=== PATIENT | male | born 1935 | race Caucasian/White ===

== ENCOUNTER → 2018-02-03 08:25 | Outpatient (CLI) | payer MEDICARE, SELFPAY ==
--- NOTE | 2018-02-03 08:25 | DT_ITS ---
This patient was seen during an EMR downtime February 02, 2018 - February 09, 2018. This patient may have a combination of paper and electronic documentation or all paper documentation. All documentation is viewable within the e-chart portion of [facility] for each patient visit.
[2018-02-08 08:50] LABS: Anion Gap 6 (5-15); BUN 14 mg/dL (7-18); BUN/Creat Ratio 16.3 RATIO (10-20); Calcium,Total 8.7 mg/dL (8.5-10.1); Chloride 104 mmol/L (98-107); Cholesterol 94 mg/dL (200); Creatinine, Serum 0.86 mg/dL (0.70-1.30); EST Glomerular Filtration Rate 91 mL/min (>60); Est Glom Filt Rate - Afr Amer 110 mL/min (>60); Glucose 91 mg/dL (74-106); Hemoglobin A1c 6.4 % (4.2-6.3); High Density Lipoprotein 45 mg/dL; Potassium 4.2 mmol/L (3.5-5.1); Sodium Level 137 mmol/L (136-145); Triglycerides 101 mg/dL; Very Low Density Lipoprotein 20 mg/dL (5-40)
== END ==
LOC: MTLAB 02-07 09:17 → MFPLAB 02-07 17:57
PROVIDERS: Family Provider Family Medicine; PCP Family Medicine; Visit Provider Family Medicine
DX: E78.5 Hyperlipidemia, unspecified (principal); I10 Essential (primary) hypertension; E11.9 Type 2 diabetes mellitus without complications
CPT/HCPCS: 80048; 80061; 83036

== ENCOUNTER → 2018-07-21 07:32 | Outpatient (CLI) | payer MEDICARE, SELFPAY ==
[2018-07-21 11:01] LABS: Anion Gap 9 (5-15); BUN 23 mg/dL (7-18); Calcium,Total 8.6 mg/dL (8.5-10.1); Chloride 106 mmol/L (98-107); Cholesterol 93 mg/dL (200); Creatinine, Serum 0.92 mg/dL (0.70-1.30); EST Glomerular Filtration Rate 84 mL/min (>60); Est Glom Filt Rate - Afr Amer 101 mL/min (>60); Glucose 90 mg/dL (74-106); High Density Lipoprotein 41 mg/dL; Potassium 4.4 mmol/L (3.5-5.1); Sodium Level 141 mmol/L (136-145); Triglycerides 85 mg/dL; Very Low Density Lipoprotein 17 mg/dL (5-40)
[2018-07-21 11:08] LABS: Hemoglobin A1c 6.2 % (4.2-6.3)
== END ==
PROVIDERS: Family Provider Family Medicine; PCP Family Medicine; Referring Provider Family Medicine; Visit Provider Family Medicine
DX: I10 Essential (primary) hypertension (principal); E78.5 Hyperlipidemia, unspecified; E11.9 Type 2 diabetes mellitus without complications
CPT/HCPCS: 36415; 80048; 80061; 83036

== ENCOUNTER → 2019-01-27 | Outpatient (CLI) | payer MEDICARE, SELFPAY ==
[2014-03-29 08:07] VITALS: BMI 31.1
[2019-01-27 10:26] LABS: Anion Gap 5 (5-15); BUN 16 mg/dL (7-18); BUN/Creat Ratio 20.8 RATIO (10-20); Calcium,Total 8.8 mg/dL (8.5-10.1); Chloride 105 mmol/L (98-107); Cholesterol 107 mg/dL (200); Creatinine, Serum 0.77 mg/dL (0.70-1.30); EST Glomerular Filtration Rate 103 mL/min (>60); Est Glom Filt Rate - Afr Amer 125 mL/min (>60); Glucose 97 mg/dL (74-106); High Density Lipoprotein 40 mg/dL; Potassium 4.2 mmol/L (3.5-5.1); Sodium Level 139 mmol/L (136-145); Triglycerides 100 mg/dL; Very Low Density Lipoprotein 20 mg/dL (5-40)
[2019-01-27 10:27] LABS: Hemoglobin A1c 6.1 % (4.2-6.3)
== END | disposition home or self-care (01) ==
PROVIDERS: Family Provider Family Medicine; PCP Family Medicine; Referring Provider Family Medicine; Visit Provider Family Medicine
DX: E11.9 Type 2 diabetes mellitus without complications (principal); I10 Essential (primary) hypertension; E78.5 Hyperlipidemia, unspecified
CPT/HCPCS: 36415; 80048; 80061; 83036

== ENCOUNTER → 2020-01-26 08:18 | Outpatient (CLI) | payer MEDICARE, SELFPAY ==
[2020-01-26 10:25] LABS: Anion Gap 7 (5-15); BUN 16 mg/dL (7-18); BUN/Creat Ratio 15.1 RATIO (10-20); Chloride 105 mmol/L (98-107); Cholesterol 96 mg/dL (200); Creatinine, Serum 1.06 mg/dL (0.70-1.30); EST Glomerular Filtration Rate 71 mL/min (>60); Est Glom Filt Rate - Afr Amer 86 mL/min (>60); Glucose 112 mg/dL (74-106); High Density Lipoprotein 44 mg/dL; Potassium 4.4 mmol/L (3.5-5.1); Sodium Level 139 mmol/L (136-145); Triglycerides 74 mg/dL; Very Low Density Lipoprotein 15 mg/dL (5-40)
[2020-01-26 10:33] LABS: Hemoglobin A1c 5.9 % (3.8-5.6)
== END ==
PROVIDERS: PCP Family Medicine; Referring Provider Family Medicine; Visit Provider Family Medicine
DX: I10 Essential (primary) hypertension (principal); R73.03 Prediabetes
CPT/HCPCS: 36415; 80048; 80061; 83036

== ENCOUNTER → 2020-02-08 11:15 | Outpatient (CLI) | payer MEDICARE, SELFPAY ==
[2014-03-29 08:07] VITALS: BMI 31.1
[2020-02-08 15:08] LABS: Absolute Lymphocyte Count 1.47 X10^3/uL (0.83-4.51); Absolute Neutrophil Count 6.9 X10^3/uL (2.0-7.7); Basophil# 0.02 X10^3/uL; Basophil% 0.2 % (0-1); Eosinophils% 2.1 % (0-5); Hematocrit 42.2 % (40-54); Hemoglobin 12.7 g/dL (13.0-16.5); Lymphocyte # 1.47 X10^3/ul (4.0); Lymphocyte % 15.6 % (19-41); Mean Corp Hgb Conc 30.1 g/dL (32-36); Mean Corpuscular Hgb 26.2 pg (27.0-32.0); Mean Platelet Vol. 10.7 fl (6.2-12.0); Monocyte# 0.76 X10^3/uL; Monocyte% 8.1 % (0-10); NRBC Flagged by Analyzer 0 % (0-5); Neutrophil # 6.92 X10^3/uL (2.7-7.7); Neutrophil % 73.6 % (47-70); Platelet Count 291 K/mm3 (150-450); RBC Distribution Width CV 17.2 % (11.6-14.6); RBC Distribution Width SD 54.3 fl (35.1-43.9); Red Blood Count 4.85 M/mm3 (4.6-6.2); White Blood Count 9.4 K/mm3 (4.4-11.0)
[2020-02-08 15:51] LABS: BNP,B-Type NATRIURETIC PEPTIDE 199.9 pg/mL (0-100)
[2020-02-08 15:52] LABS: Thyroid Stim Hormone (TSH) 1.62 uIU/mL (0.358-3.74)
== END ==
PROVIDERS: PCP Family Medicine; Referring Provider Family Medicine; Visit Provider Family Medicine
DX: I48.92 Unspecified atrial flutter (principal)
CPT/HCPCS: 36415; 83880; 84443; 85025

== ENCOUNTER → 2020-03-13 06:43 | Outpatient (CLI) | payer MEDICARE, SELFPAY ==
[2020-03-01 14:37] VITALS: BMI 30.7
--- NOTE | 2020-03-13 06:45 | ECHOCS_ITS ---
Reason For Study: A. fib Procedure This was a 2D Doppler, Color Flow transthoracic echocardiogram. The study was technically difficult. Exam performed in department. Left Ventricle Normal LV size. Left ventricular systolic function is normal. The estimated ejection fraction is 55 %. Diastolic function is indeterminate. Infero-Basal: Hypokinetic. Right Ventricle Normal RV size. Normal systolic function. Atria The left atrium is moderately enlarged. The right atrium is mildly enlarged. Mitral Valve There is mild to moderate mitral annular calcification. Mild (1+) mitral valve insufficiency. Tricuspid Valve Normal tricuspid valve. Aortic Valve Trisinus/trileaflet aortic valve. Mild (1+) aortic valve insufficiency. Pulmonic Valve The pulmonic valve is not well visualized. Great Vessels Normal aortic root. The pulmonary artery is normal size. Normal inferior vena cava. Pericardium/Pleural No pericardial effusion. Medication Diluted definity 1.5ml given slow IV push to enhance endocardial definition. MMode/2D Measurements & Calculations LVIDd: 5.4 cm IVSd: 1.3 cm Ao root diam: 4.1 cm LVIDs: 4.3 cm LVPWd: 1.0 cm RVDd: 3.8 cm FS: 20.3 % LAV(MOD-bp): 114.5 ml LA A4 area: 28.0 cm2 LA dimension(2D): 5.0 cm LAV(MOD-bp) Indexed: 57.2 ml/m2 LAV(MOD-sp2): 129.6 ml LAV(MOD-sp4): 94.1 ml RA A4 area: 24.6 cm2 Doppler Measurements & Calculations MV E max manolo: 123.5 cm/sec Ao V2 max: 166.6 cm/sec LV V1 max: 122.4 cm/sec Ao max P.2 mmHg LV V1 max P.0 mmHg PA V2 max: 108.5 cm/sec Interpretation Summary Normal LV size. Left ventricular systolic function is normal. The estimated ejection fraction is 55 %. Diastolic function is indeterminate. The left atrium is moderately enlarged. Contrast injection was performed. Ordering Physician: Javier Breaux Referring Physician: Javier Breaux Performed By: Yola Ceballos RDCS
--- NOTE | 2020-03-13 11:00 | STRESSREP ---
Stress Test Report Pharmacologic myocardial perfusion stress test. 85-year-old man with a history of coronary artery disease, status post bypass surgery and irregular heartbeat. Stress protocol: Resting EKG demonstrates atrial fibrillation flutter with a rate of 88 bpm. Occasional premature ventricular complexes are noted. Resting blood pressure is 148/72 mmHg. 0.4 mg of regadenoson was infused per usual protocol followed by rapid intravenous saline flush injection continuous EKG monitoring was performed. The maximum heart rate attained was 118 bpm which was 86% of maximum predicted heart rate the maximum workload was 1 metabolic equivalent. At rest there were no ST or T wave changes noted to suggest abnormal flow reserve at peak infusion nonspecific ST-T wave changes were noted to suggest abnormal flow reserve. The resting blood pressure was 148/72 with a final blood pressure 128/62 mmHg. Myocardial perfusion protocol. 14.1 mCi of technetium 99m sestamibi was injected at rest. 0.4 mg of regadenoson was infused per usual protocol. At peak infusion 44.6 mCi of technetium 99m sestamibi was injected stress images were obtained stress and rest images were reconstructed and compared in the short axis vertical long horizontal long axis. Gated images were also obtained Perfusion SPECT analysis: Review of the stress images demonstrate a small defect noted in the apex on the stress images and also on the resting images. The rest of the [place] appear to be fairly well perfused. No obvious areas are noted to suggest ischemia. Gated SPECT analysis: The gated ejection fraction is noted to be 37%. Conclusion: Pharmacologic myocardial perfusion stress test with no evidence of ischemia. Cardiomyopathy present. Atrial fibrillation noted.
== END ==
PROVIDERS: PCP Family Medicine; Referring Provider Internal Medicine Cardiovascular Disease; Visit Provider Internal Medicine Cardiovascular Disease
DX: I48.92 Unspecified atrial flutter (principal); Z95.1 Presence of aortocoronary bypass graft; I25.10 Atherosclerotic heart disease of native coronary artery without angina pectoris
CPT/HCPCS: 78452; 93017; 93306; A9500; Q9957; A4216; C8929; J2785

== ENCOUNTER → 2020-11-13 08:15 | Outpatient (CLI) | payer MEDICARE, SELFPAY ==
[2020-06-05 10:27] VITALS: BMI 30.7
[2020-11-13 09:59] LABS: Absolute Lymphocyte Count 1.58 X10^3/uL (0.83-4.51); Absolute Neutrophil Count 5.7 X10^3/uL (2.0-7.7); Basophil# 0.02 X10^3/uL; Basophil% 0.2 % (0-1); Eosinophil# 0.31 X10^3/uL; Eosinophils% 3.8 % (0-5); Hematocrit 44.6 % (40-54); Hemoglobin 14.1 g/dL (13.0-16.5); Lymphocyte # 1.58 X10^3/ul (4.0); Lymphocyte % 19.2 % (19-41); Mean Corp Hgb Conc 31.6 g/dL (32-36); Mean Corpuscular Hgb 26.8 pg (27.0-32.0); Mean Corpuscular Volume 84.8 fL (80-94); Mean Platelet Vol. 10.6 fl (6.2-12.0); Monocyte# 0.61 X10^3/uL; Monocyte% 7.4 % (0-10); NRBC Flagged by Analyzer 0 % (0-5); Neutrophil # 5.71 X10^3/uL (2.7-7.7); Neutrophil % 69.2 % (47-70); Platelet Count 273 K/mm3 (150-450); RBC Distribution Width SD 52.5 fl (35.1-43.9); Red Blood Count 5.26 M/mm3 (4.6-6.2); White Blood Count 8.3 K/mm3 (4.4-11.0)
[2020-11-13 10:32] LABS: ALB/GLOB Ratio 0.6 RATIO (0.9-2.4); AST(SGOT) 35 U/L (15-37); Alanine Aminotransfer ALT/SGPT 27 U/L (16-61); Albumin, Serum 2.9 g/dL (3.2-5.0); Alkaline Phosphatase 142 U/L (45-117); Anion Gap 6 (5-15); BUN 16 mg/dL (7-18); BUN/Creat Ratio 18.3 RATIO (10-20); Calcium,Total 8.9 mg/dL (8.5-10.1); Chloride 106 mmol/L (98-107); Creatinine, Serum 0.87 mg/dL (0.70-1.30); EST Glomerular Filtration Rate 88 mL/min (>60); Est Glom Filt Rate - Afr Amer 107 mL/min (>60); Globulin 4.9 g/dL (2.2-4.2); Glucose 96 mg/dL (74-106); Potassium 4.1 mmol/L (3.5-5.1); Protein, Total 7.8 g/dL (6.4-8.2); Sodium Level 140 mmol/L (136-145)
== END ==
PROVIDERS: PCP Family Medicine; Referring Provider Family Medicine; Visit Provider Family Medicine
DX: I48.91 Unspecified atrial fibrillation (principal)
CPT/HCPCS: 36415; 80053; 85025

== ENCOUNTER → 2020-12-11 11:55 | Outpatient (CLI) | payer MEDICARE, SELFPAY ==
[2020-06-05 10:27] VITALS: BMI 30.7
[2020-12-11 12:47] LABS: Hematocrit 45.4 % (40-54); Hemoglobin 13.8 g/dL (13.0-16.5); Mean Corp Hgb Conc 30.4 g/dL (32-36); Mean Corpuscular Hgb 26.4 pg (27.0-32.0); Mean Corpuscular Volume 86.8 fL (80-94); Mean Platelet Vol. 9.7 fl (6.2-12.0); Platelet Count 293 K/mm3 (150-450); RBC Distribution Width CV 17.1 % (11.6-14.6); RBC Distribution Width SD 54.8 fl (35.1-43.9); Red Blood Count 5.23 M/mm3 (4.6-6.2); White Blood Count 9.4 K/mm3 (4.4-11.0)
[2020-12-11 13:20] LABS: ALB/GLOB Ratio 0.6 RATIO (0.9-2.4); AST(SGOT) 27 U/L (15-37); Alanine Aminotransfer ALT/SGPT 23 U/L (16-61); Albumin, Serum 2.9 g/dL (3.2-5.0); Alkaline Phosphatase 141 U/L (45-117); Anion Gap 3 (5-15); BUN 24 mg/dL (7-18); Calcium,Total 9.4 mg/dL (8.5-10.1); Chloride 102 mmol/L (98-107); Creatinine, Serum 1.09 mg/dL (0.70-1.30); EST Glomerular Filtration Rate 68 mL/min (>60); Est Glom Filt Rate - Afr Amer 83 mL/min (>60); Globulin 5.1 g/dL (2.2-4.2); Glucose 90 mg/dL (74-106); Potassium 4.6 mmol/L (3.5-5.1); Sodium Level 135 mmol/L (136-145)
== END ==
PROVIDERS: PCP Family Medicine; Referring Provider Urology; Visit Provider Urology
DX: Z01.812 Encounter for preprocedural laboratory examination (principal); E78.5 Hyperlipidemia, unspecified
CPT/HCPCS: 36415; 80053; 85027

== ENCOUNTER → 2020-12-22 14:04 | Outpatient (CLI) | payer MEDICARE, SELFPAY ==
[2020-06-05 10:27] VITALS: BMI 30.7
== END ==
PROVIDERS: PCP Family Medicine; Referring Provider Urology; Visit Provider Urology
DX: Z03.818 Encounter for observation for suspected exposure to other biological agents ruled out (principal)
CPT/HCPCS: 87635; C9803; U0002

== ENCOUNTER → 2021-02-16 07:46 | Outpatient (CLI) | payer MEDICARE, SELFPAY ==
[2021-01-02 07:53] VITALS: BMI 29.3
[2021-02-16 10:11] LABS: Cholesterol 117 mg/dL (200); High Density Lipoprotein 41 mg/dL; Triglycerides 79 mg/dL; Very Low Density Lipoprotein 16 mg/dL (5-40)
== END ==
PROVIDERS: PCP Family Medicine; Referring Provider Family Medicine; Visit Provider Family Medicine
DX: E78.5 Hyperlipidemia, unspecified (principal)
CPT/HCPCS: 36415; 80061

== ENCOUNTER → 2021-07-03 09:50 | Outpatient (CLI) | payer MEDICARE, SELFPAY ==
[2021-07-03 12:56] LABS: ALB/GLOB Ratio 0.6 RATIO (0.9-2.4); AST(SGOT) 37 U/L (15-37); Alanine Aminotransfer ALT/SGPT 29 U/L (16-61); Albumin, Serum 2.9 g/dL (3.2-5.0); Alkaline Phosphatase 127 U/L (45-117); Anion Gap 7 (5-15); BUN 21 mg/dL (7-18); Calcium,Total 9.1 mg/dL (8.5-10.1); Chloride 103 mmol/L (98-107); Creatinine, Serum 0.91 mg/dL (0.70-1.30); EST Glomerular Filtration Rate 84 mL/min (>60); Est Glom Filt Rate - Afr Amer 101 mL/min (>60); Glucose 85 mg/dL (74-106); Protein, Total 7.9 g/dL (6.4-8.2); Sodium Level 137 mmol/L (136-145)
== END ==
PROVIDERS: PCP Family Medicine; Referring Provider Registered Nurse; Visit Provider Registered Nurse
DX: Z00.00 Encounter for general adult medical examination without abnormal findings (principal)
CPT/HCPCS: 36415; 80053

== ENCOUNTER → 2021-07-30 06:26 | Outpatient (CLI) | payer MEDICARE, SELFPAY ==
--- NOTE | 2021-07-30 17:15 | STRESSREP ---
Stress Test Report Pharmacologic myocardial perfusion stress test. 86-year-old man for hip surgery with a history of coronary bypass surgery. Medications aspirin, ramipril, metoprolol, furosemide, rosuvastatin, amlodipine. Stress protocol: Resting EKG demonstrates normal sinus rhythm with a rate of 70 bpm normal intervals are noted. 0.4 mg of regadenoson was infused per usual protocol followed by rapid intravenous saline flush injection continuous EKG monitoring was performed. Patient maintained sinus rhythm throughout the recording with occasional premature ventricular complexes noted. The maximum heart rate attained was 100 bpm which was 74% of max impact at heart rate the maximum workload was 1 metabolic equivalent. At rest there were no ST or T wave changes noted to suggest abnormal flow reserve and at peak infusion nonspecific ST changes were noted no atrial flutter was noted. The peak blood pressure was 154/78 mmHg. Myocardial perfusion protocol. 14.2 mCi of technetium 99m sestamibi was injected at rest. 0.4 mg of regadenoson was infused per usual protocol. At peak infusion 44.6 mCi of technetium 99m sestamibi was injected stress images were obtained stress and rest images were reconstructed and compared in the short axis vertical long horizontal long axis. Gated images were also obtained. Perfusion SPECT analysis: Review of the images demonstrate normal uptake of tracer noted in the basal and mid anterior wall, the septum, the inferior wall, and to the lateral wall. There is a small portion in the distal anterior wall with a mild perfusion defect. The resting images demonstrate a similar pattern with mild improvement in the distal urmila apical wall suggestive of mild apical ischemia. No obvious infarct is noted. Gated SPECT analysis: The gated ejection fraction is 48%. Conclusion: Mildly abnormal pharmacologic with mild distal anteroapical ischemia. Preserved ejection fraction.
== END ==
PROVIDERS: PCP Family Medicine; Referring Provider Nurse Practitioner Family; Visit Provider Nurse Practitioner Family
DX: Z01.810 Encounter for preprocedural cardiovascular examination (principal); I25.10 Atherosclerotic heart disease of native coronary artery without angina pectoris; Z95.1 Presence of aortocoronary bypass graft; I48.92 Unspecified atrial flutter; E78.5 Hyperlipidemia, unspecified; I10 Essential (primary) hypertension
CPT/HCPCS: 78452; 93017; A9500; A4216; J2785

== ENCOUNTER 2021-08-13 07:37 | Day surgery (SDC) | payer MEDICARE, SELFPAY ==
--- NOTE | 2021-08-08 09:45 | RAD_ITS ---
STUDY: XR Chest 2 Views 08/08/2021 9:48 AM REASON FOR EXAM: Male, 86 years old. CHEST PAIN Abnormal nuclear stress COMPARISON: None TECHNIQUE: XR Chest 2 Views FINDINGS: There is no demonstrated pleural abnormality. There are multiple median sternotomy wires. Normal heart size. Normal mediastinum. Normal gloria. Prominent appearing increased interstitial lung markings. Normal visualized pulmonary arteries. There is atherosclerotic calcification of the aortic arch with tortuosity. There are diffuse degenerative changes of the visualized thoracic spine. There is degenerative osteoarthritis of the bilateral shoulders. There is no demonstrated abnormality of the visualized soft tissue structures of the upper abdomen. RAD/Chest PA and Lateral IMPRESSION: There are no acute findings. Electronically Signed: Reji Moreno MD at 17:42 EST , Service support ,
[2021-08-08 09:58] LABS: Absolute Lymphocyte Count 1.53 X10^3/uL (0.83-4.51); Absolute Neutrophil Count 4.3 X10^3/uL (2.0-7.7); Basophil# 0.03 X10^3/uL; Basophil% 0.5 % (0-1); Hematocrit 37.5 % (40-54); Hemoglobin 12.3 g/dL (13.0-16.5); Lymphocyte # 1.53 X10^3/ul (0.83-4.51); Lymphocyte % 24.1 % (19-41); Mean Corp Hgb Conc 32.8 g/dL (32-36); Mean Corpuscular Hgb 28.3 pg (27.0-32.0); Mean Corpuscular Volume 86.4 fL (80-94); Mean Platelet Vol. 10.1 fl (6.2-12.0); Monocyte# 0.48 X10^3/uL; Monocyte% 7.6 % (0-10); NRBC Flagged by Analyzer 0 % (0-5); Neutrophil % 67.6 % (47-70); Platelet Count 207 K/mm3 (150-450); RBC Distribution Width CV 17.2 % (11.6-14.6); RBC Distribution Width SD 55.1 fl (35.1-43.9); Red Blood Count 4.34 M/mm3 (4.6-6.2); White Blood Count 6.4 K/mm3 (4.4-11.0)
[2021-08-08 10:11] LABS: International Normalized Ratio 1.1; Prothrombin Time (Protime)PT. 13.2 SECONDS (11.7-14.9)
[2021-08-08 10:13] LABS: Partial Thromboplast Time 35.1 Seconds (24.1-36.2)
[2021-08-08 10:29] LABS: Anion Gap 7 (5-15); BUN 19 mg/dL (7-18); BUN/Creat Ratio 23.4 RATIO (10-20); Calcium,Total 9.5 mg/dL (8.5-10.1); Chloride 106 mmol/L (98-107); Creatinine, Serum 0.81 mg/dL (0.70-1.30); EST Glomerular Filtration Rate 96 mL/min (>60); Est Glom Filt Rate - Afr Amer 116 mL/min (>60); Glucose 94 mg/dL (74-106); Potassium 4.1 mmol/L (3.5-5.1); Sodium Level 141 mmol/L (136-145)
[2021-08-10 08:00] VITALS: BMI 28.5
--- NOTE | 2021-08-13 10:18 | CL.D_ITS ---
Patient Name: CARIDAD WARD Study Date: 08/13/2021 Performing: Javier Breaux MD Ht: 66.14 inches 168 cm : 1935 Wt: 176.37 lbs 80 kg Age: 86 Gender: male BSA: 1.9 PROCEDURE(S) PERFORMED [id number]-[id number]/COR/CABG [id number]-AO ROOT ANGIO WITH HEART CATH [id number] CLINICAL PROFILE AND INDICATIONS Indications: Stable Known CAD Heart Failure: None Stress/Imaging Date: 08/08/2021 CAD Presentations: No Sxs, no angina. CONCLUSIONS Severe kasaan vessel disease with totally occluded LAD circumflex artery and right coronary artery. Patent left internal mammary artery to the left anterior descending artery Presumed occlusion of the saphenous vein grafts which were not seen on aortogram RECOMMENDATIONS Medical therapy. Patient is at moderate risk for perioperative event with hip surgery. DESCRIPTION OF PROCEDURE The patient arrived to the procedure lab. The risks and benefits of the procedure as well as a full d escription of our services here and current unavailability of surgical backup were fully explained to the patient and/or their significant other prior to the catheterization. The Timeout was completed, verifying the correct patient and procedure. The patient's procedural site was prepped and draped in the usual fashion. Local anesthetic was given subcutaneously to right groin region with Lidocaine 2%. Using a modified Seldinger technique, arterial access was obtained via the right femoral artery, a 5 Fr sheath was inserted. Right Coronary Artery selective angiography was then performed in multiple v iews using a 5 Fr. 3DRC (Dominic) catheter. RCA occluded. Left internal mammary artery graft to the LAD selective angiography was performed in multiple views using a 5 Fr. IM catheter. Left Coronary Ar bere selective angiography was performed in multiple views using a 5 Fr. JL4 catheter. Ascending (root) aorta selective angiography was then performed in single view using 5fr Pigtail cath eter.. Ascending (root) aorta selective angiography was then performed in single view using 5fr Pigta il catheter..The arterial sheath was pulled and manual compression applied until hemostasis is achiev ed. CORONARY ANGIOGRAPHY DOMINANCE: Right Dominant LEFT HEART ASSESSMENT Left Ventricular Ejection Fraction: by Echo 55 % Normal Left Ventricular systolic function LEFT MAIN: Moderate calcification, Distal 80 LEFT ANTERIOR DESCENDING ARTERY: PROX LAD: is occluded CIRCUMFLEX ARTERY: MID CIRC: is occluded RIGHT CORONARY ARTERY: PROX RCA: is occluded GRAFTS: MARTINEZ graft to the Mid LAD is patent AORTIC ROOT: Atherosclerotic No saphenous vein graft bypass grafts are seen COMPLICATIONS No Complications PROCEDURE MEDICATIONS Versed 1 mg IV Fentanyl 50 mcg IV Fentanyl 25 mcg IV Oxygen: 2 L/min via nasal cannula SUMMARY OF HEMODYNAMIC DATA Time AIR REST ECG 08:05:03 AO 142/58 (92) SA 09:46:53 10:11:04 Signed By Javier Breaux MD On 08/13/2021 10:18:09 AM Javier Breaux MD
--- NOTE | 2021-08-13 14:16 | ECHOCS_ITS ---
Reason For Study: s/p CABG Procedure This was a 2D Doppler, Color Flow transthoracic echocardiogram. Technically difficult study, contrast injection performed. Echo done post cath (groin). Exam performed in phlebotomist lab assistant. Left Ventricle Normal LV size. Severe concentric left ventricular hypertrophy. Left ventricular systolic function is normal. The estimated ejection fraction is 60 %. No regional wall motion abnormalities noted. Right Ventricle Normal RV size. Normal systolic function. Atria The left atrium is moderately enlarged. Normal right atrium. Mitral Valve Normal mitral valve. Tricuspid Valve Normal tricuspid valve. Aortic Valve The aortic valve is not well visualized. Pulmonic Valve The pulmonic valve is not well visualized. Great Vessels Normal aortic root. The pulmonary artery is normal size. Normal inferior vena cava. Pericardium/Pleural No pericardial effusion. Medication Diluted definity 2ml given slow IV push to enhance endocardial definition. MMode/2D Measurements & Calculations LVIDd: 5.2 cm IVSd: 1.7 cm LA dimension: 4.5 cm LVIDs: 3.5 cm LVPWd: 1.5 cm FS: 33.8 % LAV(MOD-bp): 88.7 ml LA A4 area: 27.0 cm2 RA A4 area: 22.4 cm2 LAV(MOD-bp) Indexed: 46.7 ml/m2 LAV(MOD-sp2): 80.7 ml LAV(MOD-sp4): 100.1 ml Time Measurements MV dec time: 0.24 sec Doppler Measurements & Calculations MV E max kevin: 94.6 cm/sec Lat Peak E' Kevin: 13.9 cm/sec Med Peak E' Kevin: 7.6 cm/sec MV A max kevin: 92.2 cm/sec E/E' lat: 6.8 E/E' med: 12.5 MV E/A: 1.0 MV V2 max: 104.3 cm/sec MV P1/2t max kevin: 105.9 cm/sec Ao V2 max: 170.8 cm/sec MV max P.4 mmHg MV P1/2t: 130.0 msec Ao max P.7 mmHg MV V2 mean: 63.1 cm/sec MV dec slope: 238.7 cm/sec2 MV mean P.9 mmHg MV V2 VTI: 46.0 cm MVA(P1/2t): 1.7 cm2 LV V1 max: 106.1 cm/sec PA V2 max: 108.1 cm/sec LV V1 max P.5 mmHg ECHO/Echo Complete W/ Contrast Interpretation Summary Normal LV size. Severe concentric left ventricular hypertrophy. Left ventricular systolic function is normal. The estimated ejection fraction is 60 %. Contrast injection was performed. Ordering Physician: Javier Breaux Referring Physician: David Rios Performed By: Edison Waggoner RCS
== END 2021-08-13 15:40 | disposition home or self-care (01) ==
PROVIDERS: PCP Family Medicine; Referring Provider Internal Medicine Cardiovascular Disease; Visit Provider Internal Medicine Cardiovascular Disease
DX: I25.10 Atherosclerotic heart disease of native coronary artery without angina pectoris (principal); I25.82 Chronic total occlusion of coronary artery; Z95.1 Presence of aortocoronary bypass graft; I10 Essential (primary) hypertension; I48.92 Unspecified atrial flutter; E78.5 Hyperlipidemia, unspecified; E66.9 Obesity, unspecified; Z68.28 Body mass index [BMI] 28.0-28.9, adult; I25.2 Old myocardial infarction; M19.90 Unspecified osteoarthritis, unspecified site; I87.2 Venous insufficiency (chronic) (peripheral); Z79.82 Long term (current) use of aspirin; Z79.899 Other long term (current) drug therapy; Z87.891 Personal history of nicotine dependence; R07.9 Chest pain, unspecified; R06.02 Shortness of breath; R93.1 Abnormal findings on diagnostic imaging of heart and coronary circulation
CPT/HCPCS: 36415; 71046; 80048; 85025; 85610; 85730; 93306; 93455; 93567; 99152; 99153; J7040; Q9957; A4216; C1769; C8929; Q9967

== ENCOUNTER 2021-09-08 10:34 | Inpatient (IN) | payer MEDICARE, SELFPAY ==
[2021-09-08] VITALS (11 sets, daily range): BP systolic 114–125; BP diastolic 43–74; PULSE 53–83; RESP 14–20; TEMP 36.1–36.8; O2SAT 92–100; BMI 28.1; BMI 26.7
--- NOTE | 2021-09-08 10:46 | ED.VIS.LOWEX ---
HPI History of Present Illness Chief Complaint: Lower Extremity Injury Detail of Chief Complaint: Fall with left hip injury Informant: patient Narrative Narrative: Patient presents to the emergency department via EMS from home. Patient apparently had a fall where he lost his balance and fell directly onto the left hip. Patient states that he was just discharged from [facility] yesterday after having hip surgery on his left hip. Patient denies striking his head or loss of consciousness. Patient unable to bear weight. Patient states that his son helped get him up yesterday but today unable to walk or bear weight. [facility] Medical History (Updated 09/08/21 @ 12:[address] Rosalino Wetzel, DO) Arthritis Atherosclerosis of coronary artery of [place] heart without angina pectoris Chronic atrial flutter Essential hypertension History of [place] (myocardial infarction) (1983) Hyperlipidemia Left ventricular hypertrophy New onset atrial flutter (02/08/20) Obesity Osteoarthritis Venous insufficiency of both lower extremities Home Medications amlodipine 10 mg PO DAILY 06/23/13 [History Last Taken 08/13/21] pentoxifylline 400 mg PO BID 06/23/13 [History Last Taken 08/13/21] rosuvastatin 20 mg PO QHS 06/23/13 [History Last Taken Unknown] metoprolol tartrate 100 mg-hydrochlorothiazide 25 mg tablet 1 tab PO DAILY 02/24/20 [History Last Taken 08/13/21] multivitamin 1 tab PO DAILY 02/24/20 [History Last Taken Unknown] omega-3 fatty acids-fish oil 360 mg-1,200 mg capsule 1 cap PO DAILY 02/24/20 [History Last Taken Unknown] ramipril 10 mg capsule 10 mg PO DAILY cap 02/24/20 [History Last Taken 08/13/21] aspirin 325 mg tablet 325 mg PO DAILY 06/05/20 [History Last Taken 08/13/21] alfuzosin 10 mg tablet,extended release 24 hr 10 mg PO DAILY 07/19/21 [History Last Taken Unknown] furosemide 20 mg tablet 20 mg PO .COMPLEX PRN tab 07/19/21 [History Last Taken Unknown] doxycycline monohydrate 100 mg PO DAILY 09/08/21 [History Last Taken Unknown] famotidine 20 mg PO DAILY 09/08/21 [History Last Taken Unknown] tramadol 50 mg PO 09/08/21 [History Last Taken Unknown] Allergy/AdvReac Type Severity Reaction Status Date / Time No Known Drug Allergies Allergy NONE Verified 09/08/21 10:35 Family History (Reviewed 07/19/21 @ 10:51 by David Raymundo GOVERNMENT OPERATIONS CONSULTANT, GOVERNMENT OPERATIONS CONSULTANT-C) Mother CAD (coronary artery disease) Sister Cancer lung Surgical History H/O coronary artery bypass surgery (1983) History of carpal tunnel release History of left heart catheterization (08/13/21) History of right hip replacement History of total bilateral knee replacement Social History (Reviewed 07/19/21 @ 10:51 by David Raymundo GOVERNMENT OPERATIONS CONSULTANT, GOVERNMENT OPERATIONS CONSULTANT-C) Smoking Status: Former smoker ROS ROS ED Constitutional Constitutional ED: Reports systems reviewed and no addt'l complaints, except as documented; Denies body ache(s), change in weight or chills Eyes Eyes: Denies acute decrease in peripheral vision, change in vision, double vision or loss of vision ENT ENT ED: Reports none; Denies ear pain, lip swelling, loss taste/smell, neck pain, otalgia or sore throat Cardiovascular Cardiovascular: Reports none; Denies abdominal pain, chest pain with activity, leg edema, lightheadedness, palpitations, rapid heart rate or syncope Respiratory/Chest Respiratory/Chest: Reports none; Denies change in mental status, dry cough, dyspnea, hemoptysis, shortness of breath at rest or shortness of breath with exertion Gastrointestinal Gastrointestinal: Reports none; Denies abdominal pain, change in stool character, diarrhea, hematemesis, hematochezia, melena, rectal bleeding or vomiting Genitourinary Genitourinary ED: Reports none; Denies abdominal discomfort, anuria, dysuria, genital pain or polyuria Musculoskeletal Musculoskeletal: Reports none and other Details: Left hip pain/injury ; Denies arthralgias, back pain, difficulty walking, extremity pain, muscle weakness or myalgias Integumentary Reports none; Denies abscess or rash Neurologic Neurologic: Reports none; Denies abnormal gait, confusion, focal weakness, frequent falls, headache(s), loss of vision, numbness, paresthesias, radicular pain, vertigo or weakness Psychiatric Psychiatric: Reports systems reviewed and no addt'l complaints, except as documented and none; Denies behavioral changes, confusion, difficulty concentrating, hallucinations, suicidal ideation, tactile hallucinations or visual hallucinations Endocrine Endocrinology: Denies none, cold intolerance, excessive sweating, fatigue or heat intolerance Hematologic/Lymphatic Hematologic/Lymphatic: Reports none; Denies anemia, easy bleeding or easy bruising Allergic/Immunologic Allergic/Immunologic ED: Denies as per HPI, none, lip swelling, mouth swelling, throat swelling, tongue swelling or hives EXAM Physical Exam Const Vital Signs: 09/08/21 10:35 09/08/21 11:42 09/08/21 12:11 Temperature 96.9 F L Temperature Source Temporal Pulse Rate 53 L 65 74 Respiratory Rate 14 16 18 Blood Pressure 121/57 H 125/52 H 114/56 L Blood Pressure Mean 78 76 75 Pulse Ox 94 92 97 Oxygen Delivery Method Room Air Room Air Room Air Positive well nourished and well developed General Appearance ED: well developed and NAD HEENT Reports TM's clear and moist mucous membranes normocephalic and atraumatic; Negative for trauma or tenderness Tympanic Membrane ED: Yes TM's clear Eyes PERRL and EOMs intact bilaterally General Eye ED: Negative for pale conjunctiva or scleral icterus Neck no lymphadenopathy, supple and no JVD General: Negative for tenderness Chest Wall inspection of chest normal and palpation of chest normal Chest: Negative for tenderness Resp normal respiratory effort and clear to auscultation bilaterally Effort and Inspection: Negative for respiratory distress or pain with movement Auscultation: Negative for rhonchi, wheezes or diminished lung sounds Cardio S1 normal heart sound, S2 normal heart sound and no murmurs Cardio Narrative: Irregularly irregular Peripheral Pulses: pulses 2+ throughout GI normal to inspection, nondistended, normoactive bowel sounds, soft to palpation, non-tender, non-distended and no masses Back/Spine no CVA tenderness and no thoracic nor lumbar tenderness Extremity Extremity Narrative: Patient with tenderness palpation over left hip with pain with logrolling. The left leg is shortened and externally rotated. Neurovascular intact distally. Patient has surgical wound over the lateral left hip with ecchymosis and bruising around it. General Extremety ED: Negative for edema General Extremity: Negative for edema Neuro oriented x3, CN's II-XII intact bilaterally, no sensory deficits noted and gait normal Sensorium / Orientation: awake, alert, oriented to person, oriented to place and oriented to time Motor Exam: strength 5/5 throughout and strength abnormal Psych mental status grossly normal Skin no rashes or lesions noted and no wounds MDM MDM MDM Narrative Medical decision making narrative: IV line established on arrival. Patient had x-rays of the left hip that did show a periprosthetic fracture. I discussed case with patient's orthopedic doctor Dr. Ashford who asked that we admit to medicine and he will evaluate patient for possible surgical intervention. Lab Data Attestation: I reviewed the patient's lab results. Labs: Laboratory Results - last 24 hr 09/08/21 09/08/21 10:52 10:52 WBC 11.6 H RBC 3.25 L Hgb 9.2 L Hct 28.5 L MCV 87.7 MCH 28.3 MCHC 32.3 RDW Std Deviation 50.0 H RDW Coeff of Denise 15.7 H Plt Count 253 MPV 9.7 Immature Gran % (Auto) 0.800 Neut % (Auto) 82.9 H Lymph % (Auto) 7.4 L [place] % (Auto) 7.8 Eos % (Auto) 0.9 Baso % (Auto) 0.2 Absolute Neuts (auto) 9.6 H Absolute Lymphs (auto) 0.86 Nucleated RBC % 0 Sodium 136 Potassium 3.7 Chloride 98 Carbon Dioxide 30.0 Anion Gap 8 BUN 54 H Creatinine 1.45 H Estim Creat Clear Calc 34.82 Est GFR (MDRD) Af Amer 59 L Est GFR (MDRD) Non-Af 49 L BUN/Creatinine Ratio 37.2 H Glucose 124 H Calcium 8.7 Radiography Diagnostic Testing: Clinical Impression(s) from Imaging Studies Hip/Pelvis X-Ray 09/08/21 11:30 IMPRESSION: Acute appearing bony fracture around the proximal intertrochanteric region of the left hip arthroplasty. Right hip arthroplasty. Electronically Signed: Jazz Diamond MD at 12:28 EST Tel , Service support , Discharge Plan Dx/Rx/DC Orders Clinical Impression: Periprosthetic fracture around internal prosthetic left hip joint Disposition Disposition: Acute Care [facility]
[2021-09-08 11:01] LABS: Absolute Lymphocyte Count 0.86 X10^3/uL (0.83-4.51); Absolute Neutrophil Count 9.6 X10^3/uL (2.0-7.7); Basophil# 0.02 X10^3/uL; Basophil% 0.2 % (0-1); Eosinophils% 0.9 % (0-5); Hematocrit 28.5 % (40-54); Hemoglobin 9.2 g/dL (13.0-16.5); Lymphocyte # 0.86 X10^3/ul (0.83-4.51); Lymphocyte % 7.4 % (19-41); Mean Corp Hgb Conc 32.3 g/dL (32-36); Mean Corpuscular Hgb 28.3 pg (27.0-32.0); Mean Corpuscular Volume 87.7 fL (80-94); Mean Platelet Vol. 9.7 fl (6.2-12.0); Monocyte% 7.8 % (0-10); NRBC Flagged by Analyzer 0 % (0-5); Neutrophil # 9.61 X10^3/uL (2.7-7.7); Neutrophil % 82.9 % (47-70); Platelet Count 253 K/mm3 (150-450); RBC Distribution Width CV 15.7 % (11.6-14.6); Red Blood Count 3.25 M/mm3 (4.6-6.2); White Blood Count 11.6 K/mm3 (4.4-11.0)
[2021-09-08 11:18] LABS: Anion Gap 8 (5-15); BUN 54 mg/dL (7-18); BUN/Creat Ratio 37.2 RATIO (10-20); Calcium,Total 8.7 mg/dL (8.5-10.1); Chloride 98 mmol/L (98-107); Creatinine, Serum 1.45 mg/dL (0.70-1.30); EST Glomerular Filtration Rate 49 mL/min (>60); Est Glom Filt Rate - Afr Amer 59 mL/min (>60); Estimated Creatinine Clearance 34.82 ml/min; Glucose 124 mg/dL (74-106); Potassium 3.7 mmol/L (3.5-5.1); Sodium Level 136 mmol/L (136-145)
--- NOTE | 2021-09-08 11:30 | RAD_ITS ---
STUDY: X-RAY - LEFT FEMUR REASON FOR STUDY: Male, 86 years old. Fall TECHNIQUE: 4 view(s) of the femur. COMPARISON: Left hip x-ray September 08, 2021 FINDINGS: There is an acute fracture of the left proximal femur adjacent to the left medial to the hip arthroplasty with metallic femoral component. There is no significant displacement. The bones are osteopenic. There is partial visualization of the left knee arthroplasty. The proximal tibia appears irregular and is partially visualized on this study. RAD/Femur Min 2 Views IMPRESSION: Acute Fracture line seen adjacent to the left hip arthroplasty femoral metallic components on the medial side of the left femur with possible extension into the left intertrochanteric region. Left knee arthroplasty inhomogeneous appearance of the partially visualized tibia recommend dedicated left knee x-ray. Electronically Signed: Jazz Diamond MD at 12:38 EST Tel , Service support ,
--- NOTE | 2021-09-08 11:30 | RAD_ITS ---
STUDY: X-RAY - PELVIS AND LEFT HIP REASON FOR EXAM: Male, 86 years old. Fall TECHNIQUE: 3 views of the pelvis and hip. COMPARISON: July 06, 2013 right hip x-ray FINDINGS: There is a non-specific bowel gas pattern. No degenerative change of the lumbar spine. There are atherosclerotic vascular calcifications. Normal bilateral iliac wings, sacroiliac joints and visualized sacrum. Normal bilateral superior and inferior pubic rami. Normal pubic symphysis. Normal bilateral ischial tuberosities. There is an acute fracture around the left side hip arthroplasty. There is a visualized fracture of the proximal left femur possibly extending into the greater trochanter. There is a visualized right hip arthroplasty. There is stable heterotopic bone overlying the left inferior pubic ramus. RAD/HIP, UNI W/ Pelvis 2-3 Views IMPRESSION: Acute appearing bony fracture around the proximal intertrochanteric region of the left hip arthroplasty. Right hip arthroplasty. Electronically Signed: Jazz Diamond MD at 12:28 EST Tel , Service support ,
--- NOTE | 2021-09-08 13:00 | EKG12_ITS ---
Test Reason : PREOP Blood Pressure : / mmHG Vent. Rate : 064 BPM Atrial Rate : 064 BPM P-R Int : 264 ms QRS Dur : 172 ms QT Int : 476 ms P-R-T Axes : 083 260 036 degrees QTc Int : 491 ms Sinus rhythm with 1st degree A-V block Right bundle branch block Septal infarct , age undetermined Abnormal ECG No previous ECGs available Confirmed by KELLEE KNOTT, JOHANN ([id number]), international editorial producer KANG HWANG ([id number]) on 09/13/2021 1:51:59 PM Referred By: CARI Confirmed By:STEFAN GOODSON MD
[2021-09-08] MEDS: 0.9% Normal Saline 1,000 ML 75 ML IV (14:38)
[2021-09-08] MEDS: oxyCODONE 5 MG Tablet PO (17:43)
[2021-09-08] MEDS: Tamsulosin HCl 0.4 MG Capsule PO (17:44)
--- NOTE | 2021-09-08 18:16 | HP.PCM.HOS_ITS ---
HPI - General General Date of Admission: 09/08/21 Date of Service: 09/08/21 Chief Complaint: Left hip pain status post fall HPI Narrative CARIDAD WARD, is a 86 M who presented to urgency department at [facility] via EMS from home. The patient had a mechanical fall where he lost his balance and fell directly on his newly operated left hip. The patient was discharged on Friday from [facility] after undergoing a left hip replacement on Friday by Dr. Ashford. The family indicates they have had significant difficulty with him and his mobility, pain control, and ability to be mobile since his discharge from the hospital. It sounds as if he has had more than one fall when talking to the daughter. She states he slid out of his chair yesterday and they had to leave him on the floor as she and her mother whe n unable to get him off the floor at that time and his son had to help get him up into the chair. He is currently complaining of no pain but states he has considerable pain when he tries to ambulate. He had cardiac clearance for his hip replacement by Dr. Breaux on 08/13/2021 where he had a heart catheterization. His vital signs in the emergency department were overall unimpressive. His oxygen saturation was 92 to 100% on room air. His CBC showed mild white count elevation at 11.6, hemoglobin of 9.2 which is below his baseline. His baseline appears to be at 12.3. He has no signs of acute bleeding at this time. Platelet count was normal. His BMP shows normal electrolytes but an elevated BUN and creatinine at 54 and 1.45 respectively. His baseline creatinine appears to be 0.8-1. Of note he is on Lasix and hydrochlorothiazide at home. The rest of his labs were fairly unremarkable. His EKG shows no ST-T wave changes consistent with ischemia but does show a right bundle branch block and a first- degree AV block. Left femoral x-rays show an acute fracture to the left hip arthroplasty femoral metallic components on the medial side of the left femur with possible extension into the intertrochanteric region with pelvic x-rays showing marked proximal intertrochanteric region fracture.The emergency department discussed the case with Dr. Ashford and [facility]. Plan is for [facility] tomorrow. [facility] Medical History Arthritis Atherosclerosis of coronary artery of [place] heart without angina pectoris Chronic atrial flutter Depression Essential hypertension Hearing loss, left Hearing loss, right History of [place] (myocardial infarction) (1983) Hyperlipidemia Left ventricular hypertrophy New onset atrial flutter (02/08/20) Obesity Osteoarthritis Osteoporosis Venous insufficiency of both lower extremities Home Medications amlodipine 10 mg PO DAILY 06/23/13 [History Last Taken 08/13/21] pentoxifylline 400 mg PO BID 06/23/13 [History Last Taken 08/13/21] rosuvastatin 20 mg PO QHS 06/23/13 [History Last Taken Unknown] metoprolol tartrate 100 mg-hydrochlorothiazide 25 mg tablet 1 tab PO DAILY 02/24/20 [History Last Taken 08/13/21] multivitamin 1 tab PO DAILY 02/24/20 [History Last Taken Unknown] omega-3 fatty acids-fish oil 360 mg-1,200 mg capsule 1 cap PO DAILY 02/24/20 [History Last Taken Unknown] ramipril 10 mg capsule 10 mg PO DAILY cap 02/24/20 [History Last Taken ] aspirin 325 mg tablet 325 mg PO BID 06/05/20 [History Last Taken 08/13/21] furosemide 20 mg tablet 20 mg PO DAILY PRN PRN tab 07/19/21 [History Last Taken Unknown] doxycycline monohydrate 100 mg PO BID 09/08/21 [History Last Taken Unknown] famotidine 20 mg PO DAILY 09/08/21 [History Last Taken Unknown] ferrous sulfate [FeroSul] 325 mg PO BID 09/08/21 [History Last Taken Unknown] folic acid 1 mg PO DAILY 09/08/21 [History Last Taken Unknown] sennosides [Senokot] 8.6 mg PO BID PRN 09/08/21 [History Last Taken Unknown] tramadol 50 mg PO Q6H PRN PRN 09/08/21 [History Last Taken Unknown] Allergy/AdvReac Type Severity Reaction Status Date / Time No Known Drug Allergies Allergy NONE Verified 09/08/21 10:35 Family History Mother CAD (coronary artery disease) Sister Cancer lung Surgical History H/O coronary artery bypass surgery (1983) History of appendectomy History of carpal tunnel release History of left heart catheterization (08/13/21) History of right hip replacement History of surgical removal of skin lesion History of total bilateral knee replacement History of total left hip replacement Social History (Updated 09/08/21 @ 18:[address] Shanice Peña DO) Smoking Status: Former smoker alcohol intake: never substance use type: does not use ROS Constitutional Constitutional: Reports weakness; Denies anorexia, change in weight, chills, fatigue, fever(s), malaise, night sweats or other Eyes Eyes: Denies blurry vision, change in eye color, change in vision, discharge from eye(s), double vision, erythema, eye pain, loss of vision or other ENT HEENT: Denies abnormal hearing, dysphagia, ear pain, epistaxis, headache(s), hearing loss, nasal congestion, nasal discharge, post nasal drip, sinus pressure, sore throat or other Cardiovascular Cardiovascular: Denies chest pain, claudication, dyspnea on exertion, edema, lightheadedness, orthopnea, palpitations, paroxysmal nocturnal dyspnea, rapid heart rate, syncope or other Respiratory/Chest Respiratory/Chest: Denies cough, dyspnea, excessive phlegm production, hemoptysis, productive cough, shortness of breath at rest, shortness of breath with exertion, wheezing or other Gastrointestinal Gastrointestinal: Denies abdominal pain, coffee ground emesis, constipation, diarrhea, dyspepsia, hematemesis, hematochezia, loose stools, melena, nausea, vomiting or other Genitourinary Genitourinary: Denies burning urination, difficulty urinating, dysuria, hematuria, nocturia, urinary frequency, urinary hesitancy, urinary incontinence, urinary urgency or other Musculoskeletal Musculoskeletal: Reports joint pain; Denies arthralgias, back pain, joint sti ffness, joint swelling, myalgias, neck pain or other Neurologic Neurologic: Reports abnormal gait; Denies abnormal speech, confusion, disequilibrium, dizziness, focal weakness, headache(s), numbness, paresthesias, seizure-like activity, seizures, syncope, tingling, tremor(s) or other Psychiatric Psychiatric: Denies anxiety, depression, homicidal ideation, suicidal ideation or other Endocrine Endocrinology: Denies change in body appearance, cold intolerance, excessive sweating, heat intolerance, polydipsia, polyuria or other Hematologic/Lymphatic Hematologic/Lymphatic: Denies anemia, easy bleeding, easy bruising, lymphadenopathy or other Allergic/Immunologic Allergic/Immunologic: Denies rhinitis, hives, eczemia, asthma or other Vital Signs Vital Signs Vital Signs: 09/08/21 10:35 09/08/21 11:42 09/08/21 12:11 Temperature 96.9 F L Temperature Source Temporal Pulse Rate 53 L 65 74 Respiratory Rate 14 16 18 Respiratory Effort Respiratory Depth Respiratory Pattern Blood Pressure 121/57 H 125/52 H 114/56 L Blood Pressure Mean 78 76 75 Blood Pressure Source Blood Pressure Position Blood Pressure Location Pulse Ox 94 92 97 Oxygen Delivery Method Room Air Room Air Room Air 09/08/21 13:05 09/08/21 13:49 09/08/21 14:40 Temperature 97.9 F 97.5 F L Temperature Source Temporal Oral Pulse Rate 83 64 Respiratory Rate 20 H 18 Respiratory Effort Normal Respiratory Depth Normal Respiratory Pattern Normal Blood Pressure 116/74 122/44 H Blood Pressure Mean 88 70 Blood Pressure Source Monitor Blood Pressure Position Semi-Fowlers Blood Pressure Location Right Arm Pulse Ox 100 94 Oxygen Delivery Method Room Air Room Air Room Air 09/08/21 16:17 09/08/21 16:46 Temperature Temperature Source Pulse Rate 77 Respiratory Rate Respiratory Effort Respiratory Depth Respiratory Pattern Blood Pressure Blood Pressure Mean Blood Pressure Source Blood Pressure Position Blood Pressure Location Pulse Ox Oxygen Delivery Method Room Air Weight Weight: 77.4 kg Body Mass Index (BMI) 26.7 Physical Exam Const alert, oriented x3 and no apparent distress Constitutional Narrative: Elderly white male lying in bed, appears comfortable at this time, and daughter at bedside, nontoxic General Appearance: cooperative HEENT normocephalic, head/scalp atraumatic and moist oral mucous membranes HEENT Narrative: Mildly hard of hearing, dentures in place, no thrush, Mallampati 2 Eyes PERRL, EOMs intact bilaterally and conjunctivae normal Eyes Narrative: No scleral icterus Neck no lymphadenopathy, supple, no JVD and no carotid bruits Neck Narrative: Trachea midline without thyroid enlargement, no carotid bruits bilaterally Resp normal respiratory effort, no retractions, no use of accessory muscles and clear to auscultation bilaterally Auscultation: Negative for crackles, rales, rhonchi or wheezes Cardio regular rate, regular rhythm, S1 normal heart sound, S2 normal heart sound, no murmurs, no rub, no gallops, no clicks and no JVD GI normal to inspection, nondistended, normoactive bowel sounds, soft to palpation, non-tender and non-distended Extremity Extremity Narrative: Left lower extremity is shortened and externally rotated, site of left hip replacement has dressing in place and is clean dry and intact, ecchymosis surrounding the site, some swelling is present, no cyanosis or clubbing Peripheral Pulses: Yes pulses 2+ throughout Skin no rashes or lesions noted, no wounds, skin turgor normal, no jaundice, no petechiae and no mottling Skin Narrative: See above for surgical incision appearance Neuro oriented x3 and CN's II-XII intact bilaterally Neuro Narrative: Moves all extremities except left lower extremity secondary to pain Sensorium / Orientation: awake and alert Psych affect normal Results Lab / Micro Data Attestation: I reviewed the patient's lab results. Result Diagrams: 09/08/21 10:52 09/08/21 10:52 Labs: Laboratory Results - last 24 hr 09/08/21 10:52: WBC 11.6 H, RBC 3.25 L, Hgb 9.2 L, Hct 28.5 L, MCV 87.7, MCH 28.3, MCHC 32.3, RDW Std Deviation 50.0 H, RDW Coeff of Denise 15.7 H, Plt Count 253, MPV 9.7, Immature Gran % (Auto) 0.800, Neut % (Auto) 82.9 H, Lymph % (Auto) 7.4 L, Gilchrist % (Auto) 7.8, Eos % (Auto) 0.9, Baso % (Auto) 0.2, Absolute Neuts (auto) 9.6 H, Absolute Lymphs (auto) 0.86, Nucleated RBC % 0 09/08/21 10:52: Sodium 136, Potassium 3.7, Chloride 98, Carbon Dioxide 30.0, Anion Gap 8, BUN 54 H, Creatinine 1.45 H, Estim Creat Clear Calc 34.82, Est GFR (MDRD) Af Amer 59 L, Est GFR (MDRD) Non-Af 49 L, BUN/Creatinine Ratio 37.2 H, Glucose 124 H, Calcium 8.7 Radiology Impression Femur X-Ray 09/08/21 11:30 IMPRESSION: Acute Fracture line seen adjacent to the left hip arthroplasty femoral metallic components on the medial side of the left femur with possible extension into the left intertrochanteric region. Left knee arthroplasty inhomogeneous appearance of the partially visualized tibia recommend dedicated left knee x-ray. Electronically Signed: Jazz Diamond MD at 12:38 EST Tel , Service support , Hip/Pelvis X-Ray 09/08/21 11:30 IMPRESSION: Acute appearing bony fracture around the proximal intertrochanteric region of the left hip arthroplasty. Right hip arthroplasty. Electronically Signed: Jazz Diamond MD at 12:28 EST Tel , Service support , Assessment & Plan Assessment/Plan (1) Periprosthetic fracture around internal prosthetic left hip joint: (2) Anemia: (3) ARCHIE (acute kidney injury): PLAN: Acute periprosthetic fracture status post left MERCEDES -Postop day 4 left MERCEDES -Oxycodone for pain management -Bowel regimen -Consult Dr. Ashford from orthopedic surgery--> plan is for OR tomorrow -PT/OT consultations after surgery -Would recommend placement at discharge -Case management is consulted -Weightbearing status per orthopedics -Patient was just cleared by cardiology for his total hip arthroplasty -EKG shows no acute ischemic events or new abnormalities Acute on chronic anemia -Hemoglobin was 9.2 on admission and baseline appears to be in the 12's -Suspect related to recent surgery -We will monitor closely -Repeat CBC in a.m. -Continue home iron supplementation ARCHIE -Baseline serum creatinine 0.8-1 -Current serum creatinine 1.45 -Hold home diuretics -Hold home SALOMÓN inhibitor perioperatively and secondary to ARCHIE -Gentle hydration -Repeat lab in a.m. ? Dysphagia -Patient noted to cough with diet this evening -Patient is n.p.o. after midnight for surgery -We will have speech therapy evaluate -A need to consider modified barium swallow depending on evaluation -Pills with applesauce versus putting at this time Debility/falls -Patient has had issues since discharged after total hip arthroplasty -PT OT consultation for after surgery -Patient will likely need placement at discharge and rehab versus snf facility/TCU CAD/HTN/HPL -Patient underwent cardiac catheterization on 08/13/2021 to clear him for surgery due to an abnormal stress test -This showed severe [place] vessel disease with a totally occluded LAD and circumflex and right coronary artery with a patent MARTINEZ to the LAD and occlusion of the saphenous vein grafts -Medical therapy was recommended at that time and he was considered a moderate risk perioperative event with hip surgery -Has had no changes since that point and risk maintains to be the same -We will hold ramipril until after surgery -Hold HCTZ with mild ARCHIE -Continue metoprolol, amlodipine and statin Paroxysmal atrial flutter -Patient is currently normal sinus rhythm -Continue beta-blanquita -Patient is on aspirin 325 mg twice daily for stroke prevention -Restart tomorrow evening PVD -Continue Trental GERD -Continue famotidine DVT prophylaxis -Start subcu heparin postoperatively CODE STATUS -Full code Charges/Coding Visit Charges Inpatient E&M: 81661 Init Hosp L3
[2021-09-08] MEDS: Metoprolol Tartrate 100 MG Tablet PO (21:11)
[2021-09-08] MEDS: Pentoxifylline 400 MG Tablet PO (21:11)
[2021-09-08] MEDS: Atorvastatin Calcium 40 MG Tablet PO (21:11)
[2021-09-08] MEDS: 0.9% Saline Lock 10 ML Syringe IV ×2 (21:12→22:02)
[2021-09-09] VITALS (25 sets, daily range): BP systolic 94–135; BP diastolic 35–64; PULSE 47–75; RESP 16–18; TEMP 35.8–36.9; O2SAT 93–100; BMI 27.6
[2021-09-09 05:38] LABS: Absolute Lymphocyte Count 0.89 X10^3/uL (0.83-4.51); Absolute Neutrophil Count 7.2 X10^3/uL (2.0-7.7); Basophil# 0.01 X10^3/uL; Basophil% 0.1 % (0-1); Eosinophil# 0.11 X10^3/uL; Eosinophils% 1.2 % (0-5); Hematocrit 26.9 % (40-54); Hemoglobin 8.8 g/dL (13.0-16.5); Lymphocyte # 0.89 X10^3/ul (0.83-4.51); Lymphocyte % 9.8 % (19-41); Mean Corp Hgb Conc 32.7 g/dL (32-36); Mean Corpuscular Hgb 28.7 pg (27.0-32.0); Mean Corpuscular Volume 87.6 fL (80-94); Mean Platelet Vol. 10.1 fl (6.2-12.0); Monocyte% 8.8 % (0-10); NRBC Flagged by Analyzer 0 % (0-5); Neutrophil # 7.24 X10^3/uL (2.7-7.7); Neutrophil % 79.6 % (47-70); Platelet Count 243 K/mm3 (150-450); RBC Distribution Width CV 15.6 % (11.6-14.6); RBC Distribution Width SD 50.1 fl (35.1-43.9); Red Blood Count 3.07 M/mm3 (4.6-6.2); White Blood Count 9.1 K/mm3 (4.4-11.0)
[2021-09-09 06:21] LABS: International Normalized Ratio 1.2; Prothrombin Time (Protime)PT. 14.4 SECONDS (11.7-14.9)
[2021-09-09 06:22] LABS: Partial Thromboplast Time 44.5 Seconds (24.1-36.2)
[2021-09-09 06:30] LABS: ALB/GLOB Ratio 0.4 RATIO (0.9-2.4); AST(SGOT) 79 U/L (15-37); Alanine Aminotransfer ALT/SGPT 39 U/L (16-61); Albumin, Serum 1.8 g/dL (3.2-5.0); Alkaline Phosphatase 122 U/L (45-117); Anion Gap 8 (5-15); BUN 49 mg/dL (7-18); BUN/Creat Ratio 42.6 RATIO (10-20); Calcium,Total 8.2 mg/dL (8.5-10.1); Chloride 99 mmol/L (98-107); Creatinine, Serum 1.15 mg/dL (0.70-1.30); EST Glomerular Filtration Rate 64 mL/min (>60); Est Glom Filt Rate - Afr Amer 78 mL/min (>60); Estimated Creatinine Clearance 43.91 ml/min; Globulin 4.3 g/dL (2.2-4.2); Glucose 116 mg/dL (74-106); Magnesium 2.3 mg/dL (1.6-2.6); Phosphorus 3.2 mg/dL (2.5-4.9); Potassium 3.3 mmol/L (3.5-5.1); Protein, Total 6.1 g/dL (6.4-8.2); Sodium Level 138 mmol/L (136-145)
--- NOTE | 2021-09-09 07:12 | CON.PCM_ITS ---
Assessment & Plan Assessment/Plan (1) ARCHIE (acute kidney injury): (2) Anemia: PLAN: Hemoglobin was 9.2 in the emergency department. This is likely related to blood loss from his surgery earlier this week and internal bleeding from fracture. (3) Periprosthetic fracture around internal prosthetic left hip joint: PLAN: Natural history of the disease process and treatment options were discussed with patient and family. At this time based on the fracture I recommended open reduction internal fixation and revision of the implant to a diaphyseal fitting stem and a dual mobility acetabular component. This should give us good stability. Based on the need for revision and concern for further fracture I recommended a posterior approach for a more extensile option. Risks and benefits of the procedure were discussed including but not limited to blood loss, DVTs, PEs, nervous damage, infection, the risk of anesthesia including loss of life. Also dislocations and leg length discrepancies. Additional fractures were also discussed. At this time patient and family wish to move forward. Patient does show some confusion on examination. For this reason his daughter who is power of ip attorney signed the consent form. Antibiotics on-call to the operating room. Patient is n.p.o. Plan for surgery this morning. [facility] Office: (4) Chronic atrial flutter: (5) Atherosclerosis of coronary artery of [place] heart without angina pectoris: QUALIFIERS: Coronary Disease-Associated Artery/Lesion type: [place] artery Qualified Code(s): I25.10 - Atherosclerotic heart disease of [place] coronary artery without angina pectoris (6) H/O coronary artery bypass surgery: (7) Left ventricular hypertrophy: (8) Essential hypertension: (9) Hyperlipidemia: QUALIFIERS: Hyperlipidemia type: unspecified Qualified Code(s): E78.5 - Hyperlipidemia, unspecified HPI Consult Data Date of Consult: 09/09/21 HPI Narrative HPI Narrative: CARIDAD WARD, is a 86 M with numerous medical comorbidities. He recently had a left total hip replacement on September 04, 2021. Patient met discharge criteria postoperatively and was discharged home the following day. However he has had difficulty with ambulation per reports from the family. Patient does have altered mental status and is poor historian most of the history comes from previous medical reports. Patient's family called me on the phone yesterday noted he had fallen multiple times. They reported he could no longer stand or bear weight. He was directed to go to the emergency department. In the emergency department he was found to have a periprosthetic calcar fracture. He was admitted to medicine in preparation for surgery. He does have recent medical clearance due to his recent surgery. Patient's daughter and are at bedside and give the majority of the recent history today. They note that when he got home he did have lightheadedness when he stood up and needed to gather his bearings. Patient and family note that he had a mechanical fall he states he tripped over a table and fell directly onto his left hip. Since that time he has had increasing difficulty with ambulating and bearing weight. At this time he is unable to bear weight. Pain is worse with weightbearing better with immobilization. Patient denies any associated numbness and tingling at this time. Reports 5 out of 10 pain currently. [facility] Medical History Arthritis Atherosclerosis of coronary artery of [place] heart without angina pectoris Chronic atrial flutter Depression Essential hypertension Hearing loss, left Hearing loss, right History of [place] (myocardial infarction) (1983) Hyperlipidemia Left ventricular hypertrophy New onset atrial flutter (02/08/20) Obesity Osteoarthritis Osteoporosis Venous insufficiency of both lower extremities Home Medications amlodipine 10 mg PO DAILY 06/23/13 [History Last Taken 08/13/21] pentoxifylline 400 mg PO BID 06/23/13 [History Last Taken 08/13/21] rosuvastatin 20 mg PO QHS 06/23/13 [History Last Taken Unknown] metoprolol tartrate 100 mg-hydrochlorothiazide 25 mg tablet 1 tab PO DAILY 02/24/20 [History Last Taken 08/13/21] multivitamin 1 tab PO DAILY 02/24/20 [History Last Taken Unknown] omega-3 fatty acids-fish oil 360 mg-1,200 mg capsule 1 cap PO DAILY 02/24/20 [History Last Taken Unknown] ramipril 10 mg capsule 10 mg PO DAILY cap 02/24/20 [History Last Taken 08/13/21] aspirin 325 mg tablet 325 mg PO BID 06/05/20 [History Last Taken 08/13/21] furosemide 20 mg tablet 20 mg PO DAILY PRN PRN tab 07/19/21 [History Last Taken Unknown] doxycycline monohydrate 100 mg PO BID 09/08/21 [History Last Taken Unknown] famotidine 20 mg PO DAILY 09/08/21 [History Last Taken Unknown] ferrous sulfate [FeroSul] 325 mg PO BID 09/08/21 [History Last Taken Unknown] folic acid 1 mg PO DAILY 09/08/21 [History Last Taken Unknown] sennosides [Senokot] 8.6 mg PO BID PRN 09/08/21 [History Last Taken Unknown] tramadol 50 mg PO Q6H PRN PRN 09/08/21 [History Last Taken Unknown] Allergy/AdvReac Type Severity Reaction Status Date / Time No Known Drug Allergies Allergy NONE Verified 09/08/21 10:35 Family History Mother CAD (coronary artery disease) Sister Cancer lung Surgical History H/O coronary artery bypass surgery (1983) History of appendectomy History of carpal tunnel release History of left heart catheterization (08/13/21) History of right hip replacement History of surgical removal of skin lesion History of total bilateral knee replacement History of total left hip replacement Social History (Updated 09/08/21 @ 18:[address] Shanice Peña DO) Smoking Status: Former smoker alcohol intake: never substance use type: does not use ROS Review of Systems ROS Unobtainable: due to mental status Physical Exam Const alert and average body habitus Constitutional Narrative: Confused General Appearance: cooperative Extremity Extremity Narrative: Left lower extremity: Previous dressing is clean dry and intact. Patient was clean dry and intact. Limb is shortened and externally rotated Motor is intact dorsiflexion, EHL and plantar flexion. Sensation is intact to light touch saphenous, sanaz,l superficial peroneal, deep peroneal and tibial distributions. Calves are soft and supple. Lab / Micro Data Result Diagrams: 09/09/21 04:45 09/09/21 04:45 Labs: Laboratory Results - last 24 hr 09/08/21 10:52: WBC 11.6 H, RBC 3.25 L, Hgb 9.2 L, Hct 28.5 L, MCV 87.7, MCH 28.3, MCHC 32.3, RDW Std Deviation 50.0 H, RDW Coeff of Denise 15.7 H, Plt Count 253, MPV 9.7, Immature Gran % (Auto) 0.800, Neut % (Auto) 82.9 H, Lymph % (Auto) 7.4 L, [place] % (Auto) 7.8, Eos % (Auto) 0.9, Baso % (Auto) 0.2, Absolute Neuts (auto) 9.6 H, Absolute Lymphs (auto) 0.86, Nucleated RBC % 0 09/08/21 10:52: Sodium 136, Potassium 3.7, Chloride 98, Carbon Dioxide 30.0, Anion Gap 8, BUN 54 H, Creatinine 1.45 H, Estim Creat Clear Calc 34.82, Est GFR (MDRD) Af Amer 59 L, Est GFR (MDRD) Non-Af 49 L, BUN/Creatinine Ratio 37.2 H, Glucose 124 H, Calcium 8.7 09/09/21 04:45: WBC 9.1, RBC 3.07 L, Hgb 8.8 L, Hct 26.9 L, MCV 87.6, MCH 28.7, MCHC 32.7, RDW Std Deviation 50.1 H, RDW Coeff of Denise 15.6 H, Plt Count 243, MPV 10.1, Immature Gran % (Auto) 0.500, Neut % (Auto) 79.6 H, Lymph % (Auto) 9.8 L, [place] % (Auto) 8.8, Eos % (Auto) 1.2, Baso % (Auto) 0.1, Absolute Neuts (auto) 7.2, Absolute Lymphs (auto) 0.89, Nucleated RBC % 0 09/09/21 04:45: Sodium 138, Potassium 3.3 L, Chloride 99, Carbon Dioxide 31.0, Anion Gap 8, BUN 49 H, Creatinine 1.15, Estim Creat Clear Calc 43.91, Est GFR (MDRD) Af Amer 78, Est GFR (MDRD) Non-Af 64, BUN/Creatinine Ratio 42.6 H, G lucose 116 H, Calcium 8.2 L, Phosphorus 3.2, Magnesium 2.3, Total Bilirubin 0.90, AST 79 H, ALT 39, Alkaline Phosphatase 122 H, Total Protein 6.1 L, Albumin 1.8 L, Globulin 4.3 H, Albumin/Globulin Ratio 0.4 L 09/09/21 04:45: PT 14.4, INR 1.2, APTT 44.5 H 09/09/21 04:45: Blood Type O POSITIVE, Antibody Screen NEGATIVE Micro: Microbiology 09/08/21 19:00 Nasal Secretion SARS-CoV-2 Antigen (Rapid) - Final Radiology Impression Femur X-Ray 09/08/21 11:30 IMPRESSION: Acute Fracture line seen adjacent to the left hip arthroplasty femoral metallic components on the medial side of the left femur with possible extension into the left intertrochanteric region. Left knee arthroplasty inhomogeneous appearance of the partially visualized tibia recommend dedicated left knee x-ray. Electronically Signed: Jazz Diamond MD at 12:38 EST Tel , Service support , Hip/Pelvis X-Ray 09/08/21 11:30 IMPRESSION: Acute appearing bony fracture around the proximal intertrochanteric region of the left hip arthroplasty. Right hip arthroplasty. Electronically Signed: Jazz Diamond MD at 12:28 EST Tel , Service support ,
--- NOTE | 2021-09-09 07:22 | NURSING ---
verbal report called to Jonelle in OR.
[2021-09-09] MEDS: Lactated Ringers 1,000 ML 50 ML IV (09:30)
--- NOTE | 2021-09-09 09:49 | PCM.OPRPT ---
Report of Operation Date of Procedure: 09/09/21 Pre-Operative Diagnosis: Left hip periprosthetic [place] B2 femur fracture Post-Operative Diagnosis: Left hip periprosthetic [place] B2 femur fracture Surgery/Procedure Performed:: Open reduction internal fixation left proximal femur with revision left total replacement both components Description of Surgical Findings:: Acetabular component was revised to a dual mobility component for increased ability due to the posterior approach and previous anterior approach. Leg lengths were equal. Hips were stable. Significant comminution of the posterior calcar fragment. Surgeon: Fitz Ashford urban and regional planner: Amarjit Cee Type of Anesthesia: General Anesthesiologist: Daini Vasques Special Medications: 2 g Ancef, 2 g TXA in the wound prior to closure for lavage Specimen's removed: Posterior lateral calcar fragments were comminuted and with poor blood supply. These were excised. Estimated Blood Loss (mL): 600 Fluids Replaced: 1200 mL crystalloid Description of Procedure: Components used: 1. Sly 18 mm 195 mm religious modular conical stem 2. [place] religious modular 21 mm cone body 3. [place] X3 polyethylene liner, for dual mobility alpha code E 4. [place] Biolox delta 28 mm, -4 mm neck femoral head 5. Sly MDM cobalt-chromium metal shell alpha code E Brief history operative indications: 86-year-old male who had a left total hip replacement 5 days ago. He was discharged home after surgery and had multiple falls. His first fall involved a fall directly onto his left hip. He had difficulty with weightbearing. Was brought to the emergency department found to have a periprosthetic femur fracture. At this time we elected to proceed with ORIF and revision hip replacement to a diaphyseal fitting stem. Risks and benefits were discussed with the patient which included but were not limited to blood loss, DVTs, PEs, infection, neurovascular damage, and dislocation. In light of all this patient did agree to proceed with a total hip arthroplasty. Procedure: On the date of procedure the patient's L hip was marked in the preoperative area. Patient was then taken back to the operating room where anesthesia assumed control of the C-spine and airway and administered anesthetic. Patient was transferred to the operating table and placed in the lateral decubitus position with the affected hip up. The patient was secured in the bed with the lateral positioners and leg lengths were checked. The L lower extremity was then prepped out in a sterile fashion using chlorhexidine while the surgeon scrubbed. Upon reentering the room the L lower extremity was draped in the standard orthopedic fashion and the incision was marked. A timeout was called and everyone agreed upon the side, the site, the procedure be performed, antibiotics given, and patient's identity. At this time incision was made through skin, subcutaneous tissue, and fat down to fascia. The fascia was then incised and a Charley retractor was placed. The soft tissue was then cleared from the posterior external rotators and the piriformis was identified. Piriformis was taken down and tagged. The remainder of the short external rotators were taken down. Capsulotomy was made and the posterior capsule was tagged. At this time we carefully dissected down to the fracture. The calcar fragment was significantly comminuted and pinned posteriorly. We directed our attention back to the hip or we dislocated the hip and then remove the femoral stem and femoral head. We directed him to the acetabulum where the acetabular liner was removed. The metal shell remained stably fixed. Once this was done we directed our attention again to the fracture. 2 cables were passed around the fracture the lesser trochanter was identified. Initially the 2 cables were placed below the lesser trochanter. After provisional fixation the femur was exposed and we reamed the femur to an 18 mm 195 mm stem. All retractors were removed and the wound was moustapha irrigated out with normal saline. Our attention was then directed to the acetabulum and the anterior retractor was placed and a Zelpi was used to retract the posterior capsule superiorly. All soft tissue debris was was debrided from around the acetabular rim. The 42E acetabular liner was opened and impacted into place. The De La Torre taper was verified and found to be appropriate. The proximal femur was again exposed and the final stem was verified and opened. The wound was copiously irrigated out with normal saline. The acetabulum was checked for any residual debris. The final stem was placed and impacted. At this time we then reamed proximally for the cone body. Initially we wanted to use a 25 mm cone body however after reaming and reduction it was found to have increased leg length. We downsized to a 21 mm cone body based on her increased length with a -4 femoral head. Trial component was placed. Traction and external rotation were again used to reduce the hip. After adequate reduction the hip remained stable with appropriate leg lengths. Hip was once again dislocated with the help of my physician patient care nursing assistant and trial components were removed. Final components opened and assembled on the back table. Cone body was impacted into place De La Torre taper was checked and appropriate. Final screw was placed. Trunnion was cleaned. MDM femoral head was assembled and impacted into place. Once this was done we again reassessed the fracture. With better visualization as well as concerns for the greater trochanteric fracture we did remove one of the lower cables we placed one cable above and one cable below the lesser trochanter carefully tensioned him crimped them and cut them. Once this was done the fracture remained stable. The hip was reduced. We had good leg lengths we had stability to flexion 90 degrees and internal rotation 40 degrees. At this point, the wound was then copiously irrigated with normal saline once more, and hemostasis was obtained. The posterior capsule and piriformis were not repairable. Closure was then done using #1 Vicryl to close the fascia. A 2-0 Vicryl interrupted sutures were used to close the subcutaneous skin. Nylon suture for final skin closure. A sterile dressing was placed. Patient was awakened by anesthesia [facility] Patient was then transferred to the PACU for recovery. Postoperative plan: Patient will get 24 hours postop antibiotics. Patient will get in-house physical therapy strict posterior hip precautions for 6 weeks. Partial weightbearing 50% for 6 weeks. No active abduction for 6 weeks. Due to patient's weightbearing restrictions and concerns for limited activity we will use Eliquis 2.5 mg bid for DVT prophylaxis. Patient will follow up in office in 2 weeks for a wound check and x-rays. 2 weeks of doxycycline due to patient's high risk nature. Patient did have hemoglobin of 8.8 preoperatively. Blood loss was 600 we will check CBC in PACU. During the course of the procedure the physician veterinary laboratory diagnostician (PE) played a vital role. Their intimate knowledge of my steps in the procedure aided in safe and expedient completion of the procedure. The PE played a vital rolls in positioning particularly in obtaining the appropriate lateral decubitus position. The PE was also vital in the retraction of soft tissues during the exposure and especially the femoral work as this is a vital part of the procedure to prevent complications and fractures. The PE was also vital and protecting soft tissues during times of bony cuts and reaming. He also played a vital role in closure with my direct supervision. The PE was also important during reduction and dislocation of the joint and trials intraoperatively. Complications No intraoperative complications were encountered Admit VTE Documentation VTE Present on Admission: No VTE Mechan Device Prophylaxis: SCD's and Thigh High KATHERINE Hose VTE Pharm Prophylaxis ordered?: Yes
--- NOTE | 2021-09-09 11:05 | RAD_ITS ---
STUDY: X-RAY - PELVIS AND LEFT HIP REASON FOR EXAM: Male, 86 years old. Postoperative exam. TECHNIQUE: 3 views of the pelvis and hip. COMPARISON: 09/08/2021. FINDINGS: Status post revision of left hip arthroplasty right hip arthroplasty unchanged. No evidence of fracture. Gas in soft tissues consistent with recent surgery. RAD/Hip Min 2 Views (Portable) IMPRESSION: Status post revision of left hip arthroplasty. Electronically Signed: Saurav Gaston, at 13:16 EST Tel , Service support ,
[2021-09-09 11:18] LABS: Hematocrit 24.3 % (40-54); Hemoglobin 8.2 g/dL (13.0-16.5); Mean Corp Hgb Conc 33.7 g/dL (32-36); Mean Corpuscular Hgb 29.6 pg (27.0-32.0); Mean Corpuscular Volume 87.7 fL (80-94); Mean Platelet Vol. 9.8 fl (6.2-12.0); Platelet Count 235 K/mm3 (150-450); RBC Distribution Width CV 15.6 % (11.6-14.6); RBC Distribution Width SD 49.8 fl (35.1-43.9); Red Blood Count 2.77 M/mm3 (4.6-6.2); White Blood Count 9.7 K/mm3 (4.4-11.0)
[2021-09-09] MEDS: Potassium Chloride 10mEq/100mL 10 MEQ/100 ML IV.SOLN. 100 MEQ IV BOLUS ×4 (12:30→16:41)
[2021-09-09] MEDS: Acetaminophen 500 MG Tablet 1000 MG PO ×2 (14:58→21:22)
--- NOTE | 2021-09-09 16:33 | PN.HOSP_ITS ---
Subjective Subjective Patient states he is feeling well. He is a bit tearful because he misses his . He sitting up in a chair postoperatively. His [id number]-pko is at the bedside visiting. He currently is denying any pain in his left hip. Objective Data Objective Data Vital Signs: Vital Signs Temp Pulse Resp BP Pulse Ox 97.7 F L 62 18 95/63 98 09/09/21 14:09 09/09/21 15:57 09/09/21 14:09 09/09/21 14:09 09/09/21 14:09 Oxygen Flow Rate (L/min) 2 Oxygen Delivery Method Nasal Cannula Weight: 80.1 kg Body Mass Index (BMI) 27.6 Intake & Output: Intake and Output for Last 24 Hours 09/07/21 09/08/21 09/09/21 23:59 23:59 23:59 Intake Total 2542.5 / 2542.5 Output Total 700 / 700 0 / 0 Balance -700 / -600 2542.5 / 2542.5 Lab / Micro Data Result Diagrams: 09/09/21 11:02 09/09/21 04:45 Labs: Laboratory Results - last 24 hr 09/09/21 04:45: WBC 9.1, RBC 3.07 L, Hgb 8.8 L, Hct 26.9 L, MCV 87.6, MCH 28.7, MCHC 32.7, RDW Std Deviation 50.1 H, RDW Coeff of Denise 15.6 H, Plt Count 243, MPV 10.1, Immature Gran % (Auto) 0.500, Neut % (Auto) 79.6 H, Lymph % (Auto) 9.8 L, Merrick % (Auto) 8.8, Eos % (Auto) 1.2, Baso % (Auto) 0.1, Absolute Neuts (auto) 7.2, Absolute Lymphs (auto) 0.89, Nucleated RBC % 0 09/09/21 04:45: Sodium 138, Potassium 3.3 L, Chloride 99, Carbon Dioxide 31.0, Anion Gap 8, BUN 49 H, Creatinine 1.15, Estim Creat Clear Calc 43.91, Est GFR (MDRD) Af Amer 78, Est GFR (MDRD) Non-Af 64, BUN/Creatinine Ratio 42.6 H, Glucose 116 H, Calcium 8.2 L, Phosphorus 3.2, Magnesium 2.3, Total Bilirubin 0.90, AST 79 H, ALT 39, Alkaline Phosphatase 122 H, Total Protein 6.1 L, Albumin 1.8 L, Globulin 4.3 H, Albumin/Globulin Ratio 0.4 L 09/09/21 04:45: PT 14.4, INR 1.2, APTT 44.5 H 09/09/21 04:45: Blood Type O POSITIVE, Antibody Screen NEGATIVE 09/09/21 04:45: Crossmatch See Detail 09/09/21 11:02: WBC 9.7, RBC 2.77 L, Hgb 8.2 L, Hct 24.3 L, MCV 87.7, MCH 29.6, MCHC 33.7, RDW Std Deviation 49.8 H, RDW Coeff of Denise 15.6 H, Plt Count 235, MPV 9.8 Micro: Microbiology 09/08/21 19:00 Nasal Secretion SARS-CoV-2 Antigen (Rapid) - Final Radiography Diagnostic Testing: Radiology Impression Hip X-Ray 09/09/21 11:05 IMPRESSION: Status post revision of left hip arthroplasty. Electronically Signed: Saurav Pearlvenkatesh, at 13:16 EST Tel , Service support , Physical Exam Const alert, oriented x3 and no apparent distress Constitutional Narrative: Elderly white male sitting up in a chair at the bedside, appears comfortable at this time, vvgxyfls-[id number] is at the bedside, nontoxic, patient is very pleasant and appears well General Appearance: cooperative Exam Limitations: no limitations HEENT normocephalic, head/scalp atraumatic and moist oral mucous membranes Head and Scalp: normocephalic Eyes Eyes Narrative: No scleral icterus Resp normal respiratory effort, no retractions, no use of accessory muscles and clear to auscultation bilaterally Auscultation: Negative for crackles, rales, rhonchi or wheezes Cardio regular rate, regular rhythm, S1 normal heart sound, S2 normal heart sound, no rub, no gallops, no clicks and no JVD Cardio Narrative: 2 out of 6 systolic murmur GI normal to inspection, nondistended, normoactive bowel sounds, soft to palpation, non-tender and non-distended Extremity Extremity Narrative: Left lower extremity with [address] both are clean dry and intact, surrounding ecchymosis with no significant tenderness, bilateral KATHERINE hose in place no significant clubbing or cyanosis, trace right lower extremity edema Peripheral Pulses: Yes pulses 2+ throughout Neuro oriented x3, CN's II-XII intact bilaterally, moves all extremities and no focal motor deficits Sensorium / Orientation: awake and alert Speech: speech normal Assessment & Plan Assessment/Plan (1) Periprosthetic fracture around internal prosthetic left hip joint: (2) Anemia: (3) ARCHIE (acute kidney injury): PLAN: Acute periprosthetic fracture status post left MERCEDES -Postop day 5 left MERCEDES -Postop day 0 of ORIF of left proximal femoral fracture with revision of left total replacement of both components -Plan is for 24 hours of postoperative antibiotics -Strict hip precautions for 6 weeks -Partial weightbearing with no active abduction for 6 weeks -Follow-up in the orthopedic office in 2 weeks for wound check and postoperative x-rays -2 weeks of oral doxycycline secondary to high risk -Oxycodone for pain management -Bowel regimen -PT/OT consultations a -Would recommend placement at discharge -Case management is consulted -Weightbearing status per orthopedics -Patient was just cleared by cardiology for his total hip arthroplasty -EKG shows no acute ischemic events or new abnormalities Acute on chronic anemia -Hemoglobin was 9.2 on admission and baseline appears to be in the 12's -Dropped to 8.2 after surgery and blood was transfused by anesthesia postoperatively -Suspect related to recent surgery -We will monitor closely -Repeat CBC in a.m. -Continue home iron supplementation ARCHIE -Baseline serum creatinine 0.8-1 -Serum creatinine 1.54 on admission and now down to 1.15 -Continue to hold home diuretics -Continue to hold home SALOMÓN inhibitor perioperatively and secondary to ARCHIE -Consider restarting tomorrow if remains stable -Gentle hydration with LR at 50 cc/h -Repeat lab in a.m. ? Dysphagia -Patient noted to cough with diet on the evening admission -Patient remains n.p.o. -Beach therapy to see patient tomorrow -May need MBS -Pills with applesauce versus pudding at this time Debility/falls -Patient has had issues since discharged after total hip arthroplasty -PT OT consultation for after surgery -Patient will likely need placement at discharge and rehab versus custodial facility/TCU CAD/HTN/HPL -Patient underwent cardiac catheterization on 08/13/2021 to clear him for pike rgery due to an abnormal stress test -This showed severe salamatof vessel disease with a totally occluded LAD and circumflex and right coronary artery with a patent MARTINEZ to the LAD and occlusion of the saphenous vein grafts -Medical therapy was recommended at that time and he was considered a moderat e risk perioperative event with hip surgery -Has had no changes since that point and risk maintains to be the same -Continue to hold ramipril at this time -Hold HCTZ with mild ARCHIE -Continue metoprolol, amlodipine and statin Paroxysmal atrial flutter -Patient is currently normal sinus rhythm -Continue beta-blanquita -Patient is on aspirin 325 mg twice daily for stroke prevention -Restart this evening PVD -Continue Trental GERD -Continue famotidine DVT prophylaxis -Twice daily Eliquis 2.5 mg per orthopedic surgery for DVT prophylaxis -SCDs CODE STATUS -Full code Charges/Coding Visit Charges Inpatient E&M: 83691 Subs Hosp L2
[2021-09-09] MEDS: Tamsulosin HCl 0.4 MG Capsule PO (16:59)
[2021-09-09] MEDS: Cefazolin 1 GM/50 ML BAG IV (16:59)
[2021-09-09] MEDS: Aspirin 325 MG Tablet PO (16:59)
[2021-09-09] MEDS: Senna/Docusate Sodium 1 Tablet 2 TABLET PO (21:22)
[2021-09-09] MEDS: Metoprolol Tartrate 100 MG Tablet PO (21:22)
[2021-09-09] MEDS: Atorvastatin Calcium 40 MG Tablet PO (21:22)
[2021-09-09] MEDS: Pentoxifylline 400 MG Tablet PO (21:22)
--- NOTE | 2021-09-09 23:17 | NURSING ---
Pt straight cathed per order r/t inability to void q8hrs
[2021-09-10] VITALS (7 sets, daily range): BP systolic 86–107; BP diastolic 36–75; PULSE 48–87; RESP 16; TEMP 36.4–36.8; O2SAT 94–98
[2021-09-10] MEDS: Cefazolin 1 GM/50 ML BAG IV (00:18)
[2021-09-10] MEDS: oxyCODONE 5 MG Tablet PO ×2 (00:18→05:26)
[2021-09-10 06:04] LABS: Hemoglobin 8.2 g/dL (13.0-16.5); Mean Corp Hgb Conc 32.8 g/dL (32-36); Mean Corpuscular Hgb 29.2 pg (27.0-32.0); Mean Platelet Vol. 10.2 fl (6.2-12.0); Platelet Count 199 K/mm3 (150-450); RBC Distribution Width CV 15.4 % (11.6-14.6); Red Blood Count 2.81 M/mm3 (4.6-6.2)
[2021-09-10 06:29] LABS: Anion Gap 6 (5-15); BUN 45 mg/dL (7-18); Calcium,Total 7.8 mg/dL (8.5-10.1); Chloride 103 mmol/L (98-107); Creatinine, Serum 0.96 mg/dL (0.70-1.30); EST Glomerular Filtration Rate 79 mL/min (>60); Est Glom Filt Rate - Afr Amer 96 mL/min (>60); Glucose 101 mg/dL (74-106); Potassium 3.7 mmol/L (3.5-5.1); Sodium Level 138 mmol/L (136-145)
[2021-09-10] MEDS: Acetaminophen 500 MG Tablet 1000 MG PO ×2 (06:32→13:57)
--- NOTE | 2021-09-10 06:54 | PN.ORTHO_ITS ---
Subjective Subjective The patient was sitting in bed upon examination. Patient denies any chest pain, shortness of breath, dizziness, lightheadedness, nausea or vomiting, or calf pain. Pain is controlled on medications. No adverse overnight events. Patient states he did not sleep very well overnight due to the soreness and pain. Me dications are helpful. He also states his heel bothers him how he is laying in the bed. However the eggshell for his foot was not in appropriate position. Nursing states he did require a straight cath. He also had transfusion of 1 unit packed red blood cells postoperatively. Objective Data Objective Data Vital Signs: Vital Signs Temp Pulse Resp BP Pulse Ox 97.9 F 64 16 100/40 L 94 09/10/21 03:00 09/10/21 03:00 09/10/21 03:00 09/10/21 03:00 09/10/21 03:00 Oxygen Flow Rate (L/min) 2 Oxygen Delivery Method Room Air Weight: 78.2 kg Body Mass Index (BMI) 27.6 Intake & Output: Intake and Output for Last 24 Hours 09/08/21 09/09/21 09/10/21 23:59 23:59 23:59 Intake Total 2832.5 / 2832.5 737.5 / 737.5 Output Total 700 / 700 875 / 875 Balance -700 / -600 1957.5 / 1957.5 737.5 / 737.5 Lab / Micro Data Result Diagrams: 09/10/21 05:25 09/10/21 05:25 Labs: Laboratory Results - last 24 hr 09/09/21 04:45: Blood Type O POSITIVE, Antibody Screen NEGATIVE 09/09/21 04:45: Crossmatch See Detail 09/09/21 11:02: WBC 9.7, RBC 2.77 L, Hgb 8.2 L, Hct 24.3 L, MCV 87.7, MCH 29.6, MCHC 33.7, RDW Std Deviation 49.8 H, RDW Coeff of Denise 15.6 H, Plt Count 235, MPV 9.8 09/10/21 05:25: WBC 8.0, RBC 2.81 L, Hgb 8.2 L, Hct 25.0 L, MCV 89.0, MCH 29.2, MCHC 32.8, RDW Std Deviation 49.0 H, RDW Coeff of Denise 15.4 H, Plt Count 199, MPV 10.2 09/10/21 05:25: Sodium 138, Potassium 3.7, Chloride 103, Carbon Dioxide 29.0, Anion Gap 6, BUN 45 H, Creatinine 0.96, Estim Creat Clear Calc 52.60, Est GFR (MDRD) Af Amer 96, Est GFR (MDRD) Non-Af 79, BUN/Creatinine Ratio 47.0 H, Glucose 101, Calcium 7.8 L Micro: Microbiology 09/08/21 19:00 Nasal Secretion SARS-CoV-2 Antigen (Rapid) - Final Radiography Diagnostic Testing: Radiology Impression Hip X-Ray 09/09/21 11:05 IMPRESSION: Status post revision of left hip arthroplasty. Electronically Signed: Saurav Gatson, at 13:16 EST Tel , Service support , Physical Exam Narrative Vital signs stable and afebrile. Patient did have some overnight low blood pressure. He denies any chest pain or shortness of breath or dizziness/feelings of syncope. Patient is able to plantarflex and dorsiflex actively. Sensation is intact to light touch to saphenous, sural, superficial and deep peroneal, and tibial distribution. Both dressings are clean dry and intact. There is minimal drainage appreciated throughout both dressings Negative Homans bilaterally, negative signs and symptoms of DVT. Const alert, oriented x3 and no apparent distress Assessment & Plan Assessment/Plan (1) Periprosthetic fracture around internal prosthetic left hip joint: PLAN: 1. S/P open reduction internal fixation left proximal femur with revision left total replacement both components POD #1 2. Continue Pain Medications: Tylenol and oxycodone 3. DVT Prophylaxis: Recommend Eliquis postoperatively for DVT prophylaxis due to patient's weightbearing restrictions and concerns for limited activity. 4. PT/OT: Patient will be partial weightbearing 50% for 6 weeks postoperatively with no abduction for 6 weeks. Strict posterior hip dislocation precautions for 6 weeks. 5. H & H: 8.2/25.0, asymptomatic. Acute on chronic anemia. Postoperative ane rea secondary to acute blood loss from surgery without any intra operative complications. Patient did require 1 unit of packed red blood cells postoperatively. 6. Encouraged Incentive Spirometry 7. 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 Continue with pillow to offload this area. 8. Continue postoperative medical management per medicine: Patient did require straight cath overnight. Continue to monitor. 9. Disposition: Patient will require appropriate placement for safety so he can appropriately rehab. Patient has significant restrictions. He had couple falls postoperatively after his initial surgery earlier this week when he went home. Case management will be involved with appropriate placement with discussion with family. Patient will require 2-week follow-up with [facility] for removal of sutures and x-rays.
--- NOTE | 2021-09-10 09:25 | CASEMGMT ---
Addendum entered by Jasmina Han 09/10/21 11:28: Social Work SW spoke w/Yuki again from TCU, precert has been waived, but pt does need an OT evaluation prior to discharge. OT plans to see pt today. LOVELY Key Addendum entered by Jasmina Han 09/10/21 10:07: Social Work Daughter Elizabeth here, SW spoke w/her in the room. SW confirmed w/her that the plan will be for pt to go to TCU at discharge. Yuki in TCU aware and starting precert. LOVELY Key Original Note: Social Work SW met w/pt in room to review prior level of function and anticipated discharge. PCP: David Rios listed, pt states he cannot remember his physician's name as it just changed recently. Specialists: [facility] Insurance: [employer] Medicare Pharmacy: [facility] [place] LW/POA: Pt states is planning to change it, at present he has daughter in law Lorelei listed, wants to include his daughter Elizabeth on the document as well. Prior living arrangements/level of function: Pt lives home in one story ranch with a basement, 2 steps into the front door. Pt lives with his , as per pt they help one another out with ADL's. Prior to pt's first fall, he was using a cane for ambulation. Pt had surgery on the 4th initially and has been using a rolling walker since then. Pt's daughter Elizabeth lives nearby and stops in every morning to help pt and . DME/SNF/HHC: Pt states has had outpt PT [facility], (likely [facility]). Pt has not been to rehab in the past. Pt has cane, walker, shower chair, grab bars. SW spoke w/pt in regard to discharge plan. SW provided list of custodial facilities to pt, that takes pt's insurance, complete with quality and resource use data. Pt states he and his family spoke about him staying here. SW called, there is bed availability in TCU, SW let pt know. He would like SW to check in w/his as well. In talking about pt's , he became tearful. SW offered support, offered to call for pt. SW called , daughter answered. SW explained was in the room speaking w/pt about discharge plan and he had said he wants to go to TCU. She asked to speak w/SW when she comes to visit, she states she will be here shortly. SW asked her to ask for SW when she gets here. SW spoke w/Yuki, precert is not waived anymore for [employer], so she will need to start precert. SW will confirm w/daughter TCU is the plan when she gets here. LOVELY Key
[2021-09-10] MEDS: Multivitamins,Therapeutic Tablet 1 TABLET PO (09:46)
[2021-09-10] MEDS: APIXABAN 2.5 MG TABLET PO (09:47)
[2021-09-10] MEDS: Famotidine 20 MG Tablet PO (09:47)
[2021-09-10] MEDS: Senna/Docusate Sodium 1 Tablet 2 TABLET PO (09:47)
[2021-09-10] MEDS: Aspirin 325 MG Tablet PO (09:48)
[2021-09-10] MEDS: Pentoxifylline 400 MG Tablet PO (09:49)
[2021-09-10] MEDS: Ensure Surgery 237 ML LIQUID PO ×2 (09:54→12:26)
[2021-09-10] MEDS: Lactated Ringers 1,000 ML 50 ML IV (12:26)
--- NOTE | 2021-09-10 13:23 | PCM.DC.SUM ---
Providers Date of Admission: 09/08/21 Primary Care Physician: David Rios MD Consultations 09/08/21 14:14 Consult: Orthopedics Routine Consulting Provider: Fitz Ashford Reason for Consult: L Hip Fracture EMERGENT Consult: No MD Notified: Yes Date Notified: 09/08/21 Time Notified: 15:25 Method of Notification: Verbal Reason For Visit: INTERTROCHANTERIC FRACUTRE Diagnosis Discharge Diagnosis (1) Periprosthetic fracture around internal prosthetic left hip joint: Status: Acute Code(s): M97.02XA - Periprosthetic fracture around internal prosthetic left hip joint, initial encounter Medications at Discharge Home Medications amlodipine 10 mg PO DAILY 06/23/13 pentoxifylline 400 mg PO BID 06/23/13 rosuvastatin 20 mg PO QHS 06/23/13 metoprolol tartrate 100 mg-hydrochlorothiazide 25 mg tablet 1 tab PO DAILY 02/24/20 multivitamin 1 tab PO DAILY 02/24/20 omega-3 fatty acids-fish oil 360 mg-1,200 mg capsule 1 cap PO DAILY 02/24/20 ramipril 10 mg capsule 10 mg PO DAILY cap 02/24/20 furosemide 20 mg tablet 20 mg PO DAILY PRN PRN tab 07/19/21 famotidine 20 mg PO DAILY 09/08/21 ferrous sulfate [FeroSul] 325 mg PO BID 09/08/21 folic acid 1 mg PO DAILY 09/08/21 sennosides [Senokot] 8.6 mg PO BID PRN 09/08/21 tramadol 50 mg PO Q6H PRN PRN 09/08/21 apixaban [Eliquis] 2.5 mg PO BID #56 tab 09/10/21 aspirin 325 mg PO BID #0 tab 09/10/21 doxycycline monohydrate 100 mg PO BID #28 cap 09/10/21 Hospital Course Operations total hip replacement and - (ORIF of proximal left femoral fracture) Procedures None Summary of Care Provided Minutes Spent on Discharge: 45 Hospital Course: Patient is an 86-year-old male with a past medical history as outlined who was admitted through the ED on 09/08/2021 from home where he had sustained a mechanical fall after he lost his balance. He fell directly on his newly operated left hip. He had been discharged on the Friday before admission from [facility] after having had a left hip replacement done. Family had had difficulty with him and mobility at home since he had been discharged. Left femoral x-ray showed an acute fracture to the left hip arthroplasty femoral metallic components with possible extension into the intertrochanteric region. He was therefore admitted and managed for acute periprosthetic chills s/p left hip total hemiarthroplasty. Orthopedic surgery was consulted and he had revision of the left hip arthroplasty and also had open reduction and internal fixation of left proximal femoral fracture. Hospital course was complicated by dysphagia and speech therapy was consulted. Speech therapy evaluated patient and recommended regular textures and thin liquids. He was also noted to have ARCHIE which resolved with hydration. Patient remained stable and was discharged to the transitional care unit on 09/10/2021. Per orthopedics, he was to continue with p.o. 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 He was also discharged on p.o. Eliquis for DVT prophylaxis. He is to follow-up with his PCP as well as orthopedic surgery. Of note, patient was on aspirin 325 mg twice daily Patient seen and examined. He had no active complaints and felt well. Review of systems otherwise negative. Labs and vitals reviewed. Home medication reviewed and reconciled. Of note, patient was on aspirin 325 mg twice daily for thromboprophylaxis for A. fib. Since patient was discharged on Eliquis 2.5 mg twice daily for 28 days for DVT prophylaxis in light of hip fracture, plan is for patient to hold off on taking aspirin 325 mg twice daily for the duration he is on Eliquis due to increased bleeding risk. He is to resume aspirin 325 mg twice daily after he is done with a 28-day course of Eliquis. Physical Exam Const alert, oriented x3 and no apparent distress General Appearance: cooperative, comfortable and well kempt Orientation / Consciousness: awake, oriented to person and oriented to place Exam Limitations: no limitations HEENT normocephalic, head/scalp atraumatic, hearing grossly normal bilaterally and moist oral mucous membranes Eyes PERRL, EOMs intact bilaterally and conjunctivae normal Neck no lymphadenopathy and supple Resp normal respiratory effort, no retractions, no use of accessory muscles and clear to auscultation bilaterally Cardio regular rate, regular rhythm, S1 normal heart sound, S2 normal heart sound and no murmurs GI normal to inspection, nondistended, normoactive bowel sounds, soft to palpation and non-tender Extremity normal to inspection and no clubbing, cyanosis or edema Skin no rashes or lesions noted Neuro oriented x3, CN's II-XII intact bilaterally and moves all extremities Sensorium / Orientation: awake and alert Psych affect normal Weight / BMI Weight Weight: 172 lb 6.424 oz Body Mass Index (BMI) 27.6 ABG / Lab / Microbiology Data Result Diagrams: 09/10/21 05:25 09/10/21 05:25 Laboratory: Laboratory Results - last 24 hr 09/09/21 04:45: Crossmatch See Detail 09/10/21 05:25: WBC 8.0, RBC 2.81 L, Hgb 8.2 L, Hct 25.0 L, MCV 89.0, MCH 29.2, MCHC 32.8, RDW Std Deviation 49.0 H, RDW Coeff of Denise 15.4 H, Plt Count 199, MPV 10.2 09/10/21 05:25: Sodium 138, Potassium 3.7, Chloride 103, Carbon Dioxide 29.0, Anion Gap 6, BUN 45 H, Creatinine 0.96, Estim Creat Clear Calc 52.60, Est GFR (MDRD) Af Amer 96, Est GFR (MDRD) Non-Af 79, BUN/Creatinine Ratio 47.0 H, Glucose 101, Calcium 7.8 L Microbiology: Microbiology 09/08/21 19:00 Nasal Secretion SARS-CoV-2 Antigen (Rapid) - Final D/C Instructions Discharge Diet: Low fat / Low cholesterol Discharge Activity: Return to Normal Activity Weight Bearing Status: Weight bearing as tolerated Lifting Restrictions: partial weight bearing x 6 weeks postoperatively with no abduction x 6wks. Call your doctor if your incision/area has: Continuous Slow Oozing, Sudden Increased Bleeding, Increased Pain/ Swelling, Increased Redness, Foul Smelling Discharge and Swelling at the incision site Call your doctor if you observe: Fever of 101 or Higher, Shortness of breath, Increased palpitations (irregular heartbeat) and Uncontrolled pain Meaningful Use Info Meaningful Use Diagnoses (Choose all that apply): None applicable Discharge Plan Admission Admit Date/Time: 09/08/21 12:45 Primary Reason for Your Visit: mechanical fall, periprosthetic hip fracture Attending Provider: Anastacia Jacobs Primary Care Provider: David Rios Consulting Providers: Fitz Ashford Instructions Patient Instructions: Fx Hip Surg Dc Discharge Orders/Prescriptions Prescriptions: New Eliquis 2.5 mg Tablet 2.5 mg PO BID Qty: 56 RF: 0 Continued metoprolol ta-hydrochlorothiaz 100-25 mg tablet 1 tab PO DAILY RF: 0 omega-3 fatty acids-fish oil [Fish Oil] 360-1,200 mg capsule 1 cap PO DAILY RF: 0 multivitamin Tablet 1 tab PO DAILY RF: 0 furosemide [Lasix] 20 mg tablet 20 mg PO DAILY PRN PRN (Reason: swelling) RF: 0 pentoxifylline 400 MG tablet 400 mg PO BID RF: 0 amlodipine 10 MG tablet 10 mg PO DAILY RF: 0 rosuvastatin 20 MG tablet 20 mg PO QHS RF: 0 ramipril 10 mg capsule 10 mg PO DAILY RF: 0 tramadol 50 mg tablet 50 mg PO Q6H PRN PRN (Reason: Pain) RF: 0 famotidine 20 mg tablet 20 mg PO DAILY RF: 0 sennosides [Senokot] 8.6 mg Tablet 8.6 mg PO BID PRN (Reason: Constipation) RF: 0 ferrous sulfate [FeroSul] 325 mg (65 mg iron) tablet 325 mg PO BID RF: 0 folic acid 1 mg tablet 1 mg PO DAILY RF: 0 aspirin 325 mg tablet 325 mg PO BID Qty: 0 RF: 0 doxycycline monohydrate 100 mg capsule 100 mg PO BID Qty: 28 RF: 0 Referrals / Follow Up: Fitz Ashford MD [STAFF PHYSICIAN] - Within 1 Week David Rios MD [Primary Care Provider] - Within 2 Weeks Disposition Disposition (needs filled in before D/C Order can be placed): [facility] Facility Charges/Coding Visit Charges Inpatient E&M: 94351 Disch Hosp
--- NOTE | 2021-09-10 13:37 | PCM.TXEXTCAR ---
Diet 09/10/21 10:15 Diet: Cardiac - Heart Healthy Food consistency:: Easy to Chew Liquid Consistency:: Regular/Thin Is pt able to select menu?: Yes Diet Comments: pills in applesauce Routine Orders/Code Status Enema Type: Fleetz Enema Frequency: Daily PRN Suppository Type: Dulcolax 10mg Suppository Frequency: Daily PRN O2 Frequency: PRN Keep PO Greater than or Equal to (%): 90 Wound(s) left hip: Wound Type: Surgical Incision left thigh: Wound Type: BLISTER left heel: Wound Type: Pressure Injury LEFT HIP, ANTERIOR: Wound Type: Surgical Incision LEFT HIP, POSTERIOR: Wound Type: Surgical Incision Therapies Weight Bearing: Partial weight bearing Physical Therapy: Eval and Treat Occupational Therapy: Eval and Treat Speech Therapy: Eval and Treat Problem/Diagnosis (1) Periprosthetic fracture around internal prosthetic left hip joint: Status: Acute Allergies/Procedures Done in Hospital Allergies No Known Drug Allergies Allergy (Verified 09/08/21 10:35) NONE Procedures: None Type of Care/Length of Stay Estimated LOS: Convalescent Care Less Than 30 days Type of Care Needed: Skilled Rehab Potential: Fair Prognosis: Fair Additional Orders/Day of Discharge Day of Discharge: 09/10/21 Dietary and Speech Recommendations Dietitian Recommendations/Changes: Regular diet with consistency as per NUCLEAR PHYSICIST. ONS/extra protein as diet advanced from NPO. TF support if patient is not safe for PO diet--NUCLEAR PHYSICIST eval pending. Consult RD for TF order and management as indicated. Discharge Plan Admission Admit Date/Time: 09/08/21 12:45 Primary Reason for Your Visit: mechanical fall, periprosthetic hip fracture Attending Provider: Anastacia Jacobs Primary Care Provider: David Rios Consulting Providers: Fitz Ashford Instructions Patient Instructions: Fx Hip Surg Dc Additional Instructions / Restrictions: Hold off on aspirin 325 mg twice daily until patient has completed his 28-day course of Eliquis 2.5 mg twice daily for DVT prophylaxis. Resume aspirin 325 mg twice daily after patient has completed his course of Eliquis due to increased bleeding risk. Discharge Orders/Prescriptions Prescriptions: New Eliquis 2.5 mg Tablet 2.5 mg PO BID Qty: 56 RF: 0 Continued metoprolol ta-hydrochlorothiaz 100-25 mg tablet 1 tab PO DAILY RF: 0 omega-3 fatty acids-fish oil [Fish Oil] 360-1,200 mg capsule 1 cap PO DAILY RF: 0 multivitamin Tablet 1 tab PO DAILY RF: 0 furosemide [Lasix] 20 mg tablet 20 mg PO DAILY PRN PRN (Reason: swelling) RF: 0 pentoxifylline 400 MG tablet 400 mg PO BID RF: 0 amlodipine 10 MG tablet 10 mg PO DAILY RF: 0 rosuvastatin 20 MG tablet 20 mg PO QHS RF: 0 ramipril 10 mg capsule 10 mg PO DAILY RF: 0 tramadol 50 mg tablet 50 mg PO Q6H PRN PRN (Reason: Pain) RF: 0 famotidine 20 mg tablet 20 mg PO DAILY RF: 0 sennosides [Senokot] 8.6 mg Tablet 8.6 mg PO BID PRN (Reason: Constipation) RF: 0 ferrous sulfate [FeroSul] 325 mg (65 mg iron) tablet 325 mg PO BID RF: 0 folic acid 1 mg tablet 1 mg PO DAILY RF: 0 aspirin 325 mg tablet 325 mg PO BID Qty: 0 RF: 0 doxycycline monohydrate 100 mg capsule 100 mg PO BID Qty: 28 RF: 0 Referrals / Follow Up: Fitz Ashford MD [STAFF PHYSICIAN] - Within 1 Week David Rios MD [Primary Care Provider] - Within 2 Weeks Disposition Disposition (needs filled in before D/C Order can be placed): [facility]
--- NOTE | 2021-09-10 14:18 | CASEMGMT ---
Social Work Pt is ready to go to TCU today. MARGOTH faxed all discharge paperwork to TCU. SW let bedside RN know pt can go, she will let pt know as he was sleeping when SW was in room. MARGOTH called daughter Elizabeth, let her know pt can go to TCU today. No further needs, pt to TCU today. LOVELY Key
== END 2021-09-10 14:31 | DRG 467 ==
LOC: ED 12:37 → MS3 13:02
PROVIDERS: Anesthesiology; Specialist; Admitting Provider Internal Medicine; Emergency Provider Emergency Medicine; PCP Family Medicine; Visit Provider Student in an Organized Health Care Education/Training Program
PROC: 0SRB02Z Replacement of Left Hip Joint with Metal on Polyethylene Synthetic Substitute, Open Approach (ICD-10-PCS; CPT 27134; principal; 2021-09-09 07:30)
DX: S72.142A Displaced intertrochanteric fracture of left femur, initial encounter for closed fracture (principal); N17.9 Acute kidney failure, unspecified; I48.92 Unspecified atrial flutter; M97.02XA Periprosthetic fracture around internal prosthetic left hip joint, initial encounter; D62 Acute posthemorrhagic anemia; I25.10 Atherosclerotic heart disease of native coronary artery without angina pectoris; I10 Essential (primary) hypertension; I25.82 Chronic total occlusion of coronary artery; I11.9 Hypertensive heart disease without heart failure; I73.9 Peripheral vascular disease, unspecified; I48.91 Unspecified atrial fibrillation; S91.309A Unspecified open wound, unspecified foot, initial encounter; W01.0XXA Fall on same level from slipping, tripping and stumbling without subsequent striking against object, initial encounter; E78.5 Hyperlipidemia, unspecified; K21.9 Gastro-esophageal reflux disease without esophagitis; I25.2 Old myocardial infarction; Z87.891 Personal history of nicotine dependence; Z79.01 Long term (current) use of anticoagulants; Z79.82 Long term (current) use of aspirin; E66.9 Obesity, unspecified; Z68.26 Body mass index [BMI] 26.0-26.9, adult; Z95.1 Presence of aortocoronary bypass graft; Z96.641 Presence of right artificial hip joint; Z96.653 Presence of artificial knee joint, bilateral; Y93.9 Activity, unspecified; Y99.9 Unspecified external cause status; Y92.9 Unspecified place or not applicable; F32.A Depression, unspecified; H91.93 Unspecified hearing loss, bilateral; R13.10 Dysphagia, unspecified; Z20.822 Contact with and (suspected) exposure to COVID-19; R29.6 Repeated falls
CPT/HCPCS: 36415; 73502; 73552; 80048; 80053; 83735; 84100; 85025; 85027; 85610; 85730; 86850; 86900; 86901; 86920; 87426; 92610; 93005; 97110; 97116; 97162; 97165; 99251; 99285; C1776; J7030; J7040; J7120; P9040; A4216; G0463

== ENCOUNTER 2021-09-10 14:39 | Inpatient (IN) | payer MEDICARE, SELFPAY ==
[2021-09-10 14:45] VITALS: BP 128/66; PULSE 101; RESP 18; RESP 20; TEMP 36.8; O2SAT 100; BMI 27.6
[2021-09-10 17:32] VITALS: BP 128/66; PULSE 101
[2021-09-10] MEDS: Pentoxifylline 400 MG Tablet PO (17:32)
[2021-09-10] MEDS: APIXABAN 2.5 MG TABLET PO (17:32)
[2021-09-10] MEDS: Doxycycline 100 MG CAPSULE PO (17:32)
[2021-09-10] MEDS: Ferrous Sulfate 325 MG Tablet PO (17:32)
[2021-09-10] MEDS: Metoprolol Tartrate 100 MG Tablet PO (17:32)
--- NOTE | 2021-09-10 20:08 | PCM.HP.STD ---
HPI - General General Date of Admission: 09/10/21 HPI Narrative 08/13/2021 Echo Normal left ventricle size. Severe concentric left ventricular hypertrophy. Left ventricular systolic function normal. EF 60%. CARIDAD WARD, is a 86 Male who presents to [facility] Emergency Department with fall, left hip injury. Lost balance, fell on left hip, unable to bear weight. Discharged from [facility] 1 day prior after left total hip replacement. X-ray showed left periproshetic hip fracture. 09/08/2021 Admit to Hospital. Prepare for surgery. PT/OT for debility, planning SNF. Monitor hemoglobin 9.2. IV Fluids, hold ACEI, hold furosemide for acute kidney injury. ST for dysphagia. 09/09/2021 Dr. Ashford performed open reduction internal fixation left proximal femur with revision left total hip replaced both components. Eliquis 2.5mg bid for atrial fibrillation, DVT prophylaxis. 09/10/2021 Admit to TCU with debility, here for rehabilitation, strengthening, prior to discharge home with . [facility] Medical History Arthritis Atherosclerosis of coronary artery of [place] heart without angina pectoris Chronic atrial flutter Depression Essential hypertension Hearing loss, left Hearing loss, right History of VA (myocardial infarction) (1983) Hyperlipidemia Left ventricular hypertrophy New onset atrial flutter (02/08/20) Obesity Osteoarthritis Osteoporosis Venous insufficiency of both lower extremities Home Medications amlodipine 10 mg PO DAILY 06/23/13 [History Last Taken 08/13/21] pentoxifylline 400 mg PO BID 06/23/13 [History Last Taken 08/13/21] rosuvastatin 20 mg PO QHS 06/23/13 [History Last Taken Unknown] metoprolol tartrate 100 mg-hydrochlorothiazide 25 mg tablet 1 tab PO DAILY 02/24/20 [History Last Taken 08/13/21] multivitamin 1 tab PO DAILY 02/24/20 [History Last Taken Unknown] omega-3 fatty acids-fish oil 360 mg-1,200 mg capsule 1 cap PO DAILY 02/24/20 [History Last Taken Unknown] ramipril 10 mg capsule 10 mg PO DAILY cap 02/24/20 [History Last Taken 08/13/21] furosemide 20 mg tablet 20 mg PO DAILY PRN PRN tab 07/19/21 [History Last Taken Unknown] famotidine 20 mg PO DAILY 09/08/21 [History Last Taken Unknown] ferrous sulfate [FeroSul] 325 mg PO BID 09/08/21 [History Last Taken Unknown] folic acid 1 mg PO DAILY 09/08/21 [History Last Taken Unknown] sennosides [Senokot] 8.6 mg PO BID PRN 09/08/21 [History Last Taken Unknown] tramadol 50 mg PO Q6H PRN PRN 09/08/21 [History Last Taken Unknown] apixaban [Eliquis] 2.5 mg PO BID 09/10/21 [History Last Taken Unknown] aspirin 325 mg PO BID #0 tab 09/10/21 [Rx Last Taken 08/13/21] doxycycline monohydrate 100 mg PO BID #28 cap 09/10/21 [Rx Last Taken Unknown] Allergy/AdvReac Type Severity Reaction Status Date / Time No Known Drug Allergies Allergy NONE Verified 09/08/21 10:35 Family History Mother CAD (coronary artery disease) Sister Cancer lung Surgical History H/O coronary artery bypass surgery (1983) History of appendectomy History of carpal tunnel release History of left heart catheterization (08/13/21) History of right hip replacement History of surgical removal of skin lesion History of total bilateral knee replacement History of total left hip replacement Social History (Updated 09/10/21 @ 20:[address] Pipe Damon MD) household members: spouse Smoking Status: Former smoker alcohol intake: never substance use type: does not use ROS Constitutional Constitutional: Denies chills, fever(s) or weight gain ENT HEENT: Denies headache(s), nasal congestion or nasal discharge Cardiovascular Cardiovascular: Denies chest pain or palpitations Respiratory/Chest Respiratory/Chest: Denies cough, excessive phlegm production or shortness of breath with exertion Gastrointestinal Gastrointestinal: Denies abdominal pain, nausea or vomiting Genitourinary Genitourinary: Denies dysuria Musculoskeletal Musculoskeletal: Denies joint pain or joint swelling Integumentary Integumentary: Denies rash or wounds Neurologic Neurologic: Denies focal weakness, numbness or tingling Psychiatric Psychiatric: Denies anxiety, auditory hallucinations, depression, homicidal ideation or suicidal ideation Vital Signs Vital Signs Vital Signs: 09/10/21 14:45 09/10/21 17:32 Temperature 98.2 F Temperature Source Temporal Pulse Rate 101 H 101 H Pulse Rhythm Irregular Pulse Strength Normal (2+) Respiratory Rate 20 H Respiratory Effort Normal Non-Labored Respiratory Depth Normal Respiratory Pattern Normal Blood Pressure 128/66 H 128/66 H Blood Pressure Mean 86 Pulse Ox 100 Oxygen Delivery Method Room Air Weight Weight: 79.889 kg Body Mass Index (BMI) 27.6 Physical Exam Const alert and oriented x3 General Appearance: cooperative HEENT normocephalic Eyes PERRL and EOMs intact bilaterally Neck supple, no JVD and no carotid bruits Resp normal respiratory effort, normal air movement and clear to auscultation bilaterally Cardio regular rate and regular rhythm GI normal to inspection, nondistended, normoactive bowel sounds, non-tender and non-distended Extremity normal capillary refill General Extremity: Negative for edema Skin no rashes or lesions noted General Skin Exam: no breakdown Psych affect normal Appearance: appropriate Assessment & Plan Assessment/Plan (1) Debility: (2) Periprosthetic fracture around internal prosthetic left hip joint: (3) Anemia: (4) ARCHIE (acute kidney injury): (5) Hypertension: (6) Peripheral arterial occlusive disease: (7) Hyperlipidemia: (8) Atrial fibrillation: (9) Benign prostate hyperplasia: (10) Gastroesophageal reflux disease: (11) Coronary artery disease: PLAN: 86 year old male with below past medical history hospitalized for left periprosthetic hip fracture, underwent ORIF left proximal femur with revision left total hip, replaced both components 09/09/[address] Ashford, complicated by acute kidney injury, postoperative anemia, admitted to TCU with debility, here for rehabilitation, strengthening, prior to discharge home with . Debility - PT/OT. Dysphagia - ST. Pain - Tylenol 1000mg q8h, Tramadol 50mg q6h prn pain (1-5), Oxycodone 2.5mg q4h prn pain (6-10). Bowel - Miralax 17gm daily, senna/colace 2 tablets bid, Dulcolax 10mg daily prn. Adult immunization - Administer prevnar 13, pneumovax 23, fluzone, covid19 vaccine as appropriate. DVT prophylaxis - Eliquis 2.5mg bid thru 10/08/2021. Atrial Fibrillation - Metoprolol 100mg bid, Eliquis 2.5mg bid thru 10/08/2021, then Aspirin 325mg bid. Hyperlipidemia - Atorvastatin 40mg qhs. ID - Doxycycline 100mg bid thru 09/24/2021. Edema - Furosemide 20mg daily prn. Iron deficiency anemia - Ferrous sulfate 325mg bid. Folate deficiency - Folic acid 1mg daily. GERD - Famotidine 20mg daily. Hypertension - Metoprolol 100mg bid, Ramipril 10mg daily, HCTZ 25mg daily. PAOD - Trental 400mg bid, Eliquis 2.5mg bid thru 10/08/2021, then aspirin 325mg bid. Coronary artery disease - Metoprolol 100mg bid, Ramipril 10mg daily, Eliquis 2.5mg bid thru 10/08/2021, then aspirin 325mg bid.
[2021-09-10] MEDS: Atorvastatin Calcium 40 MG Tablet PO (20:15)
[2021-09-10] MEDS: traMADol 50 MG Tablet PO (20:15)
[2021-09-10] MEDS: 0.9% Saline Lock 10 ML Syringe IV (20:17)
--- NOTE | 2021-09-10 20:40 | PCA ---
patient did not wish to get washed up but agreed to get brief changed. INTERIOR DESIGN INSTRUCTOR helped patient into bed and washed susan area with bath wipe and changed brief while in bed.
[2021-09-10] MEDS: Acetaminophen 500 MG Tablet 1000 MG PO (20:57)
[2021-09-10] MEDS: Senna/Docusate Sodium 1 Tablet 2 TABLET PO (20:58)
[2021-09-11] MEDS: Polyethylene Glycol 3350 17 GM PACKET PO (04:55)
[2021-09-11] MEDS: Senna/Docusate Sodium 1 Tablet 2 TABLET PO ×2 (04:55→17:02)
[2021-09-11] MEDS: hydroCHLOROthiazide 25 MG Tablet PO (04:57)
[2021-09-11 04:58] VITALS: BP 113/56; PULSE 70
[2021-09-11] MEDS: Folic Acid 1 MG Tablet PO (04:58)
[2021-09-11] MEDS: APIXABAN 2.5 MG TABLET PO ×2 (04:58→17:02)
[2021-09-11] MEDS: Famotidine 20 MG Tablet PO (04:58)
[2021-09-11] MEDS: Ramipril 10 MG Capsule PO (04:58)
[2021-09-11] MEDS: Metoprolol Tartrate 100 MG Tablet PO ×2 (04:58→17:02)
[2021-09-11] MEDS: Pentoxifylline 400 MG Tablet PO ×2 (04:59→17:02)
[2021-09-11] MEDS: Acetaminophen 500 MG Tablet 1000 MG PO ×3 (04:59→20:54)
[2021-09-11] MEDS: amLODIPine 10 MG Tablet PO (04:59)
[2021-09-11] MEDS: Doxycycline 100 MG CAPSULE PO ×2 (04:59→17:02)
[2021-09-11 05:00] VITALS: BP 113/57; PULSE 70
[2021-09-11] MEDS: traMADol 50 MG Tablet PO (05:07)
[2021-09-11 05:53] LABS: Absolute Neutrophil Count 7.1 X10^3/uL (2.0-7.7); Basophil# 0.01 X10^3/uL; Basophil% 0.1 % (0-1); Eosinophil# 0.65 X10^3/uL; Eosinophils% 6.4 % (0-5); Hematocrit 26.4 % (40-54); Hemoglobin 8.5 g/dL (13.0-16.5); Lymphocyte % 14.8 % (19-41); Mean Corp Hgb Conc 32.2 g/dL (32-36); Mean Corpuscular Hgb 29.1 pg (27.0-32.0); Mean Corpuscular Volume 90.4 fL (80-94); Mean Platelet Vol. 9.9 fl (6.2-12.0); Monocyte# 0.82 X10^3/uL; Monocyte% 8.1 % (0-10); NRBC Flagged by Analyzer 0 % (0-5); Neutrophil # 7.08 X10^3/uL (2.7-7.7); Neutrophil % 69.6 % (47-70); Platelet Count 278 K/mm3 (150-450); RBC Distribution Width CV 15.9 % (11.6-14.6); RBC Distribution Width SD 51.2 fl (35.1-43.9); Red Blood Count 2.92 M/mm3 (4.6-6.2); White Blood Count 10.2 K/mm3 (4.4-11.0)
[2021-09-11 06:22] LABS: Anion Gap 5 (5-15); BUN 45 mg/dL (7-18); BUN/Creat Ratio 46.2 RATIO (10-20); Calcium,Total 8.3 mg/dL (8.5-10.1); Chloride 103 mmol/L (98-107); Creatinine, Serum 0.97 mg/dL (0.70-1.30); EST Glomerular Filtration Rate 78 mL/min (>60); Est Glom Filt Rate - Afr Amer 94 mL/min (>60); Estimated Creatinine Clearance 52.05 ml/min; Glucose 115 mg/dL (74-106); Potassium 3.8 mmol/L (3.5-5.1); Sodium Level 139 mmol/L (136-145)
[2021-09-11] MEDS: 0.9% Saline Lock 10 ML Syringe IV (09:59)
--- NOTE | 2021-09-11 11:03 | PHA.CONS1_ITS ---
Progress Note - Pharmacy Subjective: TCU Admission Objective: Allergies No Known Drug Allergies Allergy (Verified 09/08/21 10:35) NONE Current Medications Generic Name Dose Route Start Last Admin Trade Name Ralph PRN Reason Stop Dose Admin Acetaminophen 1,000 mg 09/10/21 22:00 09/11/21 04:59 Acetaminophen 500 Mg Tablet PO 1,000 mg Q8 FAITH Administration Amlodipine Besylate 10 mg 09/11/21 06:00 09/11/21 04:59 Amlodipine 10 Mg Tablet PO 10 mg DAILY FAITH Administration Apixaban 2.5 mg 09/10/21 18:00 09/11/21 04:58 Apixaban 2.5 Mg Tablet PO 10/08/21 18:01 2.5 mg BID FAITH Administration Aspirin 325 mg 10/09/21 06:00 Aspirin 325 Mg Tablet PO BID [facility] Atorvastatin Calcium 40 mg 09/10/21 22:00 09/10/21 20:15 Atorvastatin Calcium 40 Mg Tablet PO 40 mg QHS [facility] Administration Bisacodyl 10 mg 09/10/21 15:20 Bisacodyl 10 Mg Suppository RC DAILY PRN Constipation Doxycycline Monohydrate 100 mg 09/10/21 18:00 09/11/21 04:59 Doxycycline 100 Mg Capsule PO 09/24/21 06:01 100 mg BID [facility] Administration Famotidine 20 mg 09/11/21 06:00 09/11/21 04:58 Famotidine 20 Mg Tablet PO 20 mg DAILY [facility] Administration Ferrous Sulfate 325 mg 09/10/21 17:00 09/10/21 17:32 Ferrous Sulfate 325 Mg Tablet PO 325 mg 1200,1700 [facility] Administration Folic Acid 1 mg 09/11/21 06:00 09/11/21 04:58 Folic Acid 1 Mg Tablet PO 1 mg DAILY [facility] Administration Furosemide 20 mg 09/10/21 14:59 Furosemide 20 Mg Tablet PO DAILY PRN PRN Swelling Hydrochlorothiazide 25 mg 09/11/21 06:00 09/11/21 04:57 Hydrochlorothiazide 25 Mg Tablet PO 25 mg DAILY [facility] Administration Metoprolol Tartrate 100 mg 09/10/21 18:00 09/11/21 04:58 Metoprolol Tartrate 100 Mg Tablet PO 100 mg BID [facility] Administration Oxycodone HCl 2.5 mg 09/10/21 20:23 Oxycodone 5 Mg Tablet PO Q4H PRN PRN Pain Score 6-10 Pentoxifylline 400 mg 09/10/21 18:00 09/11/21 04:59 Pentoxifylline 400 Mg Tablet PO 400 mg BID FAITH Administration Polyethylene Glycol 17 gm 09/11/21 06:00 09/11/21 04:55 Polyethylene Glycol 3350 17 Gm Packet PO 17 gm DAILY FAITH Administration Ramipril 10 mg 09/11/21 06:00 09/11/21 04:58 Ramipril 10 Mg Capsule PO 10 mg DAILY FAITH Administration Senna/Docusate Sodium 2 tablet 09/10/21 20:30 09/11/21 04:55 Senna/Docusate Sodium 1 Tablet PO 2 tablet BID FAITH Administration Sodium Chloride 10 - 40 ml 09/10/21 15:58 09/11/21 09:59 0.9% Saline Lock 10 Ml Syringe IV 10 ml UD PRN Administration SALINE FLUSH Tramadol HCl 50 mg 09/10/21 20:24 09/11/21 05:07 Tramadol 50 Mg Tablet PO 50 mg Q6H PRN PRN Administration Pain Score 1-5 Tuberculin PPD 0.1 ml 09/18/21 10:00 Tuberculin,Purif.Prot.Deriv. 50 Tu/Ml Vial ID 09/18/21 10:01 X1 ONE Problem List (Last Reviewed 09/10/21 @ 20:[address] 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 (Acute) Vital Signs Temp Pulse Resp BP Pulse Ox 98.2 F 70 20 H 113/57 L 100 09/10/21 14:45 09/11/21 05:00 09/10/21 14:45 09/11/21 05:00 09/10/21 14:45 Oxygen Delivery Method Room Air Weight: 79.889 kg Body Mass Index (BMI) 27.6 Sodium 139 mmol/L (136-145) 09/11/21 05:13 Potassium 3.8 mmol/L (3.5-5.1) 09/11/21 05:13 Chloride 103 mmol/L (98-107) 09/11/21 05:13 Carbon Dioxide 31.0 mmol/L (21.0-32.0) 09/11/21 05:13 Anion Gap 5 (5-15) 09/11/21 05:13 BUN 45 mg/dL (7-18) H 09/11/21 05:13 Creatinine 0.97 mg/dL (0.70-1.30) 09/11/21 05:13 Est GFR (MDRD) Af Amer 94 mL/min (>60) 09/11/21 05:13 Est GFR (MDRD) Non-Af 78 mL/min (>60) 09/11/21 05:13 BUN/Creatinine Ratio 46.2 RATIO (10-20) H 09/11/21 05:13 Glucose 115 mg/dL (74-106) H 09/11/21 05:13 Assessment/Plan: 1. Pain: acetaminophen 1000mg PO Q8, tramadol 50mg PO Q6H PRN pain 1-5/10 and oxycodone 2.5mg PO Q4H PRN pain 6-10/10. Please continue to monitor for increased pain, PRN usage, renal function, constipation and respiratory depression. 2. DVT prophylaxis: apixaban 2.5mg PO BID thru 10/08/21 then aspirin 325mg PO BID starting 10/09/21. Please continue to monitor for S/S of bleeding/DVT and hemoglobin (last 8.5g/dL). 3. Post-op ID: doxycycline 100mg PO BID thru 09/24/21. Please continue to monitor for S/S of infection and diarrhea. 4. CAD/atrial fibrillation/hypertension: metoprolol tartrate 100mg PO BID, apixaban 2.5mg PO BID thru 10/08/21 then aspirin 325mg PO BID starting 10/09/21, ramipril 10mg PO daily, hydrochlorothiazide 25mg PO daily. Please continue to monitor for BP (last 113/57), HR (last 70), S/S of bleeding, hemoglobin, potassium (last 3.8mmol/L), sodium (last 139mmol/L), renal function and cough. 5. Edema: furosemide 20mg PO daily PRN edema. Please continue to monitor for S/S of edema, electrolytes and renal function. 6. Hyperlipidemia: atorvastatin 40mg PO QHS. Please continue to monitor lipid panel (last 02/16/21) and muscle pain. 7. PAOD: pentoxifylline 400mg PO BID, apixaban 2.5mg PO BID thru 10/08/21 then aspirin 325mg PO BID starting 10/09/21. Please continue to monitor for GI side effects, dry mouth, constipation and S/S of bleeding. 8. GERD: famotidine 20mg PO daily. Please continue to monitor for S/S of GERD and renal function. 9. Iron deficiency anemia: ferrous sulfate 325mg PO lunch and dinner. Please continue to monitor hemoglobin, constipation and dark stools. 10. Folate deficiency: folic acid 1mg PO DAILY. Please continue to monitor. Psychotropic Medications: None Unnecessary Medications: None Bowel Regimen: Miralax 17gm PO daily, senna/docusate 2T PO BID and bisacodyl 10mg RC daily PRN constipation. Please continue to monitor for constipation and PRN usage. Date of Note:: 09/11/21
[2021-09-11] MEDS: Tuberculin,Purif.prot.deriv. 50 TU/ML Vial 0.1 ML ID (11:27)
[2021-09-11] MEDS: Ferrous Sulfate 325 MG Tablet PO ×2 (11:27→17:02)
--- NOTE | 2021-09-11 12:37 | NURSING ---
Resident and spouse, Natalee, notified of staff member testing positive for COVID.
[2021-09-11 14:11] VITALS: BP 107/48; PULSE 72; RESP 18; TEMP 37.2; O2SAT 95
--- NOTE | 2021-09-11 14:54 | CASEMGMT ---
Social Work Met with patient for initial assessment. Discussed code status and MOLST form. Pt confirms DNR-CCA, no intubation. MOLST form communicated to , placed in chart. Explained [facility] insurance with [employer] 09/12 and continued stay is not guaranteed with each review. The goal is for pt to return home with . However, the pt was helping his some home tasks. The dtr has been assisting while pt is in hospital. Pt would like to complete new advanced directives naming dtr as HCPOA, once consulting with and dtr. SW offered to assist in completing documents during stay. Pt appreciative. SW to follow for discharge planning needs. Vicki Andrew, SALES AND CATERING COORDINATOR RETAIL LEASING AGENT
[2021-09-11 17:02] VITALS: PULSE 72
--- NOTE | 2021-09-11 17:06 | NURSING ---
pt with increased confusion this evening, reoriented well. pt able to state that he is a [facility], knows he broke hip and needed revision. Explained to pt he just had surgery on 09/09 and anesthesic could be affecting his memory. encouraged pt to drink more fluids. pt asked for a sprite and more ice water. pleasant and cooperative. sitting up in chair. pressure sensitive alarm in place on seat of chair. call light in reach.
--- NOTE | 2021-09-11 20:48 | NURSING ---
Presents in recliner, television on. Declined assist to bed x3 attempts despite education/encouragement to promote skin integrity. Patient states I never sleep in bed at home, I always sleep in my chair Presents alert and oriented to person/place/time, disorganized thinking observed at times. Forgetful. Denies pain. Surgical dressings x2 remain in place to left hip per order, old drainage dark red in color remains to dressings, no active drainage or signs of infection observed at this time. Denies requests. Call light in reach.
[2021-09-11] MEDS: Atorvastatin Calcium 40 MG Tablet PO (20:54)
[2021-09-11 20:58] VITALS: PULSE 64; RESP 16; O2SAT 96
[2021-09-12] MEDS: 0.9% Saline Lock 10 ML Syringe IV (04:48)
[2021-09-12] MEDS: Ramipril 10 MG Capsule PO (04:52)
[2021-09-12] MEDS: Polyethylene Glycol 3350 17 GM PACKET PO (04:52)
[2021-09-12] MEDS: Famotidine 20 MG Tablet PO (04:52)
[2021-09-12 04:53] VITALS: BP 119/48; PULSE 70
[2021-09-12] MEDS: Senna/Docusate Sodium 1 Tablet 2 TABLET PO ×2 (04:53→16:48)
[2021-09-12] MEDS: Metoprolol Tartrate 100 MG Tablet PO ×2 (04:53→16:47)
[2021-09-12] MEDS: Acetaminophen 500 MG Tablet 1000 MG PO ×3 (04:53→20:49)
[2021-09-12] MEDS: Doxycycline 100 MG CAPSULE PO ×2 (04:53→16:48)
[2021-09-12] MEDS: Folic Acid 1 MG Tablet PO (04:53)
[2021-09-12] MEDS: Pentoxifylline 400 MG Tablet PO ×2 (04:53→16:48)
[2021-09-12] MEDS: APIXABAN 2.5 MG TABLET PO ×2 (04:53→16:47)
[2021-09-12] MEDS: amLODIPine 10 MG Tablet PO (08:03)
[2021-09-12] MEDS: hydroCHLOROthiazide 25 MG Tablet PO (08:03)
[2021-09-12] MEDS: Ferrous Sulfate 325 MG Tablet PO ×2 (11:25→16:47)
[2021-09-12] MEDS: traMADol 50 MG Tablet PO (11:25)
[2021-09-12 15:34] VITALS: BP 102/48; PULSE 60; RESP 16; TEMP 36.6; O2SAT 90
[2021-09-12 16:47] VITALS: PULSE 60
--- NOTE | 2021-09-12 17:01 | CHAPLAIN ---
Type of Pastoral Visit _x__ Initial Visit ___ Follow-up Visit ___ On-call Visit ___ General Patient Visit ___ Spiritual Assessment ___ Family Conference ___ Bereavement ___ Rapid Response ___ Code Blue ___ Other (describe below) Pastoral Care Referral From _x__ Patient ___ Family ___ Nurse ___ Physician ___ Configurator ___ Facial Operator ___ Other (describe below) Sacrament/Intervention _x__ Active listening ___ Anointing ___ Sabianism ___ Bereavement ___ Communion ___ Stacey exploration ___ _x__ Life review _x__ Prayer ___ Reconciliation ___ Sacrament of Sick _x__ Supportive presence ___ Wedding ___ Other (describe below) Pastoral Comments patient is very talkative and gives much life review and perspective on his own health and living; pt has long marriage of 66 years and is concerned for his ; pt has five children and one in particular is extremely helpful; pt ends a long visit with I've never been church but I think I am getting to realize that I should have been/be; prayer is welcomed
[2021-09-12] MEDS: Atorvastatin Calcium 40 MG Tablet PO (20:49)
[2021-09-13] VITALS (8 sets, daily range): BP systolic 80–133; BP diastolic 48–85; PULSE 55–78; RESP 16; TEMP 36.7–38.3; O2SAT 95–96
[2021-09-13] MEDS: APIXABAN 2.5 MG TABLET PO ×2 (05:15→17:35)
[2021-09-13] MEDS: Metoprolol Tartrate 100 MG Tablet PO (05:15)
[2021-09-13] MEDS: Doxycycline 100 MG CAPSULE PO ×2 (05:15→17:35)
[2021-09-13] MEDS: Ramipril 10 MG Capsule PO (05:15)
[2021-09-13] MEDS: Folic Acid 1 MG Tablet PO (05:15)
[2021-09-13] MEDS: Senna/Docusate Sodium 1 Tablet 2 TABLET PO ×2 (05:16→17:35)
[2021-09-13] MEDS: Acetaminophen 500 MG Tablet 1000 MG PO ×3 (05:16→21:24)
[2021-09-13] MEDS: Famotidine 20 MG Tablet PO (05:16)
[2021-09-13] MEDS: Pentoxifylline 400 MG Tablet PO ×2 (05:16→17:35)
--- NOTE | 2021-09-13 05:20 | NURSING ---
ZACARIAS Kenney stated that when trying to flush peripheral IV in patient's arm, that it appeared to bulge. Will discontinue IV at this time.
[2021-09-13] MEDS: hydroCHLOROthiazide 25 MG Tablet PO (08:27)
[2021-09-13] MEDS: amLODIPine 10 MG Tablet PO (08:27)
[2021-09-13] MEDS: Ferrous Sulfate 325 MG Tablet PO ×2 (11:10→17:35)
[2021-09-13] MEDS: 0.9% Normal Saline 1,000 ML 999 ML IV (19:58)
--- NOTE | 2021-09-13 20:26 | NURSING ---
While transferring patient to bedside commode, patient hot to touch. Obtained temporal of 99.5. Oral reading was 101.0. Patient denies any symptoms at this time. Lungs clear/diminished throughout. RN Vanna aware.
[2021-09-13] MEDS: oxyCODONE 5 MG Tablet 2.5 MG PO (21:23)
[2021-09-13] MEDS: Atorvastatin Calcium 40 MG Tablet PO (21:24)
--- NOTE | 2021-09-13 21:27 | NURSING ---
Updated Dr. Damon on fever, orders for CBC, BMP, blood cultures, UA w/ culture, cxray, CT left hip, and zosyn.
--- NOTE | 2021-09-13 21:30 | RAD_ITS ---
STUDY: XR Chest 1 View 09/13/2021 9:19 PM REASON FOR EXAM: Male, 86 years old. FEVER fever COMPARISON: 12.8.21 TECHNIQUE: XR Chest 1 View FINDINGS: There is no demonstrated pleural abnormality. There are multiple median sternotomy wires. Normal heart size. Normal mediastinum. Normal gloria. Prominent appearing increased interstitial lung markings. Normal visualized pulmonary arteries. There is atherosclerotic calcification of the aortic arch with tortuosity. There are diffuse degenerative changes of the visualized thoracic spine. There is degenerative osteoarthritis of the bilateral shoulders. There is no demonstrated abnormality of the visualized soft tissue structures of the upper abdomen. RAD/Chest 1 View (Portable) IMPRESSION: There are no acute findings. Electronically Signed: Reji Moreno MD at 21:47 EST , Service support ,
[2021-09-13] MEDS: 0.9% Saline Lock 10 ML Syringe IV (21:35)
[2021-09-13] MEDS: Piperacil/Tazobactam 3.375 GM/50 ML ML IV (21:35)
[2021-09-13 22:00] LABS: Absolute Lymphocyte Count 1.39 X10^3/uL (0.83-4.51); Basophil# 0.02 X10^3/uL; Basophil% 0.2 % (0-1); Eosinophil# 0.59 X10^3/uL; Eosinophils% 5.9 % (0-5); Hematocrit 24.1 % (40-54); Hemoglobin 7.7 g/dL (13.0-16.5); Lymphocyte # 1.39 X10^3/ul (0.83-4.51); Lymphocyte % 13.9 % (19-41); Mean Corpuscular Hgb 29.1 pg (27.0-32.0); Mean Corpuscular Volume 90.9 fL (80-94); Mean Platelet Vol. 9.2 fl (6.2-12.0); NRBC Flagged by Analyzer 0 % (0-5); Neutrophil # 7.03 X10^3/uL (2.7-7.7); Neutrophil % 70.5 % (47-70); Platelet Count 353 K/mm3 (150-450); RBC Distribution Width CV 16.5 % (11.6-14.6); RBC Distribution Width SD 53.9 fl (35.1-43.9); Red Blood Count 2.65 M/mm3 (4.6-6.2)
[2021-09-13 22:15] LABS: Anion Gap 5 (5-15); BUN 47 mg/dL (7-18); BUN/Creat Ratio 40.5 RATIO (10-20); Calcium,Total 8.3 mg/dL (8.5-10.1); Chloride 104 mmol/L (98-107); Creatinine, Serum 1.16 mg/dL (0.70-1.30); EST Glomerular Filtration Rate 64 mL/min (>60); Est Glom Filt Rate - Afr Amer 77 mL/min (>60); Estimated Creatinine Clearance 43.53 ml/min; Glucose 97 mg/dL (74-106); Sodium Level 139 mmol/L (136-145)
[2021-09-14] VITALS (7 sets, daily range): BP systolic 105–120; BP diastolic 40–59; PULSE 67–92; RESP 16–18; TEMP 36.2–38.2; O2SAT 93–97
--- NOTE | 2021-09-14 01:50 | NURSING ---
While in repositioning patient, Mepilex to left heel changed d/t saturated from coyle area seeping. Noted the black necrotic area that was previously there Friday (09/10/21) is now gone. Patient states that the Pressure area is several years old. Area is mushy around and about 1.5cm deep. Wound Nurse Lili consulted. Marked LLE d/t increase in redness. Yellow colored drainage seeping from left coyle. Cleaned area with Normal Saline, pat dry and applied ABD and wrapped with Kerlix. Surgical Mepilex x2 also saturated with drainage. Removed Mepilex x2, cleaned around x2 incision sites and sutures. X3 ABD secured with tape. Medial incision with 8 sutures noted to be draining steadily with Serosanguineous drainage. Lateral incision has 17 sutures and also draining Serosanguineous drainage.
[2021-09-14 01:56] LABS: Bacteria 0 SEEN /hpf (None Seen); Mucous, Urine 0 SEEN /hpf (<or=2+); Squamous Epithelial Cells - UA 0 SEEN /hpf (0-5); White Blood Cells 0 SEEN /hpf (0-5)
[2021-09-14 02:25] LABS: Color, Urine Yellow (Yellow); Glucose, Dipstick Normal (Normal); Ketone-Dipstick Negative (Negative); Leukocyte Esterase-Dipstick Negative /ul (Negative); Nitrite-Dipstick Negative (Negative); Occult Blood-Urine 50 /ul (Negative); Protein-Dipstick Negative (Negative); Urine Bilirubin Dipstick Negative (Negative); Urine Clarity Clear (Clear); Urine Urobilinogen Normal (Normal)
[2021-09-14 02:39] LABS: Red Blood Cells-Urine 5-10 SEEN /hpf (0-5)
[2021-09-14] MEDS: Piperacil/Tazobactam 3.375 GM/50 ML ML IV ×3 (05:46→22:50)
[2021-09-14] MEDS: Polyethylene Glycol 3350 17 GM PACKET PO (05:48)
[2021-09-14] MEDS: Senna/Docusate Sodium 1 Tablet 2 TABLET PO ×2 (05:48→17:58)
[2021-09-14] MEDS: Acetaminophen 500 MG Tablet 1000 MG PO ×2 (05:48→14:25)
[2021-09-14] MEDS: Ramipril 10 MG Capsule PO (05:49)
[2021-09-14] MEDS: Folic Acid 1 MG Tablet PO (05:49)
[2021-09-14] MEDS: Metoprolol Tartrate 50 MG Tablet PO (05:49)
[2021-09-14] MEDS: Famotidine 20 MG Tablet PO (05:49)
[2021-09-14] MEDS: APIXABAN 2.5 MG TABLET PO ×2 (05:49→17:58)
[2021-09-14] MEDS: Doxycycline 100 MG CAPSULE PO ×2 (05:49→17:58)
[2021-09-14] MEDS: Pentoxifylline 400 MG Tablet PO ×2 (05:49→17:58)
[2021-09-14] MEDS: Menthol/Lanolin/Calamine/Znox 113 GM Tube 1 APPLIC TOPICAL ×2 (05:51→17:58)
[2021-09-14] MEDS: traMADol 50 MG Tablet PO ×2 (07:42→14:43)
--- NOTE | 2021-09-14 09:16 | NURSING ---
Contacted insurance for precertification, waiting for paperwork to be faxed over.
--- NOTE | 2021-09-14 10:24 | NURSING ---
Clinicals faxed to insurance for precert, per their request.
[2021-09-14] MEDS: oxyCODONE 5 MG Tablet 2.5 MG PO ×2 (10:49→22:35)
--- NOTE | 2021-09-14 11:13 | NURSING ---
updated family in room, still awaiting CT auth. temp is down at this time 98.1 temporal.
--- NOTE | 2021-09-14 13:07 | NURSING ---
Spoke with Amarjit Lara from patient's insurance, received approval for both the CT of the LLE and Pelvis. Auth # [id number]. Order faxed to CT.
[2021-09-14] MEDS: Ferrous Sulfate 325 MG Tablet PO ×2 (14:25→17:58)
--- NOTE | 2021-09-14 20:06 | NURSING ---
Patient alert and oriented x3, answers appropriately when asked person, place, year. However, still having periods of forgetfulness. Patient asking where his is at. This nurse told patient is at home probably. Patient asked again, I don't know where my went? She was just here. Patient reoriented.
--- NOTE | 2021-09-14 20:27 | NURSING ---
Addendum entered by Ivonne Macias 09/14/21 20:46: Add to below note: Per family. Patient is not eating. Patient is throwing his food in the trash can or giving to his Natalee to take home. Advised Daughter Elizabeth to notify nursing if it happens while she is here. Also advised her to bring snacks in that patient likes to eat. Nursing will encourage patient to eat meals in dining room. Original Note: Spoke with Kassy Johnson concerning patient's increased confusion. Patient also has increased edema to both BLLE. Increase in warmth and redness also noted from last nights assessment. Lungs CTA in all buckner.
[2021-09-14] MEDS: 0.9% Saline Lock 10 ML Syringe IV (22:35)
[2021-09-14] MEDS: Atorvastatin Calcium 40 MG Tablet PO (22:35)
--- NOTE | 2021-09-14 22:55 | NURSING ---
Dr. Damon notified of increased edema, warmth and redness on RLE. Patient also has been refusing meals, stating he has no taste for anything. reported that he has been either throwing food away or sending it home with family. Recent temperature 99.9F. Patient has been on Doxy 100mg, with Zosyn added 09/13/2021. HgB 7.7 on 09/13/2021. New orders received for doppler of BLE as well as IV lasix 40mg x 3 days. Labs to be drawn in AM. Will continue to monitor.
[2021-09-14] MEDS: Mirtazapine 15 MG Tablet 7.5 MG PO (23:12)
[2021-09-14] MEDS: Furosemide 40 MG/4 ML Vial IV (23:56)
--- NOTE | 2021-09-14 23:59 | NURSING ---
Patient was administered IV Lasix 40mg over 4 minutes via right peripheral IV. Patient tolerated well. Will continue to monitor
[2021-09-15 02:20] VITALS: BP 109/60; PULSE 110; TEMP 37.7
--- NOTE | 2021-09-15 03:06 | NURSING ---
Pt still has low grade fever and having periods of hypotension. New orders received. DC: Ramipril, Folic Acid, Trental, Ferrous Sulfate and Pepcid. Routine Tylenol changed to q6h PRN. Lopressor 50mg changed to 25mg bid. New order for Lasix 40mg IV push bid, Ferrex 150mg bid, and Remeron 7.5mg at hs.
[2021-09-15] MEDS: Piperacil/Tazobactam 3.375 GM/50 ML ML IV ×3 (05:06→22:15)
[2021-09-15] MEDS: 0.9% Saline Lock 10 ML Syringe IV ×3 (05:07→22:05)
[2021-09-15] MEDS: traMADol 50 MG Tablet PO (05:08)
[2021-09-15] MEDS: Polyethylene Glycol 3350 17 GM PACKET PO (05:08)
[2021-09-15] MEDS: Senna/Docusate Sodium 1 Tablet 2 TABLET PO ×2 (05:08→17:35)
[2021-09-15 05:09] VITALS: BP 131/63; PULSE 78
[2021-09-15] MEDS: Metoprolol Tartrate 25 MG Tablet PO ×2 (05:09→17:36)
[2021-09-15] MEDS: Doxycycline 100 MG CAPSULE PO ×2 (05:09→17:35)
[2021-09-15] MEDS: Pantoprazole Sodium 40 MG Tablet PO (05:09)
[2021-09-15] MEDS: APIXABAN 2.5 MG TABLET PO ×2 (05:09→17:36)
[2021-09-15] MEDS: Menthol/Lanolin/Calamine/Znox 113 GM Tube 1 APPLIC TOPICAL ×2 (05:10→17:36)
[2021-09-15 05:11] VITALS: BP 131/63; PULSE 71; RESP 18; TEMP 37.8; O2SAT 94
[2021-09-15 06:24] LABS: Hematocrit 26.5 % (40-54); Hemoglobin 8.4 g/dL (13.0-16.5); Mean Corp Hgb Conc 31.7 g/dL (32-36); Mean Corpuscular Hgb 29.1 pg (27.0-32.0); Mean Corpuscular Volume 91.7 fL (80-94); Mean Platelet Vol. 9.5 fl (6.2-12.0); Platelet Count 399 K/mm3 (150-450); RBC Distribution Width CV 16.8 % (11.6-14.6); RBC Distribution Width SD 55.4 fl (35.1-43.9); Red Blood Count 2.89 M/mm3 (4.6-6.2); White Blood Count 11.5 K/mm3 (4.4-11.0)
[2021-09-15 06:47] LABS: Anion Gap 7 (5-15); BUN 25 mg/dL (7-18); BUN/Creat Ratio 25.2 RATIO (10-20); Calcium,Total 8.5 mg/dL (8.5-10.1); Chloride 103 mmol/L (98-107); Creatinine, Serum 0.99 mg/dL (0.70-1.30); EST Glomerular Filtration Rate 76 mL/min (>60); Est Glom Filt Rate - Afr Amer 92 mL/min (>60); Glucose 88 mg/dL (74-106); Potassium 3.7 mmol/L (3.5-5.1); Sodium Level 139 mmol/L (136-145)
[2021-09-15] MEDS: Furosemide 40 MG/4 ML Vial IV ×2 (09:45→14:58)
[2021-09-15] MEDS: Iron Polysaccharide Complex 150 MG CAPSULE PO ×2 (09:45→17:36)
[2021-09-15 14:49] VITALS: BP 124/60; PULSE 97; RESP 18; TEMP 36.7; O2SAT 92
[2021-09-15 17:36] VITALS: PULSE 97
[2021-09-15] MEDS: Atorvastatin Calcium 40 MG Tablet PO (22:04)
[2021-09-15] MEDS: Mirtazapine 15 MG Tablet 7.5 MG PO (22:04)
[2021-09-15] MEDS: Acetaminophen 500 MG Tablet 1000 MG PO (22:04)
[2021-09-16] MEDS: 0.9% Saline Lock 10 ML Syringe IV ×5 (03:47→20:34)
[2021-09-16] MEDS: Furosemide 40 MG/4 ML Vial IV ×2 (05:03→13:55)
[2021-09-16 05:05] VITALS: BP 105/54; PULSE 82; RESP 18; TEMP 36.8; O2SAT 97
[2021-09-16] MEDS: Menthol/Lanolin/Calamine/Znox 113 GM Tube 1 APPLIC TOPICAL ×2 (05:08→16:17)
[2021-09-16 05:09] VITALS: BP 105/54; PULSE 82
[2021-09-16] MEDS: APIXABAN 2.5 MG TABLET PO ×2 (05:09→16:16)
[2021-09-16] MEDS: Metoprolol Tartrate 25 MG Tablet PO ×2 (05:09→16:16)
[2021-09-16] MEDS: Doxycycline 100 MG CAPSULE PO ×2 (05:09→16:16)
[2021-09-16] MEDS: Pantoprazole Sodium 40 MG Tablet PO (05:10)
[2021-09-16] MEDS: Senna/Docusate Sodium 1 Tablet 2 TABLET PO ×2 (05:10→16:16)
[2021-09-16] MEDS: Piperacil/Tazobactam 3.375 GM/50 ML ML IV ×3 (05:18→20:32)
[2021-09-16] MEDS: Iron Polysaccharide Complex 150 MG CAPSULE PO ×2 (08:13→16:16)
[2021-09-16 14:38] VITALS: BP 100/61; PULSE 96; RESP 17; TEMP 36.6; O2SAT 92
[2021-09-16 16:16] VITALS: PULSE 96
--- NOTE | 2021-09-16 18:18 | NURSING ---
Son and daughter in law in to visit this evening. pt pleasant and talkative. After family left pt with some confusion, sitting in recliner chair. call light in reach. pressure sensitive alarm in place. dysom placed on chair to prevent sliding down in chair. will continue to monitor. pt did not sleep lastnight, will administer melatonin at HS.
[2021-09-16] MEDS: Atorvastatin Calcium 40 MG Tablet PO (20:28)
[2021-09-16] MEDS: MELATONIN 10 MG TABLET PO (20:28)
[2021-09-16] MEDS: Mirtazapine 15 MG Tablet 7.5 MG PO (20:29)
[2021-09-16] MEDS: Acetaminophen 500 MG Tablet 1000 MG PO (20:30)
--- NOTE | 2021-09-16 21:52 | NURSING ---
contacted via telephone regarding written communication from day nurse requesting clarification if Doxycycline to be continued. Per Dr. Damon continue Doxycycline as ordered.
[2021-09-17] MEDS: traMADol 50 MG Tablet PO ×3 (00:50→21:40)
[2021-09-17] MEDS: oxyCODONE 5 MG Tablet 2.5 MG PO (03:34)
[2021-09-17] MEDS: Furosemide 40 MG/4 ML Vial IV (04:55)
[2021-09-17] MEDS: 0.9% Saline Lock 10 ML Syringe IV ×3 (04:57→18:22)
[2021-09-17 05:22] VITALS: BP 131/84; PULSE 81
[2021-09-17] MEDS: Senna/Docusate Sodium 1 Tablet 2 TABLET PO ×2 (05:22→18:23)
[2021-09-17] MEDS: Pantoprazole Sodium 40 MG Tablet PO (05:22)
[2021-09-17] MEDS: Metoprolol Tartrate 25 MG Tablet PO ×2 (05:22→18:22)
[2021-09-17] MEDS: Doxycycline 100 MG CAPSULE PO ×2 (05:22→18:22)
[2021-09-17] MEDS: APIXABAN 2.5 MG TABLET PO ×2 (05:23→18:22)
[2021-09-17] MEDS: Polyethylene Glycol 3350 17 GM PACKET PO (05:23)
[2021-09-17] MEDS: Menthol/Lanolin/Calamine/Znox 113 GM Tube 1 APPLIC TOPICAL ×2 (06:24→18:23)
[2021-09-17] MEDS: Iron Polysaccharide Complex 150 MG CAPSULE PO ×2 (08:33→18:22)
--- NOTE | 2021-09-17 09:32 | WOUNDNOTE ---
wound photo: left heel
[2021-09-17 13:28] VITALS: BP 118/64; PULSE 81; RESP 16; TEMP 36.6; O2SAT 95
[2021-09-17 18:22] VITALS: PULSE 86
[2021-09-17] MEDS: Mirtazapine 15 MG Tablet 7.5 MG PO (21:32)
[2021-09-17] MEDS: Atorvastatin Calcium 40 MG Tablet PO (21:32)
[2021-09-17] MEDS: MELATONIN 10 MG TABLET PO (21:32)
[2021-09-18 05:41] VITALS: BP 133/59; PULSE 79
[2021-09-18] MEDS: Menthol/Lanolin/Calamine/Znox 113 GM Tube 1 APPLIC TOPICAL ×2 (05:42→21:59)
[2021-09-18 05:43] VITALS: BP 133/59; PULSE 79
[2021-09-18] MEDS: Senna/Docusate Sodium 1 Tablet 2 TABLET PO ×2 (05:43→17:55)
[2021-09-18] MEDS: Metoprolol Tartrate 25 MG Tablet PO ×2 (05:43→17:56)
[2021-09-18] MEDS: Pantoprazole Sodium 40 MG Tablet PO (05:43)
[2021-09-18] MEDS: Polyethylene Glycol 3350 17 GM PACKET PO (05:43)
[2021-09-18] MEDS: APIXABAN 2.5 MG TABLET PO ×2 (05:43→17:54)
[2021-09-18] MEDS: Doxycycline 100 MG CAPSULE PO ×2 (05:43→17:54)
[2021-09-18] MEDS: 0.9% Saline Lock 10 ML Syringe IV (05:47)
[2021-09-18] MEDS: traMADol 50 MG Tablet PO ×2 (05:47→12:20)
[2021-09-18 06:05] LABS: Absolute Lymphocyte Count 1.69 X10^3/uL (0.83-4.51); Absolute Neutrophil Count 7.5 X10^3/uL (2.0-7.7); Basophil# 0.04 X10^3/uL; Basophil% 0.4 % (0-1); Eosinophils% 7.4 % (0-5); Hematocrit 24.6 % (40-54); Hemoglobin 7.8 g/dL (13.0-16.5); Lymphocyte # 1.69 X10^3/ul (0.83-4.51); Lymphocyte % 15.6 % (19-41); Mean Corp Hgb Conc 31.7 g/dL (32-36); Mean Corpuscular Hgb 29.8 pg (27.0-32.0); Mean Corpuscular Volume 93.9 fL (80-94); Mean Platelet Vol. 9.3 fl (6.2-12.0); Monocyte# 0.79 X10^3/uL; Monocyte% 7.3 % (0-10); NRBC Flagged by Analyzer 0 % (0-5); Neutrophil # 7.48 X10^3/uL (2.7-7.7); Neutrophil % 68.8 % (47-70); Platelet Count 446 K/mm3 (150-450); RBC Distribution Width SD 57.5 fl (35.1-43.9); Red Blood Count 2.62 M/mm3 (4.6-6.2); White Blood Count 10.9 K/mm3 (4.4-11.0)
[2021-09-18 06:26] LABS: Anion Gap 5 (5-15); BUN 32 mg/dL (7-18); Calcium,Total 8.2 mg/dL (8.5-10.1); Chloride 102 mmol/L (98-107); Creatinine, Serum 0.97 mg/dL (0.70-1.30); EST Glomerular Filtration Rate 78 mL/min (>60); Est Glom Filt Rate - Afr Amer 94 mL/min (>60); Estimated Creatinine Clearance 52.05 ml/min; Glucose 93 mg/dL (74-106); Potassium 3.8 mmol/L (3.5-5.1); Sodium Level 141 mmol/L (136-145)
[2021-09-18] MEDS: Iron Polysaccharide Complex 150 MG CAPSULE PO ×2 (08:08→17:54)
[2021-09-18] MEDS: Tuberculin,Purif.prot.deriv. 50 TU/ML Vial 0.1 ML ID (11:01)
[2021-09-18] MEDS: COVID-19 VACC, MRNA(PFIZER)/PF 30 MCG/0.3 ML SYRINGE IM (11:06)
[2021-09-18] MEDS: Acetaminophen 500 MG Tablet 1000 MG PO (12:20)
[2021-09-18 14:23] VITALS: BP 116/57; PULSE 63; RESP 16; TEMP 36.7; O2SAT 94
[2021-09-18 17:56] VITALS: BP 108/51; PULSE 68
[2021-09-18 21:49] VITALS: PULSE 67; RESP 16; O2SAT 94
[2021-09-18] MEDS: Atorvastatin Calcium 40 MG Tablet PO (21:58)
[2021-09-18] MEDS: Mirtazapine 15 MG Tablet 7.5 MG PO (21:58)
[2021-09-18] MEDS: MELATONIN 10 MG TABLET PO (21:58)
[2021-09-19 05:06] VITALS: PULSE 75; RESP 16; O2SAT 93
[2021-09-19] MEDS: traMADol 50 MG Tablet PO (05:13)
[2021-09-19] MEDS: Senna/Docusate Sodium 1 Tablet 2 TABLET PO ×2 (05:13→17:44)
[2021-09-19] MEDS: Polyethylene Glycol 3350 17 GM PACKET PO (05:13)
[2021-09-19] MEDS: Doxycycline 100 MG CAPSULE PO ×2 (05:13→17:44)
[2021-09-19 05:14] VITALS: BP 118/58; PULSE 74
[2021-09-19] MEDS: APIXABAN 2.5 MG TABLET PO ×2 (05:14→17:43)
[2021-09-19] MEDS: Pantoprazole Sodium 40 MG Tablet PO (05:14)
[2021-09-19] MEDS: Metoprolol Tartrate 25 MG Tablet PO ×2 (05:14→17:44)
[2021-09-19] MEDS: Menthol/Lanolin/Calamine/Znox 113 GM Tube 1 APPLIC TOPICAL ×2 (05:15→17:45)
[2021-09-19 05:25] VITALS: RESP 16; TEMP 37.2; O2SAT 93
--- NOTE | 2021-09-19 05:29 | NURSING ---
22 gauge IV removed from right forearm. Tip intact. Patient tolerated well.
[2021-09-19] MEDS: Iron Polysaccharide Complex 150 MG CAPSULE PO ×2 (07:58→17:42)
--- NOTE | 2021-09-19 09:57 | NURSING ---
Overall patient cooperative and pleasant this AM, per usual. However was somewhat disoriented when communicating. Unable to understand at times and also rambles about things that are irrelevant almost as if a hallucination of some sort since he describes things that are happening to him but are not presently taking place.
--- NOTE | 2021-09-19 10:04 | CASEMGMT ---
Social Work IDT met with patient, and dtr for care plan meeting. Discussed patient's progress in PT/OT/ST and nursing. Explained [facility] insurance with [employer] 09/20 and continued stay is not guaranteed. Explained and provided insurance care plan with [facility] 09/28. Pt has IV ATB until 09/20, has wounds. Discussed interventions to manage pain. Communication left for Dr. and nursing. The goal is for pt to return home with with 2 steps to enter. Inquired about who can assist pt at home as is unable to assist physically. will be home with him 24/03 to supervision as pt has some forgetfulness. does complete pts meds and finances. Dtr is supportive and stays with pt/ during the day 4-5 days a week and can stay the night to help with the transition at DC. SW to continue to follow for DC Planning. Vicki Andrew, CHASE CANDEL[employer]IAW
--- NOTE | 2021-09-19 11:10 | CASEMGMT ---
Social Work SW assisted pt in completing Healthcare POA and Living Will. Pt listed Natalee as POA, daughter Elizabeth as first alternate and son Rc as second alternate. Pt given originals and copies, and copies placed in chart. LOVELY Key
[2021-09-19 13:26] VITALS: BP 133/66; PULSE 73; RESP 18; TEMP 36.9; O2SAT 92
[2021-09-19 17:44] VITALS: PULSE 88
[2021-09-19] MEDS: Acetaminophen 500 MG Tablet 1000 MG PO ×2 (18:35→23:16)
[2021-09-19] MEDS: Mirtazapine 15 MG Tablet 7.5 MG PO (23:16)
[2021-09-19] MEDS: MELATONIN 10 MG TABLET PO (23:17)
[2021-09-19] MEDS: Atorvastatin Calcium 40 MG Tablet PO (23:17)
[2021-09-20 05:46] VITALS: BP 119/59; PULSE 75; RESP 18; TEMP 36.7; O2SAT 96
[2021-09-20 05:47] VITALS: BP 119/59; PULSE 75
[2021-09-20] MEDS: Metoprolol Tartrate 25 MG Tablet PO ×2 (05:47→17:11)
[2021-09-20] MEDS: Acetaminophen 500 MG Tablet 1000 MG PO ×3 (05:48→21:17)
[2021-09-20] MEDS: Doxycycline 100 MG CAPSULE PO ×2 (05:48→17:12)
[2021-09-20] MEDS: APIXABAN 2.5 MG TABLET PO ×2 (05:48→17:12)
[2021-09-20] MEDS: Pantoprazole Sodium 40 MG Tablet PO (05:48)
[2021-09-20] MEDS: Menthol/Lanolin/Calamine/Znox 113 GM Tube 1 APPLIC TOPICAL ×2 (05:50→17:14)
[2021-09-20] MEDS: Iron Polysaccharide Complex 150 MG CAPSULE PO ×2 (08:24→17:11)
--- NOTE | 2021-09-20 13:03 | MDS.RN ---
Information for the mds was obtained from review of the clinical record, interview of resident, staff, and direct observation of resident's care.
[2021-09-20 13:52] VITALS: BP 135/71; PULSE 84; RESP 24; TEMP 36.6; O2SAT 97
[2021-09-20 17:11] VITALS: PULSE 84
[2021-09-20] MEDS: Senna/Docusate Sodium 1 Tablet 2 TABLET PO (17:11)
[2021-09-20] MEDS: Mirtazapine 15 MG Tablet 7.5 MG PO (21:17)
[2021-09-20] MEDS: MELATONIN 10 MG TABLET PO (21:17)
[2021-09-20] MEDS: Atorvastatin Calcium 40 MG Tablet PO (21:18)
[2021-09-20 21:20] VITALS: PULSE 69; RESP 17
[2021-09-21] MEDS: Menthol/Lanolin/Calamine/Znox 113 GM Tube 1 APPLIC TOPICAL ×2 (05:46→16:57)
[2021-09-21] MEDS: Pantoprazole Sodium 40 MG Tablet PO (05:47)
[2021-09-21] MEDS: Doxycycline 100 MG CAPSULE PO ×2 (05:47→16:55)
[2021-09-21] MEDS: APIXABAN 2.5 MG TABLET PO ×2 (05:47→16:55)
[2021-09-21] MEDS: Acetaminophen 500 MG Tablet 1000 MG PO ×3 (05:47→21:23)
[2021-09-21 06:00] VITALS: BP 143/58; PULSE 80
[2021-09-21] MEDS: Metoprolol Tartrate 25 MG Tablet PO ×2 (06:00→16:55)
[2021-09-21] MEDS: Iron Polysaccharide Complex 150 MG CAPSULE PO ×2 (08:34→16:55)
[2021-09-21 08:35] VITALS: PULSE 46; RESP 18; O2SAT 100
--- NOTE | 2021-09-21 14:40 | NURSING ---
Addendum entered by Julianne Macedo 09/21/21 15:49: was able to update Natalee, regarding pt appt and that she can meet him there. verbalized understanding. Original Note: attempted to notify that transport was set up via WC to his appt on sep 24, physicians transport to [facility], phone busy, will try later.
[2021-09-21 16:54] VITALS: BP 120/46; PULSE 85; RESP 18; TEMP 36.6; O2SAT 94
[2021-09-21 16:55] VITALS: PULSE 85
[2021-09-21] MEDS: Senna/Docusate Sodium 1 Tablet 2 TABLET PO (16:55)
[2021-09-21] MEDS: Mirtazapine 15 MG Tablet 7.5 MG PO (21:22)
[2021-09-21] MEDS: MELATONIN 10 MG TABLET PO (21:22)
[2021-09-21] MEDS: Atorvastatin Calcium 40 MG Tablet PO (21:22)
[2021-09-22] MEDS: Polyethylene Glycol 3350 17 GM PACKET PO (04:59)
[2021-09-22 05:00] VITALS: BP 130/58; PULSE 82
[2021-09-22] MEDS: APIXABAN 2.5 MG TABLET PO ×2 (05:00→17:20)
[2021-09-22] MEDS: Senna/Docusate Sodium 1 Tablet 2 TABLET PO ×2 (05:00→17:21)
[2021-09-22] MEDS: Metoprolol Tartrate 25 MG Tablet PO ×2 (05:00→17:20)
[2021-09-22] MEDS: Doxycycline 100 MG CAPSULE PO ×2 (05:00→17:21)
[2021-09-22] MEDS: Acetaminophen 500 MG Tablet 1000 MG PO ×3 (05:00→19:59)
[2021-09-22] MEDS: Pantoprazole Sodium 40 MG Tablet PO (05:00)
[2021-09-22] MEDS: Menthol/Lanolin/Calamine/Znox 113 GM Tube 1 APPLIC TOPICAL ×2 (05:04→22:10)
[2021-09-22] MEDS: Iron Polysaccharide Complex 150 MG CAPSULE PO ×2 (08:20→17:21)
[2021-09-22 13:40] VITALS: BP 142/56; PULSE 70; RESP 20; TEMP 36.9; O2SAT 94
[2021-09-22 17:20] VITALS: BP 121/55; PULSE 66
[2021-09-22] MEDS: MELATONIN 10 MG TABLET PO (19:59)
[2021-09-22] MEDS: Atorvastatin Calcium 40 MG Tablet PO (20:00)
[2021-09-22] MEDS: Mirtazapine 15 MG Tablet 7.5 MG PO (20:00)
[2021-09-22 20:08] VITALS: PULSE 58; RESP 18; O2SAT 92
[2021-09-23] MEDS: Senna/Docusate Sodium 1 Tablet 2 TABLET PO ×2 (05:18→16:51)
[2021-09-23] MEDS: Acetaminophen 500 MG Tablet 1000 MG PO ×3 (05:18→20:18)
[2021-09-23] MEDS: Pantoprazole Sodium 40 MG Tablet PO (05:18)
[2021-09-23] MEDS: Doxycycline 100 MG CAPSULE PO ×2 (05:18→16:51)
[2021-09-23 05:19] VITALS: BP 128/68; PULSE 84
[2021-09-23] MEDS: Metoprolol Tartrate 25 MG Tablet PO ×2 (05:19→16:50)
[2021-09-23] MEDS: APIXABAN 2.5 MG TABLET PO ×2 (05:19→16:51)
[2021-09-23] MEDS: Menthol/Lanolin/Calamine/Znox 113 GM Tube 1 APPLIC TOPICAL ×2 (05:22→16:51)
[2021-09-23] MEDS: Iron Polysaccharide Complex 150 MG CAPSULE PO ×2 (08:19→16:51)
[2021-09-23 09:53] VITALS: PULSE 59; O2SAT 94
[2021-09-23 15:55] VITALS: BP 117/53; PULSE 69; RESP 16; TEMP 36.4; O2SAT 95
[2021-09-23 16:50] VITALS: BP 117/59; PULSE 66
[2021-09-23] MEDS: MELATONIN 10 MG TABLET PO (20:17)
[2021-09-23] MEDS: Mirtazapine 15 MG Tablet 7.5 MG PO (20:18)
[2021-09-23] MEDS: Atorvastatin Calcium 40 MG Tablet PO (20:18)
[2021-09-24 05:15] VITALS: BP 114/48; PULSE 64
[2021-09-24] MEDS: Senna/Docusate Sodium 1 Tablet 2 TABLET PO ×2 (05:15→17:45)
[2021-09-24] MEDS: Pantoprazole Sodium 40 MG Tablet PO (05:15)
[2021-09-24] MEDS: Polyethylene Glycol 3350 17 GM PACKET PO (05:15)
[2021-09-24] MEDS: Metoprolol Tartrate 25 MG Tablet PO ×2 (05:15→17:45)
[2021-09-24] MEDS: Acetaminophen 500 MG Tablet 1000 MG PO ×3 (05:16→20:43)
[2021-09-24] MEDS: APIXABAN 2.5 MG TABLET PO ×2 (05:16→17:45)
[2021-09-24] MEDS: Doxycycline 100 MG CAPSULE PO (05:16)
[2021-09-24] MEDS: Menthol/Lanolin/Calamine/Znox 113 GM Tube 1 APPLIC TOPICAL ×2 (05:17→17:46)
[2021-09-24] MEDS: Iron Polysaccharide Complex 150 MG CAPSULE PO ×2 (08:07→17:45)
[2021-09-24 08:16] VITALS: PULSE 64; RESP 16; O2SAT 94
--- NOTE | 2021-09-24 08:40 | NURSING ---
pt off unit via WC for appt w/surgeon
--- NOTE | 2021-09-24 10:42 | NURSING ---
son (MARYANN) called and reported that he will be in to see pt tomorrow 09/25/21 at 0900 for a social security phone call. Therapy updated. pt aware.
--- NOTE | 2021-09-24 11:16 | NURSING ---
pt returned from appt, no new orders.
--- NOTE | 2021-09-24 11:59 | NURSING ---
Addendum entered by Julianne Macedo 09/24/21 12:26: continue Wt bearing restriction, PWB 50% LLEx6 wks postop. Posterior hip precautions x3 mo postop. f/u becca in 4 wks. continue with iceas needed Original Note: sutures were removed from LT hip incision at Dr hudson office this AM,
--- NOTE | 2021-09-24 13:24 | NURSING ---
Had wound nurse assess LT heel per welder 2nd shift report stating it looked worse. new order to DC mepilex and place 4x4's and wrap with henry. pt states he has had it for a long time, use to cut at it with his knife. Calloused area.
--- NOTE | 2021-09-24 14:14 | WOUNDNOTE ---
wound photo: left heel
[2021-09-24 15:44] VITALS: BP 111/38; PULSE 79; RESP 18; TEMP 36.9; O2SAT 93
[2021-09-24 17:45] VITALS: PULSE 79
[2021-09-24] MEDS: Mirtazapine 15 MG Tablet 7.5 MG PO (20:42)
[2021-09-24] MEDS: MELATONIN 10 MG TABLET PO (20:43)
[2021-09-24] MEDS: Atorvastatin Calcium 40 MG Tablet PO (20:44)
[2021-09-25] MEDS: Acetaminophen 500 MG Tablet 1000 MG PO ×3 (05:22→20:43)
[2021-09-25] MEDS: Pantoprazole Sodium 40 MG Tablet PO (05:22)
[2021-09-25] MEDS: Senna/Docusate Sodium 1 Tablet 2 TABLET PO ×2 (05:22→17:45)
[2021-09-25] MEDS: Polyethylene Glycol 3350 17 GM PACKET PO (05:22)
[2021-09-25 05:23] VITALS: BP 130/48; PULSE 69
[2021-09-25] MEDS: APIXABAN 2.5 MG TABLET PO ×2 (05:23→17:44)
[2021-09-25] MEDS: Metoprolol Tartrate 25 MG Tablet PO ×2 (05:23→17:44)
[2021-09-25] MEDS: Menthol/Lanolin/Calamine/Znox 113 GM Tube 1 APPLIC TOPICAL ×2 (05:26→17:44)
[2021-09-25 05:56] LABS: Absolute Lymphocyte Count 1.88 X10^3/uL (0.83-4.51); Absolute Neutrophil Count 4.6 X10^3/uL (2.0-7.7); Basophil# 0.04 X10^3/uL; Basophil% 0.5 % (0-1); Eosinophil# 1.07 X10^3/uL; Hematocrit 29.7 % (40-54); Hemoglobin 8.7 g/dL (13.0-16.5); Lymphocyte # 1.88 X10^3/ul (0.83-4.51); Lymphocyte % 22.8 % (19-41); Mean Corp Hgb Conc 29.3 g/dL (32-36); Mean Corpuscular Hgb 28.6 pg (27.0-32.0); Mean Corpuscular Volume 97.7 fL (80-94); Mean Platelet Vol. 9.4 fl (6.2-12.0); Monocyte# 0.61 X10^3/uL; Monocyte% 7.4 % (0-10); NRBC Flagged by Analyzer 0 % (0-5); Neutrophil # 4.63 X10^3/uL (2.7-7.7); Neutrophil % 55.9 % (47-70); Platelet Count 410 K/mm3 (150-450); RBC Distribution Width CV 18.2 % (11.6-14.6); Red Blood Count 3.04 M/mm3 (4.6-6.2); White Blood Count 8.3 K/mm3 (4.4-11.0)
[2021-09-25 06:37] LABS: Anion Gap 3 (5-15); BUN 20 mg/dL (7-18); BUN/Creat Ratio 24.7 RATIO (10-20); Calcium,Total 8.4 mg/dL (8.5-10.1); Chloride 110 mmol/L (98-107); Creatinine, Serum 0.81 mg/dL (0.70-1.30); EST Glomerular Filtration Rate 96 mL/min (>60); Est Glom Filt Rate - Afr Amer 116 mL/min (>60); Estimated Creatinine Clearance 62.34 ml/min; Glucose 85 mg/dL (74-106); Potassium 4.5 mmol/L (3.5-5.1); Sodium Level 142 mmol/L (136-145)
[2021-09-25] MEDS: Iron Polysaccharide Complex 150 MG CAPSULE PO ×2 (07:55→17:44)
--- NOTE | 2021-09-25 11:51 | CASEMGMT ---
Social Work Insurance issued LCD 09/27, DC 09/28. Left message with dtr to return call to discuss DC plans. IDT recommending [facility] PT/OT/SN. No DME needs identified. Will await return phone call. CHASE Colon CERTIFIED HYPERBARIC TECHNOLOGIST
--- NOTE | 2021-09-25 16:41 | CASEMGMT ---
Social Work Spoke with dtr. She is agreeable to DC date. Requesting [facility]. Referral made for PT/OT/SN. No DME needs. Dtr to transport. Plan: DC home 09/28 with , [facility] PT/OT/SN Vicki Andrew, CHASE [employer]DELARIAW
[2021-09-25 16:56] VITALS: BP 122/53; PULSE 58; RESP 18; TEMP 36.8; O2SAT 92
[2021-09-25 17:44] VITALS: PULSE 78
--- NOTE | 2021-09-25 18:41 | DS.PCM_ITS ---
Providers Date of Admission: 09/10/21 Primary Care Physician: David Rios MD Consultations 09/14/21 01:47 Consult: Onc/Wound/personnel quality assurance auditor Routine Comment: Reason for Consult:: Left Heel Reason For Visit: INTER TROCHANTRIC FRACTURE Diagnosis Discharge Diagnosis (1) Debility: Status: Acute Code(s): R53.81 - Other malaise (2) Periprosthetic fracture around internal prosthetic left hip joint: Code(s): M97.02XA - Periprosthetic fracture around internal prosthetic left hip joint, initial encounter (3) Anemia: Status: Resolved Code(s): D64.9 - Anemia, unspecified (4) ARCHIE (acute kidney injury): Status: Resolved Code(s): N17.9 - Acute kidney failure, unspecified (5) Hypertension: Status: Chronic Code(s): I10 - Essential (primary) hypertension (6) Peripheral arterial occlusive disease: Status: Acute Code(s): I77.9 - Disorder of arteries and arterioles, unspecified (7) Hyperlipidemia: Status: Acute Code(s): E78.5 - Hyperlipidemia, unspecified (8) Atrial fibrillation: Status: Acute Code(s): I48.91 - Unspecified atrial fibrillation (9) Benign prostate hyperplasia: Status: Acute Code(s): N40.0 - Benign prostatic hyperplasia without lower urinary tract symptoms (10) Gastroesophageal reflux disease: Status: Acute Code(s): K21.9 - Gastro-esophageal reflux disease without esophagitis (11) Coronary artery disease: Status: Acute Code(s): I25.10 - Atherosclerotic heart disease of [place] coronary artery without angina pectoris Medications at Discharge Home Medications amlodipine 10 mg PO DAILY 06/23/13 pentoxifylline 400 mg PO BID 06/23/13 rosuvastatin 20 mg PO QHS 06/23/13 metoprolol tartrate 100 mg-hydrochlorothiazide 25 mg tablet 1 tab PO DAILY 01/31 01/18 multivitamin 1 tab PO DAILY 02/24/20 omega-3 fatty acids-fish oil 360 mg-1,200 mg capsule 1 cap PO DAILY 02/24/20 ramipril 10 mg capsule 10 mg PO DAILY cap 02/24/20 furosemide 20 mg tablet 20 mg PO DAILY PRN PRN tab 07/19/21 famotidine 20 mg PO DAILY 09/08/21 ferrous sulfate [FeroSul] 325 mg PO BID 09/08/21 folic acid 1 mg PO DAILY 09/08/21 sennosides [Senokot] 8.6 mg PO BID PRN 09/08/21 tramadol 50 mg PO Q6H PRN PRN 09/08/21 doxycycline monohydrate 100 mg PO BID #28 cap 09/10/21 Eliquis 2.5 mg PO BID 10 Days #20 tab 09/25/21 acetaminophen 1,000 mg PO Q8 #0 tab 09/25/21 aspirin 81 mg PO DAILY #0 tab 09/25/21 metoprolol tartrate 25 mg PO BID 30 Days #60 tab 09/25/21 pantoprazole 40 mg PO DAILY 30 Days #30 tab 09/25/21 polysaccharide iron complex [Ferrex 150] 150 mg PO BIDCM 30 Days #60 cap 09/25/21 Hospital Course Operations - (ORIF left proximal femur with revision left total hip, replaced both components) Procedures None Summary of Care Provided Minutes Spent on Discharge: 35 Hospital Course: 86 year old male with below past medical history hospitalized for left periprosthetic hip fracture, underwent ORIF left proximal femur with revision left total hip, replaced both components 09/09/[address] Ashford, complicated by acute kidney injury, postoperative anemia, admitted to TCU with debility, here for rehabilitation, strengthening, prior to discharge home with . Discharge home with 09/28/2021, Home Health Care PT/OT/SN, No durable medical equipment needs. Physical Exam Const alert and oriented x3 General Appearance: cooperative HEENT normocephalic Eyes PERRL and EOMs intact bilaterally Neck supple, no JVD and no carotid bruits Resp normal respiratory effort, normal air movement and clear to auscultation bilaterally Cardio regular rate and regular rhythm GI normal to inspection, nondistended, normoactive bowel sounds, non-tender and non -distended Extremity normal capillary refill General Extremity: Negative for edema Skin no rashes or lesions noted General Skin Exam: no breakdown Psych affect normal Appearance: appropriate Weight / BMI Weight Weight: 79.787 kg Body Mass Index (BMI) 27.6 ABG / Lab / Microbiology Data Result Diagrams: 09/25/21 05:31 09/25/21 05:31 Laboratory: Laboratory Results - last 24 hr 09/25/21 05:31: WBC 8.3, RBC 3.04 L, Hgb 8.7 L, Hct 29.7 L, MCV 97.7 H, MCH 28.6, MCHC 29.3 L, RDW Std Deviation 65.0 H, RDW Coeff of Denise 18.2 H, Plt Count 410, MPV 9.4, Immature Gran % (Auto) 0.400, Neut % (Auto) 55.9, Lymph % (Auto) 22.8, Reeves % (Auto) 7.4, Eos % (Auto) 13.0 H, Baso % (Auto) 0.5, Absolute Neuts (auto) 4.6, Absolute Lymphs (auto) 1.88, Nucleated RBC % 0 09/25/21 05:31: Sodium 142, Potassium 4.5, Chloride 110 H, Carbon Dioxide 29.0, Anion Gap 3 L, BUN 20 H, Creatinine 0.81, Estim Creat Clear Calc 62.34, Est GFR (MDRD) Af Amer 116, Est GFR (MDRD) Non-Af 96, BUN/Creatinine Ratio 24.7 H, Glucose 85, Calcium 8.4 L Microbiology: Microbiology 09/20/21 12:15 Nasal Secretion SARS-CoV-2 Antigen (Rapid) - Final 09/13/21 20:48 Blood Culture (Wb) - Venous Blood Culture - Final No growth in 5 days. 09/13/21 21:50 Blood Culture (Wb) - Venous Blood Culture - Final No growth in 5 days. 09/13/21 01:45 Urine, Clean Catch Urine Culture - Final Culture exhibits no growth. 09/13/21 13:46 Nasal Secretion SARS-CoV-2 Antigen (Rapid) - Final D/C Instructions Discharge Diet: No restrictions Discharge Activity: Return to Normal Activity, May Shower and Use Walker Weight Bearing Status: Weight bearing as tolerated Call your doctor if you observe: Fever of 101 or Higher, Inability to urinate, Inability to have a bowel movement, Shortness of breath, Dizziness, Fainting spells, Swelling in the ankles, Chest pain and Uncontrolled pain Additional Instructions: Discharge home with 09/28/2021, Home Health Care PT/OT/SN, No durable medical equipment needs. Please Follow Up With: Fitz Ashford MD When: As scheduled. Meaningful Use Info Meaningful Use Diagnoses (Choose all that apply): None applicable Discharge Plan Admission Admit Date/Time: 09/10/21 14:39 Primary Reason for Your Visit: Debility. Attending Provider: Pipe Damon Chi Primary Care Provider: David Rios Instructions Additional Instructions / Restrictions: Discharge home with 09/28/2021, Home Health Care PT/OT/SN, No durable medical equipment needs. Discharge Orders/Prescriptions Prescriptions: New aspirin 325 mg Tablet 81 mg PO DAILY Qty: 0 RF: 0 polysaccharide iron complex [Ferrex 150] 150 mg iron Capsule 150 mg PO BIDCM 30 Days Qty: 60 RF: 0 acetaminophen 500 mg Tablet 1,000 mg PO Q8 Qty: 0 RF: 0 pantoprazole 40 mg Tablet,Delayed Release (Dr/Ec) 40 mg PO DAILY 30 Days Qty: 30 RF: 0 metoprolol tartrate 25 mg Tablet 25 mg PO BID 30 Days Qty: 60 RF: 0 Continued furosemide [Lasix] 20 mg tablet 20 mg PO DAILY PRN PRN (Reason: Swelling) RF: 0 rosuvastatin 20 MG tablet 20 mg PO QHS RF: 0 Eliquis 2.5 mg tablet 2.5 mg PO BID 10 Days Qty: 20 RF: 0 Discontinued aspirin 325 mg tablet 325 mg PO BID Qty: 0 RF: 0 No Action metoprolol ta-hydrochlorothiaz 100-25 mg tablet 1 tab PO DAILY RF: 0 omega-3 fatty acids-fish oil [Fish Oil] 360-1,200 mg capsule 1 cap PO DAILY RF: 0 multivitamin Tablet 1 tab PO DAILY RF: 0 pentoxifylline 400 MG tablet 400 mg PO BID RF: 0 amlodipine 10 MG tablet 10 mg PO DAILY RF: 0 ramipril 10 mg capsule 10 mg PO DAILY RF: 0 tramadol 50 mg tablet 50 mg PO Q6H PRN PRN (Reason: Pain) RF: 0 famotidine 20 mg tablet 20 mg PO DAILY RF: 0 sennosides [Senokot] 8.6 mg Tablet 8.6 mg PO BID PRN (Reason: Constipation) RF: 0 ferrous sulfate [FeroSul] 325 mg (65 mg iron) tablet 325 mg PO BID RF: 0 folic acid 1 mg tablet 1 mg PO DAILY RF: 0 doxycycline monohydrate 100 mg capsule 100 mg PO BID Qty: 28 RF: 0 Referrals / Follow Up: Fitz Ashford MD [STAFF PHYSICIAN] - 10/22/21 11:00 am David Rios MD [Primary Care Provider] - Disposition Disposition (needs filled in before D/C Order can be placed): Home Health Service
[2021-09-25] MEDS: MELATONIN 10 MG TABLET PO (20:41)
[2021-09-25] MEDS: Mirtazapine 15 MG Tablet 7.5 MG PO (20:42)
[2021-09-25] MEDS: Atorvastatin Calcium 40 MG Tablet PO (20:43)
[2021-09-25 20:45] VITALS: PULSE 86; RESP 16; O2SAT 95
[2021-09-26] MEDS: Senna/Docusate Sodium 1 Tablet 2 TABLET PO ×2 (04:35→18:02)
[2021-09-26] MEDS: Acetaminophen 500 MG Tablet 1000 MG PO ×3 (04:35→22:54)
[2021-09-26] MEDS: Polyethylene Glycol 3350 17 GM PACKET PO (04:35)
[2021-09-26 04:36] VITALS: BP 124/55; PULSE 86
[2021-09-26] MEDS: Pantoprazole Sodium 40 MG Tablet PO (04:36)
[2021-09-26] MEDS: APIXABAN 2.5 MG TABLET PO ×2 (04:36→18:03)
[2021-09-26] MEDS: Metoprolol Tartrate 25 MG Tablet PO ×2 (04:36→18:03)
[2021-09-26] MEDS: Menthol/Lanolin/Calamine/Znox 113 GM Tube 1 APPLIC TOPICAL ×2 (04:37→18:01)
[2021-09-26] MEDS: Iron Polysaccharide Complex 150 MG CAPSULE PO ×2 (08:30→18:03)
--- NOTE | 2021-09-26 10:38 | NURSING ---
Upon entering pt's room pt was observed on the floor. Resident was sitting up with legs out in front of him. Resident was immediately assessed by this nurse and a small reddened abrasion was found on lower back. No other injuries were noted. No external or internal rotation of Bilateral hips pt denies pain or discomfort. Neuro checks WNP BP 133/77 R 18 Pulse 74 SpO2 98. Pt denies hitting head. Pt was trying to organize his room. Pt unlocks chair to move around room at times Dr. Damon and family updated. No new orders at this time. Neuro Checks in place q2hr. Will continue to monitor.
[2021-09-26 11:01] VITALS: BP 113/51; PULSE 64
[2021-09-26 14:03] VITALS: BP 112/43; PULSE 66; RESP 20; TEMP 37.2; O2SAT 99
[2021-09-26 17:31] LABS: Absolute Lymphocyte Count 1.76 X10^3/uL (0.83-4.51); Absolute Neutrophil Count 4.2 X10^3/uL (2.0-7.7); Basophil# 0.04 X10^3/uL; Basophil% 0.5 % (0-1); Eosinophil# 0.78 X10^3/uL; Eosinophils% 10.6 % (0-5); Hematocrit 29.6 % (40-54); Hemoglobin 8.9 g/dL (13.0-16.5); Lymphocyte # 1.76 X10^3/ul (0.83-4.51); Lymphocyte % 23.8 % (19-41); Mean Corp Hgb Conc 30.1 g/dL (32-36); Mean Corpuscular Hgb 29.5 pg (27.0-32.0); Mean Platelet Vol. 9.2 fl (6.2-12.0); Monocyte# 0.56 X10^3/uL; Monocyte% 7.6 % (0-10); NRBC Flagged by Analyzer 0 % (0-5); Neutrophil # 4.21 X10^3/uL (2.7-7.7); Neutrophil % 57.1 % (47-70); POSITIVE MORPHOLOGY YES; Platelet Count 389 K/mm3 (150-450); RBC Distribution Width CV 18.5 % (11.6-14.6); RBC Distribution Width SD 65.9 fl (35.1-43.9); Red Blood Count 3.02 M/mm3 (4.6-6.2); White Blood Count 7.4 K/mm3 (4.4-11.0)
[2021-09-26 17:35] LABS: Differential Indicated SCAN CRITERIA MET
[2021-09-26 17:45] LABS: Anion Gap 5 (5-15); BUN 20 mg/dL (7-18); BUN/Creat Ratio 21.7 RATIO (10-20); Calcium,Total 8.1 mg/dL (8.5-10.1); Chloride 107 mmol/L (98-107); Creatinine, Serum 0.92 mg/dL (0.70-1.30); EST Glomerular Filtration Rate 83 mL/min (>60); Est Glom Filt Rate - Afr Amer 100 mL/min (>60); Estimated Creatinine Clearance 54.88 ml/min; Glucose 120 mg/dL (74-106); Potassium 4.8 mmol/L (3.5-5.1); Sodium Level 141 mmol/L (136-145)
[2021-09-26 17:57] LABS: Anisocytosis 1+; Differential Comment SCANNED
[2021-09-26 18:03] VITALS: BP 127/66; PULSE 79
--- NOTE | 2021-09-26 19:46 | NURSING ---
Pt refusing CT scan of the Head at this time. Pt's daughter updated on refusal. Family will be in tomorrow to discuss CT with pt. Will continue to monitor pt and neuro checks q2hrs. Call light within reach and alarm on chair.
[2021-09-26] MEDS: Mirtazapine 15 MG Tablet 7.5 MG PO (22:54)
[2021-09-26] MEDS: MELATONIN 10 MG TABLET PO (22:54)
[2021-09-26] MEDS: Atorvastatin Calcium 40 MG Tablet PO (22:54)
[2021-09-26 23:56] LABS: Mucous, Urine 0 SEEN /hpf (<or=2+); Squamous Epithelial Cells - UA 0 SEEN /hpf (0-5)
[2021-09-27 00:15] LABS: Color, Urine Yellow (Yellow); Glucose, Dipstick Normal (Normal); Ketone-Dipstick Negative (Negative); Leukocyte Esterase-Dipstick Negative /ul (Negative); Nitrite-Dipstick Negative (Negative); Occult Blood-Urine 50 /ul (Negative); Protein-Dipstick 15 mg/dl (Negative); Urine Bilirubin Dipstick Negative (Negative); Urine Clarity Clear (Clear); Urine Urobilinogen Normal (Normal); Urine pH 6.5 (5.0 - 8.0)
[2021-09-27 00:26] LABS: Bacteria RARE /hpf (None Seen); Red Blood Cells-Urine 5-10 SEEN /hpf (0-5); White Blood Cells 0-5 SEEN /hpf (0-5)
[2021-09-27] MEDS: oxyCODONE 5 MG Tablet 2.5 MG PO (03:33)
[2021-09-27 04:43] VITALS: BP 115/52; PULSE 71
[2021-09-27 04:44] VITALS: PULSE 71
[2021-09-27] MEDS: Senna/Docusate Sodium 1 Tablet 2 TABLET PO ×2 (04:44→17:40)
[2021-09-27] MEDS: Acetaminophen 500 MG Tablet 1000 MG PO ×3 (04:44→22:39)
[2021-09-27] MEDS: Metoprolol Tartrate 25 MG Tablet PO ×2 (04:44→17:39)
[2021-09-27] MEDS: APIXABAN 2.5 MG TABLET PO ×2 (04:44→17:39)
[2021-09-27] MEDS: Pantoprazole Sodium 40 MG Tablet PO (04:44)
[2021-09-27] MEDS: Menthol/Lanolin/Calamine/Znox 113 GM Tube 1 APPLIC TOPICAL ×2 (04:45→17:41)
[2021-09-27] MEDS: Polyethylene Glycol 3350 17 GM PACKET PO (04:45)
[2021-09-27] MEDS: Iron Polysaccharide Complex 150 MG CAPSULE PO ×2 (08:02→17:40)
--- NOTE | 2021-09-27 11:16 | CASEMGMT ---
Social Work SW was notified pt had a fall, but family still want him home. Updated [facility] and added SW to order to follow for safe transition home. Vicki Andrew, WEB MOBILE DESIGNER CARDIOVASCULAR SURGEON
--- NOTE | 2021-09-27 13:31 | RAD.NOTE ---
pt ready and willing to go down and get CT scan, notified CT and they have order scanned in. pt family here and want him to get it. They will do it in 10 minutes. pt not moving well for therapy, seems more sleepy. leaning to RT side falling asleep in recliner chair with family at side.
[2021-09-27 14:36] VITALS: BP 127/64; PULSE 84; RESP 18; TEMP 36.6; O2SAT 93
--- NOTE | 2021-09-27 14:58 | NURSING ---
updated daughter, Elizabeth that pt CT scan negative. She said she would notify her mother, she was picking meds up at pharmacy.
[2021-09-27 17:39] VITALS: PULSE 84
--- NOTE | 2021-09-27 17:42 | NURSING ---
pt awakened to eat supper, great mood, wide awake. talkative & joking. pt was lethargic early and had trouble with OT & PT today but after a good nap he feeling good.
[2021-09-27] MEDS: Atorvastatin Calcium 40 MG Tablet PO (22:39)
[2021-09-27] MEDS: Mirtazapine 15 MG Tablet 7.5 MG PO (22:39)
[2021-09-27] MEDS: MELATONIN 10 MG TABLET PO (22:39)
[2021-09-27 23:30] VITALS: PULSE 88; RESP 16; O2SAT 91
--- NOTE | 2021-09-28 02:45 | NURSING ---
Addendum entered by Nori Yu 09/28/21 07:09: Patient continues to have nausea and vomiting, updated MD this AM. Verbal orders for KUB, labs, zofran, and to start antibiotic for positive urine culture. Zofran given, patient vomited large amount 15 minutes after given. Updated daughter Elizabeth @[id number] on patient status and pending tests. She asked to be updated with an important test results. Original Note: Patient feeling nauseated, vomited small amount yellowish fluid. Nausea much better afterwards. Offered umm ruddy or crackers, patient wanted ice chips. Ice chips provided.
--- NOTE | 2021-09-28 05:57 | RAD_ITS ---
EXAM: XR ABDOMEN, 1 VIEW : 1935 CLINICAL INDICATION: Nausea/vomiting/abdominal pain TECHNIQUE: Frontal supine view of the abdomen/pelvis. This report was created using [employer] report generation technology. COMPARISON: None. FINDINGS: LOWER THORAX: No acute pathology. GASTROINTESTINAL TRACT: Dilated small bowel loops measuring up to 5 cm. ORGANS: Unremarkable as visualized. No organomegaly. No abnormal calcifications. BONES/JOINTS: No acute pathology. Bilateral total hip arthroplasties. SOFT TISSUES: No acute pathology. RAD/Abdomen Single View IMPRESSION: Dilated small bowel loops measuring up to 5 cm. Findings likely indicate bowel obstruction. at 0719 Reported and signed by: Reji Cruz MD Electronically Signed: Reji Cruz MD at 7:19 EST ,
[2021-09-28 06:39] LABS: Absolute Neutrophil Count 6.7 X10^3/uL (2.0-7.7); Basophil# 0.02 X10^3/uL; Basophil% 0.3 % (0-1); Eosinophil# 0.11 X10^3/uL; Eosinophils% 1.4 % (0-5); Hematocrit 31.4 % (40-54); Hemoglobin 9.6 g/dL (13.0-16.5); Lymphocyte % 8.8 % (19-41); Mean Corp Hgb Conc 30.6 g/dL (32-36); Mean Corpuscular Hgb 29.9 pg (27.0-32.0); Mean Corpuscular Volume 97.8 fL (80-94); Mean Platelet Vol. 9.4 fl (6.2-12.0); Monocyte# 0.39 X10^3/uL; Monocyte% 4.9 % (0-10); NRBC Flagged by Analyzer 0 % (0-5); Neutrophil # 6.74 X10^3/uL (2.7-7.7); Neutrophil % 84.2 % (47-70); POSITIVE MORPHOLOGY YES; Platelet Count 393 K/mm3 (150-450); RBC Distribution Width CV 18.5 % (11.6-14.6); RBC Distribution Width SD 65.6 fl (35.1-43.9); Red Blood Count 3.21 M/mm3 (4.6-6.2)
[2021-09-28] MEDS: Ondansetron ODT 4 MG Tablet PO (06:39)
[2021-09-28 06:53] LABS: Anion Gap 5 (5-15); BUN 19 mg/dL (7-18); BUN/Creat Ratio 18.4 RATIO (10-20); Calcium,Total 8.8 mg/dL (8.5-10.1); Chloride 107 mmol/L (98-107); Creatinine, Serum 1.03 mg/dL (0.70-1.30); EST Glomerular Filtration Rate 73 mL/min (>60); Est Glom Filt Rate - Afr Amer 88 mL/min (>60); Estimated Creatinine Clearance 49.02 ml/min; Glucose 137 mg/dL (74-106); Potassium 4.7 mmol/L (3.5-5.1); Sodium Level 140 mmol/L (136-145)
[2021-09-28 07:02] LABS: Differential Indicated SCAN CRITERIA MET
[2021-09-28 07:20] LABS: Anisocytosis 1+
--- NOTE | 2021-09-28 07:46 | NURSING ---
Updated Family on patient being sent down to the Emergency Room.
== END 2021-09-28 08:00 | disposition short-term general hospital (02) | DRG 560 ==
PROVIDERS: Admitting Provider Family Medicine Geriatric Medicine; PCP Family Medicine; Visit Provider Family Medicine Geriatric Medicine
DX: S72.002D Fracture of unspecified part of neck of left femur, subsequent encounter for closed fracture with routine healing (principal); K56.609 Unspecified intestinal obstruction, unspecified as to partial versus complete obstruction; I73.9 Peripheral vascular disease, unspecified; I48.91 Unspecified atrial fibrillation; D50.9 Iron deficiency anemia, unspecified; N40.0 Benign prostatic hyperplasia without lower urinary tract symptoms; K21.9 Gastro-esophageal reflux disease without esophagitis; I10 Essential (primary) hypertension; E78.5 Hyperlipidemia, unspecified; E53.8 Deficiency of other specified B group vitamins; I25.10 Atherosclerotic heart disease of native coronary artery without angina pectoris; W19.XXXD Unspecified fall, subsequent encounter; M19.90 Unspecified osteoarthritis, unspecified site; Z23 Encounter for immunization; M97.02XD Periprosthetic fracture around internal prosthetic left hip joint, subsequent encounter; Z96.643 Presence of artificial hip joint, bilateral; R13.10 Dysphagia, unspecified; Z87.891 Personal history of nicotine dependence; H91.93 Unspecified hearing loss, bilateral; Z79.899 Other long term (current) drug therapy; Z79.01 Long term (current) use of anticoagulants; Z79.82 Long term (current) use of aspirin
CPT/HCPCS: 0004A; 36415; 71045; 74018; 80048; 81001; 85025; 85027; 87040; 87077; 87086; 87088; 87186; 87426; 91300; 92507; 92523; 92526; 92610; 97110; 97116; 97162; 97166; 97530; 97535; 97802; J7030; J7050; A4216; J1940

== ENCOUNTER 2021-09-14 06:47 | Outpatient (CLI) | payer MEDICARE, SELFPAY ==
--- NOTE | 2021-09-14 13:26 | CT_ITS ---
STUDY: CT SCAN LOWER EXTREMITY LEFT hip. REASON FOR EXAM: Male, 86 years old. Post op left hip, fever RADIATION DOSAGE (If Supplied By Facility): CTDIvol = ( 19.13 ) mGy, DLP = ( 734.00 ) mGycm. Individualized dose optimization techniques were used for this CT.? TECHNIQUE: Multiple axial tomographic images were obtained without intravenous contrast administration. Coronal and sagittal reconstruction were obtained as well. COMPARISON: None. FINDINGS: The patient is status post right total hip replacement. There is evidence of a thickening of the left iliopsoas muscle as well as the gluteus bebo muscle in keeping with a postoperative hematoma. There is overlying skin thickening and subcutaneous edema at the operative site. CT/Extremity Lower WITH Contrast IMPRESSION: Status post left total hip replacement with postoperative swelling and hematoma involving the left iliopsoas muscle as well as the left bebo gluteus muscle with overlying skin thickening and subcutaneous edema. Electronically Signed: Porter Singh MD at 15:01 EST , Service support ,
== END 2021-09-14 23:59 | disposition short-term general hospital (02) ==
PROVIDERS: PCP Family Medicine; Referring Provider Family Medicine Geriatric Medicine; Visit Provider Family Medicine Geriatric Medicine
DX: R50.82 Postprocedural fever (principal)
CPT/HCPCS: 73701; Q9967

== ENCOUNTER 2021-09-17 09:18 | Outpatient (CLI) | payer MEDICARE, SELFPAY ==
--- NOTE | 2021-09-17 09:22 | VDLE_ITS ---
Reason For Study: Swelling RIGHT LEFT CFV is compressible, spontaneous, phasic, GSV is normal. competent and demonstrates normal CFV is compressible, spontaneous, phasic, augmentation. competent, and demonstrates normal FV is compressible, spontaneous, phasic, augmentation. competent and demonstrates normal FV is compressible, spontaneous, phasic, augmentation. competent and demonstrates normal POP V is compressible, spontaneous, phasic, augmentation. competent and demonstrates normal POP V is compressible, spontaneous, phasic, augmentation. competent and demonstrates normal T/P Trunk is compressible. augmentation. PTV is compressible. T/P Trunk is compressible. RT PerV is compressible. PTV is compressible. GSV previously harvested. LT PerV is compressible. Procedure This is a venous duplex using B-mode, color flow and spectral Doppler. Exam performed portable in patient room. A preliminary report was called and/or faxed to [facility]. VL/Venous Duplex US - Marvel Extrem Interpretation Summary No evidence for acute deep venous thrombosis bilateral lower extremities Surgically harvested right great saphenous vein Patent and compressible left great saphenous vein Ordering Physician: Pipe Damon Referring Physician: David Rios Performed By: Shayy Bojorquez RVT
== END 2021-09-17 23:59 | disposition short-term general hospital (02) ==
LOC: CVS 09:19
PROVIDERS: PCP Family Medicine; Referring Provider Family Medicine Geriatric Medicine; Visit Provider Family Medicine Geriatric Medicine
DX: M79.89 Other specified soft tissue disorders (principal)
CPT/HCPCS: 93970

== ENCOUNTER 2021-09-26 18:29 | Outpatient (CLI) | payer MEDICARE, SELFPAY | END 2021-09-26 23:59 | disposition short-term general hospital (02) | LOC: CT 18:30 | PROVIDERS: PCP Family Medicine; Visit Provider Family Medicine Geriatric Medicine | DX: S09.90XA Unspecified injury of head, initial encounter (principal) ==

== ENCOUNTER 2021-09-27 13:36 | Outpatient (CLI) | payer MEDICARE, SELFPAY ==
--- NOTE | 2021-09-27 13:39 | CT_ITS ---
STUDY: CT BRAIN WITHOUT CONTRAST REASON FOR EXAM: Male, 86 years old. HEAD INJURY RADIATION DOSAGE (If Supplied By Facility): CTDIvol = ( 44.99 ) mGy, DLP = ( 880.47 ) mGycm TECHNIQUE: Transaxial CT imaging of the brain was performed without administration of intravenous contrast material. Individualized dose optimization techniques were used for this CT. COMPARISON: No relevant priors. FINDINGS: Normal soft tissue structures. Normal calvarium. There is mild cerebral atrophy with widening of the extra-axial spaces and ventricular dilatation. There are areas of decreased attenuation within the white matter tracts of the supratentorial brain, consistent with microvascular disease changes. Normal basal ganglia and thalami. Normal brainstem. Normal cerebellum. There is no intracranial hemorrhage. There are no findings of an acute ischemic infarction. Atherosclerotic plaque formation of the vertebral arteries and cavernous portions of the internal carotid arteries bilaterally Normal visualized paranasal sinuses. CT/Brain/Head without Contrast IMPRESSION: Chronic involutional changes of the brain. Electronically Signed: Porter Singh MD at 13:56 EST ,
== END 2021-09-27 23:59 | disposition short-term general hospital (02) ==
LOC: CT 13:37
PROVIDERS: PCP Family Medicine; Referring Provider Family Medicine Geriatric Medicine; Visit Provider Family Medicine Geriatric Medicine
DX: S09.90XA Unspecified injury of head, initial encounter (principal)
CPT/HCPCS: 70450

== ENCOUNTER 2021-09-28 08:15 | Inpatient (IN) | payer MEDICARE, SELFPAY ==
[2021-09-28] VITALS (9 sets, daily range): BP systolic 130–147; BP diastolic 54–71; PULSE 56–92; RESP 16–20; TEMP 36.6–36.8; O2SAT 94–97; BMI 28.7; BMI 26.8
--- NOTE | 2021-09-28 08:42 | CT_ITS ---
STUDY: CT ABDOMEN AND PELVIS WITH CONTRAST REASON FOR EXAM: Male, 86 years old. Abdominal Pain. Vomiting since last night. RADIATION DOSAGE (If Supplied By Facility): CTDIvol = ( 22.28 ) mGy, DLP = ( 1014.41 ) mGycm TECHNIQUE: Transaxial images were obtained from the dome of the diaphragm to the symphysis pubis without oral contrast. IV 100mL Isovue-300 was administered. Sagittal and coronal images were reconstructed. Individualized dose optimization techniques were used for this CT. COMPARISON: None. FINDINGS: Tiny left pleural effusion with bibasilar atelectasis slightly more prominent on the left side. Mildly calcified pleural plaques at the left lung base. A dual-chamber pacemaker is seen. Evidence of coronary artery calcification. Normal liver. Normal gallbladder and extrahepatic biliary system. Normal spleen. Normal pancreas. Normal bilateral adrenal glands. There is a 3.8 cm x 2.6 cm cyst in the anterior upper pole of the left kidney. 1.2 cm cyst in the lower pole of the right kidney. There is a 8.6 mm calculus in the upper pole calyx of the left kidney. Adjacent to this, there is a 2 mm calculus. There is a small hiatal hernia. There are dilated loops of the small intestine with a non-distended colon consistent with a small bowel obstruction. The transition point appears to be in the distal portion of the small bowel. There are multiple colonic diverticula consistent with diverticulosis. The appendix is visualized and appears normal. There is diffuse atherosclerotic calcification of the abdominal aorta and its major visceral branches. There is dense atherosclerotic plaque involving the origin and proximal portion of the superior mesenteric artery., without a demonstrated aneurysm. Normal inferior vena cava. Normal retroperitoneum. Normal urinary bladder. Normal abdominal wall. There are diffuse degenerative changes of the visualized lumbar spine. There is evidence of bilateral total hip replacements causing beam hardening artifacts in the pelvis limiting the assessment. CT/Abdomen/Pelvis W IV Cont ONLY IMPRESSION: Findings in keeping with a small bowel obstruction with the transition point in the distal small bowel. Marked degree of atherosclerotic calcification of the abdominal aorta and major visceral branches including the superior mesenteric artery. Right renal cysts. Nonobstructive left intrarenal calculus. Small left pleural effusion with bibasilar atelectasis and focal calcific plaques on the left side. Electronically Signed: Porter Singh MD at 9:43 EST ,
--- NOTE | 2021-09-28 08:43 | EDS_ITS ---
HPI HPI - GI History of Present Illness Chief Complaint: Abd Pain Narrative Narrative: Patient presents from TCU with abdominal pain and distention, nausea and vomiting. He states that he has been admitted there status post hip surgery. Beginning last evening he began having nausea and vomiting and vomited 5 times. He did have a bowel movement yesterday, and states he is still having flatulence but he is not going as much. He complains of diffuse abdominal pain and mild distention. He denies fevers or chills. No other symptoms. He states he had an x-ray performed this morning. He presents today with results of the single view abdomen with dilated small bowel loops measuring up to 5 cm. [facility] Medical History Arthritis Atherosclerosis of coronary artery of [place] without angina pectoris Chronic atrial flutter Depression Essential hypertension Hearing loss, left Hearing loss, right History of [place] (myocardial infarction) (1983) Hyperlipidemia Left ventricular hypertrophy New onset atrial flutter (02/08/20) Obesity Osteoarthritis Osteoporosis Periprosthetic fracture around internal prosthetic left hip joint Venous insufficiency of both lower extremities Home Medications amlodipine 10 mg PO DAILY 06/23/13 [History Last Taken 08/13/21] pentoxifylline 400 mg PO BID 06/23/13 [History Last Taken 08/13/21] rosuvastatin 20 mg PO QHS 06/23/13 [History Last Taken Unknown] metoprolol tartrate 100 mg-hydrochlorothiazide 25 mg tablet 1 tab PO DAILY 02/24/20 [History Last Taken 08/13/21] multivitamin 1 tab PO DAILY 02/24/20 [History Last Taken Unknown] omega-3 fatty acids-fish oil 360 mg-1,200 mg capsule 1 cap PO DAILY 02/24/20 [History Last Taken Unknown] ramipril 10 mg capsule 10 mg PO DAILY cap 02/24/20 [History Last Taken 08/13/21] furosemide 20 mg tablet 20 mg PO DAILY PRN PRN tab 07/19/21 [History Last Taken Unknown] famotidine 20 mg PO DAILY 09/08/21 [History Last Taken Unknown] ferrous sulfate [FeroSul] 325 mg PO BID 09/08/21 [History Last Taken Unknown] folic acid 1 mg PO DAILY 09/08/21 [History Last Taken Unknown] sennosides [Senokot] 8.6 mg PO BID PRN 09/08/21 [History Last Taken Unknown] tramadol 50 mg PO Q6H PRN PRN 09/08/21 [History Last Taken Unknown] doxycycline monohydrate 100 mg PO BID #28 cap 09/10/21 [Rx Last Taken Unknown] Eliquis 2.5 mg PO BID 10 Days #20 tab 09/25/21 [Rx Last Taken Unknown] acetaminophen 1,000 mg PO Q8 #0 tab 09/25/21 [Rx Last Taken Unknown] aspirin 81 mg PO DAILY #0 tab 09/25/21 [Rx Last Taken Unknown] metoprolol tartrate 25 mg PO BID 30 Days #60 tab 09/25/21 [Rx Last Taken Unknown] pantoprazole 40 mg PO DAILY 30 Days #30 tab 09/25/21 [Rx Last Taken Unknown] polysaccharide iron complex [Ferrex 150] 150 mg PO BIDCM 30 Days #60 cap 09/25/21 [Rx Last Taken Unknown] Allergy/AdvReac Type Severity Reaction Status Date / Time No Known Drug Allergies Allergy NONE Verified 09/28/21 08:22 Family History Mother CAD (coronary artery disease) Sister Cancer lung Surgical History H/O coronary artery bypass surgery (1983) History of appendectomy History of carpal tunnel release History of left heart catheterization (08/13/21) History of right hip replacement History of surgical removal of skin lesion History of total bilateral knee replacement History of total left hip replacement Social History household members: spouse Smoking Status: Former smoker alcohol intake: never substance use type: does not use ROS ROS ED ROS Narrative Constitutional: No fever, no chills. HEENT: No sore throat. No neck pain. No loss of vision. No rhinorrhea. Cardiovascular: No chest pain. No palpitations. No pedal edema. Respiratory: No cough, no shortness of breath. Abdominal: Diffuse abdominal pain. Positive nausea. 5 episodes of vomiting. No hematemesis. Decreased bowel movements. Positive flatulence. Genitourinary: No dysuria. No hematuria. Musculoskeletal: No myalgias. No arthralgias. Neurologic: No headaches. No dizziness. No lightheadedness. Skin: No rash. No change in color. Psychiatric: No depression. No anxiety. EXAM Physical Exam Narrative Exam Narrative: Afebrile. Vital signs noted. HEENT: Normocephalic. Atraumatic. PERRL, EOMI. Neck soft and supple. No point tenderness or step off. Cardiovascular: Irregularly irregular rhythm with occasional extrasystoles, no murmurs, rubs, or gallops appreciated. Respiratory: No tachypnea. Lungs clear to auscultation bilaterally. Gastrointestinal: Abdomen soft, nontender, with decreased bowel sounds. Mild distention. No rebound or guarding. Neurological: Awake. Alert. Nonfocal, nonlateralizing. Skin: No rash. Normal color. No pallor. Musculoskeletal: No pedal edema. Full range of motion extremities. Const Vital Signs: 09/28/21 08:16 09/28/21 08:19 09/28/21 10:27 Temperature 98.2 F 98.2 F Temperature Source Oral Oral Pulse Rate 64 64 56 L Respiratory Rate 19 H 19 H 18 Blood Pressure 147/71 H 147/71 H 132/66 H Blood Pressure Mean 96 96 88 Pulse Ox 96 96 97 Oxygen Delivery Method Room Air Room Air MDM MDM MDM Narrative Medical decision making narrative: I reviewed his x-ray results. Comprehensive work-up was pursued. I will obtain laboratory work and CT with IV contrast. Patient has a normal white count of 7.9, hemoglobin stable at 9.9, platelet count normal at 394. Electrolyte panel is grossly unremarkable with the exception of BUN of 20 with a normal creatinine of 0.9. Lipase normal at 84. CT of the abdomen and pelvis with IV contrast are consistent with small bowel obstruction with a transition point in the distal small bowel. NG tube will be placed. I discussed the patient with general surgery, Dr. Pearson who will be on consult but suggested medicine admit given his multiple medical problems. I then discussed the patient with Dr. Feliciano for admission. Patient is in stable condition. Lab Data Attestation: I reviewed the patient's lab results. Labs: Laboratory Results - last 24 hr 09/28/21 09/28/21 08:25 08:25 WBC 7.9 RBC 3.35 L Hgb 9.9 L Hct 32.7 L MCV 97.6 H MCH 29.6 MCHC 30.3 L RDW Std Deviation 64.9 H RDW Coeff of Denise 18.4 H Plt Count 394 MPV 9.8 Immature Gran % (Auto) 0.600 Neut % (Auto) 87.9 H Lymph % (Auto) 6.7 L [place] % (Auto) 4.3 Eos % (Auto) 0.4 Baso % (Auto) 0.1 Absolute Neuts (auto) 7.0 Absolute Lymphs (auto) 0.53 L Nucleated RBC % 0 Differential Comment COMMENT Sodium 140 Potassium 4.5 Chloride 106 Carbon Dioxide 30.0 Anion Gap 4 L BUN 20 H Creatinine 0.96 Estim Creat Clear Calc 52.60 Est GFR (MDRD) Af Amer 96 Est GFR (MDRD) Non-Af 80 BUN/Creatinine Ratio 20.9 H Glucose 128 H Calcium 8.8 Total Bilirubin 0.50 AST 38 H ALT 30 Alkaline Phosphatase 306 H Total Protein 7.7 Albumin 2.6 L Globulin 5.1 H Albumin/Globulin Ratio 0.5 L Lipase 84 Radiography Diagnostic Testing: Clinical Impression(s) from Imaging Studies Abdomen/Pelvis CT 09/28/21 08:42 IMPRESSION: Findings in keeping with a small bowel obstruction with the transition point in the distal small bowel. Marked degree of atherosclerotic calcification of the abdominal aorta and major visceral branches including the superior mesenteric artery. Right renal cysts. Nonobstructive left intrarenal calculus. Small left pleural effusion with bibasilar atelectasis and focal calcific plaques on the left side. Electronically Signed: Porter Singh MD at 9:43 EST , Discharge Plan Dx/Rx/DC Orders Clinical Impression: Atrial fibrillation, Debility, Small bowel obstruction Disposition Disposition: Acute Care Hospital [facility]
[2021-09-28 08:51] LABS: Absolute Lymphocyte Count 0.53 X10^3/uL (0.83-4.51); Basophil# 0.01 X10^3/uL; Basophil% 0.1 % (0-1); Eosinophil# 0.03 X10^3/uL; Eosinophils% 0.4 % (0-5); Hematocrit 32.7 % (40-54); Hemoglobin 9.9 g/dL (13.0-16.5); Lymphocyte # 0.53 X10^3/ul (0.83-4.51); Lymphocyte % 6.7 % (19-41); Mean Corp Hgb Conc 30.3 g/dL (32-36); Mean Corpuscular Hgb 29.6 pg (27.0-32.0); Mean Corpuscular Volume 97.6 fL (80-94); Mean Platelet Vol. 9.8 fl (6.2-12.0); Monocyte# 0.34 X10^3/uL; Monocyte% 4.3 % (0-10); NRBC Flagged by Analyzer 0 % (0-5); Neutrophil # 6.97 X10^3/uL (2.7-7.7); Neutrophil % 87.9 % (47-70); POSITIVE DIFFERENTIAL YES; Platelet Count 394 K/mm3 (150-450); RBC Distribution Width CV 18.4 % (11.6-14.6); RBC Distribution Width SD 64.9 fl (35.1-43.9); Red Blood Count 3.35 M/mm3 (4.6-6.2); White Blood Count 7.9 K/mm3 (4.4-11.0)
[2021-09-28 08:53] LABS: Differential Indicated SCAN CRITERIA MET
[2021-09-28 09:15] LABS: ALB/GLOB Ratio 0.5 RATIO (0.9-2.4); AST(SGOT) 38 U/L (15-37); Alanine Aminotransfer ALT/SGPT 30 U/L (16-61); Albumin, Serum 2.6 g/dL (3.2-5.0); Alkaline Phosphatase 306 U/L (45-117); Anion Gap 4 (5-15); BUN 20 mg/dL (7-18); BUN/Creat Ratio 20.9 RATIO (10-20); Calcium,Total 8.8 mg/dL (8.5-10.1); Chloride 106 mmol/L (98-107); Creatinine, Serum 0.96 mg/dL (0.70-1.30); EST Glomerular Filtration Rate 80 mL/min (>60); Est Glom Filt Rate - Afr Amer 96 mL/min (>60); Globulin 5.1 g/dL (2.2-4.2); Glucose 128 mg/dL (74-106); Lipase 84 U/L (73-393); Potassium 4.5 mmol/L (3.5-5.1); Protein, Total 7.7 g/dL (6.4-8.2); Sodium Level 140 mmol/L (136-145)
--- NOTE | 2021-09-28 10:31 | NURSING ---
DR MANCILLA IN ER
--- NOTE | 2021-09-28 10:49 | PCM.HP.STD ---
HPI - General General Date of Admission: 09/28/21 Date of Service: 09/28/21 Chief Complaint: Nausea, vomiting, not passing adequate flatus and mild abdominal pain. HPI Narrative CARIDAD WARD, is a 86 M was sent to ER from TCU after he started having abdominal pain, distention nausea vomiting. Patient has been in TCU for rehab after left hip ORIF left proximal femur with revision of left THR both components. Patient had periprosthetic [place] B2 femur fracture and was admitted on 09/08/21. Patient started having nausea and vomiting for 1 day about 4-5 times. Patient is not a good historian and could not tell exact content but was not blood. Currently, patient denies any abdominal pain and he states it has resolved. He could not tell me clearly whether he had abdominal pain in the last 2 to 3 days or 1 week but might be discomfort or mild abdominal pain. It seems patient did not had severe abdominal pain. He had small bowel movement yesterday which was not good or adequate not passing gas adequately for 2 to 3 days. He had appendectomy through midline incision in the past. In ED CT abdomen was done individually reviewed and findings consistent with small bowel obstruction with transition point in distal small bowel. Also noticed mild degree of atherosclerotic calcification of abdominal aorta and major visceral arteries. Patient does not have leukocytosis. [facility] Medical History Arthritis Atherosclerosis of coronary artery of [place] heart without angina pectoris Chronic atrial flutter Depression Essential hypertension Hearing loss, left Hearing loss, right History of [place] (myocardial infarction) (1983) Hyperlipidemia Left ventricular hypertrophy New onset atrial flutter (02/08/20) Obesity Osteoarthritis Osteoporosis Periprosthetic fracture around internal prosthetic left hip joint Venous insufficiency of both lower extremities Home Medications amlodipine 10 mg PO DAILY 06/23/13 [History Last Taken 08/13/21] pentoxifylline 400 mg PO BID 06/23/13 [History Last Taken 08/13/21] rosuvastatin 20 mg PO QHS 06/23/13 [History Last Taken Unknown] metoprolol tartrate 100 mg-hydrochlorothiazide 25 mg tablet 1 tab PO DAILY 02/24/20 [History Last Taken 08/13/21] multivitamin 1 tab PO DAILY 02/24/20 [History Last Taken Unknown] omega-3 fatty acids-fish oil 360 mg-1,200 mg capsule 1 cap PO DAILY 02/24/20 [History Last Taken Unknown] ramipril 10 mg capsule 10 mg PO DAILY cap 02/24/20 [History Last Taken 08/13/21] furosemide 20 mg tablet 20 mg PO DAILY PRN PRN tab 07/19/21 [History Last Taken Unknown] famotidine 20 mg PO DAILY 09/08/21 [History Last Taken Unknown] ferrous sulfate [FeroSul] 325 mg PO BID 09/08/21 [History Last Taken Unknown] folic acid 1 mg PO DAILY 09/08/21 [History Last Taken Unknown] sennosides [Senokot] 8.6 mg PO BID PRN 09/08/21 [History Last Taken Unknown] tramadol 50 mg PO Q6H PRN PRN 09/08/21 [History Last Taken Unknown] doxycycline monohydrate 100 mg PO BID #28 cap 09/10/21 [Rx Last Taken Unknown] Eliquis 2.5 mg PO BID 10 Days #20 tab 09/25/21 [Rx Last Taken Unknown] acetaminophen 1,000 mg PO Q8 09/28/21 [History Last Taken Unknown] aspirin 81 mg PO DAILY 09/28/21 [History Last Taken Unknown] metoprolol tartrate 25 mg PO BID 09/28/21 [History Last Taken Unknown] pantoprazole 40 mg PO DAILY 09/28/21 [History Last Taken Unknown] polysaccharide iron complex [Ferrex 150] 150 mg PO BIDCM 09/28/21 [History Last Taken Unknown] Allergy/AdvReac Type Severity Reaction Status Date / Time No Known Drug Allergies Allergy NONE Verified 09/28/21 08:22 Family History Mother CAD (coronary artery disease) Sister Cancer lung Surgical History H/O coronary artery bypass surgery (1983) History of appendectomy History of carpal tunnel release History of left heart catheterization (08/13/21) History of right hip replacement History of surgical removal of skin lesion History of total bilateral knee replacement History of total left hip replacement Social History household members: spouse Smoking Status: Former smoker alcohol intake: never substance use type: does not use ROS ROS Narrative Constitutional: Reports fatigue and weakness. No fever or chills HEENT: Reports systems reviewed and no addt'l complaints, except as documented Respiratory/Chest: CABG scar. Denies chest pain, shortness of breath at rest or with exertion Gastrointestinal: As mentioned in HPI. Genitourinary: Denies burning urination or new urinary tract symptoms Musculoskeletal: Reports joint pain and limited range of motion. Patient recuperating from recent left hip periprosthetic fracture Neurologic: Denies seizure-like activity skin: Chronic skin depigmentation in both lower legs. Left heel ulcer. Endocrinology: Reports systems reviewed and no addt'l complaints, except as documented Hematologic/Lymphatic: Reports systems reviewed and no addt'l complaints, except as documented Rest 14 ROS are negative except as mentioned in HPI Vital Signs Vital Signs Vital Signs: 09/28/21 08:16 09/28/21 08:19 09/28/21 10:27 Temperature 98.2 F 98.2 F Temperature Source Oral Oral Pulse Rate 64 64 56 L Respiratory Rate 19 H 19 H 18 Blood Pressure 147/71 H 147/71 H 132/66 H Blood Pressure Mean 96 96 88 Pulse Ox 96 96 97 Oxygen Delivery Method Room Air Room Air Weight Weight: 183 lb 3.266 oz Body Mass Index (BMI) 28.7 Physical Exam Narrative General: Alert, Oriented x3, Cooperative HEENT: Atraumatic, PERRLA, EOMI, Normocephalic Oral: Edentulous Neck: Supple, No JVD, Negative Carotid Bruits Lungs: Air entry diminished in bilateral lung bases. No crepitation/rhonchi Cardiovascular: Irregular rate and rhythm, A. fib, normal S1, Normal S2, CABG scar, systolic murmur LLSB Abdomen: . NG tube. Gastric aspirate. Bowel Sounds sluggish, Soft, mild tenderness over left and right lower quadrants. Mild distention upper abdomen. : No renal angle tenderness. No suprapubic tenderness. Extremities: Bilateral ankle edema, Capillary Refill Less than 3 Seconds Skin: Left heel ulcer, decubitus ulcer, since admission. Venous hypertensive changes. Musculoskeletal: No Tenderness to Palpation of Joints or Extremities Neurological: Cranial nerves II-XII grossly intact, DTR 2+/4 and Symmetrical, Neuro grossly intact Psych/Mental Status: Normal Affect, Appropriate. Results Lab / Micro Data Result Diagrams: 09/28/21 08:25 09/28/21 08:25 Labs: Laboratory Results - last 24 hr 09/28/21 08:25: WBC 7.9, RBC 3.35 L, Hgb 9.9 L, Hct 32.7 L, MCV 97.6 H, MCH 29.6, MCHC 30.3 L, RDW Std Deviation 64.9 H, RDW Coeff of Denise 18.4 H, Plt Count 394, MPV 9.8, Immature Gran % (Auto) 0.600, Neut % (Auto) 87.9 H, Lymph % (Auto) 6.7 L, [place] % (Auto) 4.3, Eos % (Auto) 0.4, Baso % (Auto) 0.1, Absolute Neuts (auto) 7.0, Absolute Lymphs (auto) 0.53 L, Nucleated RBC % 0, Differential Comment COMMENT 09/28/21 08:25: Sodium 140, Potassium 4.5, Chloride 106, Carbon Dioxide 30.0, Anion Gap 4 L, BUN 20 H, Creatinine 0.96, Estim Creat Clear Calc 52.60, Est GFR (MDRD) Af Amer 96, Est GFR (MDRD) Non-Af 80, BUN/Creatinine Ratio 20.9 H, Glucose 128 H, Calcium 8.8, Total Bilirubin 0.50, AST 38 H, ALT 30, Alkaline Phosphatase 306 H, Total Protein 7.7, Albumin 2.6 L, Globulin 5.1 H, Albumin/Globulin Ratio 0.5 L, Lipase 84 Radiology Impression Abdomen/Pelvis CT 09/28/21 08:42 IMPRESSION: Findings in keeping with a small bowel obstruction with the transition point in the distal small bowel. Marked degree of atherosclerotic calcification of the abdominal aorta and major visceral branches including the superior mesenteric artery. Right renal cysts. Nonobstructive left intrarenal calculus. Small left pleural effusion with bibasilar atelectasis and focal calcific plaques on the left side. Electronically Signed: Porter Singh MD at 9:43 EST , Assessment & Plan Assessment/Plan (1) Small bowel obstruction: PLAN: 1. Distal small bowel obstruction: Exact etiology unclear possible adhesions: Patient is being admitted in PCU. NG tube aspirate to wall suction. IV fluid, n.p.o. Patient seen by surgeon Dr Pearson. Eliquis is on hold in case if patient needs surgery. Pain controlled. Surgeon to [facility] surgery tomorrow to see the contrast flow through the bowel. 2. Acute periprosthetic fracture of left proximal femur status post total hip replacement on 09/09. DVT prophylaxis to continue. PT and OT ordered. 3. Paroxysmal A. fib, chronic anemia: Twelve-lead EKG ordered. Patient heart rate is around 60/min, regular. Hemoglobin 9.9/32.7%. Platelet count is 3 94,000. 4. CKD stage IIIa: Patient had ARCHIE during previous hospitalization. Current BUN/creatinine 20/0.96. ARCHIE resolved. 5. Possible history of dysphagia: There was suspicion of dysphagia during previous hospitalization as patient was coughing on diet. No modified barium swallow on imaging. Speech therapist recommended. 6. Coronary artery disease status post CABG, hypertension, dyslipidemia, peripheral arterial disease: CT abdomen also showed atherosclerotic calcification of major visceral arteries. Patient underwent cardiac cath on 08/13/2021 for abnormal stress has perioperative risk stratification. Patent MARTINEZ to LAD but occlusion of saphenous vein graft. Medical therapy. Oral medications on hold. Continue IV replacement as needed to control heart rate and blood pressure. 7. GERD: On IV PPI 8. DVT prophylaxis: Eliquis on hold. Heparin 5000 units subcutaneous every 8 hourly for prophylaxis and anticoagulation effect can easily be reversed if patient needs surgery. SCD Living will/advanced directive/end of life care: Patient does have living will or advanced directive. His daughter is power of highway worker for health. After discussion of benefits/risks procedures involved with full code, DNR CC arrest and DNR CC, the patient said he does not want to be on life support machines. He does not want intubation, ventilator or CPR. Patient doesn't want artificial life support including intubation, tube feed, ventilator and/chest compression, central venous catheter, vasopressor and DC shock if needed Total time spent in [id number] encounter in discussion of advanced directive 16 minutes. Charges/Coding Visit Charges Inpatient E&M: 28992 Init Hosp L3 Procedures Hospitalists Procedures: 06905 Advncd Care Plan 30 Min
--- NOTE | 2021-09-28 10:51 | NURSING ---
103 [facility]OV[facility] SMALL BOWEL OBSTRUCTION
--- NOTE | 2021-09-28 10:52 | CM.ED ---
MARGOTH Note MARGOTH received update voice mail from TCU MARGOTH Brown. Patient was from TCU. She reports that patient has been cut off from insurance and the plan is for discharge home. Patient can not return to TCU if he is discharged. MARGOTH spoke to Adelaide Harris RN . She advised that patient will be admitted for small bowel obstruction. MARGOTH called Vicki Brown and updated her that patient will be admitted. MARGOTH called Vicki later with room assignment for patient. MARGOTH remains available if needs arise. Plan: Admit Lisa MORALES
[2021-09-28 10:59] LABS: Magnesium 2.6 mg/dL (1.6-2.6)
--- NOTE | 2021-09-28 11:05 | CON.PCM.SX_ITS ---
Assessment & Plan Assessment/Plan (1) Small bowel obstruction: PLAN: The patient was transferred from the TCU with nausea and vomiting. CT scan revealed small bowel stricture with transition zone in the right lower quadrant. Patient has had open appendectomy in the past. Patient is not having any abdominal pain unless you press on his abdomen and he only reports to be mild. His white count is normal. At this time I recommend NG decompression for 24 hours. Tomorrow I will order a contrast study to see if the contrast flows through. Recommend holding Eliquis if possible for possible surgery. Alvin Pearson MD Pager: [facility] [address] [place] [address], [address] [place] [address] Office: HPI Consult Data Date of Consult: 09/28/21 HPI Narrative HPI Narrative: CARIDAD WARD, is a 86 M who presents to the [facility] the transitional care unit with abdominal pain and nausea vomiting. Patient developed nausea and vomiting and he has not passed gas since yesterday. He is not complaining of abdominal pain but is distended. Patient was in TCU for hip surgery which occurred on September 09. Patient is never had a bowel obstruction that he knows about but he has had open appendectomy in the past. [facility] Medical History Arthritis Atherosclerosis of coronary artery of [place] heart without angina pectoris Chronic atrial flutter Depression Essential hypertension Hearing loss, left Hearing loss, right History of [place] (myocardial infarction) (1983) Hyperlipidemia Left ventricular hypertrophy New onset atrial flutter (02/08/20) Obesity Osteoarthritis Osteoporosis Periprosthetic fracture around internal prosthetic left hip joint Venous insufficiency of both lower extremities Home Medications amlodipine 10 mg PO DAILY 06/23/13 [History Last Taken 08/13/21] pentoxifylline 400 mg PO BID 06/23/13 [History Last Taken 08/13/21] rosuvastatin 20 mg PO QHS 06/23/13 [History Last Taken Unknown] metoprolol tartrate 100 mg-hydrochlorothiazide 25 mg tablet 1 tab PO DAILY 02/24/20 [History Last Taken 08/13/21] multivitamin 1 tab PO DAILY 02/24/20 [History Last Taken Unknown] omega-3 fatty acids-fish oil 360 mg-1,200 mg capsule 1 cap PO DAILY 02/24/20 [History Last Taken Unknown] ramipril 10 mg capsule 10 mg PO DAILY cap 02/24/20 [History Last Taken 08/13/21] furosemide 20 mg tablet 20 mg PO DAILY PRN PRN tab 07/19/21 [History Last Taken Unknown] famotidine 20 mg PO DAILY 09/08/21 [History Last Taken Unknown] ferrous sulfate [FeroSul] 325 mg PO BID 09/08/21 [History Last Taken Unknown] folic acid 1 mg PO DAILY 09/08/21 [History Last Taken Unknown] sennosides [Senokot] 8.6 mg PO BID PRN 09/08/21 [History Last Taken Unknown] tramadol 50 mg PO Q6H PRN PRN 09/08/21 [History Last Taken Unknown] doxycycline monohydrate 100 mg PO BID #28 cap 09/10/21 [Rx Last Taken Unknown] Eliquis 2.5 mg PO BID 10 Days #20 tab 09/25/21 [Rx Last Taken Unknown] acetaminophen 1,000 mg PO Q8 #0 tab 09/25/21 [Rx Last Taken Unknown] aspirin 81 mg PO DAILY #0 tab 09/25/21 [Rx Last Taken Unknown] metoprolol tartrate 25 mg PO BID 30 Days #60 tab 09/25/21 [Rx Last Taken Unknown] pantoprazole 40 mg PO DAILY 30 Days #30 tab 09/25/21 [Rx Last Taken Unknown] polysaccharide iron complex [Ferrex 150] 150 mg PO BIDCM 30 Days #60 cap 09/25/21 [Rx Last Taken Unknown] Allergy/AdvReac Type Severity Reaction Status Date / Time No Known Drug Allergies Allergy NONE Verified 09/28/21 08:22 Family History Mother CAD (coronary artery disease) Sister Cancer lung Surgical History H/O coronary artery bypass surgery (1983) History of appendectomy History of carpal tunnel release History of left heart catheterization (08/13/21) History of right hip replacement History of surgical removal of skin lesion History of total bilateral knee replacement History of total left hip replacement Social History household members: spouse Smoking Status: Former smoker alcohol intake: never substance use type: does not use ROS Constitutional Constitutional: Denies anorexia or fever(s) ENT HEENT: Denies abnormal hearing Cardiovascular Cardiovascular: Denies chest pain Respiratory/Chest Respiratory/Chest: Denies cough Gastrointestinal Gastrointestinal: Reports abdominal pain, nausea and vomiting Musculoskeletal Musculoskeletal: Denies back pain Integumentary Integumentary: Denies new lesions Neurologic Neurologic: Denies abnormal gait Psychiatric Psychiatric: Denies anxiety Endocrine Endocrinology: Denies flushing Physical Exam Const alert and oriented x3 Eyes PERRL Resp normal respiratory effort and normal air movement Cardio regular rate and regular rhythm Rate: regular rate Rhythm: regular rhythm GI soft to palpation Inspection: abdominal distention Palpation: tender Lab / Micro Data Result Diagrams: 09/28/21 08:25 09/28/21 08:25 Labs: Laboratory Results - last 24 hr 09/28/21 08:25: WBC 7.9, RBC 3.35 L, Hgb 9.9 L, Hct 32.7 L, MCV 97.6 H, MCH 29.6, MCHC 30.3 L, RDW Std Deviation 64.9 H, RDW Coeff of Denise 18.4 H, Plt Count 394, MPV 9.8, Immature Gran % (Auto) 0.600, Neut % (Auto) 87.9 H, Lymph % (Auto) 6.7 L, [place] % (Auto) 4.3, Eos % (Auto) 0.4, Baso % (Auto) 0.1, Absolute Neuts (auto) 7.0, Absolute Lymphs (auto) 0.53 L, Nucleated RBC % 0, Differential Comment COMMENT 09/28/21 08:25: Sodium 140, Potassium 4.5, Chloride 106, Carbon Dioxide 30.0, Anion Gap 4 L, BUN 20 H, Creatinine 0.96, Estim Creat Clear Calc 52.60, Est GFR (MDRD) Af Amer 96, Est GFR (MDRD) Non-Af 80, BUN/Creatinine Ratio 20.9 H, Glucose 128 H, Calcium 8.8, Total Bilirubin 0.50, AST 38 H, ALT 30, Alkaline Phosphatase 306 H, Total Protein 7.7, Albumin 2.6 L, Globulin 5.1 H, Albumin/Globulin Ratio 0.5 L, Lipase 84 09/28/21 08:25: Magnesium 2.6 Radiology Impression Abdomen/Pelvis CT 09/28/21 08:42 IMPRESSION: Findings in keeping with a small bowel obstruction with the transition point in the distal small bowel. Marked degree of atherosclerotic calcification of the abdominal aorta and major visceral branches including the superior mesenteric artery. Right renal cysts. Nonobstructive left intrarenal calculus. Small left pleural effusion with bibasilar atelectasis and focal calcific plaques on the left side. Electronically Signed: Porter Singh MD at 9:43 EST ,
[2021-09-28 11:06] LABS: Phosphorus 3.2 mg/dL (2.5-4.9)
[2021-09-28] MEDS: Lidocaine 4% 5 ML Ampul 2 ML INHALATION (11:38)
[2021-09-28] MEDS: Oxymetazoline 0.05% 1 SPRAY SPRAY.BTL 2 SPRAY NASAL (11:45)
--- NOTE | 2021-09-28 11:57 | RAD_ITS ---
STUDY: X-RAY - ABDOMEN/PELVIS REASON FOR EXAM: Male, 86 years old. NG Insertion TECHNIQUE: AP supine and decubitus views of the abdomen and pelvis. COMPARISON: Comparison is made with prior study done earlier today. FINDINGS: A nasogastric tube has been placed. The tip is in the fundal portion of the stomach. There are dilated loops of the small intestine with a non-distended colon consistent with a small bowel obstruction. The visualized liver, spleen and kidneys are grossly normal in size and morphology. Normal soft tissue structures. There are diffuse degenerative changes of the visualized lumbar spine. RAD/Abdomen Single View (Portable) IMPRESSION: The tip of the nasogastric tube is in the fundal portion of the stomach. Electronically Signed: Porter Singh MD at 12:25 EST ,
[2021-09-28] MEDS: Lactated Ringers 1,000 ML 75 ML IV ×2 (13:55→23:46)
[2021-09-28] MEDS: Heparin Injection (Vial) 5,000 UNIT/ML VIAL 5000 UNIT SC ×2 (13:55→21:56)
--- NOTE | 2021-09-28 13:55 | PCS.PANDOC ---
PANDEMIC DOCUMENTATION INITIATED: Date: 04/16/2021 Time: 190
--- NOTE | 2021-09-28 14:07 | EKG12_ITS ---
Test Reason : AFIB Blood Pressure : / mmHG Vent. Rate : 058 BPM Atrial Rate : 058 BPM P-R Int : 248 ms QRS Dur : 146 ms QT Int : 476 ms P-R-T Axes : 090 258 051 degrees QTc Int : 467 ms Suspect arm lead reversal, interpretation assumes no reversal Sinus bradycardia with 1st degree A-V block with Blocked Premature atrial complexes Right bundle branch block Abnormal ECG When compared with ECG of 08-SEP-2021 14:34, Premature atrial complexes are now Present Criteria for Septal infarct are no longer Present Confirmed by VIOLA KNOTT, ANI ([id number]), story editor KANG HWANG ([id number]) on 10/02/2021 8:48:00 AM Referred By: GEOVANY Confirmed By:ANI ROD MD
--- NOTE | 2021-09-28 15:30 | CASEMGMT ---
ANÍBAL CM readmission note: Prior admission: Pt admitted 09/08/21 for Lt intertrochanteric fracture. Pt lived @ home w/his who is supportive and they helped each other out w/ADL's. Daughter, Elizabeth, lives nearby. Pt had mechanical fall @ home and landed on his newly operated left hip. (Pt had just been discharged home from [facility] after having left hip replacement done). While hospitalized pt had revision of left hip arthroplasty and had ORIF of lt femoral fx. Pt discharged to TCU 09/10/21 on Eliquis for DVT prophylaxis. Current admission: Pt admitted from TCU 09/28/21 for SBO. Prior to this admission, plan on TCU was for pt to d/c home today 09/28 w/[facility]. Per Annmarie @ [facility], if pt discharges home, he will need new referral for C. Cesar RUELAS RN CM
[2021-09-28] MEDS: Menthol/Lanolin/Calamine/Znox 113 GM Tube 1 APPLIC TOPICAL (21:56)
[2021-09-29] MEDS: Heparin Injection (Vial) 5,000 UNIT/ML VIAL 5000 UNIT SC (06:00)
[2021-09-29] MEDS: Menthol/Lanolin/Calamine/Znox 113 GM Tube 1 APPLIC TOPICAL ×3 (06:00→22:00)
--- NOTE | 2021-09-29 06:00 | RAD_ITS ---
STUDY: X-RAY - ABDOMEN/PELVIS REASON FOR EXAM: Male, 86 years old. Shortness of breath TECHNIQUE: Single AP view of the abdomen / pelvis. COMPARISON: None. FINDINGS: Nasogastric tube coiled in the gastric fundus region. Dilated gaseous small bowel loops. The colon is not definitely distended. Contrast in the bladder from previous contrast study. Degenerative changes in the lumbar spine. Bilateral hip arthroplasty. RAD/Abdomen Single View (Portable) IMPRESSION: Dilated gaseous small bowel loops concerning for small bowel obstruction. Electronically Signed: Saurav Gaston, at 8:18 EST ,
--- NOTE | 2021-09-29 09:00 | RAD_ITS ---
STUDY: SMALL BOWEL FOLLOW-THROUGH REASON FOR EXAM: Male, 86 years old. SBO -- LIMITED RADIATION DOSAGE (If Supplied By Facility): CTDIvol = ( ) mGy, DLP = ( ) mGycm. Individualized dose optimization techniques were used for this CT.? FLUOROSCOPY TIME (if supplied): ( 1 ) seconds TECHNIQUE: 6 AP portable supine abdominal studies after contrast was injected through the NG tube. COMPARISON: Previous plain film of the abdomen FINDINGS: The initial 80 minute films show distended air-filled loops of small and large bowel in all 4 quadrants of the abdomen consistent with developing obstruction. Oral contrast is noted within the normally distended stomach and multiple proximal small bowel loops. The next 2 studies at 260 minutes show some progression of contrast within small bowel loops but there is still persistent oral contrast noted within the stomach. Last 2 films at 20 hours show no residual oral contrast within any bowel loop. However, the overall bowel gas pattern is unchanged with abnormally distended air-filled loops of small and large bowel all 4 quadrants of the abdomen. NG tube is noted within the stomach. EKG leads overlie the upper abdomen Bilateral replaced hips show anatomic alignment, and no complications. Degenerative changes noted in the lumbar spine and pelvis RAD/Small Bowel Series Only IMPRESSION: Over the course of 20 hours, eventually the oral contrast administered through the NG tube has worked its way through the intestines. There is no residual contrast remaining. However, there is a persistence of an abnormal bowel gas pattern with abnormally distended air-filled loops of small and large bowel in all 4 quadrants of the abdomen. Electronically Signed: Mushtaq Mireles MD at 8:15 EST ,
[2021-09-29] MEDS: Ondansetron 4 MG/2 ML Vial (11:05)
[2021-09-29] MEDS: 0.9% Saline Lock 10 ML Syringe IV (11:05)
--- NOTE | 2021-09-29 17:00 | PN_ITS ---
DATE OF SERVICE 09/29/2021 SUBJECTIVE Patient is still having abdominal distention. Denies abdominal pain. Did not pass any gas or bowel movement. Patient threw up couple times gastric content. Patient going for barium follow-through x-ray. OBJECTIVE General: Alert, Oriented x3, Cooperative HEENT: Atraumatic, PERRLA, EOMI, Normocephalic Oral: Edentulous. Neck: Supple, No JVD, Negative Carotid Bruits Lungs: Air entry diminished in bilateral lung bases. No crepitation/rhonchi Cardiovascular: Irregular rate and rhythm, A. fib, normal S1, Normal S2, CABG scar, systolic murmur LLSB Abdomen: . NG tube bilious aspirateBowel Sounds hyperactive, Soft, no tenderness. Upper abdomen distended. : No renal angle tenderness. No suprapubic tenderness. Extremities: Bilateral ankle edema, Capillary Refill Less than 3 Seconds Skin: Left heel ulcer, decubitus ulcer, since admission. Grayish discoloration. Musculoskeletal: No Tenderness to Palpation of Joints or Extremities Neurological: Cranial nerves II-XII grossly intact, DTR 2+/4 and Symmetrical, Neuro grossly intact Psych/Mental Status: Normal Affect, Appropriate. ASSESSMENT/PLAN 1. Distal small bowel obstruction: Exact etiology unclear possible adhesions: Patient is being admitted in PCU. NG tube aspirate to wall suction. IV fluid, n.p.o. Patient seen by surgeon Dr Pearson. Eliquis is on hold in case if patient needs surgery. Pain controlled. Surgeon to [facility] surgery tomorrow to see the contrast flow through the bowel. 09/29: Patient going for barium follow-through x-ray. Patient still has abdominal distention. Labs reviewed. Potassium 4.2. BUN/creatinine normal. Sodium 143. CBC with differential. No leukocytosis. H&H 14.. Platelet count 280,000. 2. Acute periprosthetic fracture of left proximal femur status post total hip replacement on 09/09. DVT prophylaxis to continue. PT and OT follow-up 3. Paroxysmal A. fib, chronic anemiaPatient heart rate is around 60/min, regular. Hemoglobin 9.9/32.7%. Platelet count is 3 94,000. 09/29: Twelve-lead EKG sinus bradycardia with multiple PVCs, first-degree AV block. Right bundle branch block. Rate 58 bpm 4. CKD stage IIIa: Patient had ARCHIE during previous hospitalization. Current BUN/creatinine 20/0.96. ARCHIE resolved. 09/29: BUN/creatinine normal range 5. Possible history of dysphagia: There was suspicion of dysphagia during previous hospitalization as patient was coughing on diet. No modified barium swallow on imaging. Speech therapist recommended. 6. Coronary artery disease status post CABG, hypertension, dyslipidemia, peripheral arterial disease: CT abdomen also showed atherosclerotic calcification of major visceral arteries. Patient underwent cardiac cath on 08/13/2021 for abnormal stress has perioperative risk stratification. Patent MARTINEZ to LAD but occlusion of saphenous vein graft. Medical therapy. Oral medications on hold. Continue IV replacement as needed to control heart rate and blood pressure. 7. GERD: On IV PPI 8. DVT prophylaxis: Eliquis on hold. Heparin 5000 units subcutaneous every 8 hourly for prophylaxis and anticoagulation effect can easily be reversed if patient needs surgery. SCD 09/29: Hold heparin after night dose for possible surgery tomorrow
[2021-09-29 18:58] LABS: Anion Gap 6 (5-15); BUN 15 mg/dL (7-18); BUN/Creat Ratio 21.5 RATIO (10-20); Calcium,Total 8.3 mg/dL (8.5-10.1); Chloride 109 mmol/L (98-107); EST Glomerular Filtration Rate 114 mL/min (>60); Est Glom Filt Rate - Afr Amer 138 mL/min (>60); Estimated Creatinine Clearance 50.49 ml/min; Glucose 105 mg/dL (74-106); Potassium 4.2 mmol/L (3.5-5.1); Sodium Level 143 mmol/L (136-145)
[2021-09-29 22:18] LABS: Basophil# 0.01 X10^3/uL; Basophil% 0.3 % (0-1); Differential Indicated SCAN CRITERIA MET; Eosinophil# 0.03 X10^3/uL; Eosinophils% 0.8 % (0-5); Hematocrit 46.3 % (40-54); Hemoglobin 14.1 g/dL (13.0-16.5); Lymphocyte % 10.6 % (19-41); Mean Corp Hgb Conc 30.5 g/dL (32-36); Mean Corpuscular Hgb 29.6 pg (27.0-32.0); Mean Corpuscular Volume 97.1 fL (80-94); Mean Platelet Vol. 9.8 fl (6.2-12.0); Monocyte# 0.29 X10^3/uL; Monocyte% 7.7 % (0-10); NRBC Flagged by Analyzer 0 % (0-5); Neutrophil # 3.03 X10^3/uL (2.7-7.7); Neutrophil % 80.6 % (47-70); POSITIVE DIFFERENTIAL YES; POSITIVE MORPHOLOGY YES; Platelet Count 218 K/mm3 (150-450); RBC Distribution Width CV 18.6 % (11.6-14.6); RBC Distribution Width SD 65.8 fl (35.1-43.9); Red Blood Count 4.77 M/mm3 (4.6-6.2); White Blood Count 3.8 K/mm3 (4.4-11.0)
[2021-09-29 22:19] LABS: Anisocytosis 1+; Differential Comment SCANNED; Macrocytosis 1+; Microcytosis 1+; Stomatocyte 1+
[2021-09-30] VITALS (10 sets, daily range): BP systolic 118–150; BP diastolic 63–88; PULSE 72–98; RESP 18–20; TEMP 36.4–37.2; O2SAT 79–97
[2021-09-30] MEDS: Lactated Ringers 1,000 ML 75 ML IV ×2 (00:49→11:17)
[2021-09-30 05:52] LABS: Absolute Lymphocyte Count 0.83 X10^3/uL (0.83-4.51); Absolute Neutrophil Count 3.2 X10^3/uL (2.0-7.7); Basophil# 0.02 X10^3/uL; Basophil% 0.4 % (0-1); Eosinophil# 0.11 X10^3/uL; Eosinophils% 2.3 % (0-5); Hematocrit 31.1 % (40-54); Hemoglobin 9.2 g/dL (13.0-16.5); Lymphocyte # 0.83 X10^3/ul (0.83-4.51); Lymphocyte % 17.2 % (19-41); Mean Corp Hgb Conc 29.6 g/dL (32-36); Mean Corpuscular Hgb 29.5 pg (27.0-32.0); Mean Corpuscular Volume 99.7 fL (80-94); Mean Platelet Vol. 10.3 fl (6.2-12.0); Monocyte# 0.64 X10^3/uL; Monocyte% 13.3 % (0-10); NRBC Flagged by Analyzer 0 % (0-5); Neutrophil # 3.21 X10^3/uL (2.7-7.7); Neutrophil % 66.6 % (47-70); POSITIVE MORPHOLOGY YES; Platelet Count 344 K/mm3 (150-450); RBC Distribution Width CV 18.6 % (11.6-14.6); RBC Distribution Width SD 67.5 fl (35.1-43.9); Red Blood Count 3.12 M/mm3 (4.6-6.2); White Blood Count 4.8 K/mm3 (4.4-11.0)
[2021-09-30] MEDS: Menthol/Lanolin/Calamine/Znox 113 GM Tube 1 APPLIC TOPICAL ×3 (06:53→22:16)
[2021-09-30 07:00] LABS: Differential Indicated SCAN CRITERIA MET
[2021-09-30 07:24] LABS: Anion Gap 5 (5-15); BUN 15 mg/dL (7-18); BUN/Creat Ratio 17.7 RATIO (10-20); Calcium,Total 8.3 mg/dL (8.5-10.1); Chloride 110 mmol/L (98-107); Creatinine, Serum 0.85 mg/dL (0.70-1.30); EST Glomerular Filtration Rate 91 mL/min (>60); Est Glom Filt Rate - Afr Amer 111 mL/min (>60); Glucose 84 mg/dL (74-106); Magnesium 2.3 mg/dL (1.6-2.6); Phosphorus 2.8 mg/dL (2.5-4.9); Potassium 4.3 mmol/L (3.5-5.1); Sodium Level 144 mmol/L (136-145)
[2021-09-30 07:33] LABS: Anisocytosis 1+
--- NOTE | 2021-09-30 07:53 | PN.SURG_ITS ---
Subjective Subjective Patient reports no flatus Objective Data Objective Data Vital Signs: Vital Signs Temp Pulse Resp BP Pulse Ox 97.5 F L 72 18 118/75 93 09/30/21 03:26 09/30/21 06:57 09/30/21 03:26 09/30/21 03:26 09/30/21 03:29 Oxygen Delivery Method Room Air Weight: 170 lb 13.732 oz Body Mass Index (BMI) 26.8 Intake & Output: Intake and Output for Last 24 Hours 09/28/21 09/29/21 09/30/21 23:59 23:59 23:59 Intake Total 1098.75 / 1098.75 1140 / 1140 50 / 50 Output Total 400 / 400 200 / 200 750 / 750 Balance 698.75 / 698.75 940 / 940 -700 / -700 Lab / Micro Data Result Diagrams: 09/30/21 04:10 09/30/21 04:10 Labs: Laboratory Results - last 24 hr 09/29/21 04:00: WBC 3.8 L, RBC 4.77, Hgb 14.1, Hct 46.3, MCV 97.1 H, MCH 29.6, MCHC 30.5 L, RDW Std Deviation 65.8 H, RDW Coeff of Denise 18.6 H, Plt Count 218, MPV 9.8, Immature Gran % (Auto) 0.000, Neut % (Auto) 80.6 H, Lymph % (Auto) 10.6 L, Trinity % (Auto) 7.7, Eos % (Auto) 0.8, Baso % (Auto) 0.3, Absolute Neuts (auto) 3.0, Absolute Lymphs (auto) 0.40 L, Nucleated RBC % 0, Differential Comment SCANNED, Diff Path Review May foll, Anisocytosis 1+, Microcytosis 1+, Macrocytosis 1+, Stomatocytes 1+ 09/29/21 04:00: Sodium 143, Potassium 4.2, Chloride 109 H, Carbon Dioxide 28.0, Anion Gap 6, BUN 15, Creatinine 0.70, Estim Creat Clear Calc 50.49, Est GFR (MDRD) Af Amer 138, Est GFR (MDRD) Non-Af 114, BUN/Creatinine Ratio 21.5 H, Glucose 105, Calcium 8.3 L 09/30/21 04:10: WBC 4.8, RBC 3.12 L, Hgb 9.2 L, Hct 31.1 L, MCV 99.7 H, MCH 29.5, MCHC 29.6 L, RDW Std Deviation 67.5 H, RDW Coeff of Denise 18.6 H, Plt Count 344, MPV 10.3, Immature Gran % (Auto) 0.200, Neut % (Auto) 66.6, Lymph % (Auto) 17.2 L, Trinity % (Auto) 13.3 H, Eos % (Auto) 2.3, Baso % (Auto) 0.4, Absolute Neuts (auto) 3.2, Absolute Lymphs (auto) 0.83, Nucleated RBC % 0, Anisocytosis 1+ 09/30/21 04:10: Sodium 144, Potassium 4.3, Chloride 110 H, Carbon Dioxide 29.0, Anion Gap 5, BUN 15, Creatinine 0.85, Estim Creat Clear Calc 59.40, Est GFR (MDRD) Af Amer 111, Est GFR (MDRD) Non-Af 91, BUN/Creatinine Ratio 17.7, Glucose 84, Calcium 8.3 L, Phosphorus 2.8, Magnesium 2.3 Radiography Diagnostic Testing: Radiology Impression KUB X-Ray 09/29/21 06:00 IMPRESSION: Dilated gaseous small bowel loops concerning for small bowel obstruction. Electronically Signed: Saurav Alek, at 8:18 EST , Physical Exam Const no apparent distress Cardio regular rate and regular rhythm GI soft to palpation Inspection: abdominal distention Palpation: tender Assessment & Plan Assessment/Plan (1) Small bowel obstruction: PLAN: Patient is small bowel obstruction which does not appear to be resolving. He had a KUB and contrast study yesterday which did not show any advancement of contrast and KUB this morning shows persistent small bowel obstruction with no movement of any gas into the colon. I recommend surgery for the patient but due to the patient's comorbidities and age I recommend this be performed tomorrow with full staff. I discussed this with the patient's daughter and the patient. I discussed the risks including modality to bleeding, infection, injury other organ such as bowel bladder or ureter. I discussed possibility of converting to open procedure as well as possibility of bowel resection. Patient's daughter understands the risks as the patient is mildly confused. She does agree for surgery and the patient agrees to proceed with surgery as well. Plan for surgery tomorrow afternoon. I have ordered a Covid swab and hold his heparin tomorrow morning. Continue fluids and NG drainage. Alvin Pearson MD Pager: [facility] [address] [place] [address] [address] [place] [address] Office:
--- NOTE | 2021-09-30 08:40 | CPS ---
Oxygen desaturation noted when patient asleep. Oxygen 2L NC placed for this reason.
--- NOTE | 2021-09-30 09:09 | PCM.PN.HOSP ---
Subjective Subjective Afebrile. NG tube shows bilious aspirate. No flatus or bowel movement. Objective Data Objective Data Vital Signs: Vital Signs Temp Pulse Resp BP Pulse Ox 97.5 F L 72 18 118/75 79 09/30/21 03:26 09/30/21 06:57 09/30/21 03:26 09/30/21 03:26 09/30/21 08:06 Oxygen Flow Rate (L/min) 2 Oxygen Delivery Method Nasal Cannula Weight: 170 lb 13.732 oz Body Mass Index (BMI) 26.8 Intake & Output: Intake and Output for Last 24 Hours 09/28/21 09/29/21 09/30/21 23:59 23:59 23:59 Intake Total 1098.75 / 1098.75 1610 / 1610 100 / 100 Output Total 400 / 400 3000 / 3000 750 / 750 Balance 698.75 / 698.75 -1390 / -1390 -650 / -650 Lab / Micro Data Result Diagrams: 09/30/21 04:10 09/30/21 04:10 Labs: Laboratory Results - last 24 hr 09/29/21 04:00: WBC 3.8 L, RBC 4.77, Hgb 14.1, Hct 46.3, MCV 97.1 H, MCH 29.6, MCHC 30.5 L, RDW Std Deviation 65.8 H, RDW Coeff of Denise 18.6 H, Plt Count 218, MPV 9.8, Immature Gran % (Auto) 0.000, Neut % (Auto) 80.6 H, Lymph % (Auto) 10.6 L, Towner % (Auto) 7.7, Eos % (Auto) 0.8, Baso % (Auto) 0.3, Absolute Neuts (auto) 3.0, Absolute Lymphs (auto) 0.40 L, Nucleated RBC % 0, Differential Comment SCANNED, Diff Path Review May foll, Anisocytosis 1+, Microcytosis 1+, Macrocytosis 1+, Stomatocytes 1+ 09/29/21 04:00: Sodium 143, Potassium 4.2, Chloride 109 H, Carbon Dioxide 28.0, Anion Gap 6, BUN 15, Creatinine 0.70, Estim Creat Clear Calc 50.49, Est GFR (MDRD) Af Amer 138, Est GFR (MDRD) Non-Af 114, BUN/Creatinine Ratio 21.5 H, Glucose 105, Calcium 8.3 L 09/30/21 04:10: WBC 4.8, RBC 3.12 L, Hgb 9.2 L, Hct 31.1 L, MCV 99.7 H, MCH 29.5, MCHC 29.6 L, RDW Std Deviation 67.5 H, RDW Coeff of Denise 18.6 H, Plt Count 344, MPV 10.3, Immature Gran % (Auto) 0.200, Neut % (Auto) 66.6, Lymph % (Auto) 17.2 L, Towner % (Auto) 13.3 H, Eos % (Auto) 2.3, Baso % (Auto) 0.4, Absolute Neuts (auto) 3.2, Absolute Lymphs (auto) 0.83, Nucleated RBC % 0, Anisocytosis 1+ 09/30/21 04:10: Sodium 144, Potassium 4.3, Chloride 110 H, Carbon Dioxide 29.0, Anion Gap 5, BUN 15, Creatinine 0.85, Estim Creat Clear Calc 59.40, Est GFR (MDRD) Af Amer 111, Est GFR (MDRD) Non-Af 91, BUN/Creatinine Ratio 17.7, Glucose 84, Calcium 8.3 L, Phosphorus 2.8, Magnesium 2.3 Radiography Diagnostic Testing: Radiology Impression KUB X-Ray 09/29/21 06:00 IMPRESSION: Dilated gaseous small bowel loops concerning for small bowel obstruction. Electronically Signed: Saurav Gaston at 8:18 EST , Small Bowel X-Ray 09/29/21 09:00 IMPRESSION: Over the course of 20 hours, eventually the oral contrast administered through the NG tube has worked its way through the intestines. There is no residual contrast remaining. However, there is a persistence of an abnormal bowel gas pattern with abnormally distended air-filled loops of small and large bowel in all 4 quadrants of the abdomen. Electronically Signed: Mushtaq Mireles MD at 8:15 EST , Physical Exam Narrative General: Alert, Oriented x3, Cooperative HEENT: Atraumatic, PERRLA, EOMI, Normocephalic Oral: Edentulous. Neck: Supple, No JVD, Negative Carotid Bruits Lungs: Air entry diminished in bilateral lung bases. No crepitation/rhonchi Cardiovascular: Irregular rate and rhythm, A. fib, normal S1, Normal S2, CABG scar, systolic murmur LLSB Abdomen: NG tube bilious aspirate. Bowel Sounds high-pitched, very sluggish, Soft, no tenderness. Upper abdomen distended. : No renal angle tenderness. No suprapubic tenderness. Extremities: Bilateral ankle edema, Capillary Refill Less than 3 Seconds Skin: Left heel ulcer, decubitus ulcer, since admission. Grayish discoloration. Musculoskeletal: No Tenderness to Palpation of Joints or Extremities Neurological: Cranial nerves II-XII grossly intact, DTR 2+/4 and Symmetrical, Neuro grossly intact Psych/Mental Status: Normal Affect, Appropriate. Assessment & Plan Assessment/Plan (1) Small bowel obstruction: PLAN: 1. Distal small bowel obstruction: Exact etiology unclear possible adhesions: Patient is being admitted in PCU. NG tube aspirate to wall suction. IV fluid, n.p.o. Patient seen by surgeon Dr Pearson. Eliquis is on hold in case if patient needs surgery. Pain controlled. Surgeon to [facility] surgery tomorrow to see the contrast flow through the bowel. 09/30: Surgical follow-up reviewed. Barium contrast study was done yesterday in follow-up. Did not show advancement of contrast or bowel gas today in the morning with suggestions of abdominal distention. Surgery recommended by the surgeon but planned for tomorrow afternoon with staff tomorrow.Perioperative surgical risk calculated. Serious complication, any complication at average risk. UTI, surgical site infection, readmission, discharged to SNF and sepsis above average. Cardiac complication and pneumonia below-average. Overall, patient is moderate perioperative risk for exploratory laparoscopy/laparotomy. 2. Chronic periprosthetic fracture of left proximal femur status post total hip replacement on 09/09. DVT prophylaxis to continue. Being followed by PT and OT 09/30: Surgical site does not show any signs of infection. 3. Paroxysmal A. fib, chronic anemia: Twelve-lead EKG ordered. Patient heart rate is around 60/min, regular. Hemoglobin 9.9/32.7%. Platelet count is 3 94,000. 4. CKD stage IIIa: Patient had ARCHIE during previous hospitalization. Current BUN/creatinine 20/0.96. ARCHIE resolved. 09/30: BUN/creatinine normal. 5. Possible history of dysphagia: There was suspicion of dysphagia during previous hospitalization as patient was coughing on diet. No modified barium swallow on imaging. Speech therapist recommended. 6. Coronary artery disease status post CABG, hypertension, dyslipidemia, peripheral arterial disease: CT abdomen also showed atherosclerotic calcification of major visceral arteries. Patient underwent cardiac cath on 08/13/2021 for abnormal stress has perioperative risk stratification. Patent MARTINEZ to LAD but occlusion of saphenous vein graft. Medical therapy. Oral medications on hold. Continue IV replacement as needed to control heart rate and blood pressure. 7. GERD: On IV PPI 8. DVT prophylaxis: Eliquis on hold. Heparin 5000 units subcutaneous every 8 hourly for prophylaxis and anticoagulation effect can easily be reversed if patient needs surgery. SCD Living will/advanced directive/end of life care: Patient does have living will or advanced directive. His daughter is power of radial drill press operator for health. After discussion of benefits/risks procedures involved with full code, DNR CC arrest and DNR CC, the patient said he does not want to be on life support machines. He does not want intubation, ventilator or CPR. Patient doesn't want artificial life support including intubation, tube feed, ventilator and/chest compression, central venous catheter, vasopressor and DC shock if needed Total time spent in [id number] encounter in discussion of advanced directive 16 minutes. Charges/Coding Visit Charges Inpatient E&M: 21507 Subs Hosp L2
[2021-09-30] MEDS: Heparin Injection (Vial) 5,000 UNIT/ML VIAL 5000 UNIT SC ×3 (09:17→22:16)
[2021-10-01] VITALS (14 sets, daily range): BP systolic 129–159; BP diastolic 55–76; PULSE 63–93; RESP 14–17; TEMP 36.5–37.7; O2SAT 87–100; BMI 26.7
[2021-10-01] MEDS: Lactated Ringers 1,000 ML 75 ML IV (01:47)
[2021-10-01 05:55] LABS: Absolute Lymphocyte Count 0.75 X10^3/uL (0.83-4.51); Absolute Neutrophil Count 2.3 X10^3/uL (2.0-7.7); Basophil# 0.02 X10^3/uL; Basophil% 0.5 % (0-1); Eosinophil# 0.26 X10^3/uL; Eosinophils% 6.5 % (0-5); Hematocrit 32.5 % (40-54); Hemoglobin 9.5 g/dL (13.0-16.5); Lymphocyte # 0.75 X10^3/ul (0.83-4.51); Lymphocyte % 18.8 % (19-41); Mean Corp Hgb Conc 29.2 g/dL (32-36); Mean Corpuscular Hgb 29.2 pg (27.0-32.0); Mean Platelet Vol. 10.5 fl (6.2-12.0); Monocyte# 0.61 X10^3/uL; Monocyte% 15.3 % (0-10); NRBC Flagged by Analyzer 0.5 % (0-5); Neutrophil # 2.33 X10^3/uL (2.7-7.7); Neutrophil % 58.6 % (47-70); POSITIVE MORPHOLOGY YES; Platelet Count 323 K/mm3 (150-450); RBC Distribution Width CV 17.8 % (11.6-14.6); RBC Distribution Width SD 65.8 fl (35.1-43.9); Red Blood Count 3.25 M/mm3 (4.6-6.2)
--- NOTE | 2021-10-01 05:55 | RAD_ITS ---
STUDY: X-RAY - ABDOMEN/PELVIS REASON FOR EXAM: Male, 86 years old. sbo TECHNIQUE: Single AP view of the abdomen / pelvis. COMPARISON: 09/29/2021 FINDINGS: Esophagogastric tube extends to the stomach. There are dilated loops of the small intestine with a non-distended colon consistent with a small bowel obstruction. There is no demonstrated free abdominal air. The visualized liver, spleen and kidneys are grossly normal in size and morphology. Normal soft tissue structures. Bilateral hip replacements. Degenerative changes of the lumbar spine. RAD/Abdomen Single View (Portable) IMPRESSION: Stable small bowel obstruction. Electronically Signed: Daniel Charles MD ([place]) at 7:58 EST ,
[2021-10-01 06:03] LABS: Partial Thromboplast Time 41.9 Seconds (24.1-36.2)
[2021-10-01 06:09] LABS: Differential Indicated SCAN CRITERIA MET
[2021-10-01 06:10] LABS: Anion Gap 7 (5-15); BUN 16 mg/dL (7-18); BUN/Creat Ratio 22.8 RATIO (10-20); Calcium,Total 8.1 mg/dL (8.5-10.1); Chloride 110 mmol/L (98-107); EST Glomerular Filtration Rate 113 mL/min (>60); Est Glom Filt Rate - Afr Amer 137 mL/min (>60); Estimated Creatinine Clearance 50.49 ml/min; Glucose 62 mg/dL (74-106); Magnesium 2.4 mg/dL (1.6-2.6); Potassium 3.9 mmol/L (3.5-5.1); Sodium Level 145 mmol/L (136-145)
[2021-10-01 06:25] LABS: Phosphorus 2.8 mg/dL (2.5-4.9)
[2021-10-01 06:35] LABS: Anisocytosis 2+
[2021-10-01 06:50] LABS: Bedside Glucose 70 mg/dL (70-110)
[2021-10-01] MEDS: Dextrose 10%-Water 250 ML 999 ML IV (07:04)
--- NOTE | 2021-10-01 07:47 | PN.SURG_ITS ---
Subjective Subjective No address change clerk night. No flatus or bowel movement. Objective Data Objective Data Vital Signs: Vital Signs Temp Pulse Resp BP Pulse Ox 97.9 F 82 16 129/55 H 94 10/01/21 04:11 10/01/21 04:11 10/01/21 04:11 10/01/21 04:11 10/01/21 04:11 Oxygen Flow Rate (L/min) 1 Oxygen Delivery Method Nasal Cannula Weight: 170 lb 6.677 oz Body Mass Index (BMI) 26.7 Intake & Output: Intake and Output for Last 24 Hours 09/29/21 09/30/21 10/01/21 23:59 23:59 23:59 Intake Total 1720 / 1720 1105 / 1105 1395 / 1395 Output Total 3000 / 3000 2050 / 2350 500 / 500 Balance -1280 / -1280 -945 / -1245 895 / 895 Medical Nutrition Assessment Dietitian: Malnutrition Criteria Met Start: 09/30/21 12:13 Freq: Status: Active Protocol: Document 09/30/21 12:13 AG (Rec: 09/30/21 12:14 AG [id number]) Nutrition Malnutrition Evidence of Malnutrition Exists Yes Malnutrition (severe): Acute Illness/Injury Evidenced By Suboptimal Energy Intake ( Severe),Weight Loss (Severe) Intake Problem Inadequate Oral Intake Etiology related to SBO, decreased appetite, nausea, emesis Signs/Symptoms as evidenced by 2kg/2.5% wt loss x 1 week STUDENT OUTREACH COORDINATOR, estimated PO intake meeting <50% of estimated energy needs >5 days Status Active Problem Clinical Problem Acute Disease or Injury Related Malnutrition Etiology severe, acute malnutrition r/t inadequate energy intake d/t GI dysfunction Signs/Symptoms as evidenced by 2kg/2.5% wt loss x 1 week STUDENT OUTREACH COORDINATOR, 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 If unable to tolerate PO diet advancement in next 48-72 hours, recommend initiation of nutrition support. Lab / Micro Data Result Diagrams: 10/01/21 04:31 10/01/21 04:31 Labs: Laboratory Results - last 24 hr 10/01/21 04:31: WBC 4.0 L, RBC 3.25 L, Hgb 9.5 L, Hct 32.5 L, MCV 100.0 H, MCH 29.2, MCHC 29.2 L, RDW Std Deviation 65.8 H, RDW Coeff of Denise 17.8 H, Plt Count 323, MPV 10.5, Immature Gran % (Auto) 0.300, Neut % (Auto) 58.6, Lymph % (Auto) 18.8 L, Pershing % (Auto) 15.3 H, Eos % (Auto) 6.5 H, Baso % (Auto) 0.5, Absolute Neuts (auto) 2.3, Absolute Lymphs (auto) 0.75 L, Nucleated RBC % 0.5, Anisocytosis 2+ 10/01/21 04:31: Sodium 145, Potassium 3.9, Chloride 110 H, Carbon Dioxide 28.0, Anion Gap 7, BUN 16, Creatinine 0.70, Estim Creat Clear Calc 50.49, Est GFR (MDRD) Af Amer 137, Est GFR (MDRD) Non-Af 113, BUN/Creatinine Ratio 22.8 H, Glucose 62 L, Calcium 8.1 L, Magnesium 2.4 10/01/21 04:31: Phosphorus 2.8 10/01/21 04:31: APTT 41.9 H 10/01/21 06:44: POC Glucose 70 Micro: Microbiology 09/30/21 11:15 Interface Orders SARS-CoV-2 Antigen (Rapid) - Final Radiography Diagnostic Testing: Radiology Impression Small Bowel X-Ray 09/29/21 09:00 IMPRESSION: Over the course of 20 hours, eventually the oral contrast administered through the NG tube has worked its way through the intestines. There is no residual contrast remaining. However, there is a persistence of an abnormal bowel gas pattern with abnormally distended air-filled loops of small and large bowel in all 4 quadrants of the abdomen. Electronically Signed: Mushtaq Mireles MD at 8:15 EST , Physical Exam Const no apparent distress Resp normal respiratory effort GI soft to palpation Inspection: abdominal distention Assessment & Plan Assessment/Plan (1) Small bowel obstruction: PLAN: Patient has small bowel obstruction that has not resolved. I discussed surgery with him yesterday. I discussed surgery with his daughter as well. I plan taking him for surgery today for exploratory laparoscopy with possible conversion open and possible bowel resection depending on findings. Alvin Pearson MD Pager: [facility] [address] [place] [address] Office:
[2021-10-01] MEDS: Dextrose 5%-Lactated Ringers 1,000 ML 75 ML IV ×2 (08:57→18:36)
--- NOTE | 2021-10-01 10:52 | NURSING ---
called and let her know time of surgery she gave verbal consnet
[2021-10-01] MEDS: Lactated Ringers 1,000 ML 15 ML IV ×2 (11:30→15:00)
--- NOTE | 2021-10-01 12:00 | CASEMGMT ---
MARGOTH was informed patient would like to return to TCU as long as insurance approves him. MARGOTH spoke with [facility] in TCU and they will have a bed for patient. Plan: d/c back to TCU pending insurance approval. Kimberly BARBOUR
[2021-10-01 12:46] LABS: Pathologist Review Reviewed
[2021-10-01] MEDS: Bupivacaine Mpf 0.5% 30 ML VIAL (13:45)
--- NOTE | 2021-10-01 13:56 | OP.PCM_ITS ---
Problems Associated Problem List Diagnoses (1) Small bowel obstruction: Report of Operation Date of Procedure: 10/01/21 Pre-Operative Diagnosis: Small bowel obstruction Post-Operative Diagnosis: Same Surgery/Procedure Performed:: Exploratory laparoscopy with takedown adhesions and release of small bowel obstruction Description of Procedure: Patient was brought back to the operating room and general anesthesia was induced. The abdomen was prepped and draped in usual sterile fashion and a Mahan catheter was placed. A midline incision was made superior to the umbilicus and deepened to the fascia which was elevated and incised. If port was placed in the abdomen it was insufflated 15 mmHg. Patient was placed in steep Trendelenburg position. Next under direct visualization a r ight lateral 5 mm port was placed as well as a left lateral 5 mm port. Using scissors the dense adhesions to the anterior abdominal wall and prior incision were taken down. There did not appear to be any injury to the bowel. Once all of the anterior adhesions were taken down which took considerable time the ileocecal valve was identified and the bowel was run backwards toward the dilated segment. There were several areas of tight adhesions which were freed including one tight band likely causing the obstruction. There appeared to be bowel contents flowing distally by the end of the procedure. Next the ports were removed and the abdomen was locked desufflate. The fascia was closed with an 0 Vicryl suture. The incisions were injected with local anesthetic and closed with interrupted Monocryl suture. Steri-Strips and bandages were applied. Mahan was removed at the end the case. Patient was awoken and taken to PACU in stable condition. Admit VTE Documentation VTE Mechan Device Prophylaxis: SCD's
--- NOTE | 2021-10-01 15:02 | PN.HOSP_ITS ---
Subjective Subjective Patient with persistent small bowel obstruction and taken to the OR this afternoon for ex lap. Upon my evaluation this morning prior to surgery had no complaints but persistently had no flatus or bowel movement. NG tube remains in place. He remains confused. He states that his hip however is feeling well. Objective Data Objective Data Vital Signs: Vital Signs Temp Pulse Resp BP Pulse Ox 99.0 F 93 16 154/76 H 94 10/01/21 14:30 10/01/21 14:30 10/01/21 14:30 10/01/21 14:30 10/01/21 14:30 Oxygen Flow Rate (L/min) 2 Oxygen Delivery Method Room Air Weight: 77.3 kg Body Mass Index (BMI) 26.7 Intake & Output: Intake and Output for Last 24 Hours 09/29/21 09/30/21 10/01/21 23:59 23:59 23:59 Intake Total 1720 / 1720 1105 / 1105 2855 / 2855 Output Total 3000 / 3000 2050 / 2350 830 / 830 Balance -1280 / -1280 -945 / -1245 2024 Medical Nutrition Assessment Dietitian: Malnutrition Criteria Met Start: 09/30/21 12:13 Freq: Status: Active Protocol: Document 09/30/21 12:13 AG (Rec: 09/30/21 12:14 AG [id number]) Nutrition Malnutrition Evidence of Malnutrition Exists Yes Malnutrition (severe): Acute Illness/Injury Evidenced By Suboptimal Energy Intake ( Severe),Weight Loss (Severe) Intake Problem Inadequate Oral Intake Etiology related to SBO, decreased appetite, nausea, emesis Signs/Symptoms as evidenced by 2kg/2.5% wt loss x 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 If unable to tolerate PO diet advancement in next 48-72 hours, recommend initiation of nutrition support. Lab / Micro Data Result Diagrams: 10/01/21 04:31 10/01/21 04:31 Labs: Laboratory Results - last 24 hr 09/29/21 04:00: Diff Path Review Reviewed 10/01/21 04:31: WBC 4.0 L, RBC 3.25 L, Hgb 9.5 L, Hct 32.5 L, MCV 100.0 H, MCH 29.2, MCHC 29.2 L, RDW Std Deviation 65.8 H, RDW Coeff of Denise 17.8 H, Plt Count 323, MPV 10.5, Immature Gran % (Auto) 0.300, Neut % (Auto) 58.6, Lymph % (Auto) 18.8 L, [place] % (Auto) 15.3 H, Eos % (Auto) 6.5 H, Baso % (Auto) 0.5, Absolute Neuts (auto) 2.3, Absolute Lymphs (auto) 0.75 L, Nucleated RBC % 0.5, Anisocytosis 2+ 10/01/21 04:31: Sodium 145, Potassium 3.9, Chloride 110 H, Carbon Dioxide 28.0, Anion Gap 7, BUN 16, Creatinine 0.70, Estim Creat Clear Calc 50.49, Est GFR (MDRD) Af Amer 137, Est GFR (MDRD) Non-Af 113, BUN/Creatinine Ratio 22.8 H, Glucose 62 L, Calcium 8.1 L, Magnesium 2.4 10/01/21 04:31: Phosphorus 2.8 10/01/21 04:31: APTT 41.9 H 10/01/21 06:44: POC Glucose 70 Micro: Microbiology 09/30/21 11:15 Interface Orders SARS-CoV-2 Antigen (Rapid) - Final Radiography Diagnostic Testing: Radiology Impression KUB X-Ray 10/01/21 05:55 IMPRESSION: Stable small bowel obstruction. Electronically Signed: Daniel Charles MD (Brooks) at 7:58 EST Reading Location ID and State: / [place] , Service support , Physical Exam Const alert and average body habitus Constitutional Narrative: Elderly white male lying in bed with NG tube in place, appears comfortable and nontoxic patient is oriented to self and location but not month year or present of the [facility] Orientation / Consciousness: confused Exam Limitations: no limitations Nutritional Appearance: overweight HEENT head/scalp atraumatic HEENT Narrative: Edentulous, mucous membranes are slightly dry, NG tube is in right nares putting out bilious looking fluid Head and Scalp: normocephalic Resp normal respiratory effort, no retractions, no use of accessory muscles and clear to auscultation bilaterally Auscultation: Negative for crackles, rales, rhonchi or wheezes Cardio regular rate, regular rhythm, S1 normal heart sound, S2 normal heart sound, no rub, no gallops, no clicks and no JVD; Negative for no murmurs Cardio Narrative: 2 out of 6 systolic murmur GI normal to inspection, nondistended, normoactive bowel sounds, soft to palpation, non-tender and non-distended Extremity no clubbing, cyanosis or edema Peripheral Pulses: Yes pulses 2+ throughout Neuro CN's II-XII intact bilaterally, moves all extremities and no focal motor deficits Neuro Narrative: Generalized weakness Sensorium / Orientation: awake and alert Assessment & Plan Assessment/Plan (1) Small bowel obstruction: PLAN: Distal small bowel obstruction -OR for ex lap today -Continue NG -Request is on hold -N.p.o. 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 Stahl -Currently in normal sinus rhythm -Metoprolol is on hold CKD stage IIIa -Current serum creatinine is 0.7 -Monitor CAD status post CABG/hypertension/hyperlipidemia/PAD -Home oral medications are currently on hold given small bowel obstruction -Blood pressure has been slightly elevated but no systolic pressures greater than 160 -Monitor and if having pressures greater than 160 will start IV as needed medication -Restart home medications once obstruction has resolved GERD -Continue IV PPI -Condition to oral once able Macrocytic anemia -Hemoglobin at baseline appears to be between 8 and 10 -Current hemoglobin is 9.5 -Suspect slight drop after surgery -Is on oral iron at baseline--> currently on hold with bowel obstruction DVT prophylaxis -Restart prophylactic heparin tomorrow afternoon per discussion with surgery CODE STATUS -DNR CCA per documentation from previous physician Charges/Coding Visit Charges Inpatient E&M: 66482 Subs Hosp L2
[2021-10-01] MEDS: Menthol/Lanolin/Calamine/Znox 113 GM Tube 1 APPLIC TOPICAL (20:57)
[2021-10-02] VITALS (13 sets, daily range): BP systolic 126–149; BP diastolic 62–78; PULSE 52–87; RESP 14–16; TEMP 36.3–36.9; O2SAT 90–98
[2021-10-02 04:06] LABS: Absolute Lymphocyte Count 0.21 X10^3/uL (0.83-4.51); Absolute Neutrophil Count 3.1 X10^3/uL (2.0-7.7); Hematocrit 30.1 % (40-54); Lymphocyte # 0.21 X10^3/ul (0.83-4.51); Lymphocyte % 5.7 % (19-41); Mean Corp Hgb Conc 29.9 g/dL (32-36); Mean Corpuscular Hgb 29.7 pg (27.0-32.0); Mean Corpuscular Volume 99.3 fL (80-94); Mean Platelet Vol. 9.8 fl (6.2-12.0); Monocyte# 0.32 X10^3/uL; Monocyte% 8.7 % (0-10); NRBC Flagged by Analyzer 0 % (0-5); Neutrophil # 3.12 X10^3/uL (2.7-7.7); Neutrophil % 85.3 % (47-70); POSITIVE DIFFERENTIAL YES; Platelet Count 301 K/mm3 (150-450); RBC Distribution Width CV 17.4 % (11.6-14.6); RBC Distribution Width SD 64.9 fl (35.1-43.9); Red Blood Count 3.03 M/mm3 (4.6-6.2); White Blood Count 3.7 K/mm3 (4.4-11.0)
[2021-10-02 04:12] LABS: Differential Indicated SCAN CRITERIA MET
[2021-10-02 04:26] LABS: Anion Gap 4 (5-15); BUN 14 mg/dL (7-18); BUN/Creat Ratio 16.7 RATIO (10-20); Calcium,Total 7.8 mg/dL (8.5-10.1); Chloride 111 mmol/L (98-107); Creatinine, Serum 0.84 mg/dL (0.70-1.30); EST Glomerular Filtration Rate 93 mL/min (>60); Est Glom Filt Rate - Afr Amer 112 mL/min (>60); Estimated Creatinine Clearance 60.11 ml/min; Glucose 204 mg/dL (74-106); Potassium 4.5 mmol/L (3.5-5.1); Sodium Level 145 mmol/L (136-145)
[2021-10-02 04:38] LABS: Differential Comment SCANNED
[2021-10-02] MEDS: Menthol/Lanolin/Calamine/Znox 113 GM Tube 1 APPLIC TOPICAL ×3 (06:49→21:03)
--- NOTE | 2021-10-02 07:40 | PCM.PN.SRG ---
Subjective Subjective Patient reports feeling better than before surgery and passing some flatus. Objective Data Objective Data Vital Signs: Vital Signs Temp Pulse Resp BP Pulse Ox 97.8 F 87 14 126/67 H 96 10/02/21 03:10 10/02/21 07:15 10/02/21 03:10 10/02/21 03:10 10/02/21 03:10 Oxygen Flow Rate (L/min) 4 Oxygen Delivery Method Nasal Cannula Weight: 180 lb 1.883 oz Body Mass Index (BMI) 26.7 Intake & Output: Intake and Output for Last 24 Hours 09/30/21 10/01/21 10/02/21 23:59 23:59 23:59 Intake Total 1105 / 1105 3653.75 / 3653.75 Output Total 0 / 0 1130 / 1180 50 / 50 Balance -945 / -1245 2523.75 / 2473.75 -50 / -50 Medical Nutrition Assessment Dietitian: Malnutrition Criteria Met Start: 09/30/21 12:13 Freq: Status: Active Protocol: Document 09/30/21 12:13 AG (Rec: 09/30/21 12:14 [id number]) Nutrition Malnutrition Evidence of Malnutrition Exists Yes Malnutrition (severe): Acute Illness/Injury Evidenced By Suboptimal Energy Intake ( Severe),Weight Loss (Severe) Intake Problem Inadequate Oral Intake Etiology related to SBO, decreased appetite, nausea, emesis Signs/Symptoms as evidenced by 2kg/2.5% wt loss x 1 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 If unable to tolerate PO diet advancement in next 48-72 hours, recommend initiation of nutrition support. Lab / Micro Data Result Diagrams: 10/02/21 03:15 10/02/21 03:15 Labs: Laboratory Results - last 24 hr 09/29/21 04:00: Diff Path Review Reviewed 10/02/21 03:15: WBC 3.7 L, RBC 3.03 L, Hgb 9.0 L, Hct 30.1 L, MCV 99.3 H, MCH 29.7, MCHC 29.9 L, RDW Std Deviation 64.9 H, RDW Coeff of Denise 17.4 H, Plt Count 301, MPV 9.8, Immature Gran % (Auto) 0.300, Neut % (Auto) 85.3 H, Lymph % (Auto) 5.7 L, [place] % (Auto) 8.7, Eos % (Auto) 0.0, Baso % (Auto) 0.0, Absolute Neuts (auto) 3.1, Absolute Lymphs (auto) 0.21 L, Nucleated RBC % 0, Differential Comment SCANNED, Diff Path Review December10/02/21 03:15: Sodium 145, Potassium 4.5, Chloride 111 H, Carbon Dioxide 30.0, Anion Gap 4 L, BUN 14, Creatinine 0.84, Estim Creat Clear Calc 60.11, Est GFR (MDRD) Af Amer 112, Est GFR (MDRD) Non-Af 93, BUN/Creatinine Ratio 16.7, Glucose 204 H, Calcium 7.8 L Micro: Microbiology 09/30/21 11:15 Interface Orders SARS-CoV-2 Antigen (Rapid) - Final Radiography Diagnostic Testing: Radiology Impression KUB X-Ray 10/01/21 05:55 IMPRESSION: Stable small bowel obstruction. Electronically Signed: Daniel Charles MD (Brooks) at 7:58 EST Reading Location ID and State: [address] [place] [address] , Service support , Physical Exam Const no apparent distress Resp normal respiratory effort Cardio regular rate and regular rhythm GI soft to palpation Inspection: abdominal distention Assessment & Plan Assessment/Plan (1) Small bowel obstruction: PLAN: Patient had laparoscopy with takedown of adhesions yesterday. His NG had minimal output overnight. His abdomen is soft but still distended and you does report a little bit of flatus but feeling things growling like things are moving through. He is in less pain than before surgery. His vital signs are stable. I will remove his NG but continue sips and ice chips until he has more significant bowel function and then advance diet as tolerated. Alvin Pearson MD Pager: [facility] [address] [place] [address], [facility] [address] [place] [address] Office:
[2021-10-02] MEDS: Dextrose 5%-Lactated Ringers 1,000 ML 75 ML IV ×2 (08:01→21:00)
[2021-10-02] MEDS: Heparin Injection (Vial) 5,000 UNIT/ML VIAL 5000 UNIT SC ×2 (14:16→20:59)
--- NOTE | 2021-10-02 14:39 | PN.HOSP_ITS ---
Subjective Subjective Patient less confused today. Currently alert and oriented to self place month and year. Had some flatus but no bowel movement as of yet. NG tube removed this morning. Objective Data Objective Data Vital Signs: Vital Signs Temp Pulse Resp BP Pulse Ox 97.6 F L 77 16 135/62 H 91 10/02/21 13:03 10/02/21 13:03 10/02/21 13:03 10/02/21 13:03 10/02/21 13:03 Oxygen Flow Rate (L/min) 2 Oxygen Delivery Method Nasal Cannula Weight: 81.7 kg Body Mass Index (BMI) 26.7 Intake & Output: Intake and Output for Last 24 Hours 09/30/21 10/01/21 10/02/21 23:59 23:59 23:59 Intake Total 1105 / 1105 3653.75 / 3653.75 1230 / 1230 Output Total 2050 / 2350 1130 / 1180 50 / 50 Balance -945 / -1245 2523.75 / 2473.75 1180 / 1180 Medical Nutrition Assessment Dietitian: Malnutrition Criteria Met Start: 09/30/21 12:13 Freq: Status: Active Protocol: Document 10/02/21 13:07 AG (Rec: 10/02/21 13:07 [id number]) Nutrition Malnutrition Evidence of Malnutrition Exists Yes Malnutrition (severe): Acute Illness/Injury Evidenced By Suboptimal Energy Intake ( Severe),Weight Loss (Severe) Intake Problem Inadequate Oral Intake Etiology related to SBO, decreased appetite, nausea, emesis Signs/Symptoms as evidenced by 2kg/2.5% wt loss x 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 If unable to tolerate PO diet advancement in next 48-72 hours, recommend initiation of nutrition support. Lab / Micro Data Result Diagrams: 10/02/21 03:15 10/02/21 03:15 Labs: Laboratory Results - last 24 hr 10/02/21 03:15: WBC 3.7 L, RBC 3.03 L, Hgb 9.0 L, Hct 30.1 L, MCV 99.3 H, MCH 29.7, MCHC 29.9 L, RDW Std Deviation 64.9 H, RDW Coeff of Denise 17.4 H, Plt Count 301, MPV 9.8, Immature Gran % (Auto) 0.300, Neut % (Auto) 85.3 H, Lymph % (Auto) 5.7 L, [place] % (Auto) 8.7, Eos % (Auto) 0.0, Baso % (Auto) 0.0, Absolute Neuts (auto) 3.1, Absolute Lymphs (auto) 0.21 L, Nucleated RBC % 0, Differential Comment SCANNED, Diff Path Review December10/02/21 03:15: Sodium 145, Potassium 4.5, Chloride 111 H, Carbon Dioxide 30.0, Anion Gap 4 L, BUN 14, Creatinine 0.84, Estim Creat Clear Calc 60.11, Est GFR (MDRD) Af Amer 112, Est GFR (MDRD) Non-Af 93, BUN/Creatinine Ratio 16.7, Glucose 204 H, Calcium 7.8 L Micro: Microbiology 09/30/21 11:15 Interface Orders SARS-CoV-2 Antigen (Rapid) - Final Physical Exam Const alert and average body habitus Constitutional Narrative: Elderly white male lying in bed,m Alert to place, self, month and year, Appears comfortable and nontoxic Orientation / Consciousness: confused Exam Limitations: no limitations Nutritional Appearance: overweight HEENT head/scalp atraumatic and moist oral mucous membranes HEENT Narrative: NG tube has been removed, Patient is edentulous, Mallampati 2 Head and Scalp: normocephalic Resp normal respiratory effort, no retractions, no use of accessory muscles and clear to auscultation bilaterally Auscultation: Negative for crackles, rales, rhonchi or wheezes Cardio regular rate, regular rhythm, S1 normal heart sound, S2 normal heart sound, no rub, no gallops, no clicks and no JVD; Negative for no murmurs Cardio Narrative: 2 out of 6 systolic murmur GI normal to inspection, nondistended, normoactive bowel sounds, soft to palpation and non-distended GI Narrative: Mild tenderness around laparoscopic port sites, bowel sounds are present Extremity no clubbing, cyanosis or edema Peripheral Pulses: Yes pulses 2+ throughout Neuro CN's II-XII intact bilaterally, moves all extremities and no focal motor deficits Neuro Narrative: Generalized weakness Sensorium / Orientation: awake and alert Assessment & Plan Assessment/Plan (1) Small bowel obstruction: PLAN: Distal small bowel obstruction -Ex lap with HAYDEN performed yesterday -NG tube removed today -Eliquis remains on hold-->Restart when okay with general surgery -N.p.o.Except for ice chips -Diet to be advanced by general surgery -No current pain 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 Stahl -Currently in normal sinus rhythm -Metoprolol is on hold CKD stage IIIa -Current serum creatinine is 0.7 -Monitor CAD status post CABG/hypertension/hyperlipidemia/PAD -Home oral medications are currently on hold given small bowel obstruction -Blood pressure has been slightly elevated but no systolic pressures greater than 160 -Monitor and if having pressures greater than 160 will start IV as needed medication -Restart home medications once obstruction has resolved GERD -Continue IV PPI -Restart oral once able Macrocytic anemia -Hemoglobin at baseline appears to be between 8 and 10 -Current hemoglobin is 9.0 -Suspect slight drop after surgery -Is on oral iron at baseline--> currently on hold with bowel obstruction DVT prophylaxis -Prophylactic subcu heparin for now CODE STATUS -DNR CCA per documentation from previous physician Charges/Coding Visit Charges Inpatient E&M: 30551 Subs Hosp L2
[2021-10-03] VITALS (12 sets, daily range): BP systolic 134–146; BP diastolic 63–88; PULSE 68–88; RESP 16–18; TEMP 36.5–36.8; O2SAT 91–94
[2021-10-03 04:52] LABS: Absolute Lymphocyte Count 0.91 X10^3/uL (0.83-4.51); Absolute Neutrophil Count 2.2 X10^3/uL (2.0-7.7); Eosinophil# 0.01 X10^3/uL; Eosinophils% 0.3 % (0-5); Hematocrit 29.8 % (40-54); Hemoglobin 9.1 g/dL (13.0-16.5); Lymphocyte # 0.91 X10^3/ul (0.83-4.51); Lymphocyte % 24.9 % (19-41); Mean Corp Hgb Conc 30.5 g/dL (32-36); Mean Corpuscular Hgb 30.2 pg (27.0-32.0); Mean Platelet Vol. 10.2 fl (6.2-12.0); Monocyte# 0.48 X10^3/uL; Monocyte% 13.2 % (0-10); NRBC Flagged by Analyzer 0 % (0-5); Neutrophil # 2.24 X10^3/uL (2.7-7.7); Neutrophil % 61.3 % (47-70); Platelet Count 293 K/mm3 (150-450); RBC Distribution Width CV 17.2 % (11.6-14.6); RBC Distribution Width SD 62.4 fl (35.1-43.9); Red Blood Count 3.01 M/mm3 (4.6-6.2); White Blood Count 3.7 K/mm3 (4.4-11.0)
[2021-10-03 05:06] LABS: Anion Gap 3 (5-15); BUN 15 mg/dL (7-18); BUN/Creat Ratio 21.6 RATIO (10-20); Calcium,Total 7.9 mg/dL (8.5-10.1); Chloride 110 mmol/L (98-107); Creatinine, Serum 0.69 mg/dL (0.70-1.30); EST Glomerular Filtration Rate 115 mL/min (>60); Est Glom Filt Rate - Afr Amer 139 mL/min (>60); Estimated Creatinine Clearance 50.49 ml/min; Glucose 105 mg/dL (74-106); Potassium 3.6 mmol/L (3.5-5.1); Sodium Level 143 mmol/L (136-145)
[2021-10-03] MEDS: Heparin Injection (Vial) 5,000 UNIT/ML VIAL 5000 UNIT SC ×3 (05:48→21:53)
[2021-10-03] MEDS: Menthol/Lanolin/Calamine/Znox 113 GM Tube 1 APPLIC TOPICAL ×3 (05:48→21:52)
--- NOTE | 2021-10-03 07:48 | PN.SURG_ITS ---
Subjective Subjective Patient reports he is passing flatus this morning. Objective Data Objective Data Vital Signs: Vital Signs Temp Pulse Resp BP Pulse Ox 98.1 F 80 16 145/88 H 94 10/03/21 03:30 10/03/21 06:00 10/03/21 03:30 10/03/21 03:30 10/03/21 03:30 Oxygen Flow Rate (L/min) 2 Oxygen Delivery Method Room Air Weight: 183 lb 3.266 oz Body Mass Index (BMI) 26.7 Intake & Output: Intake and Output for Last 24 Hours 10/01/21 10/02/21 10/03/21 23:59 23:59 23:59 Intake Total 3653.75 / 3653.75 2303.75 / 2303.75 Output Total 1130 / 1180 450 / 700 400 / 400 Balance 2523.75 / 2473.75 1853.75 / 1603.75 -400 / -400 Medical Nutrition Assessment Dietitian: Malnutrition Criteria Met Start: 09/30/21 12:13 Freq: Status: Active Protocol: Document 10/02/21 13:07 (Rec: 10/02/21 13:07 [id number]) Nutrition Malnutrition Evidence of Malnutrition Exists Yes Malnutrition (severe): Acute Illness/Injury Evidenced By Suboptimal Energy Intake ( Severe),Weight Loss (Severe) Intake Problem Inadequate Oral Intake Etiology related to SBO, decreased appetite, nausea, emesis Signs/Symptoms as evidenced by 2kg/2.5% wt loss 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 If unable to tolerate PO diet advancement in next 48-72 hours, recommend initiation of nutrition support. Lab / Micro Data Result Diagrams: 10/03/21 03:53 10/03/21 03:53 Labs: Laboratory Results - last 24 hr 10/03/21 03:53: WBC 3.7 L, RBC 3.01 L, Hgb 9.1 L, Hct 29.8 L, MCV 99.0 H, MCH 30.2, MCHC 30.5 L, RDW Std Deviation 62.4 H, RDW Coeff of Denise 17.2 H, Plt Count 293, MPV 10.2, Immature Gran % (Auto) 0.300, Neut % (Auto) 61.3, Lymph % (Auto) 24.9, [place] % (Auto) 13.2 H, Eos % (Auto) 0.3, Baso % (Auto) 0.0, Absolute Neuts (auto) 2.2, Absolute Lymphs (auto) 0.91, Nucleated RBC % 0 10/03/21 03:53: Sodium 143, Potassium 3.6, Chloride 110 H, Carbon Dioxide 30.0, Anion Gap 3 L, BUN 15, Creatinine 0.69 L, Estim Creat Clear Calc 50.49, Est GFR (MDRD) Af Amer 139, Est GFR (MDRD) Non-Af 115, BUN/Creatinine Ratio 21.6 H, Glucose 105, Calcium 7.9 L Micro: Microbiology 09/30/21 11:15 Interface Orders SARS-CoV-2 Antigen (Rapid) - Final Physical Exam Const no apparent distress Resp normal respiratory effort GI soft to palpation Inspection: abdominal distention Assessment & Plan Assessment/Plan (1) Small bowel obstruction: PLAN: Patient's vitals remained stable and he has not had any nausea or vomiting. The patient does have bowel sounds and is passing some flatus this morning although he is still distended. I would like to wait till his distention decreases before starting a diet. I will check back on him later today and possibly start a diet if distention is decreased. Patient's white count remains normal. Hemoglobin is stable. Alvin Pearson MD Pager: [facility] [address] [place] [address], [address] [place] [address] Office:
[2021-10-03] MEDS: Dextrose 5%-Lactated Ringers 1,000 ML 75 ML IV ×2 (08:41→22:02)
[2021-10-03 09:31] LABS: Pathologist Review Reviewed
--- NOTE | 2021-10-03 12:00 | CASEMGMT ---
Plan is for patient to return to TCU when medically ready. Green sheet on patient's chart. Plan: d/c back to [facility] TCU under skilled level of care when medically ready. Kimberly BARBOUR
--- NOTE | 2021-10-03 12:40 | PN.HOSP_ITS ---
Subjective Subjective Doing well, denies any abdominal pain or nausea. He denies any bowel movement but he is passing flatus Objective Data Objective Data Vital Signs: Vital Signs Temp Pulse Resp BP Pulse Ox 98.3 F 79 18 134/63 H 92 10/03/21 09:30 10/03/21 11:00 10/03/21 09:30 10/03/21 09:30 10/03/21 09:30 Oxygen Flow Rate (L/min) 2 Oxygen Delivery Method Room Air Weight: 183 lb 3.266 oz Body Mass Index (BMI) 26.7 Intake & Output: Intake and Output for Last 24 Hours 10/02/21 10/03/21 10/04/21 03:59 03:59 03:59 Intake Total 2653.75 / 2653.75 2303.75 / 2303.75 988.75 / 988.75 Output Total 880 / 880 650 / 650 150 / 150 Balance 1773.75 / 1773.75 1653.75 / 1653.75 838.75 / 838.75 Medical Nutrition Assessment Dietitian: Malnutrition Criteria Met Start: 09/30/21 12:13 Freq: Status: Active Protocol: Document 10/02/21 13:07 (Rec: 10/02/21 13:07 [id number]) Nutrition Malnutrition Evidence of Malnutrition Exists Yes Malnutrition (severe): Acute Illness/Injury Evidenced By Suboptimal Energy Intake ( Severe),Weight Loss (Severe) Intake Problem Inadequate Oral Intake Etiology related to SBO, decreased appetite, nausea, emesis Signs/Symptoms as evidenced by 2kg/2.5% wt loss x 1 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 If unable to tolerate PO diet advancement in next 48-72 hours, recommend initiation of nutrition support. Lab / Micro Data Result Diagrams: 10/03/21 03:53 10/03/21 03:53 Labs: Laboratory Results - last 24 hr 10/02/21 03:15: Diff Path Review Reviewed 10/03/21 03:53: WBC 3.7 L, RBC 3.01 L, Hgb 9.1 L, Hct 29.8 L, MCV 99.0 H, MCH 30.2, MCHC 30.5 L, RDW Std Deviation 62.4 H, RDW Coeff of Denise 17.2 H, Plt Count 293, MPV 10.2, Immature Gran % (Auto) 0.300, Neut % (Auto) 61.3, Lymph % (Auto) 24.9, [place] % (Auto) 13.2 H, Eos % (Auto) 0.3, Baso % (Auto) 0.0, Absolute Neuts (auto) 2.2, Absolute Lymphs (auto) 0.91, Nucleated RBC % 0 10/03/21 03:53: Sodium 143, Potassium 3.6, Chloride 110 H, Carbon Dioxide 30.0, Anion Gap 3 L, BUN 15, Creatinine 0.69 L, Estim Creat Clear Calc 50.49, Est GFR (MDRD) Af Amer 139, Est GFR (MDRD) Non-Af 115, BUN/Creatinine Ratio 21.6 H, Glucose 105, Calcium 7.9 L Micro: Microbiology 09/30/21 11:15 Interface Orders SARS-CoV-2 Antigen (Rapid) - Final Physical Exam Const alert, oriented x3 and no apparent distress General Appearance: cooperative HEENT normocephalic and moist oral mucous membranes Eyes PERRL, EOMs intact bilaterally and conjunctivae normal Neck supple and no JVD Resp normal respiratory effort, no retractions, no use of accessory muscles and clear to auscultation bilaterally Auscultation: Negative for crackles, rales, rhonchi or wheezes Cardio regular rate, regular rhythm, S1 normal heart sound, S2 normal heart sound and no murmurs GI soft to palpation and non-tender; Negative for hepatosplenomegaly Inspection: abdominal distention Extremity no clubbing, cyanosis or edema Skin no rashes or lesions noted Neuro no focal motor deficits and no sensory deficits noted Psych affect normal Appearance: appropriate Assessment & Plan Assessment/Plan (1) Small bowel obstruction: PLAN: 1. Distal small bowel obstruction -Ex lap with HAYDEN performed 10/01/2021 -NG tube removed 10/02/2021 -Eliquis remains on hold-->Restart when okay with general surgery -N.p.o.Except for ice chips, he is passing gas and does not have any nausea but he does still remain somewhat distended in his abdomen -No current pain 2. 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 Paroxysmal A. fib/CAD status post CABG/HTN/HLD/PAD ?Continue with his home blood pressure medications as able ?We will resume Eliquis when able to per general surgery 4. CKD 3 a ?Creatinine stable 5. GERD ?Stable ?Continue with PPI DVT: Heparin Charges/Coding Visit Charges Inpatient E&M: 04921 Subs Hosp L2
[2021-10-03] MEDS: 0.9% Saline Lock 10 ML Syringe IV (21:59)
[2021-10-04] VITALS (11 sets, daily range): BP systolic 123–143; BP diastolic 60–90; PULSE 58–86; RESP 18; TEMP 36.3–36.7; O2SAT 93–96
[2021-10-04 06:05] LABS: Absolute Lymphocyte Count 1.19 X10^3/uL (0.83-4.51); Basophil# 0.01 X10^3/uL; Basophil% 0.2 % (0-1); Eosinophil# 0.19 X10^3/uL; Eosinophils% 4.7 % (0-5); Hemoglobin 9.6 g/dL (13.0-16.5); Lymphocyte # 1.19 X10^3/ul (0.83-4.51); Lymphocyte % 29.6 % (19-41); Mean Corpuscular Hgb 30.1 pg (27.0-32.0); Mean Corpuscular Volume 97.2 fL (80-94); Mean Platelet Vol. 10.5 fl (6.2-12.0); Monocyte# 0.62 X10^3/uL; Monocyte% 15.4 % (0-10); NRBC Flagged by Analyzer 0 % (0-5); Neutrophil # 1.99 X10^3/uL (2.7-7.7); Neutrophil % 49.6 % (47-70); Platelet Count 284 K/mm3 (150-450); RBC Distribution Width CV 16.8 % (11.6-14.6); RBC Distribution Width SD 60.2 fl (35.1-43.9); Red Blood Count 3.19 M/mm3 (4.6-6.2)
[2021-10-04] MEDS: Heparin Injection (Vial) 5,000 UNIT/ML VIAL 5000 UNIT SC (06:35)
[2021-10-04 06:36] LABS: Anion Gap 3 (5-15); BUN 11 mg/dL (7-18); BUN/Creat Ratio 15.8 RATIO (10-20); Calcium,Total 7.8 mg/dL (8.5-10.1); Chloride 109 mmol/L (98-107); EST Glomerular Filtration Rate 114 mL/min (>60); Est Glom Filt Rate - Afr Amer 138 mL/min (>60); Estimated Creatinine Clearance 50.49 ml/min; Glucose 98 mg/dL (74-106); Potassium 3.4 mmol/L (3.5-5.1); Sodium Level 142 mmol/L (136-145)
[2021-10-04] MEDS: Menthol/Lanolin/Calamine/Znox 113 GM Tube 1 APPLIC TOPICAL ×3 (06:36→21:41)
[2021-10-04] MEDS: Ramipril 10 MG Capsule PO (08:54)
[2021-10-04] MEDS: Pantoprazole Sodium 40 MG Tablet PO (08:54)
[2021-10-04] MEDS: hydroCHLOROthiazide 25 MG Tablet PO (08:54)
[2021-10-04] MEDS: Metoprolol Tartrate 100 MG Tablet PO (08:54)
[2021-10-04] MEDS: amLODIPine 10 MG Tablet PO (08:55)
[2021-10-04] MEDS: Pentoxifylline 400 MG Tablet PO ×2 (08:55→21:43)
[2021-10-04] MEDS: Senna Tablet 1 TABLET PO (08:55)
[2021-10-04] MEDS: APIXABAN 2.5 MG TABLET PO ×2 (09:26→21:43)
[2021-10-04] MEDS: Dextrose 5%-Lactated Ringers 1,000 ML 75 ML IV ×2 (11:01→22:57)
--- NOTE | 2021-10-04 14:42 | PN.HOSP_ITS ---
Subjective Subjective Doing well, denies any abdominal pain or nausea. He had a small bowel movement and continues to have flatus Objective Data Objective Data Vital Signs: Vital Signs Temp Pulse Resp BP Pulse Ox 97.7 F L 58 L 18 143/90 H 96 10/04/21 08:50 10/04/21 11:00 10/04/21 08:50 10/04/21 08:54 10/04/21 13:25 Oxygen Flow Rate (L/min) 2 Oxygen Delivery Method Room Air Weight: 184 lb 4.903 oz Body Mass Index (BMI) 26.7 Intake & Output: Intake and Output for Last 24 Hours 10/03/21 10/04/21 10/05/21 03:59 03:59 03:59 Intake Total 2303.75 / 2303.75 2106.25 / 2106.25 2473.75 / 2473.75 Output Total 650 / 650 700 / 700 925 / 925 Balance 1653.75 / 1653.75 1406.25 / 1406.25 1548.75 / 1548.75 Medical Nutrition Assessment Dietitian: Malnutrition Criteria Met Start: 09/30/21 12:13 Freq: Status: Active Protocol: Document 10/02/21 13:07 AG (Rec: 10/02/21 13:07 [id number]) Nutrition Malnutrition Evidence of Malnutrition Exists Yes Malnutrition (severe): Acute Illness/Injury Evidenced By Suboptimal Energy Intake ( Severe),Weight Loss (Severe) Intake Problem Inadequate Oral Intake Etiology related to SBO, decreased appetite, nausea, emesis Signs/Symptoms as evidenced by 2kg/2.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 If unable to tolerate PO diet advancement in next 48-72 hours, recommend initiation of nutrition support. Lab / Micro Data Result Diagrams: 10/04/21 04:32 10/04/21 04:22 Labs: Laboratory Results - last 24 hr 10/04/21 04:22: Sodium 142, Potassium 3.4 L, Chloride 109 H, Carbon Dioxide 30.0, Anion Gap 3 L, BUN 11, Creatinine 0.70, Estim Creat Clear Calc 50.49, Est GFR (MDRD) Af Amer 138, Est GFR (MDRD) Non-Af 114, BUN/Creatinine Ratio 15.8, Glucose 98, Calcium 7.8 L 10/04/21 04:32: WBC 4.0 L, RBC 3.19 L, Hgb 9.6 L, Hct 31.0 L, MCV 97.2 H, MCH 30.1, MCHC 31.0 L, RDW Std Deviation 60.2 H, RDW Coeff of Denise 16.8 H, Plt Count 284, MPV 10.5, Immature Gran % (Auto) 0.500, Neut % (Auto) 49.6, Lymph % (Auto) 29.6, Reynolds % (Auto) 15.4 H, Eos % (Auto) 4.7, Baso % (Auto) 0.2, Absolute Neuts (auto) 2.0, Absolute Lymphs (auto) 1.19, Nucleated RBC % 0 Micro: Microbiology 09/30/21 11:15 Interface Orders SARS-CoV-2 Antigen (Rapid) - Final Physical Exam Narrative Const alert, oriented x3 and no apparent distress General Appearance: cooperative HEENT normocephalic and moist oral mucous membranes Eyes PERRL, EOMs intact bilaterally and conjunctivae normal Neck supple and no JVD Resp normal respiratory effort, no retractions, no use of accessory muscles and clear to auscultation bilaterally Auscultation: Negative for crackles, rales, rhonchi or wheezes Cardio regular rate, regular rhythm, S1 normal heart sound, S2 normal heart sound and no murmurs GI soft to palpation and non-tender; Negative for hepatosplenomegaly Inspection: abdominal distention?improving Extremity no clubbing, cyanosis or edema Skin no rashes or lesions noted Neuro no focal motor deficits and no sensory deficits noted Psych affect normal Appearance: appropriate Assessment & Plan Assessment/Plan (1) Small bowel obstruction: PLAN: 1. Distal small bowel obstruction -Ex lap with HAYDEN performed 10/01/2021 -NG tube removed 10/02/2021 -Eliquis remains on hold-->Restart when okay with general surgery -Continue with clear liquid diet, he is passing gas and does not have any nausea but he does still remain somewhat distended in his abdomen -No current pain 2. 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 Paroxysmal A. fib/CAD status post CABG/HTN/HLD/PAD ?Continue with his home blood pressure medications as able ?We will resume Eliquis when able to per general surgery 4. CKD 3 a ?Creatinine stable 5. GERD ?Stable ?Continue with PPI Disposition: TCU DVT: Heparin Charges/Coding Visit Charges Inpatient E&M: 57396 Subs Hosp L2
[2021-10-04] MEDS: Potassium Chloride Oral Tablet 20 MEQ 40 MEQ PO (15:45)
[2021-10-04] MEDS: Atorvastatin Calcium 40 MG Tablet PO (21:43)
[2021-10-05] VITALS (8 sets, daily range): BP systolic 95–140; BP diastolic 57–62; PULSE 68–77; RESP 18; TEMP 36.6; O2SAT 92–95
[2021-10-05] MEDS: Menthol/Lanolin/Calamine/Znox 113 GM Tube 1 APPLIC TOPICAL ×2 (06:11→14:14)
[2021-10-05 06:39] LABS: Anion Gap 4 (5-15); BUN 8 mg/dL (7-18); BUN/Creat Ratio 11.7 RATIO (10-20); Calcium,Total 7.9 mg/dL (8.5-10.1); Chloride 104 mmol/L (98-107); Creatinine, Serum 0.68 mg/dL (0.70-1.30); EST Glomerular Filtration Rate 117 mL/min (>60); Est Glom Filt Rate - Afr Amer 142 mL/min (>60); Estimated Creatinine Clearance 50.49 ml/min; Glucose 109 mg/dL (74-106); Potassium 3.7 mmol/L (3.5-5.1); Sodium Level 137 mmol/L (136-145)
--- NOTE | 2021-10-05 06:47 | PN.SURG_ITS ---
Subjective Subjective The patient reports copious gas with no abdominal pain. He tolerated clears with no nausea or vomiting. Objective Data Objective Data Vital Signs: Vital Signs Temp Pulse Resp BP Pulse Ox 97.8 F 73 18 129/62 H 95 10/05/21 02:55 10/05/21 03:04 10/05/21 02:55 10/05/21 02:55 10/05/21 02:55 Oxygen Flow Rate (L/min) 2 Oxygen Delivery Method Room Air Weight: 184 lb 8.43 oz Body Mass Index (BMI) 26.7 Intake & Output: Intake and Output for Last 24 Hours 10/03/21 10/04/21 10/05/21 23:59 23:59 23:59 Intake Total 2106.25 / 2106.25 3713.75 / 3713.75 Output Total 850 / 950 1175 / 1475 650 / 650 Balance 1256.25 / 1156.25 2538.75 / 2238.75 -650 / -650 Medical Nutrition Assessment Dietitian: Malnutrition Criteria Met Start: 09/30/21 12:13 Freq: Status: Active Protocol: Document 10/02/21 13:07 (Rec: 10/02/21 13:07 [id number]) Nutrition Malnutrition Evidence of Malnutrition Exists Yes Malnutrition (severe): Acute Illness/Injury Evidenced By Suboptimal Energy Intake ( Severe),Weight Loss (Severe) Intake Problem Inadequate Oral Intake Etiology related to SBO, decreased appetite, nausea, emesis Signs/Symptoms as evidenced by 2kg/2.5% 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 If unable to tolerate PO diet advancement in next 48-72 hours, recommend initiation of nutrition support. Lab / Micro Data Result Diagrams: 10/04/21 04:32 10/05/21 05:31 Labs: Laboratory Results - last 24 hr 10/05/21 05:31: Sodium 137, Potassium 3.7, Chloride 104, Carbon Dioxide 29.0, Anion Gap 4 L, BUN 8, Creatinine 0.68 L, Estim Creat Clear Calc 50.49, Est GFR (MDRD) Af Amer 142, Est GFR (MDRD) Non-Af 117, BUN/Creatinine Ratio 11.7, Glucose 109 H, Calcium 7.9 L Micro: Microbiology 09/30/21 11:15 Interface Orders SARS-CoV-2 Antigen (Rapid) - Final Physical Exam Const oriented x3 and no apparent distress Resp normal respiratory effort Cardio regular rate GI soft to palpation and non-tender Assessment & Plan Assessment/Plan (1) Small bowel obstruction: PLAN: Patient reports copious amount of flatus. No bowel movement yet. I will give him a Dulcolax suppository and start a regular diet. If he tolerates regular diet he may be discharged back to the TCU. Alvin Pearson MD Pager: [facility] [address] [place] [address], [address] [place] [address] Office:
[2021-10-05] MEDS: Bisacodyl 10 MG Suppository RC (07:07)
[2021-10-05] MEDS: amLODIPine 10 MG Tablet PO (09:36)
[2021-10-05] MEDS: Pantoprazole Sodium 40 MG Tablet PO (09:36)
[2021-10-05] MEDS: Pentoxifylline 400 MG Tablet PO (09:36)
[2021-10-05] MEDS: APIXABAN 2.5 MG TABLET PO (09:36)
[2021-10-05] MEDS: hydroCHLOROthiazide 25 MG Tablet PO (09:37)
[2021-10-05] MEDS: Ramipril 10 MG Capsule PO (09:37)
--- NOTE | 2021-10-05 10:32 | PCM.TXEXTCAR ---
Diet 10/05/21 06:47 Diet: Regular - General Is pt able to select menu?: No Routine Orders/Code Status Routine Lab Work: CBC and BMP Code Status: DNRCC-A Wound(s) LT HIP: Wound Type: Surgical Incision RT INNER BUTTOCKS: Wound Type: Pressure Injury L HEEL: Wound Type: Pressure Injury ABD: Wound Type: Surgical Incision Therapies Physical Therapy: Eval and Treat Occupational Therapy: Eval and Treat Problem/Diagnosis (1) Small bowel obstruction: Status: Acute Allergies/Procedures Done in Hospital Allergies No Known Drug Allergies Allergy (Verified 09/28/21 08:22) NONE Procedures: - (Exploratory laparoscopy with lysis of adhesions and release of small bowel obstruction) Type of Care/Length of Stay Estimated LOS: Convalescent Care Less Than 30 days Type of Care Needed: Skilled Rehab Potential: Good Prognosis: Good Additional Orders/Day of Discharge Day of Discharge: 10/05/21 Dietary and Speech Recommendations Dietitian Recommendations/Changes: recommend advance diet as tolerated to transitional; ensure w/ medpass when PO diet advanced. If unable to tolerate PO diet advancement in next 48-72 hours, recommend initiation of nutrition support. Discharge Plan Admission Admit Date/Time: 09/28/21 10:40 Attending Provider: Luís Rae Primary Care Provider: David Rios Consulting Providers: Alvin Pearson Discharge Orders/Prescriptions Prescriptions: Continued metoprolol ta-hydrochlorothiaz 100-25 mg tablet 1 tab PO DAILY RF: 0 omega-3 fatty acids-fish oil [Fish Oil] 360-1,200 mg capsule 1 cap PO DAILY RF: 0 multivitamin Tablet 1 tab PO DAILY RF: 0 furosemide [Lasix] 20 mg tablet 20 mg PO DAILY PRN PRN (Reason: Swelling) RF: 0 pentoxifylline 400 MG tablet 400 mg PO BID RF: 0 amlodipine 10 MG tablet 10 mg PO DAILY RF: 0 rosuvastatin 20 MG tablet 20 mg PO QHS RF: 0 ramipril 10 mg capsule 10 mg PO DAILY RF: 0 tramadol 50 mg tablet 50 mg PO Q6H PRN PRN (Reason: Pain) RF: 0 famotidine 20 mg tablet 20 mg PO DAILY RF: 0 sennosides [Senokot] 8.6 mg Tablet 8.6 mg PO BID PRN (Reason: Constipation) RF: 0 ferrous sulfate [FeroSul] 325 mg (65 mg iron) tablet 325 mg PO BID RF: 0 folic acid 1 mg tablet 1 mg PO DAILY RF: 0 Eliquis 2.5 mg tablet 2.5 mg PO BID 10 Days Qty: 20 RF: 0 aspirin 325 mg tablet 81 mg PO DAILY RF: 0 polysaccharide iron complex [Ferrex 150] 150 mg iron capsule 150 mg PO BIDCM RF: 0 acetaminophen 500 mg tablet 1,000 mg PO Q8 RF: 0 pantoprazole 40 mg tablet,delayed release (DR/EC) 40 mg PO DAILY RF: 0 Discontinued doxycycline monohydrate 100 mg capsule 100 mg PO BID Qty: 28 RF: 0 metoprolol tartrate 25 mg tablet 25 mg PO BID RF: 0 Referrals / Follow Up: David Rios MD [Primary Care Provider] - Disposition Disposition (needs filled in before D/C Order can be placed): Nursing Home Facility
--- NOTE | 2021-10-05 14:59 | NURSING ---
Report called to [place] at [facility]
--- NOTE | 2021-10-05 15:14 | PCM.DC.SUM ---
Providers Date of Admission: 09/28/21 Primary Care Physician: David Rios MD Consultations 09/28/21 12:48 Consult: General Surgery Routine Consulting Provider: Alvin Pearson Reason for Consult: sbo EMERGENT Consult: No MD Notified: Yes Date Notified: 09/28/21 Time Notified: 10:48 Method of Notification: Verbal Comments:: Notified by ED, Dr Conner Reason For Visit: SBO Diagnosis Discharge Diagnosis (1) Small bowel obstruction: Status: Acute Code(s): K56.609 - Unspecified intestinal obstruction, unspecified as to partial versus complete obstruction Medications at Discharge Home Medications amlodipine 10 mg PO DAILY 06/23/13 pentoxifylline 400 mg PO BID 06/23/13 rosuvastatin 20 mg PO QHS 06/23/13 metoprolol tartrate 100 mg-hydrochlorothiazide 25 mg tablet 1 tab PO DAILY 02/24/20 multivitamin 1 tab PO DAILY 02/24/20 omega-3 fatty acids-fish oil 360 mg-1,200 mg capsule 1 cap PO DAILY 02/24/20 ramipril 10 mg capsule 10 mg PO DAILY cap 02/24/20 furosemide 20 mg tablet 20 mg PO DAILY PRN PRN tab 07/19/21 famotidine 20 mg PO DAILY 09/08/21 ferrous sulfate [FeroSul] 325 mg PO BID 09/08/21 folic acid 1 mg PO DAILY 09/08/21 sennosides [Senokot] 8.6 mg PO BID PRN 09/08/21 tramadol 50 mg PO Q6H PRN PRN 09/08/21 Eliquis 2.5 mg PO BID 10 Days #20 tab 09/25/21 acetaminophen 1,000 mg PO Q8 09/28/21 aspirin 81 mg PO DAILY 09/28/21 pantoprazole 40 mg PO DAILY 09/28/21 polysaccharide iron complex [Ferrex 150] 150 mg PO BIDCM 09/28/21 Hospital Course Operations - (Exploratory laparoscopy with takedown adhesions and release of small bowel obstruction) Procedures None Summary of Care Provided Minutes Spent on Discharge: 35 Hospital Course: Per HPI: CARIDAD WARD indigo a 86 M was sent to ER from TCU after he started having abdominal pain, distention nausea vomiting. Patient has been in TCU for rehab after left hip ORIF left proximal femur with revision of left THR both components. Patient had periprosthetic Sundown B2 femur fracture and was admitted on 09/08/21. Patient started having nausea and vomiting for 1 day about 4-5 times. Patient is not a good historian and could not tell exact content but was not blood. Currently, patient denies any abdominal pain and he states it has resolved. He could not tell me clearly whether he had abdominal pain in the last 2 to 3 days or 1 week but might be discomfort or mild abdominal pain. It seems patient did not had severe abdominal pain. He had small bowel movement yesterday which was not good or adequate not passing gas adequately for 2 to 3 days. He had appendectomy through midline incision in the past. In ED CT abdomen was done individually reviewed and findings consistent with small bowel obstruction with transition point in distal small bowel. Also noticed mild degree of atherosclerotic calcification of abdominal aorta and major visceral arteries. Patient does not have leukocytosis. Hospital Course: 1. Distal small bowel obstruction?86-year-old male who recently underwent repair for periprosthetic fracture of his left proximal femur on 09/09/2021. He presented with a distal small bowel obstruction and underwent an ex lap with lysis of adhesions. He had fairly quick recovery of bowel function and was able to tolerate a regular diet without any nausea or abdominal pain. He has continued to have gas and has had intermittent small bowel movements. I discussed with him the possibility of discharge today and he expressed understanding of the risk and benefits of discharge and would like to go to the transitional care unit today to start his rehab. Of note he had been not discharged on 28 days of Eliquis which will be completed in 4 days and then he was to return to his 325 mg of aspirin twice daily for his thromboprophylaxis for A. fib. 2. Paroxysmal A. fib, Nigel artery disease status post CABG, hypertension, hyperlipidemia, peripheral artery disease, CKD 3 a, GERD all chronic medical conditions which complicate his care. His home medications were continued where appropriate Physical Exam Narrative Const alert, oriented x3 and no apparent distress General Appearance: cooperative HEENT normocephalic and moist oral mucous membranes Eyes PERRL, EOMs intact bilaterally and conjunctivae normal Neck supple and no JVD Resp normal respiratory effort, no retractions, no use of accessory muscles and clear to auscultation bilaterally Auscultation: Negative for crackles, rales, rhonchi or wheezes Cardio regular rate, regular rhythm, S1 normal heart sound, S2 normal heart sound and no murmurs GI soft to palpation and non-tender; Negative for hepatosplenomegaly Inspection: abdominal distention?improving Extremity no clubbing, cyanosis or edema Skin no rashes or lesions noted Neuro no focal motor deficits and no sensory deficits noted Psych affect normal Appearance: appropriate Medical Records Data Medical Nutrition Assessment Dietitian: Malnutrition Criteria Met Start: 09/30/21 12:13 Freq: Status: Active Protocol: Document 10/02/21 13:07 (Rec: 10/02/21 13:07 [id number]) Nutrition Malnutrition Evidence of Malnutrition Exists Yes Malnutrition (severe): Acute Illness/Injury Evidenced By Suboptimal Energy Intake ( Severe),Weight Loss (Severe) Intake Problem Inadequate Oral Intake Etiology related to SBO, decreased appetite, nausea, emesis Signs/Symptoms as evidenced by 2kg/2.5% 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 If unable to tolerate PO diet advancement in next 48-72 hours, recommend initiation of nutrition support. Weight / BMI Weight Weight: 184 lb 8.43 oz Body Mass Index (BMI) 26.7 ABG / Lab / Microbiology Data Result Diagrams: 10/04/21 04:32 10/05/21 05:31 Laboratory: Laboratory Results - last 24 hr 10/05/21 05:31: Sodium 137, Potassium 3.7, Chloride 104, Carbon Dioxide 29.0, Anion Gap 4 L, BUN 8, Creatinine 0.68 L, Estim Creat Clear Calc 50.49, Est GFR (MDRD) Af Amer 142, Est GFR (MDRD) Non-Af 117, BUN/Creatinine Ratio 11.7, Glucose 109 H, Calcium 7.9 L Microbiology: Microbiology 09/30/21 11:15 Interface Orders SARS-CoV-2 Antigen (Rapid) - Final Meaningful Use Info Meaningful Use Diagnoses (Choose all that apply): None applicable Discharge Plan Admission Admit Date/Time: 09/28/21 10:40 Attending Provider: Luís Rae Primary Care Provider: David Rios Consulting Providers: Alvin Pearson Discharge Orders/Prescriptions Prescriptions: Continued metoprolol ta-hydrochlorothiaz 100-25 mg tablet 1 tab PO DAILY RF: 0 omega-3 fatty acids-fish oil [Fish Oil] 360-1,200 mg capsule 1 cap PO DAILY RF: 0 multivitamin Tablet 1 tab PO DAILY RF: 0 furosemide [Lasix] 20 mg tablet 20 mg PO DAILY PRN PRN (Reason: Swelling) RF: 0 pentoxifylline 400 MG tablet 400 mg PO BID RF: 0 amlodipine 10 MG tablet 10 mg PO DAILY RF: 0 rosuvastatin 20 MG tablet 20 mg PO QHS RF: 0 ramipril 10 mg capsule 10 mg PO DAILY RF: 0 tramadol 50 mg tablet 50 mg PO Q6H PRN PRN (Reason: Pain) RF: 0 famotidine 20 mg tablet 20 mg PO DAILY RF: 0 sennosides [Senokot] 8.6 mg Tablet 8.6 mg PO BID PRN (Reason: Constipation) RF: 0 ferrous sulfate [FeroSul] 325 mg (65 mg iron) tablet 325 mg PO BID RF: 0 folic acid 1 mg tablet 1 mg PO DAILY RF: 0 Eliquis 2.5 mg tablet 2.5 mg PO BID 10 Days Qty: 20 RF: 0 aspirin 325 mg tablet 81 mg PO DAILY RF: 0 polysaccharide iron complex [Ferrex 150] 150 mg iron capsule 150 mg PO BIDCM RF: 0 acetaminophen 500 mg tablet 1,000 mg PO Q8 RF: 0 pantoprazole 40 mg tablet,delayed release (DR/EC) 40 mg PO DAILY RF: 0 Discontinued doxycycline monohydrate 100 mg capsule 100 mg PO BID Qty: 28 RF: 0 metoprolol tartrate 25 mg tablet 25 mg PO BID RF: 0 Referrals / Follow Up: David Rios MD [Primary Care Provider] - Disposition Disposition (needs filled in before D/C Order can be placed): Alf Facility Charges/Coding Visit Charges Inpatient E&M: 59895 Disch Hosp
== END 2021-10-05 15:15 | disposition skilled nursing facility (03) | DRG 337 ==
LOC: ED 10:46 → PCU 10:54
PROVIDERS: Anesthesiology; Internal Medicine; Surgery; Admitting Provider Internal Medicine; Emergency Provider Emergency Medicine; PCP Family Medicine; Visit Provider Family Medicine
PROC: 0DN84ZZ Release Small Intestine, Percutaneous Endoscopic Approach (ICD-10-PCS; CPT 49320; principal; 2021-10-01 12:15)
DX: K56.609 Unspecified intestinal obstruction, unspecified as to partial versus complete obstruction (principal); L89.622 Pressure ulcer of left heel, stage 2; S09.90XA Unspecified injury of head, initial encounter; I48.0 Paroxysmal atrial fibrillation; I73.9 Peripheral vascular disease, unspecified; N18.31 Chronic kidney disease, stage 3a; E78.5 Hyperlipidemia, unspecified; I25.10 Atherosclerotic heart disease of native coronary artery without angina pectoris; M19.90 Unspecified osteoarthritis, unspecified site; I25.2 Old myocardial infarction; N40.0 Benign prostatic hyperplasia without lower urinary tract symptoms; I12.9 Hypertensive chronic kidney disease with stage 1 through stage 4 chronic kidney disease, or unspecified chronic kidney disease; K21.9 Gastro-esophageal reflux disease without esophagitis; I44.0 Atrioventricular block, first degree; I45.10 Unspecified right bundle-branch block; D64.9 Anemia, unspecified; K66.0 Peritoneal adhesions (postprocedural) (postinfection); E66.9 Obesity, unspecified; F32.A Depression, unspecified; H91.93 Unspecified hearing loss, bilateral; M81.0 Age-related osteoporosis without current pathological fracture; Z79.899 Other long term (current) drug therapy; Z79.82 Long term (current) use of aspirin; Z95.1 Presence of aortocoronary bypass graft; Z87.891 Personal history of nicotine dependence; Z90.49 Acquired absence of other specified parts of digestive tract; Z96.642 Presence of left artificial hip joint; I49.1 Atrial premature depolarization; R13.10 Dysphagia, unspecified; Z68.26 Body mass index [BMI] 26.0-26.9, adult
CPT/HCPCS: 36415; 70450; 74018; 74177; 74250; 80048; 80053; 82962; 83690; 83735; 84100; 85025; 85730; 87426; 93005; 94640; 97110; 97162; 97166; 97530; 97535; 97802; 97803; 99251; 99285; J7120; Q9967; A4216; G0463; J0330; J2405

== ENCOUNTER 2021-10-05 15:40 | Inpatient (IN) | payer MEDICARE, SELFPAY ==
[2021-10-05 15:46] VITALS: BMI 27.7
[2021-10-05 15:48] VITALS: BP 142/50; PULSE 63; RESP 18; TEMP 36.7; O2SAT 97
[2021-10-05 16:18] VITALS: PULSE 63; RESP 18
[2021-10-05] MEDS: APIXABAN 2.5 MG TABLET PO (18:32)
[2021-10-05] MEDS: Pentoxifylline 400 MG Tablet PO (18:32)
--- NOTE | 2021-10-05 18:40 | HP.PCM_ITS ---
HPI - General General Date of Admission: 10/05/21 HPI Narrative CARIDAD WARD, is a 86 Male TCU resident after ORIF left proximal femur fracture with revision of left total hip arthroplasty, both components. 09/28/2021 Presented to [facility] Emergency Department with small bowel obstruction on X-ray. CT abdomen/pelvis shows small bowel obstruction with transition point in distal small bowel. NG tube placed. 09/28/2021 Admit to Hospital. NPO, IVF, NG suction, consult General Surgery for small bowel obstruction. 09/29/2021 Abdominal distention, vomited x 2. Barium swallow today. Hold Eliquis in case of surgery. 09/30/2021 NG bilious aspirate, no flatus or bowel movement. Barium contrast showed no advancement of contrast. Acute kidney injury resolved. 10/01/2021 Dr. Pearson performed exploratory laparotomy with takedown of adhesions and release of small bowel obstruction. 10/01/2021 Confused, NG in place. PT/OT for TCU. 10/02/2021 Less confused, passed flatus, NG removed. NPO except for ice chips. 10/03/2021 No abdominal pain, passing gas, no bowel movement. Eliquis on hold. 10/04/2021 Small bowel movement, passing gas. Resume Eliquis when okay with general surgery. 10/05/2021 Admit to TCU with debility, here for rehabilitation, strengthening, prior to discharge home with . [facility] Medical History (Updated 10/05/21 @ 18:[address] 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 Venous insufficiency of both lower extremities Home Medications amlodipine 10 mg PO DAILY 06/23/13 [History Last Taken 10/05/21 10:00] pentoxifylline 400 mg PO BID 06/23/13 [History Last Taken 10/05/21 10:00] rosuvastatin 20 mg PO QHS 06/23/13 [History Last Taken 10/04/21 22:00] metoprolol tartrate 100 mg-hydrochlorothiazide 25 mg tablet 1 tab PO DAILY 02/24/20 [History Last Taken 08/13/21] multivitamin 1 tab PO DAILY 02/24/20 [History Last Taken Unknown] omega-3 fatty acids-fish oil 360 mg-1,200 mg capsule 1 cap PO DAILY 02/24/20 [History Last Taken Unknown] ramipril 10 mg capsule 10 mg PO DAILY cap 02/24/20 [History Last Taken 10/05/21 10:00] furosemide 20 mg tablet 20 mg PO DAILY PRN PRN tab 07/19/21 [History Last Taken Unknown] famotidine 20 mg PO DAILY 09/08/21 [History Last Taken Unknown] ferrous sulfate [FeroSul] 325 mg PO BID 09/08/21 [History Last Taken Unknown] folic acid 1 mg PO DAILY 09/08/21 [History Last Taken Unknown] sennosides [Senokot] 8.6 mg PO BID PRN 09/08/21 [History Last Taken 10/04/21 09:00] tramadol 50 mg PO Q6H PRN PRN 09/08/21 [History Last Taken Unknown] Eliquis 2.5 mg PO BID 10 Days #20 tab 09/25/21 [Rx Last Taken 10/05/21 10:00] acetaminophen 1,000 mg PO Q8 09/28/21 [History Last Taken 10/05/21 10:00] aspirin 325 mg PO DAILY 09/28/21 [History Last Taken Unknown] pantoprazole 40 mg PO DAILY 09/28/21 [History Last Taken 10/05/21 10:00] polysaccharide iron complex [Ferrex 150] 150 mg PO BIDCM 09/28/21 [History Last Taken Unknown] Allergy/AdvReac Type Severity Reaction Status Date / Time No Known Drug Allergies Allergy NONE Verified 09/28/21 08:22 Family History Mother CAD (coronary artery disease) Sister Cancer lung Surgical History (Updated 10/05/21 @ 18:[address] Pipe Damon MD) H/O coronary artery bypass surgery (1983) History of appendectomy History of carpal tunnel release History of exploratory laparotomy History of left heart catheterization (08/13/21) History of right hip replacement History of surgical removal of skin lesion History of total bilateral knee replacement History of total left hip replacement Social History household members: spouse Smoking Status: Former smoker alcohol intake: never substance use type: does not use ROS Constitutional Constitutional: Denies chills, fever(s) or weight gain ENT HEENT: Denies headache(s), nasal congestion or nasal discharge Cardiovascular Cardiovascular: Denies chest pain or palpitations Respiratory/Chest Respiratory/Chest: Denies cough, excessive phlegm production or shortness of breath with exertion Gastrointestinal Gastrointestinal: Denies abdominal pain, nausea or vomiting Genitourinary Genitourinary: Denies dysuria Musculoskeletal Musculoskeletal: Denies joint pain or joint swelling Integumentary Integumentary: Denies rash or wounds Neurologic Neurologic: Denies focal weakness, numbness or tingling Psychiatric Psychiatric: Denies anxiety, auditory hallucinations, depression, homicidal ideation or suicidal ideation Vital Signs Vital Signs Vital Signs: 10/05/21 15:48 10/05/21 16:18 Temperature 98.1 F Temperature Source Oral Pulse Rate 63 63 Pulse Rhythm Irregular Pulse Strength Normal (2+) Respiratory Rate 18 18 Respiratory Effort Normal Non-Labored Respiratory Depth Normal Respiratory Pattern Normal Blood Pressure 142/50 H Blood Pressure Mean 80 Blood Pressure Source Monitor Blood Pressure Position Semi-Fowlers Blood Pressure Location Right Arm Pulse Ox 97 Oxygen Delivery Method Room Air Room Air Weight Weight: 80.377 kg Body Mass Index (BMI) 27.7 Physical Exam Const alert and oriented x3 General Appearance: cooperative HEENT normocephalic Eyes PERRL and EOMs intact bilaterally Neck supple, no JVD and no carotid bruits Resp normal respiratory effort, normal air movement and clear to auscultation bilaterally Cardio regular rate and regular rhythm GI normal to inspection, nondistended, normoactive bowel sounds, non-tender and non-distended Extremity normal capillary refill General Extremity: Negative for edema Skin no rashes or lesions noted General Skin Exam: no breakdown Psych affect normal Appearance: appropriate Assessment & Plan Assessment/Plan (1) Debility: (2) Small bowel obstruction: (3) Acute kidney injury: (4) 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 Pearson, admitted to TCU with debility, here for rehabilitation, strengthening, prior to discharge home with . * Debility - PT/OT. * Pain - Tylenol 1000mg q8, Tramadol 50mg q6h prn pain (1-10). * Bowel - Miralax 17gm daily, Senna/colace 1 tablet bid, Dulcolax 10mg daily prn. * Adult immunization - Administer prevnar 13, pneumovax 23, fluzone, covid19 vaccine as appropriate. * DVT prophylaxis - Eliquis 2.5mg bid thru 10/08/2021, then aspirin 81mg daily. * Hypertension - Metoprolol 100mg daily, Ramipril 10mg daily, Amlodipine 10mg da lisa, HCTZ 25mg daily. * Coronary artery disease - Metoprolol 100mg daily, Ramipril 10mg daily, Aspirin 81mg daily. * Hyperlipidemia - Atorvastatin 40mg qhs, [place] 3 1gm daily. * Folate deficiency - Folic acid 1mg daily. * Edema - Lasix 20mg daily prn. * Iron deficiency anemia - Ferrex 150mg bid. * Nutrition - MVI daily. * GERD - Pantoprazole 40mg daily. * PAOD - Trental 400mg bid, Aspirin 81mg daily. * Small bowel obstruction status exploratory laparotomy with take adhesions, release small bowel obstruction - Consult Dr. Pearson to follow.
[2021-10-06] MEDS: Polyethylene Glycol 3350 17 GM PACKET PO (05:06)
[2021-10-06] MEDS: Senna/Docusate Sodium 1 Tablet PO (05:06)
[2021-10-06] MEDS: Omega-3 Acid Ethyl Esters 1 GM Capsule PO (05:06)
[2021-10-06] MEDS: Pantoprazole Sodium 40 MG Tablet PO (05:06)
[2021-10-06] MEDS: hydroCHLOROthiazide 25 MG Tablet PO (05:06)
[2021-10-06] MEDS: APIXABAN 2.5 MG TABLET PO ×2 (05:06→17:38)
[2021-10-06] MEDS: Ramipril 10 MG Capsule PO (05:06)
[2021-10-06] MEDS: Pentoxifylline 400 MG Tablet PO ×2 (05:06→17:39)
[2021-10-06] MEDS: amLODIPine 10 MG Tablet PO (05:06)
[2021-10-06 05:07] VITALS: BP 136/68; PULSE 90
[2021-10-06] MEDS: Acetaminophen 500 MG Tablet 1000 MG PO ×3 (05:07→20:51)
[2021-10-06] MEDS: Folic Acid 1 MG Tablet PO (05:07)
[2021-10-06] MEDS: Metoprolol Tartrate 100 MG Tablet PO (05:07)
--- NOTE | 2021-10-06 06:44 | NURSING ---
Pt had emesis x 1 shortly after shift change. Refused HS lipitor. Meds taken whole with applesauce in AM. Checked with patient an hours later and stated no emesis and only a little stomach discomfort. Advised pt to take med with applesauce or some type of food.
[2021-10-06 06:47] LABS: Absolute Lymphocyte Count 1.23 X10^3/uL (0.83-4.51); Absolute Neutrophil Count 6.8 X10^3/uL (2.0-7.7); Basophil# 0.02 X10^3/uL; Basophil% 0.2 % (0-1); Eosinophil# 0.65 X10^3/uL; Eosinophils% 6.7 % (0-5); Hematocrit 28.9 % (40-54); Hemoglobin 9.1 g/dL (13.0-16.5); Lymphocyte # 1.23 X10^3/ul (0.83-4.51); Lymphocyte % 12.7 % (19-41); Mean Corp Hgb Conc 31.5 g/dL (32-36); Mean Corpuscular Hgb 29.8 pg (27.0-32.0); Mean Corpuscular Volume 94.8 fL (80-94); Mean Platelet Vol. 9.8 fl (6.2-12.0); Monocyte# 0.91 X10^3/uL; Monocyte% 9.4 % (0-10); NRBC Flagged by Analyzer 0 % (0-5); Neutrophil # 6.83 X10^3/uL (2.7-7.7); Neutrophil % 70.5 % (47-70); Platelet Count 258 K/mm3 (150-450); RBC Distribution Width CV 16.3 % (11.6-14.6); RBC Distribution Width SD 56.8 fl (35.1-43.9); Red Blood Count 3.05 M/mm3 (4.6-6.2); White Blood Count 9.7 K/mm3 (4.4-11.0)
[2021-10-06 07:07] LABS: Anion Gap 4 (5-15); BUN 10 mg/dL (7-18); BUN/Creat Ratio 15.3 RATIO (10-20); Calcium,Total 7.8 mg/dL (8.5-10.1); Chloride 103 mmol/L (98-107); Creatinine, Serum 0.65 mg/dL (0.70-1.30); EST Glomerular Filtration Rate 123 mL/min (>60); Est Glom Filt Rate - Afr Amer 149 mL/min (>60); Estimated Creatinine Clearance 50.49 ml/min; Glucose 92 mg/dL (74-106); Potassium 3.7 mmol/L (3.5-5.1); Sodium Level 136 mmol/L (136-145)
[2021-10-06] MEDS: Multivitamins,Therapeutic Tablet 1 TABLET PO (08:52)
[2021-10-06] MEDS: Iron Polysaccharide Complex 150 MG CAPSULE PO ×2 (08:52→17:37)
[2021-10-06 16:00] VITALS: BP 94/45; PULSE 63; RESP 16; TEMP 36.4; O2SAT 92
[2021-10-06 17:36] VITALS: BP 113/55; PULSE 59
[2021-10-06 20:22] VITALS: PULSE 74; RESP 14; O2SAT 90
[2021-10-06] MEDS: 0.9% Saline Lock 10 ML Syringe IV (20:51)
[2021-10-06] MEDS: Atorvastatin Calcium 40 MG Tablet PO (20:51)
[2021-10-06 23:38] VITALS: PULSE 73; RESP 16; O2SAT 92
[2021-10-07] MEDS: APIXABAN 2.5 MG TABLET PO ×2 (06:10→16:28)
[2021-10-07] MEDS: Pantoprazole Sodium 40 MG Tablet PO (06:10)
[2021-10-07] MEDS: Acetaminophen 500 MG Tablet 1000 MG PO ×3 (06:10→22:58)
[2021-10-07 06:11] VITALS: BP 115/50; PULSE 66
[2021-10-07] MEDS: Metoprolol Tartrate 100 MG Tablet PO (06:11)
[2021-10-07] MEDS: Pentoxifylline 400 MG Tablet PO ×2 (06:11→16:29)
[2021-10-07] MEDS: Omega-3 Acid Ethyl Esters 1 GM Capsule PO (06:12)
[2021-10-07] MEDS: Ramipril 10 MG Capsule PO (06:12)
[2021-10-07] MEDS: hydroCHLOROthiazide 25 MG Tablet PO (06:12)
[2021-10-07] MEDS: Folic Acid 1 MG Tablet PO (06:14)
[2021-10-07 07:44] VITALS: O2SAT 96
[2021-10-07 08:46] VITALS: BP 95/40; PULSE 48; RESP 18
[2021-10-07] MEDS: Iron Polysaccharide Complex 150 MG CAPSULE PO ×2 (08:50→16:28)
[2021-10-07] MEDS: Multivitamins,Therapeutic Tablet 1 TABLET PO (08:50)
[2021-10-07 16:00] VITALS: BP 115/53; PULSE 58; RESP 16; TEMP 36.4; O2SAT 96
[2021-10-07] MEDS: Atorvastatin Calcium 40 MG Tablet PO (22:58)
[2021-10-08 05:00] VITALS: BP 123/50; PULSE 72
[2021-10-08] MEDS: APIXABAN 2.5 MG TABLET PO ×2 (05:00→17:02)
[2021-10-08] MEDS: Metoprolol Tartrate 100 MG Tablet PO (05:00)
[2021-10-08] MEDS: Pantoprazole Sodium 40 MG Tablet PO (05:00)
[2021-10-08] MEDS: Acetaminophen 500 MG Tablet 1000 MG PO ×3 (05:00→21:03)
[2021-10-08] MEDS: Folic Acid 1 MG Tablet PO (05:01)
[2021-10-08] MEDS: hydroCHLOROthiazide 25 MG Tablet PO (05:01)
[2021-10-08] MEDS: Ramipril 10 MG Capsule PO (05:01)
[2021-10-08] MEDS: Pentoxifylline 400 MG Tablet PO ×2 (05:01→17:03)
[2021-10-08] MEDS: Omega-3 Acid Ethyl Esters 1 GM Capsule PO (05:01)
--- NOTE | 2021-10-08 09:14 | CASEMGMT ---
Social Work Completed initial assessment. Explained [facility] insurance with NRD 10/09 and continued stay is not guaranteed with each review. Pt confirms DNR-CCA, no intubation and no changes to MOLST. The goal is for pt to return home with and dtr assistance. [facility] [place]. to continue to follow. Vicki Andrew, [employer] DISHCLOTH FOLDER
[2021-10-08] MEDS: Multivitamins,Therapeutic Tablet 1 TABLET PO (09:27)
[2021-10-08] MEDS: Iron Polysaccharide Complex 150 MG CAPSULE PO ×2 (09:27→17:02)
[2021-10-08] MEDS: amLODIPine 10 MG Tablet PO (09:28)
--- NOTE | 2021-10-08 10:53 | PN.SURG_ITS ---
Subjective Subjective I saw the patient today and he reports that he is tolerating a diet and having bowel movements and flatus Objective Data Objective Data Vital Signs: Vital Signs Temp Pulse Resp BP Pulse Ox 97.5 F L 72 16 123/50 H 96 10/07/21 16:00 10/08/21 05:00 10/07/21 16:00 10/08/21 05:00 10/07/21 16:00 Oxygen Flow Rate (L/min) 1 Oxygen Delivery Method Room Air Weight: 177 lb 3.2 oz Body Mass Index (BMI) 27.7 Intake & Output: Intake and Output for Last 24 Hours 10/06/21 10/07/21 10/08/21 23:59 23:59 23:59 Intake Total 480 / 480 480 / 480 120 / 120 Balance 480 / 480 480 / 480 120 / 120 Lab / Micro Data Result Diagrams: 10/06/21 06:35 10/06/21 06:35 Physical Exam Const oriented x3 and no apparent distress GI soft to palpation and non-tender Assessment & Plan Assessment/Plan (1) Small bowel obstruction: PLAN: Patient seems to doing well. I informed the nurse that he may remove his bandages and shower. He can follow-up as needed with me. Diet and activity as tolerated. Alvin Pearson MD Pager: [facility] [address] [place] [address], [address] [place] [address] Office:
[2021-10-08 13:15] VITALS: O2SAT 97
[2021-10-08 14:12] VITALS: BP 105/50; PULSE 54; RESP 16; TEMP 36.4; O2SAT 98
[2021-10-08] MEDS: Atorvastatin Calcium 40 MG Tablet PO (21:04)
[2021-10-09] MEDS: Acetaminophen 500 MG Tablet 1000 MG PO ×3 (06:11→21:08)
[2021-10-09] MEDS: Pentoxifylline 400 MG Tablet PO ×2 (06:11→16:58)
[2021-10-09] MEDS: Omega-3 Acid Ethyl Esters 1 GM Capsule PO (06:11)
[2021-10-09] MEDS: Pantoprazole Sodium 40 MG Tablet PO (06:11)
[2021-10-09] MEDS: Polyethylene Glycol 3350 17 GM PACKET PO (06:12)
[2021-10-09] MEDS: hydroCHLOROthiazide 25 MG Tablet PO (06:12)
[2021-10-09] MEDS: Ramipril 10 MG Capsule PO (06:12)
[2021-10-09] MEDS: Folic Acid 1 MG Tablet PO (06:12)
[2021-10-09 06:18] VITALS: BP 126/68; PULSE 87
[2021-10-09] MEDS: Metoprolol Tartrate 100 MG Tablet PO (06:18)
[2021-10-09 07:29] VITALS: O2SAT 98
[2021-10-09] MEDS: Multivitamins,Therapeutic Tablet 1 TABLET PO (08:19)
[2021-10-09] MEDS: Aspirin 81 MG TAB.CHEW PO (08:19)
[2021-10-09 08:24] VITALS: BP 98/43
--- NOTE | 2021-10-09 11:13 | PCM.PN.RX ---
Progress Note - Pharmacy Subjective: TCU ADMISSION Objective: Allergies No Known Drug Allergies Allergy (Verified 09/28/21 08:22) NONE Current Medications Generic Name Dose Route Start Last Admin Trade Name Ralph PRN Reason Stop Dose Admin Acetaminophen 1,000 mg 10/05/21 22:00 10/09/21 06:11 Acetaminophen 500 Mg Tablet PO 1,000 mg Q8 FAITH Administration Amlodipine Besylate 10 mg 10/07/21 08:00 10/09/21 08:22 Amlodipine 10 Mg Tablet PO Not Given 0800 FAITH Aspirin 81 mg 10/09/21 08:00 10/09/21 08:19 Aspirin 81 Mg Tab.Chew PO 81 mg BREAKFAST FAITH Administration Atorvastatin Calcium 40 mg 10/05/21 22:00 10/08/21 21:04 Atorvastatin Calcium 40 Mg Tablet PO 40 mg QHS FAITH Administration Bisacodyl 10 mg 10/05/21 19:00 Bisacodyl 5 Mg Tablet PO DAILY PRN Constipation Folic Acid 1 mg 10/06/21 06:00 10/09/21 06:12 Folic Acid 1 Mg Tablet PO 1 mg DAILY FAITH Administration Furosemide 20 mg 10/05/21 17:06 Furosemide 20 Mg Tablet PO DAILY PRN PRN Swelling Hydrochlorothiazide 25 mg 10/06/21 06:00 10/09/21 06:12 Hydrochlorothiazide 25 Mg Tablet PO 25 mg DAILY FAITH Administration Metoprolol Tartrate 100 mg 10/06/21 06:00 10/09/21 06:18 Metoprolol Tartrate 100 Mg Tablet PO 100 mg DAILY FAITH Administration Multivitamins 1 tablet 10/06/21 08:00 10/09/21 08:19 Multivitamins,Therapeutic Tablet PO 1 tablet BREAKFAST FAITH Administration Nutritional Formula (Lactose Free) 118 ml 10/06/21 12:45 10/09/21 08:18 Ensure Compact 118 Ml Liquid PO 118 ml TIDCM FAITH Administration Emtfi-0-Ylyg Ethyl Esters 1 gm 10/06/21 06:00 10/09/21 06:11 [place]-3 Acid Ethyl Esters 1 Gm Capsule PO 1 gm DAILY FAITH Administration Pantoprazole Sodium 40 mg 10/06/21 06:00 10/09/21 06:11 Pantoprazole Sodium 40 Mg Tablet PO 40 mg DAILY FAITH Administration Pentoxifylline 400 mg 10/05/21 18:00 10/09/21 06:11 Pentoxifylline 400 Mg Tablet PO 400 mg BID FAITH Administration Polyethylene Glycol 17 gm 10/06/21 06:00 10/09/21 06:12 Polyethylene Glycol 3350 17 Gm Packet PO 17 gm DAILY FAITH Administration Polysaccharide Iron Complex 150 mg 10/06/21 08:00 10/09/21 08:15 Iron Polysaccharide Complex 150 Mg Capsule PO Not Given BIDCM FAITH Ramipril 10 mg 10/06/21 06:00 10/09/21 06:12 Ramipril 10 Mg Capsule PO 10 mg DAILY FAITH Administration Senna/Docusate Sodium 1 tablet 10/06/21 06:00 10/09/21 06:15 Senna/Docusate Sodium 1 Tablet PO Not Given BID FAITH Sodium Chloride 10 - 40 ml 10/05/21 15:58 10/06/21 20:51 0.9% Saline Lock 10 Ml Syringe IV 10 ml UD PRN Administration SALINE FLUSH Tramadol HCl 50 mg 10/05/21 17:06 Tramadol 50 Mg Tablet PO Q6H PRN PRN Pain Score 1-10 Problem List (Last Reviewed 10/05/21 @ 18:[address] Pipe Damon MD) Iron deficiency anemia (Acute) Edema (Acute) Periprosthetic fracture around internal prosthetic left hip joint (Acute) Acute kidney injury (Acute) Debility (Acute) Small bowel obstruction (Acute) Coronary artery disease (Acute) Gastroesophageal reflux disease (Acute) Atrial fibrillation (Acute) Hyperlipidemia (Acute) Peripheral arterial occlusive disease (Acute) Hypertension (Chronic) Vital Signs Temp Pulse Resp BP Pulse Ox 97.5 F L 87 16 98/43 L 98 10/08/21 14:12 10/09/21 06:18 10/08/21 14:12 10/09/21 08:24 10/09/21 07:29 Oxygen Flow Rate (L/min) 2 Oxygen Delivery Method Room Air Weight: 80.377 kg Body Mass Index (BMI) 27.7 Sodium 136 mmol/L (136-145) 10/06/21 06:35 Potassium 3.7 mmol/L (3.5-5.1) 10/06/21 06:35 Chloride 103 mmol/L (98-107) 10/06/21 06:35 Carbon Dioxide 29.0 mmol/L (21.0-32.0) 10/06/21 06:35 Anion Gap 4 (5-15) L 10/06/21 06:35 BUN 10 mg/dL (7-18) 10/06/21 06:35 Creatinine 0.65 mg/dL (0.70-1.30) L 10/06/21 06:35 Est GFR (MDRD) Af Amer 149 mL/min (>60) 10/06/21 06:35 Est GFR (MDRD) Non-Af 123 mL/min (>60) 10/06/21 06:35 BUN/Creatinine Ratio 15.3 RATIO (10-20) 10/06/21 06:35 Glucose 92 mg/dL (74-106) 10/06/21 06:35 Assessment/Plan: 1. Pain: Tylenol 1000mg PO Q8h, Tramadol 50mg PO Q6h PRN Pain 1-10. Please continue to monitor for increased/decreased S/S pain, PRN medication usage, oversedation. 2. HTN/CAD: Norvasc 10mg PO Daily, Lopressor 100mg PO Daily, HCTZ 25mg PO Daily, Ramipril 10mg PO Daily. Please continue to monitor Bp (last 98/43), pulse (last 87), electrolytes, S/S hypotension. 3. HLD/CAD: Lipitor 40mg PO QHS, [place] 1g PO Daily. Please continue to monitor lipid panel at least annually or sooner if clinically indicated (last lipid panel done 02/16/21 per [facility] system). 4. PAOD: Trental 400mg PO BID, Aspirin 81mg PO Daily. Please continue to monitor for GI side effects (nausea/vomiting), S/S bleeding/bruising. 5. Edema: Lasix 20mg PO Daily PRN. Please continue to monitor I/O status, electrolytes, S/S edema. 6. GERD: Protonix 40mg PO Daily. Please continue to monitor for S/S GERD flare-ups, magnesium levels (last WNL 09/22). Please also encourage non-pharmacologic treatments to help minimize GERD flare-ups. 7. GI Prophylaxis: Aspirin 81mg PO Daily. Please continue to monitor H/H, S/S bleeding/bruising. 8. General Wellness: Folic acid 1mg PO Daily, MVI 1 tab PO Daily, Ferrex 150mg PO Daily. Please continue to monitor labs as clinically indicated. Psychotropic Medications: None Unnecessary Medications: None Bowel Regimen: Miralax 17g PO Daily, Senna/Docusate 1 tab PO BID, Dulcolax 10mg PO Daily PRN. Please continue to monitor for increased/decreased constipation and/or diarrhea. Patient has had reported loose stools preventing scheduled administration, as well as the patient refusing doses. Please consider changing to PRN status if this continues, thank you. Date of Note:: 10/09/21
[2021-10-09 13:46] VITALS: BP 104/56; PULSE 63; RESP 16; TEMP 36.5; O2SAT 96
--- NOTE | 2021-10-09 15:33 | CHAPLAIN ---
Type of Pastoral Visit ___ Initial Visit _x__ Follow-up Visit ___ On-call Visit ___ General Patient Visit ___ Spiritual Assessment ___ Family Conference ___ Bereavement ___ Rapid Response ___ Code Blue ___ Other (describe below) Pastoral Care Referral From _x_ Patient ___ Family ___ Nurse ___ Physician ___ Human Capital Consultant ___ Public Relations Officer ___ Other (describe below) Sacrament/Intervention _x__ Active listening ___ Anointing ___ Jewish ___ Bereavement ___ Communion ___ Stacey exploration ___ _x__ Life review _x__ Prayer ___ Reconciliation ___ Sacrament of Sick _x__ Supportive presence ___ Wedding ___ Other (describe below) Pastoral Comments patient gives review of his health history and more recent health concerns; pt states that can hardly believe I'm still here after all I've gone through; pt acknowledges great help from one daughter; pt states that I've not been very anglican in my life but you can pray for me; after prayer the pt is tearful and expresses thanks for the visit, support, and prayer
[2021-10-09 16:22] VITALS: PULSE 59; O2SAT 98
[2021-10-09] MEDS: Iron Polysaccharide Complex 150 MG CAPSULE PO (16:58)
[2021-10-09] MEDS: Atorvastatin Calcium 40 MG Tablet PO (21:09)
[2021-10-10] MEDS: Pantoprazole Sodium 40 MG Tablet PO (04:42)
[2021-10-10] MEDS: Ramipril 10 MG Capsule PO (04:42)
[2021-10-10] MEDS: Acetaminophen 500 MG Tablet 1000 MG PO ×3 (04:42→21:25)
[2021-10-10] MEDS: Folic Acid 1 MG Tablet PO (04:42)
[2021-10-10] MEDS: Omega-3 Acid Ethyl Esters 1 GM Capsule PO (04:42)
[2021-10-10] MEDS: hydroCHLOROthiazide 25 MG Tablet PO (04:42)
[2021-10-10 04:43] VITALS: BP 125/60; PULSE 70
[2021-10-10] MEDS: Pentoxifylline 400 MG Tablet PO ×2 (04:43→17:04)
[2021-10-10] MEDS: Metoprolol Tartrate 100 MG Tablet PO (04:43)
[2021-10-10] MEDS: Aspirin 81 MG TAB.CHEW PO (08:06)
[2021-10-10] MEDS: Iron Polysaccharide Complex 150 MG CAPSULE PO ×2 (08:06→17:04)
[2021-10-10] MEDS: Multivitamins,Therapeutic Tablet 1 TABLET PO (08:07)
[2021-10-10 08:08] VITALS: BP 97/46; PULSE 57
--- NOTE | 2021-10-10 10:05 | CASEMGMT ---
Social Work IDT met with patient, and son for care plan meeting. Discussed patient's progress in PT/OT/ST and nursing. Explained [employer] insurance with NRD 10/09 and continued stay is not guaranteed. Confirmed the goal is for pt to return home with and dtr assistance. SW to order HHC and DME as indicated. SW to continue to follow. Vicki Andrew, AUTO BODY REPAIR TECHNICIAN PRODUCT DEVELOPMENT CONSULTANT
[2021-10-10 15:41] VITALS: BP 112/57; PULSE 54; RESP 18; TEMP 36.8; O2SAT 94
[2021-10-10 20:37] VITALS: PULSE 69; RESP 14; O2SAT 93
[2021-10-10] MEDS: Atorvastatin Calcium 40 MG Tablet PO (21:25)
[2021-10-11 06:08] VITALS: BP 141/56; PULSE 84
[2021-10-11] MEDS: Pentoxifylline 400 MG Tablet PO ×2 (06:08→16:31)
[2021-10-11] MEDS: Pantoprazole Sodium 40 MG Tablet PO (06:08)
[2021-10-11] MEDS: Metoprolol Tartrate 100 MG Tablet PO (06:08)
[2021-10-11] MEDS: Ramipril 10 MG Capsule PO (06:08)
[2021-10-11] MEDS: Omega-3 Acid Ethyl Esters 1 GM Capsule PO (06:08)
[2021-10-11] MEDS: hydroCHLOROthiazide 25 MG Tablet PO (06:08)
[2021-10-11] MEDS: Folic Acid 1 MG Tablet PO (06:09)
[2021-10-11] MEDS: Acetaminophen 500 MG Tablet 1000 MG PO ×3 (06:12→22:13)
[2021-10-11 06:39] VITALS: O2SAT 94
[2021-10-11] MEDS: Iron Polysaccharide Complex 150 MG CAPSULE PO ×2 (08:27→16:31)
[2021-10-11] MEDS: Aspirin 81 MG TAB.CHEW PO (08:27)
[2021-10-11] MEDS: Multivitamins,Therapeutic Tablet 1 TABLET PO (08:28)
[2021-10-11 08:29] VITALS: BP 100/51; PULSE 60
[2021-10-11 13:39] VITALS: BP 119/57; PULSE 58; RESP 16; TEMP 36.6; O2SAT 98
--- NOTE | 2021-10-11 14:33 | MDS.RN ---
Pain assessment and preferences for customary routine and activities assessments for the mds completed on this day for MARIA GUADALUPE 10/12/21
[2021-10-11] MEDS: Atorvastatin Calcium 40 MG Tablet PO (22:13)
[2021-10-11] MEDS: MELATONIN 10 MG TABLET PO (22:13)
[2021-10-12] MEDS: hydroCHLOROthiazide 25 MG Tablet PO (07:09)
[2021-10-12] MEDS: Omega-3 Acid Ethyl Esters 1 GM Capsule PO (07:09)
[2021-10-12] MEDS: Folic Acid 1 MG Tablet PO (07:09)
[2021-10-12] MEDS: Pantoprazole Sodium 40 MG Tablet PO (07:09)
[2021-10-12] MEDS: Ramipril 10 MG Capsule PO (07:09)
[2021-10-12] MEDS: Pentoxifylline 400 MG Tablet PO ×2 (07:09→16:52)
[2021-10-12 07:11] VITALS: BP 108/55; PULSE 79
[2021-10-12] MEDS: Metoprolol Tartrate 100 MG Tablet PO (07:11)
[2021-10-12] MEDS: amLODIPine 10 MG Tablet PO (08:00)
[2021-10-12] MEDS: Multivitamins,Therapeutic Tablet 1 TABLET PO (08:00)
[2021-10-12] MEDS: Iron Polysaccharide Complex 150 MG CAPSULE PO ×2 (08:00→16:52)
[2021-10-12] MEDS: Aspirin 81 MG TAB.CHEW PO (08:00)
[2021-10-12 10:47] VITALS: PULSE 50; RESP 18; O2SAT 98
[2021-10-12 16:00] VITALS: BP 102/64; PULSE 61; RESP 12; TEMP 36.8; O2SAT 96
[2021-10-12] MEDS: Acetaminophen 500 MG Tablet 1000 MG PO (20:26)
[2021-10-12] MEDS: MELATONIN 10 MG TABLET PO (20:26)
[2021-10-12] MEDS: Atorvastatin Calcium 40 MG Tablet PO (20:26)
[2021-10-13] MEDS: traMADol 50 MG Tablet PO (01:48)
[2021-10-13 06:07] LABS: Absolute Lymphocyte Count 0.63 X10^3/uL (0.83-4.51); Absolute Neutrophil Count 14.6 X10^3/uL (2.0-7.7); Basophil# 0.01 X10^3/uL; Basophil% 0.1 % (0-1); Hematocrit 32.1 % (40-54); Hemoglobin 10.5 g/dL (13.0-16.5); Lymphocyte # 0.63 X10^3/ul (0.83-4.51); Mean Corp Hgb Conc 32.7 g/dL (32-36); Mean Corpuscular Hgb 30.3 pg (27.0-32.0); Mean Corpuscular Volume 92.5 fL (80-94); Mean Platelet Vol. 10.3 fl (6.2-12.0); Monocyte# 0.51 X10^3/uL; Monocyte% 3.2 % (0-10); NRBC Flagged by Analyzer 0 % (0-5); Neutrophil # 14.57 X10^3/uL (2.7-7.7); Platelet Count 347 K/mm3 (150-450); RBC Distribution Width SD 54.3 fl (35.1-43.9); Red Blood Count 3.47 M/mm3 (4.6-6.2); White Blood Count 15.8 K/mm3 (4.4-11.0)
[2021-10-13 06:41] VITALS: PULSE 78
[2021-10-13] MEDS: Omega-3 Acid Ethyl Esters 1 GM Capsule PO (06:41)
[2021-10-13] MEDS: Ramipril 10 MG Capsule PO (06:41)
[2021-10-13] MEDS: hydroCHLOROthiazide 25 MG Tablet PO (06:41)
[2021-10-13] MEDS: Metoprolol Tartrate 100 MG Tablet PO (06:41)
[2021-10-13] MEDS: Pentoxifylline 400 MG Tablet PO (06:41)
[2021-10-13] MEDS: Folic Acid 1 MG Tablet PO (06:41)
[2021-10-13] MEDS: Pantoprazole Sodium 40 MG Tablet PO (06:41)
[2021-10-13] MEDS: Acetaminophen 500 MG Tablet 1000 MG PO (06:48)
[2021-10-13 06:52] VITALS: O2SAT 94
[2021-10-13 06:55] LABS: Anion Gap 10 (5-15); BUN 27 mg/dL (7-18); BUN/Creat Ratio 33.6 RATIO (10-20); Chloride 103 mmol/L (98-107); EST Glomerular Filtration Rate 97 mL/min (>60); Est Glom Filt Rate - Afr Amer 118 mL/min (>60); Estimated Creatinine Clearance 63.12 ml/min; Glucose 167 mg/dL (74-106); Potassium 2.7 mmol/L (3.5-5.1); Sodium Level 137 mmol/L (136-145)
--- NOTE | 2021-10-13 07:15 | NURSING ---
Pt sent to Emergency room per order from Dr. Damon this morning d/t increased abdominal pain and elevated WBC. Family was updated by previous shift.
--- NOTE | 2021-10-14 10:42 | PCM.DC.SUM ---
Providers Date of Admission: 10/05/21 Primary Care Physician: David Rios MD Consultations 10/05/21 19:00 Consult: General Surgery Routine Consulting Provider: Alvin Pearson Reason for Consult: Small bowel obstruction s/p exp lap. EMERGENT Consult: No MD Notified: Yes Date Notified: 10/05/21 Time Notified: 19:01 Method of Notification: Verbal Method of Consult:: In-Person Reason For Visit: SBO Diagnosis Discharge Diagnosis (1) Small bowel obstruction: Status: Acute Code(s): K56.609 - Unspecified intestinal obstruction, unspecified as to partial versus complete obstruction Medications at Discharge Home Medications amlodipine 10 mg PO DAILY 06/23/13 pentoxifylline 400 mg PO BID 06/23/13 rosuvastatin 20 mg PO QHS 06/23/13 metoprolol tartrate 100 mg-hydrochlorothiazide 25 mg tablet 1 tab PO DAILY 02/24/20 multivitamin 1 tab PO DAILY 02/24/20 omega-3 fatty acids-fish oil 360 mg-1,200 mg capsule 1 cap PO DAILY 02/24/20 ramipril 10 mg capsule 10 mg PO DAILY cap 02/24/20 furosemide 20 mg tablet 20 mg PO DAILY PRN PRN tab 07/19/21 famotidine 20 mg PO DAILY 09/08/21 ferrous sulfate [FeroSul] 325 mg PO BID 09/08/21 folic acid 1 mg PO DAILY 09/08/21 sennosides [Senokot] 8.6 mg PO BID PRN 09/08/21 tramadol 50 mg PO Q6H PRN PRN 09/08/21 Eliquis 2.5 mg PO BID 10 Days #20 tab 09/25/21 acetaminophen 1,000 mg PO Q8 09/28/21 aspirin 325 mg PO DAILY 09/28/21 pantoprazole 40 mg PO DAILY 09/28/21 polysaccharide iron complex [Ferrex 150] 150 mg PO BIDCM 09/28/21 Hospital Course Operations None Procedures None Summary of Care Provided Minutes Spent on Discharge: 30 Hospital Course: 86 year old male with below past medical history hospitalized for small bowel obstruction, underwent exploratory laparotomy with takedown of adhesions, release of small bowel obstruction 10/01/[address] Pearson, admitted to TCU with debility, here for rehabilitation, strengthening, prior to discharge home with . 10/13/2021 Resident complained of abdominal pain, diarrhea, WBC 15.8, recent small bowel obstruction with surgical correction. C. diff negative, Enteric panel negative, concern with recurrent underlying abdominal process. Due to insurance stipulations, CT scan abdomen/pelvis requires precertification, and would not be done for 2 days. Discharge to [facility] evaluation, urgent CT abdomen/pelvis, possible admission to hospital. Physical Exam Narrative No physical exam, resident not seen. Weight / BMI Weight Weight: 74.389 kg Body Mass Index (BMI) 27.7 ABG / Lab / Microbiology Data Result Diagrams: 10/13/21 05:41 10/13/21 05:41 Microbiology: Microbiology 10/11/21 17:15 Stool Enteric Bacteriology - Final 10/11/21 17:15 Stool C. difficile DNA Amplification - Final 10/11/21 12:13 Nasal Secretion SARS-CoV-2 Antigen (Rapid) - Final D/C Instructions Discharge Diet: - (NPO.) Discharge Activity: Use Walker Weight Bearing Status: Weight bearing as tolerated Call your doctor if you observe: Fever of 101 or Higher, Inability to urinate, Inability to have a bowel movement, Shortness of breath, Dizziness, Fainting spells, Swelling in the ankles, Chest pain and Uncontrolled pain Additional Instructions: Discharge to [facility] evaluation, urgent CT abdomen/pelvis, possible admission to hospital. Meaningful Use Info Meaningful Use Diagnoses (Choose all that apply): None applicable Discharge Plan Admission Admit Date/Time: 10/05/21 15:40 Primary Reason for Your Visit: Debility. Attending Provider: Pipe Damon Chi Primary Care Provider: David Rios Consulting Providers: Alvin Pearson Instructions Additional Instructions / Restrictions: Discharge to [facility] evaluation, urgent CT abdomen/pelvis, possible admission to hospital. Discharge Orders/Prescriptions Prescriptions: No Action metoprolol ta-hydrochlorothiaz 100-25 mg tablet 1 tab PO DAILY RF: 0 omega-3 fatty acids-fish oil [Fish Oil] 360-1,200 mg capsule 1 cap PO DAILY RF: 0 multivitamin Tablet 1 tab PO DAILY RF: 0 furosemide [Lasix] 20 mg tablet 20 mg PO DAILY PRN PRN (Reason: Swelling) RF: 0 pentoxifylline 400 MG tablet 400 mg PO BID RF: 0 amlodipine 10 MG tablet 10 mg PO DAILY RF: 0 rosuvastatin 20 MG tablet 20 mg PO QHS RF: 0 ramipril 10 mg capsule 10 mg PO DAILY RF: 0 tramadol 50 mg tablet 50 mg PO Q6H PRN PRN (Reason: Pain) RF: 0 famotidine 20 mg tablet 20 mg PO DAILY RF: 0 sennosides [Senokot] 8.6 mg Tablet 8.6 mg PO BID PRN (Reason: Constipation) RF: 0 ferrous sulfate [FeroSul] 325 mg (65 mg iron) tablet 325 mg PO BID RF: 0 folic acid 1 mg tablet 1 mg PO DAILY RF: 0 Eliquis 2.5 mg tablet 2.5 mg PO BID 10 Days Qty: 20 RF: 0 aspirin 325 mg tablet 325 mg PO DAILY RF: 0 polysaccharide iron complex [Ferrex 150] 150 mg iron capsule 150 mg PO BIDCM RF: 0 acetaminophen 500 mg tablet 1,000 mg PO Q8 RF: 0 pantoprazole 40 mg tablet,delayed release (DR/EC) 40 mg PO DAILY RF: 0 Disposition Disposition (needs filled in before D/C Order can be placed): Acute Care Hospital
--- NOTE | 2021-10-17 12:02 | MDS.RN ---
Information for the mds was obtained from review of the clinical record, interview of resident, staff, and direct observation of resident's care.
== END 2021-10-14 00:16 | disposition short-term general hospital (02) | DRG 949 ==
LOC: TCU 15:40
PROVIDERS: Admitting Provider Family Medicine Geriatric Medicine; PCP Family Medicine; Visit Provider Family Medicine Geriatric Medicine
DX: Z48.815 Encounter for surgical aftercare following surgery on the digestive system (principal); K56.609 Unspecified intestinal obstruction, unspecified as to partial versus complete obstruction; I48.91 Unspecified atrial fibrillation; I73.9 Peripheral vascular disease, unspecified; D50.9 Iron deficiency anemia, unspecified; I25.10 Atherosclerotic heart disease of native coronary artery without angina pectoris; I10 Essential (primary) hypertension; K21.9 Gastro-esophageal reflux disease without esophagitis; E78.5 Hyperlipidemia, unspecified; E53.8 Deficiency of other specified B group vitamins; M19.90 Unspecified osteoarthritis, unspecified site; I25.2 Old myocardial infarction; Z87.891 Personal history of nicotine dependence; Z96.643 Presence of artificial hip joint, bilateral; Z79.01 Long term (current) use of anticoagulants; Z79.82 Long term (current) use of aspirin; Z79.899 Other long term (current) drug therapy
CPT/HCPCS: 36415; 80048; 85025; 87426; 87493; 87506; 92507; 92523; 92526; 92610; 97110; 97116; 97162; 97166; 97530; 97535; 97802; A4216

== ENCOUNTER 2021-10-13 07:12 | Inpatient (IN) | payer MEDICARE, SELFPAY ==
[2021-10-13] VITALS (11 sets, daily range): BP systolic 117–140; BP diastolic 59–81; PULSE 55–101; RESP 18–22; TEMP 36.5–37.2; O2SAT 93–98; BMI 25.2; BMI 25.0
--- NOTE | 2021-10-13 07:39 | CT_ITS ---
STUDY: CT ABDOMEN AND PELVIS WITH CONTRAST REASON FOR EXAM: Male, 86 years old. Abd pain RADIATION DOSAGE (If Supplied By Facility): CTDIvol = ( 17.86 ) mGy, DLP = ( 979.61 ) mGycm TECHNIQUE: Transaxial images were obtained from the dome of the diaphragm to the symphysis pubis without oral contrast. IV 100mL Isovue-300 was administered. Sagittal and coronal images were reconstructed. Individualized dose optimization techniques were used for this CT. COMPARISON: None. FINDINGS: The visualized lung bases are unremarkable. The visualized portions of the heart are within normal limits. Normal liver. Normal gallbladder and extrahepatic biliary system. Normal spleen. Normal pancreas. Normal bilateral adrenal glands. 3.5 cm cyst in the upper pole the right kidney. Multiple nonobstructing stones the left kidney. No hydronephrosis, ureteral stone or ureteral dilatation. Normal visualized stomach. Multiple loops of mildly dilated air-filled small bowel and transverse colon likely consistent with an adynamic ileus. No definite transition point to suggest obstruction. Normal colon. There is non-visualization of the appendix. There is diffuse atherosclerotic calcification of the abdominal aorta, without a demonstrated aneurysm. Normal inferior vena cava. Normal retroperitoneum. Normal urinary bladder. Normal abdominal wall. There are diffuse degenerative changes of the visualized lumbar spine. Bilateral hip arthroplasty which produces streak artifact and obscures the pelvis. CT/Abdomen/Pelvis W IV Cont ONLY IMPRESSION: Suspect adynamic ileus. Electronically Signed: Harvey Easley MD at 9:10 EST ,
--- NOTE | 2021-10-13 07:41 | ED.VIS.GI ---
HPI HPI - GI History of Present Illness Chief Complaint: Abd Pain Informant: patient Abdominal Pain/Flank Pain Onset: Yesterday Context: Gradual Onset Timing: Continuous Quality: Aching Location: Diffuse Current Severity: Mild Maximum Severity: Moderate Nausea/Vomiting/Emesis GI Symptom: Negative for Nausea and Vomiting Diarrhea/Melena/Hematochezia GI Symptom: Positive for Diarrhea Onset: Yesterday Stool Quality: Positive for Loose Severity: Mild Associated Symptoms Associated Symptoms: Negative for Dysuria, Frequency, Hematuria and Urgency Narrative Narrative: 86-year-old male significant past medical history of CAD, BPH, A. fib on Eliquis and aspirin and peripheral arterial disease. Recently hospitalized for small bowel obstruction and I think he needed surgery to relieve that and adhesions. Patient is currently in a transitional care unit and last night started having recurrent abdominal pain with an elevated white count so he was sent down the emergency department for further evaluation. He denies nausea or vomiting. He did have a loose bowel movement yesterday. He denies any dysuria but states has been urinating less but also drinking less fluids. He denies any fever. Prior similar symptoms: Yes Recent Illness/Hospitalization: Yes PFSH PFSH Medical History Arthritis Atherosclerosis of coronary artery of [place] heart without angina pectoris Chronic atrial flutter Depression Essential hypertension Hearing loss, left Hearing loss, right History of [place] (myocardial infarction) (1983) Hyperlipidemia Left ventricular hypertrophy New onset atrial flutter (02/08/20) Obesity Osteoarthritis Osteoporosis Periprosthetic fracture around internal prosthetic left hip joint Venous insufficiency of both lower extremities Home Medications amlodipine 10 mg PO DAILY 06/23/13 [History Last Taken 10/05/21 10:00] pentoxifylline 400 mg PO BID 06/23/13 [History Last Taken 10/05/21 10:00] rosuvastatin 20 mg PO QHS 06/23/13 [History Last Taken 10/04/21 22:00] metoprolol tartrate 100 mg-hydrochlorothiazide 25 mg tablet 1 tab PO DAILY 02/24/20 [History Last Taken 08/13/21] multivitamin 1 tab PO DAILY 02/24/20 [History Last Taken Unknown] omega-3 fatty acids-fish oil 360 mg-1,200 mg capsule 1 cap PO DAILY 02/24/20 [History Last Taken Unknown] ramipril 10 mg capsule 10 mg PO DAILY cap 02/24/20 [History Last Taken 10/05/21 10:00] furosemide 20 mg tablet 20 mg PO DAILY PRN PRN tab 07/19/21 [History Last Taken Unknown] famotidine 20 mg PO DAILY 09/08/21 [History Last Taken Unknown] ferrous sulfate [FeroSul] 325 mg PO BID 09/08/21 [History Last Taken Unknown] folic acid 1 mg PO DAILY 09/08/21 [History Last Taken Unknown] sennosides [Senokot] 8.6 mg PO BID PRN 09/08/21 [History Last Taken 10/04/21 09:00] tramadol 50 mg PO Q6H PRN PRN 09/08/21 [History Last Taken Unknown] Eliquis 2.5 mg PO BID 10 Days #20 tab 09/25/21 [Rx Last Taken 10/05/21 10:00] acetaminophen 1,000 mg PO Q8 09/28/21 [History Last Taken 10/05/21 10:00] aspirin 325 mg PO DAILY 09/28/21 [History Last Taken Unknown] pantoprazole 40 mg PO DAILY 09/28/21 [History Last Taken 10/05/21 10:00] polysaccharide iron complex [Ferrex 150] 150 mg PO BIDCM 09/28/21 [History Last Taken Unknown] Allergy/AdvReac Type Severity Reaction Status Date / Time No Known Drug Allergies Allergy NONE Verified 10/13/21 07:24 Family History Mother CAD (coronary artery disease) Sister Cancer lung Surgical History H/O coronary artery bypass surgery (1983) History of appendectomy History of carpal tunnel release History of exploratory laparotomy History of left heart catheterization (08/13/21) History of right hip replacement History of surgical removal of skin lesion History of total bilateral knee replacement History of total left hip replacement Social History household members: spouse Smoking Status: Former smoker alcohol intake: never substance use type: does not use ROS ROS ED ROS Narrative Abdominal pain Review of Systems ROS Unobtainable: Denies due to encephalopathy Constitutional Constitutional ED: Denies fever(s) or subjective ENT ENT ED: Denies ear pain or sore throat Cardiovascular Cardiovascular: Denies chest pain or palpitations Respiratory/Chest Respiratory/Chest: Denies cough, dyspnea or sputum Gastrointestinal Gastrointestinal: Reports abdominal pain and diarrhea; Denies constipation, melena, nausea or vomiting Genitourinary Genitourinary ED: Denies dysuria or hematuria Musculoskeletal Musculoskeletal: Denies myalgias Integumentary Denies rash Neurologic Neurologic: Denies headache(s) Psychiatric Psychiatric: Denies depression Endocrine Endocrinology: Denies polyuria Hematologic/Lymphatic Hematologic/Lymphatic: Denies easy bruising Allergic/Immunologic Allergic/Immunologic ED: Denies urticaria EXAM Physical Exam Narrative Exam Narrative: 86-year-old male vital signs stable afebrile does not look septic toxic. No acute distress. HEENT exam unremarkable. Moist mucous memories. Neck nontender. No JVD. Lungs clear to auscultation bilaterally. Heart regular rhythm rate about 100 no murmur. Abdomen distended. Diffusely tender. Positive bowel sounds. Prior surgery well-healed. Moving all 4 extremities. Nontender no edema. Neurologically is awake and alert. Answering questions and no focal motor deficits. Const Vital Signs: 10/13/21 07:13 10/13/21 07:22 10/13/21 08:00 Temperature 98.6 F 98.6 F Temperature Source Temporal Temporal Pulse Rate 101 H 99 82 Respiratory Rate 22 H 22 H 19 H Blood Pressure 118/68 118/68 140/65 H Blood Pressure Mean 84 84 90 Pulse Ox 98 95 97 Oxygen Delivery Method Room Air Room Air Room Air Positive well nourished and well developed; Negative for obese, cachectic, contractures or unkempt General Appearance ED: well developed and NAD; Negative for unkempt, cachectic, contractures or pallor Nutritional Appearance: Negative for cachectic or obese HEENT Reports moist mucous membranes normocephalic and atraumatic; Negative for trauma or tenderness Eyes PERRL and EOMs intact bilaterally Neck no lymphadenopathy, supple and no JVD General: Negative for tenderness Resp normal respiratory effort and clear to auscultation bilaterally Auscultation: Negative for rales, rhonchi or wheezes Cardio regular rate, regular rhythm, S1 normal heart sound, S2 normal heart sound and no murmurs GI no masses; Negative for non-tender or non-distended Inspection: abdominal distention Auscultation: hypoactive bowel sounds; Negative for normoactive bowel sounds Palpation: soft and tender; Negative for guarding or rigid Back/Spine no CVA tenderness Extremity full ROM General Extremety ED: Negative for edema or tenderness General Extremity: Negative for edema Neuro moves all extremities Sensorium / Orientation: alert, oriented to person, oriented to place and oriented to time; Negative for orientation impaired, confused, lethargic or stuporous Motor Exam: strength 5/5 throughout Psych mental status grossly normal and thought process normal Appearance: Negative for unkempt Mood & Affect: Negative for depressed or tearful Skin no wounds General Skin Exam: Negative for jaundice or pallor Lesions: no lesions Rashes: no rashes MDM MDM MDM Narrative Medical decision making narrative: 86-year-old male status post recent surgery for bowel obstruction. History of A. fib on Eliquis. With abdominal pain and distention. CAT scan and labs are pending. He will also have a bladder scan due to decreased urination and history of BPH. Be treated with IV fluids, morphine and Zofran. Repeat exam at 10 AM patient is doing much better. Pain is improved after the morphine. CAT scan shows an adynamic ileus. I spoke to general surgery on-call and they requested an NG be placed. We do not have a specific source for his white count. Were holding off on antibiotics at this time. Have also spoken to the hospitalist about admission. Lab Data Attestation: I reviewed the patient's lab results. Lab results narrative: CBC shows a white count of 19.2. H&H of 12 and 37. Platelets of 411. Reviewing recent labs his white count is gone from 9-15,000 and now 19,000. Bladder scan showed only 65 cc per nursing. Electrolytes show potassium of 2.9 gap of 10 BUN of 26 creatinine of 1 consistent with mild dehydration. Glucose 154 liver enzymes unremarkable alk phos of 223. Lipase at 46. Urinalysis negative. Labs: Laboratory Results - last 24 hr 10/13/21 10/13/21 10/13/21 07:35 07:35 09:02 WBC 19.2 H RBC 3.97 L Hgb 12.0 L Hct 37.8 L MCV 95.2 H MCH 30.2 MCHC 31.7 L RDW Std Deviation 57.4 H RDW Coeff of Denise 16.2 H Plt Count 411 MPV 9.9 Immature Gran % (Auto) 0.500 Neut % (Auto) 94.0 H Lymph % (Auto) 3.1 L [place] % (Auto) 2.2 Eos % (Auto) 0.0 Baso % (Auto) 0.2 Absolute Neuts (auto) 18.1 H Absolute Lymphs (auto) 0.60 L Nucleated RBC % 0 Platelet Estimate ADEQUATE RBC Morphology NORM C+C Sodium 137 Potassium 2.9 L Chloride 102 Carbon Dioxide 25.0 Anion Gap 10 BUN 26 H Creatinine 1.05 Estim Creat Clear Calc 48.09 Est GFR (MDRD) Af Amer 86 Est GFR (MDRD) Non-Af 71 BUN/Creatinine Ratio 24.8 H Glucose 154 H Calcium 8.3 L Total Bilirubin 0.50 AST 23 ALT 22 Alkaline Phosphatase 223 H Total Protein 8.1 Albumin 2.7 L Globulin 5.4 H Albumin/Globulin Ratio 0.5 L Lipase 46 L Urine Color Yellow Urine Clarity Clear Urine pH 5.0 Ur Specific [place] 1.015 Urine Protein 15 H Urine Glucose (UA) Normal Urine Ketones Negative Urine Occult Blood Negative Urine Nitrite Negative Urine Bilirubin Negative Urine Urobilinogen Normal Ur Leukocyte Esterase Negative Urine RBC 0 SEEN Urine WBC 0 SEEN Ur Squamous Epith Cells 0-5 SEEN Urine Bacteria 0 SEEN Hyaline Casts 0-5 SEEN Urine Mucus 0 SEEN Radiography Diagnostic Testing: Clinical Impression(s) from Imaging Studies Abdomen/Pelvis CT 10/13/21 07:39 IMPRESSION: Suspect adynamic ileus. Electronically Signed: Harvey Easley MD at 9:10 EST , CAT scan read and radiologist and reviewed by me. Chest x-ray, portable, single view interpreted myself shows chronic changes no acute process. No infiltrate. Discharge Plan Triage Chief Complaint: Abd Pain ED Provider: Rajendra Bonner Dx/Rx/DC Orders Clinical Impression: Adynamic ileus, History of small bowel obstruction, Acute hypokalemia, History of atrial fibrillation, Chronic anticoagulation Prescriptions: No Action metoprolol ta-hydrochlorothiaz 100-25 mg tablet 1 tab PO DAILY RF: 0 omega-3 fatty acids-fish oil [Fish Oil] 360-1,200 mg capsule 1 cap PO DAILY RF: 0 multivitamin Tablet 1 tab PO DAILY RF: 0 furosemide [Lasix] 20 mg tablet 20 mg PO DAILY PRN PRN (Reason: Swelling) RF: 0 pentoxifylline 400 MG tablet 400 mg PO BID RF: 0 amlodipine 10 MG tablet 10 mg PO DAILY RF: 0 rosuvastatin 20 MG tablet 20 mg PO QHS RF: 0 ramipril 10 mg capsule 10 mg PO DAILY RF: 0 tramadol 50 mg tablet 50 mg PO Q6H PRN PRN (Reason: Pain) RF: 0 famotidine 20 mg tablet 20 mg PO DAILY RF: 0 sennosides [Senokot] 8.6 mg Tablet 8.6 mg PO BID PRN (Reason: Constipation) RF: 0 ferrous sulfate [FeroSul] 325 mg (65 mg iron) tablet 325 mg PO BID RF: 0 folic acid 1 mg tablet 1 mg PO DAILY RF: 0 Eliquis 2.5 mg tablet 2.5 mg PO BID 10 Days Qty: 20 RF: 0 aspirin 325 mg tablet 325 mg PO DAILY RF: 0 polysaccharide iron complex [Ferrex 150] 150 mg iron capsule 150 mg PO BIDCM RF: 0 acetaminophen 500 mg tablet 1,000 mg PO Q8 RF: 0 pantoprazole 40 mg tablet,delayed release (DR/EC) 40 mg PO DAILY RF: 0 Primary Care Provider: David Rios Referrals: David Rios MD [Primary Care Provider] - Disposition Disposition: Acute Care [facility]
[2021-10-13 07:52] LABS: Absolute Neutrophil Count 18.1 X10^3/uL (2.0-7.7); Basophil# 0.03 X10^3/uL; Basophil% 0.2 % (0-1); Hematocrit 37.8 % (40-54); Lymphocyte % 3.1 % (19-41); Mean Corp Hgb Conc 31.7 g/dL (32-36); Mean Corpuscular Hgb 30.2 pg (27.0-32.0); Mean Corpuscular Volume 95.2 fL (80-94); Mean Platelet Vol. 9.9 fl (6.2-12.0); Monocyte# 0.42 X10^3/uL; Monocyte% 2.2 % (0-10); NRBC Flagged by Analyzer 0 % (0-5); Neutrophil # 18.09 X10^3/uL (2.7-7.7); POSITIVE DIFFERENTIAL YES; Platelet Count 411 K/mm3 (150-450); RBC Distribution Width CV 16.2 % (11.6-14.6); RBC Distribution Width SD 57.4 fl (35.1-43.9); Red Blood Count 3.97 M/mm3 (4.6-6.2); White Blood Count 19.2 K/mm3 (4.4-11.0)
[2021-10-13 07:53] LABS: Differential Indicated SCAN CRITERIA MET
[2021-10-13] MEDS: 0.9% Normal Saline 1,000 ML 1000 ML IV (08:04)
[2021-10-13] MEDS: Morphine 4 MG/ML Syringe IV (08:05)
[2021-10-13] MEDS: Ondansetron 4 MG/2 ML Vial IV (08:05)
[2021-10-13 08:09] LABS: ALB/GLOB Ratio 0.5 RATIO (0.9-2.4); AST(SGOT) 23 U/L (15-37); Alanine Aminotransfer ALT/SGPT 22 U/L (16-61); Albumin, Serum 2.7 g/dL (3.2-5.0); Alkaline Phosphatase 223 U/L (45-117); Anion Gap 10 (5-15); BUN 26 mg/dL (7-18); BUN/Creat Ratio 24.8 RATIO (10-20); Calcium,Total 8.3 mg/dL (8.5-10.1); Chloride 102 mmol/L (98-107); Creatinine, Serum 1.05 mg/dL (0.70-1.30); EST Glomerular Filtration Rate 71 mL/min (>60); Est Glom Filt Rate - Afr Amer 86 mL/min (>60); Estimated Creatinine Clearance 48.09 ml/min; Globulin 5.4 g/dL (2.2-4.2); Glucose 154 mg/dL (74-106); Lipase 46 U/L (73-393); Potassium 2.9 mmol/L (3.5-5.1); Protein, Total 8.1 g/dL (6.4-8.2); Sodium Level 137 mmol/L (136-145)
[2021-10-13 08:17] LABS: Platelet Estimate ADEQUATE (ADEQ); Red Cell Morphology NORM C+C NORMAL (NORM C&C)
[2021-10-13 09:05] LABS: Bacteria 0 SEEN /hpf (None Seen); Mucous, Urine 0 SEEN /hpf (<or=2+); Red Blood Cells-Urine 0 SEEN /hpf (0-5); White Blood Cells 0 SEEN /hpf (0-5)
[2021-10-13 09:15] LABS: Color, Urine Yellow (Yellow); Glucose, Dipstick Normal (Normal); Ketone-Dipstick Negative (Negative); Leukocyte Esterase-Dipstick Negative /ul (Negative); Nitrite-Dipstick Negative (Negative); Occult Blood-Urine Negative /ul (Negative); Protein-Dipstick 15 mg/dl (Negative); Specific Gravity, Urine 1.015 (1.002-1.030); Urine Bilirubin Dipstick Negative (Negative); Urine Clarity Clear (Clear); Urine Urobilinogen Normal (Normal)
[2021-10-13 09:28] LABS: Hyaline Cast 0-5 SEEN /lpf (0-5); Squamous Epithelial Cells - UA 0-5 SEEN /hpf (0-5)
--- NOTE | 2021-10-13 10:02 | RAD_ITS ---
STUDY: X-RAY CHEST REASON FOR EXAM: Male, 86 years old. leukocytosis TECHNIQUE: Single AP portable view of the chest. COMPARISON: 09/13/2021 FINDINGS: Status post median sternotomy. The lungs are clear and expanded. There is no demonstrated pleural abnormality. There is moderate cardiac enlargement. Normal mediastinum and gloria. Normal visualized pulmonary arteries. Normal visualized aortic arch and descending thoracic aorta. Normal visualized thoracic spine. There is degenerative osteoarthritis of the bilateral shoulders. There is no demonstrated abnormality of the visualized soft tissue structures of the upper abdomen. RAD/Chest 1 View (Portable) IMPRESSION: No active disease. Electronically Signed: Harvey Easley MD at 10:37 EST ,
--- NOTE | 2021-10-13 10:30 | HP.PCM.HOS_ITS ---
HPI - General General Date of Admission: 10/13/21 Date of Service: 10/13/21 Chief Complaint: Abdominal pain HPI Narrative CARIDAD WARD, is a 86 M who presented to the emergency department was [facility] on 10/13/2021 with chief complaint abdominal pain. Patient has had several admissions here starting on September 08, 2021 at which time he presented after a fall on his newly operated on left hip and was found to have a proximal intertrochanteric fracture. At that time he was discharged to TCU on 09/10/2021. He remained at TCU until 09/28/2021 at which time he developed nausea and vomiting with abdominal pain and lack of flatus. He was admitted at that time and found to have a small bowel obstruction which required an ex lap and lysis of adhesions performed on 10/01/2021. He was able to be discharged back to TCU on 10/05/2021 but unfortunately last evening he developed increasing abdominal pain and was found to have an elevated white count and therefore was sent back to the emergency department from the TCU. He currently is comfortable however he has been given morphine. He indicates he had some diarrhea but currently is not passing any flatus. He is somewhat of a poor historian and is difficult to ascertain specifically what his symptoms have been. He denies any nausea or vomiting at this time. He has had no fever or chills but p.o. intake has been poor. In the emergency department his vital signs were stable and he was afebrile. His oxygen saturation was 97% on room air. His CBC shows a leukocytosis at 19.2 hemoglobin of 12.0 and a platelet count of 411,000 all which are markedly higher than he was on his last assessment leading me to suspect he is somewhat hemoconcentrated at this time. His CMP shows hypokalemia with potassium of 2.9 mildly elevated BUN at 26 and serum creatinine of 1.05 both of which are elevated from where he was on his most recent lab at discharge 10/06/2021 which time he had a serum creatinine of 0.65. His LFTs are overall unremarkable other than a mildly elevated alk phos at 223 his lipase was 46. A UA was performed and was unremarkable. Given his abdominal pain a CT of his abdomen pelvis was performed and showed an adynamic ileus with multiple loops of mildly dilated air-filled small bowel and transverse colon. No definitive transition point was noted to suggest obstruction at this time. His chest x-ray was unremarkable. In the emergency department he was given morphine for pain and the case was discussed with Dr. Denney who requested an NG tube be placed but to hold off on any IV antibiotics unless a source was obtained. [facility] Medical History Arthritis Atherosclerosis of coronary artery of [place] heart without angina pectoris Chronic atrial flutter Depression Essential hypertension Hearing loss, left Hearing loss, right History of NV (myocardial infarction) (1983) Hyperlipidemia Left ventricular hypertrophy New onset atrial flutter (02/08/20) Obesity Osteoarthritis Osteoporosis Periprosthetic fracture around internal prosthetic left hip joint Venous insufficiency of both lower extremities Home Medications amlodipine 10 mg PO DAILY 06/23/13 [History Last Taken 10/05/21 10:00] pentoxifylline 400 mg PO BID 06/23/13 [History Last Taken 10/05/21 10:00] rosuvastatin 20 mg PO QHS 06/23/13 [History Last Taken 10/04/21 22:00] metoprolol tartrate 100 mg-hydrochlorothiazide 25 mg tablet 1 tab PO DAILY 02/24/20 [History Last Taken 08/13/21] multivitamin 1 tab PO DAILY 02/24/20 [History Last Taken Unknown] omega-3 fatty acids-fish oil 360 mg-1,200 mg capsule 1 cap PO DAILY 02/24/20 [History Last Taken Unknown] ramipril 10 mg capsule 10 mg PO DAILY cap 02/24/20 [History Last Taken 10/05/21 10:00] furosemide 20 mg tablet 20 mg PO DAILY PRN PRN tab 07/19/21 [History Last Taken Unknown] famotidine 20 mg PO DAILY 09/08/21 [History Last Taken Unknown] ferrous sulfate [FeroSul] 325 mg PO BID 09/08/21 [History Last Taken Unknown] folic acid 1 mg PO DAILY 09/08/21 [History Last Taken Unknown] sennosides [Senokot] 8.6 mg PO BID PRN 09/08/21 [History Last Taken 10/04/21 09:00] tramadol 50 mg PO Q6H PRN PRN 09/08/21 [History Last Taken Unknown] Eliquis 2.5 mg PO BID 10 Days #20 tab 09/25/21 [Rx Last Taken 10/05/21 10:00] acetaminophen 1,000 mg PO Q8 09/28/21 [History Last Taken 10/05/21 10:00] aspirin 325 mg PO DAILY 09/28/21 [History Last Taken Unknown] pantoprazole 40 mg PO DAILY 09/28/21 [History Last Taken 10/05/21 10:00] polysaccharide iron complex [Ferrex 150] 150 mg PO BIDCM 09/28/21 [History Last Taken Unknown] Allergy/AdvReac Type Severity Reaction Status Date / Time No Known Drug Allergies Allergy NONE Verified 10/13/21 07:24 Family History Mother CAD (coronary artery disease) Sister Cancer lung Surgical History H/O coronary artery bypass surgery (1983) History of appendectomy History of carpal tunnel release History of exploratory laparotomy History of left heart catheterization (08/13/21) History of right hip replacement History of surgical removal of skin lesion History of total bilateral knee replacement History of total left hip replacement Social History household members: spouse Smoking Status: Former smoker alcohol intake: never substance use type: does not use ROS Constitutional Constitutional: Reports anorexia; Denies change in weight, chills, fatigue, fever(s), malaise, night sweats, weakness or other Eyes Eyes: Denies blurry vision, change in eye color, change in vision, discharge from eye(s), double vision, erythema, eye pain, loss of vision or other ENT HEENT: Reports abnormal hearing and hearing loss; Denies dysphagia, ear pain, epistaxis, headache(s), nasal congestion, nasal discharge, post nasal drip, sinus pressure, sore throat or other Cardiovascular Cardiovascular: Denies chest pain, claudication, dyspnea on exertion, edema, lightheadedness, orthopnea, palpitations, paroxysmal nocturnal dyspnea, rapid heart rate, syncope or other Respiratory/Chest Respiratory/Chest: Denies cough, dyspnea, excessive phlegm production, hemoptysis, productive cough, shortness of breath at rest, shortness of breath with exertion, wheezing or other Gastrointestinal Gastrointestinal: Reports abdominal pain and diarrhea; Denies coffee ground emesis, constipation, dyspepsia, hematemesis, hematochezia, loose stools, melena, nausea, vomiting or other Genitourinary Genitourinary: Denies burning urination, difficulty urinating, dysuria, hematuria, nocturia, urinary frequency, urinary hesitancy, urinary incontinence, urinary urgency or other Musculoskeletal Musculoskeletal: Reports back pain; Denies arthralgias, joint pain, joint stiffness, joint swelling, myalgias, neck pain or other Neurologic Neurologic: Denies abnormal gait, abnormal speech, confusion, disequilibrium, dizziness, focal weakness, headache(s), numbness, paresthesias, seizure-like activity, seizures, syncope, tingling, tremor(s) or other Psychiatric Psychiatric: Denies anxiety, depression, homicidal ideation, suicidal ideation or other Endocrine Endocrinology: Denies change in body appearance, cold intolerance, excessive sweating, heat intolerance, polydipsia, polyuria or other Hematologic/Lymphatic Hematologic/Lymphatic: Denies anemia, easy bleeding, easy bruising, lymphadenopathy or other Allergic/Immunologic Allergic/Immunologic: Denies rhinitis, hives, eczemia, asthma or other Vital Signs Vital Signs Vital Signs: 10/13/21 07:13 10/13/21 07:22 10/13/21 08:00 Temperature 98.6 F 98.6 F Temperature Source Temporal Temporal Pulse Rate 101 H 99 82 Respiratory Rate 22 H 22 H 19 H Blood Pressure 118/68 118/68 140/65 H Blood Pressure Mean 84 84 90 Pulse Ox 98 95 97 Oxygen Delivery Method Room Air Room Air Room Air Weight Weight: 73.028 kg Body Mass Index (BMI) 25.2 Physical Exam Const alert, no apparent distress and average body habitus Constitutional Narrative: Patient is an elderly white male lying in bed, currently appears comfortable, nontoxic, patient is oriented to self place month and year and this is his baseline however he does have some intermittent confusion General Appearance: cooperative HEENT normocephalic and head/scalp atraumatic; Negative for hearing grossly normal bilaterally HEENT Narrative: Hard of hearing, edentulous, Mallampati 2, mucous membranes are dry Eyes PERRL, EOMs intact bilaterally and conjunctivae normal Eyes Narrative: No scleral icterus Neck no lymphadenopathy, supple, no JVD and no carotid bruits Neck Narrative: Trachea midline, no thyroid enlargement Resp normal respiratory effort, no retractions, no use of accessory muscles and clear to auscultation bilaterally Resp Narrative: Diminished but clear Auscultation: Negative for crackles, rales, rhonchi or wheezes Cardio regular rate, regular rhythm, S1 normal heart sound, S2 normal heart sound, no murmurs, no rub, no gallops, no clicks and no JVD GI GI Narrative: Abdomen is distended with hypoactive bowel sounds and diffuse mild tenderness at this time however the patient has recently received morphine for pain, postoperative incisions are well-healed without any signs of infection Extremity Extremity Narrative: Trace bilateral lower extremity edema, no cyanosis or clubbing, pedal pulses are 1+ bilateral Skin no rashes or lesions noted, skin turgor normal, no jaundice, no petechiae and no mottling Skin Narrative: Well-healing incision left hip, bilateral lower extremity skin changes consistent with venous stasis that is chronic Neuro CN's II-XII intact bilaterally, moves all extremities and no focal motor deficits Neuro Narrative: Generalized weakness Sensorium / Orientation: awake, alert, oriented to person, oriented to place and oriented to time Speech: speech normal Psych affect normal Psych Narrative: Very pleasant Results Lab / Micro Data Attestation: I reviewed the patient's lab results. Result Diagrams: 10/13/21 07:35 10/13/21 07:35 Labs: Laboratory Results - last 24 hr 10/13/21 07:35: WBC 19.2 H, RBC 3.97 L, Hgb 12.0 L, Hct 37.8 L, MCV 95.2 H, MCH 30.2, MCHC 31.7 L, RDW Std Deviation 57.4 H, RDW Coeff of Denise 16.2 H, Plt Count 411, MPV 9.9, Immature Gran % (Auto) 0.500, Neut % (Auto) 94.0 H, Lymph % (Auto) 3.1 L, [place] % (Auto) 2.2, Eos % (Auto) 0.0, Baso % (Auto) 0.2, Absolute Neuts (auto) 18.1 H, Absolute Lymphs (auto) 0.60 L, Nucleated RBC % 0, Platelet Estimate ADEQUATE, RBC Morphology NORM C+C 10/13/21 07:35: Sodium 137, Potassium 2.9 L, Chloride 102, Carbon Dioxide 25.0, Anion Gap 10, BUN 26 H, Creatinine 1.05, Estim Creat Clear Calc 48.09, Est GFR (MDRD) Af Amer 86, Est GFR (MDRD) Non-Af 71, BUN/Creatinine Ratio 24.8 H, Glucose 154 H, Calcium 8.3 L, Total Bilirubin 0.50, AST 23, ALT 22, Alkaline Phosphatase 223 H, Total Protein 8.1, Albumin 2.7 L, Globulin 5.4 H, Albumin/Globulin Ratio 0.5 L, Lipase 46 L 10/13/21 09:02: Urine Color Yellow, Urine Clarity Clear, Urine pH 5.0, Ur Specific [place] 1.015, Urine Protein 15 H, Urine Glucose (UA) Normal, Urine Ketones Negative, Urine Occult Blood Negative, Urine Nitrite Negative, Urine Bilirubin Negative, Urine Urobilinogen Normal, Ur Leukocyte Esterase Negative, Urine RBC 0 SEEN, Urine WBC 0 SEEN, Ur Squamous Epith Cells 0-5 SEEN, Urine Bacteria 0 SEEN, Hyaline Casts 0-5 SEEN, Urine Mucus 0 SEEN Radiology Impression Abdomen/Pelvis CT 10/13/21 07:39 IMPRESSION: Suspect adynamic ileus. Electronically Signed: Harvey Easley MD at 9:10 EST , Assessment & Plan Assessment/Plan (1) Adynamic ileus: (2) History of small bowel obstruction: (3) Acute hypokalemia: (4) Leukocytosis: PLAN: Adynamic ileus -New finding on CT -NG tube to be placed as stomach appears distended on CT -N.p.o. -IV fluids with LR at 100 cc/h -Morphine for pain -Dr. Denney was consulted and case was discussed with her by the emergency department Acute hypokalemia -Potassium levels 2.9 -40 mEq was ordered in the emergency department -Repeat BMP in the a.m. and if remains low we will replace magnesium as well as we currently are not able to obtain magnesium levels with short turnaround Leukocytosis -No current signs of infection -Also appears hemoconcentrated -UA unremarkable and no abscess on CT -Patient without fever -Check procalcitonin -We will hold on empiric antibiotics at this time Recent Distal small bowel obstruction -Ex lap with HAYDEN performed 10/01/2021 -now with adynamic Chronic periprosthetic fracture of left proximal femur status post total hip replacement 09/09/2021 -Continue PT/OT -Surgical site appears benign -Probable discharge back to the TCU when ileus has resolved PAF -Oral anticoagulation with Eliquis while n.p.o. -Currently in normal sinus rhythm -Hold oral metoprolol and start IV at 5 mg every 6 hours CKD stage IIIa -Current serum creatinine is 0.7 -Monitor CAD status post CABG/hypertension/hyperlipidemia/PAD -Hold Home oral medications given ileus -IV metoprolol has been ordered -As needed hydralazine for systolic pressure greater than 160 is available -Restart home medications once obstruction has resolved GERD -Continue IV PPI -Restart oral once able Macrocytic anemia -Hemoglobin at baseline appears to be between 8 and 10 -Current hemoglobin is 12.0 however I do suspect upon reviewing his labs he is somewhat hemoconcentrated at this time -Suspect slight drop after surgery -Is on oral iron at baseline--> currently on hold with bowel obstruction At risk for malnutrition -P.o. intake has been poor as he has a small bowel obstruction -Ice chips initiated today and if patient continues to improve expect p.o. diet to be started slowly -No TPN required at this time DVT prophylaxis -Prophylactic subcu heparin for now CODE STATUS -DNR CCA with no intubation as per discussion upon admission emergency department Charges/Coding Visit Charges Inpatient E&M: 57772 Init Hosp L3
[2021-10-13] MEDS: Potassium Chloride 10mEq/100mL 10 MEQ/100 ML IV.SOLN. 100 MEQ IV BOLUS ×6 (10:46→19:54)
--- NOTE | 2021-10-13 11:09 | RAD_ITS ---
STUDY: X-RAY - ABDOMEN/PELVIS REASON FOR EXAM: Male, 86 years old. NG PLACEMENT TECHNIQUE: Single AP view of the abdomen / pelvis. COMPARISON: 10/01/2021 FINDINGS: Nasogastric tube: Left upper quadrant likely in the fundus of the stomach. Multiple loops of moderately dilated small bowel worrisome for small bowel obstruction. The visualized liver, spleen and kidneys are grossly normal in size and morphology. Normal soft tissue structures. Normal visualized osseous structures. RAD/Abdomen Single View IMPRESSION: Nasogastric tube coiled in the left upper quadrant likely in the fundus the stomach. Moderate small bowel obstruction. Electronically Signed: Harvey Easley MD at 11:29 EST ,
[2021-10-13 12:46] LABS: Procalcitonin 0.34 ng/mL (0.00-0.09)
[2021-10-13] MEDS: Lactated Ringers 1,000 ML 100 ML IV ×2 (13:24→22:05)
[2021-10-13] MEDS: 0.9% Saline Lock 10 ML Syringe IV ×2 (13:26→17:40)
--- NOTE | 2021-10-13 14:00 | CASEMGMT ---
Readmission chart review: 09/08-09/10/21 Hip fracture-discharged to TCU 09/28- SBO-discharged back to TCU 10/13/21-current Ileus Pt was initially admitted for intertrochanteric fracture and discharged to TCU s/p repair on 09/10/21. Pt returned to [facility] ED from TCU for vomiting since meal the night before. Pt admitted for SBO. SBO did not resolve with NG so pt was taken to OR by Dr. Pearson for exploratory lap with takedown adhesions and release of SBO. Pt had been planning to discharge from TCU prior to SBO as his insurance was cutting him and he was to be set up with [facility]. Pt preferred to return to TCU on discharge s/p SBO and his insurance did approve for him to return on 10/05/21. Pt then returned to [facility] ED on 10/13/21 from TCU for abd pain and increased WBC's. Per CT abd/pel, pt with suspected adynamic ileus and NG placed again at this time. Surgical c/s made. CM to follow for any further discharge planning/needs. Marciano SPANGLER CM
--- NOTE | 2021-10-13 15:01 | HP.PCM.SX_ITS ---
HPI - General General Date of Admission: 10/13/21 Chief Complaint: Abdominal pain HPI Narrative CARIDAD WARD, is a 86 M who presented to the ER due to abdominal pain from TCU. Patient did recently have surgery with Dr. Pearson on 10/01 for a bowel obstruction with lysis of adhesion. Patient states he had some abdominal pain last night and this morning which the TCU nurses also collaborated. TCU nurses also said he had diarrhea starting on Friday and he did have an extra large amount recently and did have some this morning as well. Patient denies diarrhea if asked but does state that if he goes to the toilet he does have some flatus he is passing some gas but also burping--patient is not the best historian. Patient CT abdomen pelvis in the ER which showed an adynamic ileus with some distention of small bowel as well as to the transverse colon. Patient labs showed hypokalemia. 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 Venous insufficiency of both lower extremities Home Medications amlodipine 10 mg PO DAILY 06/23/13 [History Last Taken 10/05/21 10:00] pentoxifylline 400 mg PO BID 06/23/13 [History Last Taken 10/05/21 10:00] rosuvastatin 20 mg PO QHS 06/23/13 [History Last Taken 10/04/21 22:00] metoprolol tartrate 100 mg-hydrochlorothiazide 25 mg tablet 1 tab PO DAILY 02/24/20 [History Last Taken 08/13/21] multivitamin 1 tab PO DAILY 02/24/20 [History Last Taken Unknown] omega-3 fatty acids-fish oil 360 mg-1,200 mg capsule 1 cap PO DAILY 02/24/20 [History Last Taken Unknown] ramipril 10 mg capsule 10 mg PO DAILY cap 02/24/20 [History Last Taken 10/05/21 10:00] furosemide 20 mg tablet 20 mg PO DAILY PRN PRN tab 07/19/21 [History Last Taken Unknown] famotidine 20 mg PO DAILY 09/08/21 [History Last Taken Unknown] ferrous sulfate [FeroSul] 325 mg PO BID 09/08/21 [History Last Taken Unknown] folic acid 1 mg PO DAILY 09/08/21 [History Last Taken Unknown] sennosides [Senokot] 8.6 mg PO BID PRN 09/08/21 [History Last Taken 10/04/21 09:00] tramadol 50 mg PO Q6H PRN PRN 09/08/21 [History Last Taken Unknown] Eliquis 2.5 mg PO BID 10 Days #20 tab 09/25/21 [Rx Last Taken 10/05/21 10:00] acetaminophen 1,000 mg PO Q8 09/28/21 [History Last Taken 10/05/21 10:00] aspirin 325 mg PO DAILY 09/28/21 [History Last Taken Unknown] pantoprazole 40 mg PO DAILY 09/28/21 [History Last Taken 10/05/21 10:00] polysaccharide iron complex [Ferrex 150] 150 mg PO BIDCM 09/28/21 [History Last Taken Unknown] Allergy/AdvReac Type Severity Reaction Status Date / Time No Known Drug Allergies Allergy NONE Verified 10/13/21 07:24 Family History Mother CAD (coronary artery disease) Sister Cancer lung Surgical History H/O coronary artery bypass surgery (1983) History of appendectomy History of carpal tunnel release History of exploratory laparotomy History of left heart catheterization (08/13/21) History of right hip replacement History of surgical removal of skin lesion History of total bilateral knee replacement History of total left hip replacement Social History household members: spouse Smoking Status: Former smoker alcohol intake: never substance use type: does not use ROS Constitutional Constitutional: Denies anorexia or chills ENT HEENT: Denies dizziness Cardiovascular Cardiovascular: Denies chest pain Respiratory/Chest Respiratory/Chest: Denies shortness of breath at rest Gastrointestinal Gastrointestinal: Reports abdominal pain, belching, bloating and diarrhea; Denie s constipation, heartburn, hematemesis, melena or vomiting Genitourinary Genitourinary: Denies burning urination Musculoskeletal Musculoskeletal: Denies joint swelling Integumentary Integumentary: Denies rash Neurologic Neurologic: Denies abnormal speech, focal weakness, paresthesias or sensory deficit Endocrine Endocrinology: Denies palpitations Hematologic/Lymphatic Hematologic/Lymphatic: Denies easy bleeding or easy bruising Vital Signs Vital Signs Vital Signs: 10/13/21 07:13 10/13/21 07:22 10/13/21 08:00 Temperature 98.6 F 98.6 F Temperature Source Temporal Temporal Pulse Rate 101 H 99 82 Respiratory Rate 22 H 22 H 19 H Respiratory Effort Respiratory Depth Respiratory Pattern Blood Pressure 118/68 118/68 140/65 H Blood Pressure Mean 84 84 90 Blood Pressure Source Blood Pressure Position Blood Pressure Location Pulse Ox 98 95 97 Oxygen Delivery Method Room Air Room Air Room Air 10/13/21 11:13 10/13/21 11:48 10/13/21 12:40 Temperature 98.0 F 98.2 F Temperature Source Oral Oral Pulse Rate 58 L 55 L Respiratory Rate 20 H 18 Respiratory Effort Normal Respiratory Depth Normal Respiratory Pattern Normal Blood Pressure 137/76 H 120/72 Blood Pressure Mean 96 88 Blood Pressure Source Monitor Blood Pressure Position Semi-Fowlers Blood Pressure Location Right Arm Pulse Ox 94 96 Oxygen Delivery Method Room Air Room Air Room Air 10/13/21 14:25 Temperature Temperature Source Pulse Rate Respiratory Rate Respiratory Effort Respiratory Depth Respiratory Pattern Blood Pressure Blood Pressure Mean Blood Pressure Source Blood Pressure Position Blood Pressure Location Pulse Ox 93 Oxygen Delivery Method Room Air Weight Weight: 160 lb 0.889 oz Body Mass Index (BMI) 25.0 Physical Exam Const alert and no apparent distress HEENT normocephalic and head/scalp atraumatic Resp normal respiratory effort Cardio regular rate GI soft to palpation; Negative for non-distended Palpation: tender other (Diffuse mainly mid abdomen, no guarding-equivocal rebound) and other Other Details: Incisions healing well clean dry intact no sign of infection ; Negative for guarding Extremity no clubbing, cyanosis or edema Neuro CN's II-XII intact bilaterally Psych mental status grossly normal Results Medical Records Data Medical Nutrition Assessment Dietitian: Malnutrition Criteria Met Start: 10/13/21 14:59 Freq: Status: Active Protocol: Document 10/13/21 14:59 AG (Rec: 10/13/21 14:59 AG [id number]) Nutrition Malnutrition Evidence of Malnutrition Exists Yes Malnutrition (moderate): Acute Illness/Injury Evidenced By Suboptimal Energy Intake ( Moderate),Weight Loss (Severe) ,Physical Changes (Mild) Clinical Problem Acute Disease or Injury Related Malnutrition Etiology moderate, acute malnutrition r /t inadequate energy intake d/ t recent hospitalizations, SBO , GI dysfunction Signs/Symptoms as evidenced by unintentional 22.9#/12.5% wt loss x 2 months ; 3.9#/2.4% wt loss over last 4 days; estimated PO intake meeting <75% of estimated energy needs >1 month; mild muscle wasting/fat loss in temporal, acromion, and clavicle region Status Active Problem Recommendation Dietitian Recommendations/Changes Recommend advance diet as tolerated to transitional diet ; ensure w/ medpass as diet advanced. If unable to advance PO diet over next 72 hours, recommend nutrition support Lab / Micro Data Result Diagrams: 10/14/21 05:45 10/14/21 05:45 Labs: Laboratory Results - last 24 hr 10/13/21 07:35: WBC 19.2 H, RBC 3.97 L, Hgb 12.0 L, Hct 37.8 L, MCV 95.2 H, MCH 30.2, MCHC 31.7 L, RDW Std Deviation 57.4 H, RDW Coeff of Denise 16.2 H, Plt Count 411, MPV 9.9, Immature Gran % (Auto) 0.500, Neut % (Auto) 94.0 H, Lymph % (Auto) 3.1 L, [place] % (Auto) 2.2, Eos % (Auto) 0.0, Baso % (Auto) 0.2, Absolute Neuts (auto) 18.1 H, Absolute Lymphs (auto) 0.60 L, Nucleated RBC % 0, Platelet Estimate ADEQUATE, RBC Morphology NORM C+C 10/13/21 07:35: Sodium 137, Potassium 2.9 L, Chloride 102, Carbon Dioxide 25.0, Anion Gap 10, BUN 26 H, Creatinine 1.05, Estim Creat Clear Calc 48.09, Est GFR (MDRD) Af Amer 86, Est GFR (MDRD) Non-Af 71, BUN/Creatinine Ratio 24.8 H, Glucose 154 H, Calcium 8.3 L, Total Bilirubin 0.50, AST 23, ALT 22, Alkaline Phosphatase 223 H, Total Protein 8.1, Albumin 2.7 L, Globulin 5.4 H, Albumin/Globulin Ratio 0.5 L, Lipase 46 L 10/13/21 09:02: Urine Color Yellow, Urine Clarity Clear, Urine pH 5.0, Ur Specific [place] 1.015, Urine Protein 15 H, Urine Glucose (UA) Normal, Urine Ketones Negative, Urine Occult Blood Negative, Urine Nitrite Negative, Urine Bilirubin Negative, Urine Urobilinogen Normal, Ur Leukocyte Esterase Negative, Urine RBC 0 SEEN, Urine WBC 0 SEEN, Ur Squamous Epith Cells 0-5 SEEN, Urine Bacteria 0 SEEN, Hyaline Casts 0-5 SEEN, Urine Mucus 0 SEEN 10/13/21 12:12: Procalcitonin 0.34 H Radiology Impression Abdomen/Pelvis CT 10/13/21 07:39 IMPRESSION: Suspect adynamic ileus. Electronically Signed: Harvey Easley MD at 9:10 EST Reading Location ID and State: [employer] / [employer] , Service support , Chest X-Ray 10/13/21 10:02 IMPRESSION: No active disease. Electronically Signed: Harvey Easley MD at 10:37 EST Reading Location ID and State: [employer] / [employer] , Service support , KUB X-Ray 10/13/21 11:09 IMPRESSION: Nasogastric tube coiled in the left upper quadrant likely in the fundus the stomach. Moderate small bowel obstruction. Electronically Signed: Harvey Easley MD at 11:29 EST Reading Location ID and State: [id number] / [employer] , Service support , Assessment & Plan Assessment/Plan (1) Adynamic ileus: (2) Leukocytosis: (3) Hypokalemia: (4) History of small bowel obstruction: PLAN: Due to patient having diarrhea since Friday we will plan to check stool studies including C. difficile and enteric pathogens. Continue NG/IV fluids, will check KUB in a.m. Hypokalemia?replace we will give an additional 40 KCl IV and recheck potassium in 4 hours as patient has only gotten 20 mg and his potassium was 2.9. Unsure of the source of patient's white blood cell count question if it could be related to diarrhea as this UA was clean nothing obvious on CT Did review CT abdomen pelvis not seeing obvious transition suggest a small bowel obstruction patient did have distended small bowel as well as right/transverse colon with decompressed left colon which could be likely due to patient's previous diarrhea. Justyna Denney M.D. Pager: [phone] [facility] [address] [place] [address], [address] [address], [address] [place] [address] Office: [phone] Charges/Coding Visit Charges Inpatient E&M: 34257 Init Hosp L2
[2021-10-13] MEDS: Metoprolol Tartrate 5 MG/5 ML Vial IV (17:40)
[2021-10-13] MEDS: Menthol/Lanolin/Calamine/Znox 113 GM Tube 1 APPLIC TOPICAL (22:06)
[2021-10-14] VITALS (15 sets, daily range): BP systolic 106–133; BP diastolic 40–82; PULSE 60–103; RESP 16–20; TEMP 36.6–37.4; O2SAT 93–95
[2021-10-14] MEDS: Metoprolol Tartrate 5 MG/5 ML Vial IV ×4 (00:14→17:14)
[2021-10-14 01:41] LABS: Potassium 3.9 mmol/L (3.5-5.1)
--- NOTE | 2021-10-14 05:55 | RAD_ITS ---
STUDY: X-RAY - ABDOMEN/PELVIS REASON FOR EXAM: Male, 86 years old. ileus TECHNIQUE: Single AP view of the abdomen / pelvis. COMPARISON: 10/13/2021 FINDINGS: Interval removal nasogastric tube. No change in the dilatation of multiple small bowel and colon consistent with adynamic ileus. The visualized liver, spleen and kidneys are grossly normal in size and morphology. Normal soft tissue structures. Status post bilateral hip arthroplasty RAD/Abdomen Single View (Portable) IMPRESSION: 1. Interval removal nasogastric tube. 2. No change in a dynamic ileus. Electronically Signed: Harvey Easley MD at 8:33 EST ,
[2021-10-14 06:17] LABS: Absolute Lymphocyte Count 0.71 X10^3/uL (0.83-4.51); Basophil# 0.02 X10^3/uL; Basophil% 0.1 % (0-1); Hematocrit 30.9 % (40-54); Hemoglobin 9.8 g/dL (13.0-16.5); Lymphocyte # 0.71 X10^3/ul (0.83-4.51); Lymphocyte % 5.3 % (19-41); Mean Corp Hgb Conc 31.7 g/dL (32-36); Mean Corpuscular Hgb 29.8 pg (27.0-32.0); Mean Corpuscular Volume 93.9 fL (80-94); Mean Platelet Vol. 10.4 fl (6.2-12.0); Monocyte# 0.58 X10^3/uL; Monocyte% 4.3 % (0-10); NRBC Flagged by Analyzer 0 % (0-5); Neutrophil # 12.04 X10^3/uL (2.7-7.7); Neutrophil % 89.9 % (47-70); POSITIVE MORPHOLOGY YES; Platelet Count 318 K/mm3 (150-450); RBC Distribution Width CV 16.4 % (11.6-14.6); RBC Distribution Width SD 56.6 fl (35.1-43.9); Red Blood Count 3.29 M/mm3 (4.6-6.2); White Blood Count 13.4 K/mm3 (4.4-11.0)
[2021-10-14 06:18] LABS: Differential Indicated SCAN CRITERIA MET
[2021-10-14] MEDS: Lactated Ringers 1,000 ML 100 ML IV ×2 (06:50→17:15)
[2021-10-14 06:58] LABS: ALB/GLOB Ratio 0.5 RATIO (0.9-2.4); AST(SGOT) 26 U/L (15-37); Alanine Aminotransfer ALT/SGPT 16 U/L (16-61); Albumin, Serum 1.9 g/dL (3.2-5.0); Alkaline Phosphatase 156 U/L (45-117); Anion Gap 5 (5-15); BUN 20 mg/dL (7-18); BUN/Creat Ratio 21.8 RATIO (10-20); Calcium,Total 7.4 mg/dL (8.5-10.1); Chloride 106 mmol/L (98-107); Creatinine, Serum 0.92 mg/dL (0.70-1.30); EST Glomerular Filtration Rate 83 mL/min (>60); Est Glom Filt Rate - Afr Amer 101 mL/min (>60); Estimated Creatinine Clearance 54.88 ml/min; Glucose 90 mg/dL (74-106); Phosphorus 2.7 mg/dL (2.5-4.9); Potassium 3.8 mmol/L (3.5-5.1); Protein, Total 5.9 g/dL (6.4-8.2); Sodium Level 139 mmol/L (136-145)
[2021-10-14 07:08] LABS: Anisocytosis 1+
--- NOTE | 2021-10-14 08:01 | PN.SURG_ITS ---
Subjective Subjective Patient states abdominal pain has improved. Patient did accidentally remove his NG yesterday. Was not replaced initially. KUB this morning does still show dilated small bowel. Patient's white blood count has decreased from 19-13 patient is not on any antibiotics Objective Data Objective Data Vital Signs: Vital Signs Temp Pulse Resp BP Pulse Ox 98.2 F 73 20 H 128/82 H 95 10/14/21 07:55 10/14/21 07:55 10/14/21 07:55 10/14/21 07:55 10/14/21 07:55 Oxygen Delivery Method Room Air Weight: 161 lb 2.526 oz Body Mass Index (BMI) 25.0 Intake & Output: Intake and Output for Last 24 Hours 10/12/21 10/13/21 10/14/21 23:59 23:59 23:59 Intake Total 2611.66 / 2611.66 875 / 875 Output Total 475 / 575 250 / 250 Balance 2136.66 / 2036.66 625 / 625 Medical Nutrition Assessment Dietitian: Malnutrition Criteria Met Start: 10/13/21 14:5 9 Freq: Status: Active Protocol: Document 10/13/21 14:59 AG (Rec: 10/13/21 14:59 AG [id number]) Nutrition Malnutrition Evidence of Malnutrition Exists Yes Malnutrition (moderate): Acute Illness/Injury Evidenced By Suboptimal Energy Intake ( Moderate),Weight Loss (Severe) ,Physical Changes (Mild) Clinical Problem Acute Disease or Injury Related Malnutrition Etiology moderate, acute malnutrition r /t inadequate energy intake d/ t recent hospitalizations, SBO , GI dysfunction Signs/Symptoms as evidenced by unintentional 22.9#/12.5% wt loss x 2 months ; 3.9#/2.4% wt loss over last 4 days; estimated PO intake meeting <75% of estimated energy needs >1 month; mild muscle wasting/fat loss in temporal, acromion, and clavicle region Status Active Problem Recommendation Dietitian Recommendations/Changes Recommend advance diet as tolerated to transitional diet ; ensure w/ medpass as diet advanced. If unable to advance PO diet over next 72 hours, recommend nutrition support Lab / Micro Data Result Diagrams: 10/14/21 05:45 10/14/21 05:45 Labs: Laboratory Results - last 24 hr 10/13/21 07:35: Platelet Estimate ADEQUATE, RBC Morphology NORM C+C 10/13/21 07:35: Sodium 137, Potassium 2.9 L, Chloride 102, Carbon Dioxide 25.0, Anion Gap 10, BUN 26 H, Creatinine 1.05, Estim Creat Clear Calc 48.09, Est GFR (MDRD) Af Amer 86, Est GFR (MDRD) Non-Af 71, BUN/Creatinine Ratio 24.8 H, Glucose 154 H, Calcium 8.3 L, Total Bilirubin 0.50, AST 23, ALT 22, Alkaline Phosphatase 223 H, Total Protein 8.1, Albumin 2.7 L, Globulin 5.4 H, Albumin/Globulin Ratio 0.5 L, Lipase 46 L 10/13/21 09:02: Urine Color Yellow, Urine Clarity Clear, Urine pH 5.0, Ur Specific [place] 1.015, Urine Protein 15 H, Urine Glucose (UA) Normal, Urine Ketones Negative, Urine Occult Blood Negative, Urine Nitrite Negative, Urine Bilirubin Negative, Urine Urobilinogen Normal, Ur Leukocyte Esterase Negative, Urine RBC 0 SEEN, Urine WBC 0 SEEN, Ur Squamous Epith Cells 0-5 SEEN, Urine Bacteria 0 SEEN, Hyaline Casts 0-5 SEEN, Urine Mucus 0 SEEN 10/13/21 12:12: Procalcitonin 0.34 H 10/14/21 01:02: Potassium 3.9 10/14/21 05:45: WBC 13.4 H, RBC 3.29 L, Hgb 9.8 L, Hct 30.9 L, MCV 93.9, MCH 29.8, MCHC 31.7 L, RDW Std Deviation 56.6 H, RDW Coeff of Denise 16.4 H, Plt Count 318, MPV 10.4, Immature Gran % (Auto) 0.400, Neut % (Auto) 89.9 H, Lymph % (Auto) 5.3 L, [place] % (Auto) 4.3, Eos % (Auto) 0.0, Baso % (Auto) 0.1, Absolute Neuts (auto) 12.0 H, Absolute Lymphs (auto) 0.71 L, Nucleated RBC % 0, Anisocytosis 1+ 10/14/21 05:45: Sodium 139, Potassium 3.8, Chloride 106, Carbon Dioxide 28.0, Anion Gap 5, BUN 20 H, Creatinine 0.92, Estim Creat Clear Calc 54.88, Est GFR (MDRD) Af Amer 101, Est GFR (MDRD) Non-Af 83, BUN/Creatinine Ratio 21.8 H, Glucose 90, Calcium 7.4 L, Phosphorus 2.7, Total Bilirubin 0.60, AST 26, ALT 16, Alkaline Phosphatase 156 H, Total Protein 5.9 L, Albumin 1.9 L, Globulin 4.0, Albumin/Globulin Ratio 0.5 L Radiography Diagnostic Testing: Radiology Impression Abdomen/Pelvis CT 10/13/21 07:39 IMPRESSION: Suspect adynamic ileus. Electronically Signed: Harvey Easley MD at 9:10 EST Reading Location ID and State: [employer] / [employer] , Service support , Chest X-Ray 10/13/21 10:02 IMPRESSION: No active disease. Electronically Signed: Harvey Easley MD at 10:37 EST Reading Location ID and State: [employer] / [employer] , Service support , KUB X-Ray 10/13/21 11:09 IMPRESSION: Nasogastric tube coiled in the left upper quadrant likely in the fundus the stomach. Moderate small bowel obstruction. Electronically Signed: Harvey Easley MD at 11:29 EST Reading Location ID and State: [employer] / [employer] , Service support , Physical Exam Const alert and no apparent distress HEENT normocephalic and head/scalp atraumatic Resp normal respiratory effort Cardio regular rate GI soft to palpation; Negative for non-distended Palpation: tender other (Mild diffuse, no guarding or rebound) and other Other Details: Incisions healing well clean dry intact no sign of infection ; Negative for guarding Extremity no clubbing, cyanosis or edema Neuro CN's II-XII intact bilaterally Psych mental status grossly normal Assessment & Plan Assessment/Plan (1) Adynamic ileus: (2) Leukocytosis: (3) Hypokalemia: (4) History of small bowel obstruction: PLAN: Patient has not had any bowel movements since admitted?stool studies ordered Continue IV fluids, KUB does show some distended small bowel again will replace NG Hypokalemia?resolved Leukocytosis improved to 13 from 19. Unknown etiology. Justyna Denney M.D. Pager: [phone] [facility] [address] [place] [address], [facility], [address] [place] [address] Office: [phone] Charges/Coding Visit Charges Inpatient E&M: 63729 Subs Hosp L2
[2021-10-14] MEDS: Menthol/Lanolin/Calamine/Znox 113 GM Tube 1 APPLIC TOPICAL ×2 (09:38→21:00)
[2021-10-14] MEDS: Enoxaparin 40 MG/0.4 ML Syringe SC (09:38)
--- NOTE | 2021-10-14 09:50 | RAD_ITS ---
STUDY: X-RAY - ABDOMEN/PELVIS REASON FOR EXAM: Male, 86 years old. ng placement TECHNIQUE: Single AP view of the abdomen / pelvis. COMPARISON: 10/14/2021 at 06 27 FINDINGS: Interval placement of nasogastric tube with the tip in the left upper quadrant likely in the fundus the stomach. No change in the dilatation of multiple loops of small bowel and colon suggestive of an adynamic ileus. Graft The visualized liver, spleen and kidneys are grossly normal in size and morphology. Normal soft tissue structures. Normal visualized osseous structures. RAD/Abdomen Single View (Portable) IMPRESSION: 1. Interval placement of nasogastric tube with the tip in the left upper quadrant likely in the fundus the stomach. 2. No change in suspected adynamic ileus. Electronically Signed: Harvey Easley MD at 10:04 [facility] ,
--- NOTE | 2021-10-14 12:01 | PCM.PN.HOSP ---
Subjective Subjective Patient pulled out his NG but tried to replace himself. Currently, nursing is at the bedside replacing his NG. He denies any current abdominal pain and per nursing report he had not had significant issues with pain overnight. He still remains without flatus or bowel movement. He has no significant complaints at this time. He states he is excited about watching the [employer] tonight and is cheering for the [employer]. Objective Data Objective Data Vital Signs: Vital Signs Temp Pulse Resp BP Pulse Ox 98.2 F 73 20 H 128/82 H 95 10/14/21 07:55 10/14/21 07:55 10/14/21 07:55 10/14/21 07:55 10/14/21 07:55 Oxygen Delivery Method Room Air Weight: 73.1 kg Body Mass Index (BMI) 25.0 Intake & Output: Intake and Output for Last 24 Hours 10/12/21 10/13/21 10/14/21 23:59 23:59 23:59 Intake Total 2611.66 / 2611.66 1266.67 / 1266.67 Output Total 475 / 575 250 / 250 Balance 2136.66 / 2036.66 1016.67 / 1016.67 Medical Nutrition Assessment Dietitian: Malnutrition Criteria Met Start: 10/13/21 14:59 Freq: Status: Active Protocol: Document 10/13/21 14:59 (Rec: 10/13/21 14:59 [id number]) Nutrition Malnutrition Evidence of Malnutrition Exists Yes Malnutrition (moderate): Acute Illness/Injury Evidenced By Suboptimal Energy Intake ( Moderate),Weight Loss (Severe) ,Physical Changes (Mild) Clinical Problem Acute Disease or Injury Related Malnutrition Etiology moderate, acute malnutrition r /t inadequate energy intake d/ t recent hospitalizations, SBO , GI dysfunction Signs/Symptoms as evidenced by unintentional 22.9#/12.5% wt loss x 2 months ; 3.9#/2.4% wt loss over last 4 days; estimated PO intake meeting <75% of estimated energy needs >1 month; mild muscle wasting/fat loss in temporal, acromion, and clavicle region Status Active Problem Recommendation Dietitian Recommendations/Changes Recommend advance diet as tolerated to transitional diet ; ensure w/ medpass as diet advanced. If unable to advance PO diet over next 72 hours, recommend nutrition support Lab / Micro Data Result Diagrams: 10/14/21 05:45 10/14/21 05:45 Labs: Laboratory Results - last 24 hr 10/13/21 12:12: Procalcitonin 0.34 H 10/14/21 01:02: Potassium 3.9 10/14/21 05:45: WBC 13.4 H, RBC 3.29 L, Hgb 9.8 L, Hct 30.9 L, MCV 93.9, MCH 29.8, MCHC 31.7 L, RDW Std Deviation 56.6 H, RDW Coeff of Denise 16.4 H, Plt Count 318, MPV 10.4, Immature Gran % (Auto) 0.400, Neut % (Auto) 89.9 H, Lymph % (Auto) 5.3 L, Rains % (Auto) 4.3, Eos % (Auto) 0.0, Baso % (Auto) 0.1, Absolute Neuts (auto) 12.0 H, Absolute Lymphs (auto) 0.71 L, Nucleated RBC % 0, Anisocytosis 1+ 10/14/21 05:45: Sodium 139, Potassium 3.8, Chloride 106, Carbon Dioxide 28.0, Anion Gap 5, BUN 20 H, Creatinine 0.92, Estim Creat Clear Calc 54.88, Est GFR (MDRD) Af Amer 101, Est GFR (MDRD) Non-Af 83, BUN/Creatinine Ratio 21.8 H, Glucose 90, Calcium 7.4 L, Phosphorus 2.7, Total Bilirubin 0.60, AST 26, ALT 16, Alkaline Phosphatase 156 H, Total Protein 5.9 L, Albumin 1.9 L, Globulin 4.0, Albumin/Globulin Ratio 0.5 L Radiography Diagnostic Testing: Radiology Impression KUB X-Ray 10/14/21 05:55 IMPRESSION: 1. Interval removal nasogastric tube. 2. No change in a dynamic ileus. Electronically Signed: Harvey Easley MD at 8:33 EST , KUB X-Ray 10/14/21 09:50 IMPRESSION: 1. Interval placement of nasogastric tube with the tip in the left upper quadrant likely in the fundus the stomach. 2. No change in suspected adynamic ileus. Electronically Signed: Harvey Easley MD at 10:04 EST , Physical Exam Const alert, oriented x3, no apparent distress and average body habitus Constitutional Narrative: Patient is an elderly white male lying in bed, currently appears comfortable, nontoxic, nursing is at the bedside, patient does have periodic episodes of confusion but is at baseline alert and oriented x3 General Appearance: cooperative Exam Limitations: no limitations HEENT normocephalic, head/scalp atraumatic and moist oral mucous membranes; Negative for hearing grossly normal bilaterally HEENT Narrative: Dentition is poor, Mallampati is 2 Head and Scalp: normocephalic Neck Neck Narrative: Trachea midline, no thyroid enlargement Resp normal respiratory effort, no retractions, no use of accessory muscles and clear to auscultation bilaterally Resp Narrative: Diminished but clear Auscultation: Negative for crackles, rales, rhonchi or wheezes Cardio regular rate, regular rhythm, S1 normal heart sound, S2 normal heart sound, no murmurs, no rub, no gallops, no clicks and no JVD GI GI Narrative: Abdomen is distended with hypoactive bowel sounds and diffuse mild tenderness, Extremity Extremity Narrative: Trace bilateral lower extremity edema, no cyanosis or clubbing, pedal pulses are 1+ bilateral Skin no rashes or lesions noted, skin turgor normal, no jaundice, no petechiae and no mottling Skin Narrative: Well-healing incision left hip, bilateral lower extremity skin changes consistent with venous stasis that is chronic Neuro moves all extremities and no focal motor deficits Neuro Narrative: Generalized weakness Sensorium / Orientation: awake and alert Speech: speech normal Assessment & Plan Assessment/Plan (1) Adynamic ileus: (2) History of small bowel obstruction: (3) Acute hypokalemia: (4) Leukocytosis: PLAN: Adynamic ileus -Patient remains without flatus or bowel movement -NG tube in place -175 cc of fluid out the NG in the last 24 hours -Continue n.p.o. -Continue to IV fluids with LR at 100 cc/h -Morphine for pain -Enteric panel and C. difficile are negative -Dr. 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 -Currently in rate controlled atrial fibrillation -Hold oral metoprolol -Continue metoprolol IV at 5 mg every 6 hours CKD stage IIIa -Current serum creatinine is 0.7 -Monitor CAD status post CABG/hypertension/hyperlipidemia/PAD -Hold Home oral medications given ileus -IV metoprolol has been ordered -As needed hydralazine for systolic pressure greater than 160 is available -Restart home medications once obstruction has resolved GERD -Continue IV PPI -Restart oral once able Macrocytic anemia -Hemoglobin at baseline appears to be between 8 and 10 -Hemoglobin is closer to his baseline today at 9.8 -Is on oral iron at baseline--> currently on hold with bowel obstruction At risk for malnutrition -P.o. intake has been poor as he is n.p.o. secondary to ileus DVT prophylaxis -Prophylactic subcu heparin for now CODE STATUS -DNR CCA with no intubation as per discussion upon admission emergency department Charges/Coding Visit Charges Inpatient E&M: 81735 Subs Hosp L2
[2021-10-14] MEDS: 0.9% Saline Lock 10 ML Syringe IV ×2 (12:25→17:14)
[2021-10-15] VITALS (20 sets, daily range): BP systolic 103–140; BP diastolic 51–68; PULSE 83–100; RESP 18–22; TEMP 36.5–37.6; O2SAT 90–98; BMI 24.2
[2021-10-15] MEDS: Metoprolol Tartrate 5 MG/5 ML Vial IV ×4 (00:09→19:48)
[2021-10-15] MEDS: Lactated Ringers 1,000 ML 100 ML IV ×2 (02:39→11:35)
[2021-10-15 06:12] LABS: Absolute Lymphocyte Count 0.83 X10^3/uL (0.83-4.51); Absolute Neutrophil Count 10.1 X10^3/uL (2.0-7.7); Basophil# 0.02 X10^3/uL; Basophil% 0.2 % (0-1); Eosinophil# 0.01 X10^3/uL; Eosinophils% 0.1 % (0-5); Hematocrit 29.9 % (40-54); Hemoglobin 9.4 g/dL (13.0-16.5); Lymphocyte # 0.83 X10^3/ul (0.83-4.51); Lymphocyte % 7.2 % (19-41); Mean Corp Hgb Conc 31.4 g/dL (32-36); Mean Corpuscular Hgb 29.3 pg (27.0-32.0); Mean Corpuscular Volume 93.1 fL (80-94); Mean Platelet Vol. 10.2 fl (6.2-12.0); Monocyte# 0.53 X10^3/uL; Monocyte% 4.6 % (0-10); NRBC Flagged by Analyzer 0 % (0-5); Neutrophil # 10.09 X10^3/uL (2.7-7.7); Neutrophil % 87.6 % (47-70); POSITIVE MORPHOLOGY YES; Platelet Count 299 K/mm3 (150-450); RBC Distribution Width CV 16.5 % (11.6-14.6); RBC Distribution Width SD 55.8 fl (35.1-43.9); Red Blood Count 3.21 M/mm3 (4.6-6.2); White Blood Count 11.5 K/mm3 (4.4-11.0)
[2021-10-15 06:22] LABS: Differential Indicated SCAN CRITERIA MET
[2021-10-15 06:37] LABS: ALB/GLOB Ratio 0.4 RATIO (0.9-2.4); AST(SGOT) 30 U/L (15-37); Alanine Aminotransfer ALT/SGPT 17 U/L (16-61); Albumin, Serum 1.8 g/dL (3.2-5.0); Alkaline Phosphatase 147 U/L (45-117); Anion Gap 5 (5-15); BUN 28 mg/dL (7-18); BUN/Creat Ratio 30.8 RATIO (10-20); Calcium,Total 7.6 mg/dL (8.5-10.1); Chloride 106 mmol/L (98-107); Creatinine, Serum 0.91 mg/dL (0.70-1.30); EST Glomerular Filtration Rate 84 mL/min (>60); Est Glom Filt Rate - Afr Amer 102 mL/min (>60); Estimated Creatinine Clearance 55.49 ml/min; Glucose 73 mg/dL (74-106); Potassium 3.4 mmol/L (3.5-5.1); Protein, Total 5.8 g/dL (6.4-8.2); Sodium Level 140 mmol/L (136-145)
[2021-10-15 06:51] LABS: Differential Comment SCANNED
--- NOTE | 2021-10-15 06:51 | RAD_ITS ---
STUDY: X-RAY - ABDOMEN/PELVIS REASON FOR EXAM: Male, 86 years old. Ileus -- portable TECHNIQUE: Single AP view of the abdomen / pelvis. COMPARISON: Comparison is made with prior examination dated 10/14/2021. FINDINGS: An NG tube is seen with the tip in the fundal portion of the stomach. There are dilated loops of the small intestine with a non-distended colon consistent with a small bowel obstruction. The visualized liver, spleen and kidneys are grossly normal in size and morphology. Normal soft tissue structures. There are diffuse degenerative changes of the visualized lumbar spine. RAD/Abdomen Single View (Portable) IMPRESSION: Findings suggestive of a small bowel obstruction. Small amount of gas is seen in the colon. Electronically Signed: Porter Singh MD at 12:41 EST ,
--- NOTE | 2021-10-15 07:50 | PN.SURG_ITS ---
Subjective Subjective Patient had increased output from NG overnight per nursing liter plus what was in the canister which was 600 patient additional about 200 and the tubing. Patient denies any bowel movement or flatus. Objective Data Objective Data Vital Signs: Vital Signs Temp Pulse Resp BP Pulse Ox 98.4 F 90 18 122/52 H 92 10/15/21 02:22 10/15/21 05:26 10/15/21 02:22 10/15/21 05:26 10/15/21 02:22 Oxygen Delivery Method Room Air Weight: 154 lb 12.232 oz Body Mass Index (BMI) 25.0 Intake & Output: Intake and Output for Last 24 Hours 10/13/21 10/14/21 10/15/21 23:59 23:59 23:59 Intake Total 2611.66 / 2611.66 2135.00 / 2165.00 1060 / 1060 Output Total 475 / 575 1000 / 1550 1300 / 1300 Balance 2136.66 / 2036.66 1135.00 / 615.00 -240 / -240 Medical Nutrition Assessment Dietitian: Malnutrition Criteria Met Start: 10/13/21 14:59 Freq: Status: Active Protocol: Document 10/13/21 14:59 AG (Rec: 10/13/21 14:59 AG [id number]) Nutrition Malnutrition Evidence of Malnutrition Exists Yes Malnutrition (moderate): Acute Illness/Injury Evidenced By Suboptimal Energy Intake ( Moderate),Weight Loss (Severe) ,Physical Changes (Mild) Clinical Problem Acute Disease or Injury Related Malnutrition Etiology moderate, acute malnutrition r /t inadequate energy intake d/ t recent hospitalizations, SBO , GI dysfunction Signs/Symptoms as evidenced by unintentional 22.9#/12.5% wt loss x 2 months ; 3.9#/2.4% wt loss over last 4 days; estimated PO intake meeting <75% of estimated energy needs >1 month; mild muscle wasting/fat loss in temporal, acromion, and clavicle region Status Active Problem Recommendation Dietitian Recommendations/Changes Recommend advance diet as tolerated to transitional diet ; ensure w/ medpass as diet advanced. If unable to advance PO diet over next 72 hours, recommend nutrition support Lab / Micro Data Result Diagrams: 10/15/21 05:28 10/15/21 05:28 Labs: Laboratory Results - last 24 hr 10/15/21 05:28: WBC 11.5 H, RBC 3.21 L, Hgb 9.4 L, Hct 29.9 L, MCV 93.1, MCH 29.3, MCHC 31.4 L, RDW Std Deviation 55.8 H, RDW Coeff of Denise 16.5 H, Plt Count 299, MPV 10.2, Immature Gran % (Auto) 0.300, Neut % (Auto) 87.6 H, Lymph % (Auto) 7.2 L, Nobles % (Auto) 4.6, Eos % (Auto) 0.1, Baso % (Auto) 0.2, Absolute Neuts (auto) 10.1 H, Absolute Lymphs (auto) 0.83, Nucleated RBC % 0, Differential Comment SCANNED 10/15/21 05:28: Sodium 140, Potassium 3.4 L, Chloride 106, Carbon Dioxide 29.0, Anion Gap 5, BUN 28 H, Creatinine 0.91, Estim Creat Clear Calc 55.49, Est GFR (MDRD) Af Amer 102, Est GFR (MDRD) Non-Af 84, BUN/Creatinine Ratio 30.8 H, Glucose 73 L, Calcium 7.6 L, Total Bilirubin 0.80, AST 30, ALT 17, Alkaline Phosphatase 147 H, Total Protein 5.8 L, Albumin 1.8 L, Globulin 4.0, Albumin/Globulin Ratio 0.4 L Radiography Diagnostic Testing: Radiology Impression KUB X-Ray 10/14/21 05:55 IMPRESSION: 1. Interval removal nasogastric tube. 2. No change in a dynamic ileus. Electronically Signed: Harvey Easley MD at 8:33 EST Reading Location ID and State: [email or web address] / [employer] , Service support , KUB X-Ray 10/14/21 09:50 IMPRESSION: 1. Interval placement of nasogastric tube with the tip in the left upper quadrant likely in the fundus the stomach. 2. No change in suspected adynamic ileus. Electronically Signed: Harvey Easley MD at 10:04 EST Reading Location ID and State: [employer] / [employer] , Service support , Physical Exam Const no apparent distress Resp normal respiratory effort Cardio regular rate GI Inspection: abdominal distention Palpation: tender other (Mainly in the mid abdomen) Assessment & Plan Assessment/Plan (1) Small bowel obstruction: (2) Adynamic ileus: (3) History of small bowel obstruction: PLAN: Patient having increased output overnight from his NG previously had minimal output. We will plan to check a Gastrografin small bowel follow-through today. Patient may need a diagnostic laparoscopy. Patient did recently have a surgery with Dr. Pearson on 10/01 for lysis of adhesions for small bowel obstruction. Patient's white blood cell count has continued to improve its at 11.5 down from 13 patient is not on any antibiotics. Hypokalemia?replace Justyna Denney M.D. Pager: [phone] [facility] [address] [place] [address], [facility], [address] [place] [id number] Office: [phone]
--- NOTE | 2021-10-15 07:52 | NURSING ---
spoke w/x-ray about port abd film needing done BLAZE
--- NOTE | 2021-10-15 08:48 | RAD_ITS ---
CLINICAL HISTORY: Male, 86 years old. GASTROGRAFIN small bowel follow-through examination. PROCEDURE: Dilute GASTROGRAFIN was introduced through the indwelling nasogastric tube. The examination was followed for 130 minutes. There is evidence of a small bowel dilatation with small bowel obstruction. The transition point was not seen on this examination. RAD/Small Bowel Series Only IMPRESSION: Findings in keeping with a small bowel obstruction the definite transition point cannot be determined at this point. Electronically Signed: Porter Singh MD at 13:40 EST ,
--- NOTE | 2021-10-15 10:19 | CASEMGMT ---
Social Work Note SW reviewed chart. Pt admitted to [facility] from [facility]. SW placed a call to Yuki with TCU. Pt can return to TCU pending pre-cert. SW in to speak with pt. SW introduced self and role at [facility]. SW discussed discharge plans with pt. Pt states he would like to return home if possibly. SW discussed with pt that he may need to return to TCU for continued therapy and informed pt that his bed on TCU will remain on hold. Pt states understanding, agreeable to home or TCU whichever is recommended. SW to continue to follow. Plan: TBD, Likely back to TCU pending pre-cert Shayy Bowman [employer]AYER HELPER, LACE INSPECTOR
[2021-10-15] MEDS: Potassium Chloride 10mEq/100mL 10 MEQ/100 ML IV.SOLN. 100 MEQ IV BOLUS ×4 (11:34→21:15)
[2021-10-15] MEDS: Menthol/Lanolin/Calamine/Znox 113 GM Tube 1 APPLIC TOPICAL ×2 (11:35→21:53)
--- NOTE | 2021-10-15 13:20 | COL_PTH ---
PATIENT: CARIDAD WARD LOC: [facility] U#:[id number] AGE/SX: 86/M ROOM: [facility] RE10/13/[address]: Dr. Mirlande Trevino MD : [id number] BED: 1 DIS: 11/02/2021 SPEC #: [id number] RECD: 10/16/21 08:04 STATUS: ROHAN JETER #: [id number] PRASHANT: 10/15/21 13:[address]: Justyna Denney DEPT: SURGICAL PATHOLOGY RECD BY: Alison Avelar ENTERED: 10/16/21 10:02 SP TYPE: COLON OTHR DR: DO Dr. Justyna Bucio MD John Schinner, MD Tissues: Colon, NOS Procedures: Surgery Specimen Level V Comments: @ Ordering doctor for SUV edited from to @ by RGOOD at 10/16/211601 @ Submitting doctor edited from to @ by RGOOD at 10/16/211601 HEADER OPERATION: Diagnostic laparoscopy, laparotomy, small bowel resection PRE-OP DIAGNOSIS: Small bowel obstruction, adynamic ileus, history small bowel obstruction TISSUE SUBMITTED: Distal jejunum MICROSCOPIC DIAGNOSIS Distal jejunum, segmental resection: Segment of small bowel with focal ulceration, necrosis and transmural acute inflammation. A small benign mesenteric lymph node. Mesenteric tissue with acute inflammation. SJ:vasiliy 10/18/2021 MICROSCOPIC DESCRIPTION Slides are reviewed. GROSS DESCRIPTION Received in fixative is one container labeled with the patient's name and designated distal jejunum. The specimen consists of a segment of small bowel measuring 45 cm in length and 3-6 cm in diameter. Both resection margins are stapled. The serosal surface shows markedly congested area with boswell, purulent exudate. The mucosa is congested and shows grayish-white exudate focally. No mucosal lesion is identified. The lumen contains small amount of liquified fecal material. Also present in the container are three pieces of bowel tissue, most likely donut pieces, measuring in aggregate 3.5 x 2 x 1 cm. Sections will be submitted after fixation. / SJ:vasiliy 10/16/2021 Sections of mesenteric tissue do not reveal any obvious lymph node. [employer] sections are submitted in six cassettes as follows: 1 - detached pieces of tissue, possible donuts, 2 - resection margin, 3 & 4 - lead generation representative sections of small bowel, 5 & 6 - mesenteric tissue. / SJ:vasiliy 10/17/2021 TC:2 CPT: 97478
--- NOTE | 2021-10-15 13:22 | PN.HOSP_ITS ---
Subjective Subjective Patient with increased output from OG over the last 24 hours with about 800 out. No flatus or bowel movement. Abdomen is slightly more tender today than it has been. Objective Data Objective Data Vital Signs: Vital Signs Temp Pulse Resp BP Pulse Ox 98.6 F 88 18 117/66 93 10/15/21 12:22 10/15/21 12:56 10/15/21 12:22 10/15/21 12:22 10/15/21 12:22 Oxygen Delivery Method Room Air Weight: 70.2 kg Body Mass Index (BMI) 25.0 Intake & Output: Intake and Output for Last 24 Hours 10/13/21 10/14/21 10/15/21 23:59 23:59 23:59 Intake Total 2611.66 / 2611.66 2135.00 / 2165.00 2979.33 / 2979.33 Output Total 475 / 575 1000 / 1550 1999 / 1999 Balance 2136.66 / 2036.66 1135.00 / 615.00 979.33 / 979.33 Medical Nutrition Assessment Dietitian: Malnutrition Criteria Met Start: 10/13/21 14:59 Freq: Status: Active Protocol: Document 10/13/21 14:59 AG (Rec: 10/13/21 14:59 AG [id number]) Nutrition Malnutrition Evidence of Malnutrition Exists Yes Malnutrition (moderate): Acute Illness/Injury Evidenced By Suboptimal Energy Intake ( Moderate),Weight Loss (Severe) ,Physical Changes (Mild) Clinical Problem Acute Disease or Injury Related Malnutrition Etiology moderate, acute malnutrition r /t inadequate energy intake d/ t recent hospitalizations, SBO , GI dysfunction Signs/Symptoms as evidenced by unintentional 22.9#/12.5% wt loss x 2 months ; 3.9#/2.4% wt loss over last 4 days; estimated PO intake meeting <75% of estimated energy needs >1 month; mild muscle wasting/fat loss in temporal, acromion, and clavicle region Status Active Problem Recommendation Dietitian Recommendations/Changes Recommend advance diet as tolerated to transitional diet ; ensure w/ medpass as diet advanced. If unable to advance PO diet over next 72 hours, recommend nutrition support Lab / Micro Data Result Diagrams: 10/15/21 05:28 10/15/21 05:28 Labs: Laboratory Results - last 24 hr 10/15/21 05:28: WBC 11.5 H, RBC 3.21 L, Hgb 9.4 L, Hct 29.9 L, MCV 93.1, MCH 29.3, MCHC 31.4 L, RDW Std Deviation 55.8 H, RDW Coeff of Denise 16.5 H, Plt Count 299, MPV 10.2, Immature Gran % (Auto) 0.300, Neut % (Auto) 87.6 H, Lymph % (Auto) 7.2 L, Zavala % (Auto) 4.6, Eos % (Auto) 0.1, Baso % (Auto) 0.2, Absolute Neuts (auto) 10.1 H, Absolute Lymphs (auto) 0.83, Nucleated RBC % 0, Differential Comment SCANNED 10/15/21 05:28: Sodium 140, Potassium 3.4 L, Chloride 106, Carbon Dioxide 29.0, Anion Gap 5, BUN 28 H, Creatinine 0.91, Estim Creat Clear Calc 55.49, Est GFR (MDRD) Af Amer 102, Est GFR (MDRD) Non-Af 84, BUN/Creatinine Ratio 30.8 H, Glucose 73 L, Calcium 7.6 L, Total Bilirubin 0.80, AST 30, ALT 17, Alkaline Phosphatase 147 H, Total Protein 5.8 L, Albumin 1.8 L, Globulin 4.0, Albumin/[place] bulin Ratio 0.4 L Radiography Diagnostic Testing: Radiology Impression KUB X-Ray 10/15/21 06:51 IMPRESSION: Findings suggestive of a small bowel obstruction. Small amount of gas is seen in the colon. Electronically Signed: Porter Singh MD at 12:41 EST , Physical Exam Const alert, oriented x3, no apparent distress and average body habitus Constitutional Narrative: Patient is an elderly white male lying in bed, currently appears comfortable, nontoxic, General Appearance: cooperative Exam Limitations: no limitations HEENT normocephalic, head/scalp atraumatic and moist oral mucous membranes; Negative for hearing grossly normal bilaterally Head and Scalp: normocephalic Resp normal respiratory effort, no retractions, no use of accessory muscles and clear to auscultation bilaterally Resp Narrative: Diminished but clear Auscultation: Negative for crackles, rales, rhonchi or wheezes Cardio regular rate, regular rhythm, S1 normal heart sound, S2 normal heart sound, no murmurs, no rub, no gallops, no clicks and no JVD GI GI Narrative: Abdomen remains distended with hypoactive bowel sounds and diffuse mild tenderness that seems slightly worse today, Extremity Extremity Narrative: Trace bilateral lower extremity edema, no cyanosis or clubbing, pedal pulses are 1+ bilateral Neuro oriented x3, moves all extremities and no focal motor deficits Neuro Narrative: Generalized weakness Sensorium / Orientation: awake and alert Speech: speech normal Assessment & Plan Assessment/Plan (1) Adynamic ileus: (2) History of small bowel obstruction: (3) Acute hypokalemia: (4) Leukocytosis: PLAN: Adynamic ileus -Patient remains without flatus or bowel movement -NG tube in place -800 cc of fluid out the NG in the last 24 hours -Gastrografin small bowel follow-through planned for today -Per general surgery notes patient may need diagnostic lap -Continue n.p.o. -Decrease fluid rate to 50 cc/h as patient is positive about 4 L for his stay -Will give a one-time dose of Lasix to help balance out his fluid status and make him more euvolemic -Morphine for pain -Enteric panel and C. difficile are negative -Dr. Denney following Acute hypokalemia -Potassium back down to 3.4 today likely related to NG output -IV potassium replacement 40 mEq -Repeat in a.m. Leukocytosis -No current signs of infection -Appeared hemoconcentrated on admission -White count continues to improve and down to 11.5 today -UA unremarkable and no abscess on CT -Patient remains afebrile -Procalcitonin was not overtly suggestive of infection -Continue to monitor and hold empiric antibiotics Recent Distal small bowel obstruction -Ex lap with HAYDEN performed 10/01/2021 -now with adynamic ileus Chronic periprosthetic fracture of left proximal femur status post total hip replacement 09/09/2021 -Continue PT/OT -Surgical site appears benign -Probable discharge back to the TCU when ileus has resolved PAF -Oral anticoagulation with Eliquis while n.p.o. -Currently in rate controlled atrial fibrillation -Hold oral metoprolol -Continue metoprolol IV at 5 mg every 6 hours CKD stage IIIa -Current serum creatinine is 0.7 -Monitor CAD status post CABG/hypertension/hyperlipidemia/PAD -Hold Home oral medications given ileus -IV metoprolol has been ordered -As needed hydralazine for systolic pressure greater than 160 is available -Restart home medications once obstruction has resolved GERD -Continue IV PPI -Restart oral once able Macrocytic anemia -Hemoglobin at baseline appears to be between 8 and 10 -Hemoglobin is closer to his baseline today at 9.8 -Is on oral iron at baseline--> currently on hold with bowel obstruction At risk for malnutrition -P.o. intake has been poor as he is n.p.o. secondary to ileus DVT prophylaxis -Prophylactic subcu heparin for now CODE STATUS -DNR CCA with no intubation as per discussion upon admission emergency department Charges/Coding Visit Charges Inpatient E&M: 67913 Subs Hosp L2
[2021-10-15 13:23] LABS: International Normalized Ratio 1.3; Prothrombin Time (Protime)PT. 15.5 SECONDS (11.7-14.9)
[2021-10-15 13:24] LABS: Partial Thromboplast Time 40.4 Seconds (24.1-36.2)
--- NOTE | 2021-10-15 13:39 | NURSING ---
pt to or
--- NOTE | 2021-10-15 13:59 | EKG12_ITS ---
Test Reason : PRE OP Blood Pressure : / mmHG Vent. Rate : 085 BPM Atrial Rate : 085 BPM P-R Int : 224 ms QRS Dur : 152 ms QT Int : 418 ms P-R-T Axes : 027 -76 032 degrees QTc Int : 497 ms Sinus rhythm with 1st degree A-V block Left axis deviation Right bundle branch block Abnormal ECG Confirmed by SAM KNOTT, ANDRES ([id number]), mapping editor AKNG HWANG ([id number]) on 10/18/2021 9:21:49 AM Referred By: CARI Confirmed By:ANDRES VARGAS MD
[2021-10-15] MEDS: Bupivacaine Mpf 0.5% 30 ML VIAL (16:30)
--- NOTE | 2021-10-15 16:59 | OP.PCM_ITS ---
Report of Operation Date of Procedure: 10/15/21 Pre-Operative Diagnosis: Small bowel obstruction Post-Operative Diagnosis: Small bowel obstruction, gangrenous small bowel?jejunum Surgery/Procedure Performed:: Diagnostic laparoscopy converted to laparotomy, resection of small bowel and anastomosis Description of Surgical Findings:: About 60 cm of small bowel was gangrenous and resected at the distal jejunum, 70 cm of the ileum remains. Surgeon: Justyna Denney director hydrogen storage engineering: Sarah Mandujano Type of Anesthesia: General/Supplemental Anesthesiologist: Lonnie Arreaga Special Medications: Cefotetan 2 g IV x1 Specimen's removed: Distal jejunum Drains: Mahan Estimated Blood Loss (mL): 40 cc Description of Procedure: Description procedure: The patient was placed on operating table in supine position. General Anesthesia was induced. A timeout was completed verifying correct patient, procedure, site, position, social, and special equipment prior to beginning procedure. The abdomen was prepped and draped in usual sterile fashion. An incision was made in the natural skin line above the umbilicus at the location of the previous incision. The fascia was elevated and incised. The peritoneum was elevated and incised. Entry into the peritoneum was confirmed visually and no bowel was noted in the vicinity of the incision. Oliveira trocar was placed. The abdomen was insufflated with carbon dioxide to a pressure of 12-15 mmHg. Patient tolerated insufflation well. The laparoscope was then inserted and abdomen inspected. No injuries from initial trocar placement were noted. There was noted to be distended small bowel with adhesions to the abdominal wall. An additional 5 mm trocar was placed at the previous port site under direct visualization. Some of the loose adhesions to the abdominal wall was able to be removed with gentle traction. And there was noted to be an area of gangrenous small bowel. Case was converted to a laparotomy-10 blade scalpel was used along electrocautery to dissect down to the fascia fascia was elevated and incised. Large wound protector was placed. There is noted to be segment of gangrenous small bowel. Small bowel was ran found to be about 70 cm from the ileocecal valve and it was about 60 cm in length. This segment was resected with MORIS 75 stapler and the LigaSure impact was used to divide the mesentery. The 2 antimesenteric borders were brought together and 75 MORIS stapler was used. The enterotomy was closed using the TL 60. Crotch stitch of 3-0 silk was used. The mesenteric defect was closed using 3-0 Vicryl suture was irrigated with 3 L of saline and fluid was suctioned. 2 retention sutures were placed with 2 Ethilon. Wound was closed with 1 PDS suture. The skin was left open and packed with Kerlix soaked in Betadine. Patient was extubated. Mahan was placed in the end of the case Patient tolerated procedure well was taken to the postanesthesia care in stable condition. Complications none
--- NOTE | 2021-10-15 21:40 | RAD_ITS ---
HISTORY: SOB EXAMINATION/TECHNIQUE: XR Chest 1 View: COMPARISON: 10/13/2021 chest radiograph, 10/15/2021 small bowel series FINDINGS: LINES/DEVICES: Enteric tube is subdiaphragmatic within the stomach. LUNGS: No airspace consolidation. Unremarkable interstitium. No effusion. No pneumothorax. MEDIASTINUM: No cardiomegaly. Aortic atherosclersosis. MUSCULOSKELETAL: No acute osseous finding. 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 Sternotomy wires are midline and intact. ABDOMEN: Persistent diffuse upper abdominal bowel gas. RAD/Chest 1 View (Portable) IMPRESSION: No evidence of acute cardiopulmonary process. at 0408 Reported and signed by: Ismael Ramirez MD Electronically Signed: Ismael Ramirez MD at 4:07 EST ,
[2021-10-15] MEDS: Furosemide 40 MG/4 ML Vial IV (21:52)
[2021-10-16] VITALS (15 sets, daily range): BP systolic 103–125; BP diastolic 40–61; PULSE 67–88; RESP 16–22; TEMP 35.9–36.7; O2SAT 92–98; BMI 24.2
[2021-10-16] MEDS: Metoprolol Tartrate 5 MG/5 ML Vial IV ×4 (00:50→17:51)
[2021-10-16 05:02] LABS: Absolute Lymphocyte Count 0.37 X10^3/uL (0.83-4.51); Absolute Neutrophil Count 7.7 X10^3/uL (2.0-7.7); Basophil# 0.05 X10^3/uL; Basophil% 0.6 % (0-1); Eosinophil# 0.03 X10^3/uL; Eosinophils% 0.4 % (0-5); Hematocrit 31.8 % (40-54); Hemoglobin 10.3 g/dL (13.0-16.5); Lymphocyte # 0.37 X10^3/ul (0.83-4.51); Lymphocyte % 4.3 % (19-41); Mean Corp Hgb Conc 32.4 g/dL (32-36); Mean Corpuscular Hgb 29.5 pg (27.0-32.0); Mean Corpuscular Volume 91.1 fL (80-94); Mean Platelet Vol. 10.3 fl (6.2-12.0); Monocyte# 0.36 X10^3/uL; Monocyte% 4.2 % (0-10); NRBC Flagged by Analyzer 0 % (0-5); Neutrophil # 7.69 X10^3/uL (2.7-7.7); Neutrophil % 90.1 % (47-70); POSITIVE DIFFERENTIAL YES; POSITIVE MORPHOLOGY YES; Platelet Count 293 K/mm3 (150-450); RBC Distribution Width CV 16.6 % (11.6-14.6); RBC Distribution Width SD 55.5 fl (35.1-43.9); Red Blood Count 3.49 M/mm3 (4.6-6.2); White Blood Count 8.5 K/mm3 (4.4-11.0)
[2021-10-16 05:03] LABS: Differential Indicated SCAN CRITERIA MET
[2021-10-16 05:27] LABS: Anion Gap 8 (5-15); BUN 28 mg/dL (7-18); BUN/Creat Ratio 27.2 RATIO (10-20); Calcium,Total 7.3 mg/dL (8.5-10.1); Chloride 108 mmol/L (98-107); Creatinine, Serum 1.03 mg/dL (0.70-1.30); EST Glomerular Filtration Rate 73 mL/min (>60); Est Glom Filt Rate - Afr Amer 88 mL/min (>60); Estimated Creatinine Clearance 49.02 ml/min; Glucose 79 mg/dL (74-106); Potassium 3.8 mmol/L (3.5-5.1); Sodium Level 143 mmol/L (136-145)
[2021-10-16 06:34] LABS: Differential Comment SCANNED
--- NOTE | 2021-10-16 08:40 | PCM.PN.SRG ---
Subjective Subjective pt denies abd pain, no flatus, NG in place Objective Data Objective Data Vital Signs: Vital Signs Temp Pulse Resp BP Pulse Ox 98.0 F 67 18 108/48 L 94 10/16/21 04:32 10/16/21 07:00 10/16/21 04:32 10/16/21 05:20 10/16/21 04:32 Oxygen Flow Rate (L/min) 3 Oxygen Delivery Method Nasal Cannula Weight: 150 lb 2.157 oz Body Mass Index (BMI) 25.0 Intake & Output: Intake and Output for Last 24 Hours 10/14/21 10/15/21 10/16/21 23:59 23:59 23:59 Intake Total 2135.00 / 2165.00 4121.25 / 4121.25 70 / 70 Output Total 1000 / 1550 2385 / 2935 1200 / 1200 Balance 1135.00 / 615.00 1736.25 / 1186.25 -1130 / -1130 Medical Nutrition Assessment Dietitian: Malnutrition Criteria Met Start: 10/13/21 14:59 Freq: Status: Active Protocol: Document 10/13/21 14:59 AG (Rec: 10/13/21 14:59 [id number]) Nutrition Malnutrition Evidence of Malnutrition Exists Yes Malnutrition (moderate): Acute Illness/Injury Evidenced By Suboptimal Energy Intake ( Moderate),Weight Loss (Severe) ,Physical Changes (Mild) Clinical Problem Acute Disease or Injury Related Malnutrition Etiology moderate, acute malnutrition r /t inadequate energy intake d/ t recent hospitalizations, SBO , GI dysfunction Signs/Symptoms as evidenced by unintentional 22.9#/12.5% wt loss x 2 months ; 3.9#/2.4% wt loss over last 4 days; estimated PO intake meeting <75% of estimated energy needs >1 month; mild muscle wasting/fat loss in temporal, acromion, and clavicle region Status Active Problem Recommendation Dietitian Recommendations/Changes Recommend advance diet as tolerated to transitional diet ; ensure w/ medpass as diet advanced. If unable to advance PO diet over next 72 hours, recommend nutrition support Lab / Micro Data Result Diagrams: 10/16/21 04:25 10/16/21 04:25 Labs: Laboratory Results - last 24 hr 10/15/21 13:00: PT 15.5 H, INR 1.3, APTT 40.4 H 10/16/21 04:25: WBC 8.5, RBC 3.49 L, Hgb 10.3 L, Hct 31.8 L, MCV 91.1, MCH 29.5, MCHC 32.4, RDW Std Deviation 55.5 H, RDW Coeff of Denise 16.6 H, Plt Count 293, MPV 10.3, Immature Gran % (Auto) 0.400, Neut % (Auto) 90.1 H, Lymph % (Auto) 4.3 L, Potter % (Auto) 4.2, Eos % (Auto) 0.4, Baso % (Auto) 0.6, Absolute Neuts (auto) 7.7, Absolute Lymphs (auto) 0.37 L, Nucleated RBC % 0, Differential Comment SCANNED 10/16/21 04:25: Sodium 143, Potassium 3.8, Chloride 108 H, Carbon Dioxide 27.0, Anion Gap 8, BUN 28 H, Creatinine 1.03, Estim Creat Clear Calc 49.02, Est GFR (MDRD) Af Amer 88, Est GFR (MDRD) Non-Af 73, BUN/Creatinine Ratio 27.2 H, Glucose 79, Calcium 7.3 L Radiography Diagnostic Testing: Radiology Impression KUB X-Ray 10/15/21 06:51 IMPRESSION: Findings suggestive of a small bowel obstruction. Small amount of gas is seen in the colon. Electronically Signed: Porter Singh MD at 12:41 EST , Small Bowel X-Ray 10/15/21 08:48 IMPRESSION: Findings in keeping with a small bowel obstruction the definite transition point cannot be determined at this point. Electronically Signed: Porter Singh MD at 13:40 EST , Chest X-Ray 10/15/21 21:40 IMPRESSION: No evidence of acute cardiopulmonary process. at 0408 Reported and signed by: Ismael Ramirez MD Electronically Signed: Ismael Ramirez MD at 4:07 EST , Physical Exam Narrative Ng in place Resp normal respiratory effort Cardio regular rate GI GI Narrative: Abdomen: Soft, nondistended, mild tender near incision's dressed with w-d dressing/retention sutures in place x 2, no peritoneal signs Assessment & Plan Assessment/Plan (1) S/P small bowel resection: (2) History of small bowel obstruction: PLAN: continue NPO/NG/IVF until +BF zosyn IV due to gangrenous small bowel. Pt may benefit from TPN as he has had multiple procedures over a short period of time. d/w Dr. Peña
[2021-10-16] MEDS: Menthol/Lanolin/Calamine/Znox 113 GM Tube 1 APPLIC TOPICAL ×2 (10:16→20:58)
[2021-10-16] MEDS: Enoxaparin 40 MG/0.4 ML Syringe SC (10:16)
--- NOTE | 2021-10-16 10:20 | WOUNDNOTE ---
wound photo: abdomen
--- NOTE | 2021-10-16 10:21 | WOUNDNOTE ---
wound photo: left heel
--- NOTE | 2021-10-16 13:12 | PCM.PN.HOSP ---
Subjective Subjective Patient ended up going to the OR last evening for small bowel resection due to necrotic bowel. Obstruction shown on the small bowel series yesterday. 60 cm of jejunum were removed. The patient states that his pain is better than it was yesterday despite having a postoperative abdomen at this point. NG tube output was 450 in the last 24 hours Objective Data Objective Data Vital Signs: Vital Signs Temp Pulse Resp BP Pulse Ox 97.3 F L 82 22 H 113/53 L 95 10/16/21 09:25 10/16/21 13:08 10/16/21 09:25 10/16/21 13:08 10/16/21 09:25 Oxygen Flow Rate (L/min) 3 Oxygen Delivery Method Nasal Cannula Weight: 68.1 kg Body Mass Index (BMI) 25.0 Intake & Output: Intake and Output for Last 24 Hours 10/14/21 10/15/21 10/16/21 23:59 23:59 23:59 Intake Total 2135.00 / 2165.00 4121.25 / 4121.25 260 / 260 Output Total 1000 / 1550 2385 / 2935 1500 / 1500 Balance 1135.00 / 615.00 1736.25 / 1186.25 -1240 / -1240 Medical Nutrition Assessment Dietitian: Malnutrition Criteria Met Start: 10/13/21 14:59 Freq: Status: Active Protocol: Document 10/13/21 14:59 (Rec: 10/13/21 14:59 [id number]) Nutrition Malnutrition Evidence of Malnutrition Exists Yes Malnutrition (moderate): Acute Illness/Injury Evidenced By Suboptimal Energy Intake ( Moderate),Weight Loss (Severe) ,Physical Changes (Mild) Clinical Problem Acute Disease or Injury Related Malnutrition Etiology moderate, acute malnutrition r /t inadequate energy intake d/ t recent hospitalizations, SBO , GI dysfunction Signs/Symptoms as evidenced by unintentional 22.9#/12.5% wt loss x 2 months ; 3.9#/2.4% wt loss over last 4 days; estimated PO intake meeting <75% of estimated energy needs >1 month; mild muscle wasting/fat loss in temporal, acromion, and clavicle region Status Active Problem Recommendation Dietitian Recommendations/Changes Recommend advance diet as tolerated to transitional diet ; ensure w/ medpass as diet advanced. If unable to advance PO diet over next 72 hours, recommend nutrition support Lab / Micro Data Result Diagrams: 10/16/21 04:25 10/16/21 04:25 Labs: Laboratory Results - last 24 hr 10/15/21 13:00: PT 15.5 H, INR 1.3, APTT 40.4 H 10/16/21 04:25: WBC 8.5, RBC 3.49 L, Hgb 10.3 L, Hct 31.8 L, MCV 91.1, MCH 29.5, MCHC 32.4, RDW Std Deviation 55.5 H, RDW Coeff of Denise 16.6 H, Plt Count 293, MPV 10.3, Immature Gran % (Auto) 0.400, Neut % (Auto) 90.1 H, Lymph % (Auto) 4.3 L, [place] % (Auto) 4.2, Eos % (Auto) 0.4, Baso % (Auto) 0.6, Absolute Neuts (auto) 7.7, Absolute Lymphs (auto) 0.37 L, Nucleated RBC % 0, Differential Comment SCANNED 10/16/21 04:25: Sodium 143, Potassium 3.8, Chloride 108 H, Carbon Dioxide 27.0, Anion Gap 8, BUN 28 H, Creatinine 1.03, Estim Creat Clear Calc 49.02, Est GFR (MDRD) Af Amer 88, Est GFR (MDRD) Non-Af 73, BUN/Creatinine Ratio 27.2 H, Glucose 79, Calcium 7.3 L Radiography Diagnostic Testing: Radiology Impression Small Bowel X-Ray 10/15/21 08:48 IMPRESSION: Findings in keeping with a small bowel obstruction the definite transition point cannot be determined at this point. Electronically Signed: Porter Singh MD at 13:40 EST , Chest X-Ray 10/15/21 21:40 IMPRESSION: No evidence of acute cardiopulmonary process. at 0408 Reported and signed by: Ismael Ramirez MD Electronically Signed: Ismael Ramirez MD at 4:07 EST , Physical Exam Const alert, oriented x3, no apparent distress and average body habitus Constitutional Narrative: Patient is an elderly white male lying in bed, currently appears comfortable, nontoxic, very pleasant General Appearance: cooperative Exam Limitations: no limitations HEENT normocephalic, head/scalp atraumatic and moist oral mucous membranes; Negative for hearing grossly normal bilaterally Head and Scalp: normocephalic Resp normal respiratory effort, no retractions, no use of accessory muscles and clear to auscultation bilaterally Resp Narrative: Diminished but clear, breath are somewhat shallow at times secondary to postoperative abdomen Auscultation: Negative for crackles, rales, rhonchi or wheezes Cardio regular rate, regular rhythm, S1 normal heart sound, S2 normal heart sound, no murmurs, no rub, no gallops, no clicks and no JVD GI GI Narrative: Absent bowel sounds, midline incision with retention sutures in place, clean dry and intact without any signs of infection or erythema, tender at the surgical site but no significant distention at this time Extremity no clubbing, cyanosis or edema Extremity Narrative: 1+ bilateral pedal pulses Neuro oriented x3, moves all extremities and no focal motor deficits Neuro Narrative: Generalized weakness Sensorium / Orientation: awake and alert Speech: speech normal Assessment & Plan Assessment/Plan (1) Adynamic ileus: (2) History of small bowel obstruction: (3) Acute hypokalemia: (4) Leukocytosis: PLAN: Distraction secondary to gangrenous small bowel-jejunum -OR yesterday for small bowel resection with anastomosis -60 cm of jejunum were removed and patient has 70 cm of small bowel remaining in the ileum -PICC to be placed today with TPN initiation as patient has been n.p.o. quite frequently lately with his 2 small bowel obstructions and ileus -Continue n.p.o. but okay for ice chips -We will continue IV fluids at 50 cc/h -Morphine for pain -Enteric panel and C. difficile are negative -Dr. Denney following Acute hypoxic respiratory failure -Patient is on 3 L -Suspect related to postoperative issues and atelectasis plus volume overload -Patient was given Lasix overnight however my Lasix dose was held by nursing yesterday -Continue incentive spirometry -As needed aerosols -We will monitor on a daily basis for diuresis needs Acute hypokalemia -Resolved -Repeat in a.m. Leukocytosis -Resolved 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 09/09/2021 -Continue PT/OT -Surgical site appears benign -Probable discharge back to the TCU when ileus has resolved PAF -Hold oral anticoagulation with Eliquis while n.p.o. -Will restart when bowel function returns and okay with general surgery -Currently in rate controlled atrial fibrillation -Hold oral metoprolol -Continue metoprolol IV at 5 mg every 6 hours CKD stage IIIa -Current serum creatinine is 0.7 -Monitor CAD status post CABG/hypertension/hyperlipidemia/PAD -Hold Home oral medications given ileus -IV metoprolol has been ordered -As needed hydralazine for systolic pressure greater than 160 is available -Restart home medications once obstruction has resolved GERD -Continue IV PPI -Restart oral once able Macrocytic anemia -Hemoglobin at baseline appears to be between 8 and 10 -Hemoglobin is closer to his baseline today at 10.3 -Is on oral iron at baseline--> currently on hold with bowel obstruction At risk for malnutrition -P.o. intake has been poor as he is n.p.o. secondary to ileus DVT prophylaxis -Prophylactic subcu heparin for now CODE STATUS -DNR CCA with no intubation as per discussion upon admission emergency department Charges/Coding Visit Charges Inpatient E&M: 34255 Subs Hosp L2
[2021-10-16 13:58] LABS: MG Sendout 1.4 mg/dL (1.6-2.3)
--- NOTE | 2021-10-16 14:38 | CASEMGMT ---
Pt screened with [facility] Palliative Care Screening Tool, pt met criteria. No order received at this time.
--- NOTE | 2021-10-16 15:12 | NURSING ---
student charting reviewed by ANÍBAL Peraza, instructor
--- NOTE | 2021-10-16 15:14 | CASEMGMT ---
Social Work Note Pt started TPN. MARGOTH asked Yuki with TCU if pt can return with TPN. TCU can take pt with TPN, just not on Fridays. SW to continue to follow. Shayy Bowman ASSORTER LAUNDRY, MATERIAL ATTENDANT
[2021-10-16] MEDS: Lactated Ringers 1,000 ML 50 ML IV (15:28)
[2021-10-16] MEDS: Fat Emulsions 20% 250 ML IV (16:23)
[2021-10-16 17:51] LABS: Bedside Glucose 129 mg/dL (70-110)
[2021-10-17] VITALS (19 sets, daily range): BP systolic 96–112; BP diastolic 51–71; PULSE 57–112; RESP 16–18; TEMP 36.3–36.9; O2SAT 92–98
[2021-10-17] MEDS: Metoprolol Tartrate 5 MG/5 ML Vial IV ×4 (04:56→23:48)
[2021-10-17 05:53] LABS: Absolute Lymphocyte Count 1.06 X10^3/uL (0.83-4.51); Absolute Neutrophil Count 10.9 X10^3/uL (2.0-7.7); Basophil# 0.03 X10^3/uL; Basophil% 0.2 % (0-1); Eosinophil# 0.07 X10^3/uL; Eosinophils% 0.6 % (0-5); Hematocrit 30.2 % (40-54); Hemoglobin 9.5 g/dL (13.0-16.5); Lymphocyte # 1.06 X10^3/ul (0.83-4.51); Lymphocyte % 8.4 % (19-41); Mean Corp Hgb Conc 31.5 g/dL (32-36); Mean Corpuscular Hgb 29.6 pg (27.0-32.0); Mean Corpuscular Volume 94.1 fL (80-94); Mean Platelet Vol. 10.1 fl (6.2-12.0); Monocyte# 0.52 X10^3/uL; Monocyte% 4.1 % (0-10); NRBC Flagged by Analyzer 0 % (0-5); Neutrophil # 10.91 X10^3/uL (2.7-7.7); Neutrophil % 86.1 % (47-70); Platelet Count 253 K/mm3 (150-450); RBC Distribution Width CV 16.7 % (11.6-14.6); RBC Distribution Width SD 57.3 fl (35.1-43.9); Red Blood Count 3.21 M/mm3 (4.6-6.2); White Blood Count 12.7 K/mm3 (4.4-11.0)
[2021-10-17 06:05] LABS: International Normalized Ratio 1.2; Prothrombin Time (Protime)PT. 14.9 SECONDS (11.7-14.9)
[2021-10-17 06:16] LABS: Bedside Glucose 196 mg/dL (70-110)
[2021-10-17 06:21] LABS: Anion Gap 6 (5-15); BUN 41 mg/dL (7-18); BUN/Creat Ratio 34.5 RATIO (10-20); Calcium,Total 7.5 mg/dL (8.5-10.1); Chloride 106 mmol/L (98-107); Creatinine, Serum 1.19 mg/dL (0.70-1.30); EST Glomerular Filtration Rate 62 mL/min (>60); Est Glom Filt Rate - Afr Amer 75 mL/min (>60); Estimated Creatinine Clearance 42.43 ml/min; Glucose 187 mg/dL (74-106); Potassium 4.1 mmol/L (3.5-5.1); Sodium Level 138 mmol/L (136-145); Triglycerides 91 mg/dL
[2021-10-17 06:24] LABS: Bilirubin, Direct 0.24 mg/dL (0.00-0.30); Phosphorus 2.5 mg/dL (2.5-4.9)
--- NOTE | 2021-10-17 08:12 | NURSING ---
This RN flushing patients NG tube with 30 ML Sterile Saline, pt tolerated well.
--- NOTE | 2021-10-17 08:57 | PCM.PN.SRG ---
Subjective Subjective Patient denies any abdominal pain also denies any flatus. NG in place a bit of drainage but patient is also taking sips and chips. Patient did get started on TPN. Objective Data Objective Data Vital Signs: Vital Signs Temp Pulse Resp BP Pulse Ox 97.5 F L 102 H 16 99/71 96 10/17/21 08:34 10/17/21 08:40 10/17/21 08:34 10/17/21 08:34 10/17/21 08:34 Oxygen Flow Rate (L/min) 3 Oxygen Delivery Method Room Air Weight: 150 lb 2.157 oz Body Mass Index (BMI) 25.0 Intake & Output: Intake and Output for Last 24 Hours 10/15/21 10/16/21 10/17/21 23:59 23:59 23:59 Intake Total 4121.25 / 4121.25 898.33 / 1048.33 1434.17 / 1434.17 Output Total 2385 / 2935 2150 / 2250 275 / 275 Balance 1736.25 / 1186.25 -1251.67 / -1201.67 1159.17 / 1159.17 Medical Nutrition Assessment Dietitian: Malnutrition Criteria Met Start: 10/13/21 14:59 Freq: Status: Active Protocol: Document 10/16/21 15:52 (Rec: 10/16/21 15:52 [id number]) Nutrition Malnutrition Evidence of Malnutrition Exists Yes Malnutrition (moderate): Acute Illness/Injury Evidenced By Suboptimal Energy Intake ( Moderate),Weight Loss (Severe) ,Physical Changes (Mild) Clinical Problem Acute Disease or Injury Related Malnutrition Etiology moderate, acute malnutrition r /t inadequate energy intake d/ t recent hospitalizations, SBO , GI dysfunction Signs/Symptoms as evidenced by unintentional 22.9#/12.5% wt loss x 2 months ; 3.9#/2.4% wt loss over last 4 days; estimated PO intake meeting <75% of estimated energy needs >1 month; mild muscle wasting/fat loss in temporal, acromion, and clavicle region Status Active Problem Recommendation Dietitian Recommendations/Changes 1) For day #1 TPN- 2L 4.25% AA /10% dextrose at 84mL/hour w/ 250mL lipid solution to provide 1520 calories, 84 g protein, 200 g dextrose. No additives today to TPN per policy. 2) Recommend advance diet as tolerated to transitional diet ; ensure w/ medpass as diet advanced. 3) Daily wts. Close monitoring of electrolytes. Lab / Micro Data Result Diagrams: 10/17/21 05:40 10/17/21 05:40 Labs: Laboratory Results - last 24 hr 10/14/21 05:45: Magnesium 1.4 L 10/16/21 17:46: POC Glucose 129 H 10/17/21 05:09: POC Glucose 196 H 10/17/21 05:40: WBC 12.7 H, RBC 3.21 L, Hgb 9.5 L, Hct 30.2 L, MCV 94.1 H, MCH 29.6, MCHC 31.5 L, RDW Std Deviation 57.3 H, RDW Coeff of Denise 16.7 H, Plt Count 253, MPV 10.1, Immature Gran % (Auto) 0.600, Neut % (Auto) 86.1 H, Lymph % (Auto) 8.4 L, [place] % (Auto) 4.1, Eos % (Auto) 0.6, Baso % (Auto) 0.2, Absolute Neuts (auto) 10.9 H, Absolute Lymphs (auto) 1.06, Nucleated RBC % 0 10/17/21 05:40: Sodium 138, Potassium 4.1, Chloride 106, Carbon Dioxide 26.0, Anion Gap 6, BUN 41 H, Creatinine 1.19, Estim Creat Clear Calc 42.43, Est GFR (MDRD) Af Amer 75, Est GFR (MDRD) Non-Af 62, BUN/Creatinine Ratio 34.5 H, Glucose 187 H, Calcium 7.5 L, Magnesium 2.0, Triglycerides 91 10/17/21 05:40: PT 14.9, INR 1.2 10/17/21 05:40: Phosphorus 2.5, Total Bilirubin 0.40, Direct Bilirubin 0.24, Indirect Bilirubin 0.20 Physical Exam Narrative Ng in place Resp normal respiratory effort Cardio regular rate GI GI Narrative: Abdomen: Soft, nondistended, mild tender near incision's dressed with w-d dressing/retention sutures in place x 2, no peritoneal signs Assessment & Plan Assessment/Plan (1) S/P small bowel resection: (2) History of small bowel obstruction: PLAN: continue NPO/NG/TPN until +BF as albumin on admission was 1.8?Severe malnutrition Continue zosyn IV-- current white blood count 13.7 we will continue to monitor. Out of bed to chair, Yossi, Protonix OVI Denney M.D. Pager: [phone] [facility] [address] [place] [address], [facility], [address] [place] [address] Office: [phone]
[2021-10-17] MEDS: Enoxaparin 40 MG/0.4 ML Syringe SC (09:50)
[2021-10-17] MEDS: Menthol/Lanolin/Calamine/Znox 113 GM Tube 1 APPLIC TOPICAL ×2 (09:56→20:29)
[2021-10-17 11:00] LABS: Bedside Glucose 174 mg/dL (70-110)
--- NOTE | 2021-10-17 11:13 | WOUNDNOTE ---
Pt up working with therapy at this time. abdominal dressing is D&I. nursing had changed dressing at 1000 today. left dressing in place. film processing shift supervisor RN had also changed dressing around 0200. will monitor.
--- NOTE | 2021-10-17 13:47 | CHAPLAIN ---
Type of Pastoral Visit ___ Initial Visit _x__ Follow-up Visit ___ On-call Visit ___ General Patient Visit ___ Spiritual Assessment ___ Family Conference ___ Bereavement ___ Rapid Response ___ Code Blue ___ Other (describe below) Pastoral Care Referral From _x__ Patient ___ Family ___ Nurse ___ Physician ___ Law Instructor ___ Insurance Loss Assessor ___ Other (describe below) Sacrament/Intervention _x__ Active listening ___ Anointing ___ Yarsanism ___ Bereavement ___ Communion ___ Stacey exploration ___ ___ Life review _x__ Prayer ___ Reconciliation ___ Sacrament of Sick _x_ Supportive presence ___ Wedding ___ Other (describe below) Pastoral Comments review by patient of his recent treatments and surgeries; pt was seen before in TCU; pt states that he never thought I would be in the hospital this long and I just want to get better and go home again; pt welcomes presence and prayer for support
--- NOTE | 2021-10-17 16:10 | PCM.PN.HOSP ---
Subjective Subjective Still no flatus or bowel movement. Patient states his abdominal pain is slightly more than yesterday but no where near where it was previously. He has no significant complaints at this time. Objective Data Objective Data Vital Signs: Vital Signs Temp Pulse Resp BP Pulse Ox 98.1 F 86 16 112/52 L 95 10/17/21 14:20 10/17/21 14:20 10/17/21 14:20 10/17/21 14:20 10/17/21 14:20 Oxygen Flow Rate (L/min) 3 Oxygen Delivery Method Room Air Weight: 68.1 kg Body Mass Index (BMI) 25.0 Intake & Output: Intake and Output for Last 24 Hours 10/15/21 10/16/21 10/17/21 23:59 23:59 23:59 Intake Total 4121.25 / 4121.25 898.33 / 1048.33 3709.80 / 3709.80 Output Total 2385 / 2935 2150 / 2250 1240 / 1240 Balance 1736.25 / 1186.25 -1251.67 / -1201.67 2469.80 / 2469.80 Medical Nutrition Assessment Dietitian: Malnutrition Criteria Met Start: 10/13/21 14:59 Freq: Status: Active Protocol: Document 10/17/21 11:53 (Rec: 10/17/21 11:53 [id number]) Nutrition Malnutrition Evidence of Malnutrition Exists Yes Malnutrition (moderate): Acute Illness/Injury Evidenced By Suboptimal Energy Intake ( Moderate),Weight Loss (Severe) ,Physical Changes (Mild) Clinical Problem Acute Disease or Injury Related Malnutrition Etiology moderate, acute malnutrition r /t inadequate energy intake d/ t recent hospitalizations, SBO , GI dysfunction Signs/Symptoms as evidenced by unintentional 22.9#/12.5% wt loss x 2 months ; 3.9#/2.4% wt loss over last 4 days; estimated PO intake meeting <75% of estimated energy needs >1 month; mild muscle wasting/fat loss in temporal, acromion, and clavicle region Status Active Problem Recommendation Dietitian Recommendations/Changes 1) For day #2 TPN- 2L 4.25% AA /10% dextrose at 84mL/hour to provide 1020 calories, 84 g protein, 200 g dextrose. No additives today to TPN per policy. 2) Recommend advance diet as tolerated to transitional diet ; ensure w/ medpass as diet advanced. 3) Daily wts. Close monitoring of electrolytes. Lab / Micro Data Result Diagrams: 10/17/21 05:40 10/17/21 05:40 Labs: Laboratory Results - last 24 hr 10/16/21 17:46: POC Glucose 129 H 10/17/21 05:09: POC Glucose 196 H 10/17/21 05:40: WBC 12.7 H, RBC 3.21 L, Hgb 9.5 L, Hct 30.2 L, MCV 94.1 H, MCH 29.6, MCHC 31.5 L, RDW Std Deviation 57.3 H, RDW Coeff of Denise 16.7 H, Plt Count 253, MPV 10.1, Immature Gran % (Auto) 0.600, Neut % (Auto) 86.1 H, Lymph % (Auto) 8.4 L, [place] % (Auto) 4.1, Eos % (Auto) 0.6, Baso % (Auto) 0.2, Absolute Neuts (auto) 10.9 H, Absolute Lymphs (auto) 1.06, Nucleated RBC % 0 10/17/21 05:40: Sodium 138, Potassium 4.1, Chloride 106, Carbon Dioxide 26.0, Anion Gap 6, BUN 41 H, Creatinine 1.19, Estim Creat Clear Calc 42.43, Est GFR (MDRD) Af Amer 75, Est GFR (MDRD) Non-Af 62, BUN/Creatinine Ratio 34.5 H, Glucose 187 H, Calcium 7.5 L, Magnesium 2.0, Triglycerides 91 10/17/21 05:40: PT 14.9, INR 1.2 10/17/21 05:40: Phosphorus 2.5, Total Bilirubin 0.40, Direct Bilirubin 0.24, Indirect Bilirubin 0.20 10/17/21 10:55: POC Glucose 174 H Physical Exam Const alert, oriented x3, no apparent distress and average body habitus Constitutional Narrative: Patient is an elderly white male sitting up in a chair at the bedside, currently appears comfortable, nontoxic, very pleasant, watching television General Appearance: cooperative Exam Limitations: no limitations HEENT normocephalic, head/scalp atraumatic and moist oral mucous membranes; Negative for hearing grossly normal bilaterally Head and Scalp: normocephalic Resp normal respiratory effort, no retractions, no use of accessory muscles and clear to auscultation bilaterally Resp Narrative: Diminished but clear Auscultation: Negative for crackles, rales, rhonchi or wheezes Cardio regular rate, regular rhythm, S1 normal heart sound, S2 normal heart sound, no murmurs, no rub, no gallops, no clicks and no JVD GI GI Narrative: Hypoactive bowel sounds, midline incision with retention sutures in place, clean dry and intact without any signs of infection or erythema, tender at the surgical site but no significant distention at this time Extremity no clubbing, cyanosis or edema Extremity Narrative: 1+ bilateral pedal pulses, trace bilateral lower extremity edema, no cyanosis or clubbing Neuro oriented x3, moves all extremities and no focal motor deficits Neuro Narrative: Generalized weakness Sensorium / Orientation: awake and alert Speech: speech normal Assessment & Plan Assessment/Plan (1) Adynamic ileus: (2) History of small bowel obstruction: (3) Acute hypokalemia: (4) Leukocytosis: PLAN: Distraction secondary to gangrenous small bowel-jejunum -Postop day 2 small bowel resection with anastomosis -60 cm of jejunum were removed and patient has 70 cm of small bowel remaining in the ileum -Continue TPN -Continue n.p.o. but okay for ice chips -Discontinue IV fluids as patient currently is getting 2 L daily with TPN -Morphine for pain -Enteric panel and C. difficile are negative -Continue Zosyn--> suspect 4 days of treatment after source control -Dr. Denney following Acute hypoxic respiratory failure -Patient on 3 L this morning but trialed off at bedside and patient was maintaining oxygen saturations while awake -Suspect related to postoperative issues and atelectasis plus volume overload -No further diuresis needed at this time resolved -Continue incentive spirometry -As needed aerosols -We will monitor on a daily basis for diuresis needs Acute hypokalemia -Resolved -Repeat in a.m. 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 09/09/2021 -Continue PT/OT -Surgical site appears benign -Probable discharge back to the TCU when ileus has resolved PAF -Hold oral anticoagulation with Eliquis while n.p.o. -Will restart when bowel function returns and okay with general surgery -Currently in rate controlled atrial fibrillation -Hold oral metoprolol -Continue metoprolol IV at 5 mg every 6 hours CKD stage IIIa -Current serum creatinine is 0.7 -Monitor CAD status post CABG/hypertension/hyperlipidemia/PAD -Hold Home oral medications given ileus -IV metoprolol has been ordered -As needed hydralazine for systolic pressure greater than 160 is available -Restart home medications once obstruction has resolved GERD -Continue IV PPI -Restart oral once able Macrocytic anemia -Hemoglobin at baseline appears to be between 8 and 10 -Hemoglobin is closer to his baseline today at 10.3 -Is on oral iron at baseline--> currently on hold with bowel obstruction Severe malnutrition -P.o. intake has been poor as he is n.p.o. secondary to ileus -Continue TPN until p.o. intake is an option DVT prophylaxis -Prophylactic subcu heparin for now -SCDs while in bed CODE STATUS -DNR CCA with no intubation as per discussion upon admission emergency department Charges/Coding Visit Charges Inpatient E&M: 69748 Subs Hosp L2
[2021-10-17 18:01] LABS: Bedside Glucose 143 mg/dL (70-110)
[2021-10-18] VITALS (14 sets, daily range): BP systolic 116–126; BP diastolic 56–90; PULSE 83–100; RESP 16–18; TEMP 36.3–37.1; O2SAT 91–96
[2021-10-18] LABS: Bedside Glucose 147 mg/dL (70-110)
[2021-10-18] MEDS: Metoprolol Tartrate 5 MG/5 ML Vial IV ×4 (05:23→23:56)
[2021-10-18 06:15] LABS: Bedside Glucose 125 mg/dL (70-110)
[2021-10-18 06:37] LABS: Absolute Lymphocyte Count 0.93 X10^3/uL (0.83-4.51); Absolute Neutrophil Count 5.5 X10^3/uL (2.0-7.7); Basophil# 0.01 X10^3/uL; Basophil% 0.1 % (0-1); Eosinophil# 0.16 X10^3/uL; Eosinophils% 2.3 % (0-5); Hematocrit 25.9 % (40-54); Hemoglobin 8.4 g/dL (13.0-16.5); Lymphocyte # 0.93 X10^3/ul (0.83-4.51); Lymphocyte % 13.3 % (19-41); Mean Corp Hgb Conc 32.4 g/dL (32-36); Mean Corpuscular Hgb 29.1 pg (27.0-32.0); Mean Corpuscular Volume 89.6 fL (80-94); Mean Platelet Vol. 10.1 fl (6.2-12.0); Monocyte% 5.7 % (0-10); NRBC Flagged by Analyzer 0 % (0-5); Neutrophil # 5.47 X10^3/uL (2.7-7.7); Platelet Count 198 K/mm3 (150-450); RBC Distribution Width CV 16.1 % (11.6-14.6); Red Blood Count 2.89 M/mm3 (4.6-6.2)
[2021-10-18 07:08] LABS: Anion Gap 6 (5-15); BUN 34 mg/dL (7-18); BUN/Creat Ratio 50.1 RATIO (10-20); Calcium,Total 7.4 mg/dL (8.5-10.1); Chloride 107 mmol/L (98-107); Creatinine, Serum 0.68 mg/dL (0.70-1.30); EST Glomerular Filtration Rate 118 mL/min (>60); Est Glom Filt Rate - Afr Amer 143 mL/min (>60); Estimated Creatinine Clearance 50.49 ml/min; Glucose 115 mg/dL (74-106); Magnesium 1.9 mg/dL (1.6-2.6); Potassium 3.2 mmol/L (3.5-5.1); Sodium Level 141 mmol/L (136-145)
[2021-10-18 07:09] LABS: Phosphorus 2.4 mg/dL (2.5-4.9)
--- NOTE | 2021-10-18 07:24 | PN.SURG_ITS ---
Subjective Subjective NG in place drained about 1200 overnight patient is taking ice chips and sips. Patient states he is having flatus but does state that he feels gas in his belly as well, denies bowel movements Objective Data Objective Data Vital Signs: Vital Signs Temp Pulse Resp BP Pulse Ox 98.8 F 84 16 126/56 H 96 10/18/21 02:00 10/18/21 05:23 10/18/21 02:00 10/18/21 02:00 10/18/21 02:00 Oxygen Flow Rate (L/min) 3 Oxygen Delivery Method Room Air Weight: 147 lb 14.883 oz Body Mass Index (BMI) 25.0 Intake & Output: Intake and Output for Last 24 Hours 10/16/21 10/17/21 10/18/21 23:59 23:59 23:59 Intake Total 898.33 / 1048.33 4099.80 / 4099.80 80 / 80 Output Total 2150 / 2250 2065 / 2065 300 / 300 Balance -1251.67 / -1201.67 2034.80 / 2034.80 -220 / -220 Medical Nutrition Assessment Dietitian: Malnutrition Criteria Met Start: 10/13/21 14:59 Freq: Status: Active Protocol: Document 10/17/21 11:53 (Rec: 10/17/21 11:53 [id number]) Nutrition Malnutrition Evidence of Malnutrition Exists Yes Malnutrition (moderate): Acute Illness/Injury Evidenced By Suboptimal Energy Intake ( Moderate),Weight Loss (Severe) ,Physical Changes (Mild) Clinical Problem Acute Disease or Injury Related Malnutrition Etiology moderate, acute malnutrition r /t inadequate energy intake d/ t recent hospitalizations, SBO , GI dysfunction Signs/Symptoms as evidenced by unintentional 22.9#/12.5% wt loss x 2 months ; 3.9#/2.4% wt loss over last 4 days; estimated PO intake meeting <75% of estimated energy needs >1 month; mild muscle wasting/fat loss in temporal, acromion, and clavicle region Status Active Problem Recommendation Dietitian Recommendations/Changes 1) For day #2 TPN- 2L 4.25% AA /10% dextrose at 84mL/hour to provide 1020 calories, 84 g protein, 200 g dextrose. No additives today to TPN per policy. 2) Recommend advance diet as tolerated to transitional diet ; ensure w/ medpass as diet advanced. 3) Daily wts. Close monitoring of electrolytes. Lab / Micro Data Result Diagrams: 10/18/21 05:30 10/18/21 05:30 Labs: Laboratory Results - last 24 hr 10/17/21 10:55: POC Glucose 174 H 10/17/21 17:52: POC Glucose 143 H 10/17/21 23:54: POC Glucose 147 H 10/18/21 05:27: POC Glucose 125 H 10/18/21 05:30: WBC 7.0, RBC 2.89 L, Hgb 8.4 L, Hct 25.9 L, MCV 89.6, MCH 29.1, MCHC 32.4, RDW Std Deviation 53.0 H, RDW Coeff of Denise 16.1 H, Plt Count 198, MPV 10.1, Immature Gran % (Auto) 0.600, Neut % (Auto) 78.0 H, Lymph % (Auto) 13.3 L, [place] % (Auto) 5.7, Eos % (Auto) 2.3, Baso % (Auto) 0.1, Absolute Neuts (auto) 5.5, Absolute Lymphs (auto) 0.93, Nucleated RBC % 0 10/18/21 05:30: Sodium 141, Potassium 3.2 L, Chloride 107, Carbon Dioxide 28.0, Anion Gap 6, BUN 34 H, Creatinine 0.68 L, Estim Creat Clear Calc 50.49, Est GFR (MDRD) Af Amer 143, Est GFR (MDRD) Non-Af 118, BUN/Creatinine Ratio 50.1 H, Glucose 115 H, Calcium 7.4 L, Magnesium 1.9 10/18/21 05:30: Phosphorus 2.4 L Physical Exam Narrative Ng in place Resp normal respiratory effort Cardio regular rate GI GI Narrative: Abdomen: Soft, nondistended, mild tender near incision's dressed with w-d dressing/retention sutures in place x 2, no peritoneal signs Assessment & Plan Assessment/Plan (1) S/P small bowel resection: (2) History of small bowel obstruction: PLAN: continue NPO/NG/TPN until bowel movement. Continue zosyn IV--improved to 7 from 13.7 Out of bed to chair, Lovenox, Protonix IV Justyna Denney M.D. Pager: [phone] [facility] [address] [place] [address], [facility], [address] [place] [address] Office: [phone]
[2021-10-18] MEDS: Menthol/Lanolin/Calamine/Znox 113 GM Tube 1 APPLIC TOPICAL ×2 (08:54→21:05)
[2021-10-18] MEDS: Enoxaparin 40 MG/0.4 ML Syringe SC (08:54)
[2021-10-18] MEDS: 0.9% Saline Lock 10 ML Syringe IV (09:03)
[2021-10-18 12:46] LABS: Bedside Glucose 125 mg/dL (70-110)
[2021-10-18] MEDS: Fat Emulsions 20% 250 ML IV (15:51)
--- NOTE | 2021-10-18 16:20 | PCM.PN.HOSP ---
Subjective Subjective Patient reports that he did have some flatus overnight but no bowel movement yet. Doing okay with ice chips but no p.o. diet until he has a bowel movement per discussion with general surgery. Patient indicates he is having some pain but overall feeling much better. Objective Data Objective Data Vital Signs: Vital Signs Temp Pulse Resp BP Pulse Ox 97.3 F L 93 16 122/65 H 91 10/18/21 11:50 10/18/21 12:27 10/18/21 11:50 10/18/21 12:27 10/18/21 11:50 Oxygen Flow Rate (L/min) 3 Oxygen Delivery Method Room Air Weight: 67.1 kg Body Mass Index (BMI) 25.0 Intake & Output: Intake and Output for Last 24 Hours 10/16/21 10/17/21 10/18/21 23:59 23:59 23:59 Intake Total 898.33 / 1048.33 4099.80 / 4099.80 2570.70 / 2570.70 Output Total 2150 / 2250 2065 / 2065 900 / 900 Balance -1251.67 / -1201.67 2034.80 / 2034.80 1670.70 / 1670.70 Medical Nutrition Assessment Dietitian: Malnutrition Criteria Met Start: 10/13/21 14:59 Freq: Status: Active Protocol: Document 10/18/21 12:06 (Rec: 10/18/21 12:06 [id number]) Nutrition Malnutrition Evidence of Malnutrition Exists Yes Malnutrition (severe): Acute Illness/Injury Evidenced By Suboptimal Energy Intake ( Severe),Weight Loss (Severe), Physical Changes (Mild) Clinical Problem Acute Disease or Injury Related Malnutrition Etiology severe, acute malnutrition r/t inadequate energy intake d/t recent hospitalizations, SBO, GI dysfunction Signs/Symptoms as evidenced by unintentional 22.9#/12.5% wt loss x 2 months ; 5.5kg/8% wt loss since 10/13; estimated PO intake meeting < 75% of estimated energy needs >1 month; mild muscle wasting/ fat loss in temporal, acromion , and clavicle region Status Active Problem Recommendation Dietitian Recommendations/Changes 1) For day #3 TPN recommend 2L 4.25% AA/10% dextrose at 84mL /hour w/ 250mL 20% lipid solution to provide 1520 calories, 84 g protein, 200 g dextrose. Famotidine per provider order. 2) Recommend advance diet as tolerated to transitional diet ; ensure w/ medpass as diet advanced. 3) Daily wts. Close monitoring of electrolytes. Lab / Micro Data Result Diagrams: 10/18/21 05:30 10/18/21 05:30 Labs: Laboratory Results - last 24 hr 10/17/21 17:52: POC Glucose 143 H 10/17/21 23:54: POC Glucose 147 H 10/18/21 05:27: POC Glucose 125 H 10/18/21 05:30: WBC 7.0, RBC 2.89 L, Hgb 8.4 L, Hct 25.9 L, MCV 89.6, MCH 29.1, MCHC 32.4, RDW Std Deviation 53.0 H, RDW Coeff of Denise 16.1 H, Plt Count 198, MPV 10.1, Immature Gran % (Auto) 0.600, Neut % (Auto) 78.0 H, Lymph % (Auto) 13.3 L, [place] % (Auto) 5.7, Eos % (Auto) 2.3, Baso % (Auto) 0.1, Absolute Neuts (auto) 5.5, Absolute Lymphs (auto) 0.93, Nucleated RBC % 0 10/18/21 05:30: Sodium 141, Potassium 3.2 L, Chloride 107, Carbon Dioxide 28.0, Anion Gap 6, BUN 34 H, Creatinine 0.68 L, Estim Creat Clear Calc 50.49, Est GFR (MDRD) Af Amer 143, Est GFR (MDRD) Non-Af 118, BUN/Creatinine Ratio 50.1 H, Glucose 115 H, Calcium 7.4 L, Magnesium 1.9 10/18/21 05:30: Phosphorus 2.4 L 10/18/21 12:40: POC Glucose 125 H Physical Exam Const alert, oriented x3, no apparent distress and average body habitus Constitutional Narrative: Patient is an elderly white male sitting up in bed, currently appears comfortable, nontoxic, very pleasant, watching television General Appearance: cooperative Exam Limitations: no limitations HEENT normocephalic, head/scalp atraumatic and moist oral mucous membranes; Negative for hearing grossly normal bilaterally Head and Scalp: normocephalic Resp normal respiratory effort, no retractions, no use of accessory muscles and clear to auscultation bilaterally Resp Narrative: Diminished but clear Auscultation: Negative for crackles, rales, rhonchi or wheezes Cardio regular rate, regular rhythm, S1 normal heart sound, S2 normal heart sound, no murmurs, no rub, no gallops, no clicks and no JVD GI soft to palpation and non-distended GI Narrative: Normal active, midline incision with retention sutures in place, clean dry and intact without any signs of infection or erythema, mildly tender at the surgical site Extremity no clubbing, cyanosis or edema Extremity Narrative: 1+ bilateral pedal pulses, trace bilateral lower extremity edema, no cyanosis or clubbing Neuro oriented x3, moves all extremities and no focal motor deficits Neuro Narrative: Generalized weakness Sensorium / Orientation: awake and alert Speech: speech normal Assessment & Plan Assessment/Plan (1) Adynamic ileus: (2) History of small bowel obstruction: (3) Acute hypokalemia: (4) Leukocytosis: (5) Hypokalemia: (6) Hypophosphatemia: PLAN: Distraction secondary to gangrenous small bowel-jejunum -Postop day 2 small bowel resection with anastomosis -60 cm of jejunum were removed and patient has 70 cm of small bowel remaining in the ileum -Continue TPN -Continue n.p.o. but okay for ice chips -Morphine for pain--> patient is using very little as needed pain medication -Enteric panel and C. difficile are negative -Continue Zosyn--> suspect 4 days of treatment after source control -Dr. Denney following Acute hypoxic respiratory failure -Resolved -Patient is now on room air Acute hypokalemia -3.2 this morning -IV K-Phos replacement -Repeat in a.m. Hypophosphatemia -Phos level 2.4 -IV K-Phos replacement -Repeat lab in a.m. 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 09/09/2021 -Continue PT/OT -Surgical site appears benign -Probable discharge back to the TCU when ileus has resolved PAF -Hold oral anticoagulation with Eliquis while n.p.o. -Will restart when bowel function returns and okay with general surgery -Currently in rate controlled atrial fibrillation -Hold oral metoprolol -Continue metoprolol IV at 5 mg every 6 hours CKD stage IIIa -Current serum creatinine is 0.7 -Monitor CAD status post CABG/hypertension/hyperlipidemia/PAD -Hold Home oral medications given ileus -IV metoprolol has been ordered -As needed hydralazine for systolic pressure greater than 160 is available -Restart home medications once obstruction has resolved GERD -Continue IV PPI -Restart oral once able Macrocytic anemia -Hemoglobin at baseline appears to be between 8 and 10 -Hemoglobin is closer to his baseline today at 10.3 -Is on oral iron at baseline--> currently on hold with bowel obstruction Severe malnutrition -P.o. intake has been poor as he is n.p.o. secondary to ileus -Continue TPN until p.o. intake is an option DVT prophylaxis -Prophylactic subcu heparin for now -SCDs while in bed CODE STATUS -DNR CCA with no intubation as per discussion upon admission emergency department Charges/Coding Visit Charges Inpatient E&M: 78661 Subs Hosp L2
[2021-10-18 18:05] LABS: Bedside Glucose 117 mg/dL (70-110)
[2021-10-19] VITALS (12 sets, daily range): BP systolic 126–145; BP diastolic 64–89; PULSE 72–96; RESP 18–20; TEMP 36.4–36.7; O2SAT 93–96
[2021-10-19] MEDS: 0.9% Saline Lock 10 ML Syringe IV ×2 (00:07→05:41)
[2021-10-19 00:21] LABS: Bedside Glucose 131 mg/dL (70-110)
[2021-10-19] MEDS: Metoprolol Tartrate 5 MG/5 ML Vial IV (05:41)
[2021-10-19 06:05] LABS: Bedside Glucose 137 mg/dL (70-110)
--- NOTE | 2021-10-19 06:09 | RAD_ITS ---
STUDY: X-RAY - ABDOMEN/PELVIS REASON FOR EXAM: Male, 86 years old. Ileus TECHNIQUE: Single AP view of the abdomen / pelvis. COMPARISON: Comparison is made with prior study dated 10/15/2021. FINDINGS: Mild increased markings at the left lung base. There is an unremarkable bowel gas pattern. The visualized liver, spleen and kidneys are grossly normal in size and morphology. Normal soft tissue structures. There are diffuse degenerative changes of the visualized lumbar spine. RAD/Abdomen Single View (Portable) IMPRESSION: Nonspecific bowel gas pattern. Gas is seen throughout the colon. Electronically Signed: Porter Singh MD at 10:28 EST ,
[2021-10-19 06:25] LABS: Absolute Lymphocyte Count 1.09 X10^3/uL (0.83-4.51); Basophil# 0.01 X10^3/uL; Basophil% 0.1 % (0-1); Eosinophil# 0.25 X10^3/uL; Eosinophils% 3.6 % (0-5); Hematocrit 27.8 % (40-54); Hemoglobin 8.8 g/dL (13.0-16.5); Lymphocyte # 1.09 X10^3/ul (0.83-4.51); Lymphocyte % 15.8 % (19-41); Mean Corp Hgb Conc 31.7 g/dL (32-36); Mean Corpuscular Hgb 29.5 pg (27.0-32.0); Mean Corpuscular Volume 93.3 fL (80-94); Mean Platelet Vol. 9.7 fl (6.2-12.0); Monocyte# 0.52 X10^3/uL; Monocyte% 7.5 % (0-10); NRBC Flagged by Analyzer 0 % (0-5); Neutrophil # 4.97 X10^3/uL (2.7-7.7); Platelet Count 190 K/mm3 (150-450); RBC Distribution Width CV 16.2 % (11.6-14.6); RBC Distribution Width SD 55.7 fl (35.1-43.9); Red Blood Count 2.98 M/mm3 (4.6-6.2); White Blood Count 6.9 K/mm3 (4.4-11.0)
--- NOTE | 2021-10-19 06:26 | PN.SURG_ITS ---
Subjective Subjective +flatus and BM, pt pulled NG- still draining couple 100 over night-pt also taking ice chips. Objective Data Objective Data Vital Signs: Vital Signs Temp Pulse Resp BP Pulse Ox 97.8 F 80 18 133/89 H 93 10/19/21 05:38 10/19/21 05:41 10/19/21 05:38 10/19/21 05:41 10/19/21 05:38 Oxygen Flow Rate (L/min) 92 Oxygen Delivery Method Room Air Weight: 155 lb 3.287 oz Body Mass Index (BMI) 25.0 Intake & Output: Intake and Output for Last 24 Hours 10/17/21 10/18/21 10/19/21 23:59 23:59 23:59 Intake Total 4099.80 / 4099.80 3434.0333 / 3434.0333 473.25 / 473.25 Output Total 2065 / 2065 1600 / 2275 675 / 675 Balance 2034.80 / 2034.80 1834.0333 / 1159.0333 -201.75 / -201.75 Medical Nutrition Assessment Dietitian: Malnutrition Criteria Met Start: 10/13/21 14:59 Freq: Status: Active Protocol: Document 10/18/21 12:06 (Rec: 10/18/21 12:06 [id number]) Nutrition Malnutrition Evidence of Malnutrition Exists Yes Malnutrition (severe): Acute Illness/Injury Evidenced By Suboptimal Energy Intake ( Severe),Weight Loss (Severe), Physical Changes (Mild) Clinical Problem Acute Disease or Injury Related Malnutrition Etiology severe, acute malnutrition r/t inadequate energy intake d/t recent hospitalizations, SBO, GI dysfunction Signs/Symptoms as evidenced by unintentional 22.9#/12.5% wt loss x 2 months ; 5.5kg/8% wt loss since 10/13; estimated PO intake meeting < 75% of estimated energy needs >1 month; mild muscle wasting/ fat loss in temporal, acromion , and clavicle region Status Active Problem Recommendation Dietitian Recommendations/Changes 1) For day #3 TPN recommend 2L 4.25% AA/10% dextrose at 84mL /hour w/ 250mL 20% lipid solution to provide 1520 calories, 84 g protein, 200 g dextrose. Famotidine per provider order. 2) Recommend advance diet as tolerated to transitional diet ; ensure w/ medpass as diet advanced. 3) Daily wts. Close monitoring of electrolytes. Lab / Micro Data Result Diagrams: 10/19/21 06:05 10/19/21 06:05 Labs: Laboratory Results - last 24 hr 10/18/21 05:30: WBC 7.0, RBC 2.89 L, Hgb 8.4 L, Hct 25.9 L, MCV 89.6, MCH 29.1, MCHC 32.4, RDW Std Deviation 53.0 H, RDW Coeff of Denise 16.1 H, Plt Count 198, MPV 10.1, Immature Gran % (Auto) 0.600, Neut % (Auto) 78.0 H, Lymph % (Auto) 13.3 L, [place] % (Auto) 5.7, Eos % (Auto) 2.3, Baso % (Auto) 0.1, Absolute Neuts (auto) 5.5, Absolute Lymphs (auto) 0.93, Nucleated RBC % 0 10/18/21 05:30: Sodium 141, Potassium 3.2 L, Chloride 107, Carbon Dioxide 28.0, Anion Gap 6, BUN 34 H, Creatinine 0.68 L, Estim Creat Clear Calc 50.49, Est GFR (MDRD) Af Amer 143, Est GFR (MDRD) Non-Af 118, BUN/Creatinine Ratio 50.1 H, Glucose 115 H, Calcium 7.4 L, Magnesium 1.9 10/18/21 05:30: Phosphorus 2.4 L 10/18/21 12:40: POC Glucose 125 H 10/18/21 17:58: POC Glucose 117 H 10/18/21 23:49: POC Glucose 131 H 10/19/21 05:59: POC Glucose 137 H 10/19/21 06:05: WBC 6.9, RBC 2.98 L, Hgb 8.8 L, Hct 27.8 L, MCV 93.3, MCH 29.5, MCHC 31.7 L, RDW Std Deviation 55.7 H, RDW Coeff of Denise 16.2 H, Plt Count 190, MPV 9.7, Immature Gran % (Auto) 1.000 H, Neut % (Auto) 72.0 H, Lymph % (Auto) 15.8 L, [place] % (Auto) 7.5, Eos % (Auto) 3.6, Baso % (Auto) 0.1, Absolute Neuts (auto) 5.0, Absolute Lymphs (auto) 1.09, Nucleated RBC % 0 Physical Exam Narrative Ng in place Resp normal respiratory effort Cardio regular rate GI GI Narrative: Abdomen: Soft, nondistended, mild tender near incision's dressed with w-d dressing/retention sutures in place x 2, no peritoneal signs Assessment & Plan Assessment/Plan (1) S/P small bowel resection: (2) History of small bowel obstruction: PLAN: continue NPO/TPN--will check KUB and hold off on ice chips until evaluated. Addendum: KUB looks to mostly have gas in the colon no obviously small dilated small bowel. However patient's only had 1 bowel movement. Continue patient on sips and chips until increased bowel movements then will transition to clears. Continue patient on his TPN probably even in the TCU as his nutrition is quite poor. Continue zosyn IV--within normal limits we will stop Zosyn after today Out of bed to chair, Lovenox, Protonix IV Justyna Denney M.D. Pager: [phone] [facility] [address] [place] [address], [facility], [address] [place] [address] Office: [phone]
[2021-10-19 06:54] LABS: Anion Gap 3 (5-15); BUN 23 mg/dL (7-18); Calcium,Total 7.4 mg/dL (8.5-10.1); Chloride 109 mmol/L (98-107); Creatinine, Serum 0.58 mg/dL (0.70-1.30); EST Glomerular Filtration Rate 143 mL/min (>60); Est Glom Filt Rate - Afr Amer 173 mL/min (>60); Estimated Creatinine Clearance 50.49 ml/min; Glucose 128 mg/dL (74-106); Magnesium 1.9 mg/dL (1.6-2.6); Phosphorus 2.7 mg/dL (2.5-4.9); Potassium 3.8 mmol/L (3.5-5.1); Sodium Level 140 mmol/L (136-145)
--- NOTE | 2021-10-19 09:17 | CASEMGMT ---
Social Work Note SW updated that pt will be at [facility] through the weekend and will likely need to return to TCU with TPN. SW placed a call to Yuki with TCU and updated her. Plan: Likely return to TCU when medically cleared Shayy Bowman MSW, REPRODUCTION SPECIALIST
[2021-10-19] MEDS: Menthol/Lanolin/Calamine/Znox 113 GM Tube 1 APPLIC TOPICAL ×2 (10:46→22:01)
[2021-10-19] MEDS: Enoxaparin 40 MG/0.4 ML Syringe SC (10:46)
--- NOTE | 2021-10-19 11:37 | PCM.PN.HOSP ---
Subjective Subjective Patient pulled his NG tube out overnight as he stated he was starting to have significant pain in the back of his throat is hurting to swallow. He did have a bowel movement last evening that was small however nothing since. He continues to pass flatus. He is thirsty and would like something to eat. Objective Data Objective Data Vital Signs: Vital Signs Temp Pulse Resp BP Pulse Ox 97.5 F L 94 20 H 145/83 H 96 10/19/21 08:31 10/19/21 08:31 10/19/21 08:31 10/19/21 08:31 10/19/21 08:31 Oxygen Flow Rate (L/min) 92 Oxygen Delivery Method Room Air Weight: 70.4 kg Body Mass Index (BMI) 25.0 Intake & Output: Intake and Output for Last 24 Hours 10/17/21 10/18/21 10/19/21 23:59 23:59 23:59 Intake Total 4099.80 / 4099.80 3434.0333 / 3434.0333 523.25 / 523.25 Output Total 2065 / 2065 1600 / 2275 1075 / 1075 Balance 2034.80 / 2034.80 1834.0333 / 1159.0333 -551.75 / -551.75 Medical Nutrition Assessment Dietitian: Malnutrition Criteria Met Start: 10/13/21 14:59 Freq: Status: Active Protocol: Document 10/19/21 11:16 ARETHA (Rec: 10/19/21 11:16 [email or web address] [id number]) Nutrition Malnutrition Evidence of Malnutrition Exists Yes Malnutrition (severe): Acute Illness/Injury Evidenced By Suboptimal Energy Intake ( Severe),Weight Loss (Severe), Physical Changes (Mild) Clinical Problem Acute Disease or Injury Related Malnutrition Etiology severe, acute malnutrition r/t inadequate energy intake d/t recent hospitalizations, SBO, GI dysfunction Signs/Symptoms as evidenced by unintentional wt loss x 2 months (15.4%); 3. 1% wt loss since 10/13; estimated PO intake meeting < 75% of estimated energy needs >1 month; mild muscle wasting/ fat loss in temporal, acromion , and clavicle region Status Active Problem Recommendation Dietitian Recommendations/Changes 1) For day #4 TPN recommend 2L 4.25% AA/10% dextrose at 84mL /hour to provide 1020 calories , 84 g protein, 200 g dextrose . Famotidine per provider order. 2) Recommend advance diet as tolerated to transitional diet ; ensure w/ medpass as diet advanced. 3) Daily wts. Close monitoring of electrolytes. Lab / Micro Data Result Diagrams: 10/19/21 06:05 10/19/21 06:05 Labs: Laboratory Results - last 24 hr 10/18/21 12:40: POC Glucose 125 H 10/18/21 17:58: POC Glucose 117 H 10/18/21 23:49: POC Glucose 131 H 10/19/21 05:59: POC Glucose 137 H 10/19/21 06:05: Sodium 140, Potassium 3.8, Chloride 109 H, Carbon Dioxide 28.0, Anion Gap 3 L, BUN 23 H, Creatinine 0.58 L, Estim Creat Clear Calc 50.49, Est GFR (MDRD) Af Amer 173, Est GFR (MDRD) Non-Af 143, BUN/Creatinine Ratio 40.0 H, Glucose 128 H, Calcium 7.4 L, Phosphorus 2.7, Magnesium 1.9 10/19/21 06:05: WBC 6.9, RBC 2.98 L, Hgb 8.8 L, Hct 27.8 L, MCV 93.3, MCH 29.5, MCHC 31.7 L, RDW Std Deviation 55.7 H, RDW Coeff of Denise 16.2 H, Plt Count 190, MPV 9.7, Immature Gran % (Auto) 1.000 H, Neut % (Auto) 72.0 H, Lymph % (Auto) 15.8 L, [place] % (Auto) 7.5, Eos % (Auto) 3.6, Baso % (Auto) 0.1, Absolute Neuts (auto) 5.0, Absolute Lymphs (auto) 1.09, Nucleated RBC % 0 Radiography Diagnostic Testing: Radiology Impression KUB X-Ray 10/19/21 06:09 IMPRESSION: Nonspecific bowel gas pattern. Gas is seen throughout the colon. Electronically Signed: Porter Singh MD at 10:28 EST , Physical Exam Const alert, oriented x3, no apparent distress and average body habitus Constitutional Narrative: Patient is an elderly white male sitting up in a chair at the bedside, currently appears comfortable, nontoxic, very pleasant, watching television General Appearance: cooperative Exam Limitations: no limitations HEENT normocephalic, head/scalp atraumatic and moist oral mucous membranes; Negative for hearing grossly normal bilaterally Head and Scalp: normocephalic Resp normal respiratory effort, no retractions, no use of accessory muscles and clear to auscultation bilaterally Resp Narrative: Diminished but clear Auscultation: Negative for crackles, rales, rhonchi or wheezes Cardio regular rate, regular rhythm, S1 normal heart sound, S2 normal heart sound, no murmurs, no rub, no gallops, no clicks and no JVD GI soft to palpation, non-tender and non-distended GI Narrative: Midline incision covered with a clean bandage, bowel sounds are normal Extremity no clubbing, cyanosis or edema Extremity Narrative: 1+ bilateral pedal pulses, trace bilateral lower extremity edema, no cyanosis or clubbing Neuro oriented x3, moves all extremities and no focal motor deficits Neuro Narrative: Generalized weakness Sensorium / Orientation: awake and alert Speech: speech normal Psych Psych Narrative: Very pleasant Assessment & Plan Assessment/Plan (1) History of small bowel obstruction: (2) Acute hypokalemia: (3) Ischemic necrosis of small bowel: (4) S/P small bowel resection: PLAN: Distraction secondary to gangrenous small bowel-jejunum -Postop day 2 small bowel resection with anastomosis -60 cm of jejunum were removed and patient has 70 cm of small bowel remaining in the ileum -Continue TPN--> I do anticipate him being discharged on TPN for a period of time until his p.o. intake has improved as he has been malnourished for some time now -Continue n.p.o. but okay for ice chips--> discussed with Dr. Denney and she would like him to have more extensive bowel movements before initiating a p.o. diet -Morphine for pain--> patient is using very little as needed pain medication -Enteric panel and C. difficile are negative -Continue Zosyn--> to be completed today -Dr. Denney following Acute hypokalemia - resolved -Repeat in a.m. Hypophosphatemia -Resolved -Repeat in a.m. 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 09/09/2021 -Continue PT/OT -Surgical site appears benign -Probable discharge back to the TCU when ileus has resolved PAF -Restart home Eliquis 5 mg daily -Currently in rate controlled atrial fibrillation -Restart home oral metoprolol -Discontinue metoprolol IV at 5 mg every 6 hours CKD stage IIIa -Current serum creatinine is 0.58 -Monitor CAD status post CABG/hypertension/hyperlipidemia/PAD -Restart home oral medications today -As needed hydralazine for systolic pressure greater than 160 is available GERD -Restart home oral PPI Macrocytic anemia -Hemoglobin at baseline appears to be between 8 and 10 -Hemoglobin is closer to his baseline today at 10.3 -Restart home iron Severe malnutrition -P.o. intake has been poor as he is n.p.o. secondary to ileus -Continue TPN until p.o. intake is an option and optimal -Dissipate discharge to TCU on TPN DVT prophylaxis -Prophylactic subcu heparin for now -SCDs while in bed CODE STATUS -DNR CCA with no intubation as per discussion upon admission emergency department Charges/Coding Visit Charges Inpatient E&M: 80887 Subs Hosp L2
[2021-10-19 12:25] LABS: Prealbumin 5.4 mg/dL (20.0-40.0)
[2021-10-19 12:30] LABS: Bedside Glucose 138 mg/dL (70-110)
[2021-10-19 17:46] LABS: Bedside Glucose 126 mg/dL (70-110)
[2021-10-19] MEDS: Iron Polysaccharide Complex 150 MG CAPSULE PO (21:56)
[2021-10-19] MEDS: Atorvastatin Calcium 40 MG Tablet PO (21:59)
[2021-10-19] MEDS: APIXABAN 5 MG TABLET PO (21:59)
[2021-10-19] MEDS: Pentoxifylline 400 MG Tablet PO (23:12)
[2021-10-20] VITALS (12 sets, daily range): BP systolic 101–134; BP diastolic 50–84; PULSE 66–96; RESP 16–18; TEMP 36.6–36.9; O2SAT 94–96
[2021-10-20 00:46] LABS: Bedside Glucose 118 mg/dL (70-110)
[2021-10-20 05:41] LABS: Bedside Glucose 115 mg/dL (70-110)
[2021-10-20 06:18] LABS: Absolute Lymphocyte Count 1.23 X10^3/uL (0.83-4.51); Absolute Neutrophil Count 5.7 X10^3/uL (2.0-7.7); Basophil# 0.02 X10^3/uL; Basophil% 0.3 % (0-1); Eosinophil# 0.36 X10^3/uL; Eosinophils% 4.5 % (0-5); Hematocrit 28.4 % (40-54); Hemoglobin 9.1 g/dL (13.0-16.5); Lymphocyte # 1.23 X10^3/ul (0.83-4.51); Lymphocyte % 15.5 % (19-41); Mean Corpuscular Hgb 29.4 pg (27.0-32.0); Mean Corpuscular Volume 91.9 fL (80-94); Mean Platelet Vol. 10.4 fl (6.2-12.0); Monocyte# 0.54 X10^3/uL; Monocyte% 6.8 % (0-10); NRBC Flagged by Analyzer 0 % (0-5); Neutrophil # 5.72 X10^3/uL (2.7-7.7); Platelet Count 198 K/mm3 (150-450); RBC Distribution Width CV 16.2 % (11.6-14.6); RBC Distribution Width SD 53.7 fl (35.1-43.9); Red Blood Count 3.09 M/mm3 (4.6-6.2); White Blood Count 7.9 K/mm3 (4.4-11.0)
[2021-10-20 06:47] LABS: Anion Gap 3 (5-15); BUN 19 mg/dL (7-18); BUN/Creat Ratio 40.3 RATIO (10-20); Calcium,Total 7.6 mg/dL (8.5-10.1); Chloride 107 mmol/L (98-107); Creatinine, Serum 0.47 mg/dL (0.70-1.30); EST Glomerular Filtration Rate 179 mL/min (>60); Est Glom Filt Rate - Afr Amer 217 mL/min (>60); Estimated Creatinine Clearance 53.78 ml/min; Glucose 98 mg/dL (74-106); Potassium 4.3 mmol/L (3.5-5.1); Sodium Level 138 mmol/L (136-145)
--- NOTE | 2021-10-20 10:46 | PN.SURG_ITS ---
Subjective Subjective Patient was seen and examined during AM rounds. He is found sitting out of bed in a chair. He stated that he was feeling much better and was enjoying the sun coming through the window. He reported bowel movement overnight as well as this morning with very liquid consistency. Happy to report that he has much less abdominal discomfort. Objective Data Objective Data Vital Signs: Vital Signs Temp Pulse Resp BP Pulse Ox 98.2 F 85 16 126/84 H 95 10/20/21 03:10 10/20/21 03:10 10/20/21 03:10 10/20/21 03:10 10/20/21 03:10 Oxygen Flow Rate (L/min) 92 Oxygen Delivery Method Room Air Weight: 156 lb 15.506 oz Body Mass Index (BMI) 25.0 Intake & Output: Intake and Output for Last 24 Hours 10/18/21 10/19/21 10/20/21 23:59 23:59 23:59 Intake Total 3434.0333 / 3434.0333 2990.35 / 2990.35 50 / 50 Output Total 1600 / 2275 1675 / 1675 Balance 1834.0333 / 1159.0333 1315.35 / 1315.35 50 / 50 Medical Nutrition Assessment Dietitian: Malnutrition Criteria Met Start: 10/13/21 14:59 Freq: Status: Active Protocol: Document 10/20/21 10:37 RMA (Rec: 10/20/21 10:38 RMA [id number]) Nutrition Malnutrition Evidence of Malnutrition Exists Yes Malnutrition (severe): Acute Illness/Injury Evidenced By Suboptimal Energy Intake ( Severe),Weight Loss (Severe), Physical Changes (Mild) Clinical Problem Acute Disease or Injury Related Malnutrition Etiology severe, acute malnutrition r/t inadequate energy intake d/t recent hospitalizations, SBO, GI dysfunction Signs/Symptoms as evidenced by unintentional wt loss x 2 months (15.4%); 3. 1% wt loss since 10/13; estimated PO intake meeting < 75% of estimated energy needs >1 month; mild muscle wasting/ fat loss in temporal, acromion , and clavicle region Status Active Problem Recommendation Dietitian Recommendations/Changes TPN Day #5 ordered today: will continue 2L 4.25% AA/10% Dextrose at 84mL/hour to provide 1020 calories, 84 g protein, 200 g dextrose with electrolytes, MVI, folic acid, trace elements. Famotidine added per provider order. Will continue TPN as ordered with lipid infusion friday, friday, friday. Advance PO nutrition as medically able to Transitional Diet as tolerated. Lab / Micro Data Result Diagrams: 10/20/21 04:54 10/21/21 05:32 Labs: Laboratory Results - last 24 hr 10/19/21 06:05: Prealbumin 5.4 L 10/19/21 12:22: POC Glucose 138 H 10/19/21 17:38: POC Glucose 126 H 10/20/21 00:43: POC Glucose 118 H 10/20/21 04:54: WBC 7.9, RBC 3.09 L, Hgb 9.1 L, Hct 28.4 L, MCV 91.9, MCH 29.4, MCHC 32.0, RDW Std Deviation 53.7 H, RDW Coeff of Denise 16.2 H, Plt Count 198, MPV 10.4, Immature Gran % (Auto) 0.900, Neut % (Auto) 72.0 H, Lymph % (Auto) 15.5 L, [place] % (Auto) 6.8, Eos % (Auto) 4.5, Baso % (Auto) 0.3, Absolute Neuts (auto) 5 .7, Absolute Lymphs (auto) 1.23, Nucleated RBC % 0 10/20/21 04:54: Sodium 138, Potassium 4.3, Chloride 107, Carbon Dioxide 28.0, Anion Gap 3 L, BUN 19 H, Creatinine 0.47 L, Estim Creat Clear Calc 53.78, Est G FR (MDRD) Af Amer 217, Est GFR (MDRD) Non-Af 179, BUN/Creatinine Ratio 40.3 H, Glucose 98, Calcium 7.6 L 10/20/21 05:33: POC Glucose 115 H Physical Exam Const no apparent distress Resp normal respiratory effort GI GI Narrative: Midline laparotomy incision covered with clean, dry dressing. Retention sutures in place. No surrounding erythema or drainage from midline laparotomy wound but remains open at the skin. Patient with minimal tenderness to palpation the right lower quadrant Assessment & Plan Assessment/Plan (1) S/P small bowel resection: (2) History of small bowel obstruction: PLAN: Advance to clear liquid diet given evidence of return of bowel f unction and KUB officially reported as demonstrating colonic gas. Patient's abdominal exam continues to improve. Given severe malnutrition, also adding Ensure clears. Continue patient on his TPN probably even in the TCU as his nutrition is quite poor. Out of bed to chair, Yossi, Harshix IV Jagdeep Courtney MD General Surgery Endocrine Surgery Pager: [facility] [address] [place] [address], [facility], [address] [place] [address] Office: [phone] Charges/Coding Visit Charges Inpatient E&M: 93350 Subs Hosp L2
[2021-10-20] MEDS: APIXABAN 5 MG TABLET PO ×2 (10:48→21:45)
[2021-10-20] MEDS: hydroCHLOROthiazide 25 MG Tablet PO (10:48)
[2021-10-20] MEDS: Menthol/Lanolin/Calamine/Znox 113 GM Tube 1 APPLIC TOPICAL ×2 (10:48→21:45)
[2021-10-20] MEDS: Iron Polysaccharide Complex 150 MG CAPSULE PO ×2 (10:48→17:31)
[2021-10-20] MEDS: amLODIPine 10 MG Tablet PO (10:48)
[2021-10-20] MEDS: Pantoprazole Sodium 40 MG Tablet PO (10:48)
[2021-10-20] MEDS: Metoprolol Tartrate 100 MG Tablet PO (10:49)
[2021-10-20] MEDS: Pentoxifylline 400 MG Tablet PO ×2 (10:49→21:44)
[2021-10-20] MEDS: Ramipril 10 MG Capsule PO (10:53)
[2021-10-20] MEDS: Ensure Clear 120 ML Liquid PO ×2 (12:04→17:31)
[2021-10-20 12:26] LABS: Bedside Glucose 121 mg/dL (70-110)
--- NOTE | 2021-10-20 13:28 | PN.HOSP_ITS ---
Subjective Subjective No issues overnight. Patient states he had a large bowel movement this morning. Is anxious to start an oral diet. Had a short run of what appeared to be A. fib with aberrancy. He was asymptomatic during that time and has had no further telemetry issues. Objective Data Objective Data Vital Signs: Vital Signs Temp Pulse Resp BP Pulse Ox 98.1 F 87 18 134/60 H 95 10/20/21 08:00 10/20/21 11:00 10/20/21 08:00 10/20/21 10:49 10/20/21 08:00 Oxygen Flow Rate (L/min) 92 Oxygen Delivery Method Room Air Weight: 71.2 kg Body Mass Index (BMI) 25.0 Intake & Output: Intake and Output for Last 24 Hours 10/18/21 10/19/21 10/20/21 23:59 23:59 23:59 Intake Total 3434.0333 / 3434.0333 2990.35 / 2990.35 50 / 50 Output Total 1600 / 2275 1675 / 1675 700 / 700 Balance 1834.0333 / 1159.0333 1315.35 / 1315.35 -650 / -650 Medical Nutrition Assessment Dietitian: Malnutrition Criteria Met Start: 10/13/21 1 4:59 Freq: Status: Active Protocol: Document 10/20/21 10:37 RMA (Rec: 10/20/21 10:38 RMA [id number]) Nutrition Malnutrition Evidence of Malnutrition Exists Yes Malnutrition (severe): Acute Illness/Injury Evidenced By Suboptimal Energy Intake ( Severe),Weight Loss (Severe), Physical Changes (Mild) Clinical Problem Acute Disease or Injury Related Malnutrition Etiology severe, acute malnutrition r/t inadequate energy intake d/t recent hospitalizations, SBO, GI dysfunction Signs/Symptoms as evidenced by unintentional wt loss x 2 months (15.4%); 3. 1% wt loss since 10/13; estimated PO intake meeting < 75% of estimated energy needs >1 month; mild muscle wasting/ fat loss in temporal, acromion , and clavicle region Status Active Problem Recommendation Dietitian Recommendations/Changes TPN Day #5 ordered today: will continue 2L 4.25% AA/10% Dextrose at 84mL/hour to provide 1020 calories, 84 g protein, 200 g dextrose with electrolytes, MVI, folic acid, trace elements. Famotidine added per provider order. Will continue TPN as ordered with lipid infusion friday, friday, friday. Advance PO nutrition as medically able to Transitional Diet as tolerated. Lab / Micro Data Result Diagrams: 10/20/21 04:54 10/20/21 04:54 Labs: Laboratory Results - last 24 hr 10/19/21 17:38: POC Glucose 126 H 10/20/21 00:43: POC Glucose 118 H 10/20/21 04:54: WBC 7.9, RBC 3.09 L, Hgb 9.1 L, Hct 28.4 L, MCV 91.9, MCH 29.4, MCHC 32.0, RDW Std Deviation 53.7 H, RDW Coeff of Denise 16.2 H, Plt Count 198, MPV 10.4, Immature Gran % (Auto) 0.900, Neut % (Auto) 72.0 H, Lymph % (Auto) 15.5 L, [place] % (Auto) 6.8, Eos % (Auto) 4.5, Baso % (Auto) 0.3, Absolute Neuts (auto) 5.7, Absolute Lymphs (auto) 1.23, Nucleated RBC % 0 10/20/21 04:54: Sodium 138, Potassium 4.3, Chloride 107, Carbon Dioxide 28.0, Anion Gap 3 L, BUN 19 H, Creatinine 0.47 L, Estim Creat Clear Calc 53.78, Est GFR (MDRD) Af Amer 217, Est GFR (MDRD) Non-Af 179, BUN/Creatinine Ratio 40.3 H, Glucose 98, Calcium 7.6 L 10/20/21 05:33: POC Glucose 115 H 10/20/21 12:07: POC Glucose 121 H Physical Exam Const alert, oriented x3, no apparent distress and average body habitus Constitutional Narrative: Patient is an elderly white male sitting up in a chair at the bedside, currently appears comfortable, nontoxic, very pleasant, watching a [place] movie General Appearance: cooperative Exam Limitations: no limitations HEENT normocephalic, head/scalp atraumatic and moist oral mucous membranes; Negative for hearing grossly normal bilaterally Head and Scalp: normocephalic Resp normal respiratory effort, no retractions, no use of accessory muscles and clear to auscultation bilaterally Resp Narrative: Diminished but clear Auscultation: Negative for crackles, rales, rhonchi or wheezes Cardio regular rate, regular rhythm, S1 normal heart sound, S2 normal heart sound, no murmurs, no rub, no gallops, no clicks and no JVD GI soft to palpation and non-distended GI Narrative: Midline incision covered with a clean bandage, bowel sounds are normal, mild tenderness around surgical incision Extremity no clubbing, cyanosis or edema Extremity Narrative: 1+ bilateral pedal pulses, trace bilateral lower extremity edema, no cyanosis or clubbing Neuro oriented x3, moves all extremities and no focal motor deficits Neuro Narrative: Generalized weakness Sensorium / Orientation: awake and alert Speech: speech normal Assessment & Plan Assessment/Plan (1) History of small bowel obstruction: (2) Acute hypokalemia: (3) Ischemic necrosis of small bowel: (4) S/P small bowel resection: PLAN: Distraction secondary to gangrenous small bowel-jejunum -Postop day 2 small bowel resection with anastomosis -60 cm of jejunum were removed and patient has 70 cm of small bowel remaining in the ileum -Continue TPN--> I do anticipate him being discharged on TPN for a period of time until his p.o. intake has improved as he has been malnourished for some ti me now -Clear liquid diet initiated today -Morphine for pain--> patient is using very little as needed pain medication -Completed course of IV Zosyn -Dr. 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 09/09/2021 -Continue PT/OT -Surgical site appears benign -Probable discharge back to the TCU when ileus has resolved PAF -conthome Eliquis 5 mg daily -Currently in rate controlled atrial fibrillation -Restart home oral metoprolol -Discontinue metoprolol IV at 5 mg every 6 hours CKD stage IIIa -Current serum creatinine is 0.47 -Monitor -lasix today CAD status post CABG/hypertension/hyperlipidemia/PAD -Restart home oral medications today -As needed hydralazine for systolic pressure greater than 160 is available GERD -Continue home oral PPI Macrocytic anemia -Hemoglobin at baseline appears to be between 8 and 10 -Hemoglobin is closer to his baseline today at 10.3 -Restart home iron Severe malnutrition -P.o. intake has been poor -Clear liquid diet initiated today -Continue TPN until p.o. intake is an option and optimal -Dissipate discharge to TCU on TPN DVT prophylaxis -Prophylactic subcu heparin for now -SCDs while in bed CODE STATUS -DNR CCA with no intubation as per discussion upon admission emergency department
[2021-10-20] MEDS: Furosemide 40 MG/4 ML Vial IV (14:20)
[2021-10-20] MEDS: 0.9% Saline Lock 10 ML Syringe IV (14:21)
[2021-10-20 18:21] LABS: Bedside Glucose 110 mg/dL (70-110)
[2021-10-20] MEDS: Atorvastatin Calcium 40 MG Tablet PO (21:44)
[2021-10-21] VITALS (10 sets, daily range): BP systolic 111–134; BP diastolic 57–81; PULSE 76–87; RESP 18; TEMP 36.3–36.8; O2SAT 93–99
[2021-10-21 00:41] LABS: Bedside Glucose 104 mg/dL (70-110)
[2021-10-21 06:21] LABS: Bedside Glucose 115 mg/dL (70-110)
[2021-10-21 07:09] LABS: Anion Gap 4 (5-15); BUN 22 mg/dL (7-18); BUN/Creat Ratio 35.8 RATIO (10-20); Calcium,Total 7.7 mg/dL (8.5-10.1); Chloride 103 mmol/L (98-107); Creatinine, Serum 0.61 mg/dL (0.70-1.30); EST Glomerular Filtration Rate 132 mL/min (>60); Est Glom Filt Rate - Afr Amer 160 mL/min (>60); Estimated Creatinine Clearance 52.94 ml/min; Glucose 104 mg/dL (74-106); Magnesium 2.1 mg/dL (1.6-2.6); Phosphorus 2.7 mg/dL (2.5-4.9); Sodium Level 136 mmol/L (136-145)
[2021-10-21] MEDS: Ensure Clear 120 ML Liquid PO (09:29)
[2021-10-21] MEDS: Ramipril 10 MG Capsule PO (09:30)
[2021-10-21] MEDS: Pentoxifylline 400 MG Tablet PO ×2 (09:30→21:03)
[2021-10-21] MEDS: amLODIPine 10 MG Tablet PO (09:30)
[2021-10-21] MEDS: Pantoprazole Sodium 40 MG Tablet PO (09:30)
[2021-10-21] MEDS: hydroCHLOROthiazide 25 MG Tablet PO (09:30)
[2021-10-21] MEDS: Iron Polysaccharide Complex 150 MG CAPSULE PO ×2 (09:31→16:05)
[2021-10-21] MEDS: Furosemide 40 MG/4 ML Vial IV (09:31)
[2021-10-21] MEDS: APIXABAN 5 MG TABLET PO ×2 (09:31→21:04)
[2021-10-21] MEDS: 0.9% Saline Lock 10 ML Syringe IV (09:32)
[2021-10-21] MEDS: Metoprolol Tartrate 100 MG Tablet PO (09:36)
[2021-10-21] MEDS: Menthol/Lanolin/Calamine/Znox 113 GM Tube 1 APPLIC TOPICAL ×2 (09:41→21:07)
--- NOTE | 2021-10-21 10:08 | PN.SURG_ITS ---
Subjective Subjective Patient was seen and examined during AM rounds. He is found sitting out of bed in a chair, but appears to be dozing. He states that he is feeling really well and has been exercising. He continues to have bowel movements and states he finds the broth associated with his clear liquid diet unappetizing, but denies any response of nausea or vomiting when he takes the other components of this diet. He seems to enjoy the Ensure clears. Objective Data Objective Data Vital Signs: Vital Signs Temp Pulse Resp BP Pulse Ox 97.4 F L 76 18 134/81 H 99 10/21/21 09:39 10/21/21 09:39 10/21/21 09:39 10/21/21 09:39 10/21/21 09:39 Oxygen Flow Rate (L/min) 92 Oxygen Delivery Method Room Air Weight: 152 lb 12.485 oz Body Mass Index (BMI) 25.0 Intake & Output: Intake and Output for Last 24 Hours 10/19/21 10/20/21 10/21/21 23:59 23:59 23:59 Intake Total 2990.35 / 2990.35 2194 / 2194 200 / 200 Output Total 1675 / 1675 700 / 1300 1000 / 1000 Balance 1315.35 / 1315.35 1494 / 894 -800 / -800 Medical Nutrition Assessment Dietitian: Malnutrition Criteria Met Start: 10/13/21 14:59 Freq: Status: Active Protocol: Document 10/20/21 10:37 RMA (Rec: 10/20/21 10:38 RMA [id number]) Nutrition Malnutrition Evidence of Malnutrition Exists Yes Malnutrition (severe): Acute Illness/Injury Evidenced By Suboptimal Energy Intake ( Severe),Weight Loss (Severe), Physical Changes (Mild) Clinical Problem Acute Disease or Injury Related Malnutrition Etiology severe, acute malnutrition r/t inadequate energy intake d/t recent hospitalizations, SBO, GI dysfunction Signs/Symptoms as evidenced by unintentional wt loss x 2 months (15.4%); 3. 1% wt loss since 10/13; estimated PO intake meeting < 75% of estimated energy needs >1 month; mild muscle wasting/ fat loss in temporal, acromion , and clavicle region Status Active Problem Recommendation Dietitian Recommendations/Changes TPN Day #5 ordered today: will continue 2L 4.25% AA/10% Dextrose at 84mL/hour to provide 1020 calories, 84 g protein, 200 g dextrose with electrolytes, MVI, folic acid, trace elements. Famotidine added per provider order. Will continue TPN as ordered with lipid infusion friday, friday, friday. Advance PO nutrition as medically able to Transitional Diet as tolerated. Lab / Micro Data Result Diagrams: 10/20/21 04:54 10/21/21 05:32 Labs: Laboratory Results - last 24 hr 10/20/21 12:07: POC Glucose 121 H 10/20/21 18:17: POC Glucose 110 10/21/21 00:25: POC Glucose 104 10/21/21 05:32: Sodium 136, Potassium 4.0, Chloride 103, Carbon Dioxide 29.0, Anion Gap 4 L, BUN 22 H, Creatinine 0.61 L, Estim Creat Clear Calc 52.94, Est GFR (MDRD) Af Amer 160, Est GFR (MDRD) Non-Af 132, BUN/Creatinine Ratio 35.8 H, Glucose 104, Calcium 7.7 L, Phosphorus 2.7, Magnesium 2.1 10/21/21 06:11: POC Glucose 115 H Physical Exam Const oriented x3 and no apparent distress Resp normal respiratory effort GI GI Narrative: Nondistended, midline dressing in place without evidence of drainage. Periincisional tissues without erythema. Retention sutures in place. Abdomen relatively nontender to palpation x4 quadrants. Assessment & Plan Assessment/Plan (1) S/P small bowel resection: (2) History of small bowel obstruction: PLAN: Patient tolerated advance to clear liquid diet with Ensure clears yesterday. Continues to have bowel function. Abdominal exam very assuring. We will plan to advance to full liquid diet today with regular Ensure supplements. Did work with patient on incentive spirometer and he is pulling only 750 mL in vital capacity, instructed him to increase the frequency here. We will continue TPN given patient's protein calorie malnutrition. Out of bed to chair, Lovenox, Protonix IV Jagdeep Courtney MD General Surgery Endocrine Surgery Pager: [facility] [address] [place] [address], Outpatient [place], [address] [place] [address] Office: [phone] Charges/Coding Visit Charges Inpatient E&M: 50157 Subs Hosp L2
--- NOTE | 2021-10-21 10:27 | PCM.PN.HOSP ---
Subjective Subjective Patient continues to have bowel movements and reports that his pain is well controlled. Abdominal pain is reducing overall. No emesis or nausea. Objective Data Objective Data Vital Signs: Vital Signs Temp Pulse Resp BP Pulse Ox 97.4 F L 76 18 134/81 H 99 10/21/21 09:39 10/21/21 09:39 10/21/21 09:39 10/21/21 09:39 10/21/21 09:39 Oxygen Flow Rate (L/min) 92 Oxygen Delivery Method Room Air Weight: 69.3 kg Body Mass Index (BMI) 25.0 Intake & Output: Intake and Output for Last 24 Hours 10/19/21 10/20/21 10/21/21 23:59 23:59 23:59 Intake Total 2990.35 / 2990.35 2194 / 2194 200 / 200 Output Total 1675 / 1675 700 / 1300 1000 / 1000 Balance 1315.35 / 1315.35 1494 / 894 -800 / -800 Medical Nutrition Assessment Dietitian: Malnutrition Criteria Met Start: 10/13/21 14:59 Freq: Status: Active Protocol: Document 10/20/21 10:37 RMA (Rec: 10/20/21 10:38 RMA [id number]) Nutrition Malnutrition Evidence of Malnutrition Exists Yes Malnutrition (severe): Acute Illness/Injury Evidenced By Suboptimal Energy Intake ( Severe),Weight Loss (Severe), Physical Changes (Mild) Clinical Problem Acute Disease or Injury Related Malnutrition Etiology severe, acute malnutrition r/t inadequate energy intake d/t recent hospitalizations, SBO, GI dysfunction Signs/Symptoms as evidenced by unintentional wt loss x 2 months (15.4%); 3. 1% wt loss since 10/13; estimated PO intake meeting < 75% of estimated energy needs >1 month; mild muscle wasting/ fat loss in temporal, acromion , and clavicle region Status Active Problem Recommendation Dietitian Recommendations/Changes TPN Day #5 ordered today: will continue 2L 4.25% AA/10% Dextrose at 84mL/hour to provide 1020 calories, 84 g protein, 200 g dextrose with electrolytes, MVI, folic acid, trace elements. Famotidine added per provider order. Will continue TPN as ordered with lipid infusion friday, friday, friday. Advance PO nutrition as medically able to Transitional Diet as tolerated. Lab / Micro Data Result Diagrams: 10/20/21 04:54 10/21/21 05:32 Labs: Laboratory Results - last 24 hr 10/20/21 12:07: POC Glucose 121 H 10/20/21 18:17: POC Glucose 110 10/21/21 00:25: POC Glucose 104 10/21/21 05:32: Sodium 136, Potassium 4.0, Chloride 103, Carbon Dioxide 29.0, Anion Gap 4 L, BUN 22 H, Creatinine 0.61 L, Estim Creat Clear Calc 52.94, Est GFR (MDRD) Af Amer 160, Est GFR (MDRD) Non-Af 132, BUN/Creatinine Ratio 35.8 H, Glucose 104, Calcium 7.7 L, Phosphorus 2.7, Magnesium 2.1 10/21/21 06:11: POC Glucose 115 H Physical Exam Const alert, oriented x3, no apparent distress and average body habitus Constitutional Narrative: Patient is an elderly white male sitting up in a chair at the bedside, currently appears comfortable, nontoxic, very pleasant, watching fishing show General Appearance: cooperative Exam Limitations: no limitations HEENT normocephalic, head/scalp atraumatic and moist oral mucous membranes; Negative for hearing grossly normal bilaterally Head and Scalp: normocephalic Resp normal respiratory effort, no retractions, no use of accessory muscles and clear to auscultation bilaterally Resp Narrative: Diminished but clear Auscultation: Negative for crackles, rales, rhonchi or wheezes Cardio regular rate, regular rhythm, S1 normal heart sound, S2 normal heart sound, no murmurs, no rub, no gallops, no clicks and no JVD GI soft to palpation, non-tender and non-distended GI Narrative: Midline incision covered with a clean bandage, bowel sounds are normal Extremity no clubbing, cyanosis or edema Extremity Narrative: 1+ bilateral pedal pulses, trace bilateral lower extremity edema, no cyanosis or clubbing Neuro oriented x3, moves all extremities and no focal motor deficits Neuro Narrative: Generalized weakness Sensorium / Orientation: awake and alert Speech: speech normal Assessment & Plan Assessment/Plan (1) History of small bowel obstruction: (2) Acute hypokalemia: (3) Ischemic necrosis of small bowel: (4) S/P small bowel resection: PLAN: Distraction secondary to gangrenous small bowel-jejunum -Postop day 7 small bowel resection with anastomosis -60 cm of jejunum were removed and patient has 70 cm of small bowel remaining in the ileum -Continue TPN--> I do anticipate him being discharged on TPN for a period of time until his p.o. intake has improved as he has been malnourished for some time now -TPN reordered for today -Diet advanced to full liquid diet today with no carbonation -Morphine for pain--> patient is using very little as needed pain medication -Completed course of IV Zosyn -Dr. 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 intake CAD status post CABG/hypertension/hyperlipidemia/PAD -Home antihypertensives have been been resumed -As needed hydralazine for systolic pressure greater than 160 is available -Statin reinitiated GERD -Continue home oral PPI Macrocytic anemia -Hemoglobin at baseline appears to be between 8 and 10 -Hemoglobin is closer to his baseline today at 10.3 -Continue home oral iron supplements Severe malnutrition -P.o. intake has been poor -Clear liquid diet initiated today -Continue TPN until p.o. intake is an option and optimal -Anticipate discharge to TCU on TPN DVT prophylaxis -Prophylactic subcu heparin for now -SCDs while in bed CODE STATUS -DNR CCA with no intubation as per discussion upon admission emergency department Charges/Coding Visit Charges Inpatient E&M: 46036 Subs Hosp L2
[2021-10-21 12:01] LABS: Bedside Glucose 150 mg/dL (70-110)
[2021-10-21 17:56] LABS: Bedside Glucose 123 mg/dL (70-110)
[2021-10-21] MEDS: Atorvastatin Calcium 40 MG Tablet PO (21:03)
[2021-10-22] VITALS (12 sets, daily range): BP systolic 86–125; BP diastolic 45–74; PULSE 53–73; RESP 16–18; TEMP 36.4–36.7; O2SAT 94–96
[2021-10-22 00:41] LABS: Bedside Glucose 126 mg/dL (70-110)
[2021-10-22 06:10] LABS: Absolute Lymphocyte Count 1.34 X10^3/uL (0.83-4.51); Absolute Neutrophil Count 7.9 X10^3/uL (2.0-7.7); Basophil# 0.02 X10^3/uL; Basophil% 0.2 % (0-1); Eosinophil# 0.37 X10^3/uL; Eosinophils% 3.6 % (0-5); Hematocrit 29.9 % (40-54); Hemoglobin 9.5 g/dL (13.0-16.5); Lymphocyte # 1.34 X10^3/ul (0.83-4.51); Lymphocyte % 12.9 % (19-41); Mean Corp Hgb Conc 31.8 g/dL (32-36); Mean Corpuscular Hgb 29.2 pg (27.0-32.0); Mean Platelet Vol. 10.8 fl (6.2-12.0); Monocyte# 0.66 X10^3/uL; Monocyte% 6.4 % (0-10); NRBC Flagged by Analyzer 0 % (0-5); Neutrophil # 7.87 X10^3/uL (2.7-7.7); Platelet Count 252 K/mm3 (150-450); RBC Distribution Width CV 16.4 % (11.6-14.6); RBC Distribution Width SD 54.2 fl (35.1-43.9); Red Blood Count 3.25 M/mm3 (4.6-6.2); White Blood Count 10.4 K/mm3 (4.4-11.0)
[2021-10-22 06:26] LABS: Bedside Glucose 117 mg/dL (70-110)
[2021-10-22 06:42] LABS: ALB/GLOB Ratio 0.4 RATIO (0.9-2.4); AST(SGOT) 40 U/L (15-37); Alanine Aminotransfer ALT/SGPT 35 U/L (16-61); Albumin, Serum 1.6 g/dL (3.2-5.0); Alkaline Phosphatase 156 U/L (45-117); Anion Gap 3 (5-15); BUN 25 mg/dL (7-18); BUN/Creat Ratio 43.2 RATIO (10-20); Calcium,Total 7.6 mg/dL (8.5-10.1); Chloride 104 mmol/L (98-107); Creatinine, Serum 0.58 mg/dL (0.70-1.30); EST Glomerular Filtration Rate 142 mL/min (>60); Est Glom Filt Rate - Afr Amer 171 mL/min (>60); Estimated Creatinine Clearance 51.56 ml/min; Globulin 4.4 g/dL (2.2-4.2); Glucose 109 mg/dL (74-106); Magnesium 2.2 mg/dL (1.6-2.6); Potassium 4.1 mmol/L (3.5-5.1); Sodium Level 135 mmol/L (136-145)
[2021-10-22] MEDS: Iron Polysaccharide Complex 150 MG CAPSULE PO ×2 (07:46→16:20)
[2021-10-22] MEDS: Pentoxifylline 400 MG Tablet PO ×2 (07:47→21:52)
[2021-10-22] MEDS: Ramipril 10 MG Capsule PO (07:47)
[2021-10-22] MEDS: Metoprolol Tartrate 100 MG Tablet PO (07:49)
[2021-10-22] MEDS: hydroCHLOROthiazide 25 MG Tablet PO (07:50)
[2021-10-22] MEDS: APIXABAN 5 MG TABLET PO ×2 (07:50→21:52)
[2021-10-22] MEDS: Menthol/Lanolin/Calamine/Znox 113 GM Tube 1 APPLIC TOPICAL ×2 (07:50→21:53)
[2021-10-22] MEDS: Pantoprazole Sodium 40 MG Tablet PO (07:50)
[2021-10-22] MEDS: amLODIPine 10 MG Tablet PO (07:50)
--- NOTE | 2021-10-22 09:20 | PCM.PN.SRG ---
Subjective Subjective Tolerated full liquids, denies any abdominal pain, having bowel movements/flatus Objective Data Objective Data Vital Signs: Vital Signs Temp Pulse Resp BP Pulse Ox 97.9 F 63 16 100/74 94 10/22/21 08:16 10/22/21 09:09 10/22/21 08:16 10/22/21 08:16 10/22/21 08:16 Oxygen Flow Rate (L/min) 92 Oxygen Delivery Method Room Air Weight: 148 lb 12.992 oz Body Mass Index (BMI) 25.0 Intake & Output: Intake and Output for Last 24 Hours 10/20/21 10/21/21 10/22/21 23:59 23:59 23:59 Intake Total 2194 / 2194 2215.2 / 2465.2 400 / 400 Output Total 700 / 1300 1850 / 1850 Balance 1494 / 894 365.2 / 615.2 400 / 400 Medical Nutrition Assessment Dietitian: Malnutrition Criteria Met Start: 10/13/21 14:59 Freq: Status: Active Protocol: Document 10/21/21 11:40 ARETHA (Rec: 10/21/21 11:41 ARETHA [id number]) Nutrition Malnutrition Evidence of Malnutrition Exists Yes Malnutrition (severe): Acute Illness/Injury Evidenced By Suboptimal Energy Intake ( Severe),Weight Loss (Severe), Physical Changes (Mild) Clinical Problem Acute Disease or Injury Related Malnutrition Etiology severe, acute malnutrition r/t inadequate energy intake d/t recent hospitalizations, SBO, GI dysfunction Signs/Symptoms as evidenced by 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 Famotidine added per provider order. Will continue TPN as ordered with lipid infusion friday, friday, friday. Advance PO nutrition as medically able to Transitional Diet as tolerated. Lab / Micro Data Result Diagrams: 10/22/21 05:35 10/22/21 05:35 Labs: Laboratory Results - last 24 hr 10/21/21 11:54: POC Glucose 150 H 10/21/21 17:52: POC Glucose 123 H 10/22/21 00:19: POC Glucose 126 H 10/22/21 05:35: WBC 10.4, RBC 3.25 L, Hgb 9.5 L, Hct 29.9 L, MCV 92.0, MCH 29.2, MCHC 31.8 L, RDW Std Deviation 54.2 H, RDW Coeff of Denise 16.4 H, Plt Count 252, MPV 10.8, Immature Gran % (Auto) 0.900, Neut % (Auto) 76.0 H, Lymph % (Auto) 12.9 L, [place] % (Auto) 6.4, Eos % (Auto) 3.6, Baso % (Auto) 0.2, Absolute Neuts (auto) 7.9 H, Absolute Lymphs (auto) 1.34, Nucleated RBC % 0 10/22/21 05:35: Sodium 135 L, Potassium 4.1, Chloride 104, Carbon Dioxide 28.0, Anion Gap 3 L, BUN 25 H, Creatinine 0.58 L, Estim Creat Clear Calc 51.56, Est GFR (MDRD) Af Amer 171, Est GFR (MDRD) Non-Af 142, BUN/Creatinine Ratio 43.2 H, Glucose 109 H, Calcium 7.6 L, Magnesium 2.2, Total Bilirubin 0.30, AST 40 H, ALT 35, Alkaline Phosphatase 156 H, Total Protein 6.0 L, Albumin 1.6 L, Globulin 4.4 H, Albumin/Globulin Ratio 0.4 L 10/22/21 06:20: POC Glucose 117 H Physical Exam Narrative Ng in place Resp normal respiratory effort Cardio regular rate GI GI Narrative: Abdomen: Soft, nondistended, mild tender near incision's dressed with w-d dressing?good granulation tissue/retention sutures in place x 2, no peritoneal signs Assessment & Plan Assessment/Plan (1) S/P small bowel resection: (2) History of small bowel obstruction: PLAN: gurpreet full liquid- will advance to regular diet--continue TPN, severe malnutrition- prealb 5.4, alb 1.6 Patient needs a pre-CERT for discharge to TCU Addendum: Patient did eat well for breakfast and had no issues. Out of bed to chair, Marshall Sy IV, M.D. Pager: [phone] [facility] [address] [place] [address], [facility], [address] [place] [id number] Office: [phone]
--- NOTE | 2021-10-22 10:02 | CASEMGMT ---
Social Work Note SW in to speak with pt. SW spoke with pt about discharge plans. Pt agreeable to returning to TCU. Pt will need pre-cert. SW to update TCU. Plan: Return to TCU pending pre-cert Shayy Bowman INSULATION BOARD BACK TENDER, [employer] WORKER
--- NOTE | 2021-10-22 10:05 | WOUNDNOTE ---
wound photo: abdomen
--- NOTE | 2021-10-22 10:40 | PN.HOSP_ITS ---
Subjective Subjective Patient seen and examined. He was lying comfortably in bed and had no active complaints. Review of systems otherwise negative. He has remained hemodynamically stable. Objective Data Objective Data Vital Signs: Vital Signs Temp Pulse Resp BP Pulse Ox 97.9 F 63 16 100/74 94 10/22/21 08:16 10/22/21 09:09 10/22/21 08:16 10/22/21 08:16 10/22/21 08:16 Oxygen Flow Rate (L/min) 92 Oxygen Delivery Method Room Air Weight: 148 lb 12.992 oz Body Mass Index (BMI) 25.0 Intake & Output: Intake and Output for Last 24 Hours 10/20/21 10/21/21 10/22/21 23:59 23:59 23:59 Intake Total 2194 / 2194 2215.2 / 2465.2 400 / 400 Output Total 700 / 1300 1850 / 1850 Balance 1494 / 894 365.2 / 615.2 400 / 400 Medical Nutrition Assessment Dietitian: Malnutrition Criteria Met Start: 10/13/21 14:59 Freq: Status: Active Protocol: Document 10/21/21 11:40 SLA (Rec: 10/21/21 11:41 [facility] [id number]) Nutrition Malnutrition Evidence of Malnutrition Exists Yes Malnutrition (severe): Acute Illness/Injury Evidenced By Suboptimal Energy Intake ( Severe),Weight Loss (Severe), Physical Changes (Mild) Clinical Problem Acute Disease or Injury Related Malnutrition Etiology severe, acute malnutrition r/t inadequate energy intake d/t recent hospitalizations, SBO, GI dysfunction Signs/Symptoms as evidenced by 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 Famotidine added per provider order. Will continue TPN as ordered with lipid infusion friday, friday, friday. Advance PO nutrition as medically able to Transitional Diet as tolerated. Lab / Micro Data Result Diagrams: 10/22/21 05:35 10/22/21 05:35 Labs: Laboratory Results - last 24 hr 10/21/21 11:54: POC Glucose 150 H 10/21/21 17:52: POC Glucose 123 H 10/22/21 00:19: POC Glucose 126 H 10/22/21 05:35: WBC 10.4, RBC 3.25 L, Hgb 9.5 L, Hct 29.9 L, MCV 92.0, MCH 29.2, MCHC 31.8 L, RDW Std Deviation 54.2 H, RDW Coeff of Denise 16.4 H, Plt Count 252, MPV 10.8, Immature Gran % (Auto) 0.900, Neut % (Auto) 76.0 H, Lymph % (Auto) 12.9 L, [place] % (Auto) 6.4, Eos % (Auto) 3.6, Baso % (Auto) 0.2, Absolute Neuts (auto) 7.9 H, Absolute Lymphs (auto) 1.34, Nucleated RBC % 0 10/22/21 05:35: Sodium 135 L, Potassium 4.1, Chloride 104, Carbon Dioxide 28.0, Anion Gap 3 L, BUN 25 H, Creatinine 0.58 L, Estim Creat Clear Calc 51.56, Est GFR (MDRD) Af Amer 171, Est GFR (MDRD) Non-Af 142, BUN/Creatinine Ratio 43.2 H, Glucose 109 H, Calcium 7.6 L, Magnesium 2.2, Total Bilirubin 0.30, AST 40 H, ALT 35, Alkaline Phosphatase 156 H, Total Protein 6.0 L, Albumin 1.6 L, Globulin 4.4 H, Albumin/Globulin Ratio 0.4 L 10/22/21 06:20: POC Glucose 117 H Physical Exam Const alert, oriented x3 and no apparent distress Exam Limitations: no limitations HEENT head/scalp atraumatic and moist oral mucous membranes Head and Scalp: normocephalic Eyes PERRL, EOMs intact bilaterally and conjunctivae normal Neck no lymphadenopathy, supple and no JVD Resp normal respiratory effort, no retractions, no use of accessory muscles and clear to auscultation bilaterally Cardio regular rate, regular rhythm, S1 normal heart sound, S2 normal heart sound and no murmurs GI normal to inspection, nondistended, normoactive bowel sounds and soft to palpation GI Narrative: Intact dressing over surgical site. Extremity normal to inspection, full ROM and no clubbing, cyanosis or edema Peripheral Pulses: Yes pulses 2+ throughout Skin no rashes or lesions noted Neuro oriented x3, CN's II-XII intact bilaterally and moves all extremities Sensorium / Orientation: awake and alert Psych affect normal Assessment & Plan Assessment/Plan (1) Ischemic necrosis of small bowel: (2) S/P small bowel resection: (3) Adynamic ileus: (4) History of small bowel obstruction: PLAN: #Acute small bowel obstruction with gangrene of the jejenum * s/p small bowel resection with anastomosis * he had 60cm of jejunum removed * diet advanced per general surgery to regular today. * on TPN; will renew * on IV morphine prn for pain * completed a course of IV zosyn. * General surgery on board. * #Chronic periprosthetic fracture of left proximal femur s/p total hip replacement * PT/PT on board. * fall precautions * to follow up with orthopedic surgery on outpatient basis * #Paroxysmal afib * on eliquis and metoprolol * * # #CKD stage IIIa: stable. Positive balance by 11.2 L. Will give a dose of IV lasix. On room air. #CAD s/p CABG: Blood pressure medications. On statin #Hyper lipidemia: On statin #Hypertension: On metoprolol and hydrochlorothiazide as well as amlodipine and ramipril #GERD: On PPI #Severe protein calorie malnutrition: Diet now advanced to regular diet. On TPN as well. Dietitian on board. DVT prophylaxis: Lovenox Charges/Coding Visit Charges Inpatient E&M: 77723 Subs Hosp L2
[2021-10-22 11:11] LABS: Bedside Glucose 136 mg/dL (70-110)
[2021-10-22] MEDS: Furosemide 40 MG/4 ML Vial IV (11:59)
[2021-10-22] MEDS: 0.9% Saline Lock 10 ML Syringe IV (11:59)
--- NOTE | 2021-10-22 13:14 | CASEMGMT ---
Social Work Note SW spoke with Binta with TCU, pre-cert to be submitted. Plan: Return to TCU pending pre-cert Shayy Bowman STITCH BONDING MACHINE TENDER HELPER, [employer]ICE FARMER
[2021-10-22] MEDS: Fat Emulsions 20% 250 ML IV (15:22)
[2021-10-22 16:16] LABS: Bedside Glucose 156 mg/dL (70-110)
[2021-10-22] MEDS: Atorvastatin Calcium 40 MG Tablet PO (21:52)
[2021-10-23] VITALS (10 sets, daily range): BP systolic 100–118; BP diastolic 43–75; PULSE 56–91; RESP 16–18; TEMP 36.4–37; O2SAT 92–97
[2021-10-23 01:25] LABS: Bedside Glucose 115 mg/dL (70-110)
[2021-10-23 05:51] LABS: Absolute Lymphocyte Count 1.38 X10^3/uL (0.83-4.51); Absolute Neutrophil Count 8.2 X10^3/uL (2.0-7.7); Basophil# 0.03 X10^3/uL; Basophil% 0.3 % (0-1); Eosinophils% 3.7 % (0-5); Hematocrit 26.2 % (40-54); Hemoglobin 8.4 g/dL (13.0-16.5); Lymphocyte # 1.38 X10^3/ul (0.83-4.51); Lymphocyte % 12.8 % (19-41); Mean Corp Hgb Conc 32.1 g/dL (32-36); Mean Corpuscular Hgb 29.3 pg (27.0-32.0); Mean Corpuscular Volume 91.3 fL (80-94); Mean Platelet Vol. 10.7 fl (6.2-12.0); Monocyte# 0.66 X10^3/uL; Monocyte% 6.1 % (0-10); NRBC Flagged by Analyzer 0 % (0-5); Neutrophil # 8.23 X10^3/uL (2.7-7.7); Neutrophil % 76.3 % (47-70); Platelet Count 250 K/mm3 (150-450); RBC Distribution Width CV 16.4 % (11.6-14.6); Red Blood Count 2.87 M/mm3 (4.6-6.2); White Blood Count 10.8 K/mm3 (4.4-11.0)
[2021-10-23 06:32] LABS: ALB/GLOB Ratio 0.4 RATIO (0.9-2.4); AST(SGOT) 35 U/L (15-37); Alanine Aminotransfer ALT/SGPT 35 U/L (16-61); Albumin, Serum 1.6 g/dL (3.2-5.0); Alkaline Phosphatase 145 U/L (45-117); Anion Gap 5 (5-15); BUN 27 mg/dL (7-18); BUN/Creat Ratio 42.1 RATIO (10-20); Calcium,Total 7.7 mg/dL (8.5-10.1); Chloride 103 mmol/L (98-107); Creatinine, Serum 0.64 mg/dL (0.70-1.30); EST Glomerular Filtration Rate 126 mL/min (>60); Est Glom Filt Rate - Afr Amer 152 mL/min (>60); Estimated Creatinine Clearance 51.56 ml/min; Globulin 4.4 g/dL (2.2-4.2); Glucose 112 mg/dL (74-106); Sodium Level 137 mmol/L (136-145)
[2021-10-23 06:45] LABS: Bedside Glucose 109 mg/dL (70-110)
--- NOTE | 2021-10-23 08:17 | PCM.PN.SRG ---
Subjective Subjective Patient tolerating a regular diet but states he gets full easily. Patient denies any abdominal pain Objective Data Objective Data Vital Signs: Vital Signs Temp Pulse Resp BP Pulse Ox 98.2 F 58 L 18 115/53 L 93 10/23/21 03:06 10/23/21 03:06 10/23/21 03:06 10/23/21 03:06 10/23/21 03:06 Oxygen Flow Rate (L/min) 92 Oxygen Delivery Method Room Air Weight: 149 lb 0.52 oz Body Mass Index (BMI) 25.0 Intake & Output: Intake and Output for Last 24 Hours 10/21/21 10/22/21 10/23/21 23:59 23:59 23:59 Intake Total 2215.2 / 2465.2 2878.2 / 3078.2 650 / 650 Output Total 1850 / 1850 600 / 800 200 / 200 Balance 365.2 / 615.2 2278.2 / 2278.2 450 / 450 Medical Nutrition Assessment Dietitian: Malnutrition Criteria Met Start: 10/13/21 14:59 Freq: Status: Active Protocol: Document 10/22/21 12:04 ARETHA (Rec: 10/22/21 12:04 ARETHA [id number]) Nutrition Malnutrition Evidence of Malnutrition Exists Yes Malnutrition (severe): Acute Illness/Injury Evidenced By Suboptimal Energy Intake ( Severe),Weight Loss (Severe), Physical Changes (Mild) Clinical Problem Acute Disease or Injury Related Malnutrition Etiology severe, acute malnutrition r/t inadequate energy intake d/t recent hospitalizations, SBO, GI dysfunction Signs/Symptoms as evidenced by 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 Famotidine added per provider order. Will continue TPN as ordered with lipid infusion friday, friday, friday. Change diet PO nutrition as medically able to Transitional Diet as tolerated. Lab / Micro Data Result Diagrams: 10/23/21 05:30 10/23/21 05:30 Labs: Laboratory Results - last 24 hr 10/22/21 10:50: POC Glucose 136 H 10/22/21 16:11: POC Glucose 156 H 10/23/21 00:53: POC Glucose 115 H 10/23/21 05:30: WBC 10.8, RBC 2.87 L, Hgb 8.4 L, Hct 26.2 L, MCV 91.3, MCH 29.3, MCHC 32.1, RDW Std Deviation 54.0 H, RDW Coeff of Denise 16.4 H, Plt Count 250, MPV 10.7, Immature Gran % (Auto) 0.800, Neut % (Auto) 76.3 H, Lymph % (Auto) 12.8 L, [place] % (Auto) 6.1, Eos % (Auto) 3.7, Baso % (Auto) 0.3, Absolute Neuts (auto) 8.2 H, Absolute Lymphs (auto) 1.38, Nucleated RBC % 0 10/23/21 05:30: Sodium 137, Potassium 4.0, Chloride 103, Carbon Dioxide 29.0, Anion Gap 5, BUN 27 H, Creatinine 0.64 L, Estim Creat Clear Calc 51.56, Est GFR (MDRD) Af Amer 152, Est GFR (MDRD) Non-Af 126, BUN/Creatinine Ratio 42.1 H, Glucose 112 H, Calcium 7.7 L, Total Bilirubin 0.20, AST 35, ALT 35, Alkaline Phosphatase 145 H, Total Protein 6.0 L, Albumin 1.6 L, Globulin 4.4 H, Albumin/Globulin Ratio 0.4 L 10/23/21 06:31: POC Glucose 109 Physical Exam Narrative Ng in place Resp normal respiratory effort Cardio regular rate GI GI Narrative: Abdomen: Soft, nondistended, mild tender near incision's dressed with w-d dressing?good granulation tissue/retention sutures in place x 2, no peritoneal signs Assessment & Plan Assessment/Plan (1) S/P small bowel resection: (2) History of small bowel obstruction: PLAN: tolregular diet--continue TPN, severe malnutrition- prealb 5.4, alb 1.6 Patient needs a pre-CERT for discharge to TCU Out of bed to chair, eliquis, Protonix Patient did have a small left shift with a normal white blood cell count, continue to monitor. Justyna Denney M.D. Pager: [phone] [facility] [address] [place] [address], [address] [place] [address] Office: [phone]
[2021-10-23] MEDS: Iron Polysaccharide Complex 150 MG CAPSULE PO ×2 (08:33→15:59)
[2021-10-23] MEDS: hydroCHLOROthiazide 25 MG Tablet PO (10:17)
[2021-10-23] MEDS: Metoprolol Tartrate 100 MG Tablet PO (10:17)
[2021-10-23] MEDS: amLODIPine 10 MG Tablet PO (10:17)
[2021-10-23] MEDS: Pantoprazole Sodium 40 MG Tablet PO (10:20)
[2021-10-23] MEDS: Ramipril 10 MG Capsule PO (10:20)
[2021-10-23] MEDS: APIXABAN 5 MG TABLET PO ×2 (10:20→22:37)
[2021-10-23] MEDS: Menthol/Lanolin/Calamine/Znox 113 GM Tube 1 APPLIC TOPICAL (10:30)
[2021-10-23] MEDS: Pentoxifylline 400 MG Tablet PO ×2 (10:36→22:37)
--- NOTE | 2021-10-23 10:42 | NS ---
Calorie Count started 10/23/[address] Denney. Please keep purple patient menus in room for dietitian to collect. Please indicate percentage of foods consumed on each menu. Call inpatient dietitian at [phone] with questions. Leighann Riddle MS, RDN, LD
--- NOTE | 2021-10-23 10:53 | CASEMGMT ---
Social Work Phone call to Yuki in TCU to check on precert. Precert was submitted yesterday but has not yet been obtained. Will continue to await insurance preauthorization. Plan: [facility], pending JOSE Mejia
[2021-10-23 11:55] LABS: Bedside Glucose 159 mg/dL (70-110)
--- NOTE | 2021-10-23 13:54 | PN.HOSP_ITS ---
Subjective Subjective Patient seen and examined. He had no active complaints and had an uneventful night. REview of systems is otherwise negative. He remains on TPN, and is awaiting placement. Objective Data Objective Data Vital Signs: Vital Signs Temp Pulse Resp BP Pulse Ox 97.6 F L 71 16 118/75 96 10/23/21 08:25 10/23/21 10:17 10/23/21 08:25 10/23/21 10:17 10/23/21 10:49 Oxygen Flow Rate (L/min) 92 Oxygen Delivery Method Room Air Weight: 149 lb 0.52 oz Body Mass Index (BMI) 25.0 Intake & Output: Intake and Output for Last 24 Hours 10/21/21 10/22/21 10/23/21 23:59 23:59 23:59 Intake Total 2215.2 / 2465.2 2878.2 / 3078.2 900 / 900 Output Total 1850 / 1850 600 / 800 200 / 200 Balance 365.2 / 615.2 2278.2 / 2278.2 700 / 700 Medical Nutrition Assessment Dietitian: Malnutrition Criteria Met Start: 10/13/21 14:59 Freq: Status: Active Protocol: Document 10/23/21 10:45 AG (Rec: 10/23/21 13:40 AG [id number]) Nutrition Malnutrition Evidence of Malnutrition Exists Yes Malnutrition (severe): Acute Illness/Injury Evidenced By Suboptimal Energy Intake ( Severe),Weight Loss (Severe), Physical Changes (Mild) Clinical Problem Acute Disease or Injury Related Malnutrition Etiology severe, acute malnutrition r/t inadequate energy intake d/t recent hospitalizations, SBO, GI dysfunction Signs/Symptoms as evidenced by unintentional 22.9#/12.5% wt loss x 2 months [employer]; 5kg/6.9% wt loss since ; 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 Calorie count started 10/23/21, will have results in tomorrow's documentation. 2) Recommend continue TPN until adequate PO intake is confirmed. For Day #8 TPN, recommend 1L 8%AA/14% dextrose solution to provide 798 calories, 80 g protein. 3) Continue Ensure Enlive 120mL 4x/day w/ medpass. 4) Continue daily wts. Lab / Micro Data Result Diagrams: 10/23/21 05:30 10/23/21 05:30 Labs: Laboratory Results - last 24 hr 10/22/21 16:11: POC Glucose 156 H 10/23/21 00:53: POC Glucose 115 H 10/23/21 05:30: WBC 10.8, RBC 2.87 L, Hgb 8.4 L, Hct 26.2 L, MCV 91.3, MCH 29.3, MCHC 32.1, RDW Std Deviation 54.0 H, RDW Coeff of Denise 16.4 H, Plt Count 250, MPV 10.7, Immature Gran % (Auto) 0.800, Neut % (Auto) 76.3 H, Lymph % (Auto) 12.8 L, [place] % (Auto) 6.1, Eos % (Auto) 3.7, Baso % (Auto) 0.3, Absolute Neuts (auto) 8.2 H, Absolute Lymphs (auto) 1.38, Nucleated RBC % 0 10/23/21 05:30: Sodium 137, Potassium 4.0, Chloride 103, Carbon Dioxide 29.0, An ion Gap 5, BUN 27 H, Creatinine 0.64 L, Estim Creat Clear Calc 51.56, Est GFR (MDRD) Af Amer 152, Est GFR (MDRD) Non-Af 126, BUN/Creatinine Ratio 42.1 H, Glucose 112 H, Calcium 7.7 L, Total Bilirubin 0.20, AST 35, ALT 35, Alkaline Phosphatase 145 H, Total Protein 6.0 L, Albumin 1.6 L, Globulin 4.4 H, Albumin/Globulin Ratio 0.4 L 10/23/21 06:31: POC Glucose 109 10/23/21 11:44: POC Glucose 159 H Physical Exam Const alert, oriented x3 and no apparent distress General Appearance: cooperative Exam Limitations: no limitations HEENT normocephalic, head/scalp atraumatic and moist oral mucous membranes; Negative for hearing grossly normal bilaterally Head and Scalp: normocephalic Eyes PERRL, EOMs intact bilaterally and conjunctivae normal Eyes Narrative: No scleral icterus Neck no lymphadenopathy, supple, no JVD and no carotid bruits Resp normal respiratory effort, no retractions, no use of accessory muscles and clear to auscultation bilaterally Auscultation: Negative for crackles, rales, rhonchi or wheezes Cardio regular rate, regular rhythm, S1 normal heart sound, S2 normal heart sound, no murmurs, no rub, no gallops, no clicks and no JVD GI normal to inspection, nondistended, normoactive bowel sounds, soft to palpation, non-tender and non-distended GI Narrative: Intact dressing over surgical site. 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 * General surgery on board. 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 * fall precautions * to follow up with orthopedic surgery on outpatient basis * #Paroxysmal afib * on eliquis and metoprolol * * # #CKD stage IIIa: stable. Positive balance by 13.77 L. Patient doesnt look clinically overloaded at all and is stable on room air. #CAD s/p CABG: Blood pressure medications. On statin #Hyper lipidemia: On statin #Hypertension: On metoprolol and hydrochlorothiazide as well as amlodipine and ramipril #GERD: On PPI #Severe protein calorie malnutrition: On regular diet. calorie count being done today. On TPN as well. Dietitian on board. DVT prophylaxis: Lovenox Disposition: awaiting placement Charges/Coding Visit Charges Inpatient E&M: 36725 Subs Hosp L2
--- NOTE | 2021-10-23 14:54 | CASEMGMT ---
Social Work Note MARGOTH received message from Yuki with TCU stating pre-cert has been obtained. Pt can return to TCU tomorrow. MARGOTH updated physician. Plan: TCU skilled tomorrow Shayy Bowman MSW, MECHATRONICS TECHNICIAN
[2021-10-23] MEDS: 0.9% Saline Lock 10 ML Syringe IV (15:45)
[2021-10-23] MEDS: TPN - Clinimix E 8%-14% Soln 2,000 ML with Multivitamins 10 ML, Trace Elements 1 ML, Fo... 42 ML IV (15:47)
[2021-10-23] MEDS: Acetaminophen 325 MG Tablet 650 MG PO (17:34)
[2021-10-23 18:11] LABS: Bedside Glucose 119 mg/dL (70-110)
[2021-10-23] MEDS: Atorvastatin Calcium 40 MG Tablet PO (22:37)
[2021-10-24] VITALS (10 sets, daily range): BP systolic 98–134; BP diastolic 44–67; PULSE 56–79; RESP 16–18; TEMP 36.6–37.3; O2SAT 92–96
[2021-10-24 02:23] LABS: Bedside Glucose 135 mg/dL (70-110)
[2021-10-24 06:01] LABS: Absolute Lymphocyte Count 1.21 X10^3/uL (0.83-4.51); Absolute Neutrophil Count 12.6 X10^3/uL (2.0-7.7); Basophil# 0.05 X10^3/uL; Basophil% 0.3 % (0-1); Eosinophil# 0.33 X10^3/uL; Eosinophils% 2.2 % (0-5); Hematocrit 31.1 % (40-54); Hemoglobin 9.9 g/dL (13.0-16.5); Lymphocyte # 1.21 X10^3/ul (0.83-4.51); Lymphocyte % 7.9 % (19-41); Mean Corp Hgb Conc 31.8 g/dL (32-36); Mean Corpuscular Hgb 29.1 pg (27.0-32.0); Mean Corpuscular Volume 91.5 fL (80-94); Mean Platelet Vol. 11.2 fl (6.2-12.0); Monocyte# 0.94 X10^3/uL; Monocyte% 6.2 % (0-10); NRBC Flagged by Analyzer 0 % (0-5); Neutrophil # 12.58 X10^3/uL (2.7-7.7); Neutrophil % 82.6 % (47-70); Platelet Count 333 K/mm3 (150-450); RBC Distribution Width CV 16.6 % (11.6-14.6); RBC Distribution Width SD 55.3 fl (35.1-43.9); White Blood Count 15.2 K/mm3 (4.4-11.0)
[2021-10-24 06:33] LABS: ALB/GLOB Ratio 0.4 RATIO (0.9-2.4); AST(SGOT) 29 U/L (15-37); Alanine Aminotransfer ALT/SGPT 33 U/L (16-61); Albumin, Serum 1.8 g/dL (3.2-5.0); Alkaline Phosphatase 154 U/L (45-117); Anion Gap 5 (5-15); BUN 29 mg/dL (7-18); Calcium,Total 8.4 mg/dL (8.5-10.1); Chloride 105 mmol/L (98-107); Creatinine, Serum 0.71 mg/dL (0.70-1.30); EST Glomerular Filtration Rate 112 mL/min (>60); Est Glom Filt Rate - Afr Amer 136 mL/min (>60); Estimated Creatinine Clearance 54.01 ml/min; Globulin 4.6 g/dL (2.2-4.2); Glucose 103 mg/dL (74-106); Potassium 4.1 mmol/L (3.5-5.1); Protein, Total 6.4 g/dL (6.4-8.2); Sodium Level 137 mmol/L (136-145)
[2021-10-24 06:51] LABS: Bedside Glucose 115 mg/dL (70-110)
[2021-10-24] MEDS: amLODIPine 10 MG Tablet PO (08:16)
[2021-10-24] MEDS: Metoprolol Tartrate 100 MG Tablet PO (08:16)
[2021-10-24] MEDS: Pantoprazole Sodium 40 MG Tablet PO (08:16)
[2021-10-24] MEDS: Pentoxifylline 400 MG Tablet PO ×2 (08:16→21:13)
[2021-10-24] MEDS: Menthol/Lanolin/Calamine/Znox 113 GM Tube 1 APPLIC TOPICAL ×2 (08:17→21:13)
[2021-10-24] MEDS: APIXABAN 5 MG TABLET PO ×2 (08:17→21:13)
[2021-10-24] MEDS: Ramipril 10 MG Capsule PO (08:17)
[2021-10-24] MEDS: hydroCHLOROthiazide 25 MG Tablet PO (08:17)
[2021-10-24] MEDS: Iron Polysaccharide Complex 150 MG CAPSULE PO ×2 (08:17→17:28)
[2021-10-24] MEDS: Furosemide 40 MG/4 ML Vial IV (09:25)
--- NOTE | 2021-10-24 09:50 | PN.SURG_ITS ---
Subjective Subjective Increased leukocytosis to 15. Patient did complain of some burning UA was sent?initial UA looks clean. Patient did eat all of his breakfast this morning. Patient also had diarrhea today. Objective Data Objective Data Vital Signs: Vital Signs Temp Pulse Resp BP Pulse Ox 98.5 F 69 16 134/51 H 93 10/24/21 08:08 10/24/21 08:16 10/24/21 08:08 10/24/21 08:16 10/24/21 08:08 Oxygen Flow Rate (L/min) 92 Oxygen Delivery Method Room Air Weight: 155 lb 13.869 oz Body Mass Index (BMI) 25.0 Intake & Output: Intake and Output for Last 24 Hours 10/22/21 10/23/21 10/24/21 23:59 23:59 23:59 Intake Total 2878.2 / 3078.2 3165.2 / 3365.2 500 / 500 Output Total 600 / 800 200 / 650 650 / 650 Balance 2278.2 / 2278.2 2965.2 / 2715.2 -150 / -150 Medical Nutrition Assessment Dietitian: Malnutrition Criteria Met Start: 10/13/21 14:59 Freq: Status: Active Protocol: Document 10/24/21 08:45 AG (Rec: 10/24/21 08:45 AG [id number]) Nutrition Malnutrition Evidence of Malnutrition Exists Yes Malnutrition (severe): Acute Illness/Injury Evidenced By Suboptimal Energy Intake ( Severe),Weight Loss (Severe), Physical Changes (Mild) Clinical Problem Acute Disease or Injury Related Malnutrition Etiology severe, acute malnutrition r/t inadequate energy intake d/t recent hospitalizations, SBO, GI dysfunction Signs/Symptoms as evidenced by unintentional 22.9#/12.5% wt loss x 2 months [employer]; 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 Calorie count started 10/23/21, will continue per physician order. 2) Recommend continue TPN until adequate PO intake is confirmed. For Day #9 TPN, recommend 1L 8%AA/14% dextrose solution to provide 798 calories, 80 g protein. 3) Continue Ensure Enlive 120mL 4x/day w/ medpass. 4) Continue daily wts. Lab / Micro Data Result Diagrams: 10/24/21 04:25 10/24/21 04:25 Labs: Laboratory Results - last 24 hr 10/23/21 11:44: POC Glucose 159 H 10/23/21 17:50: POC Glucose 119 H 10/24/21 00:49: POC Glucose 135 H 10/24/21 04:25: WBC 15.2 H, RBC 3.40 L, Hgb 9.9 L, Hct 31.1 L, MCV 91.5, MCH 29.1, MCHC 31.8 L, RDW Std Deviation 55.3 H, RDW Coeff of Denise 16.6 H, Plt Count 333, MPV 11.2, Immature Gran % (Auto) 0.800, Neut % (Auto) 82.6 H, Lymph % (Au to) 7.9 L, [place] % (Auto) 6.2, Eos % (Auto) 2.2, Baso % (Auto) 0.3, Absolute N euts (auto) 12.6 H, Absolute Lymphs (auto) 1.21, Nucleated RBC % 0 10/24/21 04:25: Sodium 137, Potassium 4.1, Chloride 105, Carbon Dioxide 27.0, Anion Gap 5, BUN 29 H, Creatinine 0.71, Estim Creat Clear Calc 54.01, Est GFR (MDRD) Af Amer 136, Est GFR (MDRD) Non-Af 112, BUN/Creatinine Ratio 41.0 H, Glucose 103, Calcium 8.4 L, Total Bilirubin 0.40, AST 29, ALT 33, Alkaline Phosphatase 154 H, Total Protein 6.4, Albumin 1.8 L, Globulin 4.6 H, Albumin/Globulin Ratio 0.4 L 10/24/21 06:40: POC Glucose 115 H Physical Exam Narrative Ng in place Resp normal respiratory effort Cardio regular rate GI GI Narrative: Abdomen: Soft, nondistended, mild tender near incision's dressed with w-d dressing?good granulation tissue/retention sutures in place x 2, no peritoneal signs Assessment & Plan Assessment/Plan (1) S/P small bowel resection: (2) History of small bowel obstruction: PLAN: gurpreet regular diet--continue TPN, severe malnutrition- prealb 5.4, alb 1.6 Increased leukocytosis to 15 UA has been checked also order CT abdomen pelvis with p.o. and IV contrast and started Zosyn. Patient does not complain of much abdominal pain however prior to surgery with necrotic bowel he also did not complain of a lot of abdominal pain. Out of bed to chair, Marshall matthews M.D. Pager: [phone] [facility] [address] [place] [address], [facility], [address] [place] [address] Office: [phone]
--- NOTE | 2021-10-24 09:51 | CT_ITS ---
STUDY: CT ABDOMEN AND PELVIS WITH CONTRAST REASON FOR EXAM: Male, 86 years old. Leukocytosis, abd pain -- po-gastrografin and IV RADIATION DOSAGE (If Supplied By Facility): CTDIvol = ( 17.56 ) mGy, DLP = ( 1066.73 ) mGycm TECHNIQUE: Transaxial images were obtained from the dome of the diaphragm to the symphysis pubis with oral contrast. Oral and amp; IV Gastrografin and amp; 100mL Isovue-300 was administered. Sagittal and coronal images were reconstructed. Individualized dose optimization techniques were used for this CT. COMPARISON: Comparison is made with prior examination dated 10/13/2021. FINDINGS: New small left pleural effusion with left basilar infiltrate. Minimal right pleural effusion with increased markings at the right lung base. Coronary artery calcification. Normal liver. Mild distention of the gallbladder. Increased density at the base of the gallbladder suggestive of either sludge or tiny gallstones. Normal spleen. Normal pancreas. Normal bilateral adrenal glands. There is a 3.2 cm x 3.2 cm cyst in the anterior upper pole of the right kidney. There is a 1.1 cm cyst in the posterior medial aspect of the right kidney. There is a 9.4 mm nonobstructive calculus in the upper pole calyx of the left kidney. A 3 mm calculus is also seen in the lower pole calyx of the left kidney. Normal visualized stomach. Normal small intestine. There is diffuse circumferential wall thickening of the rectosigmoid colon with increased markings in the surrounding peritoneal fat. This is suggestive of a colitis. There is a 3.5 cm x 5.3 cm fluid collection the cul-de-sac. The appendix is visualized and appears normal. There is diffuse atherosclerotic calcification of the abdominal aorta and its major visceral branches, without a demonstrated aneurysm. Normal inferior vena cava. Normal retroperitoneum. An air-fluid level is seen within the bladder. If there has been catheterization with a GARCIA catheter and this is a normal finding otherwise a colovesical fistula should be ruled out. Normal abdominal wall. There are diffuse degenerative changes of the visualized lumbar spine. Status post bilateral hip replacement. CT/Abdomen/Pelvis WITH Contrast IMPRESSION: Findings suggestive of colitis involving the rectosigmoid colon with a well circumscribed fluid collection in the cul-de-sac as described. Distended gallbladder with findings suggestive of a tiny gallstones or sludge in the gallbladder lumen at the level of the neck of the gallbladder. Bilateral pleural effusions with bibasilar atelectasis and/or infiltrate worse on the left side. Stable bilateral renal cysts. Electronically Signed: Porter Singh MD at 13:43 EST ,
[2021-10-24 09:58] LABS: Bacteria 0 SEEN /hpf (None Seen); Mucous, Urine 0 SEEN /hpf (<or=2+); Red Blood Cells-Urine 0 SEEN /hpf (0-5)
[2021-10-24 09:59] LABS: White Blood Cells 0 SEEN /hpf (0-5)
[2021-10-24 10:01] LABS: Color, Urine Yellow (Yellow); Glucose, Dipstick Normal (Normal); Ketone-Dipstick Negative (Negative); Leukocyte Esterase-Dipstick Negative /ul (Negative); Nitrite-Dipstick Negative (Negative); Occult Blood-Urine Negative /ul (Negative); Protein-Dipstick Negative (Negative); Urine Bilirubin Dipstick Negative (Negative); Urine Clarity Clear (Clear); Urine Urobilinogen Normal (Normal); Urine pH 6.5 (5.0 - 8.0)
--- NOTE | 2021-10-24 10:05 | CASEMGMT ---
Social Work Note Pt to discharge to TCU today. MARGOTH spoke with Yuki with TCU and updated her. Pt will need COVID test. Plan: TCU today Shayy Bowman RN REHAB, DIRECTOR OF BANDS
[2021-10-24 10:09] LABS: Squamous Epithelial Cells - UA 0-5 SEEN /hpf (0-5)
--- NOTE | 2021-10-24 10:36 | PN.HOSP_ITS ---
Subjective Subjective Patient seen and examined. He complains of burning with urination. He also complained of some pain with having a bowel movement. He denied any chest pain, palpitations, dizziness, nausea or vomiting. Review of systems is otherwise negative. Objective Data Objective Data Vital Signs: Vital Signs Temp Pulse Resp BP Pulse Ox 98.5 F 69 16 134/51 H 93 10/24/21 08:08 10/24/21 08:16 10/24/21 08:08 10/24/21 08:16 10/24/21 08:08 Oxygen Flow Rate (L/min) 92 Oxygen Delivery Method Room Air Weight: 155 lb 13.869 oz Body Mass Index (BMI) 25.0 Intake & Output: Intake and Output for Last 24 Hours 10/22/21 10/23/21 10/24/21 23:59 23:59 23:59 Intake Total 2878.2 / 3078.2 3165.2 / 3365.2 500 / 500 Output Total 600 / 800 200 / 650 900 / 900 Balance 2278.2 / 2278.2 2965.2 / 2715.2 -400 / -400 Medical Nutrition Assessment Dietitian: Malnutrition Criteria Met Start: 10/13/21 14:59 Freq: Status: Active Protocol: Document 10/24/21 08:45 AG (Rec: 10/24/21 08:45 [id number]) Nutrition Malnutrition Evidence of Malnutrition Exists Yes Malnutrition (severe): Acute Illness/Injury Evidenced By Suboptimal Energy Intake ( Severe),Weight Loss (Severe), Physical Changes (Mild) Clinical Problem Acute Disease or Injury Related Malnutrition Etiology severe, acute malnutrition r/t inadequate energy intake d/t recent hospitalizations, SBO, GI dysfunction Signs/Symptoms as evidenced by unintentional 22.9#/12.5% wt loss x 2 months [employer]; 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 Calorie count started 10/23/21, will continue per physician order. 2) Recommend continue TPN until adequate PO intake is confirmed. For Day #9 TPN, recommend 1L 8%AA/14% dextrose solution to provide 798 calories, 80 g protein. 3) Continue Ensure Enlive 120mL 4x/day w/ medpass. 4) Continue daily wts. Lab / Micro Data Result Diagrams: 10/24/21 04:25 10/24/21 04:25 Labs: Laboratory Results - last 24 hr 10/23/21 11:44: POC Glucose 159 H 10/23/21 17:50: POC Glucose 119 H 10/24/21 00:49: POC Glucose 135 H 10/24/21 04:25: WBC 15.2 H, RBC 3.40 L, Hgb 9.9 L, Hct 31.1 L, MCV 91.5, MCH 29.1, MCHC 31.8 L, RDW Std Deviation 55.3 H, RDW Coeff of Denise 16.6 H, Plt Count 333, MPV 11.2, Immature Gran % (Auto) 0.800, Neut % (Auto) 82.6 H, Lymph % (Auto) 7.9 L, [place] % (Auto) 6.2, Eos % (Auto) 2.2, Baso % (Auto) 0.3, Absolute Neuts (auto) 12.6 H, Absolute Lymphs (auto) 1.21, Nucleated RBC % 0 10/24/21 04:25: Sodium 137, Potassium 4.1, Chloride 105, Carbon Dioxide 27.0, Anion Gap 5, BUN 29 H, Creatinine 0.71, Estim Creat Clear Calc 54.01, Est GFR (MDRD) Af Amer 136, Est GFR (MDRD) Non-Af 112, BUN/Creatinine Ratio 41.0 H, Glucose 103, Calcium 8.4 L, Total Bilirubin 0.40, AST 29, ALT 33, Alkaline Phosphatase 154 H, Total Protein 6.4, Albumin 1.8 L, Globulin 4.6 H, Albumin/Globulin Ratio 0.4 L 10/24/21 06:40: POC Glucose 115 H 10/24/21 09:58: Urine Color Yellow, Urine Clarity Clear, Urine pH 6.5, Ur Spec ific [place] 1.010, Urine Protein Negative, Urine Glucose (UA) Normal, Urine Ketones Negative, Urine Occult Blood Negative, Urine Nitrite Negative, Urine Bilirubin Negative, Urine Urobilinogen Normal, Ur Leukocyte Esterase Negative, Urine RBC 0 SEEN, Urine WBC 0 SEEN, Ur Squamous Epith Cells 0-5 SEEN, Urine Bacteria 0 SEEN, Urine Mucus 0 SEEN Physical Exam Const alert, oriented x3 and no apparent distress General Appearance: cooperative Exam Limitations: no limitations HEENT normocephalic, head/scalp atraumatic and moist oral mucous membranes; Negative for hearing grossly normal bilaterally Head and Scalp: normocephalic Eyes PERRL, EOMs intact bilaterally and conjunctivae normal Eyes Narrative: No scleral icterus Neck no lymphadenopathy, supple, no JVD and no carotid bruits Resp normal respiratory effort, no retractions, no use of accessory muscles and clear to auscultation bilaterally Auscultation: Negative for crackles, rales, rhonchi or wheezes Cardio regular rate, regular rhythm, S1 normal heart sound, S2 normal heart sound, no murmurs, no rub, no gallops, no clicks and no JVD GI normal to inspection, nondistended, normoactive bowel sounds, soft to palpation, non-tender and non-distended GI Narrative: Intact dressing over surgical site. 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 Will need to continue TPN in TCU after discharge * on IV morphine prn for pain * completed a course of IV zosyn. * General surgery on board. * on oral diet as well * #Dysuria * wbc is up to 15 toay. patient also complaining of dysuria * UA ordered; general surgery added on IV zosyn * await UA results * #Chronic periprosthetic fracture of left proximal femur s/p total hip rep lacement * PT/PT on board. * fall precautions * to follow up with orthopedic surgery on outpatient basis * #Paroxysmal afib * on eliquis and metoprolol * * # #CKD stage IIIa: * stable. Positive balance by 15.6L today * Patient doesnt look clinically overloaded at all and is stable on room air. * I'lll give a dose of lasix today as he has a few crackles bibasally. #CAD s/p CABG: Blood pressure medications. On statin #Hyper lipidemia: On statin #Hypertension: On metoprolol and hydrochlorothiazide as well as amlodipine and ramipril #GERD: On PPI #Severe protein calorie malnutrition: On regular diet. On TPN as well. Dietitian on board. DVT prophylaxis: Lovenox Disposition: awaiting placement Charges/Coding Visit Charges Inpatient E&M: 45883 Subs Hosp L2
[2021-10-24] MEDS: Piperacil/Tazobactam 3.375 GM Q8 PREMIX IV ×2 (11:24→17:28)
[2021-10-24 11:41] LABS: Bedside Glucose 160 mg/dL (70-110)
--- NOTE | 2021-10-24 13:57 | CASEMGMT ---
Social Work Note SW updated that pt will not be discharged to TCU today now. MARGOTH updated Yuki with TCU. Pt can still discharge to TCU tomorrow and pre-cert will still be good. Plan: TCU when medically cleared Shayy Bowman MSW, DIRECTOR CAREER SERVICES
[2021-10-24] MEDS: TPN - Clinimix E 8%-14% Soln 2,000 ML with Multivitamins 10 ML, Trace Elements 1 ML, Fo... 42 ML IV (16:12)
[2021-10-24 17:46] LABS: Bedside Glucose 118 mg/dL (70-110)
[2021-10-24] MEDS: Atorvastatin Calcium 40 MG Tablet PO (21:13)
[2021-10-24 23:31] LABS: Bedside Glucose 138 mg/dL (70-110)
[2021-10-25] VITALS (21 sets, daily range): BP systolic 98–155; BP diastolic 34–97; PULSE 28–122; RESP 16–31; TEMP 36.6–37.4; O2SAT 88–98; BMI 21.9
[2021-10-25] MEDS: Piperacil/Tazobactam 3.375 GM Q8 PREMIX IV ×3 (01:29→18:15)
[2021-10-25 05:41] LABS: Bedside Glucose 136 mg/dL (70-110)
[2021-10-25 06:30] LABS: Absolute Lymphocyte Count 0.87 X10^3/uL (0.83-4.51); Absolute Neutrophil Count 16.2 X10^3/uL (2.0-7.7); Basophil# 0.05 X10^3/uL; Basophil% 0.3 % (0-1); Eosinophil# 0.22 X10^3/uL; Eosinophils% 1.2 % (0-5); Hematocrit 27.9 % (40-54); Hemoglobin 8.8 g/dL (13.0-16.5); Lymphocyte # 0.87 X10^3/ul (0.83-4.51); Lymphocyte % 4.7 % (19-41); Mean Corp Hgb Conc 31.5 g/dL (32-36); Mean Corpuscular Hgb 28.4 pg (27.0-32.0); Mean Platelet Vol. 10.6 fl (6.2-12.0); Monocyte# 1.06 X10^3/uL; Monocyte% 5.7 % (0-10); NRBC Flagged by Analyzer 0 % (0-5); Neutrophil # 16.22 X10^3/uL (2.7-7.7); Neutrophil % 87.5 % (47-70); Platelet Count 320 K/mm3 (150-450); RBC Distribution Width CV 16.6 % (11.6-14.6); RBC Distribution Width SD 54.6 fl (35.1-43.9); White Blood Count 18.5 K/mm3 (4.4-11.0)
[2021-10-25 06:57] LABS: ALB/GLOB Ratio 0.4 RATIO (0.9-2.4); AST(SGOT) 24 U/L (15-37); Alanine Aminotransfer ALT/SGPT 25 U/L (16-61); Albumin, Serum 1.7 g/dL (3.2-5.0); Alkaline Phosphatase 143 U/L (45-117); Anion Gap 4 (5-15); BUN 32 mg/dL (7-18); BUN/Creat Ratio 40.4 RATIO (10-20); Calcium,Total 7.7 mg/dL (8.5-10.1); Chloride 102 mmol/L (98-107); Creatinine, Serum 0.79 mg/dL (0.70-1.30); EST Glomerular Filtration Rate 99 mL/min (>60); Est Glom Filt Rate - Afr Amer 119 mL/min (>60); Estimated Creatinine Clearance 52.94 ml/min; Globulin 4.7 g/dL (2.2-4.2); Glucose 124 mg/dL (74-106); Potassium 3.5 mmol/L (3.5-5.1); Protein, Total 6.4 g/dL (6.4-8.2); Sodium Level 133 mmol/L (136-145)
--- NOTE | 2021-10-25 07:57 | PCM.PN.SRG ---
Subjective Subjective Patient is an 86 y/o M I am following in conjunction with Dr. Denney. Patient has been having diarrhea. Stool has been sent for culture. Patient's WBC went up yesterday to 15.2. Patient was started on Zosyn yesterday at 0900. Patient also had a CT scan of the abdomen/pelvis which demonstrated 3.5 cm x 5.3 cm fluid collection in the cul-de-sac. Circumferential wall thickening of the rectosigmoid colon with increased markings in surrounding peritoneal fat. Bilateral pleural effusions with bibasilar atelectasis and/or infiltrate worse on the left side. Patient denies nausea, vomiting, abdominal pain. He denies shortness of breath and chest pain. His main complaint is that he is unable to sleep at night. He notes he tosses and turns. He does still note some burning with either urination or BM's, unsure which causes the burning. Urinalysis was performed on 10/24 which was unremarkable. Objective Data Objective Data Vital Signs: Vital Signs Temp Pulse Resp BP Pulse Ox 99.1 F 75 16 110/88 H 94 10/25/21 02:10 10/25/21 07:37 10/25/21 02:10 10/25/21 02:10 10/25/21 02:10 Oxygen Flow Rate (L/min) 92 Oxygen Delivery Method Room Air Weight: 152 lb 12.485 oz Body Mass Index (BMI) 25.0 Intake & Output: Intake and Output for Last 24 Hours 10/23/21 10/24/21 10/25/21 23:59 23:59 23:59 Intake Total 3165.2 / 3365.2 1631.8 / 1631.8 50 / 50 Output Total 200 / 650 1575 / 1575 600 / 600 Balance 2965.2 / 2715.2 56.8 / 56.8 -550 / -550 Medical Nutrition Assessment Dietitian: Malnutrition Criteria Met Start: 10/13/21 14:59 Freq: Status: Active Protocol: Document 10/24/21 08:45 AG (Rec: 10/24/21 08:45 AG [id number]) Nutrition Malnutrition Evidence of Malnutrition Exists Yes Malnutrition (severe): Acute Illness/Injury Evidenced By Suboptimal Energy Intake ( Severe),Weight Loss (Severe), Physical Changes (Mild) Clinical Problem Acute Disease or Injury Related Malnutrition Etiology severe, acute malnutrition r/t inadequate energy intake d/t recent hospitalizations, SBO, GI dysfunction Signs/Symptoms as evidenced by unintentional 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 Calorie count started 10/23/21, will continue per physician order. 2) Recommend continue TPN until adequate PO intake is confirmed. For Day #9 TPN, recommend 1L 8%AA/14% dextrose solution to provide 798 calories, 80 g protein. 3) Continue Ensure Enlive 120mL 4x/day w/ medpass. 4) Continue daily wts. Lab / Micro Data Result Diagrams: 10/25/21 06:20 10/25/21 06:20 Labs: Laboratory Results - last 24 hr 10/24/21 09:58: Urine Color Yellow, Urine Clarity Clear, Urine pH 6.5, Ur Specific [place] 1.010, Urine Protein Negative, Urine Glucose (UA) Normal, Urine Ketones Negative, Urine Occult Blood Negative, Urine Nitrite Negative, Urine Bilirubin Negative, Urine Urobilinogen Normal, Ur Leukocyte Esterase Negative, Urine RBC 0 SEEN, Urine WBC 0 SEEN, Ur Squamous Epith Cells 0-5 SEEN, Urine Bacteria 0 SEEN, Urine Mucus 0 SEEN 10/24/21 11:38: POC Glucose 160 H 10/24/21 17:38: POC Glucose 118 H 10/24/21 23:24: POC Glucose 138 H 10/25/21 05:32: POC Glucose 136 H 10/25/21 06:20: WBC 18.5 H, RBC 3.10 L, Hgb 8.8 L, Hct 27.9 L, MCV 90.0, MCH 28.4, MCHC 31.5 L, RDW Std Deviation 54.6 H, RDW Coeff of Denise 16.6 H, Plt Count 320, MPV 10.6, Immature Gran % (Auto) 0.600, Neut % (Auto) 87.5 H, Lymph % (Auto) 4.7 L, Patrick % (Auto) 5.7, Eos % (Auto) 1.2, Baso % (Auto) 0.3, Absolute Neuts (auto) 16.2 H, Absolute Lymphs (auto) 0.87, Nucleated RBC % 0 10/25/21 06:20: Sodium 133 L, Potassium 3.5, Chloride 102, Carbon Dioxide 27.0, Anion Gap 4 L, BUN 32 H, Creatinine 0.79, Estim Creat Clear Calc 52.94, Est GFR (MDRD) Af Amer 119, Est GFR (MDRD) Non-Af 99, BUN/Creatinine Ratio 40.4 H, Glucose 124 H, Calcium 7.7 L, Total Bilirubin 0.40, AST 24, ALT 25, Alkaline Phosphatase 143 H, Total Protein 6.4, Albumin 1.7 L, Globulin 4.7 H, Albumin/Globulin Ratio 0.4 L Micro: Microbiology 10/25/21 05:32 Stool Stool Lactoferrin - Final Radiography Diagnostic Testing: Radiology Impression Abdomen/Pelvis CT 10/24/21 09:51 IMPRESSION: Findings suggestive of colitis involving the rectosigmoid colon with a well circumscribed fluid collection in the cul-de-sac as described. Distended gallbladder with findings suggestive of a tiny gallstones or sludge in the gallbladder lumen at the level of the neck of the gallbladder. Bilateral pleural effusions with bibasilar atelectasis and/or infiltrate worse on the left side. Stable bilateral renal cysts. Electronically Signed: Porter Singh MD at 13:43 EST Reading Location ID and State: [facility] / [place] , Service support , Physical Exam Const alert, oriented x3 and no apparent distress Resp normal respiratory effort Auscultation: wheezes inspiratory wheezes and upper bilaterally and diminished lung sounds bilateral lower Cardio regular rate and regular rhythm GI soft to palpation, non-tender and non-distended GI Narrative: Open incision midline abdomen- no erythema or infection noted. Retention sutures intact. Dry gauze dressing packed in between. No drainage noted. ABD pad applied overtop of the entire open wound. Auscultation: normoactive bowel sounds Extremity normal to inspection and no pedal edema Assessment & Plan Assessment/Plan (1) S/P small bowel resection: PLAN: Continue TPN and regular diet Increased leukocytosis to 18.5 today Continue Zosyn Out of bed to chair today Difficulty sleeping- Recommend a sleep aid per medicine Appreciate medicine input and recommendations Continue hospitalization today We will continue to closely monitor this patient Patient discussed with Dr. Denney. she will independently evaluate this patient. Charges/Coding Visit Charges Inpatient E&M: 69858 Subs Hosp L1 (post-op)
[2021-10-25] MEDS: APIXABAN 5 MG TABLET PO (10:31)
[2021-10-25] MEDS: Iron Polysaccharide Complex 150 MG CAPSULE PO ×2 (10:31→16:29)
[2021-10-25] MEDS: Pentoxifylline 400 MG Tablet PO (10:31)
[2021-10-25] MEDS: Pantoprazole Sodium 40 MG Tablet PO (10:32)
[2021-10-25] MEDS: Menthol/Lanolin/Calamine/Znox 113 GM Tube 1 APPLIC TOPICAL ×2 (10:32→21:05)
--- NOTE | 2021-10-25 10:35 | CASEMGMT ---
Social Work Note SW updated that pt is still not medically ready for discharge. SW updated Yuki with TCU. Pre-cert approval has been extended until 10/28/2021 at 11:59pm. Plan: TCU when medically cleared. Pre-cert is good until Friday10/28/2021 at 11:59pm. Pt will need COVID test on day of discharge. Shayy Bowman FLOTATION TENDER, ELECTRON BEAM WELDER SETTER
--- NOTE | 2021-10-25 10:50 | PN.HOSP_ITS ---
Subjective Subjective Patient seen and examined. He feels well today and has no active complaints. Review of systems otherwise negative. WBC has trended up some more today. States his diarrhea is improving. He had a CT of the abdomen and pelvis yesterday which showed a 3.5 x 5.3 cm fluid collection in the cul-de-sac area. Review of systems otherwise negative. Objective Data Objective Data Vital Signs: Vital Signs Temp Pulse Resp BP Pulse Ox 98.0 F 81 16 98/39 L 94 10/25/21 10:28 10/25/21 10:28 10/25/21 10:28 10/25/21 10:28 10/25/21 10:28 Oxygen Flow Rate (L/min) 92 Oxygen Delivery Method Room Air Weight: 152 lb 12.485 oz Body Mass Index (BMI) 25.0 Intake & Output: Intake and Output for Last 24 Hours 10/23/21 10/24/21 10/25/21 23:59 23:59 23:59 Intake Total 3165.2 / 3365.2 1631.8 / 1631.8 50 / 50 Output Total 200 / 650 1575 / 1575 600 / 600 Balance 2965.2 / 2715.2 56.8 / 56.8 -550 / -550 Medical Nutrition Assessment Dietitian: Malnutrition Criteria Met Start: 10/13/21 14:59 Freq: Status: Active Protocol: Document 10/25/21 09:01 (Rec: 10/25/21 09:01 [id number]) Nutrition Malnutrition Evidence of Malnutrition Exists Yes Malnutrition (severe): Acute Illness/Injury Evidenced By Suboptimal Energy Intake ( Severe),Weight Loss (Severe), Physical Changes (Mild) Clinical Problem Acute Disease or Injury Related Malnutrition Etiology severe, acute malnutrition r/t inadequate energy intake d/t recent hospitalizations, SBO, GI dysfunction Signs/Symptoms as evidenced by 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 Calorie count started 10/23/21, will continue per physician order. 2) Recommend continue TPN until adequate PO intake is confirmed. For Day #10 TPN, recommend 1L 8%AA/14% dextrose solution to provide 798 calories, 80 g protein. 3) Continue Ensure Enlive 120mL 4x/day w/ medpass. Will try magic cup w/ lunch today. 4) Continue daily wts. Lab / Micro Data Result Diagrams: 10/25/21 06:20 10/25/21 06:20 Labs: Laboratory Results - last 24 hr 10/24/21 11:38: POC Glucose 160 H 10/24/21 17:38: POC Glucose 118 H 10/24/21 23:24: POC Glucose 138 H 10/25/21 05:32: POC Glucose 136 H 10/25/21 06:20: WBC 18.5 H, RBC 3.10 L, Hgb 8.8 L, Hct 27.9 L, MCV 90.0, MCH 28.4, MCHC 31.5 L, RDW Std Deviation 54.6 H, RDW Coeff of Denise 16.6 H, Plt Count 320, MPV 10.6, Immature Gran % (Auto) 0.600, Neut % (Auto) 87.5 H, Lymph % (Auto) 4.7 L, [place] % (Auto) 5.7, Eos % (Auto) 1.2, Baso % (Auto) 0.3, Absolute Neuts (auto) 16.2 H, Absolute Lymphs (auto) 0.87, Nucleated RBC % 0 10/25/21 06:20: Sodium 133 L, Potassium 3.5, Chloride 102, Carbon Dioxide 27.0, Anion Gap 4 L, BUN 32 H, Creatinine 0.79, Estim Creat Clear Calc 52.94, Est GFR (MDRD) Af Amer 119, Est GFR (MDRD) Non-Af 99, BUN/Creatinine Ratio 40.4 H, Glucose 124 H, Calcium 7.7 L, Total Bilirubin 0.40, AST 24, ALT 25, Alkaline Phosphatase 143 H, Total Protein 6.4, Albumin 1.7 L, Globulin 4.7 H, Albumin/Globulin Ratio 0.4 L Micro: Microbiology 10/25/21 05:32 Stool Stool Lactoferrin - Final Radiography Diagnostic Testing: Radiology Impression Abdomen/Pelvis CT 10/24/21 09:51 IMPRESSION: Findings suggestive of colitis involving the rectosigmoid colon with a well circumscribed fluid collection in the cul-de-sac as described. Distended gallbladder with findings suggestive of a tiny gallstones or sludge in the gallbladder lumen at the level of the neck of the gallbladder. Bilateral pleural effusions with bibasilar atelectasis and/or infiltrate worse on the left side. Stable bilateral renal cysts. Electronically Signed: Porter Singh MD at 13:43 EST , Physical Exam Const alert, oriented x3 and no apparent distress General Appearance: cooperative Exam Limitations: no limitations HEENT normocephalic, head/scalp atraumatic and moist oral mucous membranes; Negative for hearing grossly normal bilaterally Head and Scalp: normocephalic Eyes PERRL, EOMs intact bilaterally and conjunctivae normal Neck no lymphadenopathy, supple, no JVD and no carotid bruits Resp normal respiratory effort, no retractions, no use of accessory muscles and clear to auscultation bilaterally Resp Narrative: Diminished but clear Auscultation: Negative for crackles, rales, rhonchi or wheezes Cardio regular rate, regular rhythm, S1 normal heart sound, S2 normal heart sound, no murmurs, no rub, no gallops, no clicks and no JVD GI normal to inspection, nondistended, normoactive bowel sounds, soft to palpation, non-tender and non-distended GI Narrative: Intact dressing over surgical site. soft, non tender Extremity normal to inspection, full ROM and no clubbing, cyanosis or edema Skin no rashes or lesions noted Neuro oriented x3, CN's II-XII intact bilaterally, moves all extremities and no focal motor deficits Sensorium / Orientation: awake and alert Speech: speech normal Psych affect normal Psych Narrative: Very pleasant Assessment & Plan Assessment/Plan (1) Ischemic necrosis of small bowel: (2) S/P small bowel resection: (3) Adynamic ileus: (4) History of small bowel obstruction: PLAN: #Acute small bowel obstruction with gangrene of the jejenum * s/p small bowel resection with anastomosis * he had 60cm of jejunum removed * on TPN; will renew * Will need to continue TPN in TCU after discharge * on IV morphine prn for pain * completed a course of IV zosyn. IV zosyn started again yesterday due to elevated wbc. WBC today has increased further to 18.5. * CT abdomen and pelvis done showed colitis involving the rectosigmoid colon with a well-circumscribed fluid collection measuring 3.5 x 5.3 cm in the cul-de-sac and distended gallbladder with findings suggestive of tiny gallstones or sludge in the gallbladder lumen at the level of the neck of the gallbladder and bilateral pleural effusions with bibasilar atelectasis worse on the left side * General surgery on board. * on oral diet as well * Per general surgery note from yesterday, the fluid collection would be a hard spot to get to with the percutaneous drain and it is also a small size. * will discuss with general surgery about if the gallbladder pathology could be contributing to his elevated wbc * Consider ID consult if WBC remains elevated * stool studies pending, though diarrhea has improved. * #Dysuria * urinalysis was negative for evidence of UTI * dysuria has resolved. 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 * fall precautions * to follow up with orthopedic surgery on outpatient basis * #Paroxysmal afib * on eliquis and metoprolol * #CAD s/p CABG: Blood pressure medications. On statin #Hyper lipidemia: On statin #Hypertension: On metoprolol and hydrochlorothiazide as well as amlodipine and ramipril #GERD: On PPI #Severe protein calorie malnutrition: On regular diet. On TPN as well. D ietitian on board. DVT prophylaxis: Lovenox Disposition: awaiting placement Charges/Coding Visit Charges Inpatient E&M: 69376 Subs Hosp L2
[2021-10-25 11:55] LABS: Bedside Glucose 144 mg/dL (70-110)
--- NOTE | 2021-10-25 12:09 | US_ITS ---
STUDY: ABDOMINAL ULTRASOUND - RIGHT UPPER QUADRANT REASON FOR VISIT: Male, 86 years old gallstones and sludge on CT abdomen TECHNIQUE: Ultrasound evaluation of the right upper quadrant was performed with real-time and static boswell-scale imaging. TECHNICAL QUALITY: Adequate. COMPARISON: CT abdomen October 24, 2021 FINDINGS: Liver: The liver measures 151 cm. There is a somewhat coarse appearance of the echotexture of the liver. The bile ducts are within normal limits. There is hepatic color flow. The direction of portal flow is hepatopetal. There is no demonstrated mass lesion. Gallbladder: Normal distended gallbladder. The gallbladder wall measures 3 mm. There is a negative sonographic Martinez''s sign. There is no pericholecystic fluid. There is sludge and/or tiny stones in the gallbladder. Common Bile Duct (C.B.D.): The common bile duct measures 8 mm. Pancreas: Normal size of the head, body and tail of the pancreas. There is normal echogenicity of the pancreas. There is no demonstrated pancreatic mass or cyst. Right Kidney: Normal size of the right kidney. The right kidney measures 12.6 x 5.5 x 5.7 cm. Normal renal cortex. The right cortex measures 2 cm. There is small right-sided renal cysts stable since prior study one measuring 1.7 x 1.2 x 1.3 cm the other measuring 2.4 x 2.3 x 2.0 cm. There is no right hydronephrosis. US/Gallbladder IMPRESSION: Minimal cholelithiasis and/or sludge. No ultrasound evidence of cholecystitis. Electronically Signed: Jazz Diamond MD at 7:54 EST ,
--- NOTE | 2021-10-25 12:09 | EKG12_ITS ---
Test Reason : VTACH Blood Pressure : / mmHG Vent. Rate : 083 BPM Atrial Rate : 083 BPM P-R Int : 000 ms QRS Dur : 150 ms QT Int : 418 ms P-R-T Axes : 000 245 041 degrees QTc Int : 491 ms Atrial fibrillation with premature ventricular or aberrantly conducted complexes Right bundle branch block Abnormal ECG When compared with ECG of 15-OCT-2021 14:09, Atrial fibrillation has replaced Sinus rhythm Confirmed by VIOLA KNOTT, ANI ([id number]), video tape editor KANG HWANG ([id number]) on 10/30/2021 11:22:48 AM Referred By: OPHELIA Confirmed By:ANI ROD MD
--- NOTE | 2021-10-25 14:24 | CT_ITS ---
PROCEDURE: CT DIRECTED ABSCESS DRAINAGE, PERITONEAL DATE OF EXAMINATION: 10/25/2021. INDICATION: Male, 86 years old. Pelvic abscess. PHYSICIAN: Porter Singh M.D. CONSENT: Written informed consent was obtained having explained the risks, benefits and alternatives in detail with the patient who accepted the risks and agreed to proceed. Laboratory review and clinical assessment was performed. CONSCIOUS SEDATION PROTOCOL: The Drugs used were: 2 mg Versed, IV., and 50 mcg Fentanyl, IV. The sedation time was: 21 minutes. Conscious sedation was started at 2:36 PM and terminated at 2:57 PM. The conscious sedation protocol was independently monitored. RADIATION DOSAGE (If Supplied By Facility): CTDIvol = ( 26 ) mGy, DLP = ( 800.38 ) mGycm. Individualized dose optimization techniques were utilized. TECHNIQUE: CT sections were made through the abdomen and pelvis revealing an abscess pelvis. The skin surface was prepped and draped in a sterile fashion. Puncture of this collection was performed with an 18-gauge biopsy needle and fluid was aspirated. 25 cc of cloudy red fluid. CT/Abscess/Fistula/Sinus Tract IMPRESSION: 1. CT directed drainage of a fluid collection using CT image guidance and image documentation as described. 2. Conscious Sedation protocol utilized with independent monitoring Electronically Signed: Porter Singh MD at 15:37 EST ,
[2021-10-25] MEDS: Midazolam 2 MG/2 ML Syringe IV ×2 (14:35→14:51)
[2021-10-25] MEDS: fentaNYL 100 MCG/2 ML Ampul IV ×2 (14:36→14:51)
[2021-10-25] MEDS: Lidocaine 2% (20 ml mdv) 20 ML Vial INFILT (14:45)
--- NOTE | 2021-10-25 15:15 | NURSING ---
IMMEDIATELY ON RETURN TO [facility] PT HAD LARGE EMESIS. SOFT FOOD/MUCUS. PT ABLE TO CLEAR THROAT WITH COUGH AND MOUTH WITH ASSISTANCE OF MARY. PT GOWN AND BLANKET CHANGED. 95% SP02 RA IMMEDIATLEY FOLLOWING. DR SMITH MADE AWARE.
[2021-10-25] MEDS: TPN - Clinimix E 8%-14% Soln 2,000 ML with Multivitamins 10 ML, Trace Elements 1 ML, Fo... 42 ML IV (15:56)
[2021-10-25] MEDS: 0.9% Saline Lock 10 ML Syringe IV ×4 (15:56→20:34)
[2021-10-25] MEDS: Acetaminophen 325 MG Tablet 650 MG PO ×2 (16:28→23:47)
--- NOTE | 2021-10-25 16:45 | RAD_ITS ---
INDICATION: VOMITED AFTER PROCEDURE. CT DRAINAGE. EXAMINATION/TECHNIQUE: X-RAY - XR Abdomen 1 View COMPARISON: 10/19/2021 FINDINGS: BOWEL GAS PATTERN: Multiple dilated loops of small and large bowel. FREE AIR: Not assessed on a single supine view. ORGANOMEGALY: Not seen. CALCIFICATIONS: No abnormal calcifications observed. LOWER CHEST: No acute pathology. BONES AND SOFT TISSUES: No acute pathology. RAD/Abdomen Single View (Portable) IMPRESSION: Multiple dilated loops of small and large bowel may represent ileus. Electronically Signed: Wiley De Leon MD at 18:51 EST ,
[2021-10-25] MEDS: Morphine 2 MG/ML Syringe IV ×2 (18:12→22:38)
[2021-10-25 18:46] LABS: Bedside Glucose 240 mg/dL (70-110)
--- NOTE | 2021-10-25 19:00 | NURSING ---
assisted primary RN with NGT placement in rt nares. pt tolerated well. aware radiology notified for placement varification
[2021-10-25 19:13] LABS: Hematocrit 28.8 % (40-54); Hemoglobin 9.5 g/dL (13.0-16.5); Mean Corpuscular Hgb 29.9 pg (27.0-32.0); Mean Corpuscular Volume 90.6 fL (80-94); Mean Platelet Vol. 10.9 fl (6.2-12.0); Platelet Count 388 K/mm3 (150-450); RBC Distribution Width CV 16.3 % (11.6-14.6); RBC Distribution Width SD 54.1 fl (35.1-43.9); Red Blood Count 3.18 M/mm3 (4.6-6.2)
--- NOTE | 2021-10-25 19:25 | RAD_ITS ---
STUDY: X-RAY - ABDOMEN/PELVIS REASON FOR EXAM: Male, 86 years old. NG PLACEMENT TECHNIQUE: KUB COMPARISON: KUB 10/25/2021 4:40 PM FINDINGS: Normal visualized lung bases. Postop change status post median sternotomy and CABG Diffuse small bowel distention within the upper and mid abdomen. There is no demonstrated free abdominal air. The visualized liver, spleen and kidneys are grossly normal in size and morphology. NG tube has been placed with tip in the proximal to mid gastric fundus Normal soft tissue structures. Lumbar spine demonstrates degenerative change. RAD/Abdomen Single View (Portable) IMPRESSION: NG tube placement within the mid gastric fundus Electronically Signed: Jose Enrique Holly MD at 20:54 EST ,
[2021-10-25 19:39] LABS: Potassium 3.3 mmol/L (3.5-5.1)
[2021-10-25] MEDS: Potassium Chloride 10mEq/100mL 10 MEQ/100 ML IV.SOLN. 100 MEQ IV BOLUS ×4 (20:35→23:48)
[2021-10-25] MEDS: DiphenhydrAMINE 25 MG Capsule PO (21:05)
[2021-10-25] MEDS: Atorvastatin Calcium 40 MG Tablet PO (21:05)
[2021-10-26] VITALS (32 sets, daily range): BP systolic 73–158; BP diastolic 42–125; PULSE 65–125; RESP 16–32; TEMP 36.5–39.2; O2SAT 90–98; BMI 20.7
--- NOTE | 2021-10-26 | COLBX_PTH ---
PATIENT: CARIDAD WARD LOC: [facility] U#:[id number] AGE/SX: 86/M ROOM: [facility] RE10/13/[address]: Dr. Mirlande Trevino MD : [id number] BED: 1 DIS: 11/02/2021 SPEC #: [id number] RECD: 10/26/21 15:36 STATUS: ROHAN REShaun #: [id number] PRASHANT: 10/26/21 00:[address]: Justyna Denney DEPT: SURGICAL PATHOLOGY RECD BY: Fili Dasilva ENTERED: 10/29/21 08:44 SP TYPE: COLON BX OTHR DR: Oneida Virk, INSERTER PROMOTIONAL ITEM-C MD Dr. Willi Roth MD Dr. Derek Brown, DO Dr. Moustapha Posada, MD Dr. Shanice Yeung Dr., DO MD Dr. Justyna Coats MD Carolyn Graham, INSERTER PROMOTIONAL ITEM-C Anna Valles, INSERTER PROMOTIONAL ITEM-C Olga Ferrer, INSERTER PROMOTIONAL ITEM-C Renu Balbuena, INSERTER PROMOTIONAL ITEM-C David Rios MD Tissues: Ileum, NOS Procedures: Surgery Specimen Level V Comments: @ Ordering doctor for SUIV edited from to @ by LIU at 10/29/21 1420 @ Submitting doctor edited from to @ by LIU at 10/29/21 1420 HEADER OPERATION: Exploratory laparotomy, bowel resection, ileocecectomy PRE-OP DIAGNOSIS: Leukocytosis, status post small bowel resection, ischemic necrosis of small bowel, history of small bowel obstruction TISSUE SUBMITTED: Ileocecectomy with terminal ileum MICROSCOPIC DIAGNOSIS Small and large bowel, ileocecectomy: Acute ileitis with gangrenous necrosis and associated acute serositis. Mucosal margins of excision with no pathologic change. Serosal fibrinoid material and fibrosis consistent with adhesion. AM:vasiliy 10/31/2021 COMMENT Sections of the large bowel/cecum show focal acute colitis; however, transmural inflammation of gangrenous necrosis is not present in this area. Reference is made to the patient's previous distal jejunum, segmental resection ([id number]) in which ulceration, necrosis and transmural acute inflammation was identified. Case has been reviewed in consultation with Dr. Urena who concurs with the above diagnosis. IDC:[email or web address] MICROSCOPIC DESCRIPTION Slides are reviewed. GROSS DESCRIPTION Received in fixative is one container labeled with the patient's name and designated ileocecectomy with terminal ileum. The specimen consists of an ileocecectomy specimen consisting of large segment of small bowel and cecum. The segment of small bowel measures 72 cm in length. 23 cm away from the proximal resection margin, an area of end-to-end anastomosis is noted. The cecum measures 9 cm in length. Appendix is not identified. Attached omentum and pericolonic adipose tissue is also noted. Small intestine segment is markedly tortuous and also focally adherent to one portion of ileum to another portion. The serosal surface is congested and focally covered with scant purulent exudate. No mucosal lesion is identified. Contains fecal material. Sections will be submitted after fixation. / SJ:vasiliy 10/29/2021 Sections of the mesenteric tissue and pericolonic adipose tissue do not reveal any obviously enlarged lymph node. Janitor Supervisor sections are submitted in nine cassettes as follows: 1 - resection margins, 2?& 3 - area of anastomosis, 4 - small bowel proximal to anastomosis, 5-7 - small bowel distal to anastomosis, 8 - ileocecal valve and cecum, 9 - pericolonic adipose tissue and mesenteric tissue. / SJ:vasiliy 10/30/2021 TC:2 [facility]: [id number]
[2021-10-26 00:06] LABS: Bedside Glucose 168 mg/dL (70-110)
[2021-10-26] MEDS: Piperacil/Tazobactam 3.375 GM Q8 PREMIX IV (02:42)
[2021-10-26 05:31] LABS: Absolute Lymphocyte Count 0.25 X10^3/uL (0.83-4.51); Absolute Neutrophil Count 28.6 X10^3/uL (2.0-7.7); Basophil# 0.03 X10^3/uL; Basophil% 0.1 % (0-1); Hematocrit 28.6 % (40-54); Hemoglobin 9.2 g/dL (13.0-16.5); Lymphocyte # 0.25 X10^3/ul (0.83-4.51); Lymphocyte % 0.8 % (19-41); Mean Corp Hgb Conc 32.2 g/dL (32-36); Mean Corpuscular Volume 90.2 fL (80-94); Mean Platelet Vol. 10.7 fl (6.2-12.0); Monocyte# 0.95 X10^3/uL; Monocyte% 3.2 % (0-10); NRBC Flagged by Analyzer 0 % (0-5); POSITIVE COUNT YES; POSITIVE DIFFERENTIAL YES; Platelet Count 373 K/mm3 (150-450); RBC Distribution Width CV 16.4 % (11.6-14.6); Red Blood Count 3.17 M/mm3 (4.6-6.2); White Blood Count 30.1 K/mm3 (4.4-11.0)
[2021-10-26 05:34] LABS: Differential Indicated SCAN CRITERIA MET
[2021-10-26 05:36] LABS: Bedside Glucose 131 mg/dL (70-110)
[2021-10-26 05:49] LABS: Anisocytosis 1+
--- NOTE | 2021-10-26 05:55 | PCM.PN.BLA ---
Progress Note Patient with abdominal abscess noted for fever and increasing white counts. We will get blood cultures. Patient already on Zosyn. Will give a one-time dose of fluconazole IV. Per attending MDs notes considering ID consult. Will consult ID. Also patient in A. fib RVR with rate of 120. Reportedly metoprolol p.o. was held secondary to hypotension also patient is n.p.o. and has NG tube. Will order metoprolol IV as needed.
[2021-10-26 05:56] LABS: ALB/GLOB Ratio 0.3 RATIO (0.9-2.4); AST(SGOT) 28 U/L (15-37); Alanine Aminotransfer ALT/SGPT 22 U/L (16-61); Albumin, Serum 1.6 g/dL (3.2-5.0); Alkaline Phosphatase 175 U/L (45-117); Anion Gap 6 (5-15); BUN 38 mg/dL (7-18); BUN/Creat Ratio 44.3 RATIO (10-20); Chloride 103 mmol/L (98-107); Creatinine, Serum 0.86 mg/dL (0.70-1.30); EST Glomerular Filtration Rate 90 mL/min (>60); Est Glom Filt Rate - Afr Amer 109 mL/min (>60); Estimated Creatinine Clearance 58.36 ml/min; Glucose 131 mg/dL (74-106); Potassium 4.4 mmol/L (3.5-5.1); Protein, Total 6.6 g/dL (6.4-8.2); Sodium Level 133 mmol/L (136-145)
[2021-10-26] MEDS: 0.9% Saline Lock 10 ML Syringe IV ×5 (05:59→21:31)
[2021-10-26] MEDS: Metoprolol Tartrate 5 MG/5 ML Vial IV (05:59)
[2021-10-26] MEDS: Acetaminophen 325 MG Tablet 650 MG PO ×2 (06:04→21:30)
--- NOTE | 2021-10-26 07:58 | PN.SURG_ITS ---
Subjective Subjective Patient did have the abscess aspirated in IR yesterday got 25 cc of. Material/blood growing gram-negative rods on Gram stain. Patient has been on Zosyn White blood count increased 18 yesterday morning to 30 this morning patient has been changed to meropenem and ID consult placed. NG was placed yesterday due to patient throwing up while getting the abscess aspirated KUB appeared to have an ileus. Ultrasound the gallbladder was done yesterday no pericholecystic fluid no Martinez's sign has some sludge official read pending. Patient did have tachycardia yesterday and this morning as well as a low-grade fever this morning. Objective Data Objective Data Vital Signs: Vital Signs Temp Pulse Resp BP Pulse Ox 100.6 F H 84 16 110/99 H 94 10/26/21 05:30 10/26/21 07:36 10/26/21 02:00 10/26/21 05:59 10/26/21 07:44 Oxygen Flow Rate (L/min) 2 Oxygen Delivery Method [5] Room Air Oxygen Delivery Method [4] Room Air Oxygen Delivery Method [3] Room Air Oxygen Delivery Method [2] Room Air Oxygen Delivery Method [1 ( Room Air Initial Baseline)] Oxygen Delivery Method Nasal Cannula Weight: 144 lb 13.499 oz Body Mass Index (BMI) 21.9 Intake & Output: Intake and Output for Last 24 Hours 10/24/21 10/25/21 10/26/21 23:59 23:59 23:59 Intake Total 1631.8 / 1631.8 2230.1 / 2350.1 270 / 270 Output Total 1575 / 1575 925 / 1175 800 / 800 Balance 56.8 / 56.8 1305.1 / 1175.1 -530 / -530 Medical Nutrition Assessment Dietitian: Malnutrition Criteria Met Start: 10/13/21 14:59 Freq: Status: Active Protocol: Document 10/25/21 09:01 (Rec: 10/25/21 09:01 [id number]) Nutrition Malnutrition Evidence of Malnutrition Exists Yes Malnutrition (severe): Acute Illness/Injury Evidenced By Suboptimal Energy Intake ( Severe),Weight Loss (Severe), Physical Changes (Mild) Clinical Problem Acute Disease or Injury Related Malnutrition Etiology severe, acute malnutrition r/t inadequate energy intake d/t recent hospitalizations, SBO, GI dysfunction Signs/Symptoms as evidenced by unintentional 22.9#/12.5% wt loss x 2 months [employer]; 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 Calorie count started 10/23/21, will continue per physician order. 2) Recommend continue TPN until adequate PO intake is confirmed. For Day #10 TPN, recommend 1L 8%AA/14% dextrose solution to provide 798 calories, 80 g protein. 3) Continue Ensure Enlive 120mL 4x/day w/ medpass. Will try magic cup w/ lunch today. 4) Continue daily wts. Lab / Micro Data Result Diagrams: 10/26/21 05:16 10/26/21 05:16 Labs: Laboratory Results - last 24 hr 10/25/21 06:20: Magnesium 2.0 10/25/21 11:43: POC Glucose 144 H 10/25/21 18:28: POC Glucose 240 H 10/25/21 18:45: WBC 24.0 H, RBC 3.18 L, Hgb 9.5 L, Hct 28.8 L, MCV 90.6, MCH 29.9, MCHC 33.0, RDW Std Deviation 54.1 H, RDW Coeff of Denise 16.3 H, Plt Count 388, MPV 10.9 10/25/21 18:45: Potassium 3.3 L 10/25/21 23:55: POC Glucose 168 H 10/26/21 05:16: WBC 30.1 H*, RBC 3.17 L, Hgb 9.2 L, Hct 28.6 L, MCV 90.2, MCH 29.0, MCHC 32.2, RDW Std Deviation 53.0 H, RDW Coeff of Denise 16.4 H, Plt Count 373, MPV 10.7, Immature Gran % (Auto) 0.900, Neut % (Auto) 95.0 H, Lymph % (Auto) 0.8 L, [place] % (Auto) 3.2, Eos % (Auto) 0.0, Baso % (Auto) 0.1, Absolute Neuts (auto) 28.6 H, Absolute Lymphs (auto) 0.25 L, Nucleated RBC % 0, Diff Path Review May foll, Anisocytosis 1+ 10/26/21 05:16: Sodium 133 L, Potassium 4.4, Chloride 103, Carbon Dioxide 24.0, Anion Gap 6, BUN 38 H, Creatinine 0.86, Estim Creat Clear Calc 58.36, Est GFR (MDRD) Af Amer 109, Est GFR (MDRD) Non-Af 90, BUN/Creatinine Ratio 44.3 H, Glucose 131 H, Calcium 8.0 L, Total Bilirubin 0.50, AST 28, ALT 22, Alkaline Phosphatase 175 H, Total Protein 6.6, Albumin 1.6 L, Globulin 5.0 H, Albumin/Gl obulin Ratio 0.3 L 10/26/21 05:18: POC Glucose 131 H Micro: Microbiology 10/25/21 Unknown Aspirate - Abdominal Gram Stain - Preliminary 10/25/21 05:32 Stool Enteric Bacteriology - Final 10/25/21 05:32 Stool C. difficile DNA Amplification - Final 10/25/21 05:32 Stool Stool Lactoferrin - Final Radiography Diagnostic Testing: Radiology Impression Gallbladder Ultrasound 10/25/21 12:09 IMPRESSION: Minimal cholelithiasis and/or sludge. No ultrasound evidence of cholecystitis. Electronically Signed: Jazz Diamond MD at 7:54 EST , Abscess Drainage 10/25/21 14:24 IMPRESSION: 1. CT directed drainage of a fluid collection using CT image guidance and image documentation as described. 2. Conscious Sedation protocol utilized with independent monitoring Electronically Signed: Porter Singh MD at 15:37 EST , KUB X-Ray 10/25/21 16:45 IMPRESSION: Multiple dilated loops of small and large bowel may represent ileus. Electronically Signed: Wiley De Leon MD at 18:51 EST , KUB X-Ray 10/25/21 19:25 IMPRESSION: NG tube placement within the mid gastric fundus Electronically Signed: Jose Enrique Holly MD at 20:54 EST Reading Location ID and State: [facility] / [place] , Service support , Physical Exam Const alert, oriented x3 and no apparent distress Resp normal respiratory effort Cardio Rate: tachycardic GI soft to palpation and non-distended GI Narrative: Open skin incision midline abdomen- no erythema or infection noted. Retention sutures intact. Wet-to-dry's and wound good granulation tissue no signs of infection Right buttocks dressed site of IR aspiration Auscultation: normoactive bowel sounds Palpation: tender other (Mild near incision) Extremity normal to inspection and no pedal edema Assessment & Plan Assessment & Plan (1) Leukocytosis: (2) S/P small bowel resection: (3) Ischemic necrosis of small bowel: (4) History of small bowel obstruction: (5) History of atrial fibrillation: (6) Chronic anticoagulation: Plan: Patient NG placed yesterday does have brownish drainage about 300 canister currently. Patient does have mild abdominal pain, points mostly near incision however he does have a high pain tolerance. With a white blood count of 30 lawrence g with some tachycardia/fever did call and discussed with the plan for exploratory laparotomy possible bowel resection with drain placement. Discussed the risk benefits of procedure with the including but not limited to bleeding, injury to another organ, planning to drain abscess, possibility of going to ICU after surgery. Scheduled for about 130 today. Continue meropenem, ID consulted Justyna Denney M.D. Pager: [phone] [facility] [address] [place] [address], [facility], [address] [place] [address] Office: [phone]
[2021-10-26] MEDS: Menthol/Lanolin/Calamine/Znox 113 GM Tube 1 APPLIC TOPICAL ×2 (09:13→20:59)
--- NOTE | 2021-10-26 09:50 | PN.HOSP_ITS ---
Subjective Subjective Patient seen and examined. He had no acute complaints. He was noted to be more febrile and tachycardic overnight. He had drainage of the intra abdominal abscess yesterday. He is for exploratory laparotomy today in light of his elevated wbc of 30. He had an NG tube in place. Objective Data Objective Data Vital Signs: Vital Signs Temp Pulse Resp BP Pulse Ox 97.7 F L 87 20 H 116/104 H 92 10/26/21 09:18 10/26/21 09:18 10/26/21 09:18 10/26/21 09:18 10/26/21 09:18 Oxygen Flow Rate (L/min) 3 Oxygen Delivery Method [5] Room Air Oxygen Delivery Method [4] Room Air Oxygen Delivery Method [3] Room Air Oxygen Delivery Method [2] Room Air Oxygen Delivery Method [1 ( Room Air Initial Baseline)] Oxygen Delivery Method Nasal Cannula Weight: 144 lb 13.499 oz Body Mass Index (BMI) 20.7 Intake & Output: Intake and Output for Last 24 Hours 10/24/21 10/25/21 10/26/21 23:59 23:59 23:59 Intake Total 1631.8 / 1631.8 2230.1 / 2350.1 270 / 270 Output Total 1575 / 1575 925 / 1175 800 / 800 Balance 56.8 / 56.8 1305.1 / 1175.1 -530 / -530 Medical Nutrition Assessment Dietitian: Malnutrition Criteria Met Start: 10/13/21 14:59 Freq: Status: Active Protocol: Document 10/25/21 09:01 (Rec: 10/25/21 09:01 [id number]) Nutrition Malnutrition Evidence of Malnutrition Exists Yes Malnutrition (severe): Acute Illness/Injury Evidenced By Suboptimal Energy Intake ( Severe),Weight Loss (Severe), Physical Changes (Mild) Clinical Problem Acute Disease or Injury Related Malnutrition Etiology severe, acute malnutrition r/t inadequate energy intake d/t recent hospitalizations, SBO, GI dysfunction Signs/Symptoms as evidenced by unintentional 22.9#/12.5% wt loss x 2 months [employer]; 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 Calorie count started 10/23/21, will continue per physician order. 2) Recommend continue TPN until adequate PO intake is confirmed. For Day #10 TPN, recommend 1L 8%AA/14% dextrose solution to provide 798 calories, 80 g protein. 3) Continue Ensure Enlive 120mL 4x/day w/ medpass. Will try magic cup w/ lunch today. 4) Continue daily wts. Lab / Micro Data Result Diagrams: 10/26/21 05:16 10/26/21 05:16 Labs: Laboratory Results - last 24 hr 10/25/21 06:20: Magnesium 2.0 10/25/21 11:43: POC Glucose 144 H 10/25/21 18:28: POC Glucose 240 H 10/25/21 18:45: WBC 24.0 H, RBC 3.18 L, Hgb 9.5 L, Hct 28.8 L, MCV 90.6, MCH 29.9, MCHC 33.0, RDW Std Deviation 54.1 H, RDW Coeff of Denise 16.3 H, Plt Count 388, MPV 10.9 10/25/21 18:45: Potassium 3.3 L 10/25/21 23:55: POC Glucose 168 H 10/26/21 05:16: WBC 30.1 H*, RBC 3.17 L, Hgb 9.2 L, Hct 28.6 L, MCV 90.2, MCH 29.0, MCHC 32.2, RDW Std Deviation 53.0 H, RDW Coeff of Denise 16.4 H, Plt Count 373, MPV 10.7, Immature Gran % (Auto) 0.900, Neut % (Auto) 95.0 H, Lymph % (Auto) 0.8 L, [place] % (Auto) 3.2, Eos % (Auto) 0.0, Baso % (Auto) 0.1, Absolute Neuts (auto) 28.6 H, Absolute Lymphs (auto) 0.25 L, Nucleated RBC % 0, Diff Path Review May foll, Anisocytosis 1+ 10/26/21 05:16: Sodium 133 L, Potassium 4.4, Chloride 103, Carbon Dioxide 24.0, Anion Gap 6, BUN 38 H, Creatinine 0.86, Estim Creat Clear Calc 58.36, Est GFR (MDRD) Af Amer 109, Est GFR (MDRD) Non-Af 90, BUN/Creatinine Ratio 44.3 H, Glucose 131 H, Calcium 8.0 L, Total Bilirubin 0.50, AST 28, ALT 22, Alkaline P hosphatase 175 H, Total Protein 6.6, Albumin 1.6 L, Globulin 5.0 H, Albumin/Globulin Ratio 0.3 L 10/26/21 05:18: POC Glucose 131 H Micro: Microbiology 10/25/21 Unknown Aspirate - Abdominal Gram Stain - Final 10/25/21 05:32 Stool Enteric Bacteriology - Final 10/25/21 05:32 Stool C. difficile DNA Amplification - Final 10/25/21 05:32 Stool Stool Lactoferrin - Final Radiography Diagnostic Testing: Radiology Impression Gallbladder Ultrasound 10/25/21 12:09 IMPRESSION: Minimal cholelithiasis and/or sludge. No ultrasound evidence of cholecystitis. Electronically Signed: Jazz Diamond MD at 7:54 EST , Abscess Drainage 10/25/21 14:24 IMPRESSION: 1. CT directed drainage of a fluid collection using CT image guidance and image documentation as described. 2. Conscious Sedation protocol utilized with independent monitoring Electronically Signed: Porter Singh MD at 15:37 EST , KUB X-Ray 10/25/21 16:45 IMPRESSION: Multiple dilated loops of small and large bowel may represent ileus. Electronically Signed: Wiley De Leon MD at 18:51 EST , KUB X-Ray 10/25/21 19:25 IMPRESSION: NG tube placement within the mid gastric fundus Electronically Signed: Jose Enrique Holly MD at 20:54 EST , Physical Exam Const alert, oriented x3 and no apparent distress General Appearance: cooperative Exam Limitations: no limitations HEENT normocephalic, head/scalp atraumatic and moist oral mucous membranes; Negative for hearing grossly normal bilaterally Head and Scalp: normocephalic Eyes PERRL, EOMs intact bilaterally and conjunctivae normal Eyes Narrative: No scleral icterus Neck no lymphadenopathy, supple, no JVD and no carotid bruits Neck Narrative: Resp normal respiratory effort, no retractions, no use of accessory muscles and clear to auscultation bilaterally Resp Narrative: Diminished but clear Auscultation: Negative for crackles, rales, rhonchi or wheezes Cardio regular rate, regular rhythm, S1 normal heart sound, S2 normal heart sound, no murmurs, no rub, no gallops, no clicks and no JVD GI normal to inspection, nondistended, normoactive bowel sounds, soft to palpation and non-tender GI Narrative: Intact dressing over surgical site. soft, non tender, NG tube in situ. Mild abdominal distension Extremity normal to inspection, full ROM and no clubbing, cyanosis or edema Extremity Narrative: 1+ bilateral pedal pulses, trace bilateral lower extremity edema, no cyanosis or clubbing Peripheral Pulses: Yes pulses 2+ throughout Skin no rashes or lesions noted Neuro oriented x3, CN's II-XII intact bilaterally, moves all extremities and no focal motor deficits Neuro Narrative: Generalized weakness Sensorium / Orientation: awake and alert Speech: speech normal Psych affect normal Assessment & Plan Assessment/Plan (1) Ischemic necrosis of small bowel: (2) S/P small bowel resection: (3) Adynamic ileus: (4) History of small bowel obstruction: PLAN: #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 * CT abdomen and pelvis done showed colitis involving the rectosigmoid colon with a well-circumscribed fluid collection measuring 3.5 x 5.3 cm in the cul-de-sac and distended gallbladder with findings suggestive of tiny gallstones or sludge in the gallbladder lumen at the level of the neck of the gallbladder and bilateral pleural effusions with bibasilar atelectasis worse on the left side * had drainage of the fluid collection by radiology yesterday * received a dose of fluconazole yesterday o/a of elevated wbc, fever and tachycardia. * Dc zosyn and start IV meropenem. * ID consulted * general surgery on board; to have exploratory laparotomy today in light of worsening leucocytosis. * stool studies negative. * * * #Dysuria * urinalysis was negative for evidence of UTI * dysuria has resolved. 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 * fall precautions * to follow up with orthopedic surgery on outpatient basis * #Paroxysmal afib * on eliquis and metoprolol * has been tachycardic; will put on IV metoprolol 5mg every 6 hours as needed for HR >120 * currently NPO, so cant take his oral meds, hence the poorly controlled herat rate. #CAD s/p CABG: Blood pressure medications. On statin #Hyper lipidemia: On statin #Hypertension: On metoprolol and hydrochlorothiazide as well as amlodipine and ramipril #GERD: On PPI #Severe protein calorie malnutrition: On regular diet. On TPN as well. Mihai barrios on board. DVT prophylaxis: Lovenox Charges/Coding Visit Charges Inpatient E&M: [id number] [facility] Hosp L3
--- NOTE | 2021-10-26 11:30 | CASEMGMT ---
Social Work Note SW spoke with Yuki with TCU, confirmed that pt cannot admit to TCU over the weekend with TPN. Plan: TCU when medically cleared. Pt cannot return to TCU with TPN over the weekends. Shayy Bowman MACHINE PACKER, TAX MANAGER
[2021-10-26 12:16] LABS: Bedside Glucose 131 mg/dL (70-110)
[2021-10-26 12:45] LABS: Pathologist Review Reviewed
[2021-10-26] MEDS: 0.9% Normal Saline 1,000 ML 15 ML IV ×2 (13:00→16:52)
--- NOTE | 2021-10-26 14:06 | PCM.PN.ID ---
ID ID: Route of nutrition/ use of supplements: [] Nutritional Intake: [] IV Site: [] Mahan Catheter: [] Assessment & Plan Assessment/Plan (1) Leukocytosis: PLAN: Pt has been gone to OR this afternoon. Reviewed chart, agree with meropenem as empiric therapy. Cdiff neg, GNR on cxs so far. Will do full consult 10/29/21, please call with any issues in the meantime, thank you
--- NOTE | 2021-10-26 15:01 | OP.PCM_ITS ---
Report of Operation Date of Procedure: 10/26/21 Pre-Operative Diagnosis: Leukocytosis, tachycardia, abdominal pain, pelvic absc ess Post-Operative Diagnosis: Patches of necrotic ileum--at previous anastomosis and distal to cecum Surgery/Procedure Performed:: Ileocecectomy, placement of THEA drain Description of Surgical Findings:: Patient was found to have multiple ischemic patches of his ileum at the anastomosis as well as distal until the cecum. Patient's previous anastomosis was 70 cm from the cecum all of this ileum was removed with an additional 10 cm proximal. Patient does not have any ileum left. Surgeon: Justyna Denney education courses sales representative: Alvin Pearson education courses sales representative: Lorelei Pritchett Type of Anesthesia: General/Supplemental Anesthesiologist: Lonnie Arreaga Special Medications: Patient is on meropenem for leukocytosis/abdominal abscess Specimen's removed: Ileocecectomy with terminal ileum Estimated Blood Loss (mL): 40 cc Description of Procedure: Patient is brought to the operating placed supine on operating table. Timeout was completed verifying correct patient, procedure, position, special, prior beginning procedure. General anesthesia was induced. Previous retention sutures were removed and abdomen was prepped in normal sterile fashion with Betadine. Previous incision was opened after cutting previous suture and a large wound protector was placed. There was noted to be patches of bowel at the anastomosis as well as in the ileum up until the cecum--about 80 cm total (including all the ileum). During the procedure there was some leakage of stool from the anastomosis initially during mobilization. MORIS 75 stapler was used to divide just proximal to the previous anastomosis and the mid ascending colon. Impact LigaSure was used to divide the mesentery. Jejunocolic anastomosis was performed between the distal jejunum and mid ascending colon. Enterotomies were made in the jejunum as well as the ascending colon MORIS 75 stapler again was used. Enterotomy was closed with a TL 60. Patient did not have good blood supply to the anastomosis time. The remaining small bowel is also viable. The abdomen was irrigated with copious amounts of saline 4 L along with the pelvic abscess. A 15 Turkish THEA was placed exiting the right lower quadrant and placed in the pelvis- secured with a 3-0 nylon. Gowns and gloves were changed. Additional retention sutures 2 Ethilon were placed x2. Incision was closed with a running suture of 1 PDS. Skin was left open and Betadine soaked gauze was placed. Patient did need occasional jv gtt due to hypotension during surgery however currently is off post surgery. Mahan catheter was placed. Patient was taken to the PACU in stable condition with plans to go to the ICU after. Complications none
--- NOTE | 2021-10-26 15:17 | NURSING ---
transfer to icu after surgery
[2021-10-26] MEDS: fentaNYL 100 MCG/2 ML Ampul 25 MCG IV (16:00)
[2021-10-26 18:21] LABS: Bedside Glucose 74 mg/dL (70-110)
[2021-10-26] MEDS: Atorvastatin Calcium 40 MG Tablet PO (20:59)
[2021-10-26] MEDS: DiphenhydrAMINE 25 MG Capsule PO (21:30)
--- NOTE | 2021-10-26 22:26 | CPS ---
PATIENT FOUND ON 6 LPM NC AT TIME OF VISIT. RT ADDED OXYGEN HUMIDITY.
[2021-10-27] VITALS (28 sets, daily range): BP systolic 77–107; BP diastolic 49–69; PULSE 86–135; RESP 17–26; TEMP 36.7–37.2; O2SAT 86–96
[2021-10-27 00:31] LABS: Bedside Glucose 86 mg/dL (70-110)
[2021-10-27] MEDS: Morphine 2 MG/ML Syringe IV (03:23)
[2021-10-27] MEDS: 0.9% Saline Lock 10 ML Syringe IV ×2 (03:23→20:21)
[2021-10-27 03:38] LABS: Basophil# 0.03 X10^3/uL; Hematocrit 27.5 % (40-54); Hemoglobin 8.9 g/dL (13.0-16.5); Mean Corp Hgb Conc 32.4 g/dL (32-36); Mean Corpuscular Hgb 29.8 pg (27.0-32.0); Mean Platelet Vol. 10.7 fl (6.2-12.0); Monocyte# 0.55 X10^3/uL; NRBC Flagged by Analyzer 0 % (0-5); POSITIVE MORPHOLOGY YES; Platelet Count 382 K/mm3 (150-450); RBC Distribution Width CV 17.2 % (11.6-14.6); RBC Distribution Width SD 58.1 fl (35.1-43.9); Red Blood Count 2.99 M/mm3 (4.6-6.2); White Blood Count 18.2 K/mm3 (4.4-11.0)
[2021-10-27 03:39] LABS: Differential Indicated SCAN CRITERIA MET
[2021-10-27] MEDS: CHLORHEXIDINE GLUC 2% CLOTH 1 EACH TOWELETTE TOPICAL (03:54)
[2021-10-27 04:07] LABS: ALB/GLOB Ratio 0.3 RATIO (0.9-2.4); AST(SGOT) 1172 U/L (15-37); Alanine Aminotransfer ALT/SGPT 573 U/L (16-61); Albumin, Serum 1.5 g/dL (3.2-5.0); Alkaline Phosphatase 142 U/L (45-117); Anion Gap 7 (5-15); BUN 64 mg/dL (7-18); BUN/Creat Ratio 36.6 RATIO (10-20); Calcium,Total 7.3 mg/dL (8.5-10.1); Chloride 108 mmol/L (98-107); Creatinine, Serum 1.75 mg/dL (0.70-1.30); EST Glomerular Filtration Rate 40 mL/min (>60); Est Glom Filt Rate - Afr Amer 48 mL/min (>60); Estimated Creatinine Clearance 28.68 ml/min; Globulin 4.3 g/dL (2.2-4.2); Glucose 82 mg/dL (74-106); Potassium 5.3 mmol/L (3.5-5.1); Protein, Total 5.8 g/dL (6.4-8.2); Sodium Level 138 mmol/L (136-145); Triglycerides 48 mg/dL
[2021-10-27 04:10] LABS: Scan Smear per Review Criteria MANUAL DIFF
[2021-10-27 04:16] LABS: Lymphocyte 9 % (19-41); Metamyelocyte 4 % (0-1); Monocyte 3 % (0-10); Neutrophil-Band 20 % (0-5); Neutrophil-Segmented 64 % (47-70); Total Cells Counted 100 (MANUAL DIFF)
[2021-10-27 04:17] LABS: Platelet Estimate ADEQUATE (ADEQ)
[2021-10-27 04:19] LABS: Red Cell Morphology NORM C+C NORMAL (NORM C&C)
[2021-10-27 04:34] LABS: Neutrophil # 15.99 X10^3/uL (2.7-7.7)
[2021-10-27 04:35] LABS: Lymphocyte # 1.55 X10^3/ul (0.83-4.51)
[2021-10-27 04:36] LABS: Absolute Lymphocyte Count 1.55 X10^3/uL (0.83-4.51)
--- NOTE | 2021-10-27 05:46 | EX.PCM.CONCC ---
Assessment & Plan Assessment/Plan (1) Sepsis: PLAN: RECOMMENDATIONS: 1. Continue antimicrobials per ID recommendations. 2. Vasopressors can be utilized, if needed, to maintain a mean arterial pressure at or above 65 mmHg. 3. Wean supplemental oxygen to maintain saturations at or above 90%. 4. Encourage incentive spirometer use while in bed. 5. Resume TPN. 6. Continue to hold antihypertensives. 7. Goals of care discussion with the patient and family. IMPRESSIONS: 1. Sepsis The patient has sepsis due to gram-negative intra-abdominal abscess in the setting of necrotic bowel requiring surgical intervention with acute sepsis related organ dysfunction as evidenced by acute kidney injury, acute liver injury, and systolic blood pressure less than 90 mmHg. The patient remains on broad-spectrum antimicrobials per ID recommendations. The patient never required vasopressor support overnight as he has maintained systolic pressures greater than 90 and a mean arterial pressure greater than 65. Plan to continue current supportive measures. 2. Ischemic bowel, now postop day #1 status post ileocecectomy and THEA drain placement Continue routine postoperative care per general surgery recommendations. The patient will likely need to be resumed on TPN for nutritional support. 3. Acute kidney injury/acute liver injury Appears to be secondary to #1. No acute intervention is warranted at this time. Continue to trend renal and liver function for now. Vasopressor support can be utilized if needed to maintain hemodynamic stability. 4. Acute hypoxemic respiratory failure The patient is currently documented to be overall net +18.6 L for the hospitalization. In addition, he has had extensive abdominal surgery and likely has a significant amount of atelectasis. Plan to continue supplemental oxygen to maintain saturations at or above 90%. Encourage incentive spirometer use. Hemodynamic instability would preclude the use of diuretics at the present time. 4. Periprosthetic fracture of left femur status post hip replacement Continue work with PT and follow-up with orthopedic surgery on outpatient basis. 5. History of paroxysmal atrial fibrillation/coronary artery disease/hypertension/GERD Complicates care, management, recovery and prognosis. Continue to hold home antihypertensives. Continue PPI therapy. This note was generated with MYFLYation software. It may contain incorrect words, spelling, and punctuation that were not noted in checking the note before signing. HPI Consult Data Date of Consult: 10/27/21 HPI Narrative HPI Narrative: The patient is an 86-year-old male, with a history as outlined below, who initially presented to the emergency department on October 13 with abdominal pain. The patient has a complex medical history dating back to September 2021 when he was admitted after a fall on his left hip which had recently been operated on and was subsequently found to have a proximal intertrochanteric fracture. The patient was discharged to the TCU where he later developed abdominal pain, nausea and vomiting secondary to a small bowel obstruction which required surgical intervention in the form of an ex lap and lysis of adhesions, which was completed at the end of September 2021. Again, he was discharged to the TCU only to again develop abdominal pain, prompting return to the emergency department for reevaluation. The patient was ultimately reevaluated by general surgery and found to have a small bowel obstruction with gangrenous small bowel and jejunum. He was taken to the OR on October 15 and underwent diagnostic laparoscopy with resection of small bowel and anastomosis. More recently his hospital course has been complicated by the development of an intra-abdominal abscess, which required CT-guided drainage on October 25. Despite this, the patient continued to decompensate from a clinical perspective. Accordingly, the patient was once again taken back to the OR on October 26 where areas of necrotic ileum were found. An ileocecectomy was performed and a THEA drain was placed. Overnight, the patient's blood pressures have been somewhat labile, but he has never required vasopressor support. The patient is alert this morning but is difficult to understand at times with garbled speech. He did deny the presence of abdominal pain. He is requesting to be allowed to have some ice chips. [facility] Medical History (Updated 10/27/21 @ 07:[address] Patrice Hyman, ) Arthritis Atherosclerosis of coronary artery of [place] heart without angina pectoris Chronic atrial flutter Depression Essential hypertension Hearing loss, left Hearing loss, right History of [place] (myocardial infarction) (1983) Hyperlipidemia Left ventricular hypertrophy New onset atrial flutter (02/08/20) Obesity Osteoarthritis Osteoporosis Periprosthetic fracture around internal prosthetic left hip joint Venous insufficiency of both lower extremities Home Medications amlodipine 10 mg PO DAILY 06/23/13 [History Last Taken 10/05/21 10:00] pentoxifylline 400 mg PO BID 06/23/13 [History Last Taken 10/05/21 10:00] rosuvastatin 20 mg PO QHS 06/23/13 [History Last Taken 10/04/21 22:00] metoprolol tartrate 100 mg-hydrochlorothiazide 25 mg tablet 1 tab PO DAILY 02/24/20 [History Last Taken 08/13/21] multivitamin 1 tab PO DAILY 02/24/20 [History Last Taken Unknown] omega-3 fatty acids-fish oil 360 mg-1,200 mg capsule 1 cap PO DAILY 02/24/20 [History Last Taken Unknown] ramipril 10 mg capsule 10 mg PO DAILY cap 02/24/20 [History Last Taken 10/05/21 10:00] furosemide 20 mg tablet 20 mg PO DAILY PRN PRN tab 07/19/21 [History Last Taken Unknown] famotidine 20 mg PO DAILY 09/08/21 [History Last Taken Unknown] ferrous sulfate [FeroSul] 325 mg PO BID 09/08/21 [History Last Taken Unknown] folic acid 1 mg PO DAILY 09/08/21 [History Last Taken Unknown] sennosides [Senokot] 8.6 mg PO BID PRN 09/08/21 [History Last Taken 10/04/21 09:00] tramadol 50 mg PO Q6H PRN PRN 09/08/21 [History Last Taken Unknown] Eliquis 2.5 mg PO BID 10 Days #20 tab 09/25/21 [Rx Last Taken 10/05/21 10:00] acetaminophen 1,000 mg PO Q8 09/28/21 [History Last Taken 10/05/21 10:00] aspirin 325 mg PO DAILY 09/28/21 [History Last Taken Unknown] pantoprazole 40 mg PO DAILY 09/28/21 [History Last Taken 10/05/21 10:00] polysaccharide iron complex [Ferrex 150] 150 mg PO BIDCM 09/28/21 [History Last Taken Unknown] Allergy/AdvReac Type Severity Reaction Status Date / Time No Known Drug Allergies Allergy NONE Verified 10/13/21 07:24 Family History Mother CAD (coronary artery disease) Sister Cancer lung Surgical History (Updated 10/16/21 @ 14:[address] Justyna Denney MD) H/O coronary artery bypass surgery (1983) History of appendectomy History of carpal tunnel release History of exploratory laparotomy History of left heart catheterization (08/13/21) History of right hip replacement History of surgical removal of skin lesion History of total bilateral knee replacement History of total left hip replacement S/P small bowel resection Social History household members: spouse Smoking Status: Former smoker alcohol intake: never substance use type: does not use ROS Constitutional Constitutional: Denies chills or fever(s) Eyes Eyes: Denies blurry vision or change in vision ENT HEENT: Denies dysphagia, epistaxis or headache(s) Cardiovascular Cardiovascular: Reports irregular heart rhythm; Denies chest pain Respiratory/Chest Respiratory/Chest: Denies cough or dyspnea Gastrointestinal Gastrointestinal: Reports abdominal pain Genitourinary Genitourinary: Reports difficulty urinating; Denies urinary frequency Musculoskeletal Musculoskeletal: Denies arthralgias or joint pain Integumentary Integumentary: Denies lesions or skin ulcer Neurologic Neurologic: Reports abnormal speech and confusion Psychiatric Psychiatric: Denies anxiety or depression Endocrine Endocrinology: Denies fatigue or polydipsia Hematologic/Lymphatic Hematologic/Lymphatic: Denies easy bleeding or easy bruising Physical Exam Const alert Constitutional Narrative: Appears quite uncomfortable in bed. General Appearance: ill appearing and frail HEENT normocephalic and head/scalp atraumatic Mouth: dry mucous membranes Eyes PERRL, EOMs intact bilaterally and conjunctivae normal Neck supple General: trachea midline Chest inspection of chest normal Resp Resp Narrative: Poor patient dependent inspiratory effort. Effort and Inspection: tachypneic Auscultation: diminished lung sounds Cardio regular rate and regular rhythm Heart Sounds: murmur GI soft to palpation GI Narrative: Wound is dressed with THEA drain in place. Extremity no clubbing, cyanosis or edema Skin no rashes or lesions noted Neuro moves all extremities and no focal motor deficits Psych cooperative Medical Records Data Medical Nutrition Assessment Dietitian: Malnutrition Criteria Met Start: 10/13/21 14:59 Freq: Status: Active Protocol: Document 10/26/21 10:52 AG (Rec: 10/26/21 10:52 [id number]) Nutrition Malnutrition Evidence of Malnutrition Exists Yes Malnutrition (severe): Acute Illness/Injury Evidenced By Suboptimal Energy Intake ( Severe),Weight Loss (Severe), Physical Changes (Mild) Clinical Problem Acute Disease or Injury Related Malnutrition Etiology severe, acute malnutrition r/t inadequate energy intake d/t recent hospitalizations, SBO, GI dysfunction Signs/Symptoms as evidenced by unintentional 22.9#/12.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 2) Recommend advance PO diet as tolerated to transitional. Resume Ensure w/ medpass when PO diet advanced- will d/c ONS at this time d/t NPO status. 3) Continue daily wts. Close monitoring of electrolytes. Lab / Micro Data Result Diagrams: 10/27/21 03:25 10/27/21 03:25 Labs: Laboratory Results - last 24 hr 10/26/21 05:16: Diff Path Review Reviewed, Anisocytosis 1+ 10/26/21 05:16: Sodium 133 L, Potassium 4.4, Chloride 103, Carbon Dioxide 24.0, Anion Gap 6, BUN 38 H, Creatinine 0.86, Estim Creat Clear Calc 58.36, Est GFR (MDRD) Af Amer 109, Est GFR (MDRD) Non-Af 90, BUN/Creatinine Ratio 44.3 H, Glucose 131 H, Calcium 8.0 L, Total Bilirubin 0.50, AST 28, ALT 22, Alkaline Phosphatase 175 H, Total Protein 6.6, Albumin 1.6 L, Globulin 5.0 H, Albumin/Globulin Ratio 0.3 L 10/26/21 12:05: POC Glucose 131 H 10/26/21 18:11: POC Glucose 74 10/27/21 00:13: POC Glucose 86 10/27/21 03:25: WBC 18.2 H, RBC 2.99 L, Hgb 8.9 L, Hct 27.5 L, MCV 92.0, MCH 29.8, MCHC 32.4, RDW Std Deviation 58.1 H, RDW Coeff of Denise 17.2 H, Plt Count 382, MPV 10.7, Immature Gran % (Auto) FURNACE COMBINATION ANALYST, Neut % (Auto) FURNACE COMBINATION ANALYST, Lymph % (Auto) FURNACE COMBINATION ANALYST, [place] % (Auto) FURNACE COMBINATION ANALYST, Eos % (Auto) FURNACE COMBINATION ANALYST, Baso % (Auto) FURNACE COMBINATION ANALYST, Absolute Neuts (auto) 16.0 H, Absolute Lymphs (auto) 1.55, Total Counted 100, Neutrophils % (Manual) 64, Band Neutrophils % 20 H, Lymphocytes % (Manual) 9 L, Monocytes % (Manual) 3, Metamyelocytes % 4 H, Nucleated RBC % 0, Diff Path Review May foll, Platelet Estimate ADEQUATE, RBC Morphology NORM C+C 10/27/21 03:25: Sodium 138, Potassium 5.3 H, Chloride 108 H, Carbon Dioxide 23.0, Anion Gap 7, BUN 64 H, Creatinine 1.75 H, Estim Creat Clear Calc 28.68, Est GFR (MDRD) Af Amer 48 L, Est GFR (MDRD) Non-Af 40 L, BUN/Creatinine Ratio 36.6 H, Glucose 82, Calcium 7.3 L, Total Bilirubin 0.50, AST 1172 H, ALT 573 H, Alkaline Phosphatase 142 H, Total Protein 5.8 L, Albumin 1.5 L, Globulin 4.3 H, Albumin/Globulin Ratio 0.3 L, Triglycerides 48 Micro: Microbiology 10/25/21 Unknown Aspirate - Abdominal Gram Stain - Final 10/25/21 Unknown Aspirate - Abdominal Wound Culture - Preliminary Gram negative saranya Radiology Impression Gallbladder Ultrasound 10/25/21 12:09 IMPRESSION: Minimal cholelithiasis and/or sludge. No ultrasound evidence of cholecystitis. Electronically Signed: Jazz Diamond MD at 7:54 EST Reading Location ID and State: [facility] / [place] Tel , Service support , Charges/Coding Visit Charges Inpatient E&M: 47585 Init Hosp L3
--- NOTE | 2021-10-27 07:29 | PN.SURG_ITS ---
Subjective Subjective Patient has been maintaining blood pressure and heart rate but on the lower side low 100s. Patient's urine output has been borderline. Patient's white blood count is improved to 18 from 30 does have bands currently. Patient's LFTs are also elevated likely some shock liver. THEA serosanguineous Objective Data Objective Data Vital Signs: Vital Signs Temp Pulse Resp BP Pulse Ox 98.6 F 98 23 H 98/61 92 10/27/21 04:00 10/27/21 07:00 10/27/21 07:00 10/27/21 07:00 10/27/21 07:00 Oxygen Flow Rate (L/min) 6 Oxygen Delivery Method [5] Room Air Oxygen Delivery Method [4] Room Air Oxygen Delivery Method [3] Room Air Oxygen Delivery Method [2] Room Air Oxygen Delivery Method [1 ( Room Air Initial Baseline)] Oxygen Delivery Method Nasal Cannula Weight: 151 lb Body Mass Index (BMI) 20.7 Intake & Output: Intake and Output for Last 24 Hours 10/25/21 10/26/21 10/27/21 23:59 23:59 23:59 Intake Total 2230.1 / 2350.1 3063.25 / 3123.25 333.75 / 333.75 Output Total 925 / 1175 1380 / 1480 800 / 800 Balance 1305.1 / 1175.1 1683.25 / 1643.25 -466.25 / -466.25 Medical Nutrition Assessment Dietitian: Malnutrition Criteria Met Start: 10/13/21 14:59 Freq: Status: Active Protocol: Document 10/26/21 10:52 (Rec: 10/26/21 10:52 [id number]) Nutrition Malnutrition Evidence of Malnutrition Exists Yes Malnutrition (severe): Acute Illness/Injury Evidenced By Suboptimal Energy Intake ( Severe),Weight Loss (Severe), Physical Changes (Mild) Clinical Problem Acute Disease or Injury Related Malnutrition Etiology severe, acute malnutrition r/t inadequate energy intake d/t recent hospitalizations, SBO, GI dysfunction Signs/Symptoms as evidenced by unintentional 22.9#/12.5% 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 2) Recommend advance PO diet as tolerated to transitional. Resume Ensure w/ medpass when PO diet advanced- will d/c ONS at this time d/t NPO status. 3) Continue daily wts. Close monitoring of electrolytes. Lab / Micro Data Result Diagrams: 10/27/21 03:25 10/27/21 03:25 Labs: Laboratory Results - last 24 hr 10/26/21 05:16: Diff Path Review Reviewed 10/26/21 12:05: POC Glucose 131 H 10/26/21 18:11: POC Glucose 74 10/27/21 00:13: POC Glucose 86 10/27/21 03:25: WBC 18.2 H, RBC 2.99 L, Hgb 8.9 L, Hct 27.5 L, MCV 92.0, MCH 29.8, MCHC 32.4, RDW Std Deviation 58.1 H, RDW Coeff of Denise 17.2 H, Plt Count 382, MPV 10.7, Immature Gran % (Auto) JEWEL BEARING BROACHER, Neut % (Auto) JEWEL BEARING BROACHER, Lymph % (Auto) JEWEL BEARING BROACHER, Crisp % (Auto) JEWEL BEARING BROACHER, Eos % (Auto) JEWEL BEARING BROACHER, Baso % (Auto) JEWEL BEARING BROACHER, Absolute Neuts (auto) 16.0 H, Absolute Lymphs (auto) 1.55, Total Counted 100, Neutrophils % (Manual) 64, Band Neutrophils % 20 H, Lymphocytes % (Manual) 9 L, Monocytes % (Manual) 3, Metamyelocytes % 4 H, Nucleated RBC % 0, Diff Path Review May foll, Platelet E stimate ADEQUATE, RBC Morphology NORM C+C 10/27/21 03:25: Sodium 138, Potassium 5.3 H, Chloride 108 H, Carbon Dioxide 23.0, Anion Gap 7, BUN 64 H, Creatinine 1.75 H, Estim Creat Clear Calc 28.68, Est GFR (MDRD) Af Amer 48 L, Est GFR (MDRD) Non-Af 40 L, BUN/Creatinine Ratio 36.6 H, Glucose 82, Calcium 7.3 L, Total Bilirubin 0.50, AST 1172 H, ALT 573 H, Alkaline Phosphatase 142 H, Total Protein 5.8 L, Albumin 1.5 L, Globulin 4.3 H, Albumin/Globulin Ratio 0.3 L, Triglycerides 48 Micro: Microbiology 02/24/22 Unknown Aspirate - Abdominal Gram Stain - Final 10/25/21 Unknown Aspirate - Abdominal Wound Culture - Preliminary Escherichia coli 10/25/21 05:32 Stool Enteric Bacteriology - Final 10/25/21 05:32 Stool C. difficile DNA Amplification - Final 10/25/21 05:32 Stool Stool Lactoferrin - Final Radiography Diagnostic Testing: Radiology Impression Gallbladder Ultrasound 10/25/21 12:09 IMPRESSION: Minimal cholelithiasis and/or sludge. No ultrasound evidence of cholecystitis. Electronically Signed: Jazz Diamond MD at 7:54 EST , Physical Exam Const alert and oriented x3 Resp Effort and Inspection: tachypneic Cardio Rate: tachycardic GI GI Narrative: Soft, nondistended, tender near incision, incision packed with Betadine soaked 4 x 4. THEA serosanguineous Extremity no clubbing, cyanosis or edema Neuro oriented x3 Psych affect normal Assessment & Plan Assessment/Plan (1) S/P small bowel resection: (2) Ischemic necrosis of small bowel: (3) Sepsis: (4) Leukocytosis: (5) History of atrial fibrillation: PLAN: Patient is continue to be able to maintain blood pressures in the low 100s not on any pressors. Patient's output is minimal for urine. Patient's prognosis is guarded. Patient did have additional necrotic bowel during surgery would not plan for more surgical intervention for this. Today patient's white blood count is improved on meropenem however he does have bands and he does have shock liver. IV fluids at 100 cc total currently on normal saline will restart TPN later today and drop fluids down to 60 cc. Appreciate hospitalist/ICU's assistance Addendum: Did update as well as [id number] with patient's guarded prognosis. Currently patient is a full code discussed with patient he stated he would not want to be intubated but would be okay with CPR. We will plan to change CODE STATUS as patient is ANO x3 currently. Justyna Denney M.D. Pager: [phone] [facility] [address] [place] [address], [address] [place] [address] Office: [phone]
[2021-10-27] MEDS: 0.9% Normal Saline 1,000 ML 100 ML IV ×2 (08:02→12:48)
[2021-10-27] MEDS: fentaNYL 100 MCG/2 ML Ampul 25 MCG IV ×5 (09:03→23:16)
--- NOTE | 2021-10-27 09:10 | RAD_ITS ---
STUDY: X-RAY CHEST REASON FOR EXAM: Male, 86 years old. Hypoxia TECHNIQUE: Single AP portable view of the chest. COMPARISON: 10/25/2021. FINDINGS: Nasogastric tube extends below the level of the diaphragm. Right-sided PICC line with its tip in the superior vena cava. Hypoventilatory and atelectatic changes in right lung base. There is no demonstrated pleural abnormality. Sternal cerclage wires and vascular clips are present from a prior sternotomy and coronary artery bypass graft procedure (CABG). Normal mediastinum and gloria. Normal visualized pulmonary arteries. There is atherosclerotic calcification of the aortic arch with tortuosity. There is demineralization of the osseous structures. There is degenerative osteoarthritis of the bilateral shoulders. Air under the right hemidiaphragm concerning for pneumoperitoneum. RAD/Chest 1 View (Portable) IMPRESSION: Pneumoperitoneum. Mild atelectatic changes in left lung base.. N.B. : The above Results were Read Back by Saurav Gaston to Marbella Myers;[phone], and understanding confirmed on 10/27/2021 10:03:53 (ET). Electronically Signed: Saurav Gaston, at 9:43 EST ,
[2021-10-27] MEDS: Menthol/Lanolin/Calamine/Znox 113 GM Tube 1 APPLIC TOPICAL ×2 (10:12→22:28)
[2021-10-27] MEDS: Enoxaparin 40 MG/0.4 ML Syringe SC (10:12)
[2021-10-27] MEDS: Ramipril 10 MG Capsule PO (10:12)
--- NOTE | 2021-10-27 10:15 | PN.HOSP_ITS ---
Subjective Subjective Patient seen and examined. He had exploratory laparotomy yesterday due to his persistent leucocytosis and tachycardia. He was found to have patches of necrotic ileum at previous anastomosis and distal to the cecum, and he had an ileocecectomy and placement of THEA drain. He was drowsy but arousable today. He denied any pain or shortness of breath, chest pain, nausea vomiting. Patient noted to be on about 8 L of oxygen though he denied any shortness of breath. He is not coughing. He has an NG tube in place. Review of systems otherwise negative. Objective Data Objective Data Vital Signs: Vital Signs Temp Pulse Resp BP Pulse Ox 98.5 F 111 H 22 H 96/49 L 91 10/27/21 08:00 10/27/21 09:00 10/27/21 09:00 10/27/21 09:00 10/27/21 09:00 Oxygen Flow Rate (L/min) 8 Oxygen Delivery Method [5] Room Air Oxygen Delivery Method [4] Room Air Oxygen Delivery Method [3] Room Air Oxygen Delivery Method [2] Room Air Oxygen Delivery Method [1 ( Room Air Initial Baseline)] Oxygen Delivery Method Nasal Cannula Weight: 151 lb Body Mass Index (BMI) 20.7 Intake & Output: Intake and Output for Last 24 Hours 10/25/21 10/26/21 10/27/21 23:59 23:59 23:59 Intake Total 2230.1 / 2350.1 3063.25 / 3123.25 953.75 / 953.75 Output Total 925 / 1175 1380 / 1480 800 / 800 Balance 1305.1 / 1175.1 1683.25 / 1643.25 153.75 / 153.75 Medical Nutrition Assessment Dietitian: Malnutrition Criteria Met Start: 10/13/21 14:59 Freq: Status: Active Protocol: Document 10/27/21 09:01 [facility] (Rec: 10/27/21 09:01 [facility] [id number]) Nutrition Malnutrition Evidence of Malnutrition Exists Yes Malnutrition (moderate): Acute Illness/Injury Malnutrition (severe): Acute Illness/Injury Evidenced By Suboptimal Energy Intake ( Severe),Weight Loss (Severe), Physical Changes (Mild) Clinical Problem Acute Disease or Injury Related Malnutrition Etiology severe, acute malnutrition r/t inadequate energy intake d/t recent hospitalizations, SBO, GI dysfunction Signs/Symptoms as evidenced by unintentional 22.9#/12.5% wt loss x 2 months [employer];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 2) Continue daily weights and monitoring of electrolytes. 3.) NPO at this time. Lab / Micro Data Result Diagrams: 10/27/21 03:25 10/27/21 03:25 Labs: Laboratory Results - last 24 hr 10/26/21 05:16: Diff Path Review Reviewed 10/26/21 12:05: POC Glucose 131 H 10/26/21 18:11: POC Glucose 74 10/27/21 00:13: POC Glucose 86 10/27/21 03:25: WBC 18.2 H, RBC 2.99 L, Hgb 8.9 L, Hct 27.5 L, MCV 92.0, MCH 29.8, MCHC 32.4, RDW Std Deviation 58.1 H, RDW Coeff of Denise 17.2 H, Plt Count 382, MPV 10.7, Immature Gran % (Auto) [employer]IL [employer] OPERATOR, Neut % (Auto) WASH OIL COOLER OPERATOR, Lymph % (Auto) WASH OIL COOLER OPERATOR, [place] % (Auto) WASH OIL COOLER OPERATOR, Eos % (Auto) WASH OIL COOLER OPERATOR, Baso % (Auto) WASH OIL COOLER OPERATOR, Absolute Neuts (auto) 16.0 H, Absolute Lymphs (auto) 1.55, Total Counted 100, Neutrophils % (Manual) 64, Band Neutrophils % 20 H, Lymphocytes % (Manual) 9 L, Monocytes % (Manual) 3, Metamyelocytes % 4 H, Nucleated RBC % 0, Diff Path Review May foll, Platelet Estimate ADEQUATE, RBC Morphology NORM C+C 10/27/21 03:25: Sodium 138, Potassium 5.3 H, Chloride 108 H, Carbon Dioxide 23.0, Anion Gap 7, BUN 64 H, Creatinine 1.75 H, Estim Creat Clear Calc 28.68, Est GFR (MDRD) Af Amer 48 L, Est GFR (MDRD) Non-Af 40 L, BUN/Creatinine Ratio 36.6 H, Glucose 82, Calcium 7.3 L, Total Bilirubin 0.50, AST 1172 H, ALT 573 H, Alkaline Phosphatase 142 H, Total Protein 5.8 L, Albumin 1.5 L, Globulin 4.3 H, Albumin/Globulin Ratio 0.3 L, Triglycerides 48 Micro: Microbiology 10/25/21 Unknown Aspirate - Abdominal Gram Stain - Final 10/25/21 Unknown Aspirate - Abdominal Wound Culture - Preliminary Escherichia coli 10/25/21 05:32 Stool Enteric Bacteriology - Final 10/25/21 05:32 Stool C. difficile DNA Amplification - Final 10/25/21 05:32 Stool Stool Lactoferrin - Final Physical Exam Const alert, oriented x3 and no apparent distress General Appearance: cooperative Exam Limitations: no limitations HEENT normocephalic, head/scalp atraumatic and moist oral mucous membranes; Negative for hearing grossly normal bilaterally Head and Scalp: normocephalic Eyes PERRL, EOMs intact bilaterally and conjunctivae normal Neck no lymphadenopathy, supple, no JVD and no carotid bruits Neck Narrative: Resp Resp Narrative: mildly diminished breath sounds bibasally, no wheezes or crackles. On 10L of oxygen by nasal canula Auscultation: Negative for crackles, rales, rhonchi or wheezes Cardio regular rate, regular rhythm, S1 normal heart sound, S2 normal heart sound, no murmurs, no rub, no gallops, no clicks and no JVD GI normal to inspection, nondistended, normoactive bowel sounds, soft to palpation and non-tender GI Narrative: Intact dressing over surgical site. soft, non tender, NG tube in situ. Mild abdominal distension Extremity normal to inspection, full ROM and no clubbing, cyanosis or edema Extremity Narrative: 1+ bilateral pedal pulses, trace bilateral lower extremity edema, no cyanosis or clubbing Peripheral Pulses: Yes pulses 2+ throughout Skin no rashes or lesions noted Skin Narrative: Well-healing incision left hip, bilateral lower extremity skin changes consistent with venous stasis that is chronic Neuro oriented x3, CN's II-XII intact bilaterally, moves all extremities and no focal motor deficits Neuro Narrative: Generalized weakness Sensorium / Orientation: awake and alert Speech: speech normal Psych Psych Narrative: drowsy Assessment & Plan Assessment/Plan (1) Ischemic necrosis of small bowel: (2) S/P small bowel resection: (3) Adynamic ileus: (4) History of small bowel obstruction: PLAN: #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 He therefore had Ileocecectomy and placement of THEA drain * on TPN; * wbc trended down to 18.2 today * CT abdomen and pelvis done showed colitis involving the rectosigmoid colon with a well-circumscribed fluid collection measuring 3.5 x 5.3 cm in the cul-de-sac and distended gallbladder with findings suggestive of tiny gallstones or sludge in the gallbladder lumen at the level of the neck of the gallbladder and bilateral pleural effusions with bibasilar atelectasis worse on the left side * had drainage of the fluid collection by radiology * on IV meropenem * general surgery on board * #Sepsis due to gangrenous bowel * WBC has now trended down to 18. * On IV meropenem. Repeat blood cultures are pending. * ID and critical care on board. Patient was hypotensive yesterday but did not require initiation of vasopressors. * Continue gentle hydration. * #Acute hypoxic respiratory failure * Patient currently on 8 L of oxygen. Unclear why. Chest x-ray done and read is pending. * Titrate oxygen to maintain saturation above 90%. Breathing treatments bronchodilators. * #Dysuria * urinalysis was negative for evidence of UTI * dysuria has resolved. 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 * fall precautions * to follow up with orthopedic surgery on outpatient basis * #Paroxysmal afib * on eliquis and metoprolol * has been tachycardic; will put on IV metoprolol 5mg every 6 hours as needed for HR >120 * currently NPO, so cant take his oral meds, hence the poorly controlled herat rate. #CAD s/p CABG: Blood pressure medications. On statin #Hyper lipidemia: On statin #Hypertension: On metoprolol and hydrochlorothiazide as well as amlodipine and ramipril #GERD: On PPI #Severe protein calorie malnutrition: On regular diet. On TPN as well. Dietitian on board. DVT prophylaxis: Lovenox Disposition: * Hospice and palliative care consulted due to poor prognosis. * Patient's family to come in today to decide about goals of care. Per general surgery, patient and family have already been informed about poor prognosis if he deteriorates any further. CODE STATUS: DNR CCA no intubation Charges/Coding Visit Charges Inpatient E&M: 23377 Subs Hosp L3
[2021-10-27 12:15] LABS: Bedside Glucose 86 mg/dL (70-110)
[2021-10-27 13:28] LABS: Anion Gap 6 (5-15); BUN 57 mg/dL (7-18); BUN/Creat Ratio 39.6 RATIO (10-20); Calcium,Total 5.9 mg/dL (8.5-10.1); Chloride 117 mmol/L (98-107); Creatinine, Serum 1.44 mg/dL (0.70-1.30); EST Glomerular Filtration Rate 50 mL/min (>60); Est Glom Filt Rate - Afr Amer 60 mL/min (>60); Estimated Creatinine Clearance 36.33 ml/min; Glucose 64 mg/dL (74-106); Potassium 4.3 mmol/L (3.5-5.1); Sodium Level 142 mmol/L (136-145)
--- NOTE | 2021-10-27 13:32 | NURSING ---
Call from lab , calcium 5.9.
[2021-10-27 14:41] LABS: Bedside Glucose 117 mg/dL (70-110)
[2021-10-27] MEDS: TPN - Clinimix E 8%-14% Soln 2,000 ML with Multivitamins 10 ML, Trace Elements 1 ML, Fo... 42 ML IV (15:50)
[2021-10-27 19:15] LABS: Bedside Glucose 124 mg/dL (70-110)
[2021-10-27] MEDS: Atorvastatin Calcium 40 MG Tablet PO (22:27)
[2021-10-28] VITALS (27 sets, daily range): BP systolic 85–113; BP diastolic 50–74; PULSE 73–117; RESP 15–23; TEMP 36.3–37.2; O2SAT 90–99
[2021-10-28 02:16] LABS: Bedside Glucose 89 mg/dL (70-110)
[2021-10-28 02:21] LABS: Bedside Glucose 123 mg/dL (70-110)
[2021-10-28] MEDS: 0.9% Normal Saline 1,000 ML 60 ML IV ×2 (03:35→21:29)
[2021-10-28] MEDS: fentaNYL 100 MCG/2 ML Ampul 25 MCG IV ×3 (04:29→23:20)
[2021-10-28 05:16] LABS: Absolute Lymphocyte Count 0.81 X10^3/uL (0.83-4.51); Absolute Neutrophil Count 12.5 X10^3/uL (2.0-7.7); Basophil# 0.01 X10^3/uL; Basophil% 0.1 % (0-1); Eosinophil# 0.01 X10^3/uL; Eosinophils% 0.1 % (0-5); Hematocrit 24.8 % (40-54); Hemoglobin 7.9 g/dL (13.0-16.5); Lymphocyte # 0.81 X10^3/ul (0.83-4.51); Lymphocyte % 5.9 % (19-41); Mean Corp Hgb Conc 31.9 g/dL (32-36); Mean Corpuscular Hgb 29.7 pg (27.0-32.0); Mean Corpuscular Volume 93.2 fL (80-94); Mean Platelet Vol. 10.5 fl (6.2-12.0); Monocyte# 0.35 X10^3/uL; Monocyte% 2.5 % (0-10); NRBC Flagged by Analyzer 0 % (0-5); Neutrophil # 12.48 X10^3/uL (2.7-7.7); Neutrophil % 90.7 % (47-70); POSITIVE MORPHOLOGY YES; Platelet Count 338 K/mm3 (150-450); RBC Distribution Width CV 17.4 % (11.6-14.6); Red Blood Count 2.66 M/mm3 (4.6-6.2); White Blood Count 13.8 K/mm3 (4.4-11.0)
[2021-10-28 05:25] LABS: Differential Indicated SCAN CRITERIA MET
[2021-10-28 05:40] LABS: Anion Gap 5 (5-15); BUN 61 mg/dL (7-18); BUN/Creat Ratio 58.7 RATIO (10-20); Calcium,Total 7.3 mg/dL (8.5-10.1); Chloride 112 mmol/L (98-107); Creatinine, Serum 1.04 mg/dL (0.70-1.30); EST Glomerular Filtration Rate 72 mL/min (>60); Est Glom Filt Rate - Afr Amer 87 mL/min (>60); Estimated Creatinine Clearance 51.64 ml/min; Glucose 116 mg/dL (74-106); Potassium 4.3 mmol/L (3.5-5.1); Sodium Level 140 mmol/L (136-145)
--- NOTE | 2021-10-28 05:45 | PCM.PN.INT ---
Assessment & Plan Assessment/Plan (1) Sepsis: PLAN: RECOMMENDATIONS: 1. Continue antimicrobials per ID recommendations. 2. Vasopressors can be utilized, if needed, to maintain a mean arterial pressure at or above 65 mmHg. 3. Wean supplemental oxygen to maintain saturations at or above 90%. 4. Encourage incentive spirometer use while in bed. 5. Continue TPN. 6. Continue to hold antihypertensives. 7. Continue to monitor H&H and transfuse if hemoglobin drops below 7 g/dL. IMPRESSIONS: 1. Sepsis The patient has sepsis due to ESBL E. coli intra-abdominal abscess in the setting of necrotic bowel requiring surgical intervention with acute sepsis related organ dysfunction as evidenced by acute kidney injury, acute liver injury, and systolic blood pressure less than 90 mmHg. The patient remains on broad-spectrum antimicrobials per ID recommendations. The patient has yet to require vasopressor support. Plan to continue current supportive measures. 2. Ischemic bowel, now postop day #2 status post ileocecectomy and THEA drain placement Continue routine postoperative care per general surgery recommendations. Continue TPN for nutritional support. 3. Acute kidney injury/acute liver injury Improving. Appears to be secondary to #1. No acute intervention is warranted at this time. Continue to trend renal and liver function for now. Vasopressor support can be utilized if needed to maintain hemodynamic stability. 4. Acute hypoxemic respiratory failure The patient is currently documented to be overall net +18.6 L for the hospitalization. In addition, he has had extensive abdominal surgery and likely has a significant amount of atelectasis. Plan to continue supplemental oxygen to maintain saturations at or above 90%. Encourage incentive spirometer use. Hemodynamic instability would preclude the use of diuretics at the present time. 5. Anemia Hemoglobin was noted to be down to 7.9 g/dL this morning. There is likely a dilutional component to this. Recommend continuing to monitor H&H daily. Transfuse if hemoglobin drops below 7 g/dL. Continue PPI therapy as ordered. 6. Periprosthetic fracture of left femur status post hip replacement Continue work with PT and follow-up with orthopedic surgery on outpatient basis. 7. History of paroxysmal atrial fibrillation/coronary artery disease/hypertension/GERD Complicates care, management, recovery and prognosis. Continue to hold home antihypertensives. Continue PPI therapy. This note was generated with [employer]ation software. It may contain incorrect words, spelling, and punctuation that were not noted in checking the note before signing. Subjective Subjective The patient was seen and examined at the bedside this morning. Events from the last 24 hours have been reviewed. The patient is currently afebrile, hemodynamically stable and maintaining appropriate oxygen saturations on 6 L/min. The patient is now documented to be overall net +20 L for the hospitalization. Hemoglobin is down to 7.9 g/dL this morning. White blood cell count has improved. Creatinine has normalized. Overnight, the patient's blood pressures were somewhat labile. He was given a small fluid bolus. He never required initiation of vasopressor support. Objective Data Objective Data The patient's most recent lab work, culture data and imaging studies have all been personally reviewed. Abdominal aspirate cultures were positive for ESBL E. coli. Vital Signs: Vital Signs Temp Pulse Resp BP Pulse Ox 98.7 F 102 H 16 100/69 95 10/28/21 00:00 10/28/21 04:00 10/28/21 02:00 10/28/21 02:00 10/28/21 02:00 Oxygen Flow Rate (L/min) 6 Oxygen Delivery Method [5] Room Air Oxygen Delivery Method [4] Room Air Oxygen Delivery Method [3] Room Air Oxygen Delivery Method [2] Room Air Oxygen Delivery Method [1 ( Room Air Initial Baseline)] Oxygen Delivery Method Simple Mask Weight: 70.307 kg Body Mass Index (BMI) 20.7 Intake & Output: Intake and Output for Last 24 Hours 10/26/21 10/27/21 10/28/21 23:59 23:59 23:59 Intake Total 3063.25 / 3123.25 2078.75 / 2078.75 1436.67 / 1436.67 Output Total 1380 / 1480 1295 / 1295 1235 / 1235 Balance 1683.25 / 1643.25 783.75 / 783.75 201.67 / 201.67 Medical Nutrition Assessment Dietitian: Malnutrition Criteria Met Start: 10/13/21 14:59 Freq: Status: Active Protocol: Document 10/27/21 09:01 RMA (Rec: 10/27/21 09:01 RMA [id number]) Nutrition Malnutrition Evidence of Malnutrition Exists Yes Malnutrition (moderate): Acute Illness/Injury Malnutrition (severe): Acute Illness/Injury Evidenced By Suboptimal Energy Intake ( Severe),Weight Loss (Severe), Physical Changes (Mild) Clinical Problem Acute Disease or Injury Related Malnutrition Etiology severe, acute malnutrition r/t inadequate energy intake d/t recent hospitalizations, SBO, GI dysfunction Signs/Symptoms as evidenced by unintentional 22.9#/12.5% wt loss x 2 months [employer];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 2) Continue daily weights and monitoring of electrolytes. 3.) NPO at this time. Lab / Micro Data Attestation: I reviewed the patient's lab results. Result Diagrams: 10/28/21 05:05 10/28/21 05:05 Labs: Laboratory Results - last 24 hr 10/27/21 06:22: POC Glucose 89 10/27/21 12:09: POC Glucose 86 10/27/21 13:00: Sodium 142, Potassium 4.3, Chloride 117 H, Carbon Dioxide 19.0 L, Anion Gap 6, BUN 57 H, Creatinine 1.44 H, Estim Creat Clear Calc 36.33, Est GFR (MDRD) Af Amer 60, Est GFR (MDRD) Non-Af 50 L, BUN/Creatinine Ratio 39.6 H, Glucose 64 L, Calcium 5.9 L* 10/27/21 14:32: POC Glucose 117 H 10/27/21 19:11: POC Glucose 124 H 10/28/21 02:12: POC Glucose 123 H 10/28/21 04:15: Sodium Cancelled, Potassium Cancelled, Chloride Cancelled, Carbon Dioxide Cancelled, Anion Gap Cancelled, BUN Cancelled, Creatinine Cancelled, Estim Creat Clear Calc Cancelled, Est GFR (MDRD) Af Amer Cancelled, Est GFR (MDRD) Non-Af Cancelled, BUN/Creatinine Ratio Cancelled, Glucose Cancelled, Calcium Cancelled, Total Bilirubin Cancelled, Direct Bilirubin Cancelled, AST Cancelled, ALT Cancelled, Alkaline Phosphatase Cancelled, Total Protein Cancelled, Albumin Cancelled, Globulin Cancelled 10/28/21 05:05: WBC 13.8 H, RBC 2.66 L, Hgb 7.9 L, Hct 24.8 L, MCV 93.2, MCH 29.7, MCHC 31.9 L, RDW Std Deviation 59.0 H, RDW Coeff of Denise 17.4 H, Plt Count 338, MPV 10.5, Immature Gran % (Auto) 0.700, Neut % (Auto) 90.7 H, Lymph % (Auto) 5.9 L, [place] % (Auto) 2.5, Eos % (Auto) 0.1, Baso % (Auto) 0.1, Absolute Neuts (auto) 12.5 H, Absolute Lymphs (auto) 0.81 L, Nucleated RBC % 0 10/28/21 05:05: Sodium 140, Potassium 4.3, Chloride 112 H, Carbon Dioxide 23.0, Anion Gap 5, BUN 61 H, Creatinine 1.04, Estim Creat Clear Calc 51.64, Est GFR (MDRD) Af Amer 87, Est GFR (MDRD) Non-Af 72, BUN/Creatinine Ratio 58.7 H, Glucose 116 H, Calcium 7.3 L Micro: Microbiology 10/25/21 Unknown Aspirate - Abdominal Gram Stain - Final 10/25/21 Unknown Aspirate - Abdominal Wound Culture - Preliminary Escherichia coli 10/25/21 05:32 Stool Enteric Bacteriology - Final 10/25/21 05:32 Stool C. difficile DNA Amplification - Final 10/25/21 05:32 Stool Stool Lactoferrin - Final Radiography Diagnostic Testing: Radiology Impression Chest X-Ray 10/27/21 09:10 IMPRESSION: Pneumoperitoneum. Mild atelectatic changes in left lung base.. N.B. : The above Results were Read Back by Saurav Gaston to Marbella Myers;[phone], and understanding confirmed on 10/27/2021 10:03:53 (ET). Electronically Signed: Saurav Gaston, at 9:43 EST , Physical Exam Const alert General Appearance: ill appearing and frail HEENT normocephalic and head/scalp atraumatic Eyes PERRL, EOMs intact bilaterally and conjunctivae normal Neck supple General: trachea midline Chest inspection of chest normal Resp Resp Narrative: Poor patient dependent inspiratory effort. Effort and Inspection: tachypneic Auscultation: diminished lung sounds Cardio S1 normal heart sound and S2 normal heart sound Rate: tachycardic Heart Sounds: murmur GI soft to palpation GI Narrative: Wound is dressed with THEA drain in place. Extremity no clubbing, cyanosis or edema Skin no rashes or lesions noted Neuro moves all extremities and no focal motor deficits Psych cooperative Charges/Coding Visit Charges Inpatient E&M: 54317 Subs Hosp L3
[2021-10-28 06:05] LABS: Differential Comment SCANNED
[2021-10-28 06:13] LABS: AST(SGOT) 468 U/L (15-37); Alanine Aminotransfer ALT/SGPT 412 U/L (16-61); Albumin, Serum 1.3 g/dL (3.2-5.0); Alkaline Phosphatase 137 U/L (45-117); Bilirubin, Direct 0.22 mg/dL (0.00-0.30); Globulin 4.4 g/dL (2.2-4.2); Protein, Total 5.7 g/dL (6.4-8.2)
--- NOTE | 2021-10-28 08:09 | PN.SURG_ITS ---
Subjective Subjective Patient's family did decide about doing hospice sometime this week. Patient's white blood count is improved still on meropenem, blood pressure still borderline, patient still ANO x3, no flatus, liver functions improving Objective Data Objective Data Vital Signs: Vital Signs Temp Pulse Resp BP Pulse Ox 98.7 F 107 H 16 89/67 L 95 10/28/21 04:00 10/28/21 06:00 10/28/21 06:00 10/28/21 06:00 10/28/21 07:00 Oxygen Flow Rate (L/min) 6 Oxygen Delivery Method [5] Room Air Oxygen Delivery Method [4] Room Air Oxygen Delivery Method [3] Room Air Oxygen Delivery Method [2] Room Air Oxygen Delivery Method [1 ( Room Air Initial Baseline)] Oxygen Delivery Method Simple Mask Weight: 155 lb Body Mass Index (BMI) 20.7 Intake & Output: Intake and Output for Last 24 Hours 10/26/21 10/27/21 10/28/21 23:59 23:59 23:59 Intake Total 3063.25 / 3123.25 2078.75 / 2078.75 1436.67 / 1436.67 Output Total 1380 / 1480 1295 / 1295 1235 / 1235 Balance 1683.25 / 1643.25 783.75 / 783.75 201.67 / 201.67 Medical Nutrition Assessment Dietitian: Malnutrition Criteria Met Start: 10/13/21 14:59 Freq: Status: Active Protocol: Document 10/27/21 09:01 RMA (Rec: 10/27/21 09:01 RMA [id number]) Nutrition Malnutrition Evidence of Malnutrition Exists Yes Malnutrition (moderate): Acute Illness/Injury Malnutrition (severe): Acute Illness/Injury Evidenced By Suboptimal Energy Intake ( Severe),Weight Loss (Severe), Physical Changes (Mild) Clinical Problem Acute Disease or Injury Related Malnutrition Etiology severe, acute malnutrition r/t inadequate energy intake d/t recent hospitalizations, SBO, GI dysfunction Signs/Symptoms as evidenced by unintentional 22.9#/12.5% wt loss x 2 months [employer]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 2) Continue daily weights and monitoring of electrolytes. 3.) NPO at this time. Lab / Micro Data Result Diagrams: 10/28/21 05:05 10/28/21 05:05 Labs: Laboratory Results - last 24 hr 10/27/21 06:22: POC Glucose 89 10/27/21 12:09: POC Glucose 86 10/27/21 13:00: Sodium 142, Potassium 4.3, Chloride 117 H, Carbon Dioxide 19.0 L , Anion Gap 6, BUN 57 H, Creatinine 1.44 H, Estim Creat Clear Calc 36.33, Est GFR (MDRD) Af Amer 60, Est GFR (MDRD) Non-Af 50 L, BUN/Creatinine Ratio 39.6 H, Glucose 64 L, Calcium 5.9 L* 10/27/21 14:32: POC Glucose 117 H 10/27/21 19:11: POC Glucose 124 H 10/28/21 02:12: POC Glucose 123 H 10/28/21 04:15: Sodium Cancelled, Potassium Cancelled, Chloride Cancelled, Carbon Dioxide Cancelled, Anion Gap Cancelled, BUN Cancelled, Creatinine Cancelled, Estim Creat Clear Calc Cancelled, Est GFR (MDRD) Af Amer Cancelled, Est GFR (MDRD) Non-Af Cancelled, BUN/Creatinine Ratio Cancelled, Glucose Cancelled, Calcium Cancelled, Total Bilirubin Cancelled, Direct Bilirubin Cancelled, AST Cancelled, ALT Cancelled, Alkaline Phosphatase Cancelled, Total Protein Cancelled, Albumin Cancelled, Globulin Cancelled 10/28/21 05:05: WBC 13.8 H, RBC 2.66 L, Hgb 7.9 L, Hct 24.8 L, MCV 93.2, MCH 29.7, MCHC 31.9 L, RDW Std Deviation 59.0 H, RDW Coeff of Denise 17.4 H, Plt Count 338, MPV 10.5, Immature Gran % (Auto) 0.700, Neut % (Auto) 90.7 H, Lymph % (Auto) 5.9 L, [place] % (Auto) 2.5, Eos % (Auto) 0.1, Baso % (Auto) 0.1, Absolute Neuts (auto) 12.5 H, Absolute Lymphs (auto) 0.81 L, Nucleated RBC % 0, Differential Comment SCANNED 10/28/21 05:05: Sodium 140, Potassium 4.3, Chloride 112 H, Carbon Dioxide 23.0, Anion Gap 5, BUN 61 H, Creatinine 1.04, Estim Creat Clear Calc 51.64, Est GFR (MDRD) Af Amer 87, Est GFR (MDRD) Non-Af 72, BUN/Creatinine Ratio 58.7 H, Glucose 116 H, Calcium 7.3 L 10/28/21 05:05: Total Bilirubin 0.30, Direct Bilirubin 0.22, AST 468 H, ALT 412 H, Alkaline Phosphatase 137 H, Total Protein 5.7 L, Albumin 1.3 L, Globulin 4.4 H Micro: Microbiology 10/25/21 Unknown Aspirate - Abdominal Gram Stain - Final 10/25/21 Unknown Aspirate - Abdominal Wound Culture - Preliminary Escherichia coli 10/25/21 05:32 Stool Enteric Bacteriology - Final 10/25/21 05:32 Stool C. difficile DNA Amplification - Final 10/25/21 05:32 Stool Stool Lactoferrin - Final Radiography Diagnostic Testing: Radiology Impression Chest X-Ray 10/27/21 09:10 IMPRESSION: Pneumoperitoneum. Mild atelectatic changes in left lung base.. N.B. : The above Results were Read Back by Saurav Gaston to Marbella Myers;[phone], and understanding confirmed on 10/27/2021 10:03:53 (ET). Electronically Signed: Saurav Gaston, at 9:43 EST , Physical Exam Const alert and oriented x3 Resp Effort and Inspection: tachypneic Cardio Rate: tachycardic GI GI Narrative: Soft, nondistended, tender near incision, incision packed with wet-to-dry, good granulation tissue. THEA serosanguineous Extremity no clubbing, cyanosis or edema Neuro oriented x3 Psych affect normal Assessment & Plan Assessment/Plan (1) S/P small bowel resection: (2) Ischemic necrosis of small bowel: (3) Sepsis: (4) Leukocytosis: (5) History of atrial fibrillation: PLAN: Patient still have systolic blood pressures in the mid to high 90s/low 100s. Also still tachycardic low 100s mostly. Patient is ANO x3. Leukocytosis improving with meropenem Liver function improving TPN and IV fluids about 100 cc an hour total urine output improved. Discussed with [id number] Lorelei as well as his would not plan for hospice tomorrow or Friday would see how he he is doing as he may be more stable to go home later in the week. Currently he is improving. However if he does stop improving would recommend hospice sooner. Appreciate hospitalist/ICU's assistance Justyna Denney M.D. Pager: [phone] [facility] [address] [place] [address], [address] [place] [address] Office: [phone]
[2021-10-28] MEDS: Menthol/Lanolin/Calamine/Znox 113 GM Tube 1 APPLIC TOPICAL ×2 (09:27→21:29)
[2021-10-28] MEDS: CHLORHEXIDINE GLUC 2% CLOTH 1 EACH TOWELETTE TOPICAL (09:27)
[2021-10-28] MEDS: Enoxaparin 40 MG/0.4 ML Syringe SC (09:27)
--- NOTE | 2021-10-28 09:54 | PN.HOSP_ITS ---
Subjective Subjective Patient seen and examined. He was drowsy but arousable. His blood pressure is noted to be running in the 90s systolic. He is tachycardic and had a short beat run of V. tach today. Family met with hospice and palliative care yesterday and have decided to take him home with hospice. WBC is down to 13.8 and hemoglobin is 7.9. Potassium is 4.3 and magnesium is pending. Objective Data Objective Data Vital Signs: Vital Signs Temp Pulse Resp BP Pulse Ox 98.9 F 108 H 19 H 92/59 L 92 10/28/21 08:00 10/28/21 08:00 10/28/21 08:00 10/28/21 08:00 10/28/21 08:00 Oxygen Flow Rate (L/min) 5 Oxygen Delivery Method [5] Room Air Oxygen Delivery Method [4] Room Air Oxygen Delivery Method [3] Room Air Oxygen Delivery Method [2] Room Air Oxygen Delivery Method [1 ( Room Air Initial Baseline)] Oxygen Delivery Method Nasal Cannula Weight: 155 lb Body Mass Index (BMI) 20.7 Intake & Output: Intake and Output for Last 24 Hours 10/26/21 10/27/21 10/28/21 23:59 23:59 23:59 Intake Total 3063.25 / 3123.25 2078.75 / 2078.75 1546.67 / 1546.67 Output Total 1380 / 1480 1295 / 1295 1235 / 1235 Balance 1683.25 / 1643.25 783.75 / 783.75 311.67 / 311.67 Medical Nutrition Assessment Dietitian: Malnutrition Criteria Met Start: 10/13/21 14:59 Freq: Status: Active Protocol: Document 10/27/21 09:01 RMA (Rec: 10/27/21 09:01 RMA [id number]) Nutrition Malnutrition Evidence of Malnutrition Exists Yes Malnutrition (moderate): Acute Illness/Injury Malnutrition (severe): Acute Illness/Injury Evidenced By Suboptimal Energy Intake ( Severe),Weight Loss (Severe), Physical Changes (Mild) Clinical Problem Acute Disease or Injury Related Malnutrition Etiology severe, acute malnutrition r/t inadequate energy intake d/t recent hospitalizations, SBO, GI dysfunction Signs/Symptoms as evidenced by unintentional 22.9#/12.5% wt loss x 2 months [employer];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 2) Continue daily weights and monitoring of electrolytes. 3.) NPO at this time. Lab / Micro Data Result Diagrams: 10/28/21 05:05 10/28/21 05:05 Labs: Laboratory Results - last 24 hr 10/27/21 06:22: POC Glucose 89 10/27/21 12:09: POC Glucose 86 10/27/21 13:00: Sodium 142, Potassium 4.3, Chloride 117 H, Carbon Dioxide 19.0 L , Anion Gap 6, BUN 57 H, Creatinine 1.44 H, Estim Creat Clear Calc 36.33, Est GFR (MDRD) Af Amer 60, Est GFR (MDRD) Non-Af 50 L, BUN/Creatinine Ratio 39.6 H, Glucose 64 L, Calcium 5.9 L* 10/27/21 14:32: POC Glucose 117 H 10/27/21 19:11: POC Glucose 124 H 10/28/21 02:12: POC Glucose 123 H 10/28/21 04:15: Sodium Cancelled, Potassium Cancelled, Chloride Cancelled, Carbon Dioxide Cancelled, Anion Gap Cancelled, BUN Cancelled, Creatinine Cancell ed, Estim Creat Clear Calc Cancelled, Est GFR (MDRD) Af Amer Cancelled, Est GFR (MDRD) Non-Af Cancelled, BUN/Creatinine Ratio Cancelled, Glucose Cancelled, Calcium Cancelled, Total Bilirubin Cancelled, Direct Bilirubin Cancelled, AST Cancelled, ALT Cancelled, Alkaline Phosphatase Cancelled, Total Protein Cancelled, Albumin Cancelled, Globulin Cancelled 10/28/21 05:05: WBC 13.8 H, RBC 2.66 L, Hgb 7.9 L, Hct 24.8 L, MCV 93.2, MCH 29.7, MCHC 31.9 L, RDW Std Deviation 59.0 H, RDW Coeff of Denise 17.4 H, Plt Count 338, MPV 10.5, Immature Gran % (Auto) 0.700, Neut % (Auto) 90.7 H, Lymph % (Auto) 5.9 L, [place] % (Auto) 2.5, Eos % (Auto) 0.1, Baso % (Auto) 0.1, Absolute Neuts (auto) 12.5 H, Absolute Lymphs (auto) 0.81 L, Nucleated RBC % 0, Differential Comment SCANNED 10/28/21 05:05: Sodium 140, Potassium 4.3, Chloride 112 H, Carbon Dioxide 23.0, Anion Gap 5, BUN 61 H, Creatinine 1.04, Estim Creat Clear Calc 51.64, Est GFR (MDRD) Af Amer 87, Est GFR (MDRD) Non-Af 72, BUN/Creatinine Ratio 58.7 H, Glucose 116 H, Calcium 7.3 L 10/28/21 05:05: Total Bilirubin 0.30, Direct Bilirubin 0.22, AST 468 H, ALT 412 H, Alkaline Phosphatase 137 H, Total Protein 5.7 L, Albumin 1.3 L, Globulin 4.4 H 10/28/21 05:05: Magnesium 2.0 Micro: Microbiology 10/25/21 Unknown Aspirate - Abdominal Gram Stain - Final 10/25/21 Unknown Aspirate - Abdominal Wound Culture - Preliminary Escherichia coli 10/25/21 05:32 Stool Enteric Bacteriology - Final 10/25/21 05:32 Stool C. difficile DNA Amplification - Final 10/25/21 05:32 Stool Stool Lactoferrin - Final Radiography Diagnostic Testing: Radiology Impression Chest X-Ray 10/27/21 09:10 IMPRESSION: Pneumoperitoneum. Mild atelectatic changes in left lung base.. N.B. : The above Results were Read Back by Saurav Gaston to Marbella Myers;[phone], and understanding confirmed on 10/27/2021 10:03:53 (ET). Electronically Signed: Saurav Gaston, at 9:43 EST , Physical Exam Const Constitutional Narrative: drowsy but arousable General Appearance: cooperative HEENT normocephalic and head/scalp atraumatic; Negative for hearing grossly normal bilaterally Head and Scalp: normocephalic Mouth: dry mucous membranes Eyes PERRL, EOMs intact bilaterally and conjunctivae normal Neck no lymphadenopathy, supple, no JVD and no carotid bruits Neck Narrative: Resp normal respiratory effort, no retractions, no use of accessory muscles and clear to auscultation bilaterally Resp Narrative: mildly diminished breath sounds bibasally, no wheezes or crackles. On 5L of oxygen by nasal canula Auscultation: Negative for crackles, rales, rhonchi or wheezes Cardio regular rate, regular rhythm, S1 normal heart sound, S2 normal heart sound, no murmurs, no rub, no gallops, no clicks and no JVD GI normal to inspection, nondistended, normoactive bowel sounds, soft to palpation and non-tender GI Narrative: Intact dressing over surgical site. soft, non tender, NG tube in situ. Mild abdominal distension, THEA drain in place Extremity normal to inspection, full ROM and no clubbing, cyanosis or edema Peripheral Pulses: Yes pulses 2+ throughout Skin no rashes or lesions noted Neuro no focal motor deficits Neuro Narrative: drowsy but arousable, Generalized weakness Speech: speech normal Psych Psych Narrative: drowsy Assessment & Plan Assessment/Plan (1) Ischemic necrosis of small bowel: (2) S/P small bowel resection: (3) Adynamic ileus: (4) History of small bowel obstruction: PLAN: #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 He therefore had Ileocecectomy and placement of THEA drain * on TPN; * wbc trended down to 13.8 today * CT abdomen and pelvis done showed colitis involving the rectosigmoid colon with a well-circumscribed fluid collection measuring 3.5 x 5.3 cm in the cul-de-sac and distended gallbladder with findings suggestive of tiny gallstones or sludge in the gallbladder lumen at the level of the neck of the gallbladder and bilateral pleural effusions with bibasilar atelectasis worse on the left side * had drainage of the fluid collection by radiology * on IV meropenem * general surgery on board * #Sepsis due to gangrenous bowel * WBC has now trended down to 13 * On IV meropenem. Repeat blood cultures are pending. * ID and critical care on board. * patient still remains hypotensive today. BP meds on hold and he is being hydrated with IVF * * #Acute hypoxic respiratory failure * Patient currently on 5 L of oxygen. Unclear why. * CXR done yesterday showed pneumoperitoneum which was likely due to recent surgery and mild atelectatic changes in the left lung base. * Oxygen requirements are down to 5 L of oxygen. Titrate oxygen to maintain saturation above 90%. Breathing treatments with bronchodilators. 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 * fall precautions * to follow up with orthopedic surgery on outpatient basis * #Paroxysmal afib * on eliquis and metoprolol * has been tachycardic; will put on IV metoprolol 5mg every 6 hours as needed for HR >120 * currently NPO, so cant take his oral meds, hence the poorly controlled herat rate. * had a brief run of Vtach today. Potassium is 4.3. Will check magnesium levels. #CAD s/p CABG: Blood pressure medications. On statin #Hyper lipidemia: On statin #Hypertension: On metoprolol and hydrochlorothiazide as well as amlodipine and ramipril #GERD: On PPI #Severe protein calorie malnutrition: On regular diet. On TPN as well. Dietitian on board. DVT prophylaxis: Lovenox Disposition: * Hospice and palliative care consulted due to poor prognosis. family has decided to take patient home with hospice. Want to get everything set up at home so anticipates discharge on Friday or Friday. * * CODE STATUS: DNR CCA no intubation Charges/Coding Visit Charges Inpatient E&M: 57715 Subs Hosp L3
[2021-10-28 11:50] LABS: Bedside Glucose 128 mg/dL (70-110)
[2021-10-28] MEDS: 0.9% Saline Lock 10 ML Syringe IV ×2 (16:35→23:20)
[2021-10-28] MEDS: TPN - Clinimix E 8%-14% Soln 2,000 ML with Multivitamins 10 ML, Trace Elements 1 ML, Fo... 42 ML IV (16:35)
[2021-10-28 17:41] LABS: Bedside Glucose 151 mg/dL (70-110)
[2021-10-28] MEDS: Atorvastatin Calcium 40 MG Tablet NG (21:30)
[2021-10-28 23:26] LABS: Bedside Glucose 105 mg/dL (70-110)
[2021-10-29] VITALS (19 sets, daily range): BP systolic 98–136; BP diastolic 53–88; PULSE 69–101; RESP 16–20; TEMP 36.2–37.1; O2SAT 89–98
[2021-10-29 04:58] LABS: Absolute Lymphocyte Count 0.85 X10^3/uL (0.83-4.51); Absolute Neutrophil Count 8.6 X10^3/uL (2.0-7.7); Basophil# 0.01 X10^3/uL; Basophil% 0.1 % (0-1); Eosinophil# 0.05 X10^3/uL; Eosinophils% 0.5 % (0-5); Hematocrit 23.5 % (40-54); Hemoglobin 7.4 g/dL (13.0-16.5); Lymphocyte # 0.85 X10^3/ul (0.83-4.51); Lymphocyte % 8.5 % (19-41); Mean Corp Hgb Conc 31.5 g/dL (32-36); Mean Corpuscular Hgb 29.5 pg (27.0-32.0); Mean Corpuscular Volume 93.6 fL (80-94); Mean Platelet Vol. 10.3 fl (6.2-12.0); Monocyte# 0.41 X10^3/uL; Monocyte% 4.1 % (0-10); NRBC Flagged by Analyzer 0 % (0-5); Neutrophil # 8.61 X10^3/uL (2.7-7.7); Neutrophil % 86.2 % (47-70); Platelet Count 293 K/mm3 (150-450); RBC Distribution Width CV 17.2 % (11.6-14.6); RBC Distribution Width SD 57.6 fl (35.1-43.9); Red Blood Count 2.51 M/mm3 (4.6-6.2)
[2021-10-29 05:28] LABS: Anion Gap 5 (5-15); BUN 49 mg/dL (7-18); Calcium,Total 7.5 mg/dL (8.5-10.1); Chloride 116 mmol/L (98-107); Creatinine, Serum 0.66 mg/dL (0.70-1.30); EST Glomerular Filtration Rate 121 mL/min (>60); Est Glom Filt Rate - Afr Amer 147 mL/min (>60); Estimated Creatinine Clearance 53.71 ml/min; Glucose 111 mg/dL (74-106); Sodium Level 143 mmol/L (136-145)
--- NOTE | 2021-10-29 06:40 | PN.CC_ITS ---
Assessment & Plan Assessment/Plan (1) Sepsis: PLAN: RECOMMENDATIONS: 1. Continue antimicrobials per ID recommendations. 2. Vasopressors can be utilized, if needed, to maintain a mean arterial pressure at or above 65 mmHg. 3. Wean supplemental oxygen to maintain saturations at or above 90%. 4. Encourage incentive spirometer use while in bed. 5. Continue TPN. 6. Continue to hold antihypertensives. 7. Continue to monitor H&H and transfuse if hemoglobin drops below 7 g/dL. IMPRESSIONS: 1. Sepsis The patient has sepsis due to ESBL E. coli intra-abdominal abscess in the setting of necrotic bowel requiring surgical intervention with acute sepsis related organ dysfunction as evidenced by acute kidney injury, acute liver injury, and systolic blood pressure less than 90 mmHg. The patient remains on broad-spectrum antimicrobials per ID recommendations. The patient has yet to require vasopressor support, but blood pressures appear to be slowly improving with antibiotics. Plan to continue current supportive measures. 2. Ischemic bowel, now postop day #3 status post ileocecectomy and THEA drain placement Continue routine postoperative care per general surgery recommendations. Patient is reporting passing gas, but still has significant NG output. Continue TPN for nutritional support. 3. Acute kidney injury/acute liver injury Improving. Appears to be secondary to #1. No acute intervention is warranted at this time. Continue to trend renal and liver function for now. Vasopressor support can be utilized if needed to maintain hemodynamic stability. 4. Acute hypoxemic respiratory failure The patient is currently documented to be overall net +20.8 L for the hospitalization. In addition, he has had extensive abdominal surgery and likely has a significant amount of atelectasis. Patient also noted to have some pos sible obstructive sleep apnea, which may be adding to nocturnal hypoxia. Plan to continue supplemental oxygen to maintain saturations at or above 90%. Encourage incentive spirometer use. Hemodynamic instability would preclude the use of diuretics at the present time. 5. Anemia Hemoglobin was noted to be down to 7.4 g/dL this morning. There is likely a dilutional component to this. Recommend continuing to monitor H&H daily. Transfuse if hemoglobin drops below 7 g/dL. Continue PPI therapy as ordered. 6. Periprosthetic fracture of left femur status post hip replacement Continue work with PT and follow-up with orthopedic surgery on outpatient basis. 7. History of paroxysmal atrial fibrillation/coronary artery disease/hypertension/GERD Complicates care, management, recovery and prognosis. Continue to hold home antihypertensives. Continue PPI therapy. This note was generated with [employer] dictation software. It may contain incorrect words, spelling, and punctuation that were not noted in checking the note before signing. Subjective Subjective Patient did okay overnight. No acute issues were reported. Patient has gone back and forth from A. fib to normal sinus rhythm with sinus ectopy. Patient difficult to understand, but does not appear to have any complaints. Patient has reported passing gas and is still requesting significant ice chips. Objective Data Objective Data Vital Signs: Vital Signs Temp Pulse Resp BP Pulse Ox 36.2 C L 88 18 112/57 L 95 10/29/21 04:00 10/29/21 05:00 10/29/21 05:00 10/29/21 05:00 10/29/21 05:00 Oxygen Flow Rate (L/min) 2 Oxygen Delivery Method [5] Room Air Oxygen Delivery Method [4] Room Air Oxygen Delivery Method [3] Room Air Oxygen Delivery Method [2] Room Air Oxygen Delivery Method [1 ( Room Air Initial Baseline)] Oxygen Delivery Method Nasal Cannula Weight: 69.989 kg Body Mass Index (BMI) 20.7 Intake & Output: Intake and Output for Last 24 Hours 10/27/21 10/28/21 10/29/21 23:59 23:59 23:59 Intake Total 2078.75 / 2078.75 4611.12 / 5211.12 720 / 720 Output Total 1295 / 1295 2895 / 3270 1475 / 1475 Balance 783.75 / 783.75 1716.12 / 1941.12 -755 / -755 Medical Nutrition Assessment Dietitian: Malnutrition Criteria Met Start: 10/13/21 14:59 Freq: Status: Active Protocol: Document 10/28/21 11:27 AG (Rec: 10/28/21 11:27 AG [id number]) Nutrition Malnutrition Evidence of Malnutrition Exists Yes Malnutrition (moderate): Acute Illness/Injury Malnutrition (severe): Acute Illness/Injury Evidenced By Suboptimal Energy Intake ( Severe),Weight Loss (Severe), Physical Changes (Mild) Clinical Problem Acute Disease or Injury Related Malnutrition Etiology severe, acute malnutrition r/t inadequate energy intake d/t recent hospitalizations, SBO, GI dysfunction Signs/Symptoms as evidenced by unintentional 22.9#/12.5% wt loss x 2 months [employer];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 Will monitor plan of care and adjust TPN recommendations as appropriate . 2) Continue daily weights and monitoring of electrolytes. 3.) NPO at this time. Recommend advance diet as tolerated to transitional. Lab / Micro Data Result Diagrams: 10/29/21 04:40 10/29/21 04:40 Labs: Laboratory Results - last 24 hr 10/28/21 05:05: Magnesium 2.0 10/28/21 11:41: POC Glucose 128 H 10/28/21 17:36: POC Glucose 151 H 10/28/21 23:23: POC Glucose 105 10/29/21 04:40: WBC 10.0, RBC 2.51 L, Hgb 7.4 L, Hct 23.5 L, MCV 93.6, MCH 29.5, MCHC 31.5 L, RDW Std Deviation 57.6 H, RDW Coeff of Denise 17.2 H, Plt Count 293, MPV 10.3, Immature Gran % (Auto) 0.600, Neut % (Auto) 86.2 H, Lymph % (Auto) 8.5 L, [place] % (Auto) 4.1, Eos % (Auto) 0.5, Baso % (Auto) 0.1, Absolute Neuts (auto) 8.6 H, Absolute Lymphs (auto) 0.85, Nucleated RBC % 0 10/29/21 04:40: Sodium 143, Potassium 4.0, Chloride 116 H, Carbon Dioxide 22.0, Anion Gap 5, BUN 49 H, Creatinine 0.66 L, Estim Creat Clear Calc 53.71, Est GFR (MDRD) Af Amer 147, Est GFR (MDRD) Non-Af 121, BUN/Creatinine Ratio 74.0 H, Glucose 111 H, Calcium 7.5 L Micro: Microbiology 10/25/21 Unknown Aspirate - Abdominal Gram Stain - Final 10/25/21 Unknown Aspirate - Abdominal Wound Culture - Final Escherichia coli 10/26/21 06:10 Blood Culture (Wb) - Left Hand Blood Culture - Preliminary No growth in 48 hours. 10/26/21 06:14 Blood Culture (Wb) - Left Forearm Blood Culture - Preliminary No growth in 48 hours. 10/25/21 05:32 Stool Enteric Bacteriology - Final 10/25/21 05:32 Stool C. difficile DNA Amplification - Final 10/25/21 05:32 Stool Stool Lactoferrin - Final Physical Exam Const alert General Appearance: ill appearing and frail HEENT normocephalic and head/scalp atraumatic Eyes PERRL, EOMs intact bilaterally and conjunctivae normal Neck supple General: trachea midline Chest inspection of chest normal Resp Resp Narrative: Poor patient dependent inspiratory effort. Some obstructive apneic events noted with sleeping Effort and Inspection: tachypneic Auscultation: diminished lung sounds Cardio S1 normal heart sound and S2 normal heart sound Rate: tachycardic Heart Sounds: murmur GI soft to palpation GI Narrative: Wound is dressed with THEA drain in place. Extremity no clubbing, cyanosis or edema Skin no rashes or lesions noted Neuro moves all extremities and no focal motor deficits Psych cooperative Charges/Coding Visit Charges Inpatient E&M: 23825 [facility] Hosp L3
[2021-10-29 08:34] LABS: AST(SGOT) 278 U/L (15-37); Alanine Aminotransfer ALT/SGPT 323 U/L (16-61); Albumin, Serum 1.3 g/dL (3.2-5.0); Alkaline Phosphatase 137 U/L (45-117); Bilirubin, Direct 0.25 mg/dL (0.00-0.30); Globulin 4.3 g/dL (2.2-4.2); Protein, Total 5.6 g/dL (6.4-8.2)
--- NOTE | 2021-10-29 08:40 | PCM.PN.SRG ---
Subjective Subjective Patient is a chair, and states he does have a little abdominal pain but does not need pain meds currently. Patient is enjoying his ice chips with NG in place, liver functions are improving, white blood cell count within normal limits still with a left shift on meropenem Objective Data Objective Data Vital Signs: Vital Signs Temp Pulse Resp BP Pulse Ox 98.8 F 96 19 H 111/85 H 95 10/29/21 08:00 10/29/21 08:00 10/29/21 08:00 10/29/21 08:00 10/29/21 08:00 Oxygen Flow Rate (L/min) 2 Oxygen Delivery Method [5] Room Air Oxygen Delivery Method [4] Room Air Oxygen Delivery Method [3] Room Air Oxygen Delivery Method [2] Room Air Oxygen Delivery Method [1 ( Room Air Initial Baseline)] Oxygen Delivery Method Nasal Cannula Weight: 154 lb 4.8 oz Body Mass Index (BMI) 20.7 Intake & Output: Intake and Output for Last 24 Hours 10/27/21 10/28/21 10/29/21 23:59 23:59 23:59 Intake Total 2078.75 / 2078.75 4611.12 / 5211.12 720 / 720 Output Total 1295 / 1295 2895 / 3270 2300 / 2300 Balance 783.75 / 783.75 1716.12 / 1941.12 -1580 / -1580 Medical Nutrition Assessment Dietitian: Malnutrition Criteria Met Start: 10/13/21 14:59 Freq: Status: Active Protocol: Document 10/28/21 11:27 (Rec: 10/28/21 11:27 [id number]) Nutrition Malnutrition Evidence of Malnutrition Exists Yes Malnutrition (moderate): Acute Illness/Injury Malnutrition (severe): Acute Illness/Injury Evidenced By Suboptimal Energy Intake ( Severe),Weight Loss (Severe), Physical Changes (Mild) Clinical Problem Acute Disease or Injury Related Malnutrition Etiology severe, acute malnutrition r/t inadequate energy intake d/t recent hospitalizations, SBO, GI dysfunction Signs/Symptoms as evidenced by unintentional 22.9#/12.5% wt loss x 2 months [facility];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 Will monitor plan of care and adjust TPN recommendations as appropriate . 2) Continue daily weights and monitoring of electrolytes. 3.) NPO at this time. Recommend advance diet as tolerated to transitional. Lab / Micro Data Result Diagrams: 10/29/21 04:40 10/29/21 04:40 Labs: Laboratory Results - last 24 hr 10/28/21 05:05: Magnesium 2.0 10/28/21 11:41: POC Glucose 128 H 10/28/21 17:36: POC Glucose 151 H 10/28/21 23:23: POC Glucose 105 10/29/21 04:40: WBC 10.0, RBC 2.51 L, Hgb 7.4 L, Hct 23.5 L, MCV 93.6, MCH 29.5, MCHC 31.5 L, RDW Std Deviation 57.6 H, RDW Coeff of Denise 17.2 H, Plt Count 293, MPV 10.3, Immature Gran % (Auto) 0.600, Neut % (Auto) 86.2 H, Lymph % (Auto) 8.5 L, [place] % (Auto) 4.1, Eos % (Auto) 0.5, Baso % (Auto) 0.1, Absolute Neuts (auto) 8.6 H, Absolute Lymphs (auto) 0.85, Nucleated RBC % 0 10/29/21 04:40: Sodium 143, Potassium 4.0, Chloride 116 H, Carbon Dioxide 22.0, Anion Gap 5, BUN 49 H, Creatinine 0.66 L, Estim Creat Clear Calc 53.71, Est GFR (MDRD) Af Amer 147, Est GFR (MDRD) Non-Af 121, BUN/Creatinine Ratio 74.0 H, Glucose 111 H, Calcium 7.5 L 10/29/21 04:40: Total Bilirubin 0.40, Direct Bilirubin 0.25, AST 278 H, ALT 323 H, Alkaline Phosphatase 137 H, Total Protein 5.6 L, Albumin 1.3 L, Globulin 4.3 H Micro: Microbiology 10/25/21 Unknown Aspirate - Abdominal Gram Stain - Final 10/25/21 Unknown Aspirate - Abdominal Wound Culture - Final Escherichia coli 10/26/21 06:10 Blood Culture (Wb) - Left Hand Blood Culture - Preliminary No growth in 48 hours. 10/26/21 06:14 Blood Culture (Wb) - Left Forearm Blood Culture - Preliminary No growth in 48 hours. 10/25/21 05:32 Stool Enteric Bacteriology - Final 10/25/21 05:32 Stool C. difficile DNA Amplification - Final 10/25/21 05:32 Stool Stool Lactoferrin - Final Physical Exam Narrative NG in place Const alert and oriented x3 Resp Effort and Inspection: tachypneic Cardio regular rate GI GI Narrative: Soft, nondistended, tender near incision, incision packed with wet-to-dry, good granulation tissue. THEA serosanguineous Extremity no clubbing, cyanosis or edema Neuro oriented x3 Psych affect normal Assessment & Plan Assessment/Plan (1) S/P small bowel resection: (2) Ischemic necrosis of small bowel: (3) Sepsis: (4) Leukocytosis: (5) History of atrial fibrillation: PLAN: Patient's blood pressures have improved to the 110s systolically, good urine output, patient ANO x3, okay to move to the floor from ICU Continue NG also okay for patient to continue ice chips--Until bowel function Leukocytosis?within normal limits still has a left shift--- improving with meropenem Liver function improving Continue TPN? will stop IV fluids Discussed with [id number] L[place]lei as well as his would not plan for hospice today or Friday ---would see how he he is doing as he may be more stable to go home later in the week, family is in agreement.. Currently he is improving. However if he does stop improving would recommend hospice sooner. Appreciate hospitalist/ICU's assistance Justyna Denney M.D. Pager: [phone] [facility] [address] [place] [address], [facility], [address] [place] [address] Office: [phone]
--- NOTE | 2021-10-29 09:05 | PN.HOSP_ITS ---
Subjective Subjective Follow-up on sepsis secondary to gangrenous bowel/small bowel obstruction/acute hypoxic respiratory failure: Patient was seen and examined. Overnight, patient has been flipping between normal sinus rhythm and A. fib. He was seen sitting up in a chair. Denied any new complaints. NG tube in situs, draining bilious fluid. Reportedly has been faxing for lots of ice chips. No fever seen overnight. Blood pressure has been improved. Previous plan for discharge to hospice on hold for now pending patient's improvement or otherwise. Objective Data Objective Data Vital Signs: Vital Signs Temp Pulse Resp BP Pulse Ox 98.8 F 96 19 H 111/85 H 95 10/29/21 08:00 10/29/21 08:00 10/29/21 08:00 10/29/21 08:00 10/29/21 08:00 Oxygen Flow Rate (L/min) 2 Oxygen Delivery Method [5] Room Air Oxygen Delivery Method [4] Room Air Oxygen Delivery Method [3] Room Air Oxygen Delivery Method [2] Room Air Oxygen Delivery Method [1 ( Room Air Initial Baseline)] Oxygen Delivery Method Nasal Cannula Weight: 69.989 kg Body Mass Index (BMI) 20.7 Intake & Output: Intake and Output for Last 24 Hours 10/27/21 10/28/21 10/29/21 23:59 23:59 23:59 Intake Total 2078.75 / 2078.75 4611.12 / 5211.12 720 / 720 Output Total 1295 / 1295 2895 / 3270 2300 / 2300 Balance 783.75 / 783.75 1716.12 / 1941.12 -1580 / -1580 Medical Nutrition Assessment Dietitian: Malnutrition Criteria Met Start: 10/13/21 14:59 Freq: Status: Active Protocol: Document 10/28/21 11:27 AG (Rec: 10/28/21 11:27 [id number]) Nutrition Malnutrition Evidence of Malnutrition Exists Yes Malnutrition (moderate): Acute Illness/Injury Malnutrition (severe): Acute Illness/Injury Evidenced By Suboptimal Energy Intake ( Severe),Weight Loss (Severe), Physical Changes (Mild) Clinical Problem Acute Disease or Injury Related Malnutrition Etiology severe, acute malnutrition r/t inadequate energy intake d/t recent hospitalizations, SBO, GI dysfunction Signs/Symptoms as evidenced by unintentional 22.9#/12.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 Will monitor plan of care and adjust TPN recommendations as appropriate . 2) Continue daily weights and monitoring of electrolytes. 3.) NPO at this time. Recommend advance diet as tolerated to transitional. Lab / Micro Data Result Diagrams: 10/29/21 04:40 10/29/21 04:40 Labs: Laboratory Results - last 24 hr 10/28/21 05:05: Magnesium 2.0 10/28/21 11:41: POC Glucose 128 H 10/28/21 17:36: POC Glucose 151 H 10/28/21 23:23: POC Glucose 105 10/29/21 04:40: WBC 10.0, RBC 2.51 L, Hgb 7.4 L, Hct 23.5 L, MCV 93.6, MCH 29.5, MCHC 31.5 L, RDW Std Deviation 57.6 H, RDW Coeff of Denise 17.2 H, Plt Count 293, MPV 10.3, Immature Gran % (Auto) 0.600, Neut % (Auto) 86.2 H, Lymph % (Auto) 8.5 L, [place] % (Auto) 4.1, Eos % (Auto) 0.5, Baso % (Auto) 0.1, Absolute Neuts (auto) 8.6 H, Absolute Lymphs (auto) 0.85, Nucleated RBC % 0 10/29/21 04:40: Sodium 143, Potassium 4.0, Chloride 116 H, Carbon Dioxide 22.0, Anion Gap 5, BUN 49 H, Creatinine 0.66 L, Estim Creat Clear Calc 53.71, Est GFR (MDRD) Af Amer 147, Est GFR (MDRD) Non-Af 121, BUN/Creatinine Ratio 74.0 H, Glucose 111 H, Calcium 7.5 L 10/29/21 04:40: Total Bilirubin 0.40, Direct Bilirubin 0.25, AST 278 H, ALT 323 H, Alkaline Phosphatase 137 H, Total Protein 5.6 L, Albumin 1.3 L, Globulin 4.3 H Micro: Microbiology 10/25/21 Unknown Aspirate - Abdominal Gram Stain - Final 10/25/21 Unknown Aspirate - Abdominal Wound Culture - Final Escherichia coli 10/26/21 06:10 Blood Culture (Wb) - Left Hand Blood Culture - Preliminary No growth in 48 hours. 10/26/21 06:14 Blood Culture (Wb) - Left Forearm Blood Culture - Preliminary No growth in 48 hours. 10/25/21 05:32 Stool Enteric Bacteriology - Final 10/25/21 05:32 Stool C. difficile DNA Amplification - Final 10/25/21 05:32 Stool Stool Lactoferrin - Final Physical Exam Narrative Physical exam: General: Alert, Oriented x3, Cooperative, No apparent distress, NG tube in situ, on 2 L of oxygen HEENT: Atraumatic Oral: Moist Mucosa Neck: Supple Lungs: Diminished to auscultation at the bases Cardiovascular: HS I+II, regular, no murmurs Abdomen: Dressing intact and clean, bowel Sounds hypoactive, Soft, Non Tender Extremities: No edema Assessment & Plan Assessment/Plan (1) Ischemic necrosis of small bowel: (2) S/P small bowel resection: (3) Adynamic ileus: (4) History of small bowel obstruction: PLAN: 1. POD#2, s/p ileocecectomy (10/26/21), placement of THEA drain; patches of necrotic ileum at the previous anastomosis and distal to cecum Patient initially presented acute small bowel obstruction with gangrene of the jejenum s/p small bowel resection with anastomosis on 10/15/[address] of abdomen and pelvis on 10/24/21 showed colitis/abscess in the pelvis; status post IR drainage Wound cultures growing E. coli, ESBL WBC count generally improved to 10.0 from previous peak of 30.1 Continue on TPN, general surgery, critical care, ID following Continue IV PPI twice daily 2. Sepsis due to gangrenous bowel, managed as above Continue on IV meropenem Blood pressures improved, patient was transferred to PCU 3. Acute hypoxic respiratory failure, improving, patient currently on 2 L of oxygen Likely secondary to atelectasis Chest x-ray on 10/27/21 showed pneumoperitoneum, left lung base atelectasis Continue to wean off oxygen, breathing treatment, encourage use of incentive spirometer 4. 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 Paroxysmal A. fib, currently normal sinus rhythm/ periods of A. fib Patient's metoprolol tartrate was daily; will increase to BID with holding parameters Off Eliquis at the moment 6. Hypotension, hydrochlorothiazide on hold On ramipril, amlodipine and metoprolol with holding parameters Hold ramipril in the light of probable hemodynamics instability Resume ramipril when patient remains more stable Continue to monitor blood pressures 7. Severe protein calorie malnutrition related to the above, patient is on TPN, nutrition following 8. Rest of his chronic medical conditions including CAD status post CABG /hyperlipidemia/GERD remained stable Continue on statin, PPI 8. DVT prophylaxis?Lovenox subcu 9. CODE STATUS DNR CCA, no intubation Charges/Coding Visit Charges Inpatient E&M: 54735 Subs Hosp L3
[2021-10-29] MEDS: Enoxaparin 40 MG/0.4 ML Syringe SC (09:07)
[2021-10-29] MEDS: Ramipril 10 MG Capsule GT (09:07)
[2021-10-29] MEDS: Menthol/Lanolin/Calamine/Znox 113 GM Tube 1 APPLIC TOPICAL ×2 (09:08→22:30)
--- NOTE | 2021-10-29 09:21 | CASEMGMT ---
Patient meets criteria for palliative consult. Siding Mechanic requested palliative consult be made. ANÍBAL GRIFFITH sent referral to [facility] palliative. CM will continue to follow this patient for care coordination and safe discharge.
[2021-10-29 09:24] LABS: Magnesium 2.3 mg/dL (1.6-2.6)
--- NOTE | 2021-10-29 09:48 | CASEMGMT ---
Social Work As per chart, family was considering hospice. However, as per physician this morning, pt is now improving, and family would like to continue with treatment. SW left Yuki in TCU an update on her voicemail. LOVELY Key
--- NOTE | 2021-10-29 11:57 | CON.PCM.ID_ITS ---
Assessment & Plan Assessment/Plan (1) Ischemic necrosis of small bowel: PLAN: Aspirate 10/25 with esbl ecoli. Taken to OR 10/26/[address] Denney for ileocecectomy. Wbc dramatically improved, ARCHIE resolved, fever resolved. On meropenem. Plan at this point will be for 5 days total of abx starting from 10/26 surgery now that he has had good source control. Also plan on stopping isolation at that point. Pt reports covid vaccine x3 but he is not completely sure. Will follow, thank you, d/w nursing (2) Sepsis: HPI Consult Data Date of Consult: 10/29/21 HPI Narrative HPI Narrative: CARIDAD WARD, is a 86 M who presented to ED 10/13 with abd pain. Recent L hip fracture in September. In TCU, found to have SBO needing ex lap and lysis of adhesions, re-admitted here then sent back to TCU. Developed abd pain again, sent to ED, CT showed SBO with necrosis of bowel. Taken to OR 10/15 for resection, on broad spectrum abx but continued to worsen. Aspiration done 10/25. Changed to meropenem and taken back to OR 10/[address] Denney for resection of necrotic ileum. THEA drain placed. Wbc now normalized, on TPN, in icu, feeling better. Full ROS performed and neg except as noted above. [facility] Medical History Arthritis Atherosclerosis of coronary artery of [place] without angina pectoris Chronic atrial flutter Depression Essential hypertension Hearing loss, left Hearing loss, right History of [place] (myocardial infarction) (1983) Hyperlipidemia Left ventricular hypertrophy New onset atrial flutter (02/08/20) Obesity Osteoarthritis Osteoporosis Periprosthetic fracture around internal prosthetic left hip joint Venous insufficiency of both lower extremities Home Medications amlodipine 10 mg PO DAILY 06/23/13 [History Last Taken 10/05/21 10:00] pentoxifylline 400 mg PO BID 06/23/13 [History Last Taken 10/05/21 10:00] rosuvastatin 20 mg PO QHS 06/23/13 [History Last Taken 10/04/21 22:00] metoprolol tartrate 100 mg-hydrochlorothiazide 25 mg tablet 1 tab PO DAILY 02/24/20 [History Last Taken 08/13/21] multivitamin 1 tab PO DAILY 02/24/20 [History Last Taken Unknown] omega-3 fatty acids-fish oil 360 mg-1,200 mg capsule 1 cap PO DAILY 02/24/20 [History Last Taken Unknown] ramipril 10 mg capsule 10 mg PO DAILY cap 02/24/20 [History Last Taken 10/05/21 10:00] furosemide 20 mg tablet 20 mg PO DAILY PRN PRN tab 07/19/21 [History Last Taken Unknown] famotidine 20 mg PO DAILY 09/08/21 [History Last Taken Unknown] ferrous sulfate [FeroSul] 325 mg PO BID 09/08/21 [History Last Taken Unknown] folic acid 1 mg PO DAILY 09/08/21 [History Last Taken Unknown] sennosides [Senokot] 8.6 mg PO BID PRN 09/08/21 [History Last Taken 10/04/21 09:00] tramadol 50 mg PO Q6H PRN PRN 09/08/21 [History Last Taken Unknown] Eliquis 2.5 mg PO BID 10 Days #20 tab 09/25/21 [Rx Last Taken 10/05/21 10:00] acetaminophen 1,000 mg PO Q8 09/28/21 [History Last Taken 10/05/21 10:00] aspirin 325 mg PO DAILY 09/28/21 [History Last Taken Unknown] pantoprazole 40 mg PO DAILY 09/28/21 [History Last Taken 10/05/21 10:00] polysaccharide iron complex [Ferrex 150] 150 mg PO BIDCM 09/28/21 [History Last Taken Unknown] Allergy/AdvReac Type Severity Reaction Status Date / Time No Known Drug Allergies Allergy NONE Verified 10/13/21 07:24 Family History Mother CAD (coronary artery disease) Sister Cancer lung Surgical History (Updated 10/16/21 @ 14:[address] Justyna Denney MD) H/O coronary artery bypass surgery (1983) History of appendectomy History of carpal tunnel release History of exploratory laparotomy History of left heart catheterization (08/13/21) History of right hip replacement History of surgical removal of skin lesion History of total bilateral knee replacement History of total left hip replacement S/P small bowel resection Social History household members: spouse Smoking Status: Former smoker alcohol intake: never substance use type: does not use Physical Exam Const alert and no apparent distress General Appearance: cooperative Exam Limitations: no limitations HEENT normocephalic and head/scalp atraumatic Eyes PERRL and EOMs intact bilaterally Neck supple and No nodes Resp normal air movement and clear to auscultation bilaterally Cardio regular rate and regular rhythm GI soft to palpation and non-distended GI Narrative: mild soreness, THEA drain in place Extremity no clubbing, cyanosis or edema Skin no rashes or lesions noted Neuro CN's II-XII intact bilaterally Medical Records Data Medical Nutrition Assessment Dietitian: Malnutrition Criteria Met Start: 10/13/21 14:59 Freq: Status: Active Protocol: Document 10/29/21 11:21 [facility] (Rec: 10/29/21 11:21 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 Will monitor plan of care and adjust TPN recommendations as appropriate. 2) Continue daily weights and monitoring of electrolytes. 3.) NPO at this time. Recommend advance diet as tolerated to transitional with high protein supplements. Lab / Micro Data Result Diagrams: 10/29/21 04:40 10/29/21 04:40 Labs: Laboratory Results - last 24 hr 10/28/21 17:36: POC Glucose 151 H 10/28/21 23:23: POC Glucose 105 10/29/21 04:40: WBC 10.0, RBC 2.51 L, Hgb 7.4 L, Hct 23.5 L, MCV 93.6, MCH 29.5, MCHC 31.5 L, RDW Std Deviation 57.6 H, RDW Coeff of Denise 17.2 H, Plt Count 293, MPV 10.3, Immature Gran % (Auto) 0.600, Neut % (Auto) 86.2 H, Lymph % (Auto) 8.5 L, [place] % (Auto) 4.1, Eos % (Auto) 0.5, Baso % (Auto) 0.1, Absolute Neuts (auto) 8.6 H, Absolute Lymphs (auto) 0.85, Nucleated RBC % 0 10/29/21 04:40: Sodium 143, Potassium 4.0, Chloride 116 H, Carbon Dioxide 22.0, Anion Gap 5, BUN 49 H, Creatinine 0.66 L, Estim Creat Clear Calc 53.71, Est GFR (MDRD) Af Amer 147, Est GFR (MDRD) Non-Af 121, BUN/Creatinine Ratio 74.0 H, Glucose 111 H, Calcium 7.5 L 10/29/21 04:40: Total Bilirubin 0.40, Direct Bilirubin 0.25, AST 278 H, ALT 323 H, Alkaline Phosphatase 137 H, Total Protein 5.6 L, Albumin 1.3 L, Globulin 4.3 H 10/29/21 04:40: Magnesium 2.3 Micro: Microbiology 10/25/21 Unknown Aspirate - Abdominal Gram Stain - Final 10/25/21 Unknown Aspirate - Abdominal Wound Culture - Final Escherichia coli 10/25/21 Unknown Aspirate - Abdominal Anaerobic Culture - Preliminary Checking for anaerobes, further studies to follow. 10/26/21 06:10 Blood Culture (Wb) - Left Hand Blood Culture - Preliminary No growth in 48 hours. 10/26/21 06:14 Blood Culture (Wb) - Left Forearm Blood Culture - Preliminary No growth in 48 hours.
[2021-10-29 12:11] LABS: Bedside Glucose 119 mg/dL (70-110)
[2021-10-29] MEDS: TPN - Clinimix E 8%-14% Soln 2,000 ML with Multivitamins 10 ML, Trace Elements 1 ML, Fo... 42 ML IV (16:16)
[2021-10-29] MEDS: Fat Emulsions 20% 250 ML IV (16:16)
--- NOTE | 2021-10-29 16:54 | CON.PCM.PA_ITS ---
Assessment & Plan Assessment/Plan (1) Debility: (2) Ischemic necrosis of small bowel: (3) Sepsis: (4) S/P small bowel resection: (5) Iron deficiency anemia: QUALIFIERS: Iron deficiency anemia type: unspecified iron deficiency Qualified Code(s): D50.9 - Iron deficiency anemia, unspecified (6) Coronary artery disease: QUALIFIERS: Associated angina: without angina Coronary Disease- Associated Artery/Lesion type: [place] artery [place] vs. transplanted heart: [place] heart Qualified Code(s): I25.10 - Atherosclerotic heart disease of [place] coronary artery without angina pectoris (7) Gastroesophageal reflux disease: QUALIFIERS: Esophagitis presence: without esophagitis Qualified Code(s): K21.9 - Gastro-esophageal reflux disease without esophagitis (8) Atrial fibrillation: QUALIFIERS: Atrial fibrillation type: paroxysmal Qualified Code(s): I48.0 - Paroxysmal atrial fibrillation (9) Peripheral arterial occlusive disease: (10) Hypertension: QUALIFIERS: Hypertension type: unspecified Qualified Code(s): I10 - Essential (primary) hypertension PLAN: 86-year-old male with complicated and prolonged hospital course, recent small bowel obstruction and complications requiring additional surgeries and ICU stay, seen today for palliative care consultation for supportive management when he is discharged. 1. Debility and weakness: Again, prolonged hospital stay. He will require extensive therapy when discharged, likely back to TCU. He appears somewhat lethargic. He has fentanyl ordered for pain and liquid Tylenol. We will continue to follow 2. Ischemic bowel/sepsis/SBO: Managed by surgery. He has been improving. Vitals are stable. Again, will require prolonged course of recovery. 3. ELIJAH/CAD/GERD/paroxysmal A. fib/PAD/hypertension: Complicates overall care, management, recovery, and prognosis. Patient has multiple comorbid conditions and is at high risk for rehospitalization. He has been in the hospital since earlier in September. Family did consider hospice at one point, however patient started improving so they are pursuing aggressive treatment for now. Patient does have a DNR CCA with no intubation. Thank you for the opportunity to participate in this patient's care, please do not hesitate to contact [facility] with any further questions or concerns. Palliative direct line is [phone]. We will follow up after discharge and will discuss palliative services further at that time. Greater than 50% of F2F visit dedicated to education and counseling of palliative care services, medications, comorbid conditions and potential assistance with management, and plan of care moving forward. Start time: 1645 End time: 1742 HPI Consult Data Date of Consult: 10/29/21 HPI Narrative HPI Narrative: CARIDAD WARD, is a 86 M who presented to [facility] 10/13/2021 with abdominal pain. Patient actually fell and broke his left hip in September and was eventually discharged to TCU for further rehab. He then developed abdominal pain and n/v, found to have small bowel obstruction that required surgical intervention. He was eventually discharged back to TCU and developed the same symptoms and was sent back to the ED for further evaluation. Patient ended up in the ICU with sepsis secondary to gangrenous bowel, small bowel obstruction, and acute hypoxemic respiratory failure. Sepsis was due to ESBL E. coli intra-abdominal abscess in the setting of necrotic bowel. He did have organ dysfunction with ARCIHE and acute liver injury. He did not require any vasopressor support. Infectious disease was consulted today and recommended stopping antibiotics after a total of 5 days. Hospice was originally consulted in the ICU, however patient is doing better so palliative care consultation was requested. He was transferred from ICU to PCU. Patient has been intermittently flipping in and out of atrial fibrillation. He is not currently anticoagulated. Patient is receiving TPN for nutrition. He also continues with an NG tube that is still draining bilious fluid. Nursing states that family was feeding him Jell-O today despite him being n.p.o. and having an NG tube. He is also taking significant amount ice chips. He is answering questions but unintelligible, has a very dry mouth and is mumbling. He states something about having pain med patient is at home. It appears he takes tramadol 50 mg every 6 hours as needed. He shakes his head no when asked if he is having any significant pain currently. He appears to be resting in bed comfortably and sleeping. [facility] Medical History Arthritis Atherosclerosis of coronary artery of [place] heart without angina pectoris Chronic atrial flutter Depression Essential hypertension Hearing loss, left Hearing loss, right History of [place] (myocardial infarction) (1983) Hyperlipidemia Left ventricular hypertrophy New onset atrial flutter (02/08/20) Obesity Osteoarthritis Osteoporosis Periprosthetic fracture around internal prosthetic left hip joint Venous insufficiency of both lower extremities Home Medications amlodipine 10 mg PO DAILY 06/23/13 [History Last Taken 10/05/21 10:00] pentoxifylline 400 mg PO BID 06/23/13 [History Last Taken 10/05/21 10:00] rosuvastatin 20 mg PO QHS 06/23/13 [History Last Taken 10/04/21 22:00] metoprolol tartrate 100 mg-hydrochlorothiazide 25 mg tablet 1 tab PO DAILY 02/24/20 [History Last Taken 08/13/21] multivitamin 1 tab PO DAILY 02/24/20 [History Last Taken Unknown] omega-3 fatty acids-fish oil 360 mg-1,200 mg capsule 1 cap PO DAILY 02/24/20 [History Last Taken Unknown] ramipril 10 mg capsule 10 mg PO DAILY cap 02/24/20 [History Last Taken 10/05/21 10:00] furosemide 20 mg tablet 20 mg PO DAILY PRN PRN tab 07/19/21 [History Last Taken Unknown] famotidine 20 mg PO DAILY 09/08/21 [History Last Taken Unknown] ferrous sulfate [FeroSul] 325 mg PO BID 09/08/21 [History Last Taken Unknown] folic acid 1 mg PO DAILY 09/08/21 [History Last Taken Unknown] sennosides [Senokot] 8.6 mg PO BID PRN 09/08/21 [History Last Taken 10/04/21 09:00] tramadol 50 mg PO Q6H PRN PRN 09/08/21 [History Last Taken Unknown] Eliquis 2.5 mg PO BID 10 Days #20 tab 09/25/21 [Rx Last Taken 10/05/21 10:00] acetaminophen 1,000 mg PO Q8 09/28/21 [History Last Taken 10/05/21 10:00] aspirin 325 mg PO DAILY 09/28/21 [History Last Taken Unknown] pantoprazole 40 mg PO DAILY 09/28/21 [History Last Taken 10/05/21 10:00] polysaccharide iron complex [Ferrex 150] 150 mg PO BIDCM 09/28/21 [History Last Taken Unknown] Allergy/AdvReac Type Severity Reaction Status Date / Time No Known Drug Allergies Allergy NONE Verified 10/13/21 07:24 Family History Mother CAD (coronary artery disease) Sister Cancer lung Surgical History H/O coronary artery bypass surgery (1983) History of appendectomy History of carpal tunnel release History of exploratory laparotomy History of left heart catheterization (08/13/21) History of right hip replacement History of surgical removal of skin lesion History of total bilateral knee replacement History of total left hip replacement S/P small bowel resection Social History household members: spouse Smoking Status: Former smoker alcohol intake: never substance use type: does not use ROS ROS Narrative Review of systems otherwise negative from a constitutional, HEENT, respiratory, cardiovascular, GI, genitourinary, musculoskeletal, skin, neurologic, psychiatric and hematologic system unless stated above. Physical Exam Const Constitutional Narrative: Lethargic but arousable, answering questions but difficult to understand speech Nutritional Appearance: cachectic HEENT normocephalic and head/scalp atraumatic Neck supple General: trachea midline Resp normal respiratory effort Auscultation: rhonchi and diminished lung sounds Cardio S1 normal heart sound and S2 normal heart sound Rhythm: abnormal rhythm irregularly irregular Heart Sounds: murmur GI GI Narrative: dressings intact. Palpation: tender Extremity General Extremity: edema; Negative for clubbing or cyanosis Skin Skin Narrative: pale. LE vascular changes. Neuro Neuro Narrative: limited exam 2/2 lethargy Psych Psych Narrative: answering questions but not opening eyes, mumbling, mouth very dry so difficult to understand Appearance: other
[2021-10-29 18:06] LABS: Bedside Glucose 124 mg/dL (70-110)
[2021-10-29] MEDS: Atorvastatin Calcium 40 MG Tablet NG (22:30)
[2021-10-30] VITALS (15 sets, daily range): BP systolic 101–124; BP diastolic 48–57; PULSE 58–95; RESP 16–18; TEMP 36.3–37.2; O2SAT 90–98
[2021-10-30 00:16] LABS: Bedside Glucose 104 mg/dL (70-110)
[2021-10-30 06:05] LABS: Bedside Glucose 101 mg/dL (70-110)
[2021-10-30 06:30] LABS: Absolute Lymphocyte Count 0.98 X10^3/uL (0.83-4.51); Absolute Neutrophil Count 7.3 X10^3/uL (2.0-7.7); Basophil# 0.01 X10^3/uL; Basophil% 0.1 % (0-1); Eosinophil# 0.11 X10^3/uL; Eosinophils% 1.2 % (0-5); Hematocrit 24.4 % (40-54); Hemoglobin 7.7 g/dL (13.0-16.5); Lymphocyte # 0.98 X10^3/ul (0.83-4.51); Lymphocyte % 10.7 % (19-41); Mean Corp Hgb Conc 31.6 g/dL (32-36); Mean Corpuscular Hgb 29.2 pg (27.0-32.0); Mean Corpuscular Volume 92.4 fL (80-94); Mean Platelet Vol. 10.4 fl (6.2-12.0); Monocyte# 0.64 X10^3/uL; NRBC Flagged by Analyzer 0 % (0-5); Neutrophil # 7.33 X10^3/uL (2.7-7.7); Neutrophil % 80.3 % (47-70); Platelet Count 269 K/mm3 (150-450); RBC Distribution Width CV 17.2 % (11.6-14.6); Red Blood Count 2.64 M/mm3 (4.6-6.2); White Blood Count 9.1 K/mm3 (4.4-11.0)
[2021-10-30 07:20] LABS: ALB/GLOB Ratio 0.3 RATIO (0.9-2.4); AST(SGOT) 236 U/L (15-37); Alanine Aminotransfer ALT/SGPT 303 U/L (16-61); Albumin, Serum 1.3 g/dL (3.2-5.0); Alkaline Phosphatase 218 U/L (45-117); Anion Gap 4 (5-15); BUN 33 mg/dL (7-18); BUN/Creat Ratio 58.8 RATIO (10-20); Calcium,Total 7.6 mg/dL (8.5-10.1); Chloride 114 mmol/L (98-107); Creatinine, Serum 0.56 mg/dL (0.70-1.30); EST Glomerular Filtration Rate 147 mL/min (>60); Est Glom Filt Rate - Afr Amer 178 mL/min (>60); Estimated Creatinine Clearance 54.92 ml/min; Globulin 4.6 g/dL (2.2-4.2); Glucose 98 mg/dL (74-106); Potassium 3.6 mmol/L (3.5-5.1); Protein, Total 5.9 g/dL (6.4-8.2); Sodium Level 142 mmol/L (136-145)
--- NOTE | 2021-10-30 08:24 | PCM.PN.INT ---
Assessment & Plan Assessment/Plan (1) Sepsis: PLAN: RECOMMENDATIONS: 1. Continue antimicrobials per ID recommendations. 2. Hemodynamically stable on room air. Will sign off from a critical care perspective 3. Consider discontinuation of NG 4. Encourage incentive spirometer use while in bed. 5. Continue TPN. 6. Continue to hold antihypertensives. 7. Continue to monitor H&H and transfuse if hemoglobin drops below 7 g/dL. IMPRESSIONS: 1. Sepsis The patient has sepsis due to ESBL E. coli intra-abdominal abscess in the setting of necrotic bowel requiring surgical intervention with acute sepsis related organ dysfunction as evidenced by acute kidney injury, acute liver injury, and systolic blood pressure less than 90 mmHg. The patient remains on broad-spectrum antimicrobials per ID recommendations. Blood pressures appear to be slowly improving with antibiotics. Plan to continue current supportive measures. Patient hemodynamically stable on room air. Will sign off from a critical care perspective 2. Ischemic bowel, now postop day #4 status post ileocecectomy and THEA drain placement Continue routine postoperative care per general surgery recommendations. Patient is reporting passing gas, but still has significant NG output. Continue TPN for nutritional support. Patient did have a bowel movement overnight. Possible removal of NG. 3. Acute kidney injury/acute liver injury Improving. Appears to be secondary to #1. No acute intervention is warranted at this time. Continue to trend renal and liver function for now. Vasopressor support can be utilized if needed to maintain hemodynamic stability. 4. Acute hypoxemic respiratory failure The patient is currently documented to be overall net +20.8 L for the hospitalization. In addition, he has had extensive abdominal surgery and likely has a significant amount of atelectasis. Patient also noted to have some possible obstructive sleep apnea, which may be adding to nocturnal hypoxia. Plan to continue supplemental oxygen to maintain saturations at or above 90%. Encourage incentive spirometer use. Despite room air, patient may benefit from a gentle diuresis given significant fluid positive status. Will need to watch blood pressures closely. 5. Anemia Hemoglobin was noted to be down to 7.4 g/dL this morning. There is likely a dilutional component to this. Recommend continuing to monitor H&H daily. Transfuse if hemoglobin drops below 7 g/dL. Continue PPI therapy as ordered. 6. Periprosthetic fracture of left femur status post hip replacement Continue work with PT and follow-up with orthopedic surgery on outpatient basis. 7. History of paroxysmal atrial fibrillation/coronary artery disease/hypertension/GERD Complicates care, management, recovery and prognosis. Continue to hold home antihypertensives. Continue PPI therapy. This note was generated with [employer] dictation software. It may contain incorrect words, spelling, and punctuation that were not noted in checking the note before signing. Subjective Subjective Patient did well overnight. No acute issues were reported. Nursing did report patient had a bowel movement. Patient is asking for NG to be removed. Patient is technically n.p.o. at this time, so nursing was concerned about ability to get p.o. meds. No bleeding has been reported. Patient believes his abdominal pain is improving. Objective Data Objective Data Vital Signs: Vital Signs Temp Pulse Resp BP Pulse Ox 36.9 C 81 16 124/52 H 92 10/30/21 03:30 10/30/21 07:00 10/30/21 03:30 10/30/21 03:30 10/30/21 03:30 Oxygen Flow Rate (L/min) 2 Oxygen Delivery Method [5] Room Air Oxygen Delivery Method [4] Room Air Oxygen Delivery Method [3] Room Air Oxygen Delivery Method [2] Room Air Oxygen Delivery Method [1 ( Room Air Initial Baseline)] Oxygen Delivery Method Room Air Weight: 71.9 kg Body Mass Index (BMI) 20.7 Intake & Output: Intake and Output for Last 24 Hours 10/28/21 10/29/21 10/30/21 23:59 23:59 23:59 Intake Total 4611.12 / 5211.12 4005.4 / 4425.4 1110 / 1110 Output Total 2895 / 3270 3800 / 4310 710 / 710 Balance 1716.12 / 1941.12 205.4 / 115.4 400 / 400 Medical Nutrition Assessment Dietitian: Malnutrition Criteria Met Start: 10/13/21 14:59 Freq: Status: Active Protocol: Document 10/29/21 11:21 ARETHA (Rec: 10/29/21 11:21 ARETHA [id number]) Nutrition Malnutrition Evidence of Malnutrition Exists Yes Malnutrition (severe): Acute Illness/Injury Evidenced By Suboptimal Energy Intake ( Severe),Weight Loss (Severe), Physical Changes (Mild) Clinical Problem Acute Disease or Injury Related Malnutrition Etiology severe, acute malnutrition r/t inadequate energy intake d/t recent hospitalizations, SBO, GI dysfunction Signs/Symptoms as evidenced by unintentional 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 Will monitor plan of care and adjust TPN recommendations as appropriate. 2) Continue daily weights and monitoring of electrolytes. 3.) NPO at this time. Recommend advance diet as tolerated to transitional with high protein supplements. Lab / Micro Data Result Diagrams: 10/30/21 06:02 10/30/21 06:02 Labs: Laboratory Results - last 24 hr 10/29/21 04:40: Total Bilirubin 0.40, Direct Bilirubin 0.25, AST 278 H, ALT 323 H, Alkaline Phosphatase 137 H, Total Protein 5.6 L, Albumin 1.3 L, Globulin 4.3 H 10/29/21 04:40: Magnesium 2.3 10/29/21 12:06: POC Glucose 119 H 10/29/21 18:01: POC Glucose 124 H 10/30/21 00:07: POC Glucose 104 10/30/21 05:41: POC Glucose 101 10/30/21 06:02: WBC 9.1, RBC 2.64 L, Hgb 7.7 L, Hct 24.4 L, MCV 92.4, MCH 29.2, MCHC 31.6 L, RDW Std Deviation 58.0 H, RDW Coeff of Denise 17.2 H, Plt Count 269, MPV 10.4, Immature Gran % (Auto) 0.700, Neut % (Auto) 80.3 H, Lymph % (Auto) 10.7 L, [place] % (Auto) 7.0, Eos % (Auto) 1.2, Baso % (Auto) 0.1, Absolute Neuts (auto) 7.3, Absolute Lymphs (auto) 0.98, Nucleated RBC % 0 10/30/21 06:02: Sodium 142, Potassium 3.6, Chloride 114 H, Carbon Dioxide 24.0, Anion Gap 4 L, BUN 33 H, Creatinine 0.56 L, Estim Creat Clear Calc 54.92, Est GFR (MDRD) Af Amer 178, Est GFR (MDRD) Non-Af 147, BUN/Creatinine Ratio 58.8 H, Glucose 98, Calcium 7.6 L, Total Bilirubin 0.50, AST 236 H, ALT 303 H, Alkaline Phosphatase 218 H, Total Protein 5.9 L, Albumin 1.3 L, Globulin 4.6 H, Albumin/Globulin Ratio 0.3 L Micro: Microbiology 10/25/21 Unknown Aspirate - Abdominal Gram Stain - Final 10/25/21 Unknown Aspirate - Abdominal Wound Culture - Final Escherichia coli 10/25/21 Unknown Aspirate - Abdominal Anaerobic Culture - Preliminary Checking for anaerobes, further studies to follow. 10/26/21 06:10 Blood Culture (Wb) - Left Hand Blood Culture - Preliminary No growth in 48 hours. 10/26/21 06:14 Blood Culture (Wb) - Left Forearm Blood Culture - Preliminary No growth in 48 hours. 10/25/21 05:32 Stool Enteric Bacteriology - Final 10/25/21 05:32 Stool C. difficile DNA Amplification - Final 10/25/21 05:32 Stool Stool Lactoferrin - Final Physical Exam Const alert General Appearance: ill appearing and frail HEENT normocephalic and head/scalp atraumatic HEENT Narrative: NG in place Eyes PERRL, EOMs intact bilaterally and conjunctivae normal Neck supple General: trachea midline Chest inspection of chest normal Resp Resp Narrative: On room air. Effort and Inspection: tachypneic Auscultation: diminished lung sounds Cardio S1 normal heart sound and S2 normal heart sound Rate: tachycardic Heart Sounds: murmur GI soft to palpation GI Narrative: Wound is dressed with THEA drain in place. Extremity no clubbing, cyanosis or edema Skin no rashes or lesions noted Neuro moves all extremities and no focal motor deficits Psych cooperative Charges/Coding Visit Charges Inpatient E&M: 32870 Subs Hosp L2
--- NOTE | 2021-10-30 08:47 | PCM.PN.SRG ---
Subjective Subjective Patient had diarrhea overnight and minimal out of NG. Objective Data Objective Data Vital Signs: Vital Signs Temp Pulse Resp BP Pulse Ox 97.4 F L 95 18 120/53 L 94 10/30/21 08:00 10/30/21 08:00 10/30/21 08:00 10/30/21 08:00 10/30/21 08:00 Oxygen Flow Rate (L/min) 2 Oxygen Delivery Method [5] Room Air Oxygen Delivery Method [4] Room Air Oxygen Delivery Method [3] Room Air Oxygen Delivery Method [2] Room Air Oxygen Delivery Method [1 ( Room Air Initial Baseline)] Oxygen Delivery Method Room Air Weight: 158 lb 8.198 oz Body Mass Index (BMI) 20.7 Intake & Output: Intake and Output for Last 24 Hours 10/28/21 10/29/21 10/30/21 23:59 23:59 23:59 Intake Total 4611.12 / 5211.12 4005.4 / 4425.4 1110 / 1110 Output Total 2895 / 3270 3800 / 4310 710 / 710 Balance 1716.12 / 1941.12 205.4 / 115.4 400 / 400 Medical Nutrition Assessment Dietitian: Malnutrition Criteria Met Start: 10/13/21 14:59 Freq: Status: Active Protocol: Document 10/29/21 11:21 ARETHA (Rec: 10/29/21 11:21 ARETHA [id number]) Nutrition Malnutrition Evidence of Malnutrition Exists Yes Malnutrition (severe): Acute Illness/Injury Evidenced By Suboptimal Energy Intake ( Severe),Weight Loss (Severe), Physical Changes (Mild) Clinical Problem Acute Disease or Injury Related Malnutrition Etiology severe, acute malnutrition r/t inadequate energy intake d/t recent hospitalizations, SBO, GI dysfunction Signs/Symptoms as evidenced by unintentional 22.9#/12.5% 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 Will monitor plan of care and adjust TPN recommendations as appropriate. 2) Continue daily weights and monitoring of electrolytes. 3.) NPO at this time. Recommend advance diet as tolerated to transitional with high protein supplements. Lab / Micro Data Result Diagrams: 10/30/21 06:02 10/30/21 06:02 Labs: Laboratory Results - last 24 hr 10/29/21 04:40: Magnesium 2.3 10/29/21 12:06: POC Glucose 119 H 10/29/21 18:01: POC Glucose 124 H 10/30/21 00:07: POC Glucose 104 10/30/21 05:41: POC Glucose 101 10/30/21 06:02: WBC 9.1, RBC 2.64 L, Hgb 7.7 L, Hct 24.4 L, MCV 92.4, MCH 29.2, MCHC 31.6 L, RDW Std Deviation 58.0 H, RDW Coeff of Denise 17.2 H, Plt Count 269, MPV 10.4, Immature Gran % (Auto) 0.700, Neut % (Auto) 80.3 H, Lymph % (Auto) 10.7 L, [place] % (Auto) 7.0, Eos % (Auto) 1.2, Baso % (Auto) 0.1, Absolute Neuts (auto) 7.3, Absolute Lymphs (auto) 0.98, Nucleated RBC % 0 10/30/21 06:02: Sodium 142, Potassium 3.6, Chloride 114 H, Carbon Dioxide 24.0, Anion Gap 4 L, BUN 33 H, Creatinine 0.56 L, Estim Creat Clear Calc 54.92, Est GFR (MDRD) Af Amer 178, Est GFR (MDRD) Non-Af 147, BUN/Creatinine Ratio 58.8 H, Glucose 98, Calcium 7.6 L, Total Bilirubin 0.50, AST 236 H, ALT 303 H, Alkaline Phosphatase 218 H, Total Protein 5.9 L, Albumin 1.3 L, Globulin 4.6 H, Albumin/Globulin Ratio 0.3 L Micro: Microbiology 10/25/21 Unknown Aspirate - Abdominal Gram Stain - Final 10/25/21 Unknown Aspirate - Abdominal Wound Culture - Final Escherichia coli 10/25/21 Unknown Aspirate - Abdominal Anaerobic Culture - Preliminary Checking for anaerobes, further studies to follow. 10/26/21 06:10 Blood Culture (Wb) - Left Hand Blood Culture - Preliminary No growth in 48 hours. 10/26/21 06:14 Blood Culture (Wb) - Left Forearm Blood Culture - Preliminary No growth in 48 hours. 10/25/21 05:32 Stool Enteric Bacteriology - Final 10/25/21 05:32 Stool C. difficile DNA Amplification - Final 10/25/21 05:32 Stool Stool Lactoferrin - Final Assessment & Plan Assessment/Plan (1) S/P small bowel resection: (2) Ischemic necrosis of small bowel: (3) Sepsis: (4) Leukocytosis: (5) History of atrial fibrillation: PLAN: Blood pressure continues to improve good urine output. Patient did have diarrhea overnight-- DC NG start clears Leukocytosis?within normal limits still has a left shift which is improving --- on meropenem?stopping today per ID Liver function improving Continue TPN Discussed with [id number] [place] as well as his would not plan for hospice today --- may be appropriate on . Appreciate hospitalist assistance Started Nikita Denney M.D. Pager: [phone] [facility] [address] [place] [address], [facility], [address] [place] [address] Office: [phone]
--- NOTE | 2021-10-30 09:20 | WOUNDNOTE ---
wound photo: abdomen
--- NOTE | 2021-10-30 09:21 | WOUNDNOTE ---
wound photo: left heel
[2021-10-30] MEDS: Menthol/Lanolin/Calamine/Znox 113 GM Tube 1 APPLIC TOPICAL ×2 (09:34→22:10)
[2021-10-30] MEDS: Iron Polysaccharide Complex 150 MG CAPSULE PO ×2 (09:34→17:01)
[2021-10-30] MEDS: Enoxaparin 40 MG/0.4 ML Syringe SC (09:35)
[2021-10-30] MEDS: Metoprolol Tartrate 100 MG Tablet PO ×2 (09:35→22:17)
[2021-10-30] MEDS: amLODIPine 10 MG Tablet NG (09:36)
[2021-10-30] MEDS: Pentoxifylline 400 MG Tablet PO ×2 (09:36→22:18)
[2021-10-30 10:14] LABS: Pathologist Review Reviewed
--- NOTE | 2021-10-30 10:14 | PCM.PN.ID ---
Physical Exam Narrative Lethargic this AM, no fever overnight Const no apparent distress Resp normal air movement and clear to auscultation bilaterally Cardio regular rate and regular rhythm GI soft to palpation and non-distended Skin no rashes or lesions noted ID ID: Route of nutrition/ use of supplements: [] Nutritional Intake: [] IV Site: [] Mahan Catheter: [] Assessment & Plan Assessment/Plan (1) Ischemic necrosis of small bowel: PLAN: Aspirate 10/25 with esbl ecoli. Taken to OR 10/26/[address] Denney for ileocecectomy. Wbc dramatically improved, ARCHIE resolved, fever resolved. On meropenem. Plan at this point will be for 5 days total of abx starting from 10/26 surgery now that he has had good source control. Also plan on stopping isolation at that point. Pt reported covid vaccine x3 but he is not completely sure. Family discussing goals of care. Will follow (2) Sepsis:
--- NOTE | 2021-10-30 10:59 | PN.HOSP_ITS ---
Subjective Subjective Follow-up on sepsis secondary to gangrenous bowel/small bowel obstruction/acute hypoxic respiratory failure: Patient was seen and examined. He has had diarrhea overnight. NG tube had minimal output; has since been taking up. Denied any new complaints. Objective Data Objective Data Vital Signs: Vital Signs Temp Pulse Resp BP Pulse Ox 97.4 F L 95 18 120/53 L 94 10/30/21 08:00 10/30/21 09:35 10/30/21 08:00 10/30/21 09:35 10/30/21 08:00 Oxygen Flow Rate (L/min) 2 Oxygen Delivery Method [5] Room Air Oxygen Delivery Method [4] Room Air Oxygen Delivery Method [3] Room Air Oxygen Delivery Method [2] Room Air Oxygen Delivery Method [1 ( Room Air Initial Baseline)] Oxygen Delivery Method Room Air Weight: 71.9 kg Body Mass Index (BMI) 20.7 Intake & Output: Intake and Output for Last 24 Hours 10/28/21 10/29/21 10/30/21 23:59 23:59 23:59 Intake Total 4611.12 / 5211.12 4005.4 / 4425.4 1340 / 1340 Output Total 2895 / 3270 3800 / 4310 710 / 710 Balance 1716.12 / 1941.12 205.4 / 115.4 630 / 630 Medical Nutrition Assessment Dietitian: Malnutrition Criteria Met Start: 10/13/21 14:59 Freq: Status: Active Protocol: Document 10/29/21 11:21 ARETHA (Rec: 10/29/21 11:21 [facility] [id number]) Nutrition Malnutrition Evidence of Malnutrition Exists Yes Malnutrition (severe): Acute Illness/Injury Evidenced By Suboptimal Energy Intake ( Severe),Weight Loss (Severe), Physical Changes (Mild) Clinical Problem Acute Disease or Injury Related Malnutrition Etiology severe, acute malnutrition r/t inadequate energy intake d/t recent hospitalizations, SBO, GI dysfunction Signs/Symptoms as evidenced by unintentional 22.9#/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 Will monitor plan of care and adjust TPN recommendations as appropriate. 2) Continue daily weights and monitoring of electrolytes. 3.) NPO at this time. Recommend advance diet as tolerated to transitional with high protein supplements. Lab / Micro Data Result Diagrams: 10/30/21 06:02 10/30/21 06:02 Labs: Laboratory Results - last 24 hr 10/27/21 03:25: Diff Path Review Reviewed 10/29/21 12:06: POC Glucose 119 H 10/29/21 18:01: POC Glucose 124 H 10/30/21 00:07: POC Glucose 104 10/30/21 05:41: POC Glucose 101 10/30/21 06:02: WBC 9.1, RBC 2.64 L, Hgb 7.7 L, Hct 24.4 L, MCV 92.4, MCH 29.2, MCHC 31.6 L, RDW Std Deviation 58.0 H, RDW Coeff of Denise 17.2 H, Plt Count 269, MPV 10.4, Immature Gran % (Auto) 0.700, Neut % (Auto) 80.3 H, Lymph % (Auto) 10.7 L, [place] % (Auto) 7.0, Eos % (Auto) 1.2, Baso % (Auto) 0.1, Absolute Neuts (auto) 7.3, Absolute Lymphs (auto) 0.98, Nucleated RBC % 0 10/30/21 06:02: Sodium 142, Potassium 3.6, Chloride 114 H, Carbon Dioxide 24.0, Anion Gap 4 L, BUN 33 H, Creatinine 0.56 L, Estim Creat Clear Calc 54.92, Est GFR (MDRD) Af Amer 178, Est GFR (MDRD) Non-Af 147, BUN/Creatinine Ratio 58.8 H, Glucose 98, Calcium 7.6 L, Total Bilirubin 0.50, AST 236 H, ALT 303 H, Alkaline Phosphatase 218 H, Total Protein 5.9 L, Albumin 1.3 L, Globulin 4.6 H, Albumin/Globulin Ratio 0.3 L Micro: Microbiology 10/25/21 Unknown Aspirate - Abdominal Gram Stain - Final 10/25/21 Unknown Aspirate - Abdominal Wound Culture - Final Escherichia coli 10/25/21 Unknown Aspirate - Abdominal Anaerobic Culture - Preliminary Checking for anaerobes, further studies to follow. 10/26/21 06:10 Blood Culture (Wb) - Left Hand Blood Culture - Preliminary No growth in 48 hours. 10/26/21 06:14 Blood Culture (Wb) - Left Forearm Blood Culture - Preliminary No growth in 48 hours. 10/25/21 05:32 Stool Enteric Bacteriology - Final 10/25/21 05:32 Stool C. difficile DNA Amplification - Final 10/25/21 05:32 Stool Stool Lactoferrin - Final Physical Exam Narrative Physical exam: General: Alert, Oriented x3, Cooperative, No apparent distress HEENT: Atraumatic Oral: Moist Mucosa Neck: Supple Lungs: Diminished to auscultation at the bases Cardiovascular: HS I+II, regular, no murmurs Abdomen: Dressing intact and clean, bowel Sounds hypoactive, Soft, Non Tender Extremities: No edema Const alert, oriented x3 and no apparent distress Constitutional Narrative: drowsy but arousable General Appearance: cooperative Exam Limitations: no limitations HEENT normocephalic and head/scalp atraumatic; Negative for hearing grossly normal concepcion aterally Eyes PERRL, EOMs intact bilaterally and conjunctivae normal Eyes Narrative: Neck no lymphadenopathy, supple, no JVD and no carotid bruits Neck Narrative: Resp normal respiratory effort, no retractions, no use of accessory muscles and clear to auscultation bilaterally Resp Narrative: mildly diminished breath sounds bibasally, no wheezes or crackles. On 5L of oxygen by nasal canula Auscultation: Negative for crackles, rales, rhonchi or wheezes Cardio regular rate, regular rhythm, S1 normal heart sound, S2 normal heart sound, no murmurs, no rub, no gallops, no clicks and no JVD GI normal to inspection, nondistended, normoactive bowel sounds, soft to palpation and non-tender GI Narrative: Intact dressing over surgical site. soft, non tender, NG tube in situ. Mild abdominal distension, THEA drain in place Extremity normal to inspection, full ROM and no clubbing, cyanosis or edema Extremity Narrative: 1+ bilateral pedal pulses, trace bilateral lower extremity edema, no cyanosis or clubbing Skin no rashes or lesions noted Skin Narrative: Well-healing incision left hip, bilateral lower extremity skin changes consistent with venous stasis that is chronic Neuro no focal motor deficits Neuro Narrative: drowsy but arousable, Generalized weakness Sensorium / Orientation: awake and alert Speech: speech normal Psych affect normal Psych Narrative: drowsy Assessment & Plan Assessment/Plan (1) Ischemic necrosis of small bowel: (2) S/P small bowel resection: (3) Adynamic ileus: (4) History of small bowel obstruction: PLAN: 1. POD#3, s/p ileocecectomy (10/26/21), placement of THEA drain; patches of necrotic ileum at the previous anastomosis and distal to cecum Patient initially presented acute small bowel obstruction with gangrene of the jejenum s/p small bowel resection with anastomosis on 10/15/[address] of abdomen and pelvis on 10/24/21 showed colitis/abscess in the pelvis; status post IR drainage Wound cultures growing E. coli, ESBL WBC count generally improved to 9.1 from previous peak of 30.1 Continue on TPN, general surgery, critical care, ID following Continue IV PPI twice daily 2. Sepsis due to gangrenous bowel, managed as above Continue on IV meropenem ID following 3. Acute hypoxic respiratory failure, improved Likely secondary to atelectasis Chest x-ray on 10/27/21 showed pneumoperitoneum, left lung base atelectasis Continue to wean off oxygen, breathing treatment, encourage use of incentive spirometer 4. 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 Paroxysmal A. fib, currently normal sinus rhythm/ periods of A. fib Continue metoprolol Off Eliquis at the moment; will resume if General surgeon is okay with it 6. Hypotension, improved Continue to hold chlorothiazide and ramipril Continue on amlodipine and metoprolol with holding parameters Continue to monitor blood pressures 7. Severe protein calorie malnutrition related to the above, patient is on TPN, nutrition following 8. Rest of his chronic medical conditions including CAD status post CABG/h yperlipidemia/GERD remained stable Continue on statin, PPI 8. DVT prophylaxis?Lovenox subcu 9. CODE STATUS DNR CCA, no intubation Charges/Coding Visit Charges Inpatient E&M: 75583 Subs Hosp L2
[2021-10-30 11:46] LABS: Bedside Glucose 113 mg/dL (70-110)
--- NOTE | 2021-10-30 12:23 | CHAPLAIN ---
Type of Pastoral Visit ___ Initial Visit _x__ Follow-up Visit ___ On-call Visit ___ General Patient Visit ___ Spiritual Assessment ___ Family Conference ___ Bereavement ___ Rapid Response ___ Code Blue ___ Other (describe below) Pastoral Care Referral From _x__ Patient ___ Family ___ Nurse ___ Physician ___ Senior Sales Associate ___ Senior Android Software Engineer ___ Other (describe below) Sacrament/Intervention _x__ Active listening ___ Anointing ___ Jainism ___ Bereavement ___ Communion _x__ Stacey exploration ___ ___ Life review _x__ Prayer ___ Reconciliation ___ Sacrament of Sick _x__ Supportive presence ___ Wedding ___ Other (describe below) Pastoral Comments follow up visit made to this patient that has been seen a few times in the last couple of months; pt states how weary he is from the poking and cutting but also says that he is seeing some improvement; pt also speaks about dying and I'm not afraid; but when he speaks of dying the patient also gives details about his spiritual concerns and questions; this business services specialist sales listened and gave some responses; pt welcomed prayer; pt expressed thanks for the time and for the help with his spiritual questions
[2021-10-30] MEDS: TPN - Clinimix E 8%-14% Soln 2,000 ML with Multivitamins 10 ML, Trace Elements 1 ML, Fo... 42 ML IV (17:01)
[2021-10-30 18:01] LABS: Bedside Glucose 107 mg/dL (70-110)
[2021-10-30] MEDS: APIXABAN 2.5 MG TABLET PO (22:00)
[2021-10-30] MEDS: Atorvastatin Calcium 40 MG Tablet NG (22:01)
[2021-10-31] VITALS (18 sets, daily range): BP systolic 108–132; BP diastolic 52–74; PULSE 53–85; RESP 16–20; TEMP 36.6–37.2; O2SAT 93–98
[2021-10-31 01:26] LABS: Bedside Glucose 102 mg/dL (70-110)
[2021-10-31 06:16] LABS: Absolute Lymphocyte Count 1.05 X10^3/uL (0.83-4.51); Absolute Neutrophil Count 6.7 X10^3/uL (2.0-7.7); Basophil# 0.01 X10^3/uL; Basophil% 0.1 % (0-1); Eosinophil# 0.14 X10^3/uL; Eosinophils% 1.6 % (0-5); Hematocrit 21.8 % (40-54); Lymphocyte # 1.05 X10^3/ul (0.83-4.51); Lymphocyte % 11.9 % (19-41); Mean Corp Hgb Conc 32.1 g/dL (32-36); Mean Corpuscular Hgb 28.9 pg (27.0-32.0); Mean Corpuscular Volume 90.1 fL (80-94); Mean Platelet Vol. 10.6 fl (6.2-12.0); Monocyte# 0.85 X10^3/uL; Monocyte% 9.6 % (0-10); NRBC Flagged by Analyzer 0 % (0-5); Neutrophil # 6.74 X10^3/uL (2.7-7.7); Platelet Count 245 K/mm3 (150-450); RBC Distribution Width CV 17.1 % (11.6-14.6); RBC Distribution Width SD 55.8 fl (35.1-43.9); Red Blood Count 2.42 M/mm3 (4.6-6.2); White Blood Count 8.9 K/mm3 (4.4-11.0)
[2021-10-31 06:31] LABS: Bedside Glucose 115 mg/dL (70-110)
[2021-10-31 06:46] LABS: AST(SGOT) 139 U/L (15-37); Alanine Aminotransfer ALT/SGPT 214 U/L (16-61); Albumin, Serum 1.2 g/dL (3.2-5.0); Alkaline Phosphatase 209 U/L (45-117); Anion Gap 2 (5-15); BUN 27 mg/dL (7-18); BUN/Creat Ratio 53.6 RATIO (10-20); Bilirubin, Direct 0.25 mg/dL (0.00-0.30); Calcium,Total 7.6 mg/dL (8.5-10.1); Chloride 115 mmol/L (98-107); EST Glomerular Filtration Rate 166 mL/min (>60); Est Glom Filt Rate - Afr Amer 201 mL/min (>60); Estimated Creatinine Clearance 55.76 ml/min; Globulin 4.1 g/dL (2.2-4.2); Glucose 103 mg/dL (74-106); Potassium 3.5 mmol/L (3.5-5.1); Protein, Total 5.3 g/dL (6.4-8.2); Sodium Level 140 mmol/L (136-145)
--- NOTE | 2021-10-31 08:08 | PCM.PN.SRG ---
Subjective Subjective Patient denies any abdominal pain, tolerated clears, still having bowel function Objective Data Objective Data Vital Signs: Vital Signs Temp Pulse Resp BP Pulse Ox 98.5 F 61 18 122/63 H 98 10/31/21 03:30 10/31/21 07:00 10/31/21 03:30 10/31/21 03:30 10/31/21 03:30 Oxygen Flow Rate (L/min) 2 Oxygen Delivery Method [5] Room Air Oxygen Delivery Method [4] Room Air Oxygen Delivery Method [3] Room Air Oxygen Delivery Method [2] Room Air Oxygen Delivery Method [1 ( Room Air Initial Baseline)] Oxygen Delivery Method Room Air Weight: 161 lb 6.054 oz Body Mass Index (BMI) 20.7 Intake & Output: Intake and Output for Last 24 Hours 10/29/21 10/30/21 10/31/21 23:59 23:59 23:59 Intake Total 4005.4 / 4425.4 2878.8 / 3118.8 790 / 790 Output Total 3800 / 4310 1465 / 1742 632 / 632 Balance 205.4 / 115.4 1413.8 / 1376.8 158 / 158 Medical Nutrition Assessment Dietitian: Malnutrition Criteria Met Start: 10/13/21 14:59 Freq: Status: Active Protocol: Document 10/30/21 10:41 AG (Rec: 10/30/21 11:23 [id number]) Nutrition Malnutrition Evidence of Malnutrition Exists Yes Malnutrition (severe): Acute Illness/Injury Evidenced By Suboptimal Energy Intake ( Severe),Weight Loss (Severe), Physical Changes (Mild) Clinical Problem Acute Disease or Injury Related Malnutrition Etiology severe, acute malnutrition r/t inadequate energy intake d/t recent hospitalizations, SBO, GI dysfunction Signs/Symptoms as evidenced by unintentional 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 No insulin or famotidine per provider order. 2) Continue daily weights and monitoring of electrolytes. 3.) Recommend advance diet as tolerated to transitional; currently on clear liquid diet - will add 240mL ensure clear w/ meals. Lab / Micro Data Result Diagrams: 10/31/21 05:50 10/31/21 05:50 Labs: Laboratory Results - last 24 hr 10/27/21 03:25: Diff Path Review Reviewed 10/30/21 11:40: POC Glucose 113 H 10/30/21 17:53: POC Glucose 107 10/31/21 00:19: POC Glucose 102 10/31/21 05:50: WBC 8.9, RBC 2.42 L, Hgb 7.0 L, Hct 21.8 L, MCV 90.1, MCH 28.9, MCHC 32.1, RDW Std Deviation 55.8 H, RDW Coeff of Denise 17.1 H, Plt Count 245, MPV 10.6, Immature Gran % (Auto) 0.800, Neut % (Auto) 76.0 H, Lymph % (Auto) 11.9 L, Gilliam % (Auto) 9.6, Eos % (Auto) 1.6, Baso % (Auto) 0.1, Absolute Neuts (auto) 6.7, Absolute Lymphs (auto) 1.05, Nucleated RBC % 0 10/31/21 05:50: Sodium 140, Potassium 3.5, Chloride 115 H, Carbon Dioxide 23.0, Anion Gap 2 L, BUN 27 H, Creatinine 0.50 L, Estim Creat Clear Calc 55.76, Est GFR (MDRD) Af Amer 201, Est GFR (MDRD) Non-Af 166, BUN/Creatinine Ratio 53.6 H, Glucose 103, Calcium 7.6 L, Total Bilirubin 0.60, Direct Bilirubin 0.25, AST 139 H, ALT 214 H, Alkaline Phosphatase 209 H, Total Protein 5.3 L, Albumin 1.2 L, Globulin 4.1 10/31/21 06:22: POC Glucose 115 H Micro: Microbiology 10/26/21 06:10 Blood Culture (Wb) - Left Hand Blood Culture - Final No growth in 5 days. 10/26/21 06:14 Blood Culture (Wb) - Left Forearm Blood Culture - Final No growth in 5 days. 10/25/21 Unknown Aspirate - Abdominal Gram Stain - Final 10/25/21 Unknown Aspirate - Abdominal Wound Culture - Final Escherichia coli 10/25/21 Unknown Aspirate - Abdominal Anaerobic Culture - Preliminary Checking for anaerobes, further studies to follow. 10/25/21 05:32 Stool Enteric Bacteriology - Final 10/25/21 05:32 Stool C. difficile DNA Amplification - Final 10/25/21 05:32 Stool Stool Lactoferrin - Final Physical Exam Narrative NG in place Const alert and oriented x3 Cardio regular rate GI GI Narrative: Soft, nondistended, tender near incision, incision packed with wet-to-dry, good granulation tissue. THEA serosanguineous Extremity no clubbing, cyanosis or edema Neuro oriented x3 Psych affect normal Assessment & Plan Assessment/Plan (1) S/P small bowel resection: (2) Ischemic necrosis of small bowel: (3) Sepsis: (4) Leukocytosis: (5) History of atrial fibrillation: PLAN: Blood pressure continues to improve good urine output. Patient tolerated clears and continues to have bowel movements, will advance to a full liquid diet. Leukocytosis?resolved, meropenem stopped. Continue TPN Anemia?likely due to fluid shifts not acute blood loss?we will give 1 unit packed red blood cells today, continue Eliquis as patient issues with blood supply to the small bowel could possibly be due to clot or just the atherosclerotic disease. Discussed with [id number] Lorelei as well as his would plan for going home with hospice Friday Appreciate hospitalist assistance Justyna Denney M.D. Pager: [phone] [facility] [address] [place] [address], [facility], [address] [place] [address] Office: [phone]
[2021-10-31] MEDS: Pentoxifylline 400 MG Tablet PO ×2 (09:41→22:31)
[2021-10-31] MEDS: Iron Polysaccharide Complex 150 MG CAPSULE PO ×2 (09:41→16:38)
[2021-10-31] MEDS: APIXABAN 2.5 MG TABLET PO ×2 (09:41→22:30)
[2021-10-31] MEDS: Menthol/Lanolin/Calamine/Znox 113 GM Tube 1 APPLIC TOPICAL ×2 (10:28→22:30)
--- NOTE | 2021-10-31 11:50 | PCM.PN.ID ---
Physical Exam Narrative Feeling better, abd improved, no fever Const alert and no apparent distress General Appearance: cooperative Resp normal air movement and clear to auscultation bilaterally Cardio regular rate and regular rhythm GI soft to palpation, non-tender and non-distended Skin no rashes or lesions noted ID ID: Route of nutrition/ use of supplements: [] Nutritional Intake: [] IV Site: [] Mahan Catheter: [] Assessment & Plan Assessment/Plan (1) Ischemic necrosis of small bowel: PLAN: Aspirate 10/25 with esbl ecoli. Taken to OR 10/26/[address] Denney for ileocecectomy. Wbc dramatically improved, ARCHIE resolved, fever resolved. Will finish meropenem today. Mental status improved. Will follow (2) Sepsis:
[2021-10-31] MEDS: amLODIPine 10 MG Tablet NG (11:54)
[2021-10-31] MEDS: Metoprolol Tartrate 100 MG Tablet PO ×2 (11:54→22:30)
[2021-10-31] MEDS: 0.9% Saline Lock 10 ML Syringe IV (11:54)
--- NOTE | 2021-10-31 11:54 | CASEMGMT ---
Physician was under the impression that patient will be going home on Hospice. Physician also said Friday would be the earliest he could go. SW met with patient, introduced self and role at [facility]. Patient confirms his plan is to return home on Hospice. Patient said his and daughter will be here at [facility] in a little bit. SW will check back. Kimberly BARBOUR
[2021-10-31 12:05] LABS: Bedside Glucose 142 mg/dL (74-106)
[2021-10-31] MEDS: Potassium Chloride Oral Tablet 20 MEQ PO (12:24)
[2021-10-31 12:40] LABS: Magnesium 2.1 mg/dL (1.6-2.6)
--- NOTE | 2021-10-31 13:55 | CASEMGMT ---
MARGOTH confirmed with patient's family and Hospice that the plan is for patient to go home on Hospice Friday. SW notified physician and Yuki in TCU. Family asked about transportation home and if Hospice would do this. SW let them know SW can check with Hospice, but it depends on if their mobile unit is running or not. Kimberly Sánchez NEW BUSINESS CLERK ANGLE
--- NOTE | 2021-10-31 14:31 | PCM.PN.HOSP ---
Subjective Subjective Follow-up on sepsis secondary to gangrenous bowel/small bowel obstruction/acute hypoxic respiratory failure: Patient was seen and examined. He denied any new complaint. His diet has been advanced to full liquid diet. Patient will be discharged on Friday with hospice. Objective Data Objective Data Vital Signs: Vital Signs Temp Pulse Resp BP Pulse Ox 97.8 F 55 L 18 113/72 98 10/31/21 13:30 10/31/21 13:30 10/31/21 13:30 10/31/21 13:30 10/31/21 13:30 Oxygen Flow Rate (L/min) 2 Oxygen Delivery Method [5] Room Air Oxygen Delivery Method [4] Room Air Oxygen Delivery Method [3] Room Air Oxygen Delivery Method [2] Room Air Oxygen Delivery Method [1 ( Room Air Initial Baseline)] Oxygen Delivery Method Room Air Weight: 73.2 kg Body Mass Index (BMI) 20.7 Intake & Output: Intake and Output for Last 24 Hours 10/29/21 10/30/21 10/31/21 23:59 23:59 23:59 Intake Total 4005.4 / 4425.4 2878.8 / 3118.8 1870 / 1870 Output Total 3800 / 4310 1465 / 1742 832 / 832 Balance 205.4 / 115.4 1413.8 / 1376.8 1038 / 1038 Medical Nutrition Assessment Dietitian: Malnutrition Criteria Met Start: 10/13/21 14:59 Freq: Status: Active Protocol: Document 10/30/21 10:41 AG (Rec: 10/30/21 11:23 AG [id number]) Nutrition Malnutrition Evidence of Malnutrition Exists Yes Malnutrition (severe): Acute Illness/Injury Evidenced By Suboptimal Energy Intake ( Severe),Weight Loss (Severe), Physical Changes (Mild) Clinical Problem Acute Disease or Injury Related Malnutrition Etiology severe, acute malnutrition r/t inadequate energy intake d/t recent hospitalizations, SBO, GI dysfunction Signs/Symptoms as evidenced by unintentional 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 No insulin or famotidine per provider order. 2) Continue daily weights and monitoring of electrolytes. 3.) Recommend advance diet as tolerated to transitional; currently on clear liquid diet - will add 240mL ensure clear w/ meals. Lab / Micro Data Result Diagrams: 10/31/21 05:50 10/31/21 05:50 Labs: Laboratory Results - last 24 hr 10/30/21 17:53: POC Glucose 107 10/31/21 00:19: POC Glucose 102 10/31/21 05:50: WBC 8.9, RBC 2.42 L, Hgb 7.0 L, Hct 21.8 L, MCV 90.1, MCH 28.9, MCHC 32.1, RDW Std Deviation 55.8 H, RDW Coeff of Denise 17.1 H, Plt Count 245, MPV 10.6, Immature Gran % (Auto) 0.800, Neut % (Auto) 76.0 H, Lymph % (Auto) 11.9 L, [place] % (Auto) 9.6, Eos % (Auto) 1.6, Baso % (Auto) 0.1, Absolute Neuts (auto) 6.7, Absolute Lymphs (auto) 1.05, Nucleated RBC % 0 10/31/21 05:50: Sodium 140, Potassium 3.5, Chloride 115 H, Carbon Dioxide 23.0, Anion Gap 2 L, BUN 27 H, Creatinine 0.50 L, Estim Creat Clear Calc 55.76, Est GFR (MDRD) Af Amer 201, Est GFR (MDRD) Non-Af 166, BUN/Creatinine Ratio 53.6 H, Glucose 103, Calcium 7.6 L, Total Bilirubin 0.60, Direct Bilirubin 0.25, AST 139 H, ALT 214 H, Alkaline Phosphatase 209 H, Total Protein 5.3 L, Albumin 1.2 L, Globulin 4.1 10/31/21 05:50: Magnesium 2.1 10/31/21 06:22: POC Glucose 115 H 10/31/21 08:20: Blood Type O POSITIVE, Antibody Screen NEGATIVE, Crossmatch See Detail 10/31/21 12:01: POC Glucose 142 H Micro: Microbiology 10/26/21 06:10 Blood Culture (Wb) - Left Hand Blood Culture - Final No growth in 5 days. 10/26/21 06:14 Blood Culture (Wb) - Left Forearm Blood Culture - Final No growth in 5 days. 10/25/21 Unknown Aspirate - Abdominal Gram Stain - Final 10/25/21 Unknown Aspirate - Abdominal Wound Culture - Final Escherichia coli 10/25/21 Unknown Aspirate - Abdominal Anaerobic Culture - Preliminary Checking for anaerobes, further studies to follow. 10/25/21 05:32 Stool Enteric Bacteriology - Final 10/25/21 05:32 Stool C. difficile DNA Amplification - Final 10/25/21 05:32 Stool Stool Lactoferrin - Final Physical Exam Narrative Physical exam: General: Alert, Oriented x3, Cooperative, No apparent distress HEENT: Atraumatic Oral: Moist Mucosa Neck: Supple Lungs: Diminished to auscultation at the bases Cardiovascular: HS I+II, regular, no murmurs Abdomen: Dressing intact and clean, bowel Sounds hypoactive, Soft, Non Tender Extremities: No edema Assessment & Plan Assessment/Plan (1) Ischemic necrosis of small bowel: (2) S/P small bowel resection: (3) Adynamic ileus: (4) History of small bowel obstruction: PLAN: 1. POD#4, s/p ileocecectomy (10/26/21), placement of THEA drain; patches of necrotic ileum at the previous anastomosis and distal to cecum Patient initially presented acute small bowel obstruction with gangrene of the jejenum s/p small bowel resection with anastomosis on 10/15/[address] of abdomen and pelvis on 10/24/21 showed colitis/abscess in the pelvis; status post IR drainage Wound cultures growing E. coli, ESBL WBC count generally improved to 8.9 from previous peak of 30.1 Continue on TPN, general surgery, critical care, ID following Continue IV PPI twice daily 2. Sepsis due to gangrenous bowel, managed as above Continue on IV meropenem ID following 3. Severe anemia, drop in hemoglobin to 7.0 from 7.7 Will transfuse 1 unit of packed RBC 4. Acute hypoxic respiratory failure, improved Likely secondary to atelectasis Chest x-ray on 10/27/21 showed pneumoperitoneum, left lung base atelectasis Continue to wean off oxygen, breathing treatment, encourage use of incentive spirometer 5. 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 Paroxysmal A. fib, currently normal sinus rhythm/ periods of A. fib Continue metoprolol and Eliquis 7. Hypotension, improved Continue to hold chlorothiazide and ramipril Continue on amlodipine and metoprolol with holding parameters Continue to monitor blood pressures 8. Severe protein calorie malnutrition related to the above, patient is on TPN, nutrition following 9. Rest of his chronic medical conditions including CAD status post CABG/hyperlipidemia/GERD remained stable Continue on statin, PPI 10. DVT prophylaxis?Lovenox subcu 11. CODE STATUS DNR CCA, no intubation Charges/Coding Visit Charges Inpatient E&M: 79315 Subs Hosp L2
[2021-10-31] MEDS: TPN - Clinimix E 8%-14% Soln 2,000 ML with Multivitamins 10 ML, Trace Elements 1 ML, Fo... 42 ML IV (16:39)
[2021-10-31 17:20] LABS: Bedside Glucose 125 mg/dL (74-106)
[2021-10-31] MEDS: Atorvastatin Calcium 40 MG Tablet NG (22:30)
[2021-10-31] MEDS: MELATONIN 3 MG TABLET PO (22:31)
[2021-11-01] VITALS (13 sets, daily range): BP systolic 104–148; BP diastolic 49–71; PULSE 48–81; RESP 16–20; TEMP 36.5–36.8; O2SAT 92–98
[2021-11-01 06:31] LABS: Bedside Glucose 128 mg/dL (74-106)
[2021-11-01] MEDS: Iron Polysaccharide Complex 150 MG CAPSULE PO ×2 (08:08→16:46)
--- NOTE | 2021-11-01 08:16 | PN.SURG_ITS ---
Subjective Subjective Patient denies abdominal pain, tolerated full liquids Objective Data Objective Data Vital Signs: Vital Signs Temp Pulse Resp BP Pulse Ox 97.9 F 57 L 20 H 124/49 H 93 11/01/21 02:49 11/01/21 07:53 11/01/21 02:49 11/01/21 02:49 11/01/21 07:15 Oxygen Flow Rate (L/min) 2 Oxygen Delivery Method [5] Room Air Oxygen Delivery Method [4] Room Air Oxygen Delivery Method [3] Room Air Oxygen Delivery Method [2] Room Air Oxygen Delivery Method [1 ( Room Air Initial Baseline)] Oxygen Delivery Method Room Air Weight: 162 lb 0.636 oz Body Mass Index (BMI) 20.7 Intake & Output: Intake and Output for Last 24 Hours 10/30/21 10/31/21 11/01/21 23:59 23:59 23:59 Intake Total 2878.8 / 3118.8 3243.3 / 3243.3 Output Total 1465 / 1742 1117 / 1517 910 / 910 Balance 1413.8 / 1376.8 2126.3 / 1726.3 -910 / -910 Medical Nutrition Assessment Dietitian: Malnutrition Criteria Met Start: 10/13/21 14:59 Freq: Status: Active Protocol: Document 10/30/21 10:41 AG (Rec: 10/30/21 11:23 AG [id number]) Nutrition Malnutrition Evidence of Malnutrition Exists Yes Malnutrition (severe): Acute Illness/Injury Evidenced By Suboptimal Energy Intake ( Severe),Weight Loss (Severe), Physical Changes (Mild) Clinical Problem Acute Disease or Injury Related Malnutrition Etiology severe, acute malnutrition r/t inadequate energy intake d/t recent hospitalizations, SBO, GI dysfunction Signs/Symptoms as evidenced by 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 No insulin or famotidine per provider order. 2) Continue daily weights and monitoring of electrolytes. 3.) Recommend advance diet as tolerated to transitional; currently on clear liquid diet - will add 240mL ensure clear w/ meals. Lab / Micro Data Result Diagrams: 10/31/21 05:50 10/31/21 05:50 Labs: Laboratory Results - last 24 hr 10/31/21 05:50: Magnesium 2.1 10/31/21 08:20: Blood Type O POSITIVE, Antibody Screen NEGATIVE, Crossmatch See Detail 10/31/21 12:01: POC Glucose 142 H 10/31/21 17:13: POC Glucose 125 H 11/01/21 06:24: POC Glucose 128 H Micro: Microbiology 10/26/21 06:10 Blood Culture (Wb) - Left Hand Blood Culture - Final No growth in 5 days. 10/26/21 06:14 Blood Culture (Wb) - Left Forearm Blood Culture - Final No growth in 5 days. 10/25/21 Unknown Aspirate - Abdominal Gram Stain - Final 10/25/21 Unknown Aspirate - Abdominal Wound Culture - Final Escherichia coli 10/25/21 Unknown Aspirate - Abdominal Anaerobic Culture - Preliminary Checking for anaerobes, further studies to follow. 10/25/21 05:32 Stool Enteric Bacteriology - Final 10/25/21 05:32 Stool C. difficile DNA Amplification - Final 10/25/21 05:32 Stool Stool Lactoferrin - Final Physical Exam Narrative NG in place Const alert and oriented x3 Cardio regular rate GI GI Narrative: Soft, nondistended, tender near incision, incision packed with wet-to-dry, good granulation tissue. THEA serosanguineous Extremity no clubbing, cyanosis or edema Neuro oriented x3 Psych affect normal Assessment & Plan Assessment/Plan (1) S/P small bowel resection: (2) Ischemic necrosis of small bowel: (3) Sepsis: (4) Leukocytosis: (5) History of atrial fibrillation: PLAN: Continue TPN advance to regular diet Discussed with [id number] Lorelei as well as his would plan for going home with hospice tomorrow Appreciate hospitalist assistance JACEY Denney M.D. Pager: [phone] [facility] [address] [place] [address], [facility], [address] [place] [address] Office: [phone]
[2021-11-01 11:36] LABS: Bedside Glucose 130 mg/dL (74-106)
[2021-11-01] MEDS: Menthol/Lanolin/Calamine/Znox 113 GM Tube 1 APPLIC TOPICAL ×2 (11:47→20:05)
[2021-11-01] MEDS: APIXABAN 2.5 MG TABLET PO ×2 (11:49→20:04)
[2021-11-01] MEDS: Pentoxifylline 400 MG Tablet PO ×2 (11:50→20:04)
[2021-11-01] MEDS: amLODIPine 10 MG Tablet NG (11:52)
--- NOTE | 2021-11-01 13:13 | PCM.PN.HOSP ---
Subjective Subjective Follow-up on sepsis secondary to gangrenous bowel/small bowel obstruction/acute hypoxic respiratory failure: Patient was seen and examined. Denied any new complaints. Has been having normal bowel movements, appetite is improving. Objective Data Objective Data Vital Signs: Vital Signs Temp Pulse Resp BP Pulse Ox 97.7 F L 51 L 18 135/55 H 94 11/01/21 08:30 11/01/21 08:30 11/01/21 08:30 11/01/21 08:30 11/01/21 08:30 Oxygen Flow Rate (L/min) 2 Oxygen Delivery Method [5] Room Air Oxygen Delivery Method [4] Room Air Oxygen Delivery Method [3] Room Air Oxygen Delivery Method [2] Room Air Oxygen Delivery Method [1 ( Room Air Initial Baseline)] Oxygen Delivery Method Room Air Weight: 73.5 kg Body Mass Index (BMI) 20.7 Intake & Output: Intake and Output for Last 24 Hours 10/30/21 10/31/21 11/01/21 23:59 23:59 23:59 Intake Total 2878.8 / 3118.8 3243.3 / 3243.3 620 / 620 Output Total 1465 / 1742 1117 / 1517 1185 / 1185 Balance 1413.8 / 1376.8 2126.3 / 1726.3 -565 / -565 Medical Nutrition Assessment Dietitian: Malnutrition Criteria Met Start: 10/13/21 14:59 Freq: Status: Active Protocol: Document 10/31/21 10:50 AG (Rec: 11/01/21 10:42 AG [id number]) Nutrition Malnutrition Evidence of Malnutrition Exists Yes Malnutrition (severe): Acute Illness/Injury Evidenced By Suboptimal Energy Intake ( Severe),Weight Loss (Severe), Physical Changes (Mild) Clinical Problem Acute Disease or Injury Related Malnutrition Etiology severe, acute malnutrition r/t inadequate energy intake d/t recent hospitalizations, SBO, GI dysfunction Signs/Symptoms as evidenced by unintentional 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 No insulin or famotidine per provider order. 2) Continue daily weights and monitoring of electrolytes. 3.) Recommend advance diet as tolerated to transitional; currently on full liquid diet- will continue 120mL ensure enlive w/ medpass and add magic cup w/ meals Lab / Micro Data Result Diagrams: 10/31/21 05:50 10/31/21 05:50 Labs: Laboratory Results - last 24 hr 10/31/21 08:20: Crossmatch See Detail 10/31/21 17:13: POC Glucose 125 H 11/01/21 06:24: POC Glucose 128 H 11/01/21 11:29: POC Glucose 130 H Micro: Microbiology 10/25/21 Unknown Aspirate - Abdominal Gram Stain - Final 10/25/21 Unknown Aspirate - Abdominal Wound Culture - Final Escherichia coli 10/25/21 Unknown Aspirate - Abdominal Anaerobic Culture - Final Bacteroides thetaiotaomicron 10/26/21 06:10 Blood Culture (Wb) - Left Hand Blood Culture - Final No growth in 5 days. 10/26/21 06:14 Blood Culture (Wb) - Left Forearm Blood Culture - Final No growth in 5 days. 10/25/21 05:32 Stool Enteric Bacteriology - Final 10/25/21 05:32 Stool C. difficile DNA Amplification - Final 10/25/21 05:32 Stool Stool Lactoferrin - Final Physical Exam Narrative Physical exam: General: Alert, Oriented x3, Cooperative, No apparent distress HEENT: Atraumatic Oral: Moist Mucosa Neck: Supple Lungs: Diminished to auscultation at the bases Cardiovascular: HS I+II, regular, no murmurs Abdomen: Dressing intact and clean, bowel Sounds hypoactive, Soft, Non Tender Extremities: No edema Eyes Eyes Narrative: Neck Neck Narrative: Cardio no JVD Assessment & Plan Assessment/Plan (1) Ischemic necrosis of small bowel: (2) S/P small bowel resection: (3) Adynamic ileus: (4) History of small bowel obstruction: PLAN: 1. POD#5, s/p ileocecectomy (10/26/21), placement of THEA drain; patches of necrotic ileum at the previous anastomosis and distal to cecum Patient initially presented acute small bowel obstruction with gangrene of the jejenum s/p small bowel resection with anastomosis on 10/15/[address] of abdomen and pelvis on 10/24/21 showed colitis/abscess in the pelvis; status post IR drainage Wound cultures growing E. coli, ESBL WBC count generally improved to 8.9 from previous peak of 30.1 Continue on TPN, general surgery, critical care, ID following Continue IV PPI twice daily 2. Sepsis due to gangrenous bowel, managed as above Completed antibiotics 3. Severe anemia, drop in hemoglobin to 7.0 from 7.7 s/p 1 unit pRBC on 10/31/21 4. Acute hypoxic respiratory failure, improved Likely secondary to atelectasis Chest x-ray on 10/27/21 showed pneumoperitoneum, left lung base atelectasis Continue to wean off oxygen, breathing treatment, encourage use of incentive spirometer 5. 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 Paroxysmal A. fib, currently normal sinus rhythm/ periods of A. fib Continue metoprolol and Eliquis 7. Hypotension, improved Continue to hold chlorothiazide and ramipril Continue on amlodipine and metoprolol with holding parameters Continue to monitor blood pressures 8. Severe protein calorie malnutrition related to the above, patient is on TPN, nutrition following 9. Rest of his chronic medical conditions including CAD status post CABG/hyperlipidemia/GERD remained stable Continue on statin, PPI 10. DVT prophylaxis?Lovenox subcu 11. CODE STATUS DNR CCA, no intubation Charges/Coding Visit Charges Inpatient E&M: 02841 Subs Hosp L2
--- NOTE | 2021-11-01 13:31 | PCM.PN.ID ---
Physical Exam Narrative Feeling better, no fever, minimal abd soreness Const alert and no apparent distress Resp normal air movement and clear to auscultation bilaterally Cardio regular rate and regular rhythm GI soft to palpation, non-tender and non-distended Skin no rashes or lesions noted ID ID: Route of nutrition/ use of supplements: [] Nutritional Intake: [] IV Site: [] Mahan Catheter: [] Assessment & Plan Assessment/Plan (1) Ischemic necrosis of small bowel: PLAN: Aspirate 10/25 with esbl ecoli. Taken to OR 10/26/[address] Denney for ileocecectomy. Wbc dramatically improved, ARCHIE resolved, fever resolved. Completed colt 10/31. Mental status improved. Will follow as needed, please call with any new issues (2) Sepsis:
[2021-11-01] MEDS: TPN - Clinimix E 8%-14% Soln 2,000 ML with Multivitamins 10 ML, Trace Elements 1 ML, Fo... 42 ML IV (16:40)
[2021-11-01 18:26] LABS: Bedside Glucose 144 mg/dL (74-106)
[2021-11-01] MEDS: Acetaminophen 325 MG Tablet 650 MG PO (20:02)
[2021-11-01] MEDS: MELATONIN 3 MG TABLET PO (20:02)
[2021-11-01] MEDS: Metoprolol Tartrate 100 MG Tablet PO (20:05)
[2021-11-01] MEDS: Atorvastatin Calcium 40 MG Tablet NG (20:05)
[2021-11-02 03:00] VITALS: BP 97/53; PULSE 55; PULSE 56; RESP 16; TEMP 36.6; O2SAT 94
[2021-11-02 08:04] VITALS: O2SAT 92
[2021-11-02 09:00] VITALS: PULSE 57
--- NOTE | 2021-11-02 09:09 | PCM.PN.SRG ---
Subjective Subjective Patient states he is not hungry this morning. THEA sanguinous Objective Data Objective Data Vital Signs: Vital Signs Temp Pulse Resp BP Pulse Ox 97.9 F 55 L 16 97/53 L 94 11/02/21 03:00 11/02/21 03:00 11/02/21 03:00 11/02/21 03:00 11/02/21 03:00 Oxygen Flow Rate (L/min) 2 Oxygen Delivery Method [5] Room Air Oxygen Delivery Method [4] Room Air Oxygen Delivery Method [3] Room Air Oxygen Delivery Method [2] Room Air Oxygen Delivery Method [1 ( Room Air Initial Baseline)] Oxygen Delivery Method Room Air Weight: 162 lb 14.746 oz Body Mass Index (BMI) 20.7 Intake & Output: Intake and Output for Last 24 Hours 10/31/21 11/01/21 11/02/21 23:59 23:59 23:59 Intake Total 3243.3 / 3243.3 3461.2 / 3461.2 Output Total 1117 / 1517 1290 / 1290 Balance 2126.3 / 1726.3 2171.2 / 2171.2 Medical Nutrition Assessment Dietitian: Malnutrition Criteria Met Start: 10/13/21 14:59 Freq: Status: Active Protocol: Document 10/31/21 10:50 AG (Rec: 11/01/21 10:42 AG [id number]) Nutrition Malnutrition Evidence of Malnutrition Exists Yes Malnutrition (severe): Acute Illness/Injury Evidenced By Suboptimal Energy Intake ( Severe),Weight Loss (Severe), Physical Changes (Mild) Clinical Problem Acute Disease or Injury Related Malnutrition Etiology severe, acute malnutrition r/t inadequate energy intake d/t recent hospitalizations, SBO, GI dysfunction Signs/Symptoms as evidenced by unintentional 22.9#/12.5% wt loss x 2 months [employer];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 No insulin or famotidine per provider order. 2) Continue daily weights and monitoring of electrolytes. 3.) Recommend advance diet as tolerated to transitional; currently on full liquid diet- will continue 120mL ensure enlive w/ medpass and add magic cup w/ meals Lab / Micro Data Result Diagrams: 10/31/21 05:50 10/31/21 05:50 Labs: Laboratory Results - last 24 hr 11/01/21 11:29: POC Glucose 130 H 11/01/21 18:15: POC Glucose 144 H Micro: Microbiology 10/25/21 Unknown Aspirate - Abdominal Gram Stain - Final 10/25/21 Unknown Aspirate - Abdominal Wound Culture - Final Escherichia coli 10/25/21 Unknown Aspirate - Abdominal Anaerobic Culture - Final Bacteroides thetaiotaomicron 10/26/21 06:10 Blood Culture (Wb) - Left Hand Blood Culture - Final No growth in 5 days. 10/26/21 06:14 Blood Culture (Wb) - Left Forearm Blood Culture - Final No growth in 5 days. 10/25/21 05:32 Stool Enteric Bacteriology - Final 10/25/21 05:32 Stool C. difficile DNA Amplification - Final 10/25/21 05:32 Stool Stool Lactoferrin - Final Physical Exam Const alert and oriented x3 Cardio regular rate GI GI Narrative: Soft, nondistended, tender near incision, incision packed with wet-to-dry, good granulation tissue. THEA sanguinous?remove THEA stool did come out of the THEA site after removal. Dressing was placed. Extremity no clubbing, cyanosis or edema Neuro oriented x3 Psych affect normal Assessment & Plan Assessment/Plan (1) S/P small bowel resection: (2) Ischemic necrosis of small bowel: (3) Sepsis: (4) Leukocytosis: (5) History of atrial fibrillation: PLAN: D/c drain and after removal had stool coming out of the THEA site previously drain serosanguineous. We will try to dress the site with a bag to help control drainage. Discussed with patient's as well as [id number]. As this was a possible scenario would previously discussed since he has been having issues due with blood supply to his small bowel causing necrosis for the previous 2 surgeries. Plan to d/c to hospice today. d/w Dr. Trevino. Justyna Denney M.D. Pager: [phone] [facility] [address] [place] [address], [facility], [address] [place] [id number] Office: [phone]
[2021-11-02 09:15] LABS: ALB/GLOB Ratio 0.3 RATIO (0.9-2.4); AST(SGOT) 42 U/L (15-37); Alanine Aminotransfer ALT/SGPT 110 U/L (16-61); Albumin, Serum 1.2 g/dL (3.2-5.0); Alkaline Phosphatase 182 U/L (45-117); Anion Gap 1 (5-15); BUN 24 mg/dL (7-18); BUN/Creat Ratio 46.3 RATIO (10-20); Calcium,Total 7.9 mg/dL (8.5-10.1); Chloride 116 mmol/L (98-107); Creatinine, Serum 0.52 mg/dL (0.70-1.30); EST Glomerular Filtration Rate 161 mL/min (>60); Est Glom Filt Rate - Afr Amer 195 mL/min (>60); Estimated Creatinine Clearance 55.76 ml/min; Globulin 4.3 g/dL (2.2-4.2); Glucose 106 mg/dL (74-106); Potassium 3.7 mmol/L (3.5-5.1); Protein, Total 5.5 g/dL (6.4-8.2); Sodium Level 142 mmol/L (136-145)
--- NOTE | 2021-11-02 09:22 | PCM.DC.SUM ---
Providers Date of Admission: 10/13/21 Date of Discharge: 11/02/21 Primary Care Physician: David Rios MD Consultations 10/13/21 11:47 Consult: General Surgery Routine Consulting Provider: Justyna Denney Reason for Consult: Ileus with recent Ex lap with HAYDEN for SBO EMERGENT Consult: No MD Notified: Yes Date Notified: 10/13/21 Time Notified: 10:27 Method of Notification: Verbal 10/16/21 09:44 Consult: Onc/Wound/warehouse clerk Routine Comment: Reason for Consult:: wound care 10/26/21 05:48 Consult: Infectious Disease Routine Consulting Provider: Dat Lema Reason for Consult: Persistent leukocytosis and abdominal abscess EMERGENT Consult: No MD Notified: Yes Date Notified: 10/26/21 Time Notified: 06:04 Method of Notification: Answering Service 10/26/21 15:37 Consult: Trouble Dispatcher / Pulmonary Medicine Routine Consulting Provider: Pulmonary Medicine [facility] Reason for Consult: icu EMERGENT Consult: Yes MD Notified: Yes Date Notified: 10/26/21 Time Notified: 15:19 Method of Notification: Verbal 10/26/21 15:42 Consult: Hospice / Palliative Care Routine Consulting Provider: [facility] Reason for Consult: evaluation and discussion with family EMERGENT Consult: No MD Notified: Yes Date Notified: 10/26/21 Time Notified: 15:42 Method of Notification: Verbal Reason For Visit: ILEUS Diagnosis Discharge Diagnosis (1) S/P small bowel resection: Status: Acute Code(s): Z90.49 - Acquired absence of other specified parts of digestive tract (2) Ischemic necrosis of small bowel: Status: Resolved Code(s): K55.029 - Acute infarction of small intestine, extent unspecified (3) Sepsis: Status: Acute Code(s): A41.9 - Sepsis, unspecified organism (4) Leukocytosis: Status: Acute Code(s): D72.829 - Elevated white blood cell count, unspecified (5) History of atrial fibrillation: Status: Acute Code(s): Z86.79 - Personal history of other diseases of the circulatory system Medications at Discharge Home Medications pentoxifylline 400 mg PO BID 06/23/13 rosuvastatin 20 mg PO QHS 06/23/13 multivitamin 1 tab PO DAILY 06/25/20 famotidine 20 mg PO DAILY 09/08/21 ferrous sulfate [FeroSul] 325 mg PO BID 09/08/21 folic acid 1 mg PO DAILY 09/08/21 sennosides [Senokot] 8.6 mg PO BID PRN 09/08/21 Eliquis 2.5 mg PO BID 10 Days #20 tab 09/25/21 acetaminophen 1,000 mg PO Q8 09/28/21 aspirin 325 mg PO DAILY 09/28/21 polysaccharide iron complex [Ferrex 150] 150 mg PO BIDCM 09/28/21 food supplemt, lactose-reduced [Ensure Enlive] 120 ml PO 4X/DAY 30 Days #120 ml 11/02/21 metoprolol tartrate 25 mg PO BID 30 Days #60 tab 11/02/21 Hospital Course Operations None Procedures None and 2-D Echocardiogram Summary of Care Provided Minutes Spent on Discharge: 45 Hospital Course: 86-year-old male with multiple comorbid conditions including CAD, chronic atrial flutter, hypertension, who has had several admissions in this hospital starting from 09/08/21, after a fall on his newly operated left hip and was found a proximal intertrochanteric fracture. He was discharged on 09/10/21. He was readmitted on 09/28/21 with nausea, vomiting and diarrhea and found to have small bowel obstruction status post exploratory laparotomy lysis of adhesions on 10/01/21. He was discharged back to TCU on 10/05/21 and developed abdominal pain again on 10/12/21 and was readmitted back into the hospital. Patient has had a long and protracted hospital stay requiring multiple surgeries. Patient had a small bowel resection with anastomosis on 10/02/21. He was managed conservatively. He developed abdominal pain on postop CT of abdomen pelvis on 10/24/21 showed colitis/abscess in the pelvis. Patient had IR drainage done. With persistent ileus, patient was started on TPN. He went back for exploratory laparotomy and found with patches of necrotic ileum at the previous anastomosis and distal to the cecum. Had an ileocecectomy on 10/26/21 to placement of THEA drainage. Patient was said to have sepsis secondary to the continuous bowel monitor IV meropenem. Critical care, infectious disease were consulted. Patient was managed on IV meropenem. He completed antibiotics during this hospital stay. Family meeting was held, hospice recommended. Patient however stated doing well, was transferred out of ICU, and and his diet was advanced. He was restarted on his Eliquis a couple of days prior to this. Patient however started to have fecal matter coming out of his THEA drain on the day of discharge. General surgery discussed with family and the plan was to have him discharged to Hospice. Physical Exam Narrative Physical exam: General: Alert, Oriented x3, Cooperative, No apparent distress HEENT: Atraumatic Oral: Moist Mucosa Neck: Supple Lungs: Diminished to auscultation at the bases Cardiovascular: HS I+II, regular, no murmurs Abdomen: Dressing intact and clean, bowel Sounds hypoactive, Soft, Non Tender Extremities: No edema Medical Records Data Medical Nutrition Assessment Dietitian: Malnutrition Criteria Met Start: 10/13/21 14:59 Freq: Status: Active Protocol: Document 10/31/21 10:50 AG (Rec: 11/01/21 10:42 AG [id number]) Nutrition Malnutrition Evidence of Malnutrition Exists Yes Malnutrition (severe): Acute Illness/Injury Evidenced By Suboptimal Energy Intake ( Severe),Weight Loss (Severe), Physical Changes (Mild) Clinical Problem Acute Disease or Injury Related Malnutrition Etiology severe, acute malnutrition r/t inadequate energy intake d/t recent hospitalizations, SBO, GI dysfunction Signs/Symptoms as evidenced by unintentional 22.9#/12.5% wt loss x 2 months [employer];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 No insulin or famotidine per provider order. 2) Continue daily weights and monitoring of electrolytes. 3.) Recommend advance diet as tolerated to transitional; currently on full liquid diet- will continue 120mL ensure enlive w/ medpass and add magic cup w/ meals Weight / BMI Weight Weight: 73.9 kg Body Mass Index (BMI) 20.7 ABG / Lab / Microbiology Data Result Diagrams: 10/31/21 05:50 11/02/21 08:15 Laboratory: Laboratory Results - last 24 hr 11/01/21 11:29: POC Glucose 130 H 11/01/21 18:15: POC Glucose 144 H 11/02/21 08:15: Sodium 142, Potassium 3.7, Chloride 116 H, Carbon Dioxide 25.0, Anion Gap 1 L, BUN 24 H, Creatinine 0.52 L, Estim Creat Clear Calc 55.76, Est GFR (MDRD) Af Amer 195, Est GFR (MDRD) Non-Af 161, BUN/Creatinine Ratio 46.3 H, Glucose 106, Calcium 7.9 L, Total Bilirubin 0.50, AST 42 H, ALT 110 H, Alkaline Phosphatase 182 H, Total Protein 5.5 L, Albumin 1.2 L, Globulin 4.3 H, Albumin/Globulin Ratio 0.3 L Microbiology: Microbiology 10/25/21 Unknown Aspirate - Abdominal Gram Stain - Final 10/25/21 Unknown Aspirate - Abdominal Wound Culture - Final Escherichia coli 10/25/21 Unknown Aspirate - Abdominal Anaerobic Culture - Final Bacteroides thetaiotaomicron 10/26/21 06:10 Blood Culture (Wb) - Left Hand Blood Culture - Final No growth in 5 days. 10/26/21 06:14 Blood Culture (Wb) - Left Forearm Blood Culture - Final No growth in 5 days. 10/25/21 05:32 Stool Enteric Bacteriology - Final 10/25/21 05:32 Stool C. difficile DNA Amplification - Final 10/25/21 05:32 Stool Stool Lactoferrin - Final D/C Instructions Discharge Diet: No restrictions Meaningful Use Info Meaningful Use Diagnoses (Choose all that apply): None applicable Discharge Plan Admission Admit Date/Time: 10/13/21 10:20 Primary Reason for Your Visit: Abdominal pain Attending Provider: Mirlande Trevino Primary Care Provider: David Rios Consulting Providers: Justyna Denney ; Oneida Virk ; Moustapha Posada ; Claritza Levy ; Shilpa Blanco ; Olga Ferrer ; Renu Balbuena MANAGER PRODUCT DESIGN ; Dat Lema ; Willi Padilla ; Patrice Hyman ; Anna Valles MANAGER PRODUCT DESIGN Instructions Additional Instructions / Restrictions: Take note of changes to your medications. You are being discharged with hospice. Discharge Orders/Prescriptions Prescriptions: New Ensure Enlive 0.08 gram-1.5 kcal/mL Liquid 120 ml PO 4X/DAY 30 Days Qty: 120 RF: 0 metoprolol tartrate 25 mg tablet 25 mg PO BID 30 Days Qty: 60 RF: 0 Continued multivitamin Tablet 1 tab PO DAILY RF: 0 pentoxifylline 400 MG tablet 400 mg PO BID RF: 0 rosuvastatin 20 MG tablet 20 mg PO QHS RF: 0 famotidine 20 mg tablet 20 mg PO DAILY RF: 0 sennosides [Senokot] 8.6 mg Tablet 8.6 mg PO BID PRN (Reason: Constipation) RF: 0 ferrous sulfate [FeroSul] 325 mg (65 mg iron) tablet 325 mg PO BID RF: 0 folic acid 1 mg tablet 1 mg PO DAILY RF: 0 Eliquis 2.5 mg tablet 2.5 mg PO BID 10 Days Qty: 20 RF: 0 aspirin 325 mg tablet 325 mg PO DAILY RF: 0 polysaccharide iron complex [Ferrex 150] 150 mg iron capsule 150 mg PO BIDCM RF: 0 acetaminophen 500 mg tablet 1,000 mg PO Q8 RF: 0 Discontinued metoprolol ta-hydrochlorothiaz 100-25 mg tablet 1 tab PO DAILY RF: 0 omega-3 fatty acids-fish oil [Fish Oil] 360-1,200 mg capsule 1 cap PO DAILY RF: 0 furosemide [Lasix] 20 mg tablet 20 mg PO DAILY PRN PRN (Reason: Swelling) RF: 0 amlodipine 10 MG tablet 10 mg PO DAILY RF: 0 ramipril 10 mg capsule 10 mg PO DAILY RF: 0 tramadol 50 mg tablet 50 mg PO Q6H PRN PRN (Reason: Pain) RF: 0 pantoprazole 40 mg tablet,delayed release (DR/EC) 40 mg PO DAILY RF: 0 Referrals / Follow Up: David Rios MD [Primary Care Provider] - Within 1 Week Disposition Disposition (needs filled in before D/C Order can be placed): Home, Self Care Charges/Coding Visit Charges Inpatient E&M: 32362 Disch Hosp
--- NOTE | 2021-11-02 09:33 | CASEMGMT ---
Addendum entered by Kimberly Sánchez 11/02/21 10:09: Rebecca said they can transport patient home. Rebecca said they do not normally do this. MARGOTH expressed understanding and explained that the family said the business support liaison told them Hospice could transport home. Transport was set up for noon. SW notified RN, patient, secretary of police, patient's daughter Elizabeth who was with patient's . MARGOTH will also notify physician. Plan: d/c home on [facility]. Hospice transported via their mobile unit. Kimberly BARBOUR Original Note: MARGOTH called Hospice to see if their mobile unit is able to transport patient home today. Rebecca said she will check and get back to . Kimberly BARBOUR
[2021-11-02 10:00] VITALS: PULSE 73
[2021-11-02] MEDS: Iron Polysaccharide Complex 150 MG CAPSULE PO (10:00)
[2021-11-02] MEDS: Metoprolol Tartrate 100 MG Tablet PO (10:00)
[2021-11-02] MEDS: APIXABAN 2.5 MG TABLET PO (10:00)
[2021-11-02] MEDS: amLODIPine 10 MG Tablet NG (10:00)
[2021-11-02] MEDS: Pentoxifylline 400 MG Tablet PO (10:00)
[2021-11-02] MEDS: Menthol/Lanolin/Calamine/Znox 113 GM Tube 1 APPLIC TOPICAL (10:04)
--- NOTE | 2021-11-02 10:05 | WOUNDNOTE ---
Was asked by Dr Denney to assess the drain site to the right lower abdomen. the drain was pulled this am by Dr Denney. there was stool noted to be coming from the old drain site. pt states it was very painful with the drain removal, but denies much pain at this time. there was a small amount of stool noted on the old dressing. cleansed abdomen with soap and water. pat dry. applied a pediatric ostomy appliance around the old drain site to protect skin and keep the stool off the abdomen. pt tolerated well.
== END 2021-11-02 12:54 | disposition home or self-care (01) | DRG 329 ==
LOC: ED 10:27 → MS3 10-15 11:02 → ICU 10-26 15:50 → PCU 10-29 15:05
PROVIDERS: Internal Medicine Critical Care Medicine; Physician Assistant; Student in an Organized Health Care Education/Training Program; Surgery; Admitting Provider Internal Medicine; Emergency Provider Emergency Medicine; PCP Family Medicine; Visit Provider Internal Medicine
PROC: 0DBA0ZX Excision of Jejunum, Open Approach, Diagnostic (ICD-10-PCS; CPT 44202; principal; 2021-10-15 13:00)
PROC: 0DBB0ZZ Excision of Ileum, Open Approach (ICD-10-PCS; CPT 49000; principal; 2021-10-26 13:40)
DX: K56.609 Unspecified intestinal obstruction, unspecified as to partial versus complete obstruction (principal); K65.1 Peritoneal abscess; K55.029 Acute infarction of small intestine, extent unspecified; J96.01 Acute respiratory failure with hypoxia; K72.00 Acute and subacute hepatic failure without coma; A41.9 Sepsis, unspecified organism; E43 Unspecified severe protein-calorie malnutrition; I48.92 Unspecified atrial flutter; N17.9 Acute kidney failure, unspecified; J90 Pleural effusion, not elsewhere classified; J98.11 Atelectasis; I48.0 Paroxysmal atrial fibrillation; I73.9 Peripheral vascular disease, unspecified; K56.0 Paralytic ileus; E86.0 Dehydration; E87.6 Hypokalemia; I25.10 Atherosclerotic heart disease of native coronary artery without angina pectoris; N40.0 Benign prostatic hyperplasia without lower urinary tract symptoms; I25.2 Old myocardial infarction; M19.90 Unspecified osteoarthritis, unspecified site; E78.5 Hyperlipidemia, unspecified; D53.9 Nutritional anemia, unspecified; M18.31 Unilateral post-traumatic osteoarthritis of first carpometacarpal joint, right hand; K21.9 Gastro-esophageal reflux disease without esophagitis; B96.20 Unspecified Escherichia coli [E. coli] as the cause of diseases classified elsewhere; D50.9 Iron deficiency anemia, unspecified; I95.9 Hypotension, unspecified; I12.9 Hypertensive chronic kidney disease with stage 1 through stage 4 chronic kidney disease, or unspecified chronic kidney disease; F32.A Depression, unspecified; Z86.79 Personal history of other diseases of the circulatory system; Z90.49 Acquired absence of other specified parts of digestive tract; Z79.82 Long term (current) use of aspirin; Z79.01 Long term (current) use of anticoagulants; Z79.899 Other long term (current) drug therapy; M81.0 Age-related osteoporosis without current pathological fracture; H91.93 Unspecified hearing loss, bilateral; Z95.1 Presence of aortocoronary bypass graft; Z87.891 Personal history of nicotine dependence; Z68.25 Body mass index [BMI] 25.0-25.9, adult; Z87.19 Personal history of other diseases of the digestive system; M97.02XD Periprosthetic fracture around internal prosthetic left hip joint, subsequent encounter; Z53.31 Laparoscopic surgical procedure converted to open procedure; Z98.0 Intestinal bypass and anastomosis status; R30.0 Dysuria; K66.8 Other specified disorders of peritoneum
CPT/HCPCS: 20501; 36415; 36569; 71045; 74018; 74177; 74250; 76705; 77012; 80048; 80053; 80076; 81001; 82247; 82248; 82962; 83630; 83690; 83735; 84100; 84132; 84134; 84145; 84478; 85025; 85027; 85610; 85730; 86850; 86900; 86901; 86920; 86922; 87040; 87070; 87075; 87077; 87186; 87205; 87493; 87506; 88305; 88307; 93005; 94762; 97110; 97116; 97162; 97166; 97530; 97535; 97802; 97803; 99156; 99251; 99285; J2185; J7030; J7040; J7050; J7120; P9016; Q9967; A4216; G0463; J0610; J1940; J2405; J3490